=== PATIENT | male | born 1955 | race Caucasian/White ===

== ENCOUNTER 2016-05-18 17:28 | Inpatient (IN) | payer MEDICAID ==
--- NOTE | 2016-05-15 23:00 | NUR ---
PT SLEEPING, CALL LIGHT IN REACH, BED IS LOW,SRX2
[~2016-05-18] VITALS: Ht 188 cm; Wt 144.7 kg
[~2016-05-18 17:28] MED LIST: BAYER CHEWABLE81 MG PO; BENZONATATE200 MG PO; BUMEX 1 MG TAB1 MG PO; COREG6.25 MG PO; COUMADIN7.5 MG; COUMADIN7.5 MG PO; FLORASTOR250 MG PO; FLUTICASONE PRO16 GM NASAL; FOLIC ACID1 MG PO; GLUCOPHAGE1000 MG PO; HUMULIN 70100 UNIT/1 SQ; HYDROCHLOROTHIA25 MG PO; LEVAQUIN500 MG PO; LISINOPRIL10 MG PO; MUCINEX DM ER1 EAC1 PO; NICODERM C1 PATCH .1 TRANSDERM; PREDNISONE20 MG PO; SINGULAIR10 MG PO; TOPROL XL50 MG PO; ZANTAC150 MG PO
[2016-05-18 18:16] LABS: BASOPHILS 0.3 % (0.0-2.0); EOSINOPHILS 3.5 % (0-7); HEMATOCRIT 44.6 % (42.0-54.0); HEMOGLOBIN 14.1 g/dL (13.5-17.5); IMMATURE GRANULOCYTES 0.3 % (0-5); LYMPHOCYTES 19.3 % (15-50); MCH 28.3 pg (26.0-34.0); MCHC 31.6 g/dL (31.0-37.0); MCV 89.4 fL (80.0-100.0); MEAN PLATELET VOLUME 12.1 fL (7.4-10.4); MONOCYTES 6.1 % (2-11); NEUTROPHILS 70.5 % (40-80); PLATELET COUNT 217 10x3/uL (130-400); RBC 4.99 10x6/uL (4.20-6.10); RDW 14.7 % (11.5-14.5); WBC 11.2 10x3/uL (4.8-10.8)
[2016-05-18 18:35] LABS: ALBUMIN 3.4 g/dL (3.4-5.0); ALKALINE PHOSPHATASE 97 U/L (46-116); ALT (SGPT) 11 U/L (10-68); BILIRUBIN - TOTAL 0.92 mg/dL (0.2-1.3); CALC OSMOLALITY 283 mosm/kg (275-300); CALCIUM 9.4 mg/dL (8.5-10.1); CARBON DIOXIDE 36.4 mmol/L (21.0-32.0); CHLORIDE - SERUM 96 mmol/L (98-107); CREATININE - SERUM 0.9 mg/dL (0.6-1.3); PROTEIN - SERUM 7.3 g/dL (6.4-8.2); SODIUM 138 mmol/L (136-145); UREA NITROGEN 12 mg/dL (7-18); eGFR NON AFRICAN AMERICAN > 90 mL/min (90-120)
[2016-05-18 18:40] LABS: GLUCOSE 246 mg/dL (74-106)
[2016-05-18 18:44] LABS: PRO BNP 1017 pg/mL (0-125)
[2016-05-18 18:54] LABS: TROPONIN-I < 0.017 ng/mL (0.000-0.060)
[2016-05-18 19:06] LABS: INR 1.16 (0.85-1.17); PROTIME 14.7 SECONDS (11.6-15.0)
[2016-05-18 19:22] LABS: MAGNESIUM - SERUM 1.5 mg/dL (1.8-2.4)
--- NOTE | 2016-05-18 21:45 | NUR ---
RECEIVED FROM ER VIA WHEELCHAIR, 02-3.5 L, IV I RFA, LEVINQUIN INFUSING, PT DENIES ANY NEEDS, CALL LIGHT IN REACH
[2016-05-18] MEDS ORDERED: FUROSEMIDE40 MG PO (21:58)
[2016-05-18] MEDS ORDERED: FERROUS SULFAT325 MG PO (21:59)
[2016-05-18] MEDS ORDERED: METOPROLOL TART50 MG PO (22:00)
[2016-05-19 00:38] VITALS: BP 87/48
--- NOTE | 2016-05-19 03:53 | NUR ---
DE ALCHOLIZER AT BEDSIDE TO OBTAIN VITALS, CALL LIGHT IN REACH. WILL CONTINUE WITH PLAN OF CARE.
[2016-05-19 04:40] VITALS: BP 116/64
--- NOTE | 2016-05-19 05:04 | NUR ---
SLEEPING. HOME CPAP MACHINE ON, CALL LIGHT IN REACH, BED IS LOW, SRX2
[2016-05-19 06:19] LABS: CALC OSMOLALITY 288 mosm/kg (275-300); CALCIUM 8.9 mg/dL (8.5-10.1); CARBON DIOXIDE 34.4 mmol/L (21.0-32.0); CHLORIDE - SERUM 97 mmol/L (98-107); CREATININE - SERUM 0.8 mg/dL (0.6-1.3); POTASSIUM - SERUM 3.4 mmol/L (3.5-5.1); SODIUM 138 mmol/L (136-145); UREA NITROGEN 12 mg/dL (7-18); eGFR NON AFRICAN AMERICAN > 90 mL/min (90-120)
[2016-05-19 06:20] LABS: GLUCOSE 329 mg/dL (74-106)
[2016-05-19 06:40] LABS: BASOPHILS 0.4 % (0.0-2.0); EOSINOPHILS 3.4 % (0-7); HEMATOCRIT 42.3 % (42.0-54.0); HEMOGLOBIN 13.2 g/dL (13.5-17.5); IMMATURE GRANULOCYTES 0.2 % (0-5); LYMPHOCYTES 18.4 % (15-50); MCH 27.6 pg (26.0-34.0); MCHC 31.2 g/dL (31.0-37.0); MCV 88.5 fL (80.0-100.0); MEAN PLATELET VOLUME 12.7 fL (7.4-10.4); MONOCYTES 7.3 % (2-11); NEUTROPHILS 70.3 % (40-80); PLATELET COUNT 203 10x3/uL (130-400); RBC 4.78 10x6/uL (4.20-6.10); RDW 14.8 % (11.5-14.5); WBC 9.4 10x3/uL (4.8-10.8)
--- NOTE | 2016-05-19 07:15 | NUR ---
RECIEVED REPORT ON PATIENT,PATIENT IS ALERT AND ORIENTED AT THIS TIME. PATIENT HAS A R FA IV THAT IS SL AT THIS TIME. PATIENT IS ST ON MONITOR WITH A RATE OF 106. PATIENT DENIES ANY NEEDS OR PAIN AT THIS TIME. BED IS LOW AND LOCKED. CALL LIGHT IN REACH. WILL CONT TO MONITOR PATIENT. CPOC
[2016-05-19 08:00] VITALS: BP 114/61
--- NOTE | 2016-05-19 09:00 | NUR ---
LASIX GIVEN, ASSESSMENT DONE. PATIENT DENIES ANY NEEDS. CPOC
--- NOTE | 2016-05-19 10:00 | NUR ---
PATIENT IV INFILTRATED IN R FA, IV RESITED TO R WRIST, 22G. SL AT THIS TIME. R FA IV DC WITH CATH TIP INTACT. CPOC
--- NOTE | 2016-05-19 11:30 | NUR ---
PATIENT FSBS 275, 10 UNITS OF HUMALOG GIVEN PER SLIDING SCALE. CPOC
[2016-05-19 12:00] VITALS: BP 117/50
[2016-05-19 13:01] VITALS: Ht 188 cm; Wt 144.7 kg
[2016-05-19 16:00] VITALS: BP 122/63
--- NOTE | 2016-05-19 16:45 | NUR ---
8 UNITS OF HUMALOG GIVEN PER SLIDING SCALE. WAITING ON PHARMACY TO BRING UP PATIENT NOVOLIN. PATIENT DENIES ANY PAIN. DR MCFADDEN AT BEDSIDE. CPOC
--- NOTE | 2016-05-19 17:53 | NUR ---
POTASSIUM GIVEN PER ELECTROLYTE PROTCOL
--- NOTE | 2016-05-19 19:30 | NUR ---
RECEIVED REPORT, 023L, [id number], IV- R.WRIST-SL, CALL LIGHT IN REACH, BED IS LOW,SRX2
[2016-05-19 19:51] VITALS: BP 109/49
[2016-05-20 03:35] LABS: BASOPHILS 0.2 % (0.0-2.0); EOSINOPHILS 3.8 % (0-7); HEMOGLOBIN 12.8 g/dL (13.5-17.5); IMMATURE GRANULOCYTES 0.2 % (0-5); LYMPHOCYTES 24.2 % (15-50); MCH 27.8 pg (26.0-34.0); MCHC 31.2 g/dL (31.0-37.0); MCV 88.9 fL (80.0-100.0); MEAN PLATELET VOLUME 12.1 fL (7.4-10.4); MONOCYTES 6.1 % (2-11); NEUTROPHILS 65.5 % (40-80); PLATELET COUNT 185 10x3/uL (130-400); RBC 4.61 10x6/uL (4.20-6.10); RDW 14.8 % (11.5-14.5); WBC 10.4 10x3/uL (4.8-10.8)
[2016-05-20 04:04] LABS: CALC OSMOLALITY 285 mosm/kg (275-300); CALCIUM 9.1 mg/dL (8.5-10.1); CARBON DIOXIDE 34.2 mmol/L (21.0-32.0); CHLORIDE - SERUM 99 mmol/L (98-107); GLUCOSE 221 mg/dL (74-106); MAGNESIUM - SERUM 1.6 mg/dL (1.8-2.4); PHOSPHOROUS 3.5 mg/dL (2.5-4.9); POTASSIUM - SERUM 3.8 mmol/L (3.5-5.1); PRO BNP 1166 pg/mL (0-125); SODIUM 139 mmol/L (136-145); UREA NITROGEN 15 mg/dL (7-18); eGFR NON AFRICAN AMERICAN 81 mL/min (90-120)
--- NOTE | 2016-05-20 05:30 | NUR ---
CALL LIGHT IN REACH. WILL CONTINUE WITH PLAN OF CARE.
--- NOTE | 2016-05-20 07:25 | NUR ---
ASSESSMENT COMPLETED. TELEMERTY SHOWS SR. O2 AR 5 L/M PER NC. RIGHT WRIST SL. PT HAS PRESSURE STOCKING TO BOTH LEGS. STATES HE HAS HAD HIS TOES REMOVED ON LEFT FOOT. WOUND CARE NURSE NOTIFIED. WILL MONITOR
[2016-05-20 09:01] VITALS: BP 117/68
--- NOTE | 2016-05-20 11:06 | NUR ---
RESTING QUIETLY. WOUND CARE NURSE IN TO DRESS FEET.
--- NOTE | 2016-05-20 11:25 | NUR ---
WOUND CARE CONSULT: PT OF DR. JOSHUA AT [facility] FOR CHRONIC WOUNDS R/T AMPUTATION OF LEFT GREAT AND #2 TOES AND FOR CHRONIC WOUND ON PLANTAR FOOT (LEFT). WOUNDS WERE CLEANSED WITH WOUND ASSISTANT TEACHER AND DRIED. WOUND FROM AMP SITE RUNS FROM DORSAL FOOT TO PLANTAR BETWEEN GREAT TOE AND #2 TOE SITES. APPLIED MAXORB AG TO AREA. PLANTAR AREA ON LEFT FOOT BENEATH TOES #3 & #4 MEASURES 1CM X 2CM. CLEANSED AND COVERED WITH MAXORB AG. PADDED WITH 4X4S - WRAPPED WITH KERLIX AND SECURED WITH SPANDAGE. PT TOLERATED WELL.
--- NOTE | 2016-05-20 12:37 | NUR ---
UP ON SIDE OF BED FOR DIET. NO NEEDS VOICED. WILL MONITOR
[2016-05-20 13:09] VITALS: BP 101/55
--- NOTE | 2016-05-20 13:39 | NUR ---
Patient Name: YAZAN ANAYA Admission Status: ER Accout number: [id number] Admission Date: 05-18-2016 : 1955 Admission Diagnosis: Attending: FITZ Current LOS: 2 Anticipated DC Date: Planned Disposition: Home Primary Insurance: MEDICAID [place] Discharge Planning Comments: CM met with patient to discuss discharge planning/needs. The patient's plan is to discharge home where he lives alone. He states he has home oxygen at 3L/NC supplied by [facility]. He also states he has an electric wheelchair, cane, walker, shower chair, and handicap accessible ramps at the entry to his home. The patient states his neighbor "Jeromy Levine" ([phone]) is his caregiver when needed and changes his dressings for him. He states his transportation home will be "[employer]" ([phone]). The patient denies the need for home health/additional DME at discharge however he does request his director personal as prior to this admission. CM to follow and assist as needed with discharge planning/needs. Innersole Fitter: Isa Robles RN/CM * Is the patient Alert and Oriented? Yes 0 * How many steps to enter\\exit or inside your home? 0 0 * PCP Julio 0 * Pharmacy [facility] ([phone]) 0 * Preadmission Environment Home Alone 0 * ADLs Partial Dependent 0 * Partial ADLs (Assistance needed) Bathing 0 * Equipment Cane Nebulizer Oxygen Shower Chair Walker Wheelchair 0 * Other Equipment The patient states he has a director personal from [employer] who he states is with him 4 hours daily. 0 * List name and contact numbers for known caregivers / representatives who currently or will assist patient after discharge: Jeromy Levine (neighbor) [phone] 0 * Community resources currently utilized Home Health 0 * Please name any agencies selected above. [facility] however the patient was not receiving home health care but a personal aid. 0 * Additional services required to return to the preadmission environment? No 0 * Can the patient safely return to the preadmission environment? Yes 0 * Has this patient been hospitalized within the prior 30 days at any hospital? No 0 Grand Total: 0
--- NOTE | 2016-05-20 16:13 | NUR ---
LYING QUIETLY WITH EYES CLOSED. NO DISTRESS NOTED. TELEMERTY SHOWS SR. WILL MONITOR
[2016-05-20 16:43] VITALS: BP 104/60
--- NOTE | 2016-05-20 19:19 | NUR ---
RECEIVED REPORT, 02L, IV-R.WRIST-SL, TELEMTRY-SR, DENIES ANY NEEDS, CALL LIGHT IN REACH, BED IS LOW
[2016-05-20 21:00] VITALS: BP 128/66
[2016-05-21 00:42] VITALS: BP 114/64
--- NOTE | 2016-05-21 04:49 | NUR ---
X-RAY IN ROOM,DENIES ANY NEEDS,
--- NOTE | 2016-05-21 04:59 | NUR ---
PT RESTING WITHOUT C/O OR DISTRESS NOTED. CALL LIGHT WITHIN REACH. WILL CONT TO MONITOR.
[2016-05-21 07:18] VITALS: BP 119/65
[2016-05-21 07:26] VITALS: BP 119/65
[2016-05-21 07:36] LABS: BASOPHILS 0 % (0.0-2.0); EOSINOPHILS 0 % (0-7); HEMATOCRIT 41.4 % (42.0-54.0); HEMOGLOBIN 13.2 g/dL (13.5-17.5); IMMATURE GRANULOCYTES 0.4 % (0-5); LYMPHOCYTES 7.3 % (15-50); MCHC 31.9 g/dL (31.0-37.0); MCV 87.7 fL (80.0-100.0); MEAN PLATELET VOLUME 11.6 fL (7.4-10.4); MONOCYTES 2.3 % (2-11); PLATELET COUNT 179 10x3/uL (130-400); RBC 4.72 10x6/uL (4.20-6.10); RDW 14.5 % (11.5-14.5); WBC 10.7 10x3/uL (4.8-10.8)
[2016-05-21 07:44] LABS: CALCIUM 9.5 mg/dL (8.5-10.1); CARBON DIOXIDE 29.6 mmol/L (21.0-32.0); CHLORIDE - SERUM 95 mmol/L (98-107); CREATININE - SERUM 0.9 mg/dL (0.6-1.3); SODIUM 132 mmol/L (136-145); UREA NITROGEN 17 mg/dL (7-18); eGFR NON AFRICAN AMERICAN > 90 mL/min (90-120)
[2016-05-21 07:45] LABS: CALC OSMOLALITY 283 mosm/kg (275-300); GLUCOSE 397 mg/dL (74-106); POTASSIUM - SERUM 4.6 mmol/L (3.5-5.1)
--- NOTE | 2016-05-21 08:00 | NUR ---
PT AWAKE AND ALERT ORIENTED X 3 LUNGS WITH DIMINISHED SOUNDS NOTED. HRRR SINUS RYTHM AT A RATE OF 77 PER TELEMETRY. DRESSING IN TACT TO LEFT FOOT NOTED TO HAVE AMPUTATED TOES WILL MONITOR
--- NOTE | 2016-05-21 11:28 | NUR ---
TOOK ALL AM MEDS WITH NO DIFFICULTY NOTED
[2016-05-21 11:30] VITALS: BP 118/66
[2016-05-21 15:21] VITALS: BP 114/61
--- NOTE | 2016-05-21 16:35 | NUR ---
SITTING UP AT BEDSIDE NO DISTRES NOTED ABT INFUSING O2 PER OXYMIZER NOTED ALERT AND ORIENTED X 3
--- NOTE | 2016-05-21 19:16 | NUR ---
PT AWAKE AND ALERT NO DISTRES SNTOED VOICES NEEDS TO STAFF COVERED BLOOD SUGAR WITH 70/30 AT 1700 REFUSED HUMALOG COVERAGE
[2016-05-21 20:30] VITALS: BP 110/56
--- NOTE | 2016-05-21 22:00 | NUR ---
ALERT/AWAKE WATCHING TV. ADMIN SCHED MEDS. CHECKED BS AT 302. ADMIN HUMALOG 8 UNITS. REQUESTED ANOTHER DRSG ON LEFT FOOT. NO OTHER NEEDS OR DISCOMFORTS VOICED.
[2016-05-22 00:10] VITALS: BP 114/70
--- NOTE | 2016-05-22 01:48 | NUR ---
REQUESTED ASSISTANCE SETTING UP HIS C-PAP. REQUESTED LIGHTS OFF TO SLEEP.
[2016-05-22 04:20] VITALS: BP 110/68
--- NOTE | 2016-05-22 06:21 | NUR ---
AWAKE WATCHING TV. ADMIN SCHED MEDS. CHECKED BS AT 141. NO INSULIN GIVEN PER SLIDING SCALE. ALSO HELD NOVOLIN 70/30 66 UNITS.
[2016-05-22 07:35] VITALS: BP 116/74
[2016-05-22 08:00] VITALS: BP 114/61
[2016-05-22 08:16] LABS: BASOPHILS 0.1 % (0.0-2.0); EOSINOPHILS 0 % (0-7); HEMATOCRIT 42.7 % (42.0-54.0); HEMOGLOBIN 13.6 g/dL (13.5-17.5); IMMATURE GRANULOCYTES 0.4 % (0-5); LYMPHOCYTES 13.4 % (15-50); MCH 28.2 pg (26.0-34.0); MCHC 31.9 g/dL (31.0-37.0); MCV 88.4 fL (80.0-100.0); MEAN PLATELET VOLUME 11.9 fL (7.4-10.4); MONOCYTES 5.5 % (2-11); NEUTROPHILS 80.6 % (40-80); PLATELET COUNT 181 10x3/uL (130-400); RBC 4.83 10x6/uL (4.20-6.10); RDW 14.9 % (11.5-14.5)
[2016-05-22 08:29] LABS: CALC OSMOLALITY 279 mosm/kg (275-300); CALCIUM 9.5 mg/dL (8.5-10.1); CARBON DIOXIDE 32.3 mmol/L (21.0-32.0); CHLORIDE - SERUM 97 mmol/L (98-107); CREATININE - SERUM 0.7 mg/dL (0.6-1.3); MAGNESIUM - SERUM 1.7 mg/dL (1.8-2.4); PHOSPHOROUS 3.5 mg/dL (2.5-4.9); POTASSIUM - SERUM 4.1 mmol/L (3.5-5.1); SODIUM 138 mmol/L (136-145); UREA NITROGEN 16 mg/dL (7-18); eGFR NON AFRICAN AMERICAN > 90 mL/min (90-120)
[2016-05-22 08:31] LABS: GLUCOSE 146 mg/dL (74-106)
[2016-05-22 11:20] VITALS: BP 123/74
[2016-05-22 15:28] VITALS: BP 101/55
[2016-05-23] VITALS: BP 116/63
--- NOTE | 2016-05-23 00:40 | NUR ---
NURSE ROUNDS 21:30 - PT AWAKE, ALERT, ORIENTED, LYING IN BED, REQUESTING A SANDWICH AND ICE FOR HIS DIET [place]. PT DENIES ANY OTHER NEEDS AT THIS TIME. CONTINUE TO MONITOR CLOSELY. BED LOW, CALL LIGHT IN REACH, SIDE RAILS X 2, HOB 20 DEGREES.
--- NOTE | 2016-05-23 01:14 | NUR ---
22:45 - WENT IN TO HANG IV CEFEPIME ORDERED, AND DISCOVERED IV IN RIGHT UPPER ARM HAS INFILTRATED. RIGHT UPPER ARM IS SWOLLEN, WITH REDNESS AROUND INSERTION SITE. IV REMOVED WITH CATH TIP INTACT. WILL TRY TO RESITE. CONTINUE TO MONITOR CLOSELY.
--- NOTE | 2016-05-23 06:28 | NUR ---
PT AWAKE, ALERT, ORIENTED, IV TRIED TO BE RESITED X 2 UNSUCCESSFULLY. PT STATES HE WILL BE GOING HOME TODAY. DENIES ANY NEEDS. CONTINUE TO MONITOR CLOSELY.
[2016-05-23 06:31] LABS: BASOPHILS 0.1 % (0.0-2.0); EOSINOPHILS 0 % (0-7); HEMATOCRIT 44.1 % (42.0-54.0); HEMOGLOBIN 13.7 g/dL (13.5-17.5); IMMATURE GRANULOCYTES 0.4 % (0-5); LYMPHOCYTES 11.3 % (15-50); MCH 27.4 pg (26.0-34.0); MCHC 31.1 g/dL (31.0-37.0); MCV 88.2 fL (80.0-100.0); NEUTROPHILS 82.2 % (40-80); PLATELET COUNT 185 10x3/uL (130-400); RDW 14.9 % (11.5-14.5); WBC 11.1 10x3/uL (4.8-10.8)
[2016-05-23 07:06] LABS: CALCIUM 9.1 mg/dL (8.5-10.1); CARBON DIOXIDE 33.9 mmol/L (21.0-32.0); CHLORIDE - SERUM 98 mmol/L (98-107); MAGNESIUM - SERUM 1.6 mg/dL (1.8-2.4); PHOSPHOROUS 3.4 mg/dL (2.5-4.9); POTASSIUM - SERUM 4.5 mmol/L (3.5-5.1); SODIUM 138 mmol/L (136-145); UREA NITROGEN 19 mg/dL (7-18)
[2016-05-23 07:12] LABS: CALC OSMOLALITY 288 mosm/kg (275-300); CREATININE - SERUM 0.9 mg/dL (0.6-1.3); GLUCOSE 291 mg/dL (74-106); eGFR NON AFRICAN AMERICAN > 90 mL/min (90-120)
[2016-05-23 08:45] VITALS: BP 134/72
[2016-05-23 13:14] VITALS: BP 107/66
[2016-05-23] MEDS ORDERED: FLORAJEN3 CAPS460 MG PO ×3 (15:14→15:39)
[2016-05-23] MEDS ORDERED: LEVAQUIN750 MG PO ×2 (15:21→15:35)
[2016-05-23] MEDS ORDERED: PREDNISONE20 MG PO ×2 (15:21→15:39)
--- NOTE | 2016-05-23 17:21 | NUR ---
ALERT AND ORIENTED X4. DISCHARGE INSTRUCTIONS GIVEN VERBALLY AND WRITTEN. DISCHARGE PAPERS SIGNED ON CHART. ESCORT TO RIDE VIA WHEELCHAIR. REMAINS FREE FROM INJURY. HOME PORTABLE OXYGEN ON.
--- NOTE | 2016-05-27 11:11 | EC ---
PATIENT:YAZAN ANAYA DATE OF SERVICE: 05/18/16 SEX: M MEDICAL RECORD: [id number] DATE OF : [birth year] LOCATION:D. D.211 AGE OF PATIENT: 60 ADMISSION DATE: 05/18/16 REFERRING PHYSICIAN: INTERPRETING PHYSICIAN: VENTURA MAYER MD ECHOCARDIOGRAM REPORT ECHO CHARGES 4 ECHO COMPLETE CLINICAL DIAGNOSIS: DYSPNEA, CHF ECHOCARDIOGRAPHIC MEASUREMENTS (adult normal given) AC root (d.<3.7cm) 4.1 LV Septum d (<1.2 cm> 1.5 Valve Excursion 2.0 LV Septum (systole) 1.7 Left Atria (s.<4.0cm> 3.8 LVPW d(<1.2cm) 1.8 RV (d.<2.3cm) 5.6 LVPW (sytole) 2.0 LV diastole(<5.6CM) 4.8 MV E-F(>70mm/sec) LV systole 3.0 LVOT Diameter 1.9 MV exc.(>10mm) Est.ejection fraction (50-75%) Pericardial Effusion N DOPPLER: LVIT A 104 E 76.0 LA RVSP 22 LVOT 90 AOP1/2T Asc. Ao 120 RVOT 75 RA PA 130 AV Gradient Peak 5.74 AV Mean 2.76 AV Area 2.1 MV Gradient Peak 4.5 MV Mean 2.3 MV Area COMMENTS: Charge Aide: Saw ANTONIO Rn Burn:Rick Mayer TAPE# PACS DATE OF SERVICE: 05/19/2016 Echocardiogram FINDINGS: 1. Left ventricular chamber size is within normal limits. Left ventricular systolic function is normal. Overall ejection fraction estimated at 55%. 2. Left atrium is within normal limits at 3.8 cm. Right atrium and right ventricle chamber sizes are mildly dilated. 3. Valvular structures have normal structure and motion. ECHOCARDIOGRAM REPORT [id number] YAZAN ANAYA 4. Doppler interrogation reveals mild tricuspid regurgitation, no other valvular insufficiency or stenosis. Pulmonary systolic pressure is normal estimated 22 mmHg. 5. No evidence of pericardial effusion or left ventricular thrombus. TRANSINT:[id number] Voice Confirmation ID: [id number] DOCUMENT ID: [id number] VENTURA MAYER MD at 1111 CC: [id number] DICTATION DATE: 05/19/16 1512 LOGISTICS CLERK: 05/19/16 1625 DIS IN 05/23/16 [place] [id number] [place] [id number]
== END 2016-05-23 17:22 | disposition home or self-care (01) | DRG 291 ==
LOC: D.ER 17:28 → D.M2 20:16
PROVIDERS: Emergency Medicine; Emergency Medicine Emergency Medical Services; Nurse Practitioner Family; ADMIT Family Medicine Adult Medicine
DX: I11.0 Hypertensive heart disease with heart failure (principal); J96.01 Acute respiratory failure with hypoxia; J15.6 Pneumonia due to other Gram-negative bacteria; J13 Pneumonia due to Streptococcus pneumoniae; J44.0 Chronic obstructive pulmonary disease with (acute) lower respiratory infection; F17.203 Nicotine dependence unspecified, with withdrawal; J84.9 Interstitial pulmonary disease, unspecified; J44.1 Chronic obstructive pulmonary disease with (acute) exacerbation; I50.33 Acute on chronic diastolic (congestive) heart failure; E11.40 Type 2 diabetes mellitus with diabetic neuropathy, unspecified; Z79.4 Long term (current) use of insulin; E87.6 Hypokalemia; G47.33 Obstructive sleep apnea (adult) (pediatric); Z99.81 Dependence on supplemental oxygen; I25.10 Atherosclerotic heart disease of native coronary artery without angina pectoris; J30.9 Allergic rhinitis, unspecified; I27.2 Other secondary pulmonary hypertension; I07.1 Rheumatic tricuspid insufficiency; Z86.718 Personal history of other venous thrombosis and embolism; I25.2 Old myocardial infarction

== ENCOUNTER 2016-07-06 16:04 | Inpatient (IN) | payer MEDICAID ==
[~2016-07-06] VITALS: Ht 188 cm; Wt 144.5 kg
[~2016-07-06 16:04] MED LIST changes: +FERROUS SULFAT325 MG PO; +FLORAJEN3 CAPS460 MG PO; +FUROSEMIDE40 MG PO; +LEVAQUIN750 MG PO; +METOPROLOL TART50 MG PO
[2016-07-06 17:30] LABS: HEMATOCRIT 42.4 % (42.0-54.0); HEMOGLOBIN 13.6 g/dL (13.5-17.5); RBC 5.05 10x6/uL (4.20-6.10); WBC 22.7 10x3/uL (4.8-10.8)
[2016-07-06 17:31] LABS: MCH 26.9 pg (26.0-34.0); MCHC 32.1 g/dL (31.0-37.0); MEAN PLATELET VOLUME 11.9 fL (7.4-10.4); PLATELET COUNT 195 10x3/uL (130-400); RDW 15.6 % (11.5-14.5)
[2016-07-06 17:52] LABS: CALC OSMOLALITY 279 mosm/kg (275-300); CALCIUM 8.8 mg/dL (8.5-10.1); CARBON DIOXIDE 32.9 mmol/L (21.0-32.0); CHLORIDE - SERUM 97 mmol/L (98-107); CREATININE - SERUM 0.9 mg/dL (0.6-1.3); POTASSIUM - SERUM 3.3 mmol/L (3.5-5.1); PRO BNP 1704 pg/mL (0-125); SODIUM 138 mmol/L (136-145); UREA NITROGEN 9 mg/dL (7-18); eGFR NON AFRICAN AMERICAN > 90 mL/min (90-120)
[2016-07-06 17:54] LABS: EOSINOPHILS 5 % (0-7); GLUCOSE 195 mg/dL (74-106); LYMPHOCYTES 5 % (15-50); MONOCYTES 7 % (2-11); NEUTROPHILS 83 % (40-80); PLATELET ESTIMATE NORMAL
[2016-07-06 18:48] LABS: CKMB 0.1 U/L (0.0-3.6); CREATINE KINASE 49 UL (21-232); TROPONIN-I 0.036 ng/mL (0.000-0.060)
[2016-07-06 20:00] VITALS: BP 111/65
--- NOTE | 2016-07-06 20:09 | NUR ---
REPORT FROM JOHANNY JUAREZ.
--- NOTE | 2016-07-06 20:39 | NUR ---
ARRIVED TO FLOOR VIA STRETCHER, ACCOMPANIED BY HOSPITAL STAFF. ORIENTED TO FLOOR, CALL LIGHT IN REACH. PLACED ON TELEMETRY. NO NEEDS VOICED AT THIS TIME. WILL CONTINUE TO MONITOR. SEE NURSE ASSESSMENT.
[2016-07-06] MEDS ORDERED: IPRAT-ALBUT 0.5-3 ML UPD (23:06)
[2016-07-06] MEDS ORDERED: BUMEX 1 MG TAB1 MG PO (23:07)
[2016-07-07] VITALS: BP 107/58
[2016-07-07 04:00] VITALS: BP 118/77
[2016-07-07 05:41] LABS: BASOPHILS 0 % (0.0-2.0); EOSINOPHILS 0 % (0-7); HEMATOCRIT 42.7 % (42.0-54.0); HEMOGLOBIN 13.7 g/dL (13.5-17.5); IMMATURE GRANULOCYTES 0.3 % (0-5); MCH 27.2 pg (26.0-34.0); MCHC 32.1 g/dL (31.0-37.0); MCV 84.7 fL (80.0-100.0); MEAN PLATELET VOLUME 11.7 fL (7.4-10.4); MONOCYTES 1.7 % (2-11); PLATELET COUNT 175 10x3/uL (130-400); RBC 5.04 10x6/uL (4.20-6.10); RDW 15.3 % (11.5-14.5)
[2016-07-07 05:58] LABS: CALCIUM 8.9 mg/dL (8.5-10.1); CARBON DIOXIDE 32.1 mmol/L (21.0-32.0); CHLORIDE - SERUM 96 mmol/L (98-107); SODIUM 136 mmol/L (136-145); eGFR NON AFRICAN AMERICAN 81 mL/min (90-120)
[2016-07-07 06:05] LABS: CALC OSMOLALITY 288 mosm/kg (275-300); GLUCOSE 378 mg/dL (74-106); POTASSIUM - SERUM 3.9 mmol/L (3.5-5.1); UREA NITROGEN 15 mg/dL (7-18)
[2016-07-07 06:15] LABS: WBC 10.2 10x3/uL (4.8-10.8)
[2016-07-07 08:08] VITALS: BP 139/98
--- NOTE | 2016-07-07 10:37 | NUR ---
Patient Name: YAZAN ANAYA Admission Status: ER Accout number: [id number] Admission Date: 07-06-2016 : 1955 Admission Diagnosis: Attending: SONYA Current LOS: 1 Anticipated DC Date: Planned Disposition: Home Health Service Primary Insurance: MEDICAID [place] Discharge Planning Comments: * Is the patient Alert and Oriented? Yes 0 * How many steps to enter\exit or inside your home? NONE 0 * PCP DR. MCINTYRE 0 * Pharmacy [facility] 0 * Preadmission Environment Home Alone 0 * ADLs Partial Dependent 0 * Partial ADLs (Assistance needed) Bathing 0 * Equipment Cane Nebulizer Oxygen Shower Chair Walker Wheelchair 0 * Other Equipment HOME AND PORTABLE OXYGEN STANDARD AND POWER WHEELCHAIR [facility] PATIENT - MEDICAL EQUIPMENT PROVIDER 0 * List name and contact numbers for known caregivers / representatives who currently or will assist patient after discharge: MEHRDAD GALAN, NEIGHBOR, JASE BRAY, FRIEND, 0 * Community resources currently utilized Private Duty Care 0 * Please name any agencies selected above. [facility] [phone] DAILY, 4 HOURS PER DAY 0 * Additional services required to return to the preadmission environment? No 0 * Can the patient safely return to the preadmission environment? Yes 0 * Has this patient been hospitalized within the prior 30 days at any hospital? Yes 0 CM MET WITH PT IN ROOM TO DISCUSS DISCHARGE PLANNING AND NEEDS. PT REPORTS LIVING AT HOME DEPENDENT ON TIMBER MANAGEMENT PROFESSOR SERVICES FROM [facility] FOR BATHING; PT REPORTS BEING INDEPENDENT OTHERWISE. PT LIVES ALONE. PT REPORTS HAVING ALL NEEDED MEDICAL EQUIPMENT PROVIDED BY [facility] PATIENT. PT HAS PERSONAL CARE THROUGH [facility] DAILY FOR 4 HOURS PER DAY. CM DISCUSSED AVAILABILITY OF HOME HEALTH, REHAB SERVICES AND MEDICAL EQUIPMENT. PT WOULD ACCEPT HOME HEALTH IF THE DOCTOR FEELS HE NEEDS IT. PT REPORTS EATING WHAT HE WANTS AT HOME AND ALSO CONTINUES TO SMOKE. PT IS NOT INTERESTED IN QUITTING SMOKING CIGARETTES. PT REPORTS A FRIEND WILL PICK HIM UP FOR DISCHARGE HOME. PT SIGNED CHOICE FOR [facility]. PT PLANS TO DISCHARGE HOME ALONE, HAS AIDE SERVICES ONLY AT THIS TIME AND WILL ACCEPT HOME HEALTH. CM TO ARRANGE HOME HEALTH IF PHYSICIAN AGREES WITH THE NEED AND PROVIDES ORDERS. CM TO FOLLOW AND ASSIST IF NEEDED. [employer]: Yazan Oconnell
[2016-07-07 12:27] VITALS: BP 130/93
[2016-07-07 12:43] VITALS: Ht 188 cm; Wt 144.5 kg
[2016-07-07 16:00] VITALS: BP 127/70
--- NOTE | 2016-07-07 19:31 | NUR ---
RESUMED CARE OF PT, LYING IN BED WITH EYES CLOSED RESPIRATIONS EVEN AND UNLABORED ON 3LPM VIA NC. 78 SR ON TELEMETRY. LEFT AC INFUSING LEVAQUIN @ 100. CALL LIGHT IN REACH. NO NEEDS VOICED AT THIS TIME. WILL CONTINUE TO MONIOTR. SEE NURSE ASSESSMENT.
[2016-07-07 20:00] VITALS: BP 103/47
--- NOTE | 2016-07-08 00:11 | NUR ---
SHAREPOINT APPLICATION ARCHITECT AT BEDSIDE TO OBTAIN VITALS, CALL LIGHT IN REACH. WILL CONTINUE WITH PLAN OF CARE.
[2016-07-08 04:00] VITALS: BP 91/67
[2016-07-08 06:40] LABS: BASOPHILS 0 % (0.0-2.0); EOSINOPHILS 0 % (0-7); HEMATOCRIT 40.4 % (42.0-54.0); HEMOGLOBIN 12.8 g/dL (13.5-17.5); IMMATURE GRANULOCYTES 0.4 % (0-5); LYMPHOCYTES 8.5 % (15-50); MCH 26.7 pg (26.0-34.0); MCHC 31.7 g/dL (31.0-37.0); MCV 84.3 fL (80.0-100.0); MEAN PLATELET VOLUME 12.5 fL (7.4-10.4); MONOCYTES 2.8 % (2-11); NEUTROPHILS 88.3 % (40-80); PLATELET COUNT 190 10x3/uL (130-400); RBC 4.79 10x6/uL (4.20-6.10); RDW 15.1 % (11.5-14.5); WBC 9.6 10x3/uL (4.8-10.8)
[2016-07-08 06:59] LABS: CALCIUM 8.8 mg/dL (8.5-10.1); CARBON DIOXIDE 32.7 mmol/L (21.0-32.0); CHLORIDE - SERUM 99 mmol/L (98-107); CREATININE - SERUM 0.9 mg/dL (0.6-1.3); POTASSIUM - SERUM 3.8 mmol/L (3.5-5.1); SODIUM 136 mmol/L (136-145); eGFR NON AFRICAN AMERICAN > 90 mL/min (90-120)
[2016-07-08 07:01] LABS: CALC OSMOLALITY 287 mosm/kg (275-300); GLUCOSE 317 mg/dL (74-106); UREA NITROGEN 23 mg/dL (7-18)
[2016-07-08 08:00] VITALS: BP 111/61
--- NOTE | 2016-07-08 09:32 | NUR ---
RESP UL ON 02 3L NC. TELEMETRY SR. CALL LIGHT IN REACH. WILL CONT. PLAN OF CARE.
[2016-07-08 12:00] VITALS: BP 122/68
--- NOTE | 2016-07-08 15:57 | HP ---
PATIENT: YAZAN ANAYA MEDICAL RECORD: [id number] ACCOUNT: [id number] LOCATION:[address] : [birth year] ADMISSION DATE: 07/06/16 HISTORY AND PHYSICAL EXAMINATION REASON FOR ADMISSION: Increasing shortness of breath and wheezing with cough. HISTORY OF PRESENT ILLNESS: The patient is a 60-year-old male followed normally at the [facility]. He notes the last 24 hours with increasing cough, nonproductive, and wheezing. He became more short of breath. He said he has seen Dr. Edward for his left foot wound 2 days ago and was breathing fine. He denied fever or chest pain. He has had no increasing edema. His ejection fraction was noted in May of this year to be 50%-55% and heart cath performed 08/23/2015 showed normal coronary arteries. The patient is now admitted because of respiratory distress. Initial sat per EMS was 86% on room air. PAST MEDICAL HISTORY: O2-dependent COPD, diabetes mellitus, history of DVT, left diabetic foot ulcer; history of congestive heart failure, diastolic-type; nicotine dependence, history of pneumonia, hypoglycemia, severe pulmonary hypertension; adult obstructive sleep apnea, on CPAP; questionable pulmonary fibrosis. PAST SURGICAL HISTORY: He has left foot great toe amputated previously for gangrene reasons. He had colonoscopy with internal hemorrhoids found in 2015, peripheral vascular disease, amputation of his left second toe. ALLERGIES: None known. FAMILY HISTORY: Positive for hypertension. CURRENT MEDICATIONS: Mucinex 600 mg b.i.d., folic acid 1 mg daily, aspirin 81 mg daily, lisinopril 10 mg a day, metformin 1000 mg p.o. b.i.d. with meals, ranitidine 150 mg p.o. b.i.d., Lopressor 50 mg p.o. b.i.d., ferrous sulfate 325 mg p.o. daily, Lasix 40 mg q.a.m.; Humulin 70/30 66 units in the morning, 55 units in the evening; DuoNeb updrafts q.6 hours. FAMILY HISTORY: Lung disease, lung cancer in his father. SOCIAL HISTORY: He continues to smoke, but less so. He does not have any drug use. Followed at the [facility], he states in the wound clinic with Dr. Edward. PHYSICAL EXAMINATION: VITAL SIGNS: On admission show a temperature of 98.7 Fahrenheit, pulse 100 and regular, respirations of 20 and unlabored, blood pressure 116/65 with a sat of 86% on room air. GENERAL: The patient is alert and oriented at this time without respiratory distress. HEENT: Eyes are clear. Oropharynx shows fair dentition. NECK: No JVD or bruits. CHEST: He has expiratory wheezes in the upper lobes. No crackles appreciated. HEART: Tachycardic without murmur. ABDOMEN: Obese, soft, nontender. GENITOURINARY: Unremarkable. HISTORY AND PHYSICAL [id number] YAZAN ANAYA RECTAL: Deferred. EXTREMITIES: He has 2+ pretibial edema of the knees. His left foot shows amputation of the great and second toe and he has a plantar diabetic foot ulcer. NEUROLOGICAL: He is oriented to person, place, and time. Decreased sensation to touch in both feet and ankles noted. Gait was not tested. LABORATORY DATA: White count 22.7 thousand, H&H of 13.6 and 42.4, platelet count 195,000, with left shift. Chemistry shows a serum CO2 of 32.1, BUN and creatinine of 15 and 1.0, glucose was 378. Lactic acid was 2.2. Cardiac enzymes were negative. Chest x-ray showed evidence of pulmonary hypertension, diffuse pulmonary vascular congestion and interstitial edema. ASSESSMENT: 1. Chronic obstructive pulmonary disease exacerbation, respiratory failure. 2. Leukocytosis, possible pneumonia. 3. Pulmonary hypertension. 4. History of diastolic congestive heart failure with normal cardiac catheterization. 5. Diabetes mellitus. 6. Obesity. 7. Obstructive sleep apnea. 8. Diabetic foot ulcer. 9. Peripheral vascular disease. 10. Essential hypertension. PLAN: The patient will be admitted for pulmonary toilet, IV antibiotics empirically. Wound consult. Pulmonary consult if indicated. TRANSINT:[id number] Voice Confirmation ID: [id number] DOCUMENT ID: [id number] BRIAN ESQUIVEL MD at 1557 CC: [id number] DICTATION DATE: 07/07/1631 GROUP LEADER SEMICONDUCTOR TESTING: 07/07/16826 ADM IN [place] [id number] [place] [address]
[2016-07-08 16:00] VITALS: BP 123/73
--- NOTE | 2016-07-08 19:00 | NUR ---
INITIAL ROUNDS MADE. PT SITTING UP IN BED WATCHING TV. DENIES NEEDS OR C/O AT THIS TIME. WILL CONT TO MONITOR.
--- NOTE | 2016-07-08 20:15 | NUR ---
IV TO LEFT UPPERARM SWOLLEN AND REDDENED, FIRM TO PALPATION. IV REMOVED WITH CATH INTACT. PT RESITED WITH 22 GA ANGIOCATH TO LEFT FOREARM AND TOLERATED WELL. DRESSING APPLIED PER POLICY. ORANGE CAP USED TO SALINE LOCK.
[2016-07-08 21:01] VITALS: BP 133/52
--- NOTE | 2016-07-08 21:15 | NUR ---
HS MEDS GIVEN WITHOUT DIFFICULTY. FSBS TAKEN AND GIVEN 70/30 INSULIN ORDERED.
--- NOTE | 2016-07-08 23:58 | NUR ---
NO CHANGES NOTED IN ASSESSMENT. NO NEEDS VOICED. CALL LIGHT WITHIN REACH. WILL CONT TO MONITOR.
[2016-07-09 01:01] VITALS: BP 134/86
[2016-07-09 04:57] VITALS: BP 101/69
[2016-07-09 05:30] LABS: BASOPHILS 0 % (0.0-2.0); EOSINOPHILS 0 % (0-7); HEMOGLOBIN 12.9 g/dL (13.5-17.5); IMMATURE GRANULOCYTES 0.3 % (0-5); LYMPHOCYTES 9.5 % (15-50); MCH 26.7 pg (26.0-34.0); MCHC 31.5 g/dL (31.0-37.0); MCV 84.7 fL (80.0-100.0); MEAN PLATELET VOLUME 11.8 fL (7.4-10.4); MONOCYTES 4.4 % (2-11); NEUTROPHILS 85.8 % (40-80); PLATELET COUNT 172 10x3/uL (130-400); RBC 4.84 10x6/uL (4.20-6.10); RDW 15.1 % (11.5-14.5); WBC 9.9 10x3/uL (4.8-10.8)
[2016-07-09 05:43] LABS: CALC OSMOLALITY 290 mosm/kg (275-300); CALCIUM 8.9 mg/dL (8.5-10.1); CARBON DIOXIDE 32.1 mmol/L (21.0-32.0); CHLORIDE - SERUM 100 mmol/L (98-107); CREATININE - SERUM 0.9 mg/dL (0.6-1.3); POTASSIUM - SERUM 3.8 mmol/L (3.5-5.1); SODIUM 139 mmol/L (136-145); UREA NITROGEN 25 mg/dL (7-18); eGFR NON AFRICAN AMERICAN > 90 mL/min (90-120)
[2016-07-09 05:49] LABS: GLUCOSE 256 mg/dL (74-106)
--- NOTE | 2016-07-09 07:27 | NUR ---
ASSESSMENT COMPLETED. AWAKE AND ALERT. TELEMERTY SHOWS SB 57. 02 AT 3 L/M PER NC. EDEMA TO LOWER LEGS WITH DRSG INTACT. DENIES ANY NEEDS. CALL LIGHT IN REACH WITH SR UP.
[2016-07-09 08:23] VITALS: BP 139/83
--- NOTE | 2016-07-09 10:34 | NUR ---
UP IN BEDSIDE CHAIR. DENIES ANY NEEDS.
[2016-07-09 12:17] VITALS: BP 126/71
--- NOTE | 2016-07-09 14:26 | NUR ---
ON 3L PER NC. DENIES ANY NEEDS AT PRESENT TIME EXCEPT FOR LARGE GLASS OF ICE FOR DIET DEBORA MCNAMARA. WATCHING BASKETBALL GAME. WILL CONTINUE TO [facility].
[2016-07-09 15:15] VITALS: BP 125/71
--- NOTE | 2016-07-09 16:05 | NUR ---
IV RESITED TO LEFT HAND WITH A 20 ЕЛЕНА CATH TIMES 1 STICK. DENIES ANY NEEDS. CALL LIGHT IN REACH WITH SR UP. TELEMERTY SHOWS SR.
--- NOTE | 2016-07-09 17:29 | NUR ---
LYING QUIETLY. NO NEEDS VOICED. CALL LIGHT IN REACH WITH SR UP. TELEMERTY SHOWS SR. WILL MONITOR
[2016-07-09 20:00] VITALS: BP 141/80; BP 170/62
[2016-07-10] VITALS: BP 145/89; BP 167/77
--- NOTE | 2016-07-10 00:52 | NUR ---
LAPIDARIST AT BEDSIDE FOR VS. NEEDS ADDRESSED, CALL LIGHT IN REACH. WILL CONT TO MONITOR.
[2016-07-10 04:00] VITALS: BP 117/63
--- NOTE | 2016-07-10 05:00 | NUR ---
RESTING WELL WITH EYES CLOSED, CONT TO MONITOR.
[2016-07-10 05:32] LABS: BASOPHILS 0 % (0.0-2.0); EOSINOPHILS 0 % (0-7); HEMATOCRIT 41.2 % (42.0-54.0); HEMOGLOBIN 12.9 g/dL (13.5-17.5); IMMATURE GRANULOCYTES 0.3 % (0-5); LYMPHOCYTES 14.8 % (15-50); MCH 26.5 pg (26.0-34.0); MCHC 31.3 g/dL (31.0-37.0); MCV 84.6 fL (80.0-100.0); MEAN PLATELET VOLUME 12.2 fL (7.4-10.4); MONOCYTES 8.4 % (2-11); NEUTROPHILS 76.5 % (40-80); PLATELET COUNT 183 10x3/uL (130-400); RBC 4.87 10x6/uL (4.20-6.10); RDW 14.9 % (11.5-14.5); WBC 10.3 10x3/uL (4.8-10.8)
[2016-07-10 05:45] LABS: CALC OSMOLALITY 284 mosm/kg (275-300); CALCIUM 8.6 mg/dL (8.5-10.1); CARBON DIOXIDE 35.3 mmol/L (21.0-32.0); CHLORIDE - SERUM 100 mmol/L (98-107); CREATININE - SERUM 0.9 mg/dL (0.6-1.3); POTASSIUM - SERUM 3.4 mmol/L (3.5-5.1); SODIUM 140 mmol/L (136-145); UREA NITROGEN 25 mg/dL (7-18); eGFR NON AFRICAN AMERICAN > 90 mL/min (90-120)
[2016-07-10 05:46] LABS: GLUCOSE 141 mg/dL (74-106)
--- NOTE | 2016-07-10 06:00 | NUR ---
POTASSIUM 3.4--ELECTROLYTE PROTOCOL INITIATED. 40MEQ GIVEN ORAL AT THIS TIME AND LAB ENTERED FOR 10AM FOR REDRAW.
[2016-07-10 07:00] VITALS: BP 139/71
--- NOTE | 2016-07-10 07:55 | NUR ---
ASSESSMENT COMPLETED. TELEMERTY SHOWS SR. O2 AT 3 L/M PER NC. SL TO LEFT HAND. DENIES ANY NEEDS. CALL LIGHT IN REACH WITH SR UP TIMES 2. WILL MONITOR
--- NOTE | 2016-07-10 10:26 | NUR ---
RESTING QUIETLY WITH EYES CLOSED. RESP ARE EVEN AND NON LABORED. WILL CONTINUE TO MONITOR.
[2016-07-10 11:56] VITALS: BP 162/90
--- NOTE | 2016-07-10 14:04 | NUR ---
LYING QUIETLY WITH EYES CLOSED. TELEMPrenovaSHOWS SR. WILL MONITOR
--- NOTE | 2016-07-10 15:37 | NUR ---
UP TO BR. GAIT STEADY. DENIES ANY NEEDS. TELEMERTY SHOWS SR.
[2016-07-10 16:00] VITALS: BP 149/65
--- NOTE | 2016-07-10 19:00 | NUR ---
INITIAL ROUNDS MADE. PT SITTING UP IN BED WATCHING TV. CALL LIGHT IN REACH. PT DENIES NEEDS OR C/O AT THIS TIME. WILL CONT TO MONITOR.
[2016-07-10 20:00] VITALS: BP 145/85
[2016-07-11] VITALS: BP 145/80
--- NOTE | 2016-07-11 00:21 | NUR ---
INVESTIGATOR UTILITY BILL COMPLAINTS AT BEDSIDE FOR VS. NEEDS ADDRESSED, CALL LIGHT IN REACH. WILL CONT TO MONITOR.
[2016-07-11 04:00] VITALS: BP 143/79
[2016-07-11 05:04] LABS: BASOPHILS 0 % (0.0-2.0); EOSINOPHILS 0 % (0-7); HEMATOCRIT 41.5 % (42.0-54.0); HEMOGLOBIN 13.3 g/dL (13.5-17.5); IMMATURE GRANULOCYTES 0.5 % (0-5); LYMPHOCYTES 14.7 % (15-50); MCV 84.3 fL (80.0-100.0); MEAN PLATELET VOLUME 11.8 fL (7.4-10.4); MONOCYTES 9.5 % (2-11); NEUTROPHILS 75.3 % (40-80); PLATELET COUNT 158 10x3/uL (130-400); RBC 4.92 10x6/uL (4.20-6.10); WBC 10.4 10x3/uL (4.8-10.8)
[2016-07-11 05:15] LABS: CALCIUM 8.8 mg/dL (8.5-10.1); CARBON DIOXIDE 34.1 mmol/L (21.0-32.0); CHLORIDE - SERUM 99 mmol/L (98-107); CREATININE - SERUM 0.9 mg/dL (0.6-1.3); POTASSIUM - SERUM 3.9 mmol/L (3.5-5.1); SODIUM 139 mmol/L (136-145); eGFR NON AFRICAN AMERICAN > 90 mL/min (90-120)
[2016-07-11 05:20] LABS: CALC OSMOLALITY 292 mosm/kg (275-300); GLUCOSE 241 mg/dL (74-106); UREA NITROGEN 33 mg/dL (7-18)
--- NOTE | 2016-07-11 06:04 | NUR ---
RESTING WELL WITH EYES CLOSED, CONT TO MONITOR.
[2016-07-11] MEDS ORDERED: HUMULIN 70100 UNIT/1 SC (07:24)
[2016-07-11] MEDS ORDERED: MEDROL DOSE PACK4 MG PO (07:25)
[2016-07-11 07:42] VITALS: BP 143/81
--- NOTE | 2016-07-11 09:20 | NUR ---
TELEMETRY SR. RESP UL ON 02 3L NC. CALL LIGHT IN REACH. WILL CONT. PLAN OF CARE.
--- NOTE | 2016-07-11 10:24 | NUR ---
Patient Name: YAZAN ANAYA Encounter No: [id number] : 1955 Primary Insurance: MEDICAID [facility] DC Date: 07-11-2016 Planned Disposition: Home Health Service External Planned Provider: [facility] DCP follow-up note: CM RECEIVED DISCHARGE AND HOME HEALTH ORDER, SPOKE TO PT IN ROOM WHO REPORTS HE WILL ACCEPT HOME HEALTH WITH [facility]. PT REPORTS HAVING SOMEONE ON THE WAY TO PICK HIM UP NOW AND WILL BE LEAVING SHORTLY. CM DISCUSSED AVAILABILITY OF REHAB AND MEDICAL EQUIPMENT, PT DENIES FURHTER DISCHARGE NEEDS. CM CALLED [facility], , SPOKE TO LEONOR WHO WILL CONTACT DR. MCINTYRE'S OFFICE FOR HOME HEALTH ORDERS AND WILL ADMIT PT TO [facility] IF DR. MCINTYRE WILL PROVIDE HOME HEALTH ORDERS. CM FAXED REFERRAL TO [facility] AT [phone]. Yazan Oconnell, CASE MANAGEMENT
--- NOTE | 2016-07-11 11:23 | NUR ---
IV AND TELEMETRY DCD. DC PLANS GIVEN. UNDERSTANDING VOICED. ESCORTED TO CAR BY W/C.
--- NOTE | 2016-07-15 08:04 | DS ---
PATIENT:ASHOK WALTON :[birth year] MEDICAL RECORD: [id number] DISCHARGE SUMMARY ADMISSION DATE: 07/06/16 DISCHARGE DATE: 07/11/16 DISCHARGE DIAGNOSES: Chronic obstructive pulmonary disease exacerbation, diabetes mellitus, obesity, hypertension, hypoxemia. Continuing discharged on Ashok Walton with discharge diagnosis of pulmonary edema, tobacco dependence, leukocytosis improved obstructive sleep apnea a dull type, diastolic congestive heart failure. HOSPITAL COURSE: A 60-year-old male with history of severe O2 dependent COPD, presented to the Emergency Room with marked shortness of breath. Please see H&P for presenting symptoms, he was placed on updrafts q.4 hours IV Solu-Medrol, antibiotics. Chest x-ray showed pulmonary edema, but no emelina infiltrate. Blood sugars were quite elevated. He was titrated with his sliding scale insulin with appropriate improvement. He had a slight bump in his sugars, on Solu-Medrol that is improved. He was seen in consultation with Dr. Ramos from pulmonary, he had a Brovana to his updraft therapy. His followup chest x-ray yesterday is essentially clear. He is now with oxygen saturations of 97% to 98% on 3 liters, he is normally on 4 liters at home he states. DISCHARGE LABORATORY DATA: Shows potassium of 3.5. White count 10,000, H&H of 12.9 and 41.2 and a serum glucose of 141. I have adjusted his insulin upwards on his h.s. dosing, he has tolerated that well. We will discharge home today to follow up with his local physician in [place] in 1 week. DISCHARGE MEDICATIONS: 70/30 Humulin 65 units subQ at night, 69 units subQ in the morning, Medrol Dosepak 4 mg as directed, Zantac 150 mg p.o. b.i.d., Glucophage 1000 mg p.o., lisinopril 10 mg daily, aspirin 81 mg a day, folic acid 1 mg a day, Mucinex ER 1 tab p.o. b.i.d., Singulair 10 mg with evening meal, ferrous sulfate 325 mg p.o. daily, Lopressor 50 mg p.o. b.i.d., DuoNeb updrafts q.i.d. q.4 hours p.r.n., Bumex 1 mg p.o. b.i.d. DIET: ADA 2000 calorie, no added salt. O2 at 3 liters at rest, 4 liters with activity, BiPAP at h.s. TRANSINT:[id number] Voice Confirmation ID: [id number] DOCUMENT ID: [id number] BRIAN ESQUIVEL MD at 0804 CC: [id number] DICTATION DATE: 07/11/16729 FUR TRIMMING MACHINE OPERATOR: 07/11/16 1056 DIS IN 07/11/16 [place] [address] [place] [address]
--- NOTE | 2016-08-05 13:49 | CN ---
PATIENT NAME:YAZAN ANAYA MEDICAL RECORD: [id number] : 53 LOCATION:D. D.2115 ADMIT DATE: 07/06/16 ACCOUNT: [id number] CONSULTING PHYSICIAN: NEGIN ARREDONDO MD REFERRING PHYSICIAN: TRUONG BELL MD DATE OF CONSULTATION: 07/07/2016 CONSULT REQUESTING PHYSICIAN: Truong Bell MD. REASON FOR CONSULTATION: Acute exacerbation of chronic obstructive pulmonary disease, congestive heart failure. HISTORY OF PRESENT ILLNESS: Mr. Anaya is a 60-year-old gentleman who was doing well until yesterday and the patient had developed coughing, wheezing and shortness of breath. He came into the ER and admitted with a COPD exacerbation. He was also having orthopnea with generalized body aches and pain. There is no chest pain. REVIEW OF SYSTEMS: CONSTITUTIONAL: He has generalized body aches and pains. HEENT: Sinus congestion. RESPIRATORY: As in history of present illness. CARDIOVASCULAR: Negative. GASTROINTESTINAL: Negative. GENITOURINARY: Negative. Other review of the systems is negative. PAST MEDICAL HISTORY: 1. COPD, home oxygen dependent. 2. Obstructive sleep apnea. 3. Congestive heart failure. 4. Peripheral arterial disease. 5. Coronary artery disease. 6. Diabetes mellitus type 2 with neuropathy. 7. History of deep venous thrombosis. 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 ALLERGIES: There are no known drug allergies. PRESENT MEDICATIONS: [employer] was reviewed. PERSONAL AND SOCIAL HISTORY: The patient still everyday smoker. He is a nondrinker. FAMILY HISTORY: Significant for lung disease and cancer. PHYSICAL EXAMINATION: GENERAL: Now, the patient is lying comfortably at bed. He is not in acute distress. VITAL SIGNS: The blood pressure 130/93, pulse is 73, respiration is 21, temperature is 98.2, SPO2 is 98% on 5 liters nasal cannula. HEENT: Conjunctivae are pink. Sclerae nonicteric. NECK: Supple, no JVD. CONSULT REPORT [id number] YAZAN ANAYA CHEST: Excursion is minimal on both sides prolonged expiration with wheezing. There is also bilateral basal crackles. HEART: Regular, normal sound, no murmur. ABDOMEN: Soft, bowel sounds present. No hepatosplenomegaly. RECTAL: Deferred. EXTREMITIES: No cyanosis, no clubbing, no pedal edema. SKIN: Warm, normal turgor. CENTRAL NERVOUS SYSTEM: The patient is awake and alert. There are no obvious cranial nerve abnormality. The gait was not tested. IMAGING: Chest radiograph, there is increased interstitial marking. There is no consolidation as such. LABORATORY DATA: CBC: The WBC on admission was 22,000, hemoglobin 13.6, hematocrit 42.4. The WBC is 10.2 today. Chemistry: Sodium 136, potassium 3.9, BUN is 15, creatinine is 1, glucose 378. IMPRESSION: 1. Acute exacerbation of chronic obstructive pulmonary disease. 2. Pulmonary edema. 3. Acute tracheobronchitis. 4. Tobacco dependence syndrome. 5. Leukocytosis that has been improved. 6. Obstructive sleep apnea. 7. Congestive heart failure. RECOMMENDATION: 1. Start methylprednisolone IV. Continue Levaquin IV, Brovana and budesonide nebulizer. 2. Albuterol/ipratropium nebulizer. 3. Singulair 10 mg daily. 4. The patient can use his BiPAP at night. 5. Supplemental oxygen. 6. Follow up labs and chest radiograph in the morning. Dr. Bell, once again thanks for involving me in the care of Mr. Anaya. TRANSINT:[id number] Voice Confirmation ID: [id number] DOCUMENT ID: [id number] NEGIN ARREDONDO MD at 1349 CC: TRUONG BELL MD [id number] DICTATION DATE: 07/07/16 162 DEBLOCKER: 07/07/161912 DIS IN 07/11/16 [facility] [address] [place] [address]
== END 2016-07-11 11:24 | disposition home health service (06) | DRG 191 ==
LOC: D.ER 16:04 → D.M2 18:56 → OBSVTIME 18:56 → D.M2 18:56
PROVIDERS: Internal Medicine Pulmonary Disease; Nurse Practitioner Acute Care; ADMIT Family Medicine
DX: J44.1 Chronic obstructive pulmonary disease with (acute) exacerbation (principal); I50.30 Unspecified diastolic (congestive) heart failure; F17.203 Nicotine dependence unspecified, with withdrawal; I47.1 Supraventricular tachycardia; Z68.41 Body mass index [BMI] 40.0-44.9, adult; I11.0 Hypertensive heart disease with heart failure; I73.9 Peripheral vascular disease, unspecified; E66.9 Obesity, unspecified; E11.621 Type 2 diabetes mellitus with foot ulcer; L97.509 Non-pressure chronic ulcer of other part of unspecified foot with unspecified severity; G47.33 Obstructive sleep apnea (adult) (pediatric); Z99.81 Dependence on supplemental oxygen; I34.0 Nonrheumatic mitral (valve) insufficiency; Z86.718 Personal history of other venous thrombosis and embolism

== ENCOUNTER 2016-08-10 16:34 | Inpatient (IN) | payer MEDICAID ==
[~2016-08-10] VITALS: Ht 188 cm; Wt 143.7 kg
[~2016-08-10 16:34] MED LIST changes: +HUMULIN 70100 UNIT/1 SC; +IPRAT-ALBUT 0.5-3 ML UPD; +MEDROL DOSE PACK4 MG PO
[2016-08-10 17:30] LABS: BASOPHILS 0.1 % (0.0-2.0); EOSINOPHILS 0 % (0-7); HEMOGLOBIN 12.6 g/dL (13.5-17.5); IMMATURE GRANULOCYTES 0.4 % (0-5); LYMPHOCYTES 13.5 % (15-50); MCH 26.1 pg (26.0-34.0); MCHC 31.5 g/dL (31.0-37.0); MEAN PLATELET VOLUME 11.1 fL (7.4-10.4); MONOCYTES 6.3 % (2-11); NEUTROPHILS 79.7 % (40-80); RBC 4.82 10x6/uL (4.20-6.10); RDW 16.3 % (11.5-14.5); WBC 16.7 10x3/uL (4.8-10.8)
[2016-08-10 17:51] LABS: PLATELET COUNT 229 10x3/uL (130-400)
[2016-08-10 18:08] LABS: ALBUMIN 2.8 g/dL (3.4-5.0); ALKALINE PHOSPHATASE 92 U/L (46-116); ALT (SGPT) 9 U/L (10-68); BILIRUBIN - TOTAL 0.82 mg/dL (0.2-1.3); CALC OSMOLALITY 276 mosm/kg (275-300); CALCIUM 8.5 mg/dL (8.5-10.1); CARBON DIOXIDE 31.3 mmol/L (21.0-32.0); CHLORIDE - SERUM 98 mmol/L (98-107); CREATININE - SERUM 0.8 mg/dL (0.6-1.3); POTASSIUM - SERUM 3.1 mmol/L (3.5-5.1); PROTEIN - SERUM 6.8 g/dL (6.4-8.2); SODIUM 138 mmol/L (136-145); UREA NITROGEN 10 mg/dL (7-18); eGFR NON AFRICAN AMERICAN > 90 mL/min (90-120)
[2016-08-10 18:12] LABS: GLUCOSE 131 mg/dL (74-106)
[2016-08-10 20:24] VITALS: BP 157/55
[2016-08-10] MEDS ORDERED: LASIX40 MG PO (20:32)
[2016-08-10] MEDS ORDERED: TESSALON PERLE100 MG PO (20:33)
--- NOTE | 2016-08-10 23:17 | NUR ---
RESTING WITH EYES CLOSED, RESPERATIONS EVEN, NO S/S DISTRESS NOTED.
[2016-08-11] VITALS (7 sets, daily range): BP systolic 104–164; BP diastolic 46–72; Ht 188 cm; Wt 143.7 kg
--- NOTE | 2016-08-11 00:36 | NUR ---
SPOOLER AT BEDSIDE TO OBTAIN VITALS, CALL LIGHT IN REACH. WILL CONTINUE WITH PLAN OF CARE.
--- NOTE | 2016-08-11 03:40 | NUR ---
RESTING WITH EYES CLOSED, RESPERATIONS EVEN, NO S/S DISTRESS NOTED.
--- NOTE | 2016-08-11 06:44 | NUR ---
NOTIFIED BY MT THAT PTS HR IS ELEVATED, 171 ST, PT RESTING ON LEFT SIDE, NO S/S DISTRESS,NOTIFED BIANKA BOYLE APN TERRA COTTA ROOFER HELPER FOR DR ROCK. ORDERS GIVEN TO CONSULT CARDIOLOGY, NO NEED FOR IMEDIATE ACTION SINCE PT IS ASYMPTOMATIC.
--- NOTE | 2016-08-11 07:06 | NUR ---
SPOKE WITH DR ANAND, INFORMED HIM OF CONSULT AND OF PTS CHANGE IN HR. NO NEW ORDERS GIVEN AT THIS TIME, DR ANAND STATED THAT HE WILL BE HERE IN A FEW MINUTES AND WILL SEE PT THEN.
--- NOTE | 2016-08-11 07:31 | NUR ---
ASSESSMENT COMPLETED. PT IS SHORT OF BREATH AND ON O2 AT 4 L/M PER NC. TELEMERTY SHOWS SR 96. DENIES ANY NEEDS. CALL LIGHT IN REACH WITH SR UP
--- NOTE | 2016-08-11 07:41 | NUR ---
SITTING UP SOB WITH CALL LIGHT IN REACH. TELEMETRY SR. HR 99. RESP UL ON . BILAT LOWER EXTREMETY DRSGS CDI. WILL MONITOR NEEDS.
--- NOTE | 2016-08-11 15:21 | NUR ---
SCD'S ON BILATERAL LE
--- NOTE | 2016-08-11 18:58 | NUR ---
LYING QUIETLY. DENIES ANY NEEDS. CALL LIGHT IN REACH WITH SR . WILL MONITOR
--- NOTE | 2016-08-11 21:46 | NUR ---
PT GLUCOSE 327. PT REFUSES TO TAKE ANY S/S INSULIN. STATES THE ONLY INSULIN HE WILL TAKE IS 70/30 2 TIMES A DAY. PT ALSO REFUSES HIS BUMEX TONIGHT. REQUESTS TO HAVE TIMES CHANGED. SPOKE WITH JANUARY IN THE PHARMACY, RETIMING BUMEX TO 0600 AND 1800 FOR ALL FUTURE ADMINISTRATIONS.
[2016-08-12 01:06] VITALS: BP 119/51
[2016-08-12 05:24] VITALS: BP 114/76
[2016-08-12 05:40] LABS: BASOPHILS 0.3 % (0.0-2.0); EOSINOPHILS 1.5 % (0-7); HEMATOCRIT 39.9 % (42.0-54.0); HEMOGLOBIN 12.4 g/dL (13.5-17.5); IMMATURE GRANULOCYTES 0.3 % (0-5); LYMPHOCYTES 21.4 % (15-50); MCH 26.3 pg (26.0-34.0); MCHC 31.1 g/dL (31.0-37.0); MCV 84.7 fL (80.0-100.0); MEAN PLATELET VOLUME 11.1 fL (7.4-10.4); MONOCYTES 8.4 % (2-11); NEUTROPHILS 68.1 % (40-80); PLATELET COUNT 209 10x3/uL (130-400); RBC 4.71 10x6/uL (4.20-6.10); RDW 16.1 % (11.5-14.5)
[2016-08-12 05:41] LABS: WBC 10.6 10x3/uL (4.8-10.8)
[2016-08-12 06:02] LABS: ALBUMIN 2.7 g/dL (3.4-5.0); ALKALINE PHOSPHATASE 96 U/L (46-116); CHLORIDE - SERUM 98 mmol/L (98-107); CREATININE - SERUM 0.7 mg/dL (0.6-1.3); POTASSIUM - SERUM 3.5 mmol/L (3.5-5.1); PROTEIN - SERUM 6.8 g/dL (6.4-8.2); SODIUM 138 mmol/L (136-145); UREA NITROGEN 11 mg/dL (7-18); eGFR NON AFRICAN AMERICAN > 90 mL/min (90-120)
[2016-08-12 06:05] LABS: ALT (SGPT) 12 U/L (10-68); CALC OSMOLALITY 280 mosm/kg (275-300); GLUCOSE 203 mg/dL (74-106)
--- NOTE | 2016-08-12 07:26 | NUR ---
ASSESSMENT COMPLETED. AWAKE, ALERT. LEFT FA SL. TELEMERTY SHOWS SR. DENIES ANY NEEDS. CALL LIGHT IN REACH WITH CALL LIGHT IN REACH. SCDS IN USE
--- NOTE | 2016-08-12 10:47 | NUR ---
UP ON BEDSIDE. CALL LIGHT IN REACH WITH SR UP. DENIES ANY NEEDS
[2016-08-12 12:00] VITALS: BP 102/66
[2016-08-12 13:38] LABS: APPEARANCE CLEAR (CLEAR); BILIRUBIN NEGATIVE (NEGATIVE); COLOR YELLOW (YELLOW); GLUCOSE NEGATIVE (NEGATIVE); KETONE NEGATIVE (NEGATIVE); LEUKOCYTE ESTERASE TRACE (NEGATIVE); NITRITE NEGATIVE (NEGATIVE); PROTEIN NEGATIVE (NEGATIVE); SPECIFIC GRAVITY 1.015 (1.005-1.020); UROBILINOGEN NORMAL (NORMAL)
[2016-08-12 13:39] LABS: BACTERIA FEW /hpf (NONE SEEN); EPITHELIAL CELLS 0-5 /hpf (0-5); RED CELLS - URINE 0-5 /hpf (0-5); WHITE CELLS - URINE 0-5 /hpf (0-5)
[2016-08-12 16:00] VITALS: BP 95/65
--- NOTE | 2016-08-12 17:40 | NUR ---
DRSG TO LEFT FOOT CHANGED. DENIES ANY NEEDS. CALL LIGHT IN REACH WITH SR UP. WILL MONITOR
[2016-08-12 20:21] VITALS: BP 112/65
--- NOTE | 2016-08-12 20:56 | NUR ---
PT RESTING IN BED, ASKING FOR RT TO COME PLACE HIM ON BIPAP. PROVIDED HS MEDS TO PT BEFORE GOING ON BIPAP. SR PER TELEMETRY. O2 @ 4L/NC WHEN NOT ON BIPAP. SCDS/TEDS IN USE. FSBS 212, PT REFUSING INSULIN, STATES HE DOES NOT TAKE ANYTHING AFTER 4PM AND DOES NOT EVEN RECHECK HIS SUGAR UNTIL THE AM. SALINE LOCK TO LFA. SEE ASSESSMENT.
[2016-08-13 00:31] VITALS: BP 108/62
--- NOTE | 2016-08-13 02:03 | NUR ---
RESTING WITH NO DISTRESS. SKIN WARM/DRY. NONLABORED RESPIRATIONS. BED ALARM ACTIVATED. CALL LIGHT IN REACH.
[2016-08-13 04:03] VITALS: BP 101/58
[2016-08-13 06:42] LABS: BASOPHILS 0.2 % (0.0-2.0); EOSINOPHILS 1.1 % (0-7); HEMATOCRIT 38.8 % (42.0-54.0); HEMOGLOBIN 12.1 g/dL (13.5-17.5); IMMATURE GRANULOCYTES 0.3 % (0-5); LYMPHOCYTES 19.1 % (15-50); MCH 26.4 pg (26.0-34.0); MCHC 31.2 g/dL (31.0-37.0); MCV 84.7 fL (80.0-100.0); MEAN PLATELET VOLUME 10.8 fL (7.4-10.4); MONOCYTES 6.5 % (2-11); NEUTROPHILS 72.8 % (40-80); PLATELET COUNT 198 10x3/uL (130-400); RBC 4.58 10x6/uL (4.20-6.10); WBC 11.5 10x3/uL (4.8-10.8)
[2016-08-13 07:06] LABS: ALBUMIN 2.7 g/dL (3.4-5.0); ALKALINE PHOSPHATASE 97 U/L (46-116); BILIRUBIN - TOTAL 0.83 mg/dL (0.2-1.3); CALCIUM 8.6 mg/dL (8.5-10.1); CARBON DIOXIDE 35.7 mmol/L (21.0-32.0); CHLORIDE - SERUM 99 mmol/L (98-107); CREATININE - SERUM 0.7 mg/dL (0.6-1.3); POTASSIUM - SERUM 3.3 mmol/L (3.5-5.1); PROTEIN - SERUM 6.7 g/dL (6.4-8.2); SODIUM 136 mmol/L (136-145); UREA NITROGEN 12 mg/dL (7-18); eGFR NON AFRICAN AMERICAN > 90 mL/min (90-120)
[2016-08-13 07:09] LABS: ALT (SGPT) 16 U/L (10-68); CALC OSMOLALITY 273 mosm/kg (275-300); GLUCOSE 143 mg/dL (74-106)
--- NOTE | 2016-08-13 07:45 | NUR ---
PT IS ALERT. ASSESSMENT DONE PER FLOWSHEET. NO OTHER NEEDS AT THIS TIME. WILL CONTINUE TO MONITOR.
[2016-08-13 08:00] VITALS: BP 123/68
[2016-08-13 12:00] VITALS: BP 108/59
--- NOTE | 2016-08-13 13:18 | NUR ---
PT IS ALERT. NO SS OF DISTRESS WIULL CONTINUE TO MONITOR.
[2016-08-13 16:00] VITALS: BP 137/74
[2016-08-13 20:38] VITALS: BP 131/79
[2016-08-14 00:11] VITALS: BP 104/59
[2016-08-14 04:40] VITALS: BP 112/74
--- NOTE | 2016-08-14 06:30 | NUR ---
GLUCOSE 81 - PT REFUSES ANY /30 THIS AM.
[2016-08-14 06:40] LABS: BASOPHILS 0.2 % (0.0-2.0); EOSINOPHILS 1.3 % (0-7); HEMOGLOBIN 12.5 g/dL (13.5-17.5); IMMATURE GRANULOCYTES 0.3 % (0-5); LYMPHOCYTES 17.2 % (15-50); MCHC 30.5 g/dL (31.0-37.0); MCV 85.2 fL (80.0-100.0); MEAN PLATELET VOLUME 11.1 fL (7.4-10.4); MONOCYTES 7.3 % (2-11); NEUTROPHILS 73.7 % (40-80); PLATELET COUNT 217 10x3/uL (130-400); RBC 4.81 10x6/uL (4.20-6.10); RDW 16.1 % (11.5-14.5); WBC 11.4 10x3/uL (4.8-10.8)
[2016-08-14 06:59] LABS: ALBUMIN 2.9 g/dL (3.4-5.0); ALKALINE PHOSPHATASE 101 U/L (46-116); ALT (SGPT) 14 U/L (10-68); BILIRUBIN - TOTAL 0.96 mg/dL (0.2-1.3); CALC OSMOLALITY 276 mosm/kg (275-300); CALCIUM 8.8 mg/dL (8.5-10.1); CARBON DIOXIDE 37.8 mmol/L (21.0-32.0); CHLORIDE - SERUM 100 mmol/L (98-107); CREATININE - SERUM 0.7 mg/dL (0.6-1.3); GLUCOSE 75 mg/dL (74-106); POTASSIUM - SERUM 3.6 mmol/L (3.5-5.1); SODIUM 140 mmol/L (136-145); UREA NITROGEN 9 mg/dL (7-18); eGFR NON AFRICAN AMERICAN > 90 mL/min (90-120)
--- NOTE | 2016-08-14 07:32 | NUR ---
PT IS ALERT. ASSESSMENT DONE PER FLOWSHET. NO OTHER NEEDS AT THIS TIME. WILL CONTINUE TO MONITOR.
[2016-08-14 08:00] VITALS: BP 105/53
[2016-08-14 12:00] VITALS: BP 137/77
[2016-08-14] MEDS ORDERED: BETAPACE 80 MG80 MG PO (14:47)
== END 2016-08-14 15:09 | disposition home or self-care (01) | DRG 292 ==
LOC: OBSVTIME → D.ER 16:34 → OBSVTIME 18:44 → D.M2 18:44 → D.ER 19:05 → D.M2 19:05 → OBSVTIME 19:05 → D.M2 08-11 13:54 → OBSVTIME 08-11 13:54 → D.M2 08-12 16:21
PROVIDERS: Emergency Medicine; ADMIT Family Medicine
DX: I11.0 Hypertensive heart disease with heart failure (principal); I48.92 Unspecified atrial flutter; F17.203 Nicotine dependence unspecified, with withdrawal; I50.31 Acute diastolic (congestive) heart failure; J44.9 Chronic obstructive pulmonary disease, unspecified; G47.33 Obstructive sleep apnea (adult) (pediatric); E11.9 Type 2 diabetes mellitus without complications; Z86.718 Personal history of other venous thrombosis and embolism

== ENCOUNTER 2016-10-02 17:25 | Inpatient (IN) | payer MEDICAID ==
[~2016-10-02] VITALS: Ht 188 cm; Wt 138.0 kg
[~2016-10-02 17:25] MED LIST changes: +BETAPACE 80 MG80 MG PO; +LASIX40 MG PO; +TESSALON PERLE100 MG PO
[2016-10-02 18:07] LABS: BASOPHILS 0.2 % (0-2); EOSINOPHILS 2.2 % (0-7); HEMOGLOBIN 13.2 g/dL (13.5-17.5); IMMATURE GRANULOCYTES 0.3 % (0-5); LYMPHOCYTES 14.2 % (15-50); MCH 27.4 pg (26.0-34.0); MCHC 32.2 g/dL (31.0-37.0); MCV 85.1 fL (80.0-100.0); MEAN PLATELET VOLUME 10.8 fL (7.4-10.4); MONOCYTES 6.4 % (2-11); NEUTROPHILS 76.7 % (40-80); PLATELET COUNT 206 10x3/uL (130-400); RBC 4.82 10x6/uL (4.20-6.10); RDW 17.1 % (11.5-14.5); WBC 11.9 10x3/uL (4.8-10.8)
[2016-10-02 18:25] LABS: ALKALINE PHOSPHATASE 104 U/L (46-116); ALT (SGPT) 8 U/L (10-68); BILIRUBIN - TOTAL 0.93 mg/dL (0.2-1.3); CALC OSMOLALITY 273 mosm/kg (275-300); CALCIUM 8.8 mg/dL (8.5-10.1); CARBON DIOXIDE 33.4 mmol/L (21.0-32.0); CHLORIDE - SERUM 95 mmol/L (98-107); CREATININE - SERUM 0.8 mg/dL (0.6-1.3); POTASSIUM - SERUM 3.4 mmol/L (3.5-5.1); PROTEIN - SERUM 7.4 g/dL (6.4-8.2); SODIUM 135 mmol/L (136-145); UREA NITROGEN 10 mg/dL (7-18); eGFR NON AFRICAN AMERICAN > 90 mL/min (90-120)
[2016-10-02 18:30] LABS: GLUCOSE 192 mg/dL (74-106)
[2016-10-02 18:36] LABS: CKMB 0.7 U/L (0.0-3.6); CREATINE KINASE 55 UL (21-232); PRO BNP 1343 pg/mL (0-125)
[2016-10-02 18:39] LABS: TROPONIN-I < 0.017 ng/mL (0.000-0.060)
--- NOTE | 2016-10-02 19:50 | NUR ---
REPORT RECEIVED FROM PETTY JUAREZ.
[2016-10-02 20:00] VITALS: BP 139/59
--- NOTE | 2016-10-02 20:18 | NUR ---
ARRIVED TO FLOOR VIA WHEELCHAIR, ACCOMPANIED BY HOSPITAL STAFF AND FAMILY. ORIENTED TO FLOOR AND PLACED ON TELEMETRY. 4LPM VIA PA. CALL LIGHT IN REACH. WILL CONTINUE TO MONITOR. SEE NURSE ASSESSMENT.
--- NOTE | 2016-10-02 21:08 | NUR ---
16 KAZAKH VERGARA INSERTED, 800CC OF CLEAR YELLOW URINE. STERILE TECHNIQUE USED. CALL LIGHT IN REACH. WILL CONTINUE TO MONITOR.
[2016-10-02] MEDS ORDERED: FUROSEMIDE40 MG PO (22:39)
[2016-10-02 22:46] VITALS: BP 139/59; BMI 39.0
[2016-10-03] VITALS (7 sets, daily range): BP systolic 100–124; BP diastolic 49–63; Ht 188 cm; Wt 138.0 kg
--- NOTE | 2016-10-03 02:13 | NUR ---
LYING IN BED WITH EYES CLOSED, CALL LIGHT IN REACH. WILL CONTINUE TO MONITOR.
[2016-10-03 05:43] LABS: BASOPHILS 0 % (0-2); EOSINOPHILS 0 % (0-7); HEMATOCRIT 40.9 % (42.0-54.0); HEMOGLOBIN 13.1 g/dL (13.5-17.5); IMMATURE GRANULOCYTES 0.3 % (0-5); LYMPHOCYTES 7.7 % (15-50); MCH 27.2 pg (26.0-34.0); MEAN PLATELET VOLUME 11.3 fL (7.4-10.4); MONOCYTES 0.8 % (2-11); NEUTROPHILS 91.2 % (40-80); PLATELET COUNT 217 10x3/uL (130-400); RBC 4.81 10x6/uL (4.20-6.10)
[2016-10-03 06:08] LABS: WBC 6.6 10x3/uL (4.8-10.8)
[2016-10-03 06:32] LABS: ANION GAP 5.3 mmol/L (8-16); CALCIUM 7.8 mg/dL (8.5-10.1); CARBON DIOXIDE 39.1 mmol/L (21.0-32.0); CREATININE - SERUM 1.3 mg/dL (0.6-1.3); POTASSIUM - SERUM 3.4 mmol/L (3.5-5.1)
--- NOTE | 2016-10-03 07:41 | NUR ---
ASSESSMENT DONE. DENIES NEEDS.
--- NOTE | 2016-10-03 07:57 | NUR ---
RESTS IN BED WITH CALL LIGHT IN REACH. RESP UL ON 02 2L NC. NO NEEDS VOICED AT THIS TIME. WILL MONITOR.
--- NOTE | 2016-10-03 18:15 | NUR ---
WITHOUT CHANGES OR DISTRESS NOTED AT THIS TIME.
--- NOTE | 2016-10-03 20:18 | NUR ---
PT RECEIVED LYING IN BED WATCHING TV AT THIS TIME. AAOX3. S/L NOTED TO LEFT HAND AT THIS TIME. ASSESSMENT COMPLETED PER FLOW SHEET. ADMINISTERED BUMEX IVP AT THIS TIME. PT REQUESTS SANDWICH TRAY, CUP OF ICE, AND BLANKET AT THIS TIME. PT DENIES OTHER NEEDS. BED LOW. PHONE AND CALL LIGHT IN REACH. SRX2.
--- NOTE | 2016-10-03 22:00 | NUR ---
PM MEDS GIVEN AT THIS TIME. 8 UNITS HUMALOG GIVEN TO RIGHT ARM AT THIS TIME FOR FSBS OF 239. PT DENIES NEEDS. BED LOW. PHONE AND CALL LIGHT IN REACH. SRX2.
--- NOTE | 2016-10-04 00:30 | NUR ---
PT RESTING QUIETLY AT THIS TIME WITH EYES CLOSED. RESPIRATIONS EVEN, NON-LABORED. NO ACUTE DISTRESS NOTED AT THIS TIME. BED LOW. PHONE AND CALL LIGHT IN REACH. SRX2.
[2016-10-04 04:01] VITALS: BP 118/59
--- NOTE | 2016-10-04 05:29 | NUR ---
ADMINISTERED SOLU-MEDROL IVP AND PROTONIX PO PER ORDERS AT THIS TIME. PT DENIES NEEDS. BED LOW. PHONE AND CALL LIGHT IN REACH. SRX2.
[2016-10-04 06:02] LABS: BASOPHILS 0 % (0-2); EOSINOPHILS 0 % (0-7); HEMATOCRIT 39.4 % (42.0-54.0); HEMOGLOBIN 12.5 g/dL (13.5-17.5); IMMATURE GRANULOCYTES 0.2 % (0-5); LYMPHOCYTES 9.7 % (15-50); MCH 27.4 pg (26.0-34.0); MCHC 31.7 g/dL (31.0-37.0); MCV 86.2 fL (80.0-100.0); MEAN PLATELET VOLUME 11.6 fL (7.4-10.4); MONOCYTES 3.6 % (2-11); NEUTROPHILS 86.5 % (40-80); PLATELET COUNT 204 10x3/uL (130-400); RBC 4.57 10x6/uL (4.20-6.10); RDW 17.2 % (11.5-14.5)
[2016-10-04 06:14] LABS: WBC 8.9 10x3/uL (4.8-10.8)
[2016-10-04 06:19] LABS: CALC OSMOLALITY 285 mosm/kg (275-300); CALCIUM 8.7 mg/dL (8.5-10.1); CARBON DIOXIDE 35.3 mmol/L (21.0-32.0); CHLORIDE - SERUM 97 mmol/L (98-107); GLUCOSE 344 mg/dL (74-106); POTASSIUM - SERUM 4.5 mmol/L (3.5-5.1); SODIUM 135 mmol/L (136-145); UREA NITROGEN 17 mg/dL (7-18); eGFR NON AFRICAN AMERICAN 81 mL/min (90-120)
--- NOTE | 2016-10-04 08:15 | NUR ---
AWAKE SITTING UP FOR BREAKFAST. SKIN TEAR NOTED ON L FOREARM. SOME BLEEDING NOTED. TEAGDERM ON.
[2016-10-04 08:26] VITALS: BP 135/81
[2016-10-04 11:15] VITALS: BP 101/61
--- NOTE | 2016-10-04 13:00 | NUR ---
PT REFUSED NICOTENE PATCH
[2016-10-04 15:44] VITALS: BP 110/62
--- NOTE | 2016-10-04 18:28 | NUR ---
THIS SHIFT PT HAS BEEN UP IN CHAIR FOR MEALS. PT WEARS HIS OWN [facility].
--- NOTE | 2016-10-04 19:00 | NUR ---
INITIAL ROUNDS MADE. PT SITTING UP IN BED WATCHING TV. NO NEEDS OR C/O AT THIS TIME. CALL LIGHT IN REACH. WILL CONT TO MONITOR.
[2016-10-04 20:19] VITALS: BP 125/75
[2016-10-05 00:41] VITALS: BP 95/58
[2016-10-05 04:23] VITALS: BP 94/44
[2016-10-05 05:51] LABS: BASOPHILS 0 % (0-2); EOSINOPHILS 0 % (0-7); HEMOGLOBIN 12.9 g/dL (13.5-17.5); IMMATURE GRANULOCYTES 0.2 % (0-5); LYMPHOCYTES 11.5 % (15-50); MCH 26.8 pg (26.0-34.0); MCHC 31.5 g/dL (31.0-37.0); MCV 85.1 fL (80.0-100.0); MEAN PLATELET VOLUME 11.1 fL (7.4-10.4); MONOCYTES 3.6 % (2-11); NEUTROPHILS 84.7 % (40-80); PLATELET COUNT 202 10x3/uL (130-400); RBC 4.82 10x6/uL (4.20-6.10); RDW 16.8 % (11.5-14.5); WBC 10.9 10x3/uL (4.8-10.8)
[2016-10-05 06:07] LABS: CALC OSMOLALITY 278 mosm/kg (275-300); CALCIUM 8.9 mg/dL (8.5-10.1); CHLORIDE - SERUM 99 mmol/L (98-107); CREATININE - SERUM 0.8 mg/dL (0.6-1.3); POTASSIUM - SERUM 4.3 mmol/L (3.5-5.1); SODIUM 138 mmol/L (136-145); UREA NITROGEN 17 mg/dL (7-18); eGFR NON AFRICAN AMERICAN > 90 mL/min (90-120)
[2016-10-05 06:08] LABS: GLUCOSE 110 mg/dL (74-106)
[2016-10-05 08:14] VITALS: BP 127/74
--- NOTE | 2016-10-05 10:23 | NUR ---
Patient Name: YAZAN ANAYA Admission Status: ER Accout number: [id number] Admission Date: 10-02-2016 : 1955 Admission Diagnosis: Attending: MEGHA Current LOS: 3 Anticipated DC Date: 10-05-2016 Planned Disposition: Home with Home Health Primary Insurance: MEDICAID [place] Discharge Planning Comments: CM Note: CM met with patient to assess discharge planning/needs. Patient states that his discharge plan is to return home where he lives alone. He states that his home environment is safe where he has a ramp and an electric wheelchair. Patient states that he already has [facility] who comes out 5 days a week to help him with his cooking, bathing, cleaning, and medications, and he is happy with them. He has a CPAP, Electric Wheelchair, Glucometer, and Home O2. He gets his O[facility] from [facility]. Patient denies any CM needs at this time. He stated that he as a friend (Jeromy Mohamud, ) who comes over daily to help him do his feet dressing. His cousin Ernestine Schwab ([phone]) will be driving him home, and another cousin Jeffry Hand who live in who could come and help him if needed. CM will continue to follow and assist as needed with discharge planning/needs. PCP: [facility]: [facility] Ernestine Shcwab(cousin) [phone] Jeffry Hand (cousin) [phone] Jeromy Levine (friend) [phone] [employer] Solder Leveler: Archana Chen * Is the patient Alert and Oriented? Yes 0 * How many steps to enter\exit or inside your home? 0 0 * PCP [facility] 0 * Pharmacy [facility] 0 * Preadmission Environment Home Alone 0 * ADLs Partial Dependent 0 * Partial ADLs (Assistance needed) Bathing Dressing Eating Medication Management Toileting 0 * Equipment CPAP Glucometer Wheelchair 0 * List name and contact numbers for known caregivers / representatives who currently or will assist patient after discharge: Jeromy Graves (friend) [phone] Ernestine Schwab (cousin) [phone] Jeffry Hand (cousin) [phone] 0 * Community resources currently utilized Home Health 0 * Please name any agencies selected above. [facility] 0 * Additional services required to return to the preadmission environment? No 0 * Can the patient safely return to the preadmission environment? Yes 0 * Has this patient been hospitalized within the prior 30 days at any hospital? No 0 Grand Total: 0
[2016-10-05 11:49] VITALS: BP 105/70
--- NOTE | 2016-10-05 13:15 | NUR ---
THIS AM PATIENT HAS AMBULATED WITH PT AROUND THE WHOLE UNIT. PATIENT SAYS HE IS TIRED AFTERWARDS. PT REFUSED TO TAKE AM 69 UNITS OF INSULIN DUE TO BS BEING 110. PT HAD A BM AND WAS BATHED WITH LINENS CHANGED. SEE ASSESSMENT FOR FURTHER EVAL
[2016-10-05] MEDS ORDERED: PREDNISONE10 MG PO (13:44)
[2016-10-05 15:51] VITALS: BP 110/66
--- NOTE | 2016-10-05 16:18 | NUR ---
ORDER RECEIVED FOR DISCHARGE AND VERGARA REMOVED. VERGARA REMOVED WITH 10CC DEFLATED. TIP IN PLACE. IV DC ALSO WITH TIP IN PLACED. DC INSTRUCTIONS GIVEN TO PT AND .
--- NOTE | 2016-10-05 16:24 | NUR ---
TO CAR VIA
== END 2016-10-05 16:25 | disposition home health service (06) | DRG 292 ==
LOC: D.ER 17:25 → D.M2 18:11
PROVIDERS: Emergency Medicine; ADMIT Family Medicine
PROC: 0T9B70Z Drainage of Bladder with Drainage Device, Via Natural or Artificial Opening (ICD-10-PCS; principal; 2016-10-03)
DX: I11.0 Hypertensive heart disease with heart failure (principal); F17.203 Nicotine dependence unspecified, with withdrawal; I50.31 Acute diastolic (congestive) heart failure; J44.9 Chronic obstructive pulmonary disease, unspecified; E11.9 Type 2 diabetes mellitus without complications; G47.33 Obstructive sleep apnea (adult) (pediatric); E87.6 Hypokalemia; Z99.81 Dependence on supplemental oxygen; Z91.19 Patient's noncompliance with other medical treatment and regimen; Z86.718 Personal history of other venous thrombosis and embolism; I48.2 Chronic atrial fibrillation

== ENCOUNTER → 2016-10-24 12:20 | Outpatient (CLI) | payer MEDICAID ==
[2016-10-03 12:31] VITALS: BMI 38.9
[~2016-10-24 12:20] MED LIST changes: +PREDNISONE10 MG PO
== END | disposition home or self-care (01) ==
LOC: D.RAD 11:00
DX: R93.8 Abnormal findings on diagnostic imaging of other specified body structures (principal)

== ENCOUNTER 2016-11-24 17:50 | Inpatient (IN) | payer MEDICAID ==
[~2016-11-24] VITALS: Ht 188 cm; Wt 139.8 kg
[2016-11-24 18:31] LABS: BASOPHILS 0.1 % (0-2); EOSINOPHILS 0 % (0-7); HEMATOCRIT 39.7 % (42.0-54.0); IMMATURE GRANULOCYTES 0.3 % (0-5); MCHC 32.7 g/dL (31.0-37.0); MCV 85.4 fL (80.0-100.0); MEAN PLATELET VOLUME 10.5 fL (7.4-10.4); MONOCYTES 3.2 % (2-11); NEUTROPHILS 90.4 % (40-80); PLATELET COUNT 171 10x3/uL (130-400); RBC 4.65 10x6/uL (4.20-6.10); RDW 16.2 % (11.5-14.5); WBC 16.2 10x3/uL (4.8-10.8)
[2016-11-24 18:47] LABS: ALKALINE PHOSPHATASE 84 U/L (46-116); ALT (SGPT) 11 U/L (10-68); BILIRUBIN - TOTAL 1.53 mg/dL (0.2-1.3); CALC OSMOLALITY 279 mosm/kg (275-300); CALCIUM 9.2 mg/dL (8.5-10.1); CARBON DIOXIDE 31.3 mmol/L (21.0-32.0); CHLORIDE - SERUM 99 mmol/L (98-107); GLUCOSE 145 mg/dL (74-106); POTASSIUM - SERUM 3.5 mmol/L (3.5-5.1); PROTEIN - SERUM 7.3 g/dL (6.4-8.2); SODIUM 139 mmol/L (136-145); UREA NITROGEN 9 mg/dL (7-18); eGFR NON AFRICAN AMERICAN 80 mL/min (90-120)
[2016-11-24 19:30] LABS: PRO BNP 5317 pg/mL (0-125)
[2016-11-24 19:40] LABS: TROPONIN-I < 0.017 ng/mL (0.000-0.060)
[2016-11-24 21:17] LABS: APPEARANCE CLEAR (CLEAR); BILIRUBIN NEGATIVE (NEGATIVE); COLOR YELLOW (YELLOW); GLUCOSE NEGATIVE (NEGATIVE); KETONE MODERATE mg/dL (NEGATIVE); LEUKOCYTE ESTERASE 1+ (NEGATIVE); NITRITE NEGATIVE (NEGATIVE); PROTEIN NEGATIVE (NEGATIVE); UROBILINOGEN NORMAL (NORMAL)
[2016-11-24 21:40] LABS: RED CELLS - URINE NONE SEEN /hpf (0-5)
--- NOTE | 2016-11-24 22:40 | NUR ---
PT ARRIVES TO FLOOR VIA BED FROM ER ACCOMPANIED BY SENIOR BIOINFORMATICS SCIENTIST. ASSISTED INTO ROOM. O2 @ 5LPM NC, SATS LOW 90'S. PT STATES NORMALLY WEARING HOME O2 @ 2LPM NC. PLACED ON TELE, NSR ON MONITOR HR 80'S. FEET WITH DRESSINGS, PT STATES HAVING WOUNDS AND HAVING HOME HEALTH COMING OUT TO CHANGE DRESSINGS. UNIT ROUTINES AND PROTOCOLS DISCUSSED WITH PT, VERBALIZES UNDERSTANDING. NO OTHER NEEDS VOICED. WILL CONT TO MONITOR.
[2016-11-24 22:49] VITALS: BMI 39.9
[2016-11-24 23:32] VITALS: BP 133/68; BP 81/46
[2016-11-25 00:14] LABS: CKMB 1.3 U/L (0.0-3.6)
[2016-11-25 00:15] LABS: CREATINE KINASE 1151 UL (21-232); TROPONIN-I < 0.017 ng/mL (0.000-0.060)
--- NOTE | 2016-11-25 02:55 | NUR ---
PT RESTING SOUNDLY WITHOUT C/O OR DISTRESS NOTED. WILL MONITOR.
[2016-11-25 04:00] VITALS: BP 105/68
[2016-11-25 05:59] LABS: CKMB 1.1 U/L (0.0-3.6); CREATINE KINASE 927 UL (21-232); TROPONIN-I < 0.017 ng/mL (0.000-0.060)
--- NOTE | 2016-11-25 08:00 | NUR ---
PT IS RESTING IN BED WITH EYES CLOSED. AWOKE EASILY TO VERBAL STIMULI. DENIES ACUTE PAIN OR DISCOMFORT. O2 IS ON @ 5LPM PER NC. PT SOB WITH EXHERTION. EXP RALES NOTED IN ALL LOBES. VERGARA CATH IS PATENT AND DRAINING TO A GRAVITY BAG. TELEMETRY IS ON AND INTACT. SR'S ARE UP X 3 IN BED. CALL LIGHT AND BEDSIDE TABLE ARE WITHIN EASY REACH.
--- NOTE | 2016-11-25 08:04 | NUR ---
RESTS IN BED EATING BRK. RESP UL ON . CALL LIGHT IN REACH. WILL GUSTAVO NEEDS.
[2016-11-25 08:36] VITALS: BP 99/46
--- NOTE | 2016-11-25 10:14 | NUR ---
PT IS RESTING IN BED TALKING ON HIS CELL PHONE. NO ACUTE DISTRESS NOTED.
--- NOTE | 2016-11-25 11:55 | NUR ---
PT IS RESTING IN BED WITH EYES CLOSED. NO ACUTE DISTRESS NOTED.
[2016-11-25 12:32] LABS: CKMB 1.3 U/L (0.0-3.6); CREATINE KINASE 740 UL (21-232); TROPONIN-I < 0.017 ng/mL (0.000-0.060)
[2016-11-25 12:55] VITALS: BP 104/57
[2016-11-25 13:23] VITALS: Ht 188 cm; Wt 139.8 kg
--- NOTE | 2016-11-25 15:46 | NUR ---
PT IS RESTING IN BED WATCHING TV. NO ACUTE DISTRESS NOTED. BED BATH GIVEN BY PONDMAN.
[2016-11-25 17:41] VITALS: BP 122/68
--- NOTE | 2016-11-25 18:31 | NUR ---
IV IN RIGHT WRIST INFILTRATED. IV DC'D AND BANDAID APPLIED TO SITE. IV RESITED TO LEFT AC BY MALATHI JUAREZ. IV ABX RESTARTED.
--- NOTE | 2016-11-25 19:20 | NUR ---
PT. IN BED WITH HOB UP FOR COMFORT WATCHING TV. NO VOICED NEEDS AT THIS TIME. ASSESSMENT COMPLETED. CALL LIGHT WITHIN REACH.
[2016-11-25 20:00] VITALS: BP 122/71
--- NOTE | 2016-11-25 23:30 | NUR ---
PT. IN BED WITH HOB UP FOR COMFORT AND CONTINUES TO WATCH TV. NO VOICED NEEDS AT THIS TIME. VERGARA TO BSD WITHOUT PROBLEMS. CALL LIGHT WITHIN REACH.
[2016-11-26] VITALS: BP 109/52
--- NOTE | 2016-11-26 03:15 | NUR ---
PT. IN BED WITH HOB UP FOR COMFORT WITH EYES CLOSED AND RESP. EVEN. CALL LIGHT WITHIN REACH. JAI TO BDS WITHOUT ANY PROBLEMS.
[2016-11-26 05:08] LABS: BASOPHILS 0 % (0-2); EOSINOPHILS 0 % (0-7); HEMATOCRIT 39.2 % (42.0-54.0); HEMOGLOBIN 12.8 g/dL (13.5-17.5); IMMATURE GRANULOCYTES 0.4 % (0-5); LYMPHOCYTES 7.2 % (15-50); MCH 27.8 pg (26.0-34.0); MCHC 32.7 g/dL (31.0-37.0); MCV 85.2 fL (80.0-100.0); MEAN PLATELET VOLUME 11.7 fL (7.4-10.4); NEUTROPHILS 85.4 % (40-80); PLATELET COUNT 180 10x3/uL (130-400); RDW 15.9 % (11.5-14.5)
--- NOTE | 2016-11-26 05:46 | NUR ---
PT. IN BED WITH HOB UP FOR COMFORT SLEEPING ON HIS RIGHT SIDE. EYES CLOSED AND RESP. EVEN. VERGARA TO BSD WITHOUT ANY PROBLEMS. PT. AWAKENS EASILY FOR MORNING MEDS/INSULIN ADMIN. NO VOICED NEEDS AT THIS TIME AND HIS CALL LIGHT IS WITHIN REACH.
[2016-11-26 05:55] LABS: ALBUMIN 2.8 g/dL (3.4-5.0); ALKALINE PHOSPHATASE 82 U/L (46-116); ALT (SGPT) 12 U/L (10-68); BILIRUBIN - TOTAL 0.54 mg/dL (0.2-1.3); CALCIUM 9.1 mg/dL (8.5-10.1); CHLORIDE - SERUM 101 mmol/L (98-107); PROTEIN - SERUM 7.1 g/dL (6.4-8.2); SODIUM 139 mmol/L (136-145); eGFR NON AFRICAN AMERICAN 80 mL/min (90-120)
[2016-11-26 05:58] LABS: CALC OSMOLALITY 291 mosm/kg (275-300); CKMB 1.3 U/L (0.0-3.6); CREATINE KINASE 392 UL (21-232); GLUCOSE 284 mg/dL (74-106); POTASSIUM - SERUM 4.3 mmol/L (3.5-5.1); UREA NITROGEN 25 mg/dL (7-18)
--- NOTE | 2016-11-26 07:57 | NUR ---
ASSESSMENT COMPLETED.TELEMENTRY SHOWS NSR AT 66. O2 AT 5 L/M PER NC. LEFT FOREARM SL. DRSG TO LEFT FOOT AND RIGHT HINES DRY AND INTACT. DENIES ANY NEEDS. SR UP WITH CALL LIGHT IN REACH. VERGARA CATH PATENTD TO BEDSIDE GRAVITY BAG. WILL MONITOR
[2016-11-26 08:00] VITALS: BP 111/68
[2016-11-26 12:00] VITALS: BP 112/74
--- NOTE | 2016-11-26 13:23 | NUR ---
EYES CLOSED WITH RESPRIATION EVEN AND NON LABORED. TELEMERTY SHOWS SR.
--- NOTE | 2016-11-26 15:36 | NUR ---
IV RESTARTED IN RIGHT WRIST WITH A 22 ЕЛЕНА CATHERER TIMES ONE STICK. OLD IV IN LEFT ARM REMOVED. DENIES ANY NEEDS. CALL LIGHT IN REACH WITH SR UP
[2016-11-26 16:00] VITALS: BP 102/63
--- NOTE | 2016-11-26 17:48 | NUR ---
LYING QUIETLY. DENIES ANY NEEDS. CALL LIGHT IN REACH WITH SR UP. TELEMERTY SHOWS NSR.WILL MONITOR
--- NOTE | 2016-11-26 18:30 | NUR ---
LYING QUIETLY WITH EYES CLOSED. NO DISTRESS NOTED. SR UP WITH CALL LIGHT IN REACH. WILL MONITOR
[2016-11-26 20:00] VITALS: BP 105/70
--- NOTE | 2016-11-26 22:04 | NUR ---
REC'D LYING IN BED. ALERT AND ORIENTED X4. DENIED PAIN AT THIS TIME. NO DISTRESS NOTED. DENIED FURTHER NEEDS AT THIS TIME. WILL ADMIN PM/AM MEDS PRESCRIBED. INSTRUCTED TO CALL IF NEEDED ANYTHING. VERBALIZED UNDERSTANDING. WILL CONT TO MONITOR. BED LOW, LOCKED, CALL LIGHT IN REACH.
[2016-11-27 04:00] VITALS: BP 94/61
--- NOTE | 2016-11-27 05:56 | NUR ---
RESTING IN BED. NO DISTRESS NOTED. DENIED PAIN AND FURTHER NEEDS AT THIS TIME. BLD SUGAR WAS 186. ADMIN AM MEDS PRESCRIBED. INSTRUCTED TO CALL IF NEEDED ANYTHING. VERBALIZED UNDERSTANDING. BED LOW, LOCKED, CALL LIGHT IN REACH.
[2016-11-27 06:48] LABS: BASOPHILS 0.1 % (0-2); EOSINOPHILS 0 % (0-7); HEMATOCRIT 41.1 % (42.0-54.0); HEMOGLOBIN 13.2 g/dL (13.5-17.5); IMMATURE GRANULOCYTES 0.5 % (0-5); LYMPHOCYTES 12.4 % (15-50); MCH 27.5 pg (26.0-34.0); MCHC 32.1 g/dL (31.0-37.0); MCV 85.6 fL (80.0-100.0); MEAN PLATELET VOLUME 12.1 fL (7.4-10.4); MONOCYTES 7.9 % (2-11); NEUTROPHILS 79.1 % (40-80); PLATELET COUNT 171 10x3/uL (130-400); RDW 15.8 % (11.5-14.5); WBC 11.3 10x3/uL (4.8-10.8)
[2016-11-27 07:05] LABS: ALBUMIN 2.7 g/dL (3.4-5.0); ALKALINE PHOSPHATASE 76 U/L (46-116); ALT (SGPT) 13 U/L (10-68); BILIRUBIN - TOTAL 0.53 mg/dL (0.2-1.3); CALCIUM 8.7 mg/dL (8.5-10.1); CARBON DIOXIDE 32.2 mmol/L (21.0-32.0); CHLORIDE - SERUM 99 mmol/L (98-107); CREATINE KINASE 156 UL (21-232); PROTEIN - SERUM 6.8 g/dL (6.4-8.2); SODIUM 140 mmol/L (136-145); UREA NITROGEN 24 mg/dL (7-18); eGFR NON AFRICAN AMERICAN 80 mL/min (90-120)
[2016-11-27 07:12] LABS: CALC OSMOLALITY 288 mosm/kg (275-300); GLUCOSE 199 mg/dL (74-106)
--- NOTE | 2016-11-27 07:48 | NUR ---
ASSESSMENT COMPLETED. DENIES ANY NEEDS. 02 AT 5 L/M PER NC. SL TO RIGHT WRIST. TELEMERTY SHOWS SR. VERGARA CATH PATENT TO BEDSIDE GRAVITY BAG. DRSG TO BOTH LGD DRY AND INTACT. SR UP WITH CALL LIGHT IN REACH
[2016-11-27 08:38] VITALS: BP 124/70
[2016-11-27 12:36] VITALS: BP 106/65
[2016-11-27 16:23] VITALS: BP 96/66
[2016-11-27 20:00] VITALS: BP 121/69
--- NOTE | 2016-11-27 20:00 | NUR ---
RESTING IN BED WITH NO DISTRESS. IV LEVAQUIN COMPLETING TO PIV IN R WRIST. O2 @ 5L/NC WITH RESPS EVEN/NONLABORED. SEE ASSESSMENT. MONITOR AND CPOC.
--- NOTE | 2016-11-27 21:52 | NUR ---
HS MEDS GIVEN. IV ABT ROCEPHIN INFUSED. IV SOLUMEDROL AND IV LASIX GIVEN. PT WITH VERGARA PATENT TO BEDSIDE DRAIN BAG. CPOC.
[2016-11-28 04:00] VITALS: BP 124/66
[2016-11-28 06:51] LABS: BASOPHILS 0.1 % (0-2); EOSINOPHILS 0 % (0-7); HEMATOCRIT 43.3 % (42.0-54.0); HEMOGLOBIN 13.8 g/dL (13.5-17.5); IMMATURE GRANULOCYTES 0.5 % (0-5); LYMPHOCYTES 14.5 % (15-50); MCH 27.5 pg (26.0-34.0); MCHC 31.9 g/dL (31.0-37.0); MCV 86.4 fL (80.0-100.0); MEAN PLATELET VOLUME 12.2 fL (7.4-10.4); MONOCYTES 5.8 % (2-11); NEUTROPHILS 79.1 % (40-80); PLATELET COUNT 178 10x3/uL (130-400); RBC 5.01 10x6/uL (4.20-6.10); RDW 15.7 % (11.5-14.5); WBC 9.1 10x3/uL (4.8-10.8)
[2016-11-28 07:15] LABS: ALBUMIN 2.7 g/dL (3.4-5.0); ALKALINE PHOSPHATASE 68 U/L (46-116); ALT (SGPT) 15 U/L (10-68); CALC OSMOLALITY 290 mosm/kg (275-300); CALCIUM 8.5 mg/dL (8.5-10.1); CARBON DIOXIDE 32.3 mmol/L (21.0-32.0); CHLORIDE - SERUM 100 mmol/L (98-107); CREATINE KINASE 98 UL (21-232); CREATININE - SERUM 0.8 mg/dL (0.6-1.3); POTASSIUM - SERUM 4.2 mmol/L (3.5-5.1); PROTEIN - SERUM 6.6 g/dL (6.4-8.2); SODIUM 138 mmol/L (136-145); UREA NITROGEN 24 mg/dL (7-18); eGFR NON AFRICAN AMERICAN > 90 mL/min (90-120)
[2016-11-28 07:17] LABS: GLUCOSE 305 mg/dL (74-106)
--- NOTE | 2016-11-28 07:30 | NUR ---
AM ROUNDS- PT IN BED, DNEIES ANY NEEDS AT THIS TIME. BED LOW AND WHEELS LOCKED, CALL LIGHT IN REACH, RT WRIST IV SL, O2 5L NC. NAD NOTED, WILL CONTINUE TO MONITOR.
[2016-11-28 08:00] VITALS: BP 133/78
--- NOTE | 2016-11-28 08:51 | NUR ---
AM MEDS GIVEN AT THIS TIME. PT UP TO SIDE OF BED, DENIES ANY NEEDS AT THIS TIME. CALL LIGHT IN REACH, NAD NOTED, WILL CONTINUE TO MONITOR.
[2016-11-28 12:17] VITALS: BP 98/68
--- NOTE | 2016-11-28 13:09 | NUR ---
RT WRIST IV INFILTRATED, D/C WITH TIP INTACT. NEW 22G IV STARTED TO LT FA TWO STICKS. PT TOLERARED PROCEDURE WELL. DENIES ANY NEEDS AT THIS TIME. CALL LIGHT IN REACH, NAD NOTED, WILL CONTINUE TO MONITOR.
[2016-11-28 14:50] VITALS: BP 107/59
--- NOTE | 2016-11-28 16:07 | NUR ---
PATIENT HAS NOT BEEN SEEN FOR WOUND CARE CONSULT FROM LAST WEEK. PATIENT STATES THAT HE SEE'S DR JOSHUA AT THE [facility] AND HAS A ARMIN CHANGE HIS DRESSINGS EVERY DAY. HE REPORTS TO ME THAT HIS DRESSINGS HAVE NOT BEEN CHANGED SINCE THRUSDAY. I CALLED DUYEN RN AT THE WOUND CARE CLINIC TO FIND OUT WHAT THEY PUT ON HIS LEGS AND LEFT FOOT. WILL PLACE NEW ORDERS TO BE DONE DAILY. I EXPLAINTED TO THE PATIENT THAT WE NEEDED TO GET ALL THE SUPPLIES TO BE ABLE TO DO THIS. I CALLED [facility] IN [employer] AND WE DO NOT HAVE ANY RESTORE FOR THE PATIENT DRESSING CHANGE. I ASKED THE PATIENT IF HIS ARMIN COULD BRING THIS UP FOR US TO DO THE DRESSING CHANGES AND HE SAID IT WOULD TOMORROW. I ASKED HIS PRIMARY NURSE TODAY, ANN GLORIA TO DO THE DRESSING CHANGE TOMORROW WHEN THE RESTORE IS HERE AND I WILL DO IT ON MONDAY.
--- NOTE | 2016-11-28 16:26 | NUR ---
CALLED PHARMACY AND SPOKE WITH PRECIOUS, INFOMRED HER THAT I NEED NPH/REG 70/30
--- NOTE | 2016-11-28 19:45 | NUR ---
ASSESSMENT COMPLETE. VOICES NO CO AT TIME. SR UP X 2.
[2016-11-28 20:00] VITALS: BP 115/72
--- NOTE | 2016-11-28 21:00 | NUR ---
PT SITTING UP ON SIDE OF BED. MEDS GIVEN,.
[2016-11-29] VITALS: BP 107/68
--- NOTE | 2016-11-29 00:32 | NUR ---
AWAKE, WANTING ICE. VOICES NO CO AT TIME.
--- NOTE | 2016-11-29 03:40 | NUR ---
SLEEPING NO DISTRESS NOTED. SR UP X 2.
[2016-11-29 04:00] VITALS: BP 118/58
--- NOTE | 2016-11-29 04:49 | NUR ---
AWAKE, MEDS GIVEN. VOICES NO CO AT TIME.
[2016-11-29 06:20] LABS: ALBUMIN 2.7 g/dL (3.4-5.0); ALKALINE PHOSPHATASE 80 U/L (46-116); ALT (SGPT) 18 U/L (10-68); BILIRUBIN - TOTAL 0.48 mg/dL (0.2-1.3); CALC OSMOLALITY 286 mosm/kg (275-300); CALCIUM 8.3 mg/dL (8.5-10.1); CARBON DIOXIDE 28.7 mmol/L (21.0-32.0); CHLORIDE - SERUM 100 mmol/L (98-107); CREATINE KINASE 63 UL (21-232); CREATININE - SERUM 0.9 mg/dL (0.6-1.3); GLUCOSE 227 mg/dL (74-106); POTASSIUM - SERUM 4.4 mmol/L (3.5-5.1); PROTEIN - SERUM 6.3 g/dL (6.4-8.2); SODIUM 138 mmol/L (136-145); UREA NITROGEN 23 mg/dL (7-18); eGFR NON AFRICAN AMERICAN > 90 mL/min (90-120)
[2016-11-29 06:49] LABS: BASOPHILS 0.1 % (0-2); EOSINOPHILS 0 % (0-7); HEMATOCRIT 44.2 % (42.0-54.0); HEMOGLOBIN 14.2 g/dL (13.5-17.5); IMMATURE GRANULOCYTES 1.3 % (0-5); LYMPHOCYTES 11.7 % (15-50); MCH 27.5 pg (26.0-34.0); MCHC 32.1 g/dL (31.0-37.0); MCV 85.5 fL (80.0-100.0); MEAN PLATELET VOLUME 11.8 fL (7.4-10.4); MONOCYTES 6.9 % (2-11); PLATELET COUNT 185 10x3/uL (130-400); RBC 5.17 10x6/uL (4.20-6.10); RDW 15.7 % (11.5-14.5)
--- NOTE | 2016-11-29 07:16 | NUR ---
AM ROUNDS- PT IN BED, WITH EYES CLOSED. CALL LIGHT IN REACH, BEDSIDE RAILS X2, BED LOW AND WHEELS LOCKED. NAD NOTED, WILL CONTINUE TO MONITOR.
--- NOTE | 2016-11-29 10:06 | NUR ---
AM MEDS GIVEN. PT DENIES ANY NEEDS AT THIS TIME. CALL LIGHT IN REACH, NAD NOTED, WILL CONTINUE TO MONITOR.
--- NOTE | 2016-11-29 12:03 | NUR ---
STAGE II TO SOLE OF RIGHT FOOT. MEASURING 3.5X1X0.3C. RT HINES STAGE II MEASURING 2.1X1.3X0.2CM. SOLE OF LT FOOT WOUND MEASURING 4X1X0.3CM. CLEANED WOUNDS WITH WOUND CHILD CARE ASSISTANT AND PLACED RESTORE AND THEN COVERED WITH AQUACEL AND SECURED WITH MEDIPORE TAPE. PT TOLERATED PROCEDURE WELL. PT DENIES ANY NEEDS AT THIS TIME. CALL LIGHT IN REACH, NAD NOTED, WILL CONTINUE TO MONITOR.
[2016-11-29 13:08] VITALS: BP 145/87
[2016-11-29 13:09] VITALS: BP 129/84
[2016-11-29 16:30] VITALS: BP 103/61
[2016-11-29 20:00] VITALS: BP 104/47
--- NOTE | 2016-11-29 22:08 | NUR ---
NURSING ROUNDS 21:00 - PT LYING IN BED, AWAKE, ALERT, ORIENTED, DENIES ANY NEEDS. PT STATES HE HAS NOT VOID SINCE HAVING VERGARA REMOVED EARLIER TODAY. WILL CALL WITH ANY NEEDS. PT STATES HE DOES GET UP TO BEDSIDE COMMODE WITHOUT ANY DIFFICULTY. CONTINUE TO MONITOR CLOSELY. BED LOW, CALL LIGHT IN REACH, SIDE RAILS X 2, HOB 20 DEGREES.
--- NOTE | 2016-11-30 00:07 | NUR ---
PT DID FINALLY HAVE A LARGE BM AND DID VOID A MODERATE AMOUNT OF URINE PER PATIENT. CONTINUE TO MONITOR.
[2016-11-30 04:00] VITALS: BP 118/72
[2016-11-30 06:24] LABS: BASOPHILS 0.1 % (0-2); EOSINOPHILS 0.1 % (0-7); HEMATOCRIT 43.7 % (42.0-54.0); IMMATURE GRANULOCYTES 2.2 % (0-5); LYMPHOCYTES 11.4 % (15-50); MCH 27.5 pg (26.0-34.0); MCV 85.7 fL (80.0-100.0); MEAN PLATELET VOLUME 11.3 fL (7.4-10.4); NEUTROPHILS 80.2 % (40-80); PLATELET COUNT 169 10x3/uL (130-400); RDW 15.7 % (11.5-14.5); WBC 18.3 10x3/uL (4.8-10.8)
--- NOTE | 2016-11-30 06:51 | NUR ---
PT AWAKE, ALERT, ORIENTED, DENIES ANY NEEDS. CONTINUE TO MONITOR CLOSELY.
[2016-11-30 07:06] LABS: ALBUMIN 2.7 g/dL (3.4-5.0); ALT (SGPT) 15 U/L (10-68); BILIRUBIN - TOTAL 0.53 mg/dL (0.2-1.3); CALCIUM 8.3 mg/dL (8.5-10.1); CARBON DIOXIDE 32.2 mmol/L (21.0-32.0); CHLORIDE - SERUM 100 mmol/L (98-107); CREATINE KINASE 45 UL (21-232); CREATININE - SERUM 0.8 mg/dL (0.6-1.3); SODIUM 136 mmol/L (136-145); UREA NITROGEN 23 mg/dL (7-18); eGFR NON AFRICAN AMERICAN > 90 mL/min (90-120)
[2016-11-30 07:30] LABS: CALC OSMOLALITY 287 mosm/kg (275-300); GLUCOSE 314 mg/dL (74-106)
--- NOTE | 2016-11-30 07:36 | NUR ---
AM ROUNDING- RECEIVED REPORT FROM FURNITURE RENTAL CONSULTANT NURSE PHILLIP. PT IS CURRENTLY USING BEDSIDE COMMODE. ON 02 AT 5L VIA NC. ON MONITOR SHOWING SR, HR 61. IV SEEN TO LEFT FOREARM THAT IS CURRENTLY SALINE LOCKED. PER FURNITURE RENTAL CONSULTANT NURSE PHILLIP, PT HAS NOT BEEN GETTING IV CARDIZEM DRIP DUE TO BEING IN SR. PER PHILLIP PT WILL START PO CARDIZEM THIS AM. NO NEED AT CURRENT TIME. WILL CONTINUE TO MONITOR AND CONTINUE WITH PLAN OF CARE.
[2016-11-30 07:44] LABS: ALKALINE PHOSPHATASE 71 U/L (46-116)
--- NOTE | 2016-11-30 09:17 | NUR ---
WOUND CARE NOTES: PATIENT WITH BILATERAL HOME COMPRESSION STOCKINGS WITH NO BOTTOM TO THEM. DRESSINGS TO BILATERAL LEGS AND FEET DONE ORDERED. ALL CLEANED WITH WOUND CLEANSER. RIGHT LOWER LEG HINES: 2.5 CM X 1.5 CM X 0.1 CM STAGE 2. RED WOUND BASE WITH CLEAR DRAINAGE. COVERED WITH RESTORE, AQUACEL, AND MEDIPORE TAPE. RIGHT BOTTOM OF FOOT: LOOKS LIKE A CUT WITH CLEAN WOUND BED WITH SLIGHT WHITEISH EDGES. 3.0 CM X 0.3 CM. COVERED WITH THE SAME. LEFT OUTER LOWER LEG ABOVE ANKLE: STAGE 2 2.5 CM X 2.0 CM PINK WOUND BED, RED OUTER EDGES, NO DRAINAGE. COVERED ABOVE. LEFT BOTTOM OF FOOT: DRY AND SCALE WITH STAGE 2. 5.0 CM X 0.1 CM SCABBY EDGES. TOP OF LEFT FOOT NEAR GREAT TOE IS A STAGE 1-2. MEPILEX SMALL PLACED ON THIS FOR PROTECTION. ALL DRESSING ARE DATED. LOOKING EDGES.
[2016-11-30 10:02] VITALS: BP 122/79
[2016-11-30] MEDS ORDERED: FLORAJEN3 CAPS460 MG PO (13:17)
[2016-11-30] MEDS ORDERED: CARDIZEM60 MG PO (13:17)
[2016-11-30] MEDS ORDERED: OMNICEF300 MG PO (13:17)
[2016-11-30] MEDS ORDERED: Levaquin PO (13:17)
[2016-11-30] MEDS ORDERED: PREDNISONE10 MG PO (13:20)
--- NOTE | 2016-11-30 13:49 | NUR ---
Patient Name: YAZAN ANAYA Admission Status: ER Accout number: [id number] Admission Date: 11-24-2016 : 1955 Admission Diagnosis:PNEUMONIA, UNSPECIFIED ORGANISM Attending: LUIS Current LOS: 6 Anticipated DC Date: 11-30-2016 Planned Disposition: Home with Home Health Primary Insurance: MEDICAID [place] PLANNED EXTERNAL PROVIDER: [employer] [facility] OFFICE Discharge Planning Comments: * Is the patient Alert and Oriented? Yes 0 * How many steps to enter\exit or inside your home? NONE 0 * PCP DR. MCINTYRE 0 * [facility] [place] 0 * Preadmission Environment Home with Family 0 * ADLs Partial Dependent 0 * Partial ADLs (Assistance needed) Dressing Transfers 0 * Equipment CPAP Glucometer Other Oxygen Wheelchair 0 * Other Equipment HOME AND PORTABLE OXYGEN - [facility] 0 * List name and contact numbers for known caregivers / representatives who currently or will assist patient after discharge: JASE KATARINA, COUSIN, KRISHNA YAZAN, COUSIN, MEHRDAD GALAN, FRIEND, 0 * Community resources currently utilized Home Health 0 * Please name any agencies selected above. [employer] [facility] [place] OFFICE, 0 * Additional services required to return to the preadmission environment? No 0 * Can the patient safely return to the preadmission environment? Yes 0 * Has this patient been hospitalized within the prior 30 days at any hospital? No 0 CM MET WITH PT IN ROOM TO DISCUSS DISCHARGE PLANNING AND NEEDS. PT REPORTS LIVING AT HOME PARTIALLY DEPENDENT ON HIS COUSINS FOR ASSISTANCE WITH STANDING UP AND SOMETIMES WITH BATHING. PT REPORTS HAVING ALL NEEDED MEDICAL EQUIPMENT FROM [facility] AND HOME HEALTH WITH [employer] [facility]. CM DISCUSSED AVAILABILITY OF HOME HEALTH, REHAB SERVICES AND MEDICAL EQUIPMENT. PT DENIES DISCHARGE NEEDS OTHER THAN HOME HEALTH, REPORTS HIS COUSING WILL PICK HIM UP FOR DISCHARGE HOME IN A LITTLE WHILE AND IS ON HER WAY NOW. CM CALLED [employer] [facility] [place] OFFICE, , VERIFIED PT ACTIVE FOR RESUMPTION OF CARE TOMORROW, CM FAXED DISCHARGE INFORMATION TO [employer] AT [phone]. [employer]: Yazan Oconnell
--- NOTE | 2016-11-30 15:32 | NUR ---
D/C INSTRUCTIONS EXPLAINED TO PT. D/C PAPERWORK EXPLAINED TO PT AND PLACED IN CHART. HEART MONITOR AND RETURNED TO [facility] IN TELEMETRY. IV TO LEFT FOREARM REMOVED WITH CATH TIP INTACT. COVERED SITE WITH 2X2 GAUZE PADS AND SECURED WITH TAPE. TOLERATED WELL. AWAITING WHEELCHAIR TO TAKE PT DOWN NOW.
--- NOTE | 2016-11-30 15:36 | NUR ---
PT D/C VIA WHEELCHAIR.
== END 2016-11-30 15:40 | disposition home health service (06) | DRG 291 ==
LOC: D.ER 17:50 → D.M2 21:00
PROVIDERS: Emergency Medicine; Family Medicine; Nurse Practitioner Family; ADMIT Emergency Medicine
PROC: 0T9B70Z Drainage of Bladder with Drainage Device, Via Natural or Artificial Opening (ICD-10-PCS; principal; 2016-11-24)
DX: I11.0 Hypertensive heart disease with heart failure (principal); J18.9 Pneumonia, unspecified organism; J44.0 Chronic obstructive pulmonary disease with (acute) lower respiratory infection; F17.203 Nicotine dependence unspecified, with withdrawal; N39.0 Urinary tract infection, site not specified; I47.1 Supraventricular tachycardia; I48.92 Unspecified atrial flutter; J44.1 Chronic obstructive pulmonary disease with (acute) exacerbation; I50.33 Acute on chronic diastolic (congestive) heart failure; Z91.19 Patient's noncompliance with other medical treatment and regimen; E11.65 Type 2 diabetes mellitus with hyperglycemia; Z79.4 Long term (current) use of insulin; I48.2 Chronic atrial fibrillation; I25.10 Atherosclerotic heart disease of native coronary artery without angina pectoris; F31.9 Bipolar disorder, unspecified; G47.33 Obstructive sleep apnea (adult) (pediatric); Z86.718 Personal history of other venous thrombosis and embolism

== ENCOUNTER → 2017-01-03 11:09 | Outpatient (CLI) | payer MEDICAID ==
[2016-11-25 13:23] VITALS: BMI 39.5
[~2017-01-03 11:09] MED LIST changes: +CARDIZEM60 MG PO; +Levaquin PO; +OMNICEF300 MG PO
== END | disposition home or self-care (01) ==
LOC: D.RAD 11:09
DX: J44.9 Chronic obstructive pulmonary disease, unspecified (principal)

== ENCOUNTER 2017-01-03 14:24 | Inpatient (IN) | payer MEDICAID ==
[~2017-01-03] VITALS: Ht 182.9 cm; Wt 133.1 kg
--- NOTE | ~2017-01-03 | EC ---
PATIENT:YAZAN ANAYA DATE OF SERVICE: 01/03/17 SEX: M MEDICAL RECORD: [id number] DATE OF : 53 LOCATION:D.M2 D.213 AGE OF PATIENT: 61 ADMISSION DATE: 01/03/17 REFERRING PHYSICIAN: INTERPRETING PHYSICIAN: VENTURA MAYER MD ECHOCARDIOGRAM REPORT ECHO CHARGES 4 ECHO COMPLETE CLINICAL DIAGNOSIS: CHF ECHOCARDIOGRAPHIC MEASUREMENTS (adult normal given) AC root (d.<3.7cm) 4.8 cm LV Septum d (<1.2 cm> 1.6 cm Valve Excursion 2.6 cm LV Septum (systole) 2.1 cm Left Atria (s.<4.0cm> 3.9 cm LVPW d(<1.2cm) 1.8 cm RV (d.<2.3cm) 3.1 cm LVPW (sytole) 2.3 cm LV diastole(<5.6CM) 4.2 cm MV E-F(>70mm/sec) cm LV systole 2.5 cm LVOT Diameter 2.1 cm MV exc.(>10mm) cm Est.ejection fraction (50-75%) % Pericardial Effusion N DOPPLER: LVIT cm/sec A 132 cm/sec E 97.0 cm/sec LA cm/sec RVSP 39.1 mmHg LVOT 136 cm/sec AOP1/2T m/s Asc. Ao 17 cm/sec RVOT 93.0 cm/sec RA cm/sec PA 100 cm/sec AV Gradient Peak 12.3 mmHg AV Mean 5.7 mmHg AV Area 3.0 cm MV Gradient Peak 9.0 mmHg MV Mean 3.1 mmHg MV Area cm COMMENTS: Associate Project Manager: 1 JOHANNE STERNOE Transfer Knitter: 1 Dr. Mayer TAPE# PACS DATE OF SERVICE: 01/04/2017 FINDINGS: 1. Left ventricle chamber size is within normal limits. Left ventricular systolic function is normal. Overall ejection fraction estimated at 50%. 2. Left atrium is within normal limits at 3.9 cm, right atrium and right ventricular chamber sizes are mildly dilated. 3. Valvular structures have normal structure and motion. 4. Doppler interrogation reveals no significant valvular insufficiency or stenosis and pulmonary systolic pressure is normal estimated at 39 mmHg. ECHOCARDIOGRAM REPORT [id number] YAZAN ANAYA 5. No evidence of pericardial effusion or left ventricular thrombus. TRANSINT:[id number] Voice Confirmation ID: [id number] DOCUMENT ID: [id number] VENTURA MAYER MD CC: [id number] DICTATION DATE: 01/04/17 1135 DATA WAREHOUSE CONSULTANT: 01/04/17 1639 DIS IN 01/07/17 [facility] [address] [place] [id number]
--- NOTE | ~2017-01-03 | CN ---
PATIENT NAME:YAZAN ANAYA MEDICAL RECORD: [id number] : 53 LOCATION:D.M2 D.2139 ADMIT DATE: 01/03/17 ACCOUNT: [id number] CONSULTING PHYSICIAN: NEGIN ARREDONDO MD REFERRING PHYSICIAN: PETE ROWELL MD DATE OF CONSULTATION: 01/04/2017 Pulmonary Consultation CONSULT REQUESTING PHYSICIAN: Pete Rowell MD. REASON FOR CONSULTATION: Acute exacerbation of COPD, pneumonia and pulmonary edema. HISTORY OF PRESENT ILLNESS: Mr. Anaya is a 61-year-old gentleman who was seen in Dr. Braun's office yesterday. Chest radiograph was done, which showed bilateral infiltrate. The patient also had shortness of breath with exertion. He was also feeling feverish. He also has a cough which was productive with white-yellow color sputum production. He was hearing himself wheezing. REVIEW OF SYSTEMS: Mainly in the history of present illness. PAST MEDICAL HISTORY: 1. COPD, home oxygen dependent. 2. Obstructive sleep apnea on the CPAP. 3. Congestive heart failure. 4. Peripheral arterial disease. 5. Diabetes mellitus type 2 with neuropathy. 6. Coronary artery disease. 7. History of DVT in the past. PAST SURGICAL HISTORY: He has a left toe amputation, second toe amputation. ALLERGIES: No known drug allergies. PRESENT MEDICATIONS: On Honestly Now is reviewed. PERSONAL AND SOCIAL HISTORY: The patient is still a smoker. He is a nondrinker. FAMILY HISTORY: Significant for cancer and lung diseases. PHYSICAL EXAMINATION: GENERAL: Now, the patient is lying in bed. He is not in acute distress. VITAL SIGNS: The blood pressure is 130/79, pulse is 93, respirations are 18, temperature 98.4 and SPO2 is 90% on 4 liters nasal cannula. HEENT: Conjunctivae are pink, sclerae nonicteric. NECK: Supple. No JVD. CHEST: Excursion is minimal on both sides. There is prolonged expiratory wheezing. There are bilateral crackles. HEART: Rhythm regular, normal sound, no murmur. ABDOMEN: Soft. Bowel sounds present. No hepatosplenomegaly. RECTAL: Deferred. EXTREMITIES: No cyanosis, no clubbing, no pedal edema. SKIN: Warm. CONSULT REPORT [id number] YAZAN ANAYA CENTRAL NERVOUS SYSTEM: The patient is awake and alert. There is no obvious cranial nerve abnormality. The gait was not tested. EXTREMITIES: There is 2+ pedal edema. IMAGING DATA: Chest radiograph: There are bilateral lower lobe infiltrates, increased interstitial marking. LABORATORY DATA: CBC: The WBC is 13.7, hemoglobin 13.8, hematocrit 42.2 and the platelet count 242. Chemistry: Sodium 138, potassium is 4, BUN is 6 and creatinine 0.6. The ProBNP is 1335. IMPRESSION: 1. Ldtdk-xp-btspnsh hypoxic respiratory failure, which is multifactorial. A. Bibasilar bilateral pneumonia, most likely hospital-acquired pneumonia with recent hospitalization. B. Pulmonary edema. 2. Acute exacerbation of chronic obstructive pulmonary disease. 3. Congestive heart failure. 4. Obstructive sleep apnea. RECOMMENDATIONS: 1. Continue Lasix. 2. Continue Zithromax and Rocephin. 3. Start on albuterol and ipratropium nebulizer. Start on Brovana, budesonide nebulizer, methylprednisolone IV. 4. Follow up labs and chest radiograph in the morning. Dr. Rowell, thank you for involving me in the care of Mr. Anaya. TRANSINT:[id number] Voice Confirmation ID: [id number] DOCUMENT ID: [id number] NEGIN ARREDONDO MD CC: PETE ROWELL MD [id number] DICTATION DATE: 01/04/171723 QUALITY PROCESS AUDITOR: 01/04/172199 ADM IN [place] [id number] [place] [id number]
[2017-01-03 15:19] LABS: BASOPHILS 0.2 % (0-2); EOSINOPHILS 0.4 % (0-7); HEMATOCRIT 42.2 % (42.0-54.0); HEMOGLOBIN 13.8 g/dL (13.5-17.5); IMMATURE GRANULOCYTES 0.4 % (0-5); LYMPHOCYTES 14.7 % (15-50); MCH 28.2 pg (26.0-34.0); MCHC 32.7 g/dL (31.0-37.0); MCV 86.3 fL (80.0-100.0); MEAN PLATELET VOLUME 10.5 fL (7.4-10.4); MONOCYTES 7.3 % (2-11); PLATELET COUNT 242 10x3/uL (130-400); RBC 4.89 10x6/uL (4.20-6.10); RDW 16.9 % (11.5-14.5); WBC 13.7 10x3/uL (4.8-10.8)
[2017-01-03 15:56] LABS: ALKALINE PHOSPHATASE 94 U/L (46-116); ALT (SGPT) 12 U/L (10-68); CALC OSMOLALITY 271 mosm/kg (275-300); CALCIUM 8.9 mg/dL (8.5-10.1); CARBON DIOXIDE 29.8 mmol/L (21.0-32.0); CHLORIDE - SERUM 101 mmol/L (98-107); CREATININE - SERUM 0.6 mg/dL (0.6-1.3); PROTEIN - SERUM 7.2 g/dL (6.4-8.2); SODIUM 138 mmol/L (136-145); UREA NITROGEN 6 mg/dL (7-18); eGFR NON AFRICAN AMERICAN > 90 mL/min (90-120)
[2017-01-03 15:57] LABS: GLUCOSE 62 mg/dL (74-106)
[2017-01-03 16:07] LABS: CKMB 0.5 U/L (0.0-3.6); CREATINE KINASE 48 UL (21-232); PRO BNP 1335 pg/mL (0-125); TROPONIN-I < 0.017 ng/mL (0.000-0.060)
[2017-01-03 18:42] LABS: COLOR AMBER (YELLOW)
[2017-01-03 18:43] LABS: APPEARANCE CLEAR (CLEAR); BACTERIA FEW /hpf (NONE SEEN); BILIRUBIN NEGATIVE (NEGATIVE); GLUCOSE NEGATIVE (NEGATIVE); KETONE NEGATIVE (NEGATIVE); LEUKOCYTE ESTERASE NEGATIVE (NEGATIVE); NITRITE NEGATIVE (NEGATIVE); PROTEIN NEGATIVE (NEGATIVE); RED CELLS - URINE 0-5 /hpf (0-5); SPECIFIC GRAVITY 1.005 (1.005-1.020); UROBILINOGEN NORMAL (NORMAL); WHITE CELLS - URINE 0-5 /hpf (0-5)
--- NOTE | 2017-01-03 22:21 | NUR ---
PT ARRIVED TO FLOOR. VIA WHEEL CHAIR. 4L O2 NC. AMBULATE TO BED WITH ASSIST X1. PT IS A&O X4. NO S/S OF DISTRESS. PT DENIES ANY NEEDS. WILL CPOC
[2017-01-04] VITALS: BP 128/59
[2017-01-04 04:24] LABS: BASOPHILS 0.2 % (0-2); EOSINOPHILS 1.3 % (0-7); HEMATOCRIT 41.2 % (42.0-54.0); HEMOGLOBIN 13.1 g/dL (13.5-17.5); IMMATURE GRANULOCYTES 0.3 % (0-5); LYMPHOCYTES 15.6 % (15-50); MCH 27.6 pg (26.0-34.0); MCHC 31.8 g/dL (31.0-37.0); MCV 86.9 fL (80.0-100.0); MEAN PLATELET VOLUME 10.5 fL (7.4-10.4); MONOCYTES 7.7 % (2-11); NEUTROPHILS 74.9 % (40-80); PLATELET COUNT 249 10x3/uL (130-400); RBC 4.74 10x6/uL (4.20-6.10); RDW 16.7 % (11.5-14.5)
[2017-01-04 04:56] LABS: CALCIUM 8.5 mg/dL (8.5-10.1); CARBON DIOXIDE 34.2 mmol/L (21.0-32.0); CHLORIDE - SERUM 100 mmol/L (98-107); CREATININE - SERUM 0.7 mg/dL (0.6-1.3); MAGNESIUM - SERUM 1.8 mg/dL (1.8-2.4); POTASSIUM - SERUM 3.6 mmol/L (3.5-5.1); PRO BNP 1429 pg/mL (0-125); SODIUM 138 mmol/L (136-145); eGFR NON AFRICAN AMERICAN > 90 mL/min (90-120)
[2017-01-04 05:00] LABS: CALC OSMOLALITY 274 mosm/kg (275-300); GLUCOSE 126 mg/dL (74-106); UREA NITROGEN 4 mg/dL (7-18)
--- NOTE | 2017-01-04 05:27 | NUR ---
PT RESPIRATIONS EVEN AND UNLABORED. LAYING ON RIGHT SIDE SNORING. PT BED LOW AND CALL LIGHT WITHIN REACH.WILL CPOC
--- NOTE | 2017-01-04 07:12 | HP ---
PATIENT: YAZAN ANAYA MEDICAL RECORD: [id number] ACCOUNT: [id number] LOCATION:[address] : [birth year] ADMISSION DATE: 01/03/17 HISTORY AND PHYSICAL EXAMINATION DATE OF ADMISSION: 01/03/2017 CHIEF COMPLAINT: Shortness of breath. HISTORY OF PRESENT ILLNESS: This patient is a 61-year-old gentleman who apparently had been followed by local diamond sizer and appeared to be in the diamond sizer's office today and was told to present to the Emergency Room where he was admitted to my service on an unassigned medicine. The patient apparently sees a Dr. Julio in [place]. The patient states that he has had cough, he has had congestion and continues to smoke 2 packs of cigarettes on a daily basis. PAST MEDICAL HISTORY: Significant that he has had a history of COPD times 40 years, been a 2 pack per day smoker for 40 years, continues to smoke. He is diabetic, overweight, hypertension. He has left second toe amputation, CHF. FAMILY HISTORY: Father of cancers, emphysema at 70, mother of cancer at 70. SOCIAL HISTORY: Born in [place]. Lives in [place] 40+ years, worked in [employer], is not . He has no children. HABITS: The patient states he does not drink. ALLERGIES: None. MEDICATIONS: He is not sure, although he does take ranitidine, metoprolol, metformin, lisinopril, insulin, folic acid, Mucinex, Novolin 60 units in a.m. and 59 units in the p.m. REVIEW OF SYSTEMS: CONSTITUTIONAL: He denies any headaches, seizures, or syncope. Denies change in visual or auditory acuity. PULMONARY: He does report having some cough, or congestion. CARDIOVASCULAR: He has had no chest pain, palpitation, PND, orthopnea. GASTROINTESTINAL: No chronic nausea, vomiting, melena or hematochezia. GENITOURINARY: No urgency, frequency, or dysuria. PHYSICAL EXAMINATION: GENERAL: He is not a well kept male. He is morbidly obese, very disrespectful to the nursing staff. He is 312 pounds. His BMI is 40.1. VITAL SIGNS: His temperature is 98, his pulse was 91, respirations 26 and blood pressure 114/76. His O2 sat is 87 on room air. HEENT: His head is normocephalic. No lesions. Ears: TMs clear. Eyes: Pupils equal, round and reactive to light and his extraocular movements intact. Nasal cavity, oral cavity and oropharynx clear. NECK: Supple. There is no adenopathy. HEART: Somewhat tachycardic, irregular. LUNGS: He has expiratory wheezes. Decreased breath sounds in all ron. ABDOMEN: Protuberant. EXTREMITIES: He has a 1-2+ pretibial edema. HISTORY AND PHYSICAL [id number] YAZAN ANAYA LABORATORY DATA: This patient had a chest x-ray, which showed bilateral interstitial prominence, increased since previous exam findings suggestive of edema or pneumonitis. The patient had a white count of 13.7, his hemoglobin was 13, hematocrit 42.2, his platelets were 242. His sodium 138, potassium 4, chloride 101, CO2 is 29.8. His BUN is 6, creatinine 0.6. His blood sugar was 62. Cardiac enzymes unremarkable. ProBNP was 1335. ASSESSMENT: 1. Morbid obesity. 2. History of congestive heart failure. 3. Chronic obstructive pulmonary disease. 4. Hypoxemia. PLAN: The patient is admitted. A cardiology as well as pulmonary consultation will be obtained. He will have sputum culture, blood cultures. He will be placed on Rocephin 1 gram q.24 hours, Zithromax 500 mg IV q.24 hours. Also, the patient will be given Solu-Medrol 60 mg IV q.8 hours, be placed on insulin sliding scale. Echocardiogram will be performed. TRANSINT:[id number] Voice Confirmation ID: [id number] DOCUMENT ID: [id number] PETE ROWELL MD at 0712 CC: [id number] DICTATION DATE: 01/03/171927 DEPUTY DIRECTOR: 01/03/171999 ADM IN [facility] [address] [place] [address]
[2017-01-04 09:00] VITALS: BP 130/79
[2017-01-04 13:39] VITALS: Ht 182.9 cm; Wt 133.1 kg
[2017-01-04 16:00] VITALS: BP 129/70
--- NOTE | 2017-01-04 16:00 | NUR ---
ALERT AND ORIENTED X4. RESTING IN BED. VERGARA DRAINING BY GRAVITY AT BEDSIDE. RT HAND IV INFILTRATED. DC RT HAND IV TIP INTACT. IV RESITE TO LT FA 22G BY VASCULAR ACCESS NURSE. DENIES ANY NEEDS. BED LOCKED AND LOW. CALL LIGHT IN REACH. TWO SIDERAILS UP.
[2017-01-04 19:00] VITALS: BP 130/82
--- NOTE | 2017-01-04 21:00 | NUR ---
REFUSED TO HAVE FSBS CHECKED
--- NOTE | 2017-01-05 01:32 | NUR ---
CALL LIGHT IN REACH, WILL CONTINUE WITH PLAN OF CARE.
[2017-01-05 04:00] VITALS: BP 114/58
[2017-01-05 04:40] LABS: BASOPHILS 0 % (0-2); EOSINOPHILS 0 % (0-7); HEMATOCRIT 42.3 % (42.0-54.0); HEMOGLOBIN 13.8 g/dL (13.5-17.5); IMMATURE GRANULOCYTES 0.4 % (0-5); LYMPHOCYTES 8.4 % (15-50); MCH 28.1 pg (26.0-34.0); MCHC 32.6 g/dL (31.0-37.0); MCV 86.2 fL (80.0-100.0); MEAN PLATELET VOLUME 10.7 fL (7.4-10.4); MONOCYTES 2.6 % (2-11); NEUTROPHILS 88.6 % (40-80); PLATELET COUNT 259 10x3/uL (130-400); RBC 4.91 10x6/uL (4.20-6.10); RDW 16.1 % (11.5-14.5); WBC 9.8 10x3/uL (4.8-10.8)
[2017-01-05 04:59] LABS: CALCIUM 8.7 mg/dL (8.5-10.1); CARBON DIOXIDE 34.4 mmol/L (21.0-32.0); CHLORIDE - SERUM 95 mmol/L (98-107); MAGNESIUM - SERUM 2.2 mg/dL (1.8-2.4); POTASSIUM - SERUM 4.1 mmol/L (3.5-5.1); SODIUM 136 mmol/L (136-145); eGFR NON AFRICAN AMERICAN 80 mL/min (90-120)
[2017-01-05 05:00] LABS: CALC OSMOLALITY 293 mosm/kg (275-300); GLUCOSE 478 mg/dL (74-106); UREA NITROGEN 15 mg/dL (7-18)
--- NOTE | 2017-01-05 07:37 | NUR ---
PT LAYING TO R SIDE SLEEPING NO S/S DISTRESS NOTED RR EVEN AND UNLABORED WILL CONT TO MONITOR
[2017-01-05 08:00] VITALS: BP 119/70
[2017-01-05 12:00] VITALS: BP 113/68
--- NOTE | 2017-01-05 12:06 | NUR ---
PAGED DR AMBRIZ FOR PT HIGH BS OF 512
[2017-01-05 15:36] VITALS: BP 116/45
--- NOTE | 2017-01-05 17:06 | NUR ---
GOT IN TOUCH WITH DR KELLOGG LEATHER ROLLER FOR DR AMBRIZ CHANGED HIS HUMALOG TO INTERMEDIATE SCALE.
--- NOTE | 2017-01-05 18:25 | NUR ---
PT SITTING UP IN BED WATCHING TV DENIES NEEDS
--- NOTE | 2017-01-05 18:35 | NUR ---
PT IS YELLING AT SERVICE OBSERVER CHIEF CAN HEAR HIM FROM DOWN THE HALLWAY WENT IN THE PT ROOM TO SEE WHAT THE PROBLEM WAS PT IS SCREAMING SAYING THAT HE WANTS MORE TO DRINK NOW. EXPLAINED TO PT THAT HE HAS ALMOST MET HIS FLUID RESTRICTION LIMIT AND THAT HE CAN HAVE ABOUT ONE MORE DRINK BEFORE HE HITS IT AND CAN NOT HAVE ANYTHING ELSE UNTIL MIDNIGHT. PT SCREAMING "WHAT DAMN DOCTOR EVEN ORDERED THIS?! I HAVE BEEN DRINKING WHATEVER THE HELL I WANT FOR DAYS!" TRIED SEVERAL TIMES TO TELL PT THAT DR AMBRIZ ORDERED THIS AND WHAT THE REASONING IS (PT WITH CHF AND WE ARE TRYING TO ILLIMINATE FLUID SO HE CAN GO HOME). PT IS STILL YELLING AND SCREAMING. PT SAID HE WANTS HIS LAST DRINK NOW, GIVEN AND EXPLAINED AGAIN THAT THIS IS THE LAST ONE UNTIL MIDNIGHT. HE CAN ONLY HAVE 1500 CC DAILY. WHEN SERVICE OBSERVER CHIEF AND I EXITED THE ROOM SERVICE OBSERVER CHIEF TOLD ME THAT WHEN SHE WAS IN THE ROOM BEFORE I ENTERED TRYING TO EXPLAIN TO PT THAT HE WAS ON A FLUID RESTRICTION HE TOLD HER THAT THIS AUTHOR, HIS NURSE, "COULD JUST GO HOME AND KILL HERSELF BECAUSE SHE IS LYING. NO DOCTOR TOLD ME ABOUT ANY RESTRICTIONS I CAN DRINK WHATEVER I WANT." NOTIFIED SHREDDER PICKER ELKIN PELAEZ.
--- NOTE | 2017-01-05 18:54 | NUR ---
SECURITY AND JERE [place] SUP WENT AND TALKED WITH PT
[2017-01-05 19:00] VITALS: BP 171/54
--- NOTE | 2017-01-05 19:35 | NUR ---
PT IN BED WATCHING TELEVISION. EXPLAINED TO PT HE IS ON 1500CC FLUID RESTRICTION. WHILE HE IS NOT HAPPY ABOUT IT HE UNDERSTANDS HE HAS TO FOLLOW IT. WILL CONTINUE TO MONITOR.
[2017-01-06] VITALS: BP 119/66
--- NOTE | 2017-01-06 04:08 | NUR ---
SECRETARY OF POLICE AT BEDSIDE TO OBTAIN VITALS, CALL LIGHT IN REACH. WILL CONTINUE WITH PLAN OF CARE.
[2017-01-06 05:32] LABS: CALCIUM 8.9 mg/dL (8.5-10.1); CARBON DIOXIDE 38.7 mmol/L (21.0-32.0); CHLORIDE - SERUM 100 mmol/L (98-107); MAGNESIUM - SERUM 2.3 mg/dL (1.8-2.4); POTASSIUM - SERUM 3.8 mmol/L (3.5-5.1); PRO BNP 1406 pg/mL (0-125); SODIUM 141 mmol/L (136-145); eGFR NON AFRICAN AMERICAN 80 mL/min (90-120)
[2017-01-06 05:34] LABS: CALC OSMOLALITY 302 mosm/kg (275-300); GLUCOSE 461 mg/dL (74-106)
[2017-01-06 05:35] LABS: UREA NITROGEN 19 mg/dL (7-18)
--- NOTE | 2017-01-06 07:45 | NUR ---
AM ROUNDS COMPLETED. PT A&O RESTING QUIETLY IN BED. VERGARA IN PLACE DRAINING TO GRAVITY STAT LOCK SECURED TO R.INNER THIGH. PT HAS BILAT BELEN PEREZ DRSG TO LEGS BUT STATES NOT TO TOUCH OR ASSESS THEM AND THAT HE WILL DO IT "AT HOME" ALLOWED PT TO KEEP HIS WISHES. PT ON FLUID RESTRICTION OF 1500CC AND VERBALIZED UNDERSTANDING BUT NURSES HAVE REPORTED HE IS NONCOMPLIANT. RR NONLABORED WITH NC @4L IN PLACE. PT DENIES ANY CURRENT NEEDS. CL IN REACH, BED IN LOWEST, SIDE RAILS X2. WILL CPOC.
[2017-01-06 08:00] VITALS: BP 101/66
[2017-01-06 12:25] VITALS: BP 117/70
--- NOTE | 2017-01-06 12:30 | NUR ---
FSBS 382 PT REC'D 16 UNITS PER SS INSULIN. PT SITTING UP ON EDGE OF BED RESTING AND STATES HE IS COMFORTABLE. PTS L.HAND PIV DRSG PEELING OFF. CHANGED OUT TEGADERM AND DATED NEW ONE. DRSG CDI AND SWAB CAPS IN USE. PT DENIES ANY FURTHER NEEDS AT THIS TIME AND IS AWAITING LUNCH. WILL CPOC.
--- NOTE | 2017-01-06 13:34 | CN ---
PATIENT NAME:YAZAN ANAYA MEDICAL RECORD: [id number] : 53 LOCATION:D.M2 D.2139 ADMIT DATE: 01/03/17 ACCOUNT: [id number] CONSULTING PHYSICIAN: VENTURA BENSON MD REFERRING PHYSICIAN: PETE ROWELL MD DATE OF CONSULTATION: 01/04/2017 DIAGNOSES: 1. Shortness of breath. 2. Chronic obstructive pulmonary disease. 3. Obesity. HISTORY OF PRESENT ILLNESS: This is a gentleman who presents with increasing shortness of breath. We are asked to see him regarding congestive heart failure. He does have COPD and he is with a COPD exacerbation, probable pneumonia. Echocardiogram was performed This reveals a normal ejection fraction, no pulmonary hypertension, no valvular heart disease. PHYSICAL EXAMINATION: GENERAL APPEARANCE: Well-nourished, well-developed, appears stated age. Level of distress, comfortable. PSYCHIATRIC: Mental status, alert, normal affect. Orientation, oriented to time, place and person. EYES: Lids and conjunctiva, noninjected. No discharge, no pallor. ENT: Lips, teeth, gums, normal dentition. Oropharynx, no cyanosis, no pallor. NECK: Carotid arteries, bilateral normal upstroke, no bruits, no thrills. JUGULAR VEINS: No jugular venous pressure or distention. CERVICAL LYMPH NODES: Nontender, nonenlarged. THYROID: Not enlarged. Nontender. No nodules. LUNGS: Respiratory effort, unlabored. CHEST: Normal curvature. No thoracic deformity. No chest wall tenderness. Percussion, resonant. Auscultation, clear. No wheezes, no rales, no rhonchi. CARDIOVASCULAR: Precordial exam, nondisplaced. No heaves or pericardial thrills. Rate and rhythm, regular. Heart sounds, normal S1, normal S2. No S3, no gallop, no rub. Systolic murmur, not heard. Diastolic murmur, not heard. EXTREMITIES: No cyanosis, no edema. Peripheral pulses, full and equal in all extremities, except as noted. No bruits appreciated. ABDOMEN: Soft, nondistended. Normal aorta. No bruit. Nontender. No masses. Liver, nontender, no hepatomegaly. Spleen, nontender, no splenomegaly. MUSCULOSKELETAL: No joint tenderness. No joint swelling. No erythema. NEUROLOGICAL: Normal gait, normal strength, normal tone. SKIN: Warm and dry. REVIEW OF SYSTEMS: The patient reports easy bruising but reports no swollen glands. The patient reports no fever, no night sweats, no significant weight gain, no significant weight loss. No significant exercise tolerance. The patient reports no dry eyes, no irritation, no vision change. Patient reports no difficulty hearing and no ear pain. Patient reports no frequent nose bleeds or nose and sinus problems. Patient reports on arm pain on exertion. No shortness of breath while lying down. No history of heart murmur. Patient reports no cough, no wheezing or coughing up blood. Patient reports no abdominal pain, no vomiting. Normal appetite. No diarrhea and not vomiting blood. No nausea and no constipation. Patient reports no incontinence. No difficulty urinating. No hematuria. No increased frequency. Patient reports no muscle aches. No weakness, no arthralgias, no back pain. No swelling of the CONSULT REPORT [id number] JACLYNYAZAN extremities. Patient reports no abnormal mole, no jaundice, no rashes. Reports no loss of consciousness. No weakness and no numbness. No seizures, dizziness, or headaches. The patient reports no depression, no sleep disturbance, feeling safe in a relationship and no alcohol abuse. Patient reports on fatigue. Reports no runny nose or sinus pressure. No itching, no hives, and no frequent sneezing. OVERALL IMPRESSION: Shortness of breath is not secondary to congestive heart failure. The patient does not have congestive heart failure. No other cardiac workup or treatment is necessary. TRANSINT:[id number] Voice Confirmation ID: [id number] DOCUMENT ID: [id number] VENTURA BENSON MD at 1334 CC: [id number] DICTATION DATE: 01/04/17 1146 PLASTIC JIG AND FIXTURE BUILDER: 01/04/17 1802 ADM IN [facility] [address] [place] [address]
[2017-01-06 16:24] VITALS: BP 112/69
--- NOTE | 2017-01-06 18:00 | NUR ---
PT RECIEVING ASSISTED BATH FROM SYNTHETIC DEPARTMENT SUPERVISOR AT BEDSIDE. PT DENIES ANY CURRENT NEEDS AT THIS TIME. PT HAS CAME CLOSE TO FLUID AMOUNT FOR TODAY SO I ENCOURAGED HIM TO MAKE SURE TO MONITER IT BUT PT SAID "YEA YEA I KNOW WHAT TO DO" NO FURTHER NEEDS WILL REPORT TO NIGHTSHIFT NURSE.
[2017-01-06 19:00] VITALS: BP 133/73
--- NOTE | 2017-01-06 19:26 | NUR ---
RECEIVED REPORT, WILL ASSUME CARE OF PT, PT DENIES ANY NEEDS AT THIS TIME, BED IS LOW, SRX2, CALL LIGHT IN REACH, WILL CONTINUE PLAN OF CARE
--- NOTE | 2017-01-06 20:41 | NUR ---
[place] [id number], GAVE 20 UNITS OF HUMALOG ORDER
[2017-01-07] VITALS: BP 116/64
[2017-01-07 04:00] VITALS: BP 123/70
--- NOTE | 2017-01-07 04:09 | NUR ---
PT SLEEPING, BED IS LOW, SRX2, WILL CONTINUE TO MONITOR
[2017-01-07 04:28] LABS: BASOPHILS 0 % (0-2); EOSINOPHILS 0 % (0-7); HEMATOCRIT 45.3 % (42.0-54.0); HEMOGLOBIN 14.4 g/dL (13.5-17.5); IMMATURE GRANULOCYTES 0.3 % (0-5); LYMPHOCYTES 8.8 % (15-50); MCH 27.7 pg (26.0-34.0); MCHC 31.8 g/dL (31.0-37.0); MCV 87.1 fL (80.0-100.0); MEAN PLATELET VOLUME 11.2 fL (7.4-10.4); MONOCYTES 4.2 % (2-11); NEUTROPHILS 86.7 % (40-80); PLATELET COUNT 245 10x3/uL (130-400); RDW 15.9 % (11.5-14.5)
[2017-01-07 04:29] LABS: WBC 15.9 10x3/uL (4.8-10.8)
[2017-01-07 04:45] LABS: CALCIUM 8.5 mg/dL (8.5-10.1); CARBON DIOXIDE 34.9 mmol/L (21.0-32.0); CHLORIDE - SERUM 97 mmol/L (98-107); POTASSIUM - SERUM 3.8 mmol/L (3.5-5.1); SODIUM 136 mmol/L (136-145); UREA NITROGEN 20 mg/dL (7-18)
[2017-01-07 04:50] LABS: CALC OSMOLALITY 284 mosm/kg (275-300); CREATININE - SERUM 0.7 mg/dL (0.6-1.3); GLUCOSE 283 mg/dL (74-106); eGFR NON AFRICAN AMERICAN > 90 mL/min (90-120)
[2017-01-07 08:49] VITALS: BP 111/71
[2017-01-07] MEDS ORDERED: ZITHROMAX250 MG PO (10:17)
[2017-01-07] MEDS ORDERED: BROVANA15 MCG/2 M INH (10:18)
[2017-01-07] MEDS ORDERED: STERAPRED DS 1010 MG PO (10:19)
[2017-01-07] MEDS ORDERED: PULMICORT0.5 MG/21 UPD (10:19)
[2017-01-07] MEDS ORDERED: LASIX80 MG PO (10:20)
[2017-01-07 13:18] VITALS: BP 116/79
--- NOTE | 2017-01-07 15:39 | NUR ---
PT IS LAYING IN BED ON RIGHT SIDE WITH EYES OPEN RESTING. PT IS ANXIOULSY AWAITING D/C. I INFORMED PT THAT OUR FOREMAN OR SUPERVISOR AND OPERATOR IS WORKING ON HIS PAPERWORK NOW.
--- NOTE | 2017-01-07 16:10 | NUR ---
D/C PAPERWORK EXPLAINED TO PT. D/C PAPERWORK SIGNED BY PT. IV TO RIGHT HAND REMOVED WITH CATH TIP INTACT. COVERED SITE WITH 2X2 GAUZE PADS AND SECURED WITH TAPE. VERGARA CATHETER REMOVED WITH 9CC OF FLUID PULLED OUT OF BALLOON. TOLERATED WELL. ANN CARCAMO (GRAPHIC DESIGN ASSISTANT) INFORMED ME THAT PTS DISCHARGE MEDICATIONS WHERE SENT TO [facility] HOWEVER, THEY ARE CLOSED UNITL MONDAY. THIS NURSE EXPLAINED TO PT THAT HE WOULD NOT BE ABLE TO GET HIS MEDICATIONS FILLED UNITL MONDAY AND IT IS NOT ADVISED TO STOP TAKING PREDNISONE FOR A DAY PLUS ZITHROMAX. PT STATES "IT WILL BE FINE I WILL GET THEM FILLED MONDAY WHEN [facility] UP". PT D/C VIA WHEELCHAIR.
--- NOTE | 2017-01-07 16:15 | NUR ---
0715- AM ROUNDING- PT IS CURRENTLY SITTING UP IN BED WITH EYES OPEN RESTING. THIS NURSE INTRODUCED HERSELF PTS NURSE FOR TODAY. ON 02 AT 4L VIA NC. NO MONITOR. IV SEEN TO LEFT HAND THAT IS CURRENTLY SALINE LOCKED. PT IS ON 1,500CC FLUID RESTRICTION AND STATES HE IS AWARE OF THIS. BILATERAL BELEN HOSE (PER REPORT PTS OWN BELEN HOSE) SEEN TO BILATERAL LOWER EXTREMITIES. NO NEED AT THIS CURRENT TIME. WILL CONTINUE TO MONITOR AND CONTINUE WITH PLAN OF CARE.
== END 2017-01-07 16:18 | disposition home or self-care (01) | DRG 291 ==
LOC: D.ER 14:24 → D.M2 21:55
PROVIDERS: Family Medicine; ADMIT Family Medicine
DX: I50.23 Acute on chronic systolic (congestive) heart failure (principal); J18.9 Pneumonia, unspecified organism; J96.21 Acute and chronic respiratory failure with hypoxia; J44.0 Chronic obstructive pulmonary disease with (acute) lower respiratory infection; Z68.41 Body mass index [BMI] 40.0-44.9, adult; J44.1 Chronic obstructive pulmonary disease with (acute) exacerbation; G47.33 Obstructive sleep apnea (adult) (pediatric); E11.40 Type 2 diabetes mellitus with diabetic neuropathy, unspecified; I25.10 Atherosclerotic heart disease of native coronary artery without angina pectoris; Z86.718 Personal history of other venous thrombosis and embolism; Z72.0 Tobacco use; E66.01 Morbid (severe) obesity due to excess calories

== ENCOUNTER 2017-02-10 19:09 | Inpatient (IN) | payer MEDICAID ==
[~2017-02-10 19:09] MED LIST changes: +BROVANA15 MCG/2 M INH; +LASIX80 MG PO; +PULMICORT0.5 MG/21 UPD; +STERAPRED DS 1010 MG PO; +ZITHROMAX250 MG PO
[2017-02-10 19:51] LABS: BASOPHILS 0.2 % (0-2); EOSINOPHILS 2.5 % (0-7); HEMATOCRIT 40.4 % (42.0-54.0); HEMOGLOBIN 13.4 g/dL (13.5-17.5); IMMATURE GRANULOCYTES 0.5 % (0-5); MCH 28.4 pg (26.0-34.0); MCHC 33.2 g/dL (31.0-37.0); MCV 85.6 fL (80.0-100.0); MEAN PLATELET VOLUME 11.4 fL (7.4-10.4); MONOCYTES 6.5 % (2-11); NEUTROPHILS 71.3 % (40-80); PLATELET COUNT 232 10x3/uL (130-400); RBC 4.72 10x6/uL (4.20-6.10); RDW 15.4 % (11.5-14.5); WBC 15.5 10x3/uL (4.8-10.8)
[2017-02-10 20:01] LABS: APPEARANCE CLEAR (CLEAR); BILIRUBIN NEGATIVE (NEGATIVE); COLOR YELLOW (YELLOW); GLUCOSE NEGATIVE (NEGATIVE); KETONE NEGATIVE (NEGATIVE); NITRITE NEGATIVE (NEGATIVE); PROTEIN NEGATIVE (NEGATIVE); UROBILINOGEN NORMAL (NORMAL)
[2017-02-10 20:04] LABS: BACTERIA MODERATE /hpf (NONE SEEN); RED CELLS - URINE 0-5 /hpf (0-5)
[2017-02-10 20:09] LABS: ALBUMIN 3.1 g/dL (3.4-5.0); ALKALINE PHOSPHATASE 99 U/L (46-116); ALT (SGPT) 11 U/L (10-68); CALC OSMOLALITY 269 mosm/kg (275-300); CALCIUM 9.2 mg/dL (8.5-10.1); CHLORIDE - SERUM 97 mmol/L (98-107); CREATININE - SERUM 0.8 mg/dL (0.6-1.3); POTASSIUM - SERUM 3.5 mmol/L (3.5-5.1); PROTEIN - SERUM 7.1 g/dL (6.4-8.2); SODIUM 135 mmol/L (136-145); UREA NITROGEN 10 mg/dL (7-18); eGFR NON AFRICAN AMERICAN > 90 mL/min (90-120)
[2017-02-10 20:11] LABS: APTT 32.1 SECONDS (22.8-39.4); INR 1.07 (0.85-1.17); PROTIME 13.7 SECONDS (11.6-15.0)
[2017-02-10 20:14] LABS: GLUCOSE 109 mg/dL (74-106)
[2017-02-10 20:19] LABS: CKMB 0.5 U/L (0.0-3.6); CREATINE KINASE 50 UL (21-232); PRO BNP 1287 pg/mL (0-125)
[2017-02-10 20:20] LABS: TROPONIN-I < 0.017 ng/mL (0.000-0.060)
[2017-02-10 20:34] LABS: D-DIMER-QUANTITATIVE 0.68 ug/mLFEU (0.20-0.54)
[2017-02-10] MEDS ORDERED: BUMEX 1 MG TAB1 MG PO (22:33)
[2017-02-10] MEDS ORDERED: CARDIZEM60 MG PO (22:34)
[2017-02-10] MEDS ORDERED: METOPROLOL TART50 MG PO (22:36)
[2017-02-10] MEDS ORDERED: FUROSEMIDE40 MG PO (22:36)
[2017-02-10 22:45] VITALS: BP 102/60; BMI 41.4
--- NOTE | 2017-02-10 23:19 | NUR ---
PT CONVERTS BACK INTO SVT WITH HR 160. CALL TO GAYATRI. NOTIFIED OF CONSULT AND PRESENTING PROBLEM. NEW ORDERS RECEIVED TO START AMIODARONE 150 MG IV BOLUS NOW AND TO FOLLOW WITH AMIODARONE GTT @ 1 MG/MIN X 12 HOURS THEN DECREASE TO 0.5 MG/MIN. PT UPDATED ON POC AND VERBALIZES UNDERSTANDING.
--- NOTE | 2017-02-10 23:45 | NUR ---
AMIODARONE BOLUS STARTED AT THIS TIME, PT ATTEMPTING TO CONVERTS TO NSR ON MONITOR WITH PAC'S. HR SUSTAINING 90'S TO LOW 100'S. WILL MONITOR.
[2017-02-11] VITALS: BP 102/60
[2017-02-11 04:00] VITALS: BP 101/57
[2017-02-11 04:40] LABS: BASOPHILS 0.2 % (0-2); EOSINOPHILS 3.3 % (0-7); HEMATOCRIT 37.2 % (42.0-54.0); HEMOGLOBIN 12.1 g/dL (13.5-17.5); IMMATURE GRANULOCYTES 0.4 % (0-5); LYMPHOCYTES 18.5 % (15-50); MCH 27.9 pg (26.0-34.0); MCHC 32.5 g/dL (31.0-37.0); MCV 85.9 fL (80.0-100.0); MEAN PLATELET VOLUME 11.4 fL (7.4-10.4); MONOCYTES 5.9 % (2-11); NEUTROPHILS 71.7 % (40-80); PLATELET COUNT 216 10x3/uL (130-400); RBC 4.33 10x6/uL (4.20-6.10); RDW 15.3 % (11.5-14.5)
[2017-02-11 04:55] LABS: WBC 11.4 10x3/uL (4.8-10.8)
[2017-02-11 05:27] LABS: CALCIUM 8.5 mg/dL (8.5-10.1); CARBON DIOXIDE 30.9 mmol/L (21.0-32.0); CHLORIDE - SERUM 98 mmol/L (98-107); CREATINE KINASE 44 UL (21-232); CREATININE - SERUM 0.7 mg/dL (0.6-1.3); POTASSIUM - SERUM 3.5 mmol/L (3.5-5.1); SODIUM 136 mmol/L (136-145); UREA NITROGEN 8 mg/dL (7-18); eGFR NON AFRICAN AMERICAN > 90 mL/min (90-120)
[2017-02-11 05:28] LABS: CALC OSMOLALITY 274 mosm/kg (275-300); GLUCOSE 194 mg/dL (74-106); TROPONIN-I 0.134 ng/mL (0.000-0.060)
--- NOTE | 2017-02-11 07:00 | NUR ---
RECEIVED REPORT. ASSUMED CARE OF PATIENT. CALL LIGHT WITHIN REACH. PATIENT RESTING WITH EYES CLOSED, EASILY AROUSED. DENIES NEEDS. NO DISTRESS. CONTINUES ON AMIODARONE DRIP @ 33.3 ML/HR = 1MG/HR. NO DISTRESS. DENIES NEEDS AT THIS TIME.
[2017-02-11 08:45] VITALS: BP 109/85
--- NOTE | 2017-02-11 09:01 | NUR ---
RESTING IN BED AT THIS TIME. CONTINUE ON AMIODARONE DRIP. SR ON TELEMETRY. NO DISTRESS. FRESH ICE WATER PROVIDED. CALL LIGHT WITHIN REACH.
[2017-02-11 09:19] LABS: TROPONIN-I 0.111 ng/mL (0.000-0.060)
--- NOTE | 2017-02-11 09:41 | NUR ---
DR. MENDIETA AT BEDSIDE FOR AM ROUNDS.
--- NOTE | 2017-02-11 11:47 | NUR ---
AMIODARONE DRIP REDUCED TO 0.5MG/MIN = 16.7ML/MIN. NO SVT. ASSISTED WITH URINAL USE. NO DISTRESS.
[2017-02-11 12:40] VITALS: BP 120/55
[2017-02-11 13:07] VITALS: BMI 41.4
--- NOTE | 2017-02-11 14:34 | NUR ---
FSBS 333. 70/30 ADMINISTERED ORDERED AT THIS TIME.
[2017-02-11 16:24] VITALS: BP 103/49
[2017-02-11 20:52] VITALS: BP 110/51
--- NOTE | 2017-02-11 22:41 | NUR ---
PT RESTING IN BED. ROUSED UP EASILY FOR BEDTIME MEDS. LASIX GIVEN SIVP VIA RIGHT A/C. ASSISTED TO USE URINAL TO VOID. SEE SHIFT ASSESSMENT. CPOC.
[2017-02-12 01:06] VITALS: BP 110/79
[2017-02-12 04:00] VITALS: BP 119/66
--- NOTE | 2017-02-12 07:00 | NUR ---
RECEIVED REPORT. ASSUMED CARE OF PATIENT. CALL LIGHT WITHIN REACH. PATIENT LYING IN BED HAVING BLOOD DRAWN AT THIS TIME. SR ON TELEMETRY. DENIES NEEDS. NO DISTRESS. RESP EVEN AND UNLABORED.
[2017-02-12 07:19] LABS: BASOPHILS 0.2 % (0-2); EOSINOPHILS 0.3 % (0-7); HEMATOCRIT 42.5 % (42.0-54.0); HEMOGLOBIN 13.6 g/dL (13.5-17.5); IMMATURE GRANULOCYTES 0.3 % (0-5); LYMPHOCYTES 10.4 % (15-50); MCH 27.9 pg (26.0-34.0); MCV 87.1 fL (80.0-100.0); MEAN PLATELET VOLUME 11.2 fL (7.4-10.4); MONOCYTES 5.8 % (2-11); PLATELET COUNT 215 10x3/uL (130-400); RBC 4.88 10x6/uL (4.20-6.10); RDW 15.1 % (11.5-14.5)
[2017-02-12 07:25] LABS: HEMOGLOBIN A1C 9.2 % (4.8-6.0)
[2017-02-12 08:00] VITALS: BP 154/79
[2017-02-12 08:10] LABS: CALCIUM 9.4 mg/dL (8.5-10.1); CARBON DIOXIDE 35.2 mmol/L (21.0-32.0); CHLORIDE - SERUM 102 mmol/L (98-107); CHOL - HDL RATIO 4.6 ratio (2.3-4.9); CHOLESTEROL, TOTAL 197 mg/dL (0-200); CREATININE - SERUM 0.6 mg/dL (0.6-1.3); HDL CHOLESTEROL 43 mg/dL (32-96); LDL CHOLESTEROL 144 mg/dL (0-100); LDL-HDL RATIO 3.3 ratio (1.5-3.5); POTASSIUM - SERUM 3.4 mmol/L (3.5-5.1); SODIUM 144 mmol/L (136-145); TRIGLYCERIDE 52 mg/dL (30-200); UREA NITROGEN 10 mg/dL (7-18); eGFR NON AFRICAN AMERICAN > 90 mL/min (90-120)
[2017-02-12 08:15] LABS: CALC OSMOLALITY 282 mosm/kg (275-300)
[2017-02-12 08:17] LABS: GLUCOSE 48 mg/dL (74-106)
--- NOTE | 2017-02-12 08:33 | NUR ---
0815 LAB CALLS TO REPORT GLUCOSE OF 48. LAB WAS DRAWN AT 0715. PATIENT AT THIS TIME SITTING TO SIDE OF BED CONSUMING AM MEAL, DENIES ANY S/S HYPOGLYCEMIA. NO DISTRESS. WILL RECHECK FSBS 0915.
--- NOTE | 2017-02-12 09:32 | NUR ---
FSBS 113. PATIENT REFUSED 70/30 AT THIS TIME. STATES HE WOULD NOT TAKE ANY INSULIN AT HOME IF HE RECEIVED THIS RESULT. REQUESTING FSBS RECHECKED AT 1630 PRIOR TO HIM EATING DINNER.
--- NOTE | 2017-02-12 10:34 | NUR ---
ASSISTED PATIENT WITH URINAL. RESTING IN BED WITH EYES CLOSED AT THIS TIME. NO DISTRESS.
[2017-02-12 11:00] VITALS: BP 150/67
--- NOTE | 2017-02-12 12:05 | NUR ---
PATIENTS OWN COMPRESSION STOCKING REMOVED AND REAPPLIED. MEPILEX DRESSING TO LEFT LOWER MEDIAL CALF. NO DRAINAGE. OPEN AREA UNDER MEPILEX. PATIENT STATES FROM THE WOUND CLINIC SEES HIM WEEKLY. NO DISTRESS. PATIENT ASSISTED TO SIT TO SIDE OF BED AND WAITING FOR NOON MEAL AT THIS TIME.
[2017-02-12 15:04] VITALS: BP 152/68
[2017-02-12] MEDS ORDERED: K-DUR20 MEQ PO (16:05)
--- NOTE | 2017-02-12 17:40 | NUR ---
1700 20 GAUGE IV REMOVED FROM RIGHT AC. CATHETER TIP INTACT. NO BLEEDING FROM SITE. 2X2 GAUZE APPLIED AND SECURED WITH TAPE. 1715 DISCHARGE INSTRUCTIONS PROVIDED. PATIENT VERBALIZED UNDERSTANDING OF ALL INSTRUCTIONS PROVIDED. 1735 PATIENT LEFT UNIT WITH ALL PERSONAL BELONGINGS. PATIENT DISCHARGED TO HOME WITH FAMILY. PATIENT LEFT UNIT WITH PERSONAL PORTABLE OXYGEN, CELL PHONE AND CELL PHONE SHIELD INSTALLER. NO DISTRESS UPON LEAVING UNIT.
== END 2017-02-12 17:40 | disposition home or self-care (01) | DRG 314 ==
LOC: D.ER 19:09 → OBSVTIME 21:15 → D.M2 21:15
PROVIDERS: Family Medicine; ADMIT Family Medicine
DX: I95.9 Hypotension, unspecified (principal); I50.33 Acute on chronic diastolic (congestive) heart failure; I47.1 Supraventricular tachycardia; I11.0 Hypertensive heart disease with heart failure; E11.9 Type 2 diabetes mellitus without complications; J44.9 Chronic obstructive pulmonary disease, unspecified; I73.9 Peripheral vascular disease, unspecified; Z86.718 Personal history of other venous thrombosis and embolism; I25.10 Atherosclerotic heart disease of native coronary artery without angina pectoris; G47.33 Obstructive sleep apnea (adult) (pediatric); Z72.0 Tobacco use

== ENCOUNTER 2017-03-03 12:30 | Inpatient (IN) | payer MEDICAID ==
[~2017-03-03 12:30] MED LIST changes: +K-DUR20 MEQ PO
[2017-03-03 13:09] LABS: BASOPHILS 0.2 % (0-2); EOSINOPHILS 2.8 % (0-7); HEMATOCRIT 43.3 % (42.0-54.0); HEMOGLOBIN 13.9 g/dL (13.5-17.5); IMMATURE GRANULOCYTES 0.2 % (0-5); LYMPHOCYTES 18.4 % (15-50); MCH 28.1 pg (26.0-34.0); MCHC 32.1 g/dL (31.0-37.0); MCV 87.5 fL (80.0-100.0); MEAN PLATELET VOLUME 11.6 fL (7.4-10.4); MONOCYTES 5.5 % (2-11); NEUTROPHILS 72.9 % (40-80); PLATELET COUNT 224 10x3/uL (130-400); RBC 4.95 10x6/uL (4.20-6.10); RDW 15.1 % (11.5-14.5); WBC 14.1 10x3/uL (4.8-10.8)
[2017-03-03 13:28] LABS: ALBUMIN 3.3 g/dL (3.4-5.0); ALKALINE PHOSPHATASE 113 U/L (46-116); ALT (SGPT) 10 U/L (10-68); BILIRUBIN - TOTAL 0.73 mg/dL (0.2-1.3); CALC OSMOLALITY 283 mosm/kg (275-300); CALCIUM 9.3 mg/dL (8.5-10.1); CARBON DIOXIDE 33.1 mmol/L (21.0-32.0); CHLORIDE - SERUM 96 mmol/L (98-107); CREATININE - SERUM 0.8 mg/dL (0.6-1.3); POTASSIUM - SERUM 3.9 mmol/L (3.5-5.1); PROTEIN - SERUM 7.8 g/dL (6.4-8.2); SODIUM 137 mmol/L (136-145); UREA NITROGEN 15 mg/dL (7-18); eGFR NON AFRICAN AMERICAN > 90 mL/min (90-120)
[2017-03-03 13:29] LABS: GLUCOSE 264 mg/dL (74-106)
[2017-03-03 13:43] LABS: CKMB 0.8 U/L (0.0-3.6); CREATINE KINASE 52 UL (21-232); MAGNESIUM - SERUM 1.8 mg/dL (1.8-2.4)
[2017-03-03 13:44] LABS: TROPONIN-I < 0.017 ng/mL (0.000-0.060)
[2017-03-03 15:53] LABS: CKMB 0.5 U/L (0.0-3.6); CREATINE KINASE 48 UL (21-232); TROPONIN-I < 0.017 ng/mL (0.000-0.060)
--- NOTE | 2017-03-03 16:30 | NUR ---
TRANSFER FROM ER BY STRETCHER. OREINTED TO ROOM. CALL LIGHT IN REACH. WILL CONT. PLAN OF CARE.
--- NOTE | 2017-03-03 16:39 | NUR ---
RECIVED FROM ER TO ROOM 2118. ADMIT ASSESSMENT PER RN.
[2017-03-03 16:58] VITALS: BP 113/64; BMI 42.0
--- NOTE | 2017-03-03 17:30 | NUR ---
WITHOUT CHANGES OR DISTRESS NOTED AT THIS TIME. DENIES NEEDS
[2017-03-03 20:00] VITALS: BP 90/48
[2017-03-03 21:55] LABS: CKMB 0.8 U/L (0.0-3.6); CREATINE KINASE 48 UL (21-232); TROPONIN-I < 0.017 ng/mL (0.000-0.060)
--- NOTE | 2017-03-03 22:13 | NUR ---
INITIAL ROUNDS COMPLETED AT 1915 HRS. PT WATCHING TV. STATES HE NEDS TO URINATE AND HE CAN'T REACH HIS GROIN AREA. PT VOIDED 475CC OF YELLOW URINE WHEN STFF HELD URINAL. ASSESSMENT COMPELTED AT 2000 HRS. SR EPR CM HR 83. IV TO RAC AND LAC SL. O2 4LNC. LUNGS DIMINISHED IN BASES BILAT. HERNANDEZ. PT HAS OWN COMPLRESSION SOCKS ON. FEET WARM TO TOUCH WIHT BRISK CAP REFILL NOTED. 4TH AND 5TH DIGITS OF LFOOT AMPUTATED. PM FSBS 262. PT REFUSES HUMALOG S/S. 70/30 INSULIN GIVEN PER ORDRES. PM MEDS GIVEN. PT CURRENTLY WATCHING TV. WILL CONTINUE TO MONITOR. SR UP X2, CALL LIGHT WTHIN REACH.
[2017-03-04] VITALS: BP 112/62
--- NOTE | 2017-03-04 00:35 | NUR ---
PT RESTING WITH EYES CLOSED. RESP EVEN AND REGULAR. SR UP X2, CALL LIGHT WITHIN REACH.
--- NOTE | 2017-03-04 00:47 | NUR ---
PT HAVING INTERMITTENT UCAF HR IN 150'S. PM LOPRESSOR GIVEN.
--- NOTE | 2017-03-04 02:34 | NUR ---
PT RESTING WITH EYES CLOSED. RESP EVEN AND REGULAR. SR UP X2, CALL LIGHT WITHIN REACH.
[2017-03-04 03:06] LABS: BASOPHILS 0.1 % (0-2); EOSINOPHILS 2.4 % (0-7); HEMATOCRIT 38.4 % (42.0-54.0); HEMOGLOBIN 12.3 g/dL (13.5-17.5); IMMATURE GRANULOCYTES 0.3 % (0-5); LYMPHOCYTES 17.8 % (15-50); MCH 27.8 pg (26.0-34.0); MCV 86.9 fL (80.0-100.0); MEAN PLATELET VOLUME 11.4 fL (7.4-10.4); MONOCYTES 5.9 % (2-11); NEUTROPHILS 73.5 % (40-80); PLATELET COUNT 194 10x3/uL (130-400); RBC 4.42 10x6/uL (4.20-6.10); RDW 15.1 % (11.5-14.5); WBC 10.8 10x3/uL (4.8-10.8)
[2017-03-04 03:28] LABS: CALC OSMOLALITY 279 mosm/kg (275-300); CALCIUM 8.9 mg/dL (8.5-10.1); CARBON DIOXIDE 34.9 mmol/L (21.0-32.0); CHLORIDE - SERUM 100 mmol/L (98-107); CKMB 0.6 U/L (0.0-3.6); CREATINE KINASE 52 UL (21-232); CREATININE - SERUM 0.8 mg/dL (0.6-1.3); POTASSIUM - SERUM 4.1 mmol/L (3.5-5.1); SODIUM 137 mmol/L (136-145); TROPONIN-I < 0.017 ng/mL (0.000-0.060); UREA NITROGEN 12 mg/dL (7-18); eGFR NON AFRICAN AMERICAN > 90 mL/min (90-120)
[2017-03-04 03:29] LABS: GLUCOSE 204 mg/dL (74-106)
--- NOTE | 2017-03-04 04:22 | NUR ---
SR PER CM HR 84. PT RESTING WITH EYES CLOSED. RESP EVEN AND REGULAR. SR UP X2, CALL LIGHT WITHIN REACH AND BED ALARM ON.
--- NOTE | 2017-03-04 06:25 | NUR ---
VSS THROUGHOTU NIGHT. S R PER CM FOR PAST SEVERAL HOURS. AM FSBS 112. NO COVERAGE NEEDED. NEEDS MET; WILL CONTINUE TO MONITOR.
--- NOTE | 2017-03-04 07:30 | NUR ---
RECEIVED PT IN BED EYES CLOSED RESP UNLABORED NAD NOTED
[2017-03-04 08:00] VITALS: BP 123/71
[2017-03-04 11:24] VITALS: BP 165/69
--- NOTE | 2017-03-04 11:57 | NUR ---
FSBS 87 EATING LUNCH AT THIS TIME NAD NOTED
[2017-03-04 13:02] VITALS: BMI 28.0
[2017-03-04 16:00] VITALS: BP 96/59
--- NOTE | 2017-03-04 16:48 | NUR ---
FSBS 53 ORANGE JUICE GIVEN WITH SUGAR
--- NOTE | 2017-03-04 17:47 | NUR ---
REPEAT FSBS 82
--- NOTE | 2017-03-04 21:59 | NUR ---
INIITAL ROUNDS COMPLETEDA T 1914 HRS. PT RESTING WITH EYES CLOSED. RESP EVEN AND REGULAR. ASSESMENT COMPLETED AT 2004 HRS. VSS. SR PER CM HR 68. IV TO RAC SL. O2 4LNC. LUGS DIMINISHE DIN BASES BILAT. 4TH AND 5TH DIGITS OF L FOOT MISSING. PT'S OWN COMPLRESSIN HOSE IN USE. FEET WARM WITH PALPABLE PEDAL PULSES. PM FSBS 80. PT REFUSES PM 70/30. PT ARGUMENTATIVE ABOUT CHECKING BS AT THIS TIME. PM MEDS GIVEN. PT CURRENTLY RESTING WITH EYES CLOSED. RESP EVEN AND REGULAR. SR UP X2,CALL LIGHT WITHN REACH.
[2017-03-04 22:18] VITALS: BP 102/54
[2017-03-05] VITALS: BP 117/66
--- NOTE | 2017-03-05 00:12 | NUR ---
PT AWAKE;DENIES ANY DISCOMFORT. UP TO BR PER SELF. STATES HAS NO DIFFICULTY. WILL CONTINUE TO MONITOR.
--- NOTE | 2017-03-05 02:22 | NUR ---
PT RESTING WITH EYES CLOSED. RESP EVEN AND REGULAR. SR UP X2, CALL LIGHT WITHIN REACH.
[2017-03-05 04:00] VITALS: BP 106/74
--- NOTE | 2017-03-05 04:46 | NUR ---
ASSISTED PT FROM BR. GAIT STEADY. WILL CONTINUE TO MONITOR.
[2017-03-05 05:35] LABS: BASOPHILS 0.2 % (0-2); HEMATOCRIT 38.9 % (42.0-54.0); HEMOGLOBIN 12.5 g/dL (13.5-17.5); IMMATURE GRANULOCYTES 0.2 % (0-5); MCH 27.9 pg (26.0-34.0); MCHC 32.1 g/dL (31.0-37.0); MCV 86.8 fL (80.0-100.0); MEAN PLATELET VOLUME 11.1 fL (7.4-10.4); MONOCYTES 8.1 % (2-11); NEUTROPHILS 67.5 % (40-80); PLATELET COUNT 178 10x3/uL (130-400); RBC 4.48 10x6/uL (4.20-6.10); WBC 10.2 10x3/uL (4.8-10.8)
[2017-03-05 06:05] LABS: CALC OSMOLALITY 277 mosm/kg (275-300); CALCIUM 8.9 mg/dL (8.5-10.1); CARBON DIOXIDE 36.5 mmol/L (21.0-32.0); CHLORIDE - SERUM 101 mmol/L (98-107); CREATININE - SERUM 0.7 mg/dL (0.6-1.3); POTASSIUM - SERUM 3.9 mmol/L (3.5-5.1); SODIUM 139 mmol/L (136-145); UREA NITROGEN 13 mg/dL (7-18); eGFR NON AFRICAN AMERICAN > 90 mL/min (90-120)
[2017-03-05 06:06] LABS: GLUCOSE 102 mg/dL (74-106)
--- NOTE | 2017-03-05 06:29 | NUR ---
PT UP NUMEROUS TIMES DURING SHIFT. PT ARGUMENTATIVE AND UNCOOPERATIVE THIS AM. AM FSBS 102. NO COVERAGE NEEDED. NEEDS MET; WILL CONTINUE TO MONITOR.
--- NOTE | 2017-03-05 07:30 | NUR ---
RECEIVED PT IN BED EYES CLOSED RESP UNLABORED NAD NOTED
[2017-03-05 08:00] VITALS: BP 131/72
--- NOTE | 2017-03-05 11:29 | NUR ---
PT REFUSED FSBS STATED COME BACK AT SUPPER AND CHECK IT
[2017-03-05 12:00] VITALS: BP 99/57
[2017-03-05] MEDS ORDERED: PACERONE200 MG PO (13:05)
--- NOTE | 2017-03-05 17:13 | NUR ---
FSBS 43 ORANGE JUICE WITH 3 TSP SUGAR GIVEN EVENING MEAL SERVED WILL CONTINUE TOP MONITOR
--- NOTE | 2017-03-05 17:39 | NUR ---
PT REFUSES TO HAVE FSBS RECHECKED AFTER EVENING MEAL STATES MY SUGAR IS FINE AND I AM GOING HOME SOON YOU BRING MY PAPERS
--- NOTE | 2017-03-05 18:10 | NUR ---
FSBS 75 PT DRANK OJ WITH SUGar
--- NOTE | 2017-03-05 18:30 | NUR ---
REVIEWED DISCHARGE INSTRUCTIONS PT STATES UNDERSTANDING COPY GIVEN DCD CLYDE LOC TO RAC WITH IV CATHETER INTACT SITE FREE OF REDNESS OR EDEMA PT DISCHARGED HOME IN STABLE CONDITION WITH ALL PERSONAL BELONGINGS VIA W/C
--- NOTE | 2017-03-06 11:08 | CN ---
PATIENT NAME:YAZAN ANAYA MEDICAL RECORD: [id number] : 53 LOCATION:D. D.2118 ADMIT DATE: 03/04/17 ACCOUNT: [id number] CONSULTING PHYSICIAN: TOAN BROWNE MD REFERRING PHYSICIAN: ASHLEY CORREA MD DATE OF CONSULTATION: 03/03/2017 Cardiology Consultation HISTORY OF PRESENT ILLNESS: A 61-year-old gentleman with known history of coronary artery disease. He has history of atrial flutter/fibrillation, followed by Dr. Mayer. This usuallly has occurred with recurring episodes of obstructive pulmonary disease exacerbation. He has a longstanding history of obstructive pulmonary disease and smoking and was weaned off meds previously. Today, we just simply checking his blood pressure, might be tachycardic with irregular pulse, presented to the ER, would initially cardiovert with testing, but adequately back to SVT, started on Cordarone drip. Currently, has sinus rhythm. We are asked to see him concerning his cardiovascular status. PAST MEDICAL HISTORY: Includes: 1. History of obstructive pulmonary disease. 2. History of obstructive sleep apnea, on CPAP. 3. Diabetes mellitus. 4. Cardiomyopathy with diastolic dysfunction, olghr-is-yiablnr. 5. Peripheral vascular disease, status post amputation of toe. ALLERGIES: No known drug allergies. SOCIAL HISTORY: Still a smoker, nondrinker. Has some difficulty with ADLs. HOME MEDICATIONS: Typically include DuoNeb q.i.d., Brovana b.i.d., lisinopril 20 q. day, metoprolol 50 b.i.d., aspirin 81 q. day, Bumex 1 mg daily, potassium supplementation, Singulair 10 q.h.s., Zantac 150 b.i.d., Glucophage 1 g b.i.d., insulin per scale. REVIEW OF SYSTEMS: REVIEW OF SYSTEMS: The patient reports easy bruising but reports no swollen glands. The patient reports no fever, no night sweats, no significant weight gain, no significant weight loss. No significant exercise tolerance. The patient reports no dry eyes, no irritation, no vision change. Patient reports no difficulty hearing and no ear pain. Patient reports no frequent nose bleeds or nose and sinus problems. Patient reports on arm pain on exertion. No shortness of breath while lying down. No history of heart murmur. Patient reports no cough, no wheezing or coughing up blood. Patient reports no abdominal pain, no vomiting. Normal appetite. No diarrhea and not vomiting blood. No nausea and no constipation. Patient reports no incontinence. No difficulty urinating. No hematuria. No increased frequency. Patient reports no muscle aches. No weakness, no arthralgias, no back pain. No swelling of the extremities. Patient reports no abnormal mole, no jaundice, no rashes. Reports no loss of consciousness. No weakness and no numbness. No seizures, dizziness, or headaches. The patient reports no depression, no sleep disturbance, feeling safe in a relationship and no alcohol abuse. Patient reports on fatigue. Reports no runny nose or sinus pressure. No itching, no hives, and no frequent sneezing. CONSULT REPORT [id number] YAZAN ANAYA PHYSICAL EXAMINATION: GENERAL: Pleasant gentleman, in no acute distress, asymptomatic at this time. VITAL SIGNS: Blood pressure 113/64, pulse 64 and regular. HEENT: Normocephalic, atraumatic. NECK: No bruits noted. HEART: Tones are distant. No obvious murmurs. LUNGS: Prolonged expiratory phase, fair air excursion. ABDOMEN: Soft, nontender. EXTREMITIES: Pulses are 2+. There is 1+ edema. NEUROLOGIC: Grossly intact. IMPRESSION: Supraventricular tachycardia. Responded nicely to amiodarone. We will begin at low in this agent orally. I will continue IV loading overnight. Further recommendations based on clinical course. TRANSINT:[id number] Voice Confirmation ID: [id number] DOCUMENT ID: [id number] TOAN BROWNE MD at 1108 CC: [id number] DICTATION DATE: 03/03/171710 SOFTWARE PUBLISHER: 03/03/172125 DIS IN 03/05/[address] [facility] [address] [place] [address]
== END 2017-03-05 18:30 | disposition home or self-care (01) | DRG 309 ==
LOC: D.ER 12:30 → D.M2 15:12 → OBSVTIME 15:12 → D.M2 03-04 18:20
PROVIDERS: Family Medicine; ADMIT Family Medicine
DX: I47.1 Supraventricular tachycardia (principal); I42.9 Cardiomyopathy, unspecified; F17.203 Nicotine dependence unspecified, with withdrawal; I48.2 Chronic atrial fibrillation; I48.92 Unspecified atrial flutter; I25.10 Atherosclerotic heart disease of native coronary artery without angina pectoris; J44.9 Chronic obstructive pulmonary disease, unspecified; E11.65 Type 2 diabetes mellitus with hyperglycemia; I11.0 Hypertensive heart disease with heart failure; I73.9 Peripheral vascular disease, unspecified; G47.33 Obstructive sleep apnea (adult) (pediatric)

== ENCOUNTER 2017-04-30 09:38 | Inpatient (IN) | payer MEDICAID ==
[~2017-04-30] VITALS: Ht 182.9 cm; Wt 143.2 kg
[~2017-04-30 09:38] MED LIST changes: +PACERONE200 MG PO
[2017-04-30 10:13] LABS: BASOPHILS 0.4 % (0-2); EOSINOPHILS 3.8 % (0-7); HEMATOCRIT 39.5 % (42.0-54.0); HEMOGLOBIN 12.6 g/dL (13.5-17.5); IMMATURE GRANULOCYTES 0.2 % (0-5); LYMPHOCYTES 13.7 % (15-50); MCH 27.5 pg (26.0-34.0); MCHC 31.9 g/dL (31.0-37.0); MCV 86.2 fL (80.0-100.0); MEAN PLATELET VOLUME 10.8 fL (7.4-10.4); MONOCYTES 6.1 % (2-11); NEUTROPHILS 75.8 % (40-80); RBC 4.58 10x6/uL (4.20-6.10); RDW 15.1 % (11.5-14.5); WBC 8.1 10x3/uL (4.8-10.8)
[2017-04-30 10:15] LABS: PLATELET COUNT 217 10x3/uL (130-400)
[2017-04-30 10:21] LABS: ALBUMIN 3.2 g/dL (3.4-5.0); ALKALINE PHOSPHATASE 114 U/L (46-116); ALT (SGPT) 13 U/L (10-68); CALC OSMOLALITY 271 mosm/kg (275-300); CALCIUM 9.2 mg/dL (8.5-10.1); CARBON DIOXIDE 34.2 mmol/L (21.0-32.0); CHLORIDE - SERUM 96 mmol/L (98-107); CREATININE - SERUM 0.9 mg/dL (0.6-1.3); GLUCOSE 117 mg/dL (74-106); POTASSIUM - SERUM 4.1 mmol/L (3.5-5.1); PROTEIN - SERUM 7.5 g/dL (6.4-8.2); SODIUM 136 mmol/L (136-145); UREA NITROGEN 9 mg/dL (7-18); eGFR NON AFRICAN AMERICAN > 90 mL/min (90-120)
[2017-04-30 10:31] LABS: CREATINE KINASE 79 UL (21-232); PRO BNP 2119 pg/mL (0-125); TROPONIN-I < 0.017 ng/mL (0.000-0.060)
[2017-04-30] MEDS ORDERED: NOVOLOG MIX 70/10 ML SC ×3 (13:14→13:16)
[2017-04-30 16:20] VITALS: BP 109/50
[2017-04-30 18:54] VITALS: Ht 182.9 cm; Wt 143.2 kg
[2017-04-30 19:30] VITALS: BP 112/68
[2017-04-30 23:30] VITALS: BP 111/61
[2017-05-01 04:01] VITALS: BP 99/48
[2017-05-01 09:10] VITALS: BP 126/67
[2017-05-01 11:03] LABS: BASOPHILS 0 % (0-2); EOSINOPHILS 0 % (0-7); HEMATOCRIT 40.2 % (42.0-54.0); HEMOGLOBIN 12.6 g/dL (13.5-17.5); IMMATURE GRANULOCYTES 0.4 % (0-5); LYMPHOCYTES 8.1 % (15-50); MCH 27.2 pg (26.0-34.0); MCHC 31.3 g/dL (31.0-37.0); MCV 86.6 fL (80.0-100.0); MEAN PLATELET VOLUME 10.9 fL (7.4-10.4); MONOCYTES 3.6 % (2-11); NEUTROPHILS 87.9 % (40-80); PLATELET COUNT 182 10x3/uL (130-400); RBC 4.64 10x6/uL (4.20-6.10); RDW 15.2 % (11.5-14.5); WBC 7.5 10x3/uL (4.8-10.8)
[2017-05-01 11:12] LABS: ALKALINE PHOSPHATASE 108 U/L (46-116); ALT (SGPT) 11 U/L (10-68); BILIRUBIN - TOTAL 0.61 mg/dL (0.2-1.3); CALC OSMOLALITY 280 mosm/kg (275-300); CARBON DIOXIDE 31.4 mmol/L (21.0-32.0); CHLORIDE - SERUM 94 mmol/L (98-107); GLUCOSE 385 mg/dL (74-106); POTASSIUM - SERUM 4.5 mmol/L (3.5-5.1); PROTEIN - SERUM 7.4 g/dL (6.4-8.2); SODIUM 131 mmol/L (136-145); UREA NITROGEN 19 mg/dL (7-18); eGFR NON AFRICAN AMERICAN 80 mL/min (90-120)
[2017-05-01 13:10] VITALS: BP 96/55
[2017-05-01 16:29] VITALS: BP 116/75
[2017-05-01 20:00] VITALS: BP 119/68
[2017-05-02 04:00] VITALS: BP 142/83
[2017-05-02 05:21] LABS: BASOPHILS 0 % (0-2); EOSINOPHILS 0 % (0-7); HEMATOCRIT 39.9 % (42.0-54.0); HEMOGLOBIN 12.6 g/dL (13.5-17.5); IMMATURE GRANULOCYTES 0.4 % (0-5); LYMPHOCYTES 5.4 % (15-50); MCH 27.8 pg (26.0-34.0); MCHC 31.6 g/dL (31.0-37.0); MCV 88.1 fL (80.0-100.0); MEAN PLATELET VOLUME 11.8 fL (7.4-10.4); MONOCYTES 6.8 % (2-11); NEUTROPHILS 87.4 % (40-80); PLATELET COUNT 212 10x3/uL (130-400); RBC 4.53 10x6/uL (4.20-6.10); RDW 15.4 % (11.5-14.5)
[2017-05-02 05:26] LABS: WBC 10.2 10x3/uL (4.8-10.8)
[2017-05-02 05:51] LABS: ALBUMIN 3.1 g/dL (3.4-5.0); ALKALINE PHOSPHATASE 101 U/L (46-116); CALCIUM 9.5 mg/dL (8.5-10.1); CARBON DIOXIDE 31.1 mmol/L (21.0-32.0); CHLORIDE - SERUM 97 mmol/L (98-107); POTASSIUM - SERUM 4.9 mmol/L (3.5-5.1); PROTEIN - SERUM 7.4 g/dL (6.4-8.2); SODIUM 136 mmol/L (136-145); eGFR NON AFRICAN AMERICAN 80 mL/min (90-120)
[2017-05-02 05:59] LABS: ALT (SGPT) 15 U/L (10-68); CALC OSMOLALITY 281 mosm/kg (275-300); GLUCOSE 203 mg/dL (74-106); UREA NITROGEN 24 mg/dL (7-18)
[2017-05-02 07:01] LABS: MAGNESIUM - SERUM 2.1 mg/dL (1.8-2.4); PHOSPHOROUS 3.7 mg/dL (2.5-4.9)
[2017-05-02 08:05] VITALS: BP 138/79
[2017-05-02 11:54] VITALS: BP 144/57
[2017-05-02 15:58] VITALS: BP 128/64
[2017-05-02 20:00] VITALS: BP 121/73
[2017-05-03 04:00] VITALS: BP 128/77
[2017-05-03 05:12] LABS: BASOPHILS 0 % (0-2); EOSINOPHILS 0 % (0-7); HEMATOCRIT 43.1 % (42.0-54.0); HEMOGLOBIN 13.3 g/dL (13.5-17.5); IMMATURE GRANULOCYTES 0.3 % (0-5); LYMPHOCYTES 6.2 % (15-50); MCH 27.4 pg (26.0-34.0); MCHC 30.9 g/dL (31.0-37.0); MCV 88.9 fL (80.0-100.0); MONOCYTES 4.4 % (2-11); NEUTROPHILS 89.1 % (40-80); PLATELET COUNT 201 10x3/uL (130-400); RBC 4.85 10x6/uL (4.20-6.10); RDW 15.5 % (11.5-14.5); WBC 10.6 10x3/uL (4.8-10.8)
[2017-05-03 05:31] LABS: ALBUMIN 3.2 g/dL (3.4-5.0); ALKALINE PHOSPHATASE 93 U/L (46-116); BILIRUBIN - TOTAL 0.63 mg/dL (0.2-1.3); CALCIUM 9.2 mg/dL (8.5-10.1); CARBON DIOXIDE 36.7 mmol/L (21.0-32.0); CHLORIDE - SERUM 100 mmol/L (98-107); CREATININE - SERUM 0.9 mg/dL (0.6-1.3); POTASSIUM - SERUM 5.3 mmol/L (3.5-5.1); PROTEIN - SERUM 7.4 g/dL (6.4-8.2); SODIUM 140 mmol/L (136-145); UREA NITROGEN 26 mg/dL (7-18); eGFR NON AFRICAN AMERICAN > 90 mL/min (90-120)
[2017-05-03 05:32] LABS: ALT (SGPT) 22 U/L (10-68); CALC OSMOLALITY 283 mosm/kg (275-300); GLUCOSE 96 mg/dL (74-106)
[2017-05-03 09:33] VITALS: BP 137/84
[2017-05-03 13:29] VITALS: BP 112/63
[2017-05-03 16:30] VITALS: BP 115/63
[2017-05-03 20:00] VITALS: BP 128/79
[2017-05-04 04:00] VITALS: BP 135/81
[2017-05-04 06:38] LABS: BASOPHILS 0 % (0-2); EOSINOPHILS 0 % (0-7); HEMATOCRIT 43.3 % (42.0-54.0); HEMOGLOBIN 13.3 g/dL (13.5-17.5); IMMATURE GRANULOCYTES 0.5 % (0-5); LYMPHOCYTES 8.8 % (15-50); MCHC 30.7 g/dL (31.0-37.0); MEAN PLATELET VOLUME 11.7 fL (7.4-10.4); MONOCYTES 7.3 % (2-11); NEUTROPHILS 83.4 % (40-80); PLATELET COUNT 198 10x3/uL (130-400); RBC 4.92 10x6/uL (4.20-6.10); RDW 15.4 % (11.5-14.5)
[2017-05-04 06:40] LABS: WBC 7.9 10x3/uL (4.8-10.8)
[2017-05-04 06:42] LABS: ALBUMIN 3.1 g/dL (3.4-5.0); ALKALINE PHOSPHATASE 96 U/L (46-116); BILIRUBIN - TOTAL 0.75 mg/dL (0.2-1.3); CALCIUM 9.1 mg/dL (8.5-10.1); CARBON DIOXIDE 36.6 mmol/L (21.0-32.0); CHLORIDE - SERUM 96 mmol/L (98-107); PROTEIN - SERUM 7.2 g/dL (6.4-8.2); SODIUM 137 mmol/L (136-145); eGFR NON AFRICAN AMERICAN 80 mL/min (90-120)
[2017-05-04 06:43] LABS: ALT (SGPT) 28 U/L (10-68); CALC OSMOLALITY 290 mosm/kg (275-300); GLUCOSE 267 mg/dL (74-106); UREA NITROGEN 34 mg/dL (7-18)
[2017-05-04 09:38] VITALS: BP 142/87
[2017-05-04 13:12] VITALS: BP 105/60
[2017-05-04 17:01] VITALS: BP 107/65
[2017-05-04 20:36] VITALS: BP 123/61
[2017-05-04 23:43] VITALS: BP 129/81
[2017-05-05 04:15] VITALS: BP 142/68
[2017-05-05 06:47] LABS: BASOPHILS 0.1 % (0-2); EOSINOPHILS 0 % (0-7); HEMATOCRIT 43.7 % (42.0-54.0); HEMOGLOBIN 13.6 g/dL (13.5-17.5); IMMATURE GRANULOCYTES 0.4 % (0-5); MCH 27.5 pg (26.0-34.0); MCHC 31.1 g/dL (31.0-37.0); MCV 88.5 fL (80.0-100.0); MEAN PLATELET VOLUME 12.2 fL (7.4-10.4); MONOCYTES 6.1 % (2-11); NEUTROPHILS 87.4 % (40-80); PLATELET COUNT 199 10x3/uL (130-400); RBC 4.94 10x6/uL (4.20-6.10); RDW 15.5 % (11.5-14.5)
[2017-05-05 06:59] LABS: WBC 10.7 10x3/uL (4.8-10.8)
[2017-05-05 07:16] LABS: ALBUMIN 3.1 g/dL (3.4-5.0); ANION GAP 11.9 mmol/L (8-16); BILIRUBIN - TOTAL 0.73 mg/dL (0.2-1.3); CALCIUM 8.9 mg/dL (8.5-10.1); CARBON DIOXIDE 34.6 mmol/L (21.0-32.0); CREATININE - SERUM 1.1 mg/dL (0.6-1.3); POTASSIUM - SERUM 4.5 mmol/L (3.5-5.1); PROTEIN - SERUM 7.1 g/dL (6.4-8.2)
[2017-05-05 08:49] VITALS: BP 163/81
[2017-05-05] MEDS ORDERED: FLORAJEN3 CAPS460 MG PO (10:16)
[2017-05-05] MEDS ORDERED: OMNICEF300 MG PO (10:16)
[2017-05-05] MEDS ORDERED: MUCINEX DM ER1 EAC1 PO (10:16)
[2017-05-05] MEDS ORDERED: TESSALON PERLE100 MG PO (10:16)
[2017-05-05] MEDS ORDERED: PREDNISONE10 MG PO (10:17)
== END 2017-05-05 13:54 | disposition home health service (06) | DRG 291 ==
LOC: D.ER 09:38 → D.MS 11:24
PROVIDERS: Emergency Medicine; Internal Medicine Pulmonary Disease; ADMIT Family Medicine
DX: I11.0 Hypertensive heart disease with heart failure (principal); J96.20 Acute and chronic respiratory failure, unspecified whether with hypoxia or hypercapnia; J44.1 Chronic obstructive pulmonary disease with (acute) exacerbation; F17.203 Nicotine dependence unspecified, with withdrawal; I50.33 Acute on chronic diastolic (congestive) heart failure; Z99.81 Dependence on supplemental oxygen; G47.33 Obstructive sleep apnea (adult) (pediatric); Z91.19 Patient's noncompliance with other medical treatment and regimen; I48.91 Unspecified atrial fibrillation; E11.40 Type 2 diabetes mellitus with diabetic neuropathy, unspecified; E11.65 Type 2 diabetes mellitus with hyperglycemia; Z79.4 Long term (current) use of insulin; I73.9 Peripheral vascular disease, unspecified; Z89.422 Acquired absence of other left toe(s); Z86.718 Personal history of other venous thrombosis and embolism; I27.20 Pulmonary hypertension, unspecified; I25.10 Atherosclerotic heart disease of native coronary artery without angina pectoris; I87.2 Venous insufficiency (chronic) (peripheral)

== ENCOUNTER 2017-06-02 15:52 | Inpatient (IN) | payer MEDICAID ==
[~2017-06-02] VITALS: Ht 188 cm; Wt 135.5 kg
[~2017-06-02 15:52] MED LIST changes: +NOVOLOG MIX 70/10 ML SC
[2017-06-02 16:46] LABS: BASOPHILS 0.2 % (0-2); EOSINOPHILS 0.3 % (0-7); HEMATOCRIT 42.3 % (42.0-54.0); HEMOGLOBIN 13.7 g/dL (13.5-17.5); IMMATURE GRANULOCYTES 0.3 % (0-5); LYMPHOCYTES 11.4 % (15-50); MCH 27.8 pg (26.0-34.0); MCHC 32.4 g/dL (31.0-37.0); MCV 85.8 fL (80.0-100.0); MEAN PLATELET VOLUME 11.3 fL (7.4-10.4); MONOCYTES 3.8 % (2-11); PLATELET COUNT 195 10x3/uL (130-400); RBC 4.93 10x6/uL (4.20-6.10); WBC 12.6 10x3/uL (4.8-10.8)
[2017-06-02 17:04] LABS: ALBUMIN 3.2 g/dL (3.4-5.0); ALKALINE PHOSPHATASE 100 U/L (46-116); ALT (SGPT) 13 U/L (10-68); BILIRUBIN - TOTAL 0.68 mg/dL (0.2-1.3); CALC OSMOLALITY 272 mosm/kg (275-300); CALCIUM 9.4 mg/dL (8.5-10.1); CARBON DIOXIDE 31.5 mmol/L (21.0-32.0); CHLORIDE - SERUM 95 mmol/L (98-107); CREATININE - SERUM 0.8 mg/dL (0.6-1.3); PROTEIN - SERUM 7.1 g/dL (6.4-8.2); SODIUM 135 mmol/L (136-145); UREA NITROGEN 11 mg/dL (7-18); eGFR NON AFRICAN AMERICAN > 90 mL/min (90-120)
[2017-06-02 17:06] LABS: GLUCOSE 173 mg/dL (74-106)
[2017-06-02 19:00] VITALS: BP 143/64
[2017-06-02] MEDS ORDERED: NOVOLOG MIX 70/10 ML SQ (21:58)
[2017-06-02 23:01] VITALS: BP 143/64; BMI 39.9
[2017-06-03 04:00] VITALS: BP 139/72
[2017-06-03 08:26] VITALS: BP 106/50
[2017-06-03 11:40] VITALS: BP 133/72
[2017-06-03 14:27] VITALS: Ht 188 cm; Wt 135.5 kg
[2017-06-03 16:11] VITALS: BP 105/57
[2017-06-03 19:00] VITALS: BP 104/52
[2017-06-04 03:34] VITALS: BP 98/58
[2017-06-04 05:47] LABS: BASOPHILS 0.1 % (0-2); EOSINOPHILS 0 % (0-7); HEMATOCRIT 41.1 % (42.0-54.0); HEMOGLOBIN 13.1 g/dL (13.5-17.5); IMMATURE GRANULOCYTES 0.5 % (0-5); LYMPHOCYTES 7.6 % (15-50); MCH 26.9 pg (26.0-34.0); MCHC 31.9 g/dL (31.0-37.0); MCV 84.4 fL (80.0-100.0); MEAN PLATELET VOLUME 11.9 fL (7.4-10.4); MONOCYTES 5.9 % (2-11); NEUTROPHILS 85.9 % (40-80); PLATELET COUNT 192 10x3/uL (130-400); RBC 4.87 10x6/uL (4.20-6.10); RDW 15.1 % (11.5-14.5); WBC 11.1 10x3/uL (4.8-10.8)
[2017-06-04 06:00] LABS: CALCIUM 9.6 mg/dL (8.5-10.1); CARBON DIOXIDE 28.9 mmol/L (21.0-32.0); CHLORIDE - SERUM 98 mmol/L (98-107); SODIUM 135 mmol/L (136-145); eGFR NON AFRICAN AMERICAN 80 mL/min (90-120)
[2017-06-04 06:01] LABS: CALC OSMOLALITY 288 mosm/kg (275-300); GLUCOSE 361 mg/dL (74-106); POTASSIUM - SERUM 5.1 mmol/L (3.5-5.1); UREA NITROGEN 23 mg/dL (7-18)
[2017-06-04 08:32] VITALS: BP 122/72
[2017-06-04 11:24] VITALS: BP 106/61
[2017-06-04 15:46] VITALS: BP 118/61
[2017-06-04 20:00] VITALS: BP 100/54
[2017-06-05] VITALS: BP 111/48
[2017-06-05 04:00] VITALS: BP 124/76
[2017-06-05 06:32] LABS: BASOPHILS 0 % (0-2); EOSINOPHILS 0 % (0-7); HEMATOCRIT 40.5 % (42.0-54.0); HEMOGLOBIN 12.8 g/dL (13.5-17.5); IMMATURE GRANULOCYTES 0.5 % (0-5); LYMPHOCYTES 7.9 % (15-50); MCH 26.9 pg (26.0-34.0); MCHC 31.6 g/dL (31.0-37.0); MCV 85.3 fL (80.0-100.0); MEAN PLATELET VOLUME 11.6 fL (7.4-10.4); MONOCYTES 3.3 % (2-11); NEUTROPHILS 88.3 % (40-80); PLATELET COUNT 175 10x3/uL (130-400); RBC 4.75 10x6/uL (4.20-6.10); RDW 15.1 % (11.5-14.5); WBC 10.5 10x3/uL (4.8-10.8)
[2017-06-05 06:35] LABS: CALC OSMOLALITY 288 mosm/kg (275-300); CALCIUM 9.6 mg/dL (8.5-10.1); CARBON DIOXIDE 32.4 mmol/L (21.0-32.0); CHLORIDE - SERUM 99 mmol/L (98-107); GLUCOSE 303 mg/dL (74-106); POTASSIUM - SERUM 4.8 mmol/L (3.5-5.1); SODIUM 137 mmol/L (136-145); UREA NITROGEN 25 mg/dL (7-18); eGFR NON AFRICAN AMERICAN 80 mL/min (90-120)
[2017-06-05] MEDS ORDERED: PREDNISONE10 MG PO (07:44)
[2017-06-05] MEDS ORDERED: DOXYCYCLINE HY100 M2 PO (07:45)
[2017-06-05 07:55] VITALS: BP 146/81
[2017-06-05 12:00] VITALS: BP 114/64
== END 2017-06-05 13:12 | disposition home or self-care (01) | DRG 190 ==
LOC: D.ER 15:52 → D.M2 18:30
PROVIDERS: Emergency Medicine; Family Medicine
DX: J44.0 Chronic obstructive pulmonary disease with (acute) lower respiratory infection (principal); J18.9 Pneumonia, unspecified organism; E11.9 Type 2 diabetes mellitus without complications; I11.0 Hypertensive heart disease with heart failure; I50.9 Heart failure, unspecified; I73.9 Peripheral vascular disease, unspecified; Z72.0 Tobacco use; Z99.81 Dependence on supplemental oxygen

== ENCOUNTER 2017-07-04 12:52 | Inpatient (IN) | payer MEDICAID ==
--- NOTE | ~2017-07-04 | OP ---
PATIENT NAME: YAZAN ANAYA MEDICAL RECORD: [id number] :53 LOCATION:D.M2 D.2116 ADMISSION DATE:07/04/17 SURGEON: VENTURA BENSON MD DATE OF OPERATION: 07/07/2017 PROCEDURES: 1. PTCA stent LAD. 2. Left heart catheterization. 3. Selective coronary angiography. 4. Left ventriculogram. INDICATION: Angina and coronary artery disease. PROCEDURE IN DETAIL: After informed consent was obtained and after a detailed explanation of risks, benefits as well as alternative therapies, the patient elected to proceed with angiogram and angioplasty. The right radial area was prepped and draped in normal sterile fashion. Right radial artery was cannulated via modified Seldinger technique with placement of 6-Mongolian sheath. All catheters exchanged through this sheath. FINDINGS: The left ventriculogram was performed in standard 30-degree LIZARRAGA view, reveals preserved cardiac wall motion, ejection fraction 45% to 50%. SELECTIVE CORONARY ANGIOGRAPHY: 1. Left main showed no significant angiographic disease. 2. Left anterior descending has an 80% stenosis in the mid vessel. 3. Left circumflex has mild irregularities, but no flow-limiting stenosis. 4. Right coronary has mild irregularities, but no flow-limiting stenosis. PTCA STENT OF THE LAD: The stent used was a 2.5 x 14 mm Integrity. Result was 0% residual stenosis. OVERALL IMPRESSION: Successful percutaneous transluminal coronary angioplasty stent of the left anterior descending going from 80% initial stenosis to 0% residual. TRANSINT:[id number] Voice Confirmation ID: [id number] DOCUMENT ID: [id number] VENTURA BENSON MD at 1153 CC: [id number] DICTATION DATE: 07/07/17 1217 PATTERN FINISHER: 07/07/17 1240 DIS IN 07/10/17 [place] [id number] [place] [id number]
--- NOTE | ~2017-07-04 | HEMODYNAMI ---
PATIENT:YAZAN ANAYA MEDICAL RECORD: [id number] : 53 LOCATION:[facility] D.2116 ADMISSION DATE: 07/04/17 Generatedon:07/07/201712:16 Patient name: YAZAN ANAYA Patient #: [id number] SSN: DO B: 1955 Date of study: 07/07/2017 Page: Of Hemodynamic Procedure Report Patient Data Patient Demographics Procedure consent was obtained First Name: YAZAN Gender: Male Last Name: JACLYN : 1955 Middle Initial: SANTIAGO Age: 61 year(s) Patient #: [id number] Race: Additional ID: [id number] Contact details [address]: [address] [place] [address] [address] State: [place] City: [place] Zip code: [address] Past Medical History Allergies Allergen Reaction Date Comments Reported Other allergy 07/07/2017 Admission Admission Data Admission Date: 07/04/2017 Admission Time: 16:08 Room #: D.2116 Lab Results Lab Result Date: 07/07/2017 Lab Result Time: 0:00 Biochemistry Name Units Result Min Max BUN mg/dl 14 --(--*-)-- 7 18 Creatinine mg/dl 0.9 --(-*--)-- 0.6 1.3 CBC Name Units Result Min Max Hemoglobin g/dl 13 -*(----)-- 13.5 17.5 Procedure Procedure Types Cath Procedure Diagnostic Procedure LHC LH w/Coronaries PCI Procedure Coronary Stent Coronary Stent Initial Miscellaneous Procedures Procedure Description Procedure Date Procedure Date: 07/07/2017 Procedure Start Time: 12:03 Procedure End Time: 12:15 Procedure Staff Name Function Shashi Mayer MD Performing Physician Huma Epps RN Nurse Soheila Bowden RN Nurse Jennifer Maria RT Scrub Tish Birmingham RT Monitor Procedure Data Cath Procedure Fluoroscopy Diagnostic fluoroscopy Total fluoroscopy Time: 2.7 time: 2.7 min min Diagnostic fluoroscopy Total fluoroscopy dose: dose: 1031 mGy 1031 mGy Contrast Material Contrast Material Type Amount (ml) Isovue 300 88 Entry Location Entry Primary Successful Side Size Upsize Upsize Entry Closure [place] ccessful Closure Location (Fr) 1 (Fr) 2 (Fr) Remarks Device Remarks Radial Right 6 Fr Mechanical artery Short Compression Estimated blood loss: 10 ml Diagnostic catheters Device Type Used For End Catheter Placement DIAGNOSTIC [place] 110cm 5 Procedure Fr catheter ([id number]) Procedure Medications Medication Administration Route Dosage 0.9% NaCl I.V. 100 ml/hr Oxygen NC 2 l/min Lidocaine 2% added to field 20 Heparin Flush Bag added to field 2 bags (1000units/500ml NS) Fentanyl I.V. 50 mcg Versed I.V. 1 mg Radial Cocktail added to field 1 syringe (Verapomil 2mg/Nitro 400mcg/Heparin 1500units) Heparin Bolus I.V. 4000 units Hemodynamics Rest Pre Cath Intra NCS Post Cath Vital Signs Time Heart Resp SPO2 etCO2 NIBP (mmHg) Rhythm Pain Sedation Rate (ipm) (%) (mmHg) Status Level (bpm) 11:55:17 54 18 96 0 126/80(110) NSR 0 (11) 10(A) , No pain 11:59:35 56 20 93 0 117/73(95) NSR 0 (11) 10(A) , No pain 12:04:44 57 22 91 0 95/65(79) NSR 0 (11) 9(A) , No pain 12:08:52 54 22 92 0 114/65(95) NSR 0 (11) 9(A) , No pain 12:13:06 55 14 93 0 117/72(93) NSR 0 (11) 10(A) , No pain Medications Time Medication Route Dose Verified Delivered Reason Not es Effectiveness by by 11:54:29 0.9% NaCl I.V. 100ml/hr Shashi Parnell used for Leyla Bowden RN procedure 11:54:37 Oxygen NC 2 l/min Shashi Parnell Per physician Leyla Bowden RN 11:54:45 Lidocaine 2% added 20ml Shashi Danielle for local to vial Leyla Mayer MD anesthetic field 11:54:54 Heparin Flush added 2 bags Shashi Danielle used for Bag to Leyla Mayer MD procedure (1000units/500ml field NS) 11:59:34 Fentanyl I.V. 50 mcg Shashi Parnell for sedation Leyla Bowden RN 11:59:43 Versed I.V. 1 mg Shashi Parnell for sedation Leyla Bowden RN 11:59:53 Radial Cocktail added 1 Shashi christy (Verapomil to syringe Leyla Mayer MD vasodilation 2mg/Nitro field 400mcg/Heparin 1500units) 12:07:02 Heparin Bolus I.V. 4000 Shashi Parnell for shirley ified units Leyla Bowden RN anticoagulation by dr. mayer Procedure Log Time Note 11:25:14 Huma Epps RN sent for patient. Start room use. 11:25:16 Time tracking: Regular hours 11:25:20 Plan of Care:Hemodynamics will remain stable., Cardiac rhythm will remain stable., Comfort level will be maintained., Respiratory function will remain adequate., Patient/ family verbilizes understanding of procedure., Procedure tolerated without complication., Recovers from procedure without complications.. 11:40:40 Warm blankets applied, and willie hugger turned on for patient comfort. 11:40:40 Correct patient and procedure confirmed by team. 11:40:42 Signed procedure consent form obtained from patient. 11:40:59 H&P Date Dictated: 07/04/2017 Within 30 days and on chart.. 11:41:00 Pre-procedure instructions explained to patient. 11:41:04 Family in waiting room. 11:41:07 Patient NPO since Midnight. 11:41:24 Patient allergic to Other allergy 11:41:32 Is the patient allergic to Iodine/contrast media? No. 11:41:34 Was the patient premedicated? Yes 11:44:25 Snore? Yes 11:44:26 Sleep apnea? Yes 11:44:43 Patient diabetic? Yes. 11:44:45 If diabetic: On Metformin? Yes 11:44:48 If on Metformin: Last Dose? 07/05/2017 11:45:16 IV patent on arrival in right hand with 0.9% NaCl at KVO. 11:45:34 IV started by Huma Epps RN inleft forearm with a 22 gauge IV catheter with 0.9% NaCl at KVO. 11:46:22 Lab Result : BUN 14 mg/dl 11:46:22 Lab Result : Creatinine 0.9 mg/dl 11:46:22 Lab Result : Hemoglobin 13 g/dl 11:46:31 Lab results completed and on chart. 11:46:37 Right Radial area was prepped with chlora-prep and draped in sterile fashion 11:46:38 Alarms reviewed by R. N. 11:46:39 Sharps counted by scrub and verified by R.N. 11:46:40 Physician paged 11:54:08 Vital chart was started 11:54:29 0.9% NaCl 100ml/hr I.V. was administered by Soheila Bowden RN; used for procedure; 11:54:37 Oxygen 2 l/min NC was administered by Soheila Bowden RN; Per physician; 11:54:45 Lidocaine 2% 20ml vial added to field was administered by Shashi Mayer MD; for local anesthetic; 11:54:54 Heparin Flush Bag (1000units/500ml NS) 2 bags added to field was administered by Shashi Mayer MD; used for procedure; 11:59:21 Physician arrived 11:59:22 --------ALL STOP TIME OUT------ 11:59:25 Final Timeout: patient, procedure, and site verified with staff and physician. All members of the team are in agreement. 11:59:27 Right Radial & Right Groin site verified by team. 11:59:34 Fentanyl 50 mcg I.V. was administered by Soheila Bowden RN; for sedation; :59:38 Physical assessment completed. ASA score P 2 - A patient with mild systemic disease as per Shashi Mayer MD. 11:59:43 Versed 1 mg I.V. was administered by Soheila Bowden RN; for sedation; 11:59:43 Sedation plan: IV Moderate Sedation Medication:Versed, Fentanyl 11:59:51 Use device set Radial Dx or PCI 11:59:53 Radial Cocktail (Verapomil 2mg/Nitro 400mcg/Heparin 1500units) 1 syringe added to field was administered by Shashi Mayer MD; for vasodilation; 11:59:55 ACIST Syringe (90245) opened to sterile field. 11:59:55 Medline Cath Pack ([id number]) opened to sterile field. 11:59:56 Bag Decanter (2002) opened to sterile field. 11:59:57 SHEATH 6FR Slender ([id number]) opened to sterile field. 11:59:59 DIAGNOSTIC WIRE .035 260cm J wire (204913) opened to sterile field. 12:00:01 ACIST Hand Control (27260) opened to sterile field. 12:00:04 ACIST Manifold (88270) opened to sterile field. 12:00:04 Tegaderm 4 x 4 (1626W) opened to sterile field. 12:00:05 MBrace Wrist Support ([id number]) opened to sterile field. 12:00:10 NEEDLE Cook 21G 4cm Radial (H28609) opened to sterile field. 12:02:32 Zero performed for pressure channel P1 12:02:41 Zero performed for pressure channel P1 12:02:47 Zero performed for pressure channel P1 12:02:57 Procedure started. 12:02:58 Full Disclosure recording started 12:03:04 Local anesthetic to right radial artery with Lidocaine 2% by Shashi Mayer MD.INITIAL ACCESS ONLY 12:03:24 A 6 Fr Short sheath was inserted into the Right Radial artery 12:03:46 A DIAGNOSTIC [place] 110cm 5 Fr catheter (270136) was advanced over the wire and used for Procedure. 12:04:09 LV angiography performed. 12:04:22 EF : 50 % 12:04:42 LCA angiography performed. 12:05:20 RCA angiography performed. 12:06:11 Catheter removed. 12:06:28 INFLATOR Merit BasixCompak (GM7409) opened to sterile field. 12:07:02 Heparin Bolus 4000 units I.V. was administered by Soheila Bowden RN; for anticoagulation; verified by dr. mayer 12:07:05 GUIDE 6FR XBLAD 3.5 catheter (02025728) opened to sterile field. 12:07:10 Proceeding to intervention. 12:07:41 6 Fr XBLAD3.5 guide catheter was inserted over the wire 12:08:30 CHOICE PT Extra Support 182cm wire ([id number]) opened to sterile field. 12:08:47 extra support wire advanced. 12:08:49 Wire advanced across lesion. 12:10:48 Inflation Number: 1 A INTEGRITY RX 2.5 x 14 stent ([id number]) was prepped and advanced across the Mid LAD. The stent was deployed at 17 ANKITA for 0:10 (min:sec). 12:11:01 Wire removed. 12:11:01 Guide catheter removed. 12:11:10 TR BAND Large (DIE64ADP) opened to sterile field. 12:12:29 Sheath removed intact; hemostasis achieved with Mechanical Compression to the Right Radial artery. 12:12:33 Procedure ended.(Physican Out) 12:12:38 Fluoroscopy time 02.70 minutes. 12:12:44 Fluoroscopy dose: 1031 mGy 12:12:44 Flurop Dose total: 1031 12:12:49 Contrast amount:Isovue 300 88ml. 12:12:50 Sharps counted by scrub and verified by R.N. 12:12:54 TR band inflated with 13cc of air. 12:12:55 Insertion/operative site no bleeding no hematoma. 12:12:57 Post Procedure Pulses reassessed and unchanged 12:13:00 Post procedure rhythm: unchanged. 12:13:03 Estimated blood loss: 10 ml 12:13:05 Post procedure instruction explained to patient.Patient verbalizes understanding. 12:13:41 Procedure type changed to Cath procedure, Diagnostic procedure, LHC, LHC w/Coronaries, PCI procedure, Coronary Stent, Coronary Stent Initial, Miscellaneous Procedures 12:13:59 Vital chart was stopped 12:14:01 See physician's report for complete and final results. 12:14:20 Report given to [facility]. 12:14:58 Patient transfered to [facility] with Stretcher. 12:15:00 Procedure ended. 12:15:00 Full Disclosure recording stopped 12:15:04 End room use (Document Last) Intervention Summary Intervention Notes Time ActionType Lesion and Equipment Action# Pressure Duration Attributes Used 12:10:48 Place stent Mid LAD INTEGRITY RX 1 17 00:10 2.5 x 14 stent ([id number]) Device Usage Item Name Manufacture Quantity Catalog Number Hospital Part Current Mini mal Lot# / Charge Number Stock Stock Serial# Code ACIST Acist 1 65000 586465 035295 650041 20 Syringe [place] (85408) Coupa Software Inc Medline Cath Cardinal 1 [id number] 142601 70302 609046 5 Pack Health ([id number]) Bag Decanter Microtek 1 246281 23744 788642 5 () Medical Inc. SHEATH 6FR Terumo 1 [id number] 230078 232001 355940 40 Slender ([id number]) DIAGNOSTIC [facility] [place] 1 268422 104478 913492 489479 30 WIRE .035 260cm J wire (158448) ACIST Hand Acist 1 55281 151488 309983 532992 5 Control Medical (19408) Systems Inc ACIST Acist 1 86887 774301 266848 872305 5 Manifold Medical (40342) Systems Inc Tegaderm 4 x 3M 1 1626W 166849 624304 903581 5 4 (1626W) MBrace Wrist Advanced 1 140-0250-00 246229 32933 218832 5 Support Vascular (090044265) Dynamics NEEDLE Cook Cook Medical 1 [id number] 603214 048956 965528 5 21G 4cm Radial (A32078) DIAGNOSTIC Terumo 1 405013 376840 273326 436902 5 [place] 110cm 5 Fr catheter (877765) INFLATOR Brandfitters 1 NB8979 516951 681927 341332 15 [facility] Medical BasixCompak (KO2045) GUIDE 6FR Cardinal 1 [id number] 072556 237593 452329 10 XBLAD 3.5 Health catheter (77019656) CHOICE PT [place] 1 [id number] 459205 918924 780771 5 Extra Scientific Support 182cm wire (2911545N6) INTEGRITY RX Medtronic 1 [id number] 596055 149809 772441 5 [id number] 2.5 x 14 stent ([id number]) TR BAND Terumo 1 [id number] 295752 661458 374189 40 Large ([id number]) Signature Audit Mazon Stage Time Signature Unsigned Intra-Procedure 07/07/2017 Tish Birmingham 12:16:22 PM RT(R) Signatures Monitor : Tish Birmingham Signature : RT Date : Time : [facility] [address] [place] [address]
--- NOTE | ~2017-07-04 | EC ---
PATIENT:YAZAN ANAYA DATE OF SERVICE: 07/04/17 SEX: M MEDICAL RECORD: [id number] DATE OF : 53 LOCATION:D. D.211 AGE OF PATIENT: 61 ADMISSION DATE: 07/04/17 REFERRING PHYSICIAN: INTERPRETING PHYSICIAN: VENTURA MAYER MD ECHOCARDIOGRAM REPORT ECHO CHARGES 4 ECHO COMPLETE CLINICAL DIAGNOSIS: SOB ECHOCARDIOGRAPHIC MEASUREMENTS (adult normal given) AC root (d.<3.7cm) 4.6 cm LV Septum d (<1.2 cm> 1.1 cm Valve Excursion 2.5 cm LV Septum (systole) 1.6 cm Left Atria (s.<4.0cm> 4.1 cm LVPW d(<1.2cm) 1.1 cm RV (d.<2.3cm) 3.5 cm LVPW (sytole) 1.8 cm LV diastole(<5.6CM) 5.0 cm MV E-F(>70mm/sec) cm LV systole 2.7 cm LVOT Diameter 2.0 cm MV exc.(>10mm) cm Est.ejection fraction (50-75%) % Pericardial Effusion N DOPPLER: LVIT cm/sec A 103 cm/sec E 84.0 cm/sec LA cm/sec RVSP mmHg LVOT 104 cm/sec AOP1/2T m/s Asc. Ao 136 cm/sec RVOT 76.0 cm/sec RA cm/sec PA 90.0 cm/sec AV Gradient Peak 7.4 mmHg AV Mean 4.1 mmHg AV Area 2.6 cm MV Gradient Peak 5.1 mmHg MV Mean 1.7 mmHg MV Area cm COMMENTS: Placement Manager: Rick STERNOE Branch Logistics Supervisor: 1 Dr. Mayer TAPE# PACS DATE OF SERVICE: 07/05/2017 DATE OF SERVICE: 07/05/2017 ECHOCARDIOGRAM FINDINGS: 1. Left ventricular chamber size is within normal limits. Left ventricular systolic function is mildly reduced, overall ejection fraction is 40%. 2. Left atrium is enlarged at 4.1 cm. Right atrium and right ventricle chamber ECHOCARDIOGRAM REPORT [id number] YAZAN ANAYA sizes are as well mildly dilated. 3. Valvular structures have normal structure and motion. 4. Doppler interrogation only reveals trace tricuspid regurgitation, no other valvular insufficiency or stenosis. Pulmonary systolic pressure is normal, estimated at 30 mmHg. 5. No evidence of pericardial effusion or left ventricular thrombus. TRANSINT:[id number] Voice Confirmation ID: [id number] DOCUMENT ID: [id number] VENTURA MAYER MD at 1148 CC: [id number] DICTATION DATE: 07/05/17 1642 FIRER RETORT: 07/05/17 1842 ADM IN [facility] [address] [place] [id number]
--- NOTE | ~2017-07-04 | DS ---
PATIENT:YAZAN ANAYA :53 MEDICAL RECORD: [id number] DISCHARGE SUMMARY ADMISSION DATE: 07/04/17 DISCHARGE DATE: 07/10/17 DATE OF SERVICE: 07/10/2017 DIAGNOSES: 1. Angina. 2. Coronary artery disease. 3. Percutaneous transluminal coronary angioplasty stent this admission. 4. Chronic obstructive pulmonary disease. 5. Lower extremity edema. 6. Congestive heart failure, chronic systolic dysfunction. 7. Cardiomyopathy, ejection fraction of 40%. HOSPITAL COURSE: This is a gentleman who presents with anginal symptomatology as well as fluid overload, heart failure symptomatology as well as COPD exacerbation. He underwent IV antibiotics for presumed bronchitis. His COPD resolved with nebulization treatments as well as the antibiotics and steroids. He had significant diuresis with IV Lasix. Ejection fraction was found to be 40% by echocardiogram. He underwent cardiac catheterization revealing significant disease of the LAD, underwent successful PTCA stent of the LAD, had no further heart failure symptomatology and no further anginal symptomatology. He was discharged home with no change in his medications other than the addition of Plavix to the medical regimen. He will follow up with [facility] in 1 month. TRANSINT:[id number] Voice Confirmation ID: [id number] DOCUMENT ID: [id number] VENTURA BENSON MD at 1153 CC: [id number] DICTATION DATE: 07/10/17 1110 MATTRESS INSPECTOR: 07/10/17 1321 DIS IN 07/10/17 [place] [address]
--- NOTE | ~2017-07-04 | HP ---
PATIENT: YAZAN WALTON MEDICAL RECORD: [id number] ACCOUNT: [id number] LOCATION:[facility].2116 : 53 ADMISSION DATE: 07/04/17 HISTORY AND PHYSICAL EXAMINATION DIAGNOSES: 1. Angina. 2. Abnormal ECG. 3. Shortness of breath. 4. Pulmonary edema. 5. Lower extremity edema. 6. Chronic obstructive pulmonary disease. 7. Smoking history. 8. Insulin-dependent diabetes. HISTORY OF PRESENT ILLNESS: Mr. Walton presents with chest discomfort. EKG suggests ongoing ischemia. He has not had history of ischemic heart disease, not had workup for ischemic heart disease. Chest x-ray is compatible with pulmonary edema. His main complaint is shortness of breath. He has a history of COPD. PHYSICAL EXAMINATION: GENERAL APPEARANCE: Well-nourished, well-developed, appears stated age. Level of distress, comfortable. PSYCHIATRIC: Mental status, alert, normal affect. Orientation, oriented to time, place and person. EYES: Lids and conjunctiva, noninjected. No discharge, no pallor. ENT: Lips, teeth, gums, normal dentition. Oropharynx, no cyanosis, no pallor. NECK: Carotid arteries, bilateral normal upstroke, no bruits, no thrills. JUGULAR VEINS: No jugular venous pressure or distention. CERVICAL LYMPH NODES: Nontender, nonenlarged. THYROID: Not enlarged. Nontender. No nodules. LUNGS: Respiratory effort, unlabored. CHEST: Normal curvature. No thoracic deformity. No chest wall tenderness. Percussion, resonant. Auscultation, clear. No wheezes, no rales, no rhonchi. CARDIOVASCULAR: Precordial exam, nondisplaced. No heaves or pericardial thrills. Rate and rhythm, regular. Heart sounds, normal S1, normal S2. No S3, no gallop, no rub. Systolic murmur, not heard. Diastolic murmur, not heard. EXTREMITIES: No cyanosis, no edema. Peripheral pulses, full and equal in all extremities, except as noted. No bruits appreciated. ABDOMEN: Soft, nondistended. Normal aorta. No bruit. Nontender. No masses. Liver, nontender, no hepatomegaly. Spleen, nontender, no splenomegaly. MUSCULOSKELETAL: No joint tenderness. No joint swelling. No erythema. NEUROLOGICAL: Normal gait, normal strength, normal tone. SKIN: Warm and dry. REVIEW OF SYSTEMS: The patient reports easy bruising but reports no swollen glands. The patient reports no fever, no night sweats, no significant weight gain, no significant weight loss. No significant exercise tolerance. The patient reports no dry eyes, no irritation, no vision change. Patient reports no difficulty hearing and no ear pain. Patient reports no frequent nose bleeds or nose and sinus problems. Patient reports on arm pain on exertion. No shortness of breath while lying down. No history of heart murmur. Patient reports no cough, no wheezing or coughing up blood. Patient reports no abdominal pain, no vomiting. Normal appetite. No diarrhea and not vomiting HISTORY AND PHYSICAL [id number] YAZAN WALTON blood. No nausea and no constipation. Patient reports no incontinence. No difficulty urinating. No hematuria. No increased frequency. Patient reports no muscle aches. No weakness, no arthralgias, no back pain. No swelling of the extremities. Patient reports no abnormal mole, no jaundice, no rashes. Reports no loss of consciousness. No weakness and no numbness. No seizures, dizziness, or headaches. The patient reports no depression, no sleep disturbance, feeling safe in a relationship and no alcohol abuse. Patient reports on fatigue. Reports no runny nose or sinus pressure. No itching, no hives, and no frequent sneezing. OVERALL IMPRESSION: Chest pain with abnormal ECG, most likely he has ischemic heart disease. Pulmonary edema. At this time, we will admit for diuresis. This will help his lower extremity edema as well. Plan for cardiac catheterization when his respiratory status improves. TRANSINT:[id number] Voice Confirmation ID: [id number] DOCUMENT ID: [id number] VENTURA BENSON MD at 1148 CC: [id number] DICTATION DATE: 07/04/[address] MANAGER: 07/04/17 1547 [place] [address]
[~2017-07-04 12:52] MED LIST changes: +DOXYCYCLINE HY100 M2 PO; +NOVOLOG MIX 70/10 ML SQ
[2017-07-04 14:23] LABS: BASOPHILS 0.1 % (0-2); EOSINOPHILS 3.9 % (0-7); HEMATOCRIT 41.8 % (42.0-54.0); HEMOGLOBIN 13.7 g/dL (13.5-17.5); IMMATURE GRANULOCYTES 0.3 % (0-5); LYMPHOCYTES 20.4 % (15-50); MCH 27.6 pg (26.0-34.0); MCHC 32.8 g/dL (31.0-37.0); MCV 84.3 fL (80.0-100.0); MEAN PLATELET VOLUME 10.7 fL (7.4-10.4); MONOCYTES 9.4 % (2-11); NEUTROPHILS 65.9 % (40-80); RBC 4.96 10x6/uL (4.20-6.10); RDW 15.9 % (11.5-14.5); WBC 13.7 10x3/uL (4.8-10.8)
[2017-07-04 14:23] LABS: APPEARANCE CLEAR (CLEAR); BILIRUBIN NEGATIVE (NEGATIVE); COLOR YELLOW (YELLOW); GLUCOSE NEGATIVE (NEGATIVE); KETONE NEGATIVE (NEGATIVE); NITRITE NEGATIVE (NEGATIVE); PROTEIN NEGATIVE (NEGATIVE); UROBILINOGEN NORMAL (NORMAL)
[2017-07-04 14:24] LABS: BACTERIA FEW /hpf (NONE SEEN); EPITHELIAL CELLS OCC /hpf (0-5); RED CELLS - URINE 0-5 /hpf (0-5); WHITE CELLS - URINE OCC /hpf (0-5)
[2017-07-04 14:24] LABS: PLATELET COUNT 251 10x3/uL (130-400)
[2017-07-04 14:33] LABS: APTT 29.9 SECONDS (22.8-39.4); INR 1.08 (0.85-1.17); PROTIME 13.6 SECONDS (11.6-15.0)
[2017-07-04 14:49] LABS: ALBUMIN 3.3 g/dL (3.4-5.0); ALKALINE PHOSPHATASE 104 U/L (46-116); ALT (SGPT) 17 U/L (10-68); BILIRUBIN - TOTAL 0.64 mg/dL (0.2-1.3); CARBON DIOXIDE 33.4 mmol/L (21.0-32.0); CHLORIDE - SERUM 101 mmol/L (98-107); CREATININE - SERUM 0.6 mg/dL (0.6-1.3); POTASSIUM - SERUM 3.4 mmol/L (3.5-5.1); PRO BNP 539 pg/mL (0-125); PROTEIN - SERUM 7.4 g/dL (6.4-8.2); SODIUM 140 mmol/L (136-145); UREA NITROGEN 7 mg/dL (7-18); eGFR NON AFRICAN AMERICAN > 90 mL/min (90-120)
[2017-07-04 14:50] LABS: CALC OSMOLALITY 272 mosm/kg (275-300); TROPONIN-I < 0.017 ng/mL (0.000-0.060)
[2017-07-04 14:52] LABS: GLUCOSE 32 mg/dL (74-106)
[2017-07-04 20:00] VITALS: BP 102/62
[2017-07-05 04:00] VITALS: BP 99/54
[2017-07-05 05:42] VITALS: BP 102/62; BMI 40.1
[2017-07-05 09:10] VITALS: BP 108/57
[2017-07-05 09:58] VITALS: BMI 40.0
[2017-07-05 12:16] VITALS: BP 106/65
[2017-07-05 16:45] VITALS: BP 122/76
[2017-07-05 20:00] VITALS: BP 88/53
[2017-07-06 07:44] VITALS: BP 118/67
[2017-07-06 10:00] LABS: BASOPHILS 0.1 % (0-2); EOSINOPHILS 1.3 % (0-7); HEMATOCRIT 40.7 % (42.0-54.0); IMMATURE GRANULOCYTES 0.4 % (0-5); LYMPHOCYTES 18.9 % (15-50); MCH 27.7 pg (26.0-34.0); MCHC 31.9 g/dL (31.0-37.0); MEAN PLATELET VOLUME 10.4 fL (7.4-10.4); MONOCYTES 6.9 % (2-11); NEUTROPHILS 72.4 % (40-80); PLATELET COUNT 208 10x3/uL (130-400); RBC 4.69 10x6/uL (4.20-6.10); RDW 15.7 % (11.5-14.5); WBC 10.9 10x3/uL (4.8-10.8)
[2017-07-06 10:12] LABS: MCV 86.8 fL (80.0-100.0)
[2017-07-06 10:24] LABS: CALCIUM 8.9 mg/dL (8.5-10.1); CARBON DIOXIDE 39.8 mmol/L (21.0-32.0); CHLORIDE - SERUM 98 mmol/L (98-107); POTASSIUM - SERUM 3.7 mmol/L (3.5-5.1); SODIUM 139 mmol/L (136-145)
[2017-07-06 10:28] LABS: CALC OSMOLALITY 287 mosm/kg (275-300); CREATININE - SERUM 0.9 mg/dL (0.6-1.3); GLUCOSE 267 mg/dL (74-106); UREA NITROGEN 14 mg/dL (7-18); eGFR NON AFRICAN AMERICAN > 90 mL/min (90-120)
[2017-07-06 12:13] VITALS: BP 119/70
[2017-07-06 15:17] VITALS: BP 112/68
[2017-07-06 20:00] VITALS: BP 127/80
[2017-07-07 04:00] VITALS: BP 110/68
[2017-07-07 07:28] VITALS: BP 103/52
[2017-07-07 11:27] VITALS: BP 106/59
[2017-07-07 20:00] VITALS: BP 107/51
[2017-07-08 00:51] VITALS: BP 106/66
[2017-07-08 04:32] VITALS: BP 93/58
[2017-07-08 07:54] VITALS: BP 100/65
[2017-07-08 11:28] VITALS: BP 104/58
[2017-07-08 15:22] VITALS: BP 130/64
[2017-07-08 22:15] VITALS: BP 112/61
[2017-07-09 01:30] VITALS: BP 121/71
[2017-07-09 06:20] VITALS: BP 113/93
[2017-07-09 08:40] VITALS: BP 95/52
[2017-07-09 12:06] VITALS: BP 77/49
[2017-07-09 16:29] VITALS: BP 94/46
[2017-07-09 20:00] VITALS: BP 122/64
[2017-07-10] VITALS: BP 104/46
[2017-07-10 04:00] VITALS: BP 115/61
[2017-07-10 07:48] VITALS: BP 109/60
[2017-07-10 10:38] VITALS: BP 112/64
[2017-07-10] MEDS ORDERED: PLAVIX75 MG PO (14:03)
== END 2017-07-10 14:49 | disposition home health service (06) | DRG 248 ==
LOC: D.ER 12:52 → D.EDHOLD 16:08 → D.M2 16:08
PROVIDERS: Family Medicine; Internal Medicine Interventional Cardiology
PROC: 02703DZ Dilation of Coronary Artery, One Artery with Intraluminal Device, Percutaneous Approach (ICD-10-PCS; principal; 2017-07-07 11:00)
DX: I25.10 Atherosclerotic heart disease of native coronary artery without angina pectoris (principal); J81.0 Acute pulmonary edema; J44.9 Chronic obstructive pulmonary disease, unspecified; E11.9 Type 2 diabetes mellitus without complications

== ENCOUNTER 2017-07-22 03:50 | Inpatient (IN) | payer MEDICAID ==
[~2017-07-22] VITALS: Ht 180.3 cm; Wt 145.1 kg
--- NOTE | ~2017-07-22 | CN ---
PATIENT NAME:YAZAN ANAYA MEDICAL RECORD: [id number] : 53 LOCATION:D. D.2138 ADMIT DATE: 07/22/17 ACCOUNT: [id number] CONSULTING PHYSICIAN: NEGIN ARREDONDO MD REFERRING PHYSICIAN: ASHLEY CORREA MD DATE OF CONSULTATION: 07/22/2017 CONSULT REQUESTING PHYSICIAN: Ashley Correa MD REASON FOR CONSULTATION: Pneumonia, possible pulmonary edema. HISTORY OF PRESENT ILLNESS: Mr. Anaya is a 61-year-old gentleman, very well known to our service who has underlying COPD and obstructive sleep apnea. According to the patient for the last 2-3 days, he is coughing, worsening shortness of breath. He also had episode of wheezing. The patient came into the ER. On evaluation, he was found to have bilateral infiltrate and mildly elevated proBNP. The patient denies fever and chills. The sputum is not very productive. REVIEW OF SYSTEMS: Mainly in the history of present illness. PAST MEDICAL HISTORY: 1. COPD. 2. Hypertension. 3. Congestive heart failure. 4. Coronary artery disease. 5. Peripheral arterial disease. 6. Chronic hypoxic respiratory failure. 7. Type 2 diabetes mellitus with neuropathy. 8. History of deep venous thrombosis. 9. History of atrial fibrillation and flutter. 10. Diastolic congestive heart failure. 11. Mild pulmonary hypertension with a right ventricular systolic pressure of 39. 12. Gastroesophageal reflux disease. 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 ALLERGIES: There are no known drug allergies. MEDICATIONS: [employer] was reviewed. PERSONAL SOCIAL HISTORY: The patient is a current everyday smoker. He is a nondrinker. FAMILY HISTORY: Significant for lung disease and cancer. PHYSICAL EXAMINATION: GENERAL: Now, the patient is lying comfortably in bed. He is not in acute distress. VITAL SIGNS: The blood pressure 134/68, pulse is 79, respirations 17, temperature 98.2, SPO2 is 93% on 4 liters nasal cannula. HEENT: Conjunctivae pink, sclerae nonicteric. NECK: Neck is supple, no JVD. CONSULT REPORT [id number] YAZAN ANAYA CHEST: The chest excursion is minimal with bilateral crackles, wheeze on forceful expiration. HEART: Rhythm regular, normal sound, no murmur. ABDOMEN: Abdomen is soft. Bowel sounds present. No hepatosplenomegaly. RECTAL: Deferred. EXTREMITIES: No cyanosis. No clubbing. A 1+ pedal edema. IMAGING: Chest radiograph, there are bilateral increased interstitial marking. There is no consolidation. LABORATORY DATA: CBC: WBC 15.3, hemoglobin 12.7, hematocrit 38.9, and the platelet count is 218. ABG: The pH is 7.35, pCO2 is 58.5, the pO2 is 64, and bicarb is 32.7. IMPRESSION: 1. Acute exacerbation of chronic obstructive pulmonary disease. 2. Dizxm-xb-bzyiqee hypoxic respiratory failure. The patient is on 2 liters at home, now he is on 4 liters. 3. Bilateral pneumonia, most likely community-acquired pneumonia. 4. Congestive heart failure with chronic diastolic dysfunction. 5. Pulmonary edema. 6. Leukocytosis. 7. Obstructive sleep apnea. The patient is noncompliant. 8. Interstitial lung disease with negative OSMEL and rheumatoid factor. RECOMMENDATION: 1. Continue supplemental oxygen and BiPAP at night if required. 2. Discontinue Zithromax, start on Levaquin for cover for Gram-negative rods. 3. Continue ceftriaxone. 4. Start methylprednisolone IV. 5. Start albuterol/ipratropium nebulizer, Brovana, and budesonide nebulizer. 6. Continue Lasix. 7. Check cardiac echo, follow up labs, and chest radiograph in the morning. Dr. Correa, thank you for involving me in the care of Mr. Anaya. TRANSINT:[id number] Voice Confirmation ID: [id number] DOCUMENT ID: [id number] NEGIN ARREDONDO MD at 1340 CC: ASHLEY CORREA [id number] DICTATION DATE: 07/22/17 1513 RESTAURANT LEAD: 07/22/17 1543 DIS IN 07/25/17 [facility] [address] [facility] [place] [address]
[~2017-07-22 03:50] MED LIST changes: +PLAVIX75 MG PO
[2017-07-22 04:28] LABS: BASOPHILS 0.2 % (0-2); EOSINOPHILS 2.2 % (0-7); HEMATOCRIT 38.9 % (42.0-54.0); HEMOGLOBIN 12.7 g/dL (13.5-17.5); IMMATURE GRANULOCYTES 0.4 % (0-5); LYMPHOCYTES 12.7 % (15-50); MCH 27.9 pg (26.0-34.0); MCHC 32.6 g/dL (31.0-37.0); MCV 85.3 fL (80.0-100.0); MEAN PLATELET VOLUME 11.7 fL (7.4-10.4); MONOCYTES 7.4 % (2-11); NEUTROPHILS 77.1 % (40-80); PLATELET COUNT 218 10x3/uL (130-400); RBC 4.56 10x6/uL (4.20-6.10); RDW 16.2 % (11.5-14.5); WBC 15.3 10x3/uL (4.8-10.8)
[2017-07-22 04:42] LABS: ALKALINE PHOSPHATASE 93 U/L (46-116); ALT (SGPT) 11 U/L (10-68); BILIRUBIN - TOTAL 0.61 mg/dL (0.2-1.3); CALC OSMOLALITY 274 mosm/kg (275-300); CALCIUM 8.8 mg/dL (8.5-10.1); CARBON DIOXIDE 31.9 mmol/L (21.0-32.0); CHLORIDE - SERUM 97 mmol/L (98-107); CREATININE - SERUM 0.9 mg/dL (0.6-1.3); POTASSIUM - SERUM 3.4 mmol/L (3.5-5.1); PROTEIN - SERUM 7.1 g/dL (6.4-8.2); SODIUM 135 mmol/L (136-145); UREA NITROGEN 12 mg/dL (7-18); eGFR NON AFRICAN AMERICAN > 90 mL/min (90-120)
[2017-07-22 04:52] LABS: GLUCOSE 185 mg/dL (74-106)
[2017-07-22 06:34] LABS: INR 1.08 (0.85-1.17); PROTIME 13.6 SECONDS (11.6-15.0)
[2017-07-22 06:36] LABS: D-DIMER-QUANTITATIVE 0.53 ug/mLFEU (0.20-0.54)
[2017-07-22 06:39] LABS: CKMB 1.2 U/L (0.0-3.6); CREATINE KINASE 57 UL (21-232); TROPONIN-I < 0.017 ng/mL (0.000-0.060)
[2017-07-22 10:22] VITALS: BP 108/61; BMI 44.0
[2017-07-22] MEDS ORDERED: METOPROLOL TART50 MG PO (11:02)
[2017-07-22] MEDS ORDERED: LISINOPRIL10 MG PO (11:03)
[2017-07-22 13:23] VITALS: BP 134/68
[2017-07-22 16:51] VITALS: BP 111/59
[2017-07-22 20:32] VITALS: BP 102/33
[2017-07-22 23:49] VITALS: BP 132/61
[2017-07-23 05:55] VITALS: BP 110/66
[2017-07-23 06:03] LABS: BASOPHILS 0 % (0-2); EOSINOPHILS 0 % (0-7); HEMATOCRIT 40.5 % (42.0-54.0); HEMOGLOBIN 13.1 g/dL (13.5-17.5); IMMATURE GRANULOCYTES 0.4 % (0-5); LYMPHOCYTES 4.6 % (15-50); MCH 27.5 pg (26.0-34.0); MCHC 32.3 g/dL (31.0-37.0); MCV 85.1 fL (80.0-100.0); MEAN PLATELET VOLUME 11.4 fL (7.4-10.4); MONOCYTES 0.8 % (2-11); NEUTROPHILS 94.2 % (40-80); PLATELET COUNT 198 10x3/uL (130-400); RBC 4.76 10x6/uL (4.20-6.10); RDW 15.8 % (11.5-14.5)
[2017-07-23 06:04] LABS: WBC 10.6 10x3/uL (4.8-10.8)
[2017-07-23 06:32] LABS: ALBUMIN 3.1 g/dL (3.4-5.0); ALKALINE PHOSPHATASE 97 U/L (46-116); CALCIUM 8.9 mg/dL (8.5-10.1); CARBON DIOXIDE 32.4 mmol/L (21.0-32.0); CHLORIDE - SERUM 97 mmol/L (98-107); CREATININE - SERUM 0.8 mg/dL (0.6-1.3); PROTEIN - SERUM 7.4 g/dL (6.4-8.2); SODIUM 137 mmol/L (136-145); UREA NITROGEN 13 mg/dL (7-18); eGFR NON AFRICAN AMERICAN > 90 mL/min (90-120)
[2017-07-23 06:35] LABS: ALT (SGPT) 14 U/L (10-68); CALC OSMOLALITY 286 mosm/kg (275-300); GLUCOSE 339 mg/dL (74-106); POTASSIUM - SERUM 4.6 mmol/L (3.5-5.1)
[2017-07-23 08:38] VITALS: BP 132/65
[2017-07-23 11:24] VITALS: BP 113/60
[2017-07-23 16:05] VITALS: BP 98/65
[2017-07-23 20:15] VITALS: BP 141/48
[2017-07-24 00:30] VITALS: BP 91/43
[2017-07-24 06:16] LABS: BASOPHILS 0 % (0-2); EOSINOPHILS 0 % (0-7); HEMATOCRIT 38.1 % (42.0-54.0); HEMOGLOBIN 12.1 g/dL (13.5-17.5); IMMATURE GRANULOCYTES 0.3 % (0-5); LYMPHOCYTES 5.9 % (15-50); MCH 27.2 pg (26.0-34.0); MCHC 31.8 g/dL (31.0-37.0); MCV 85.6 fL (80.0-100.0); MEAN PLATELET VOLUME 11.9 fL (7.4-10.4); MONOCYTES 3.1 % (2-11); NEUTROPHILS 90.7 % (40-80); PLATELET COUNT 198 10x3/uL (130-400); RBC 4.45 10x6/uL (4.20-6.10); RDW 15.8 % (11.5-14.5); WBC 13.7 10x3/uL (4.8-10.8)
[2017-07-24 06:24] VITALS: BP 110/64
[2017-07-24 06:47] LABS: ALBUMIN 2.9 g/dL (3.4-5.0); ALKALINE PHOSPHATASE 83 U/L (46-116); ALT (SGPT) 14 U/L (10-68); BILIRUBIN - TOTAL 0.47 mg/dL (0.2-1.3); CALCIUM 9.3 mg/dL (8.5-10.1); CARBON DIOXIDE 32.3 mmol/L (21.0-32.0); CHLORIDE - SERUM 95 mmol/L (98-107); CREATININE - SERUM 0.9 mg/dL (0.6-1.3); GLUCOSE 299 mg/dL (74-106); POTASSIUM - SERUM 4.6 mmol/L (3.5-5.1); PROTEIN - SERUM 6.9 g/dL (6.4-8.2); SODIUM 134 mmol/L (136-145); eGFR NON AFRICAN AMERICAN > 90 mL/min (90-120)
[2017-07-24 06:49] LABS: CALC OSMOLALITY 280 mosm/kg (275-300); UREA NITROGEN 18 mg/dL (7-18)
[2017-07-24 08:21] VITALS: BP 128/71
[2017-07-24 12:26] VITALS: BP 128/62
[2017-07-24 13:31] VITALS: Ht 180.3 cm; Wt 145.1 kg
[2017-07-24 15:26] VITALS: BP 126/65
[2017-07-24 20:00] VITALS: BP 123/68
[2017-07-25] VITALS: BP 123/71
[2017-07-25 04:00] VITALS: BP 120/70
[2017-07-25 05:43] LABS: BASOPHILS 0.1 % (0-2); EOSINOPHILS 0 % (0-7); HEMATOCRIT 39.2 % (42.0-54.0); HEMOGLOBIN 12.4 g/dL (13.5-17.5); IMMATURE GRANULOCYTES 0.4 % (0-5); LYMPHOCYTES 7.3 % (15-50); MCH 27.1 pg (26.0-34.0); MCHC 31.6 g/dL (31.0-37.0); MCV 85.8 fL (80.0-100.0); MEAN PLATELET VOLUME 11.9 fL (7.4-10.4); MONOCYTES 3.1 % (2-11); NEUTROPHILS 89.1 % (40-80); PLATELET COUNT 198 10x3/uL (130-400); RBC 4.57 10x6/uL (4.20-6.10); RDW 15.8 % (11.5-14.5); WBC 11.6 10x3/uL (4.8-10.8)
[2017-07-25 06:19] LABS: ANION GAP 10.4 mmol/L (8-16); BILIRUBIN - TOTAL 0.4 mg/dL (0.2-1.3); CALCIUM 9.2 mg/dL (8.5-10.1); CARBON DIOXIDE 33.9 mmol/L (21.0-32.0); CREATININE - SERUM 1.1 mg/dL (0.6-1.3); MAGNESIUM - SERUM 1.9 mg/dL (1.8-2.4); PHOSPHOROUS 4.1 mg/dL (2.5-4.9); POTASSIUM - SERUM 4.3 mmol/L (3.5-5.1)
[2017-07-25 07:54] VITALS: BP 145/86
[2017-07-25 15:15] VITALS: BP 132/77
[2017-07-25] MEDS ORDERED: PROTONIX40 MG PO (16:14)
[2017-07-25] MEDS ORDERED: MUCINEX DM ER1 EAC1 PO (16:14)
[2017-07-25] MEDS ORDERED: NYSTATIN1 PWD TOPICAL (16:15)
[2017-07-25] MEDS ORDERED: AUGMENTIN 875-11 TAB PO (16:16)
[2017-07-25] MEDS ORDERED: STERAPRED DS 1010 MG PO (16:22)
== END 2017-07-25 19:30 | disposition home or self-care (01) | DRG 193 ==
LOC: D.ER 03:50 → D.M2 07:31
PROVIDERS: Family Medicine
DX: J18.9 Pneumonia, unspecified organism (principal); J96.21 Acute and chronic respiratory failure with hypoxia; I50.33 Acute on chronic diastolic (congestive) heart failure; J44.0 Chronic obstructive pulmonary disease with (acute) lower respiratory infection; J44.1 Chronic obstructive pulmonary disease with (acute) exacerbation; I11.0 Hypertensive heart disease with heart failure; I48.2 Chronic atrial fibrillation; E11.65 Type 2 diabetes mellitus with hyperglycemia; E11.42 Type 2 diabetes mellitus with diabetic polyneuropathy; G47.33 Obstructive sleep apnea (adult) (pediatric); I27.20 Pulmonary hypertension, unspecified; J30.9 Allergic rhinitis, unspecified; I83.029 Varicose veins of left lower extremity with ulcer of unspecified site

== ENCOUNTER 2017-08-01 14:42 | Inpatient (IN) | payer MEDICAID ==
[~2017-08-01] VITALS: Ht 180.3 cm; Wt 138.6 kg
--- NOTE | ~2017-08-01 | CN ---
PATIENT NAME:YAZAN ANAYA MEDICAL RECORD: [id number] : 53 LOCATION:D.MS [facility] ADMIT DATE: 08/01/17 ACCOUNT: [id number] CONSULTING PHYSICIAN: NEGIN ARREDONDO MD REFERRING PHYSICIAN: PEE LOPEZ MD DATE OF CONSULTATION: 08/02/2017 Pulmonary Consultation CONSULT REQUESTING PHYSICIAN: Pee Lopez MD REASON FOR CONSULTATION: Acute exacerbation of chronic obstructive pulmonary disease, myajl-oe-bovkktl hypoxic respiratory failure, and elevated cardiac enzyme. HISTORY OF PRESENT ILLNESS: Mr. Anaya is a 61-year-old gentleman who was just discharged home from the hospital. He came in yesterday with worsening shortness of breath, cough, wheezing, and shortness of breath. On evaluation, it was found he had elevated troponin as well as bilateral lower lobe pneumonia. REVIEW OF SYSTEMS: As in history of present illness. PAST MEDICAL HISTORY: 1. COPD. 2. Hypertension. 3. Congestive heart failure. 4. Coronary artery disease. 5. Peripheral vascular disease. 6. Chronic hypoxic respiratory failure, home oxygen dependent. 7. Type 2 diabetes mellitus. 8. Obstructive sleep apnea, noncompliant. 9. History of atrial fibrillation. 10. Mild pulmonary hypertension with right ventricular systolic pressure of 39. 11. Gastroesophageal reflux disease. PAST SURGICAL HISTORY: Left big toe amputation and second toe amputation. ALLERGIES: There are no known drug allergies. MEDICATIONS: On [email or web address] is reviewed. PERSONAL AND SOCIAL HISTORY: The patient, I believe, is still a current everyday smoker. He is a nondrinker. FAMILY HISTORY: Noncontributory. PHYSICAL EXAMINATION: GENERAL: Now, the patient is lying comfortably in bed. He is not in acute distress. VITAL SIGNS: The blood pressure is 125/75, pulse is 75, respiration is 21, temperature 98.1, and SPO2 is 90% on 4 liter nasal cannula. HEENT: Conjunctivae are pink. Sclerae nonicteric. NECK: Supple. No JVD. CHEST: The chest is excursion is minimal on both sides. There is prolonged expiration with wheezing. There are basal crackles. CONSULT REPORT [id number] YAZAN ANAYA HEART: Rhythm regular, normal sound, no murmur. ABDOMEN: Soft, bowel sounds present. No hepatosplenomegaly. RECTAL: Deferred. EXTREMITIES: No cyanosis, no clubbing. There is 1+ pedal edema. CENTRAL NERVOUS SYSTEM: The patient is awake and alert. There is no obvious cranial nerve abnormality. The gait was not tested. CHEST RADIOGRAPH: Increased interstitial infiltrate. There are bilateral patchy infiltrate. LABORATORY DATA: CBC: WBC 9.4, hemoglobin 12.9, hematocrit 40, platelet count 163. Chemistry: Sodium 137, potassium 4.2, BUN is 9, creatinine 0.9. ABG: The pH is 7.40, pCO2 is 52.7, pO2 of 55, bicarb is 32.6. IMPRESSION: 1. Ptkva-ds-gdvyday hypoxic respiratory failure. 2. Acute exacerbation of chronic obstructive pulmonary disease. 3. Pneumonia, bilateral, consistent with hospital-acquired pneumonia. 4. Pulmonary edema. 5. Congestive heart failure with chronic diastolic dysfunction. 6. Elevated cardiac enzyme, rule out acute coronary syndrome. 7. Obstructive sleep apnea. The patient is noncompliant. RECOMMENDATIONS: 1. Start methylprednisolone IV, albuterol and ipratropium nebulizer, Brovana and budesonide nebulizer. Continue Zosyn and vancomycin. I will add Levaquin to cover for Gram-negative coverage. Lasix IV. 2. Follow up labs and chest radiograph. Dr. Lopez, thank you for involving me in the care of Mr. Anaya. TRANSINT:[id number] Voice Confirmation ID: [id number] DOCUMENT ID: [id number] NEGIN ARREDONDO MD at 1340 CC: PEE LOPEZ MD [id number] DICTATION DATE: 08/02/17 1426 PRESS SET UP PERSON: 08/02/17 1454 ADM IN [place] [id number] [place] [address]
--- NOTE | ~2017-08-01 | EC ---
PATIENT:YAZAN ANAYA DATE OF SERVICE: 08/01/17 SEX: M MEDICAL RECORD: [id number] DATE OF : 53 LOCATION:D.MS [facility] AGE OF PATIENT: 61 ADMISSION DATE: 08/01/17 REFERRING PHYSICIAN: INTERPRETING PHYSICIAN: LEI MENDIETA MD ECHOCARDIOGRAM REPORT ECHO CHARGES 4 ECHO COMPLETE Date: CLINICAL DIAGNOSIS: ELEVATED TROPONIN ECHOCARDIOGRAPHIC MEASUREMENTS (adult normal given) AC root (d.<3.7cm) 2.7 cm LV Septum d (<1.2 cm> 1.4 cm Valve Excursion 1.3 cm LV Septum (systole) 1.5 cm Left Atria (s.<4.0cm> 3.4 cm LVPW d(<1.2cm) 1.7 cm RV (d.<2.3cm) 4.8 cm LVPW (sytole) 1.8 cm LV diastole(<5.6CM) 5.4 cm MV E-F(>70mm/sec) cm LV systole 3.3 cm LVOT Diameter 2.1 cm MV exc.(>10mm) 2.1 cm Est.ejection fraction (50-75%) % DOPPLER: LVIT cm/sec A 99.0 cm/sec E 81.0 cm/sec LA cm/sec RVSP 21 mmHg LVOT 118 cm/sec AOP1/2T m/s Asc. Ao 162 cm/sec RVOT 81 cm/sec RA cm/sec PA 120 cm/sec AV Gradient Peak 10.50mmHg AV Mean 5.45 mmHg AV Area 2.6 cm MV Gradient Peak 5.77 mmHg MV Mean 3.13 mmHg MV Area cm COMMENTS: Visual Designer: Saw ANTONIO Mechanical Maintenance: 4 Dr. Mendieta TAPE# PACS Pericardial Effusion N DATE OF SERVICE: 08/03/2017 PROCEDURE: Transthoracic echocardiogram. FINDINGS: 1. Left ventricle: Normal size, normal function with evidence of trace to mild left ventricular hypertrophy and inflow characteristics consistent with diastolic dysfunction. 2. The left atrium is normal. 3. The aortic valve is normal. ECHOCARDIOGRAM REPORT [id number] YAZAN ANAYA 4. The mitral valve is normal. 5. The tricuspid valve is normal. 6. The pericardium is normal. 7. The right ventricle has mild dilatation. Normal function. 8. The right atrium is mildly dilated. CONCLUSIONS: The patient has evidence of mild hypertensive heart disease. Otherwise normal echocardiogram. TRANSINT:[id number] Voice Confirmation ID: [id number] DOCUMENT ID: [id number] 08/10/2017 Edited to correct date of service, dmm. LEI MENDIETA MD at 1426 CC: [id number] DICTATION DATE: 08/04/17 1611 PRESIDENT + PUBLISHER: 08/04/17 1630 DIS IN 08/07/17 [place] [id number] [place] [id number]
[~2017-08-01 14:42] MED LIST changes: +AUGMENTIN 875-11 TAB PO; +NYSTATIN1 PWD TOPICAL; +PROTONIX40 MG PO
[2017-08-01 15:23] LABS: BASOPHILS 0.1 % (0-2); EOSINOPHILS 3.2 % (0-7); HEMOGLOBIN 12.9 g/dL (13.5-17.5); IMMATURE GRANULOCYTES 0.6 % (0-5); LYMPHOCYTES 14.8 % (15-50); MCH 27.7 pg (26.0-34.0); MCHC 32.3 g/dL (31.0-37.0); MONOCYTES 11.9 % (2-11); NEUTROPHILS 69.4 % (40-80); PLATELET COUNT 163 10x3/uL (130-400); RBC 4.65 10x6/uL (4.20-6.10); RDW 17.4 % (11.5-14.5); WBC 9.4 10x3/uL (4.8-10.8)
[2017-08-01 15:35] LABS: ALKALINE PHOSPHATASE 91 U/L (46-116); ALT (SGPT) 15 U/L (10-68); CALC OSMOLALITY 279 mosm/kg (275-300); CALCIUM 8.4 mg/dL (8.5-10.1); CARBON DIOXIDE 31.3 mmol/L (21.0-32.0); CHLORIDE - SERUM 97 mmol/L (98-107); GLUCOSE 253 mg/dL (74-106); POTASSIUM - SERUM 3.8 mmol/L (3.5-5.1); PROTEIN - SERUM 6.8 g/dL (6.4-8.2); SODIUM 136 mmol/L (136-145); UREA NITROGEN 11 mg/dL (7-18); eGFR NON AFRICAN AMERICAN 80 mL/min (90-120)
[2017-08-01 15:54] LABS: PRO BNP 1358 pg/mL (0-125)
[2017-08-01 15:58] LABS: INR 1.16 (0.85-1.17); PROTIME 14.4 SECONDS (11.6-15.0)
[2017-08-01 16:00] LABS: TROPONIN-I 0.385 ng/mL (0.000-0.060)
[2017-08-01 16:06] LABS: MAGNESIUM - SERUM 1.5 mg/dL (1.8-2.4)
[2017-08-01 16:37] LABS: APPEARANCE CLEAR (CLEAR); COLOR DK YELLOW (YELLOW); GLUCOSE 1000 mg/dL (NEGATIVE); KETONE NEGATIVE (NEGATIVE); NITRITE NEGATIVE (NEGATIVE); PROTEIN NEGATIVE (NEGATIVE); SPECIFIC GRAVITY 1.015 (1.005-1.020); UROBILINOGEN NORMAL (NORMAL)
[2017-08-01 16:38] LABS: BILIRUBIN NEGATIVE (NEGATIVE)
[2017-08-01 16:39] LABS: BACTERIA FEW /hpf (NONE SEEN); RED CELLS - URINE 0-5 /hpf (0-5)
[2017-08-01 23:06] LABS: CKMB 0.9 U/L (0.0-3.6); CREATINE KINASE 46 UL (21-232)
[2017-08-01 23:16] LABS: TROPONIN-I 0.428 ng/mL (0.000-0.060)
[2017-08-02 03:42] LABS: BASOPHILS 0.1 % (0-2); EOSINOPHILS 3.1 % (0-7); HEMATOCRIT 39.1 % (42.0-54.0); HEMOGLOBIN 12.3 g/dL (13.5-17.5); IMMATURE GRANULOCYTES 0.8 % (0-5); LYMPHOCYTES 15.7 % (15-50); MCH 27.6 pg (26.0-34.0); MCHC 31.5 g/dL (31.0-37.0); MCV 87.7 fL (80.0-100.0); MONOCYTES 15.8 % (2-11); NEUTROPHILS 64.5 % (40-80); PLATELET COUNT 143 10x3/uL (130-400); RBC 4.46 10x6/uL (4.20-6.10); RDW 17.5 % (11.5-14.5); WBC 8.9 10x3/uL (4.8-10.8)
[2017-08-02 04:15] LABS: ALBUMIN 2.8 g/dL (3.4-5.0); ALKALINE PHOSPHATASE 85 U/L (46-116); ALT (SGPT) 13 U/L (10-68); BILIRUBIN - TOTAL 1.28 mg/dL (0.2-1.3); CALC OSMOLALITY 282 mosm/kg (275-300); CALCIUM 8.4 mg/dL (8.5-10.1); CARBON DIOXIDE 35.3 mmol/L (21.0-32.0); CHLORIDE - SERUM 97 mmol/L (98-107); CKMB 0.8 U/L (0.0-3.6); CREATINE KINASE 59 UL (21-232); CREATININE - SERUM 0.9 mg/dL (0.6-1.3); GLUCOSE 285 mg/dL (74-106); POTASSIUM - SERUM 4.2 mmol/L (3.5-5.1); PROTEIN - SERUM 6.5 g/dL (6.4-8.2); SODIUM 137 mmol/L (136-145); UREA NITROGEN 9 mg/dL (7-18); eGFR NON AFRICAN AMERICAN > 90 mL/min (90-120)
[2017-08-02 04:16] LABS: TROPONIN-I 0.375 ng/mL (0.000-0.060)
[2017-08-02 08:12] VITALS: BP 111/61; BMI 44.0
[2017-08-02 10:35] VITALS: BMI 43.9
[2017-08-02 11:46] LABS: CREATINE KINASE 54 UL (21-232)
[2017-08-02 11:47] LABS: TROPONIN-I 0.297 ng/mL (0.000-0.060)
[2017-08-02 12:56] VITALS: BP 125/75
[2017-08-02 16:23] VITALS: BP 112/71
[2017-08-02 20:00] VITALS: BP 112/53
[2017-08-03] VITALS: BP 137/86
[2017-08-03 06:24] LABS: BASOPHILS 0 % (0-2); EOSINOPHILS 0 % (0-7); HEMOGLOBIN 12.5 g/dL (13.5-17.5); IMMATURE GRANULOCYTES 0.3 % (0-5); LYMPHOCYTES 6.7 % (15-50); MCH 27.4 pg (26.0-34.0); MCHC 31.3 g/dL (31.0-37.0); MCV 87.5 fL (80.0-100.0); MEAN PLATELET VOLUME 11.6 fL (7.4-10.4); MONOCYTES 2.6 % (2-11); NEUTROPHILS 90.4 % (40-80); PLATELET COUNT 156 10x3/uL (130-400); RBC 4.57 10x6/uL (4.20-6.10); WBC 9.5 10x3/uL (4.8-10.8)
[2017-08-03 06:45] LABS: ANION GAP 12.7 mmol/L (8-16); BILIRUBIN - TOTAL 0.92 mg/dL (0.2-1.3); CALCIUM 8.9 mg/dL (8.5-10.1); CARBON DIOXIDE 31.8 mmol/L (21.0-32.0); POTASSIUM - SERUM 4.5 mmol/L (3.5-5.1); PROTEIN - SERUM 7.2 g/dL (6.4-8.2)
[2017-08-03 07:35] LABS: CREATININE - SERUM 1.2 mg/dL (0.6-1.3)
[2017-08-03 07:58] VITALS: BP 133/78
[2017-08-03 12:17] VITALS: BP 116/64
[2017-08-03 16:08] VITALS: BP 100/59
[2017-08-03 20:00] VITALS: BP 111/65
[2017-08-04 04:00] VITALS: BP 122/63
[2017-08-04 05:25] LABS: BASOPHILS 0 % (0-2); EOSINOPHILS 0 % (0-7); HEMOGLOBIN 12.3 g/dL (13.5-17.5); IMMATURE GRANULOCYTES 0.3 % (0-5); MCH 27.5 pg (26.0-34.0); MCHC 31.5 g/dL (31.0-37.0); MCV 87.1 fL (80.0-100.0); MEAN PLATELET VOLUME 11.5 fL (7.4-10.4); MONOCYTES 3.3 % (2-11); NEUTROPHILS 88.4 % (40-80); PLATELET COUNT 155 10x3/uL (130-400); RBC 4.48 10x6/uL (4.20-6.10); RDW 17.1 % (11.5-14.5); WBC 12.1 10x3/uL (4.8-10.8)
[2017-08-04 05:48] LABS: ALBUMIN 2.9 g/dL (3.4-5.0); ANION GAP 11.2 mmol/L (8-16); BILIRUBIN - TOTAL 0.72 mg/dL (0.2-1.3); CALCIUM 8.8 mg/dL (8.5-10.1); CARBON DIOXIDE 33.8 mmol/L (21.0-32.0); CREATININE - SERUM 1.2 mg/dL (0.6-1.3); PROTEIN - SERUM 6.9 g/dL (6.4-8.2)
[2017-08-04 08:04] VITALS: BP 137/80
[2017-08-04 12:14] VITALS: BP 122/65
[2017-08-04 16:16] VITALS: BP 108/70
[2017-08-04 20:00] VITALS: BP 115/62
[2017-08-04 23:30] VITALS: BP 115/56
[2017-08-05 04:00] VITALS: BP 113/58
[2017-08-05 06:23] LABS: BASOPHILS 0.1 % (0-2); EOSINOPHILS 0 % (0-7); HEMATOCRIT 37.7 % (42.0-54.0); HEMOGLOBIN 11.9 g/dL (13.5-17.5); IMMATURE GRANULOCYTES 0.4 % (0-5); LYMPHOCYTES 10.9 % (15-50); MCH 27.2 pg (26.0-34.0); MCHC 31.6 g/dL (31.0-37.0); MCV 86.1 fL (80.0-100.0); MEAN PLATELET VOLUME 11.2 fL (7.4-10.4); MONOCYTES 5.9 % (2-11); NEUTROPHILS 82.7 % (40-80); PLATELET COUNT 130 10x3/uL (130-400); RBC 4.38 10x6/uL (4.20-6.10); RDW 17.1 % (11.5-14.5); WBC 10.9 10x3/uL (4.8-10.8)
[2017-08-05 06:35] LABS: ALBUMIN 2.8 g/dL (3.4-5.0); ALKALINE PHOSPHATASE 78 U/L (46-116); ALT (SGPT) 14 U/L (10-68); BILIRUBIN - TOTAL 0.61 mg/dL (0.2-1.3); CALC OSMOLALITY 287 mosm/kg (275-300); CALCIUM 8.6 mg/dL (8.5-10.1); CARBON DIOXIDE 33.3 mmol/L (21.0-32.0); CHLORIDE - SERUM 96 mmol/L (98-107); GLUCOSE 305 mg/dL (74-106); PROTEIN - SERUM 6.5 g/dL (6.4-8.2); SODIUM 136 mmol/L (136-145); UREA NITROGEN 27 mg/dL (7-18); eGFR NON AFRICAN AMERICAN 80 mL/min (90-120)
[2017-08-05 08:45] VITALS: Ht 180.3 cm; Wt 138.6 kg
[2017-08-05 10:56] VITALS: BP 117/67
[2017-08-05 15:03] VITALS: BP 111/56
[2017-08-05 16:52] VITALS: BP 98/32
[2017-08-05 20:00] VITALS: BP 115/61
[2017-08-06] VITALS: BP 136/63
[2017-08-06 04:00] VITALS: BP 140/62
[2017-08-06 05:38] LABS: BASOPHILS 0 % (0-2); EOSINOPHILS 0 % (0-7); HEMATOCRIT 37.6 % (42.0-54.0); HEMOGLOBIN 11.8 g/dL (13.5-17.5); IMMATURE GRANULOCYTES 0.4 % (0-5); MCH 27.4 pg (26.0-34.0); MCHC 31.4 g/dL (31.0-37.0); MCV 87.2 fL (80.0-100.0); MEAN PLATELET VOLUME 11.1 fL (7.4-10.4); MONOCYTES 5.6 % (2-11); PLATELET COUNT 143 10x3/uL (130-400); RBC 4.31 10x6/uL (4.20-6.10); RDW 16.9 % (11.5-14.5); WBC 12.1 10x3/uL (4.8-10.8)
[2017-08-06 05:56] LABS: ALBUMIN 2.9 g/dL (3.4-5.0); ALKALINE PHOSPHATASE 63 U/L (46-116); ALT (SGPT) 15 U/L (10-68); CALC OSMOLALITY 293 mosm/kg (275-300); CALCIUM 8.6 mg/dL (8.5-10.1); CARBON DIOXIDE 33.7 mmol/L (21.0-32.0); CHLORIDE - SERUM 98 mmol/L (98-107); POTASSIUM - SERUM 4.1 mmol/L (3.5-5.1); PROTEIN - SERUM 6.2 g/dL (6.4-8.2); SODIUM 141 mmol/L (136-145); UREA NITROGEN 25 mg/dL (7-18); eGFR NON AFRICAN AMERICAN 80 mL/min (90-120)
[2017-08-06 05:57] LABS: GLUCOSE 253 mg/dL (74-106)
[2017-08-06 08:07] VITALS: BP 140/82
[2017-08-06 11:57] VITALS: BP 123/72
[2017-08-06 15:29] VITALS: BP 102/51
[2017-08-06 20:55] VITALS: BP 128/74
[2017-08-07 05:40] VITALS: BP 127/51
[2017-08-07 06:29] LABS: BASOPHILS 0.1 % (0-2); EOSINOPHILS 0.1 % (0-7); HEMATOCRIT 39.8 % (42.0-54.0); HEMOGLOBIN 12.6 g/dL (13.5-17.5); IMMATURE GRANULOCYTES 0.6 % (0-5); LYMPHOCYTES 24.5 % (15-50); MCH 27.4 pg (26.0-34.0); MCHC 31.7 g/dL (31.0-37.0); MCV 86.5 fL (80.0-100.0); MEAN PLATELET VOLUME 11.2 fL (7.4-10.4); MONOCYTES 6.7 % (2-11); PLATELET COUNT 151 10x3/uL (130-400); WBC 14.2 10x3/uL (4.8-10.8)
[2017-08-07 06:51] LABS: ALBUMIN 2.8 g/dL (3.4-5.0); ALKALINE PHOSPHATASE 67 U/L (46-116); ALT (SGPT) 14 U/L (10-68); CALCIUM 8.7 mg/dL (8.5-10.1); CARBON DIOXIDE 36.2 mmol/L (21.0-32.0); CHLORIDE - SERUM 99 mmol/L (98-107); PROTEIN - SERUM 6.4 g/dL (6.4-8.2); SODIUM 142 mmol/L (136-145); UREA NITROGEN 27 mg/dL (7-18); eGFR NON AFRICAN AMERICAN 80 mL/min (90-120)
[2017-08-07 06:54] LABS: CALC OSMOLALITY 289 mosm/kg (275-300); GLUCOSE 137 mg/dL (74-106); POTASSIUM - SERUM 3.1 mmol/L (3.5-5.1)
[2017-08-07 09:39] VITALS: BP 93/60
[2017-08-07] MEDS ORDERED: OMNICEF300 MG PO (13:07)
[2017-08-07] MEDS ORDERED: FUROSEMIDE40 MG PO (13:08)
[2017-08-07 13:56] VITALS: BP 93/66
== END 2017-08-07 15:56 | disposition home health service (06) | DRG 291 ==
LOC: D.ER 14:42 → D.EDHOLD 21:15 → D.MS 21:15
PROVIDERS: Family Medicine; Family Medicine Adult Medicine; Nurse Practitioner Family
DX: I11.0 Hypertensive heart disease with heart failure (principal); J18.9 Pneumonia, unspecified organism; J96.21 Acute and chronic respiratory failure with hypoxia; J44.0 Chronic obstructive pulmonary disease with (acute) lower respiratory infection; J44.1 Chronic obstructive pulmonary disease with (acute) exacerbation; F17.203 Nicotine dependence unspecified, with withdrawal; I50.33 Acute on chronic diastolic (congestive) heart failure; Y95 Nosocomial condition; I25.10 Atherosclerotic heart disease of native coronary artery without angina pectoris; Z99.81 Dependence on supplemental oxygen; E11.9 Type 2 diabetes mellitus without complications; G47.33 Obstructive sleep apnea (adult) (pediatric); Z91.19 Patient's noncompliance with other medical treatment and regimen; K21.9 Gastro-esophageal reflux disease without esophagitis; I48.91 Unspecified atrial fibrillation

== ENCOUNTER 2017-08-09 11:34 | Inpatient (IN) | payer MEDICAID ==
[~2017-08-09] VITALS: Ht 180.3 cm; Wt 139.1 kg
[2017-08-09 13:20] LABS: APPEARANCE HAZY (CLEAR); BILIRUBIN NEGATIVE (NEGATIVE); COLOR YELLOW (YELLOW); GLUCOSE 100 mg/dL (NEGATIVE); KETONE NEGATIVE (NEGATIVE); NITRITE NEGATIVE (NEGATIVE); PROTEIN 1+ mg/dL (NEGATIVE); SPECIFIC GRAVITY 1.015 (1.005-1.020)
[2017-08-09 13:22] LABS: BACTERIA FEW /hpf (NONE SEEN); EPITHELIAL CELLS OCC /hpf (0-5); MUCUS <1+ /lpf (NONE SEEN); RED CELLS - URINE OCC /hpf (0-5); URIC ACID CRYSTALS 0-5 /hpf (NONE SEEN)
[2017-08-09 13:25] LABS: BASOPHILS 0.1 % (0-2); EOSINOPHILS 0 % (0-7); HEMATOCRIT 43.8 % (42.0-54.0); HEMOGLOBIN 14.6 g/dL (13.5-17.5); IMMATURE GRANULOCYTES 0.5 % (0-5); LYMPHOCYTES 10.4 % (15-50); MCH 28.2 pg (26.0-34.0); MCHC 33.3 g/dL (31.0-37.0); MCV 84.7 fL (80.0-100.0); MEAN PLATELET VOLUME 10.7 fL (7.4-10.4); MONOCYTES 3.6 % (2-11); NEUTROPHILS 85.4 % (40-80); PLATELET COUNT 158 10x3/uL (130-400); RBC 5.17 10x6/uL (4.20-6.10); RDW 16.9 % (11.5-14.5); WBC 15.1 10x3/uL (4.8-10.8)
[2017-08-09 13:38] LABS: ALBUMIN 3.3 g/dL (3.4-5.0); ALKALINE PHOSPHATASE 73 U/L (46-116); ALT (SGPT) 19 U/L (10-68); BILIRUBIN - TOTAL 1.23 mg/dL (0.2-1.3); CALC OSMOLALITY 288 mosm/kg (275-300); CALCIUM 8.8 mg/dL (8.5-10.1); CARBON DIOXIDE 35.7 mmol/L (21.0-32.0); CHLORIDE - SERUM 99 mmol/L (98-107); CREATININE - SERUM 0.9 mg/dL (0.6-1.3); POTASSIUM - SERUM 3.2 mmol/L (3.5-5.1); PROTEIN - SERUM 7.2 g/dL (6.4-8.2); SODIUM 142 mmol/L (136-145); UREA NITROGEN 32 mg/dL (7-18); eGFR NON AFRICAN AMERICAN > 90 mL/min (90-120)
[2017-08-09 13:39] LABS: GLUCOSE 86 mg/dL (74-106); LIPASE 38 U/L (73-393)
[2017-08-09 19:09] VITALS: BP 135/69; Ht 180.3 cm; Wt 139.1 kg
[2017-08-09 20:30] VITALS: BP 112/69
[2017-08-10 00:52] VITALS: BP 93/52
[2017-08-10 03:47] VITALS: BP 125/60
[2017-08-10 04:37] LABS: BASOPHILS 0.1 % (0-2); HEMATOCRIT 40.5 % (42.0-54.0); IMMATURE GRANULOCYTES 0.7 % (0-5); MCH 27.6 pg (26.0-34.0); MCHC 32.1 g/dL (31.0-37.0); MEAN PLATELET VOLUME 11.9 fL (7.4-10.4); MONOCYTES 5.4 % (2-11); NEUTROPHILS 75.8 % (40-80); PLATELET COUNT 183 10x3/uL (130-400); RBC 4.71 10x6/uL (4.20-6.10); RDW 17.2 % (11.5-14.5); WBC 15.1 10x3/uL (4.8-10.8)
[2017-08-10 04:49] LABS: CALCIUM 8.7 mg/dL (8.5-10.1); CARBON DIOXIDE 35.5 mmol/L (21.0-32.0); CHLORIDE - SERUM 102 mmol/L (98-107); SODIUM 143 mmol/L (136-145); UREA NITROGEN 24 mg/dL (7-18); eGFR NON AFRICAN AMERICAN 80 mL/min (90-120)
[2017-08-10 04:51] LABS: CALC OSMOLALITY 292 mosm/kg (275-300); GLUCOSE 177 mg/dL (74-106); POTASSIUM - SERUM 3.7 mmol/L (3.5-5.1)
[2017-08-10 08:29] VITALS: BP 105/55
[2017-08-10 12:51] VITALS: BP 123/69
[2017-08-10 15:51] VITALS: BP 131/69
[2017-08-10 20:38] VITALS: BP 105/86
[2017-08-11 00:40] VITALS: BP 95/84
[2017-08-11 04:38] VITALS: BP 130/70
[2017-08-11 04:51] LABS: BASOPHILS 0 % (0-2); EOSINOPHILS 0.1 % (0-7); HEMATOCRIT 39.5 % (42.0-54.0); HEMOGLOBIN 12.6 g/dL (13.5-17.5); IMMATURE GRANULOCYTES 0.4 % (0-5); LYMPHOCYTES 7.1 % (15-50); MCH 27.9 pg (26.0-34.0); MCHC 31.9 g/dL (31.0-37.0); MCV 87.6 fL (80.0-100.0); MEAN PLATELET VOLUME 12.1 fL (7.4-10.4); MONOCYTES 3.1 % (2-11); NEUTROPHILS 89.3 % (40-80); PLATELET COUNT 186 10x3/uL (130-400); RBC 4.51 10x6/uL (4.20-6.10); RDW 17.2 % (11.5-14.5); WBC 12.5 10x3/uL (4.8-10.8)
[2017-08-11 05:12] LABS: CALCIUM 8.7 mg/dL (8.5-10.1); CARBON DIOXIDE 34.8 mmol/L (21.0-32.0); CHLORIDE - SERUM 99 mmol/L (98-107); SODIUM 141 mmol/L (136-145); UREA NITROGEN 18 mg/dL (7-18); eGFR NON AFRICAN AMERICAN 80 mL/min (90-120)
[2017-08-11 05:13] LABS: CALC OSMOLALITY 292 mosm/kg (275-300); GLUCOSE 282 mg/dL (74-106); POTASSIUM - SERUM 4.6 mmol/L (3.5-5.1)
[2017-08-11] MEDS ORDERED: NOVOLOG MIX 70/10 ML SQ (07:59)
[2017-08-11 08:09] VITALS: BP 122/74
== END 2017-08-11 10:38 | disposition home health service (06) | DRG 637 ==
LOC: D.ER 11:34 → D.EDHOLD 16:10 → D.MS 16:10
PROVIDERS: Emergency Medicine; Family Medicine
DX: E11.649 Type 2 diabetes mellitus with hypoglycemia without coma (principal); J18.9 Pneumonia, unspecified organism; I50.32 Chronic diastolic (congestive) heart failure; J96.10 Chronic respiratory failure, unspecified whether with hypoxia or hypercapnia; Z79.4 Long term (current) use of insulin; I11.0 Hypertensive heart disease with heart failure; Z99.81 Dependence on supplemental oxygen; I73.9 Peripheral vascular disease, unspecified

== ENCOUNTER 2017-09-06 12:43 | Inpatient (IN) | payer MEDICAID ==
[~2017-09-06] VITALS: Ht 180.3 cm; Wt 139.1 kg
[2017-09-06 13:15] LABS: BASOPHILS 0.3 % (0-2); EOSINOPHILS 2.5 % (0-7); HEMATOCRIT 39.5 % (42.0-54.0); HEMOGLOBIN 12.9 g/dL (13.5-17.5); IMMATURE GRANULOCYTES 0.4 % (0-5); LYMPHOCYTES 19.9 % (15-50); MCH 28.3 pg (26.0-34.0); MCHC 32.7 g/dL (31.0-37.0); MCV 86.6 fL (80.0-100.0); MEAN PLATELET VOLUME 11.1 fL (7.4-10.4); MONOCYTES 7.4 % (2-11); NEUTROPHILS 69.5 % (40-80); RBC 4.56 10x6/uL (4.20-6.10); RDW 16.3 % (11.5-14.5); WBC 11.4 10x3/uL (4.8-10.8)
[2017-09-06 13:21] LABS: PLATELET COUNT 230 10x3/uL (130-400)
[2017-09-06 13:41] LABS: ALBUMIN 3.1 g/dL (3.4-5.0); ALKALINE PHOSPHATASE 123 U/L (46-116); ALT (SGPT) 16 U/L (10-68); BILIRUBIN - TOTAL 0.78 mg/dL (0.2-1.3); CALC OSMOLALITY 274 mosm/kg (275-300); CALCIUM 8.5 mg/dL (8.5-10.1); CARBON DIOXIDE 27.1 mmol/L (21.0-32.0); CHLORIDE - SERUM 98 mmol/L (98-107); CREATININE - SERUM 0.9 mg/dL (0.6-1.3); SODIUM 137 mmol/L (136-145); UREA NITROGEN 7 mg/dL (7-18); eGFR NON AFRICAN AMERICAN > 90 mL/min (90-120)
[2017-09-06 13:46] LABS: GLUCOSE 150 mg/dL (74-106)
[2017-09-06 13:47] LABS: CREATINE KINASE 49 UL (21-232); PRO BNP 1594 pg/mL (0-125)
[2017-09-06 20:34] LABS: % SATURATION 15 % (15-55); IRON 38 ug/dl (35-150); TOTAL IRON BIND CAPACITY 251 ug/dl (260-445); UNSAT IRON BIND CAPACITY 213 ug/dl (150-375)
[2017-09-06 21:04] VITALS: BP 136/59
[2017-09-07 01:31] VITALS: BMI 44.0
[2017-09-07] MEDS ORDERED: HYDROCODONE-APA1 TAB PO (05:26)
[2017-09-07 05:58] VITALS: BP 113/58
[2017-09-07 06:09] LABS: BASOPHILS 0.1 % (0-2); EOSINOPHILS 0 % (0-7); HEMATOCRIT 38.1 % (42.0-54.0); HEMOGLOBIN 12.4 g/dL (13.5-17.5); IMMATURE GRANULOCYTES 0.5 % (0-5); LYMPHOCYTES 8.5 % (15-50); MCHC 32.5 g/dL (31.0-37.0); MEAN PLATELET VOLUME 11.2 fL (7.4-10.4); NEUTROPHILS 87.9 % (40-80); PLATELET COUNT 232 10x3/uL (130-400); RBC 4.43 10x6/uL (4.20-6.10); RDW 16.1 % (11.5-14.5); WBC 10.6 10x3/uL (4.8-10.8)
[2017-09-07 06:28] LABS: CALC OSMOLALITY 281 mosm/kg (275-300); CALCIUM 8.7 mg/dL (8.5-10.1); CARBON DIOXIDE 29.6 mmol/L (21.0-32.0); CHLORIDE - SERUM 100 mmol/L (98-107); CREATININE - SERUM 0.8 mg/dL (0.6-1.3); POTASSIUM - SERUM 4.1 mmol/L (3.5-5.1); SODIUM 137 mmol/L (136-145); UREA NITROGEN 6 mg/dL (7-18); eGFR NON AFRICAN AMERICAN > 90 mL/min (90-120)
[2017-09-07 06:31] LABS: GLUCOSE 272 mg/dL (74-106)
[2017-09-07 07:49] VITALS: BP 139/60
[2017-09-07 10:57] VITALS: BP 141/66
[2017-09-07 13:18] VITALS: Ht 180.3 cm; Wt 139.1 kg
[2017-09-07 15:11] VITALS: BP 138/71
[2017-09-07 21:42] VITALS: BP 136/73
[2017-09-08 02:01] VITALS: BP 107/60
[2017-09-08 05:32] VITALS: BP 128/70
[2017-09-08 06:57] LABS: BASOPHILS 0.2 % (0-2); EOSINOPHILS 0.7 % (0-7); HEMATOCRIT 37.5 % (42.0-54.0); HEMOGLOBIN 11.9 g/dL (13.5-17.5); IMMATURE GRANULOCYTES 0.5 % (0-5); LYMPHOCYTES 22.2 % (15-50); MCH 27.9 pg (26.0-34.0); MCHC 31.7 g/dL (31.0-37.0); MCV 87.8 fL (80.0-100.0); MEAN PLATELET VOLUME 11.1 fL (7.4-10.4); MONOCYTES 8.2 % (2-11); NEUTROPHILS 68.2 % (40-80); PLATELET COUNT 217 10x3/uL (130-400); RBC 4.27 10x6/uL (4.20-6.10); RDW 16.1 % (11.5-14.5); WBC 12.7 10x3/uL (4.8-10.8)
[2017-09-08 07:14] LABS: CALCIUM 8.9 mg/dL (8.5-10.1); CARBON DIOXIDE 32.7 mmol/L (21.0-32.0); CHLORIDE - SERUM 101 mmol/L (98-107); POTASSIUM - SERUM 3.7 mmol/L (3.5-5.1); SODIUM 139 mmol/L (136-145); eGFR NON AFRICAN AMERICAN 80 mL/min (90-120)
[2017-09-08 07:24] LABS: CALC OSMOLALITY 277 mosm/kg (275-300); GLUCOSE 124 mg/dL (74-106); UREA NITROGEN 11 mg/dL (7-18)
[2017-09-08 07:40] VITALS: BP 164/86
[2017-09-08 08:20] LABS: FOLATE (FOLIC ACID) - SERUM 15.5 ng/mL (>3.0)
[2017-09-08 11:52] VITALS: BP 136/56
[2017-09-08 15:24] VITALS: BP 131/66
[2017-09-08 20:00] VITALS: BP 120/38; BP 159/90
[2017-09-09 01:00] VITALS: BP 117/70
[2017-09-09 04:00] VITALS: BP 134/61
[2017-09-09 05:40] LABS: BASOPHILS 0.3 % (0-2); EOSINOPHILS 0.3 % (0-7); HEMATOCRIT 38.9 % (42.0-54.0); HEMOGLOBIN 12.2 g/dL (13.5-17.5); IMMATURE GRANULOCYTES 0.3 % (0-5); LYMPHOCYTES 13.6 % (15-50); MCH 27.7 pg (26.0-34.0); MCHC 31.4 g/dL (31.0-37.0); MCV 88.4 fL (80.0-100.0); MEAN PLATELET VOLUME 11.3 fL (7.4-10.4); MONOCYTES 6.9 % (2-11); NEUTROPHILS 78.6 % (40-80); PLATELET COUNT 218 10x3/uL (130-400); RDW 16.3 % (11.5-14.5); WBC 11.4 10x3/uL (4.8-10.8)
[2017-09-09 06:00] LABS: CALC OSMOLALITY 280 mosm/kg (275-300); CALCIUM 8.9 mg/dL (8.5-10.1); CARBON DIOXIDE 33.2 mmol/L (21.0-32.0); CHLORIDE - SERUM 101 mmol/L (98-107); GLUCOSE 117 mg/dL (74-106); SODIUM 140 mmol/L (136-145); eGFR NON AFRICAN AMERICAN 80 mL/min (90-120)
[2017-09-09 06:03] LABS: UREA NITROGEN 14 mg/dL (7-18)
[2017-09-09 09:14] VITALS: BP 153/79
[2017-09-09 12:23] VITALS: BP 136/71
[2017-09-09 16:39] VITALS: BP 112/54
[2017-09-09 23:02] VITALS: BP 132/70
[2017-09-10 05:48] VITALS: BP 128/71
[2017-09-10 05:55] LABS: BASOPHILS 0.2 % (0-2); EOSINOPHILS 0 % (0-7); HEMATOCRIT 40.3 % (42.0-54.0); HEMOGLOBIN 12.7 g/dL (13.5-17.5); IMMATURE GRANULOCYTES 0.3 % (0-5); LYMPHOCYTES 11.6 % (15-50); MCHC 31.5 g/dL (31.0-37.0); MCV 88.8 fL (80.0-100.0); MEAN PLATELET VOLUME 10.8 fL (7.4-10.4); MONOCYTES 6.7 % (2-11); NEUTROPHILS 81.2 % (40-80); PLATELET COUNT 226 10x3/uL (130-400); RBC 4.54 10x6/uL (4.20-6.10); RDW 15.9 % (11.5-14.5); WBC 13.9 10x3/uL (4.8-10.8)
[2017-09-10 06:18] LABS: CALC OSMOLALITY 279 mosm/kg (275-300); CARBON DIOXIDE 35.1 mmol/L (21.0-32.0); CHLORIDE - SERUM 98 mmol/L (98-107); CREATININE - SERUM 0.9 mg/dL (0.6-1.3); GLUCOSE 97 mg/dL (74-106); POTASSIUM - SERUM 4.2 mmol/L (3.5-5.1); SODIUM 139 mmol/L (136-145); UREA NITROGEN 17 mg/dL (7-18); eGFR NON AFRICAN AMERICAN > 90 mL/min (90-120)
[2017-09-10 08:02] VITALS: BP 139/80
[2017-09-10 11:16] VITALS: BP 129/60
[2017-09-10 15:01] VITALS: BP 113/77
[2017-09-10 20:00] VITALS: BP 118/67
[2017-09-11] VITALS: BP 92/56
[2017-09-11 04:00] VITALS: BP 142/80
[2017-09-11 06:20] LABS: BASOPHILS 0.1 % (0-2); EOSINOPHILS 0.1 % (0-7); HEMATOCRIT 39.7 % (42.0-54.0); HEMOGLOBIN 12.6 g/dL (13.5-17.5); IMMATURE GRANULOCYTES 0.4 % (0-5); LYMPHOCYTES 11.6 % (15-50); MCH 28.2 pg (26.0-34.0); MCHC 31.7 g/dL (31.0-37.0); MCV 88.8 fL (80.0-100.0); MEAN PLATELET VOLUME 10.9 fL (7.4-10.4); MONOCYTES 7.2 % (2-11); NEUTROPHILS 80.6 % (40-80); PLATELET COUNT 228 10x3/uL (130-400); RBC 4.47 10x6/uL (4.20-6.10); RDW 16.2 % (11.5-14.5)
[2017-09-11 06:55] LABS: CALC OSMOLALITY 285 mosm/kg (275-300); CARBON DIOXIDE 37.8 mmol/L (21.0-32.0); CHLORIDE - SERUM 99 mmol/L (98-107); CREATININE - SERUM 0.8 mg/dL (0.6-1.3); GLUCOSE 104 mg/dL (74-106); POTASSIUM - SERUM 4.5 mmol/L (3.5-5.1); SODIUM 142 mmol/L (136-145); UREA NITROGEN 21 mg/dL (7-18); eGFR NON AFRICAN AMERICAN > 90 mL/min (90-120)
[2017-09-11 09:17] VITALS: BP 110/61
[2017-09-11 10:44] VITALS: BP 113/64
[2017-09-11 15:17] VITALS: BP 108/64
[2017-09-11 19:42] VITALS: BP 113/66
[2017-09-12 00:58] VITALS: BP 107/65
[2017-09-12 04:00] VITALS: BP 104/62
[2017-09-12 07:46] VITALS: BP 125/62
[2017-09-12 10:36] VITALS: BP 130/65
[2017-09-12 16:15] VITALS: BP 142/72
[2017-09-12 20:00] VITALS: BP 100/51
[2017-09-13] VITALS: BP 107/59
[2017-09-13 04:00] VITALS: BP 112/50
[2017-09-13] MEDS ORDERED: DOXYCYCLINE HY100 M2 PO (11:45)
[2017-09-13] MEDS ORDERED: PREDNISONE10 MG PO (11:46)
[2017-09-13 13:17] LABS: ANA REFLEX - ANTICHROMATIN ABS <0.2 AI (0.0-0.9); ANA REFLEX - CENTROMERE B ABS <0.2 AI (0.0-0.9); ANA REFLEX - DBL STRANDED DNA 19 IU/mL (0-9); ANA REFLEX - DIRECT Positive (Negative); ANA REFLEX - JO-1 AB <0.2 AI (0.0-0.9); ANA REFLEX - RNP ANTIBODIES 0.3 AI (0.0-0.9); ANA REFLEX - SCL-70 <0.2 AI (0.0-0.9); ANA REFLEX - SJOGRENS AB SSA <0.2 AI (0.0-0.9); ANA REFLEX - SJOGRENS AB SSB <0.2 AI (0.0-0.9); ANA REFLEX - SMITH AB <0.2 AI (0.0-0.9)
== END 2017-09-13 16:17 | disposition home or self-care (01) | DRG 177 ==
LOC: D.ER 12:43 → OBSVTIME 17:08 → D.EDHOLD 17:08 → D.M2 17:08
PROVIDERS: Emergency Medicine; Internal Medicine Nephrology; Internal Medicine Pulmonary Disease
DX: J69.0 Pneumonitis due to inhalation of food and vomit (principal); J96.21 Acute and chronic respiratory failure with hypoxia; I50.33 Acute on chronic diastolic (congestive) heart failure; J44.1 Chronic obstructive pulmonary disease with (acute) exacerbation; F17.203 Nicotine dependence unspecified, with withdrawal; J44.0 Chronic obstructive pulmonary disease with (acute) lower respiratory infection; I27.20 Pulmonary hypertension, unspecified; I07.1 Rheumatic tricuspid insufficiency; I25.10 Atherosclerotic heart disease of native coronary artery without angina pectoris; I73.9 Peripheral vascular disease, unspecified; I48.2 Chronic atrial fibrillation; I11.0 Hypertensive heart disease with heart failure; E11.40 Type 2 diabetes mellitus with diabetic neuropathy, unspecified; J30.9 Allergic rhinitis, unspecified; Z99.81 Dependence on supplemental oxygen; G47.33 Obstructive sleep apnea (adult) (pediatric)

== ENCOUNTER → 2017-09-21 14:33 | Outpatient (CLI) | payer MEDICAID ==
[2017-09-07 13:18] VITALS: BMI 43.9
[~2017-09-21 14:33] MED LIST changes: +HYDROCODONE-APA1 TAB PO
== END | disposition home or self-care (01) ==
LOC: D.RAD 14:33
DX: R60.0 Localized edema (principal)

== ENCOUNTER 2017-12-31 14:57 | Inpatient (IN) | payer MEDICAID ==
[~2017-12-31] VITALS: Ht 188 cm; Wt 132.4 kg
--- NOTE | ~2017-12-31 | CN ---
PATIENT NAME:YAZAN ANAYA MEDICAL RECORD: [id number] : 53 LOCATION:D.MS Chi2231 ADMIT DATE: 12/31/17 ACCOUNT: [id number] CONSULTING PHYSICIAN: CAROLINE GUTIERREZ REFERRING PHYSICIAN: BELEN SMITH DO DATE OF CONSULTATION: 01/01/2018 HISTORY OF PRESENT ILLNESS: This is a 62-year-old man who has had a history of chronic obstructive pulmonary disease and chronic respiratory failure with hypoxemia, requiring oxygen 4 liters per minute at home. He also uses bronchodilators. The patient was seen in the Emergency Room with cough and shortness of breath, sputum production, and pneumonia. The patient was admitted to the medical floor. PAST MEDICAL HISTORY: Remarkable for diabetes, hypertension, congestive heart failure, peripheral vascular disease, COPD, and chronic hypoxemic respiratory failure. PAST SURGICAL HISTORY: Includes left big toe amputation and second toe and stent placement. ALLERGIES: No known allergies. CURRENT MEDICATIONS: Include Brovana 15 mcg b.i.d. inhalation, Tessalon Perles 200 mg t.i.d., potassium chloride 20 mEq b.i.d., doxycycline 100 mg q. 12 hours, prednisone none, Mucinex DM 600-30 b.i.d., Protonix 40 mg daily, nystatin powder topical b.i.d., Lasix 40 mg b.i.d., amiodarone 200 mg daily, NovoLog 70/30 60 units subQ b.i.d. FAMILY HISTORY: Remarkable for lung disease as well as cancer. SOCIAL HISTORY: The patient smokes currently, has been smoking for a long time. Alcohol - there is none. Recreational drugs: None. REVIEW OF SYSTEMS: NEUROLOGIC: No seizure. CONSTITUTIONAL: The patient denies any fever or chills, weight loss. SHEENT: There is no headache, nasal drainage or sore throat. CARDIOPULMONARY: The patient denies any orthopnea or PND. There is no chest pain, there are no palpitations. GASTROINTESTINAL: There is no nausea, vomiting, or abdominal pain. GENITOURINARY: There is no frequency or dysuria. PHYSICAL EXAMINATION: GENERAL: Physical exam reveals a well-developed, well-nourished man, who is in no acute distress. VITAL SIGNS: Temperature 98.1, heart rate of 70, respiratory rate of 18, blood pressure 135/72. SHEENT: Unremarkable. Nares showed some mild redness. NECK: Supple. There is no adenopathy. Trachea is midline. CHEST: Exam shows some mild crackles and some coughing. Accessory muscle use. HEART: Exam shows no jugular venous distention, no murmur or gallops. ABDOMEN: Exam is benign, there is no tenderness, there is no distention. EXTREMITIES: No clubbing, cyanosis or edema. CONSULT REPORT [id number] YAZAN ANAYA LABORATORY DATA: White count 7.5, hemoglobin 14.3, platelet count is 102,000. Chemistry is remarkable for sodium of 133. Glucose is 334. Lactic acid 1.6. Magnesium is 1.6, phosphorus 4.1. Chest x-ray showed bilateral suggesting upper lobe airspace disease, suggestive of pneumonia with probable component of scarring. IMPRESSION: 1. Bilateral bibasilar pneumonia, community acquired in a patient with chronic obstructive pulmonary disease. 2. Acute exacerbation of chronic obstructive pulmonary disease. 3. Chronic hypoxemic respiratory failure. 4. Rhinitis. 5. Uncontrolled diabetes. PLAN: 1. Empiric antibiotics. 2. Reduce Lasix to 40 mg daily and DuoNeb every 4 hours. 3. Lovenox for DVT prophylaxis. Time spent 60 minutes. TRANSINT:[id number] Voice Confirmation ID: [id number] DOCUMENT ID: [id number] CAROLINE GUTIERREZ at 1420 CC: [id number] DICTATION DATE: 01/01/182057 SPORTS EQUIPMENT SUPERVISOR: 01/02/18 0124 ADM IN [place] [address] [place] [address]
--- NOTE | ~2017-12-31 | PN ---
PATIENT:YAZAN ANAYA MEDICAL RECORD: [id number] LOCATION:D.[facility] [place] ADMISSION DATE: 12/31/17 PROGRESS NOTE DATE OF SERVICE: 01/02/2018 SUBJECTIVE: This is a 62-year-old man who has had a history of chronic obstructive pulmonary disease. The patient has been coughing and was admitted to the hospital with bibasilar pneumonia. The patient has been on antibiotics. His coughing has improved. He would like to go home and use his nebulizer and maybe oral antibiotics. Denies any fever, chills, nausea, vomiting. PHYSICAL EXAMINATION: GENERAL: A middle-aged man who is in no acute distress, coughing, stating that he has choked on something. VITAL SIGNS: Temperature 97.5, heart rate of 62, respiratory rate of 18, blood pressure 114/66. SHEENT: Unremarkable. CHEST: There is no stridor. There are no wheezes. Mild crackles at coughing. CARDIAC: Exam shows no evidence of jugular venous distention, no murmur or gallops. ABDOMEN: Benign. EXTREMITIES: No clubbing, cyanosis or edema. LABORATORY DATA: Lab exam shows a white count 9.2, hemoglobin 13.8, and platelet counts were 176,000. Chemistry is unremarkable. Creatinine is 1.3, BUN is 18. ASSESSMENT: 1. Acute exacerbation of chronic obstructive pulmonary disease. 2. Pneumonia. 3. Diabetes mellitus, on sliding-scale insulin. PLAN: 1. Continue bronchodilators and antibiotics. 2. DVT prophylaxis. 3. The patient may go home if okay with PCP. TRANSINT:[id number] Voice Confirmation ID: [id number] DOCUMENT ID: [id number] CAROLINE GUTIERREZ at 1242 CC: [id number] DICTATION DATE: 01/02/182027 TELECOMMUNICATIONS FACILITY EXAMINER: 01/03/18 0554 DIS IN 01/03/18 [facility] [address] [place] [address]
[2017-12-31 16:02] LABS: BASOPHILS 0.3 % (0-2); EOSINOPHILS 0 % (0-7); HEMOGLOBIN 14.3 g/dL (13.5-17.5); IMMATURE GRANULOCYTES 0.3 % (0-5); LYMPHOCYTES 15.3 % (15-50); MCH 27.4 pg (26.0-34.0); MCHC 33.3 g/dL (31.0-37.0); MCV 82.5 fL (80.0-100.0); MONOCYTES 2.7 % (2-11); NEUTROPHILS 81.4 % (40-80); PLATELET COUNT 192 10x3/uL (130-400); RBC 5.21 10x6/uL (4.20-6.10); RDW 16.2 % (11.5-14.5); WBC 7.5 10x3/uL (4.8-10.8)
[2017-12-31 16:14] LABS: ALKALINE PHOSPHATASE 138 U/L (46-116); BILIRUBIN - TOTAL 0.99 mg/dL (0.2-1.3); CALCIUM 8.4 mg/dL (8.5-10.1); CARBON DIOXIDE 30.3 mmol/L (21.0-32.0); CHLORIDE - SERUM 97 mmol/L (98-107); POTASSIUM - SERUM 3.7 mmol/L (3.5-5.1); PROTEIN - SERUM 7.5 g/dL (6.4-8.2); SODIUM 133 mmol/L (136-145); UREA NITROGEN 12 mg/dL (7-18); eGFR NON AFRICAN AMERICAN 80 mL/min (90-120)
[2017-12-31 16:16] VITALS: BP 134/68
[2017-12-31 16:21] LABS: ALT (SGPT) 6 U/L (10-68); CALC OSMOLALITY 278 mosm/kg (275-300); GLUCOSE 334 mg/dL (74-106)
[2017-12-31 17:36] VITALS: BP 159/93
[2017-12-31 20:35] VITALS: BP 125/74
[2017-12-31 23:52] VITALS: BP 125/74; BMI 37.5
[2018-01-01 04:18] VITALS: BP 135/72
[2018-01-01 08:43] VITALS: BP 133/77
[2018-01-01 13:04] VITALS: BP 130/70
[2018-01-01 13:43] VITALS: Ht 188 cm; Wt 132.4 kg
[2018-01-01 16:24] VITALS: BP 112/58
[2018-01-01 21:16] VITALS: BP 108/62
[2018-01-02 04:12] LABS: BASOPHILS 0.1 % (0-2); EOSINOPHILS 0 % (0-7); HEMATOCRIT 41.6 % (42.0-54.0); HEMOGLOBIN 13.8 g/dL (13.5-17.5); IMMATURE GRANULOCYTES 0.2 % (0-5); LYMPHOCYTES 22.7 % (15-50); MCH 27.9 pg (26.0-34.0); MCHC 33.2 g/dL (31.0-37.0); MCV 84.2 fL (80.0-100.0); MEAN PLATELET VOLUME 12.2 fL (7.4-10.4); MONOCYTES 6.6 % (2-11); NEUTROPHILS 70.4 % (40-80); PLATELET COUNT 176 10x3/uL (130-400); RBC 4.94 10x6/uL (4.20-6.10); RDW 16.1 % (11.5-14.5); WBC 9.2 10x3/uL (4.8-10.8)
[2018-01-02 04:27] VITALS: BP 114/66
[2018-01-02 04:35] LABS: ANION GAP 7.1 mmol/L (8-16); BILIRUBIN - TOTAL 0.65 mg/dL (0.2-1.3); CALCIUM 8.6 mg/dL (8.5-10.1); CARBON DIOXIDE 32.4 mmol/L (21.0-32.0); POTASSIUM - SERUM 3.5 mmol/L (3.5-5.1); PROTEIN - SERUM 7.3 g/dL (6.4-8.2)
[2018-01-02 04:37] LABS: CREATININE - SERUM 1.3 mg/dL (0.6-1.3)
[2018-01-02 21:06] VITALS: BP 139/80
[2018-01-03 04:24] LABS: BASOPHILS 0.2 % (0-2); EOSINOPHILS 0.2 % (0-7); HEMATOCRIT 43.4 % (42.0-54.0); IMMATURE GRANULOCYTES 0.3 % (0-5); MCH 27.5 pg (26.0-34.0); MCHC 32.3 g/dL (31.0-37.0); MCV 85.1 fL (80.0-100.0); MEAN PLATELET VOLUME 12.2 fL (7.4-10.4); MONOCYTES 8.7 % (2-11); NEUTROPHILS 68.6 % (40-80); PLATELET COUNT 160 10x3/uL (130-400); RDW 16.1 % (11.5-14.5); WBC 8.6 10x3/uL (4.8-10.8)
[2018-01-03 04:57] LABS: ALBUMIN 2.8 g/dL (3.4-5.0); ALKALINE PHOSPHATASE 107 U/L (46-116); CALC OSMOLALITY 285 mosm/kg (275-300); CALCIUM 8.2 mg/dL (8.5-10.1); CARBON DIOXIDE 35.6 mmol/L (21.0-32.0); CHLORIDE - SERUM 98 mmol/L (98-107); GLUCOSE 260 mg/dL (74-106); POTASSIUM - SERUM 3.7 mmol/L (3.5-5.1); SODIUM 138 mmol/L (136-145); UREA NITROGEN 15 mg/dL (7-18); eGFR NON AFRICAN AMERICAN 80 mL/min (90-120)
[2018-01-03 05:01] LABS: ALT (SGPT) 8 U/L (10-68)
[2018-01-03 09:00] VITALS: BP 127/85
[2018-01-03 11:45] VITALS: BP 119/71
[2018-01-03] MEDS ORDERED: OMNICEF300 MG PO (14:34)
[2018-01-03] MEDS ORDERED: PREDNISONE10 MG PO (14:34)
[2018-01-03 15:46] VITALS: BP 141/87
== END 2018-01-03 16:57 | disposition home or self-care (01) | DRG 190 ==
LOC: D.ER 14:57 → D.MS 18:06 → D.EDHOLD 18:06 → D.MS 18:22
PROVIDERS: Emergency Medicine; Family Medicine; Internal Medicine
DX: J44.0 Chronic obstructive pulmonary disease with (acute) lower respiratory infection (principal); J18.9 Pneumonia, unspecified organism; J96.11 Chronic respiratory failure with hypoxia; J44.1 Chronic obstructive pulmonary disease with (acute) exacerbation; E11.65 Type 2 diabetes mellitus with hyperglycemia; I11.0 Hypertensive heart disease with heart failure; I50.9 Heart failure, unspecified; I73.9 Peripheral vascular disease, unspecified; J31.0 Chronic rhinitis

== ENCOUNTER 2018-03-05 17:17 | Emergency (ER) | payer MEDICAID ==
[~2018-03-05] VITALS: Ht 188 cm; Wt 134.1 kg
[2018-03-05 17:21] VITALS: Ht 188 cm; Wt 134.1 kg
[2018-03-05] MEDS ORDERED: ZESTRIL10 MG PO (17:26)
[2018-03-05] MEDS ORDERED: SPIRIVA18 MCG INH (17:26)
[2018-03-05] MEDS ORDERED: BASAGLAR K100 UNIT/1 SC (17:27)
[2018-03-05] MEDS ORDERED: NOVOLOG100 UNIT/1 SQ (17:27)
[2018-03-05] MEDS ORDERED: LEVAQUIN750 MG PO (17:27)
[2018-03-05] MEDS ORDERED: SYMBICORT 16010.2 GM INH (17:28)
[2018-03-05 18:27] LABS: BASOPHILS 0.3 % (0-2); EOSINOPHILS 0 % (0-7); HEMATOCRIT 40.6 % (42.0-54.0); HEMOGLOBIN 13.4 g/dL (13.5-17.5); IMMATURE GRANULOCYTES 0.1 % (0-5); LYMPHOCYTES 19.8 % (15-50); MCH 27.5 pg (26.0-34.0); MCV 83.4 fL (80.0-100.0); MEAN PLATELET VOLUME 10.9 fL (7.4-10.4); MONOCYTES 5.6 % (2-11); NEUTROPHILS 74.2 % (40-80); RBC 4.87 10x6/uL (4.20-6.10); RDW 16.1 % (11.5-14.5); WBC 9.7 10x3/uL (4.8-10.8)
[2018-03-05 18:32] LABS: PLATELET COUNT 223 10x3/uL (130-400)
[2018-03-05 18:45] LABS: ALKALINE PHOSPHATASE 116 U/L (46-116); ALT (SGPT) 8 U/L (10-68); BILIRUBIN - TOTAL 0.73 mg/dL (0.2-1.3); CALC OSMOLALITY 275 mosm/kg (275-300); CARBON DIOXIDE 32.1 mmol/L (21.0-32.0); CHLORIDE - SERUM 100 mmol/L (98-107); CREATININE - SERUM 0.8 mg/dL (0.6-1.3); GLUCOSE 87 mg/dL (74-106); POTASSIUM - SERUM 4.1 mmol/L (3.5-5.1); PROTEIN - SERUM 7.4 g/dL (6.4-8.2); SODIUM 139 mmol/L (136-145); UREA NITROGEN 10 mg/dL (7-18); eGFR NON AFRICAN AMERICAN > 90 mL/min (90-120)
[2018-03-05 18:56] LABS: CKMB 1.4 U/L (0.0-3.6); CREATINE KINASE 139 UL (21-232); PRO BNP 1728 pg/mL (0-125); TROPONIN-I < 0.017 ng/mL (0.000-0.060)
[2018-03-05 22:36] VITALS: BP 122/69
== END 2018-03-05 21:14 | disposition home or self-care (01) ==
LOC: D.ER 17:17
PROVIDERS: Family Medicine
DX: J44.1 Chronic obstructive pulmonary disease with (acute) exacerbation (principal); E11.9 Type 2 diabetes mellitus without complications; F17.200 Nicotine dependence, unspecified, uncomplicated

== ENCOUNTER 2018-06-05 13:17 | Inpatient (IN) | payer MEDICAID ==
[~2018-06-05] VITALS: Ht 188 cm; Wt 136.8 kg
[~2018-06-05 13:17] MED LIST changes: +BASAGLAR K100 UNIT/1 SC; +NOVOLOG100 UNIT/1 SQ; +SPIRIVA18 MCG INH; +SYMBICORT 16010.2 GM INH; +ZESTRIL10 MG PO
[2018-06-05 14:00] LABS: APTT 28.1 SECONDS (22.8-39.4); INR 1.19 (0.85-1.17); PROTIME 14.6 SECONDS (11.6-15.0)
[2018-06-05 14:01] LABS: D-DIMER-QUANTITATIVE 0.81 ug/mLFEU (0.20-0.54)
[2018-06-05 14:17] LABS: ALBUMIN 2.9 g/dL (3.4-5.0); ALKALINE PHOSPHATASE 120 U/L (46-116); ALT (SGPT) 10 U/L (10-68); BILIRUBIN - TOTAL 0.95 mg/dL (0.2-1.3); CALCIUM 8.6 mg/dL (8.5-10.1); CARBON DIOXIDE 30.5 mmol/L (21.0-32.0); CHLORIDE - SERUM 103 mmol/L (98-107); CREATINE KINASE 71 UL (21-232); CREATININE - SERUM 0.9 mg/dL (0.6-1.3); POTASSIUM - SERUM 3.7 mmol/L (3.5-5.1); PRO BNP 1050 pg/mL (0-125); PROTEIN - SERUM 7.4 g/dL (6.4-8.2); SODIUM 142 mmol/L (136-145); UREA NITROGEN 16 mg/dL (7-18); eGFR NON AFRICAN AMERICAN > 90 mL/min (90-120)
[2018-06-05 14:26] LABS: CALC OSMOLALITY 280 mosm/kg (275-300); GLUCOSE 44 mg/dL (74-106); TROPONIN-I < 0.017 ng/mL (0.000-0.060)
[2018-06-05 14:27] LABS: BASOPHILS 0.2 % (0-2); EOSINOPHILS 2.4 % (0-7); HEMATOCRIT 40.5 % (42.0-54.0); HEMOGLOBIN 13.2 g/dL (13.5-17.5); IMMATURE GRANULOCYTES 0.2 % (0-5); MCH 27.7 pg (26.0-34.0); MCHC 32.6 g/dL (31.0-37.0); MCV 85.1 fL (80.0-100.0); MEAN PLATELET VOLUME 11.2 fL (7.4-10.4); MONOCYTES 6.6 % (2-11); NEUTROPHILS 75.6 % (40-80); PLATELET COUNT 219 10x3/uL (130-400); RBC 4.76 10x6/uL (4.20-6.10); RDW 15.5 % (11.5-14.5); WBC 12.7 10x3/uL (4.8-10.8)
--- NOTE | 2018-06-05 21:23 | NUR ---
AZITHROMYCIN 500MG IVPB STOP TIME 1944
--- NOTE | 2018-06-06 00:02 | NUR ---
REPROT GIVEN TO CONSANDRA ON MED II
--- NOTE | 2018-06-06 01:10 | NUR ---
RECEIVED PT FROM ER STAFF BY MONICA. PT IS ALERT AND HAVING SOME SOB. PT IS ON 7 LITERS OF O2. PT HAS A IV IN THE RT AC. BED IN LOW POSITION WITH CALL LIGHT. WILL CONTINUE TO MONITOR PT AND FOLLOW PLAN OF CARE.
--- NOTE | 2018-06-06 03:54 | NUR ---
RN NOTE: PATIENT RESTING COMFORTABLY IN BED. RESPIRATIONS ARE EVEN AND UNLABORED. NO S/S OF DISTRESS. CALL LIGHT WITHIN REACH. WILL CPOC.
--- NOTE | 2018-06-06 04:22 | NUR ---
PT IS ALERT LAYING IN THE BED WATCHING TV. NO C/O VOICED AT THIS TIME. BED IN THE LOW POSITION WITH CALL LIGHT IN REACH. WILL CONTINUE TO MONITOR PT AND FOLLOW PLAN OF CARE
[2018-06-06 04:38] VITALS: BP 112/56
[2018-06-06 04:57] VITALS: BP 112/56; BMI 38.3
[2018-06-06 04:58] LABS: BASOPHILS 0.1 % (0-2); EOSINOPHILS 0 % (0-7); HEMATOCRIT 39.8 % (42.0-54.0); IMMATURE GRANULOCYTES 0.2 % (0-5); LYMPHOCYTES 6.2 % (15-50); MCH 27.7 pg (26.0-34.0); MCHC 32.7 g/dL (31.0-37.0); MCV 84.7 fL (80.0-100.0); MEAN PLATELET VOLUME 11.2 fL (7.4-10.4); MONOCYTES 0.5 % (2-11); PLATELET COUNT 196 10x3/uL (130-400); RDW 15.4 % (11.5-14.5)
[2018-06-06 05:04] LABS: WBC 8.7 10x3/uL (4.8-10.8)
[2018-06-06 05:12] LABS: ALBUMIN 2.8 g/dL (3.4-5.0); ANION GAP 15.1 mmol/L (8-16); BILIRUBIN - TOTAL 0.91 mg/dL (0.2-1.3); CALCIUM 8.2 mg/dL (8.5-10.1); CARBON DIOXIDE 26.2 mmol/L (21.0-32.0); CREATININE - SERUM 1.1 mg/dL (0.6-1.3); MAGNESIUM - SERUM 1.9 mg/dL (1.8-2.4); PROTEIN - SERUM 7.3 g/dL (6.4-8.2)
[2018-06-06 05:16] LABS: POTASSIUM - SERUM 4.3 mmol/L (3.5-5.1)
--- NOTE | 2018-06-06 05:36 | NUR ---
LAB CALLED TO REPORT A CRITICAL GLUCOSE OF 447. PT MAR HAD A ORDER FOR HUMALOG AND HUMULIN. I CALLED AND NOTIFIED NURSE PRACTIONER BIANKA BOYLE. SHE STATES TO USE THE HUMALOG SLIDING SCALE AND TO D/C THE HUMULIN REG SCALE.
--- NOTE | 2018-06-06 07:36 | NUR ---
REPORT RECEIVED. WILL CONTINUE WITH POC. PT CURRENTLY LYING SUPINE. CALL LIGHT W/I REACH. RR EVEN AND UNLABORED ON 7L HIGH FLOW NC. R.AC AND L.HAND PIV'S ARE SALINE LOCKED. PT IS AAO AND UP WITH ASSIST. FEMI VELA IS CURRENTLY GETTING PT'S VS. PT DENIES ANY NEEDS AT THIS TIME. WILL CTM.
[2018-06-06 08:19] VITALS: BP 106/56
--- NOTE | 2018-06-06 10:30 | NUR ---
RESTS IN BED WITH EYES CLOSED. RESP UL ON . CALL LIGHT IN REACH. WILL CONT. PLAN OF CARE.
--- NOTE | 2018-06-06 11:03 | MORECARE ---
CASE MANAGEMENT DISCHARGE SUMMARY PATIENT: YAZAN ANAYA UNIT: [id number] ADM DATE: 06/05/18 AGE: 62 : 54 SEX: M ROOM/BED: D.2135 AUTHOR: SB CHU PHYSICIAN: REFERRING PHYSICIAN: MELECIO PANCHAL DO DATE OF SERVICE: 06/06/18 Discharge Plan Patient Name: YAZAN ANAYA [facility] [facility] 1955 Planned Disposition: Anticipated Discharge Date: Discharge Date: Expected LOS: Initial Reviewer: [email or web address] Initial Review Date: 06/05/2018 Generated: 06/06/18 12:03 pm Patient Name: YAZAN ANAYA Page [id number] at 1103 All edits/amendments must be made on the electronic document DICTATION DATE: 06/06/181101 AVIATION PROJECT MANAGER: JUSTIN 06/06/18 110 RPT#: [id number] DC DATE: STATUS: ADM IN [facility] [address] [place] [address] END OF REPORT
--- NOTE | 2018-06-06 11:41 | NUR ---
PT FSBS WAS 462 @1130. ADMINISTERED ORDERED DOSE OF 12 UNTIS AND NOTIFIED . RECEIVED ORDERS TO CHANGE TO INTERMEDIATE SLIDING SCALE.
[2018-06-06 12:04] VITALS: BP 100/48
--- NOTE | 2018-06-06 13:15 | NUR ---
WEATHERIZATION ADMINISTRATOR NOT COMPLETED LAST NIGHT ON NIGHTSHIFT. NOTIFIED CHARGE NURSE.
[2018-06-06 13:27] VITALS: Ht 188 cm; Wt 136.8 kg
[2018-06-06 16:41] VITALS: BP 109/55
--- NOTE | 2018-06-06 17:11 | NUR ---
FSBS READING @1700 WAS HI. NOTIFIED PHYSICIAN AND ORDERED A STAT SERUM GLUCOSE. WILL TREAT AND CTM.
--- NOTE | 2018-06-06 19:20 | NUR ---
RESUMING CARE.PT LAYING I BED A&O O2 ON 7L NC IV RT AC, URINAL AT BEDSIDE NO C/O OF PAIN OR DISTRESS AT THIS TIME CL IN REACH WILL CONT TO MONITOR
[2018-06-06 20:41] VITALS: BP 104/49
--- NOTE | 2018-06-06 22:08 | NUR ---
BS VIA LAB DRAW 447 SPOKE WITH BIANKA BASURTO ON ALL ADVISED TO FOLLOW SLIDINF SCALE GAVE 28UNITS OF HUMANGELIAOG
[2018-06-07] VITALS: BP 94/56
[2018-06-07 04:55] VITALS: BP 107/54
--- NOTE | 2018-06-07 05:29 | NUR ---
BS 202 12 UNITS OG HUMALOG GIVEN PER SLIDING SCALE
[2018-06-07 06:40] LABS: ALBUMIN 2.8 g/dL (3.4-5.0); ALKALINE PHOSPHATASE 105 U/L (46-116); ALT (SGPT) 11 U/L (10-68); BILIRUBIN - TOTAL 0.45 mg/dL (0.2-1.3); CALCIUM 8.5 mg/dL (8.5-10.1); CARBON DIOXIDE 28.7 mmol/L (21.0-32.0); CHLORIDE - SERUM 104 mmol/L (98-107); MAGNESIUM - SERUM 2.3 mg/dL (1.8-2.4); POTASSIUM - SERUM 3.9 mmol/L (3.5-5.1); PROTEIN - SERUM 7.1 g/dL (6.4-8.2); SODIUM 142 mmol/L (136-145); UREA NITROGEN 22 mg/dL (7-18); eGFR NON AFRICAN AMERICAN 80 mL/min (90-120)
[2018-06-07 06:47] LABS: CALC OSMOLALITY 292 mosm/kg (275-300); GLUCOSE 218 mg/dL (74-106)
[2018-06-07 08:23] VITALS: BP 105/56
[2018-06-07 08:24] LABS: BASOPHILS 0 % (0-2); EOSINOPHILS 0 % (0-7); HEMATOCRIT 37.8 % (42.0-54.0); HEMOGLOBIN 12.2 g/dL (13.5-17.5); IMMATURE GRANULOCYTES 0.4 % (0-5); LYMPHOCYTES 5.4 % (15-50); MCH 27.6 pg (26.0-34.0); MCHC 32.3 g/dL (31.0-37.0); MCV 85.5 fL (80.0-100.0); MEAN PLATELET VOLUME 11.4 fL (7.4-10.4); MONOCYTES 3.8 % (2-11); NEUTROPHILS 90.4 % (40-80); PLATELET COUNT 193 10x3/uL (130-400); RBC 4.42 10x6/uL (4.20-6.10); RDW 15.5 % (11.5-14.5); WBC 11.3 10x3/uL (4.8-10.8)
--- NOTE | 2018-06-07 10:35 | NUR ---
UP GIVEN BY RT. CALL LIGHT IN REACH. WILL CONT. PLAN OF CARE.
[2018-06-07 15:30] VITALS: BP 110/61
--- NOTE | 2018-06-07 19:45 | NUR ---
RESUMING CARE, PT LAYING IN BED A&O , O2 ON AT 7L NC, IV RT AC, NO C/O OF PAIN OR DISTRESS AT THIS TIME CL IN REACH WILL CONT TO MONITOR
[2018-06-07 20:00] VITALS: BP 103/34
[2018-06-08] VITALS: BP 109/49
--- NOTE | 2018-06-08 02:57 | NUR ---
LYING IN BED, CALL LIGHT IN REACH. WILL CONTINUE WITH PLAN OF CARE.
--- NOTE | 2018-06-08 04:13 | NUR ---
RESITED IV TO LFT FA
[2018-06-08 07:50] LABS: ALBUMIN 2.8 g/dL (3.4-5.0); ANION GAP 10.8 mmol/L (8-16); BILIRUBIN - TOTAL 0.51 mg/dL (0.2-1.3); CALCIUM 8.3 mg/dL (8.5-10.1); CARBON DIOXIDE 31.1 mmol/L (21.0-32.0); CREATININE - SERUM 1.1 mg/dL (0.6-1.3); MAGNESIUM - SERUM 2.3 mg/dL (1.8-2.4); POTASSIUM - SERUM 3.9 mmol/L (3.5-5.1)
[2018-06-08 07:51] LABS: BASOPHILS 0 % (0-2); EOSINOPHILS 0 % (0-7); HEMATOCRIT 38.3 % (42.0-54.0); HEMOGLOBIN 12.1 g/dL (13.5-17.5); IMMATURE GRANULOCYTES 0.3 % (0-5); LYMPHOCYTES 7.3 % (15-50); MCH 27.3 pg (26.0-34.0); MCHC 31.6 g/dL (31.0-37.0); MCV 86.5 fL (80.0-100.0); MEAN PLATELET VOLUME 11.4 fL (7.4-10.4); MONOCYTES 2.4 % (2-11); PLATELET COUNT 193 10x3/uL (130-400); RBC 4.43 10x6/uL (4.20-6.10); RDW 15.4 % (11.5-14.5); WBC 10.6 10x3/uL (4.8-10.8)
[2018-06-08 08:14] VITALS: BP 116/65
--- NOTE | 2018-06-08 08:33 | NUR ---
0700-ROUNDING DONE WITH PATIENT STATING "IF ONE MORE PERSON COMES IN AND TELLS ME GOOD MORNING I AM GOING TO YELL". ON 7L PER HIGH FLOW NASAL CANNULA. OBESE. LEFT FA PIV SEEN WITH SAlINE LOCK. ON EP WITH K+ 3.9. RIGHT AND LEFT FEET ARE SEEN WITH DRESSINGS TO GREAT TOE AREA, COVERED WITH STOCKINGNETTE. WILL MONITOR. HAS GLASSES ON.
--- NOTE | 2018-06-08 10:07 | NUR ---
THERE IS A NURSING MESSAGE DATED 06/07/18 TO VERIFY HOME MEDS, THIS WAS NOT DONE ON ADMIT ON 06/05/18. I RELAYED THIS INFO TO RADHA COOPER, FRAMING MANAGER AND SHE STATES THAT SHE WILL DO IT.
[2018-06-08 11:41] VITALS: BP 120/63
--- NOTE | 2018-06-08 13:05 | NUR ---
Nutrition follow-up: Diet: ADA consistent CHO with nectar thick liquids per speech PO Intake ~100% of most meals labs reviewed; glucose under better control Wt: 292# RDN following.
[2018-06-08 15:04] VITALS: BP 119/69
--- NOTE | 2018-06-08 15:18 | NUR ---
PATIENT IS ON STRICT I AND O. REQUESTING LARGE ICE WATER AND MARBIN CRACKERS. GIVEN.
--- NOTE | 2018-06-08 17:05 | MORECARE ---
CASE MANAGEMENT DISCHARGE SUMMARY PATIENT: YAZAN ANAYA UNIT: [id number] ADM DATE: 06/05/18 AGE: 62 : 54 SEX: M ROOM/BED: D.0910 AUTHOR: SB CHU PHYSICIAN: REFERRING PHYSICIAN: MELECIO PANCHAL DO DATE OF SERVICE: 06/08/18 Discharge Plan Patient Name: YAZAN ANAYA Facility: [facility]:[place] : 1955 Planned Disposition: Home Anticipated Discharge Date: 06/08/18 Discharge Date: Expected LOS: 3 Initial Reviewer: [email or web address] Initial Review Date: 06/05/2018 Generated: 06/08/18 6:05 pm Comments DCP- Discharge Planning Updated by [id number]: Yazan Oconnell on 06/08/18 4:[address] Patient Name: YAZAN ANAYA Admission Status: ER Accout number: [id number] Admission Date: 06-05-2018 : 1955 Admission Diagnosis:SHORTNESS OF BREATH Attending: MELECIO PANCHAL Current LOS: 3 Anticipated DC Date: 06-08-2018 Planned Disposition: Home Primary Insurance: MEDICAID [place] Discharge Planning Comments: CM MET WITH PT IN ROOM TO DISCUSS DISCHARGE PLANNING AND NEEDS. PT REPORTS LIVING AT HOME ALONE. PT REPORTS HAVING CAREGIVERS FROM ALL AGES HOME CARE FOR BATHING ASSISTANCE ON MONDAY, MONDAY, MONDAY, AND MONDAY, 8AM TO 3PM.. PT REPORTS HAVING CPAP, GLUCOMETER, NEBULIZER, HOME AND PORTABLE OXYGEN, WALKER AND WHEELCHAIR FROM [facility] PATIENT. CM DISCUSSED AVAILABILITY OF HOME HEALTH, REHAB SERVICES AND MEDICAL EQUIPMENT. PT DENIES DISCHARGE NEEDS, STATES HE HAS AIDE SERVICE AND NEEDS NOTHING FURTHER. PT REPORTS HIS COUSIN WILL PICK HIM UP FOR DISCHARGE HOME. PT PLANS TO DISCHARGE HOME ALONE, HAS AIDE SERVICES OF APPROXIMATELY 24 HOURS WEEKLY FROM ALL AGES HOME CARE. PT DENIES DISCHARGE NEEDS, STATES HIS COUSIN WILL PICK HIM UP FOR DISCHARGE HOME. Word Processing Specialist: Yazan Oconnell DCPIA - Discharge Planning Initial Assessment Updated by [email or web address]: Yazan Oconnell on 06/08/18 5:03 pm * Is the patient Alert and Oriented? Yes * How many steps to enter\exit or inside your home? NONE * PCP DR. MCINTYRE * Pharmacy [facility] IN [place] * Preadmission Environment Home Alone * ADLs Partial Dependent * Partial ADLs (Assistance needed) Ambulation Bathing * Equipment CPAP Glucometer Nebulizer Oxygen Walker Wheelchair * Other Equipment HOME AND PORTABLE OXYGEN [facility] PATIENT - MEDICAL EQUIPMENT PROVIDER * List name and contact numbers for known caregivers / representatives who currently or will assist patient after discharge: GELA HENDERSON, * Verbal permission to speak to the caregivers and representatives has been obtained from the patient. N/A * Community resources currently utilized Private Duty Care * Please name any agencies selected above. [facility], M,T,W,F 8AM TO 3PM * Additional services required to return to the preadmission environment? No * Can the patient safely return to the preadmission environment? Yes * Has this patient been hospitalized within the prior 30 days at any hospital? No Last DP export: 06/06/18 10:03 a Patient Name: YAZAN ANAYA Page [phone] at 1705 All edits/amendments must be made on the electronic document DICTATION DATE: 06/08/181704 PHARMACEUTICAL LABORATORY TECHNICIAN: JUSTIN 06/08/181704 RPT#: [id number] DC DATE: STATUS: ADM IN [facility] [address] [place] [address] END OF REPORT
--- NOTE | 2018-06-08 18:38 | NUR ---
PATIENT IS UNSURE OF THE DOSE OF MEDICTIONS THAT HE TAKES. THE PHARMACY IS OPEN TOMORROW TIL 1330 SO I WILL PASS IN REPORT TO PLEASE CALL AND GET A LIST. THIS WILL BE PASSED TO THE NEXT NURSE.
--- NOTE | 2018-06-08 20:00 | NUR ---
PT ALERT AND ORIENTED. PT DENIES ANY NEEDS OR PAIN OR NEEDS AT THIS TIME. BED LOW CALL LIGHT WITHIN REACH. WILL CONTINUE TO MONITOR.
[2018-06-08 21:18] VITALS: BP 126/51
[2018-06-09 01:19] VITALS: BP 136/46
[2018-06-09 01:42] VITALS: BP 118/55
--- NOTE | 2018-06-09 01:45 | NUR ---
RN NOTE - PT RESTING IN BED WITH EYES CLOSED. RR EVEN AND UNLABORED, NO S/S OF DISTRESS. VSS. CL IN REACH, SR UP X2, BED IN LOWEST POSITION.
--- NOTE | 2018-06-09 04:32 | NUR ---
PT RESTING IN BED COMFORTABLY. RESPIRATIONS EVEN AND UNLABORED. BED LOW SIDE RAILS UP X2. CALL LIGHT WITHIN REACH. WILL CONTINUE TO MONITOR.
[2018-06-09 05:22] VITALS: BP 116/62
[2018-06-09 06:36] LABS: BASOPHILS 0 % (0-2); EOSINOPHILS 0 % (0-7); HEMATOCRIT 39.2 % (42.0-54.0); HEMOGLOBIN 12.5 g/dL (13.5-17.5); IMMATURE GRANULOCYTES 0.2 % (0-5); LYMPHOCYTES 7.5 % (15-50); MCH 27.4 pg (26.0-34.0); MCHC 31.9 g/dL (31.0-37.0); MCV 85.8 fL (80.0-100.0); MEAN PLATELET VOLUME 11.4 fL (7.4-10.4); MONOCYTES 3.1 % (2-11); NEUTROPHILS 89.2 % (40-80); PLATELET COUNT 177 10x3/uL (130-400); RBC 4.57 10x6/uL (4.20-6.10); RDW 15.2 % (11.5-14.5); WBC 8.8 10x3/uL (4.8-10.8)
--- NOTE | 2018-06-09 07:00 | NUR ---
RECEIVED REPORT. ASSUMED CARE OF PATIENT. CALL LIGHT WITHIN REACH. PATIENT REQUESTING FRESH ICE WATER. DRY COUGH NOTED. RESP EVEN AND UNLABORED. NO DISTRESS.
[2018-06-09 07:12] LABS: ALBUMIN 2.9 g/dL (3.4-5.0); ALKALINE PHOSPHATASE 101 U/L (46-116); ALT (SGPT) 12 U/L (10-68); BILIRUBIN - TOTAL 0.68 mg/dL (0.2-1.3); CALC OSMOLALITY 293 mosm/kg (275-300); CALCIUM 8.1 mg/dL (8.5-10.1); CARBON DIOXIDE 33.1 mmol/L (21.0-32.0); CHLORIDE - SERUM 99 mmol/L (98-107); CREATININE - SERUM 0.9 mg/dL (0.6-1.3); GLUCOSE 337 mg/dL (74-106); MAGNESIUM - SERUM 2.4 mg/dL (1.8-2.4); POTASSIUM - SERUM 4.1 mmol/L (3.5-5.1); PROTEIN - SERUM 6.8 g/dL (6.4-8.2); SODIUM 138 mmol/L (136-145); UREA NITROGEN 26 mg/dL (7-18); eGFR NON AFRICAN AMERICAN > 90 mL/min (90-120)
[2018-06-09 07:50] VITALS: BP 123/65
--- NOTE | 2018-06-09 08:50 | NUR ---
LEFT UNIT VIA WHEELCHAIR FOR MRI ON FOOT.
--- NOTE | 2018-06-09 09:49 | NUR ---
PATIENT REMAINS OFF UNIT IN MRI.
--- NOTE | 2018-06-09 11:30 | NUR ---
FSBS 316. 20 UNITS HUMALOG ADMINISTERED PER SLIDING SCALE. NO DISTRESS. FRESH H20 PROVIDED.
--- NOTE | 2018-06-09 12:14 | NUR ---
FRESH ICE PROVIDED UPON REQUEST.
[2018-06-09 13:43] VITALS: BP 134/67
--- NOTE | 2018-06-09 15:58 | NUR ---
22 GAUGE IV PLACED TO LEFT HAND X 1 STICK. GOOD BLOOD RETURN, EASY FLUSH. TAPED, DATED, AND SECURED. TOLERATED IV WELL. 22 GAUGE IV REMOVED FROM LEFT FOREARM. CATHETER TIP INTACT. NO BLEEDING FROM SITE. 2X2 GAUZE APPLIED AND SECURED WITH TAPE. FRESH ICE WATER APPLIED AT THIS TIME. NO DISTRESS.
--- NOTE | 2018-06-09 17:07 | NUR ---
FSBS 363. 20 UNITS HUMALOG ADMINISTERED PER SLIDING SCALE.
--- NOTE | 2018-06-09 20:00 | NUR ---
INITIAL ROUNDS AND ASSESSMENT COMPLETED. SR PER TELEMETRY. HIGH FLOW O2 @ 5L/NC WITH WEANING TO TRY AND GET HIM DOWN TO 4L/NC WHICH IS HIS HOME RATE. SALINE LOCK TO LEFT HAND. DRESSINGS C/D/I TO BILATERAL FEET. BEING SEEN BY DR NICHOLAS FOR WOUNDS. MONITOR AND CPOC.
[2018-06-09 20:30] VITALS: BP 123/71
--- NOTE | 2018-06-09 23:56 | NUR ---
RESTING IN BED WITH NO DISTRESS. RESPS NONLABORED. CALL LIGHT IN REACH. MONITOR AND CPOC.
[2018-06-10 00:30] VITALS: BP 130/69
[2018-06-10 04:30] VITALS: BP 142/66
[2018-06-10 06:27] LABS: BASOPHILS 0 % (0-2); EOSINOPHILS 0 % (0-7); HEMATOCRIT 41.9 % (42.0-54.0); HEMOGLOBIN 13.4 g/dL (13.5-17.5); IMMATURE GRANULOCYTES 0.5 % (0-5); LYMPHOCYTES 7.9 % (15-50); MCH 27.5 pg (26.0-34.0); MCV 85.9 fL (80.0-100.0); MEAN PLATELET VOLUME 11.1 fL (7.4-10.4); MONOCYTES 2.2 % (2-11); NEUTROPHILS 89.4 % (40-80); PLATELET COUNT 186 10x3/uL (130-400); RBC 4.88 10x6/uL (4.20-6.10); WBC 7.8 10x3/uL (4.8-10.8)
[2018-06-10 07:01] LABS: ALBUMIN 2.9 g/dL (3.4-5.0); ALKALINE PHOSPHATASE 104 U/L (46-116); BILIRUBIN - TOTAL 0.82 mg/dL (0.2-1.3); CALC OSMOLALITY 292 mosm/kg (275-300); CALCIUM 8.1 mg/dL (8.5-10.1); CARBON DIOXIDE 33.7 mmol/L (21.0-32.0); CHLORIDE - SERUM 97 mmol/L (98-107); CREATININE - SERUM 0.9 mg/dL (0.6-1.3); GLUCOSE 347 mg/dL (74-106); MAGNESIUM - SERUM 2.3 mg/dL (1.8-2.4); POTASSIUM - SERUM 4.4 mmol/L (3.5-5.1); PROTEIN - SERUM 6.8 g/dL (6.4-8.2); SODIUM 137 mmol/L (136-145); UREA NITROGEN 26 mg/dL (7-18); eGFR NON AFRICAN AMERICAN > 90 mL/min (90-120)
[2018-06-10 07:05] LABS: ALT (SGPT) 17 U/L (10-68)
[2018-06-10 07:25] VITALS: BP 124/69
--- NOTE | 2018-06-10 16:00 | NUR ---
ALERT AND ORIENTED X4. SITTING UP IN BED. NO CHANGE. DENIES ANY NEEDS AT THIS TIME. CONTINUE PLAN OF CARE AND SAFETY PRECAUTIONS.
--- NOTE | 2018-06-10 19:30 | NUR ---
PT IS RESTING IN BED WITH EYES OPEN. ALERT AND ORIENTED X3. DENIES ANY PAIN OR DISCOMFORT AT THIS TIME. O2 IS ON @ 5LPM PER OXIMISER. NO SOB NOTED. LEFT HAND SALINE LOCK IS INTACT. TELEMETRY UNIT IS ON AND INTACT. DRESSINGS TO LYNDSEY FEET ARE CDI. SR'S ARE UP X 3 IN BED. CALL LIGHT AND BEDSIDE TABLE ARE WITHIN EASY REACH.
[2018-06-10 21:41] VITALS: BP 132/54
--- NOTE | 2018-06-10 22:36 | NUR ---
PT IS RESTING QUIETLY IN BED WITH EYES CLOSED. RESPS ARE EVEN AND UNLABORED. NO ACUTE DISTRESS NOTED.
[2018-06-11 00:43] VITALS: BP 113/61
--- NOTE | 2018-06-11 00:56 | NUR ---
PT RESTING IN BED WITH EYES CLOSED.
[2018-06-11 04:17] VITALS: BP 109/58
[2018-06-11 05:54] LABS: BASOPHILS 0 % (0-2); EOSINOPHILS 0 % (0-7); HEMATOCRIT 41.7 % (42.0-54.0); HEMOGLOBIN 13.5 g/dL (13.5-17.5); IMMATURE GRANULOCYTES 0.5 % (0-5); MCH 27.8 pg (26.0-34.0); MCHC 32.4 g/dL (31.0-37.0); MEAN PLATELET VOLUME 11.6 fL (7.4-10.4); MONOCYTES 9.4 % (2-11); NEUTROPHILS 69.1 % (40-80); PLATELET COUNT 199 10x3/uL (130-400); RBC 4.85 10x6/uL (4.20-6.10)
[2018-06-11 05:57] LABS: WBC 14.6 10x3/uL (4.8-10.8)
[2018-06-11 06:16] LABS: ALBUMIN 2.7 g/dL (3.4-5.0); ALKALINE PHOSPHATASE 97 U/L (46-116); ALT (SGPT) 18 U/L (10-68); BILIRUBIN - TOTAL 0.64 mg/dL (0.2-1.3); CALCIUM 7.9 mg/dL (8.5-10.1); CARBON DIOXIDE 36.9 mmol/L (21.0-32.0); CHLORIDE - SERUM 98 mmol/L (98-107); CREATININE - SERUM 0.9 mg/dL (0.6-1.3); PROTEIN - SERUM 6.5 g/dL (6.4-8.2); SODIUM 140 mmol/L (136-145); UREA NITROGEN 26 mg/dL (7-18); eGFR NON AFRICAN AMERICAN > 90 mL/min (90-120)
[2018-06-11 06:18] LABS: CALC OSMOLALITY 286 mosm/kg (275-300); GLUCOSE 144 mg/dL (74-106); POTASSIUM - SERUM 3.6 mmol/L (3.5-5.1)
[2018-06-11 07:45] VITALS: BP 119/66
--- NOTE | 2018-06-11 12:27 | NUR ---
RESP UL ON . IN BED EATING LUNCH. ASHOK NEEDS AT THIS TIME.
[2018-06-11 13:18] VITALS: BP 114/74
--- NOTE | 2018-06-11 16:57 | NUR ---
PT HAS HAD SEVERAL RUNNY STOOLS THAT HAVE A FOUL ODOR. CDIFF STOOL COLLECTED AND AWAITING RESULTS.
[2018-06-11 17:22] VITALS: BP 103/60
[2018-06-11 20:51] VITALS: BP 100/59
--- NOTE | 2018-06-11 22:53 | NUR ---
REST IN BED, CALL LIGHT IN REACH.
--- NOTE | 2018-06-11 22:58 | NUR ---
BATH DONE BY [employer] BROKER.
[2018-06-12 00:02] VITALS: BP 94/55
--- NOTE | 2018-06-12 00:58 | NUR ---
REST QUIELTY IN BED, CALL LIGHT IN REACH.
--- NOTE | 2018-06-12 04:08 | NUR ---
REST QUIELTY IN BED, CALL LIGHT IN REACH.
[2018-06-12 04:42] VITALS: BP 120/66
--- NOTE | 2018-06-12 05:49 | NUR ---
PT FSBS 66 CONCHITA CAMPOS GIVEN.
[2018-06-12 06:20] LABS: BASOPHILS 0 % (0-2); EOSINOPHILS 0.9 % (0-7); HEMATOCRIT 44.3 % (42.0-54.0); HEMOGLOBIN 14.2 g/dL (13.5-17.5); IMMATURE GRANULOCYTES 0.7 % (0-5); LYMPHOCYTES 25.6 % (15-50); MCH 27.7 pg (26.0-34.0); MCHC 32.1 g/dL (31.0-37.0); MCV 86.4 fL (80.0-100.0); MEAN PLATELET VOLUME 11.6 fL (7.4-10.4); MONOCYTES 8.2 % (2-11); NEUTROPHILS 64.6 % (40-80); PLATELET COUNT 201 10x3/uL (130-400); RBC 5.13 10x6/uL (4.20-6.10); RDW 14.9 % (11.5-14.5); WBC 12.8 10x3/uL (4.8-10.8)
--- NOTE | 2018-06-12 06:33 | NUR ---
RECHECKED PT FSBS 89
[2018-06-12 06:49] LABS: ALBUMIN 2.7 g/dL (3.4-5.0); ALKALINE PHOSPHATASE 98 U/L (46-116); ALT (SGPT) 19 U/L (10-68); BILIRUBIN - TOTAL 0.75 mg/dL (0.2-1.3); CALCIUM 7.8 mg/dL (8.5-10.1); CARBON DIOXIDE 38.4 mmol/L (21.0-32.0); CHLORIDE - SERUM 99 mmol/L (98-107); POTASSIUM - SERUM 3.4 mmol/L (3.5-5.1); PROTEIN - SERUM 6.3 g/dL (6.4-8.2); SODIUM 141 mmol/L (136-145); UREA NITROGEN 27 mg/dL (7-18); eGFR NON AFRICAN AMERICAN 80 mL/min (90-120)
[2018-06-12 06:50] LABS: CALC OSMOLALITY 283 mosm/kg (275-300); GLUCOSE 61 mg/dL (74-106)
--- NOTE | 2018-06-12 07:30 | NUR ---
RECEVIED REPORT ON PATIENT. PATIENT IS LAYING ON LEFT SIDE WITH HIGH FLOW NC AR 4L. ON HEART MONITOR SHOWING SR, HR 67. ON EP, K+ IS 3.4. THIS WAS COVERED WITH ORAL SUPPLEMENTS ORDERED AND RE-CHECK ORDER IS PLACED. BILATERAL DRESSINGS SEEN TO FEET, LEFT ONE HAS STOCKINGNETTE, RIGHT ONE DOES NOT. LEFT HAND PIV SEEN WITH SALINE LOCK.
[2018-06-12] MEDS ORDERED: ZITHROMAX250 MG PO (08:46)
--- NOTE | 2018-06-12 11:29 | NUR ---
RE-CHECK OF POTASSIUM WITH RESULTS OF 3.6.
[2018-06-12 11:46] VITALS: BP 107/53
--- NOTE | 2018-06-12 13:14 | MORECARE ---
CASE MANAGEMENT DISCHARGE SUMMARY PATIENT: YAZAN ANAYA UNIT: [id number] ADM DATE: 06/05/18 AGE: 62 : 53 SEX: M ROOM/BED: D.9584 AUTHOR: SB CHU PHYSICIAN: REFERRING PHYSICIAN: MELECIO PANCHAL DO DATE OF SERVICE: 06/12/18 Discharge Plan Patient Name: YAZAN ANAYA Facility: [facility]:[place] : 1955 Planned Disposition: Home Anticipated Discharge Date: 06/12/18 Discharge Date: Expected LOS: 7 Initial Reviewer: [email or web address] Initial Review Date: 06/05/2018 Generated: 06/12/18 2:13 pm Comments DCP- Discharge Planning Updated by [email or web address]: Yazan Oconnell on 06/08/18 4:[address] Patient Name: YAZAN ANAYA Admission Status: ER Accout number: [id number] Admission Date: 06-05-2018 : 1955 Admission Diagnosis:SHORTNESS OF BREATH Attending: MELECIO PANCHAL Current LOS: 3 Anticipated DC Date: 06-08-2018 Planned Disposition: Home Primary Insurance: MEDICAID [place] Discharge Planning Comments: CM MET WITH PT IN ROOM TO DISCUSS DISCHARGE PLANNING AND NEEDS. PT REPORTS LIVING AT HOME ALONE. PT REPORTS HAVING CAREGIVERS FROM ALL AGES HOME CARE FOR BATHING ASSISTANCE ON MONDAY, MONDAY, MONDAY, AND MONDAY, 8AM TO 3PM.. PT REPORTS HAVING CPAP, GLUCOMETER, NEBULIZER, HOME AND PORTABLE OXYGEN, WALKER AND WHEELCHAIR FROM [facility] PATIENT. CM DISCUSSED AVAILABILITY OF HOME HEALTH, REHAB SERVICES AND MEDICAL EQUIPMENT. PT DENIES DISCHARGE NEEDS, STATES HE HAS AIDE SERVICE AND NEEDS NOTHING FURTHER. PT REPORTS HIS COUSIN WILL PICK HIM UP FOR DISCHARGE HOME. PT PLANS TO DISCHARGE HOME ALONE, HAS AIDE SERVICES OF APPROXIMATELY 24 HOURS WEEKLY FROM ALL AGES HOME CARE. PT DENIES DISCHARGE NEEDS, STATES HIS COUSIN WILL PICK HIM UP FOR DISCHARGE HOME. Soa Integration Developer: Yazan Oconnell DCPIA - Discharge Planning Initial Assessment Updated by [id number]: Yazan Oconnell on 06/08/18 5:03 pm * Is the patient Alert and Oriented? Yes * How many steps to enter\exit or inside your home? NONE * PCP DR. MCINTYRE * Pharmacy [facility] IN [place] * Preadmission Environment Home Alone * ADLs Partial Dependent * Partial ADLs (Assistance needed) Ambulation Bathing * Equipment CPAP Glucometer Nebulizer Oxygen Walker Wheelchair * Other Equipment HOME AND PORTABLE OXYGEN [facility] PATIENT - MEDICAL EQUIPMENT PROVIDER * List name and contact numbers for known caregivers / representatives who currently or will assist patient after discharge: GELA HENDERSON, * Verbal permission to speak to the caregivers and representatives has been obtained from the patient. N/A * Community resources currently utilized Private Duty Care * Please name any agencies selected above. [facility], M,T,W,F 8AM TO 3PM * Additional services required to return to the preadmission environment? No * Can the patient safely return to the preadmission environment? Yes * Has this patient been hospitalized within the prior 30 days at any hospital? No External Providers [facility] Next Contact Date: 06/12/2018 Service Request Date: Service Type: Resolution: Reviewer: Comments: Last DP export: 06/08/18 4:05 p Patient Name: YAZAN ANAYA Page [phone] at 1314 All edits/amendments must be made on the electronic document DICTATION DATE: 06/12/181312 SPRAY II PAINTER: JUSTIN 06/12/181312 RPT#: [id number] DC DATE: STATUS: ADM IN [facility] [address] [place] [address] END OF REPORT
--- NOTE | 2018-06-12 13:21 | NUR ---
AWAITING FINAL DISCHARGE PAPERWORK SO PATIENT CAN BE DISCHARGED.
--- NOTE | 2018-06-12 13:21 | MORECARE ---
CASE MANAGEMENT DISCHARGE SUMMARY PATIENT: YAZAN ANAYA UNIT: [id number] ADM DATE: 06/05/18 AGE: 62 : 53 SEX: M ROOM/BED: D.6921 AUTHOR: KIMBERLEY,DOC PHYSICIAN: REFERRING PHYSICIAN: MELECIO PANCHAL DO DATE OF SERVICE: 06/12/18 Discharge Plan Patient Name: YAZAN ANAYA Facility: [facility]:[place] : 1955 Planned Disposition: Home Anticipated Discharge Date: 06/12/18 Discharge Date: Expected LOS: 7 Initial Reviewer: [email or web address] Initial Review Date: 06/05/2018 Generated: 06/12/18 2:21 pm Comments DCP- Discharge Planning Updated by [email or web address]: Yazan Oconnell on 06/12/18 12:[address] Patient Name: YAZAN ANAYA Encounter No: [id number] : 1955 Primary Insurance: MEDICAID [place] Anticipated DC Date: 06-12-2018 Planned Disposition: Home DCP follow-up note: CM RECEIVED HOME HEALTH ORDER, MET WITH PT IN ROOM WHO DENIES NEED FOR HOME HEALTH REPORTING HIS CAREGIVER FROM ALL AGES CAN TAKE CARE OF HIS WOUNDS. CM EXPLAINED THE DIFFERENCE BETWEEN HOME HEALTH CARE HOME AND PERSONAL CARE. PT WILL ACCEPT HOME HEALTH, REPORTS HE CANNOT USE [facility] OR [facility] HE WAS FIRED FROM BOTH FOR ALLEGEDLY TRYING TO [facility] THE HOME HEALTH NURSE, WHICH PT REPORTS IS NOT TRUE. PT WOULD LIKE TO TRY HOME HEALTH WITH [facility]. CHOICE SIGNED, PT REPORTS HIS RIDE IS ON THE WAY TO PICK HIM UP NOW. PT DENIES FURTHER NEEDS. CM CALLED [employer], , SPOKE TO [place]E, REFERRAL PROVIDED WITH HISTORY OF PRIOR HOME HEALTH PROVIDED BY PT. PT PLACED ON SCHEDULE FOR MONDAY PT'S WOUND CARE IS EVERY THREE DAYS. CM FAXED REFERRAL AND DISCHARGE INFORMATION FAXED TO [employer] AT, . PT NOTIFIED AND DENIES FURHTER NEEDS. DRESS FINISHER NURSE NOTIFIED. Yazan Oconnell, CASE MANAGEMENT DCP- Discharge Planning Updated by [id number]: Yazan Oconnell on 06/08/18 4:[address] Patient Name: YAZAN ANAYA Admission Status: ER Accout number: [id number] Admission Date: 06-05-2018 : 1955 Admission Diagnosis:SHORTNESS OF BREATH Attending: MELECIO PANCHAL Current LOS: 3 Anticipated DC Date: 06-08-2018 Planned Disposition: Home Primary Insurance: MEDICAID [place] Discharge Planning Comments: CM MET WITH PT IN ROOM TO DISCUSS DISCHARGE PLANNING AND NEEDS. PT REPORTS LIVING AT HOME ALONE. PT REPORTS HAVING CAREGIVERS FROM ALL AGES HOME CARE FOR BATHING ASSISTANCE ON MONDAY, MONDAY, MONDAY, AND MONDAY, 8AM TO 3PM.. PT REPORTS HAVING CPAP, GLUCOMETER, NEBULIZER, HOME AND PORTABLE OXYGEN, WALKER AND WHEELCHAIR FROM [facility] PATIENT. CM DISCUSSED AVAILABILITY OF HOME HEALTH, REHAB SERVICES AND MEDICAL EQUIPMENT. PT DENIES DISCHARGE NEEDS, STATES HE HAS AIDE SERVICE AND NEEDS NOTHING FURTHER. PT REPORTS HIS COUSIN WILL PICK HIM UP FOR DISCHARGE HOME. PT PLANS TO DISCHARGE HOME ALONE, HAS AIDE SERVICES OF APPROXIMATELY 24 HOURS WEEKLY FROM ALL AGES HOME CARE. PT DENIES DISCHARGE NEEDS, STATES HIS COUSIN WILL PICK HIM UP FOR DISCHARGE HOME. Stave Cutter: Yazan Oconnell DCPIA - Discharge Planning Initial Assessment Updated by [id number]: Yazan Oconnell on 06/08/18 5:03 pm * Is the patient Alert and Oriented? Yes * How many steps to enter\exit or inside your home? NONE * PCP DR. MCINTYRE * Pharmacy [facility] IN [place] * Preadmission Environment Home Alone * ADLs Partial Dependent * Partial ADLs (Assistance needed) Ambulation Bathing * Equipment CPAP Glucometer Nebulizer Oxygen Walker Wheelchair * Other Equipment HOME AND PORTABLE OXYGEN [facility] PATIENT - MEDICAL EQUIPMENT PROVIDER * List name and contact numbers for known caregivers / representatives who currently or will assist patient after discharge: GELA HENDERSON, * Verbal permission to speak to the caregivers and representatives has been obtained from the patient. N/A * Community resources currently utilized Private Duty Care * Please name any agencies selected above. [facility], M,T,W,F 8AM TO 3PM * Additional services required to return to the preadmission environment? No * Can the patient safely return to the preadmission environment? Yes * Has this patient been hospitalized within the prior 30 days at any hospital? No External Providers [facility] Next Contact Date: 06/12/2018 Service Request Date: Service Type: Resolution: Reviewer: Comments: Last DP export: 06/08/18 4:05 p Patient Name: YAZAN ANAYA Page [phone] at 1321 All edits/amendments must be made on the electronic document DICTATION DATE: 06/12/18 1320 PRESTO LOG OPERATOR: JUSTIN 06/12/18 1320 RPT#: [id number] DC DATE: STATUS: ADM IN [facility] [address] [place] [address] END OF REPORT
--- NOTE | 2018-06-12 14:03 | NUR ---
IV CATH REMOVED WITH CATH TIP INTACT. VERBAL AND WRITTEN DISCHARGE INSTRUCTIONS GIVEN TO PATIENT. PATIENT HAS HIS PORTABLE OXYGEN. AWAITING FOR HIM TO GET DRESSES SO HE CAN BE DISCHARGED PER WHEELAR.
== END 2018-06-12 14:14 | disposition home health service (06) | DRG 291 ==
LOC: D.ER 13:17 → D.EDHOLD 18:20 → D.M2 18:20
PROVIDERS: Family Medicine; Internal Medicine Nephrology; ADMIT Family Medicine
DX: I11.0 Hypertensive heart disease with heart failure (principal); J96.20 Acute and chronic respiratory failure, unspecified whether with hypoxia or hypercapnia; J18.9 Pneumonia, unspecified organism; F17.213 Nicotine dependence, cigarettes, with withdrawal; J44.1 Chronic obstructive pulmonary disease with (acute) exacerbation; J44.0 Chronic obstructive pulmonary disease with (acute) lower respiratory infection; I50.33 Acute on chronic diastolic (congestive) heart failure; E11.621 Type 2 diabetes mellitus with foot ulcer; L97.529 Non-pressure chronic ulcer of other part of left foot with unspecified severity; L97.519 Non-pressure chronic ulcer of other part of right foot with unspecified severity; E11.51 Type 2 diabetes mellitus with diabetic peripheral angiopathy without gangrene; I25.10 Atherosclerotic heart disease of native coronary artery without angina pectoris; G47.33 Obstructive sleep apnea (adult) (pediatric); E11.65 Type 2 diabetes mellitus with hyperglycemia

== ENCOUNTER 2018-06-15 18:01 | Inpatient (IN) | payer MEDICAID ==
[~2018-06-15] VITALS: Ht 188 cm; Wt 128.7 kg
[2018-06-15 19:02] LABS: BASOPHILS 0.1 % (0-2); EOSINOPHILS 0.4 % (0-7); HEMATOCRIT 45.2 % (42.0-54.0); HEMOGLOBIN 14.7 g/dL (13.5-17.5); IMMATURE GRANULOCYTES 0.5 % (0-5); LYMPHOCYTES 10.5 % (15-50); MCH 28.1 pg (26.0-34.0); MCHC 32.5 g/dL (31.0-37.0); MCV 86.4 fL (80.0-100.0); MEAN PLATELET VOLUME 11.7 fL (7.4-10.4); MONOCYTES 8.3 % (2-11); NEUTROPHILS 80.2 % (40-80); PLATELET COUNT 178 10x3/uL (130-400); RBC 5.23 10x6/uL (4.20-6.10); RDW 16.2 % (11.5-14.5); WBC 13.7 10x3/uL (4.8-10.8)
[2018-06-15 19:21] LABS: APTT 31.5 SECONDS (22.8-39.4); INR 1.17 (0.85-1.17); PROTIME 14.3 SECONDS (11.6-15.0)
[2018-06-15 19:22] LABS: ALBUMIN 3.3 g/dL (3.4-5.0); ALKALINE PHOSPHATASE 97 U/L (46-116); ALT (SGPT) 28 U/L (10-68); BILIRUBIN - TOTAL 1.13 mg/dL (0.2-1.3); CALC OSMOLALITY 279 mosm/kg (275-300); CALCIUM 8.4 mg/dL (8.5-10.1); CARBON DIOXIDE 33.3 mmol/L (21.0-32.0); CHLORIDE - SERUM 100 mmol/L (98-107); CREATININE - SERUM 1.1 mg/dL (0.6-1.3); GLUCOSE 86 mg/dL (74-106); POTASSIUM - SERUM 3.8 mmol/L (3.5-5.1); PROTEIN - SERUM 6.9 g/dL (6.4-8.2); SODIUM 139 mmol/L (136-145); UREA NITROGEN 20 mg/dL (7-18); eGFR NON AFRICAN AMERICAN 72 mL/min (90-120)
[2018-06-15 19:34] LABS: CKMB 0.7 U/L (0.0-3.6); CREATINE KINASE 62 UL (21-232); PRO BNP 9952 pg/mL (0-125); TROPONIN-I 0.017 ng/mL (0.000-0.060)
[2018-06-15 20:00] VITALS: BP 94/49
[2018-06-15 21:44] VITALS: BP 106/49
--- NOTE | 2018-06-15 22:30 | NUR ---
PT TO FLOOR VIA BED. PT A/O X 4. UP WITH ASSITANCE. NON PRODUCTIVE COUGH NOTED AT THIS TIME. 6L [address]. [address]ARA IN [address] WITH YELLOW URINE. PT TRANSFERED TO NEW BED WITH MINIMAL ASSITANCE. DIABETIC ULCERS NOTED TO LYNDSEY FEET WRAPPED WITH KERLEX, DRSG C/D/I. ABD LARGE. IV TO R AC WITH BUMEX @ 5 CC/HR. PT DENIES PAIN AT THIS TIME. WILL NOTIFY MD OF PT ARRIVAL. NO FURTHER CONCERNS AT THIS TIME. BED LOWRED AND LOCKED. CL IN REACH. WILL CPOC.
[2018-06-15 23:03] LABS: APPEARANCE HAZY (CLEAR); BACTERIA NONE SEEN /hpf (NONE SEEN); BILIRUBIN NEGATIVE (NEGATIVE); COLOR YELLOW (YELLOW); EPITHELIAL CELLS NSEEN /hpf (0-5); GLUCOSE NEGATIVE (NEGATIVE); KETONE NEGATIVE (NEGATIVE); NITRITE NEGATIVE (NEGATIVE); PROTEIN TRACE mg/dL (NEGATIVE); SPECIFIC GRAVITY 1.015 (1.005-1.020); UROBILINOGEN NORMAL (NORMAL); WHITE CELLS - URINE NSEEN /hpf (0-5)
[2018-06-16 00:54] LABS: APPEARANCE CLEAR (CLEAR); BILIRUBIN NEGATIVE (NEGATIVE); COLOR YELLOW (YELLOW); GLUCOSE NEGATIVE (NEGATIVE); KETONE NEGATIVE (NEGATIVE); NITRITE NEGATIVE (NEGATIVE); PROTEIN NEGATIVE (NEGATIVE); SPECIFIC GRAVITY 1.015 (1.005-1.020); UROBILINOGEN NORMAL (NORMAL)
[2018-06-16 04:00] VITALS: BP 102/50
--- NOTE | 2018-06-16 05:46 | NUR ---
RESTING IN BED WITH EYES CLOSED. NO S/S OF DISTRESS OBSERVED, WILL CONT. POC.
--- NOTE | 2018-06-16 07:00 | NUR ---
RECEIVED REPORT. ASSUMED CARE OF PATIENT. CALL LIGHT WITHIN REACH. HR 87, SR ON TELEMETRY. NO DISTRESS. DENIES NEEDS AT THIS TIME. IV BUMEX INFUSING ORDERED.
[2018-06-16 07:39] VITALS: BP 102/50; BMI 36.5
[2018-06-16 08:46] VITALS: BP 90/47
[2018-06-16] MEDS ORDERED: GABAPENTIN100 MG PO (10:53)
--- NOTE | 2018-06-16 11:18 | NUR ---
FSBS 79. MARBIN CAMPOS PROVIDED.
[2018-06-16 12:11] VITALS: BMI 36.4
--- NOTE | 2018-06-16 13:56 | NUR ---
I CALLED [facility] TO GET SOME MORE BUMEX TO INFUSE. I TOLD HIM WHAT IS LEFT IS IN THE FILL CHAMBER.
[2018-06-16 16:25] VITALS: BP 101/48
--- NOTE | 2018-06-16 16:34 | NUR ---
FSBS 115. NO INSULIN REQUIRED PER SLIDING SCALE.
--- NOTE | 2018-06-16 17:47 | NUR ---
CONSUMED PM MEAL. CALL LIGHT WITHIN REACH. DENIES NEEDS AT THIS TIME. NO DISTRESS.
[2018-06-16 19:50] VITALS: BP 94/50
--- NOTE | 2018-06-16 20:00 | NUR ---
INITIAL ROUNDS AND ASSESSMENT COMPLETED. PT RESTING IN BED WITH NO DISTRESS. VERGARA PATENT TO BEDSIDE DRAIN BAG. BUMEX DRIP AT 5ML/HR INFUSING TO RIGHT A/C. DENIES PAIN OR DISCOMFORT. DOZING OFF AND ON. MONITOR AND CPOC.
--- NOTE | 2018-06-16 21:04 | NUR ---
NOTIFIED GLAZING MACHINE OPERATOR OF NEW MED ORDERS THAT NEEDED TO BE OBTAINED.
[2018-06-16 23:35] VITALS: BP 90/38
[2018-06-17 03:55] VITALS: BP 103/58
[2018-06-17 05:37] LABS: BASOPHILS 0.1 % (0-2); EOSINOPHILS 0 % (0-7); HEMATOCRIT 45.9 % (42.0-54.0); HEMOGLOBIN 14.7 g/dL (13.5-17.5); IMMATURE GRANULOCYTES 0.6 % (0-5); LYMPHOCYTES 3.6 % (15-50); MCH 27.8 pg (26.0-34.0); MCV 86.9 fL (80.0-100.0); MEAN PLATELET VOLUME 12.2 fL (7.4-10.4); MONOCYTES 2.5 % (2-11); NEUTROPHILS 93.2 % (40-80); PLATELET COUNT 161 10x3/uL (130-400); RBC 5.28 10x6/uL (4.20-6.10); RDW 16.1 % (11.5-14.5); WBC 10.6 10x3/uL (4.8-10.8)
--- NOTE | 2018-06-17 06:00 | NUR ---
PT HAS RESTED THROUGH THE NIGHT. VERGARA PATENT TO BEDSIDE DRAIN BAG. BUMEX DRIP AT 5ML/HR INFUSING TO RIGHT A/C. NO DISTRESS. O2 PER HFC AT 7L. MONITOR AND CPOC.
[2018-06-17 06:11] LABS: CALC OSMOLALITY 282 mosm/kg (275-300); CARBON DIOXIDE 34.6 mmol/L (21.0-32.0); CHLORIDE - SERUM 96 mmol/L (98-107); POTASSIUM - SERUM 3.9 mmol/L (3.5-5.1); SODIUM 138 mmol/L (136-145); UREA NITROGEN 22 mg/dL (7-18); eGFR NON AFRICAN AMERICAN 80 mL/min (90-120)
[2018-06-17 06:13] LABS: GLUCOSE 170 mg/dL (74-106)
[2018-06-17 09:27] VITALS: BP 104/53
--- NOTE | 2018-06-17 10:23 | NUR ---
DRSG CHANGED TO ULCER LEFT FOOT. COMPRESSION STOCKINGS REMOVED TO EXAMINE SKIN AND REAPLYED PER PT REQUEST. WILL CONT. PLAN OF CARE.
[2018-06-17 12:05] VITALS: BP 93/53
[2018-06-17 16:20] VITALS: BP 88/43
--- NOTE | 2018-06-17 19:53 | NUR ---
INITIAL ROUNDS AND ASSESSMENT. PT RESTING IN BED WTH NO DISTRESS. MONITOR AND CPOC. BUMEX DRIP AT 5ML/HR INFUSING. VERGARA PATENT TO BEDSIDE DRAIN BAG.
[2018-06-17 20:24] VITALS: BP 96/53
--- NOTE | 2018-06-17 22:33 | NUR ---
BEDTIME MEDS GIVEN. IV ABT UP AND INFUSING. FSBS 318, SLIDING SCALE INSULIN 12 UNITS ADMINISTERED. PT EATING BEDTIME SNACK AT THIS TIME. IV BUMEX INFUSING. CALL LIGHT IN REACH.
[2018-06-17 23:55] VITALS: BP 82/29
[2018-06-18 03:50] VITALS: BP 84/41
[2018-06-18 06:57] LABS: BASOPHILS 0.1 % (0-2); EOSINOPHILS 0 % (0-7); HEMATOCRIT 44.1 % (42.0-54.0); HEMOGLOBIN 14.4 g/dL (13.5-17.5); IMMATURE GRANULOCYTES 0.4 % (0-5); LYMPHOCYTES 3.8 % (15-50); MCHC 32.7 g/dL (31.0-37.0); MCV 85.6 fL (80.0-100.0); MEAN PLATELET VOLUME 12.4 fL (7.4-10.4); MONOCYTES 8.7 % (2-11); PLATELET COUNT 176 10x3/uL (130-400); RBC 5.15 10x6/uL (4.20-6.10); RDW 15.9 % (11.5-14.5); WBC 9.1 10x3/uL (4.8-10.8)
[2018-06-18 07:21] LABS: ANION GAP 13.5 mmol/L (8-16); CALCIUM 8.4 mg/dL (8.5-10.1); CARBON DIOXIDE 33.6 mmol/L (21.0-32.0); POTASSIUM - SERUM 4.1 mmol/L (3.5-5.1)
[2018-06-18 07:27] LABS: CREATININE - SERUM 1.6 mg/dL (0.6-1.3)
--- NOTE | 2018-06-18 07:50 | NUR ---
ASSESSMENT DONE. DENIES NEEDS.
--- NOTE | 2018-06-18 07:57 | NUR ---
RESTING QUIETLY RESP UNLABORED NAD NOTED MONITOR SHOWS SR RATE 77
--- NOTE | 2018-06-18 12:29 | MORECARE ---
CASE MANAGEMENT DISCHARGE SUMMARY PATIENT: YAZAN ANAYA UNIT: [id number] ADM DATE: 06/15/18 AGE: 62 : 53 SEX: M ROOM/BED: D.2120 AUTHOR: SB CHU PHYSICIAN: REFERRING PHYSICIAN: TIO GONZALES MD DATE OF SERVICE: 06/18/18 Discharge Plan Patient Name: YAZAN ANAYA [facility] [facility] 1955 Planned Disposition: Home with Home Health Anticipated Discharge Date: Discharge Date: Expected LOS: Initial Reviewer: [id number] Initial Review Date: 06/18/2018 Generated: 06/18/18 1:29 pm External Providers External Provider: [facility] Next Contact Date: 06/18/2018 Service Request Date: Service Type: Resolution: Reviewer: Comments: Coverage Notice Reviewer: [id number] Ezequiel Oconnell Notice Issued Date-Time: 06/18/2018 12:00 Notice Type: Patient Choice Letter Notice Delivered To: Patient Relationship to Patient: Stone Operator Name: Delivery Method: HAND - Hand Delivered Rosanne Days: Prior Verbal Notification: Recipient Understood Notice: Yes Recipient Signature: Yes Med Rec Note Co-signed by Attending: Coverage Notice Comment: [facility] Patient Name: YAZAN ANAYA Page [phone] at 1229 All edits/amendments must be made on the electronic document DICTATION DATE: 06/18/18 1229 PELLETIZER OPERATOR: JUSTIN 06/18/18 1229 RPT#: [id number] DC DATE: STATUS: ADM IN [facility] [address] [place] [address] END OF REPORT
--- NOTE | 2018-06-18 12:37 | MORECARE ---
CASE MANAGEMENT DISCHARGE SUMMARY PATIENT: YAZAN ANAYA UNIT: [id number] ADM DATE: 06/15/18 AGE: 62 : 53 SEX: M ROOM/BED: D.2120 AUTHOR: KIMBERLEY,DOC PHYSICIAN: REFERRING PHYSICIAN: TIO GONZALES MD DATE OF SERVICE: 06/18/18 Discharge Plan Patient Name: YAZAN ANAYA Facility: [facility]:[place] : 1955 Planned Disposition: Home with Home Health Anticipated Discharge Date: Discharge Date: Expected LOS: Initial Reviewer: [email or web address] Initial Review Date: 06/18/2018 Generated: 06/18/18 1:36 pm DCPIA - Discharge Planning Initial Assessment Updated by JI: Yazan Oconnell on 06/18/18 12:33 pm * Is the patient Alert and Oriented? Yes * How many steps to enter\exit or inside your home? NONE * PCP DR. MCINTYRE * Pharmacy [facility] IN [place] * Preadmission Environment Home Alone * ADLs Partial Dependent * Partial ADLs (Assistance needed) Ambulation Bathing * Equipment CPAP Glucometer Nebulizer Oxygen Walker Wheelchair * Other Equipment HOME AND PORTABLE OXYGEN - [facility] PATIENT, PROVIDER * List name and contact numbers for known caregivers / representatives who currently or will assist patient after discharge: GELA HENDERSON, * Verbal permission to speak to the caregivers and representatives has been obtained from the patient. N/A * Community resources currently utilized Home Health Private Duty Care * Please name any agencies selected above. [facility]- M,T,W,F 8AM TO 3PM * Additional services required to return to the preadmission environment? No * Can the patient safely return to the preadmission environment? Yes * Has this patient been hospitalized within the prior 30 days at any hospital? Yes Coverage Notice Reviewer: [id number] - Yazan Oconnell Notice Issued Date-Time: 06/18/2018 12:00 Notice Type: Patient Choice Letter Notice Delivered To: Patient Relationship to Patient: Title I Math Tutor Name: Delivery Method: HAND - Hand Delivered Rosanne Days: Prior Verbal Notification: Recipient Understood Notice: Yes Recipient Signature: Yes Med Rec Note Co-signed by Attending: Coverage Notice Comment: [facility] Last DP export: 06/18/18 11:29 am Patient Name: YAZAN ANAYA Page [phone] at 1237 All edits/amendments must be made on the electronic document DICTATION DATE: 06/18/18 1236 TYING MACHINE OPERATOR LUMBER: JUSTIN 06/18/18 1236 RPT#: [id number] DC DATE: STATUS: ADM IN [facility] [address] [place] [address] END OF REPORT
--- NOTE | 2018-06-18 12:53 | MORECARE ---
CASE MANAGEMENT DISCHARGE SUMMARY PATIENT: YAZAN ANAYA UNIT: [id number] ADM DATE: 06/15/18 AGE: 62 : 53 SEX: M ROOM/BED: D.2120 AUTHOR: KIMBERLEY,DOC PHYSICIAN: REFERRING PHYSICIAN: TIO GONZALES MD DATE OF SERVICE: 06/18/18 Discharge Plan Patient Name: YAZAN ANAYA Facility: [facility]:[place] : 1955 Planned Disposition: Home with Home Health Anticipated Discharge Date: Discharge Date: Expected LOS: Initial Reviewer: [email or web address] Initial Review Date: 06/18/2018 Generated: 06/18/18 1:53 pm Comments DCP- Discharge Planning Updated by [id number]: Yazan Oconnell on 06/18/18 11:[address] Patient Name: YAZAN ANAYA Admission Status: ER Accout number: [id number] Admission Date: 06-15-2018 : 1955 Admission Diagnosis: Attending: TIO GONZALES Current LOS: 3 Anticipated DC Date: Planned Disposition: Home with Home Health Primary Insurance: MEDICAID [place] PLANNED EXTERNAL PROVIDER: [facility] Discharge Planning Comments: CM MET WITH PT IN ROOM TO DISCUSS DISCHARGE PLANNING AND NEEDS. PT REPORTS LIVING AT HOME ALONE. PT HAS CAREGIVERS FROM ALL AGES HOME CARE FOR BATHING ASSISTANCE. PT HAS PERSONAL CARE M,T,W,F; 8AM TO 3PM. PT HAS CPAP, GLUCOMETER, NEBULIZER, HOME AND PORTABLE OXYGEN, WALKER AND WHEELCHAIR FROM [facility] PATIENT. PT HAS HOME HEALTH NOW WITH [facility], THEY DID COME OUT AND ADMIT PRIOR TO PT RETURNING TO HOSPITAL BECAUSE HE COULD NOT BREATHE AND FELT HE "WENT HOME TOO SOON LAST TIME." CM DISCUSSED AVAILABILITY OF HOME HEALTH, REHAB SERVICES AND MEDICAL EQUIPMENT. PT DENIES DISCHARGE NEEDS OTHER THAN RESUMPTION OF HOME HEALTH, CHOICE LETTER SIGNED. PT REPORTS HIS COUSIN WILL PICK HIM UP FOR DISCHARGE HOME. CM FAXED HOSPITAL UPDATE TO [facility] AT [phone]. FOR DISCHARGE, NOTIFY [facility], , FAX DISCHARGE INFORMATION TO [facility] AT [phone]. Household Worker: Yazan Oconnell DCPIA - Discharge Planning Initial Assessment Updated by [email or web address]: Yazan Oconnell on 06/18/18 12:33 pm * Is the patient Alert and Oriented? Yes * How many steps to enter\\exit or inside your home? NONE * PCP DR. MCINTYRE * Pharmacy [facility] IN [place] * Preadmission Environment Home Alone * ADLs Partial Dependent * Partial ADLs (Assistance needed) Ambulation Bathing * Equipment CPAP Glucometer Nebulizer Oxygen Walker Wheelchair * Other Equipment HOME AND PORTABLE OXYGEN - [facility] PATIENT, PROVIDER * List name and contact numbers for known caregivers / representatives who currently or will assist patient after discharge: GELA HENDERSON, * Verbal permission to speak to the caregivers and representatives has been obtained from the patient. N/A * Community resources currently utilized Home Health Private Duty Care * Please name any agencies selected above. [facility]- M,T,W,F 8AM TO 3PM * Additional services required to return to the preadmission environment? No * Can the patient safely return to the preadmission environment? Yes * Has this patient been hospitalized within the prior 30 days at any hospital? Yes Coverage Notice Reviewer: [id number] - Yazan Oconnell Notice Issued Date-Time: 06/18/2018 12:00 Notice Type: Patient Choice Letter Notice Delivered To: Patient Relationship to Patient: Scientific Artist Name: Delivery Method: HAND - Hand Delivered Rosanne Days: Prior Verbal Notification: Recipient Understood Notice: Yes Recipient Signature: Yes Med Rec Note Co-signed by Attending: Coverage Notice Comment: [facility] Last DP export: 06/18/18 11:36 am Patient Name: YAZAN ANAYA Page [phone] at 1253 All edits/amendments must be made on the electronic document DICTATION DATE: 06/18/18 1253 B2B SALES PROFESSIONAL: JUSTIN 06/18/18 1253 RPT#: [id number] DC DATE: STATUS: ADM IN [facility] [address] [place] [address] END OF REPORT
--- NOTE | 2018-06-18 17:02 | NUR ---
WITHOUT CHANGES OR DISTRESS NOTED AT THIS TIME.
[2018-06-18 20:00] VITALS: BP 102/53
--- NOTE | 2018-06-18 20:01 | NUR ---
INITIAL ROUNDS AND ASSESSMENT COMPLETED. PT RESTING IN BED WITH BUMEX DRIP INFUSING AT 5ML/HR TO RIGHT A/C. ALSO HAS NS @ KVO FOR ABT. SOB/O2 @ 7L PER HIGH FLOW N/C. SR PER TELEMETRY. DRESSINGS C/D/I TO BILATERAL LOWER LEGS. NO DRESSINGS ON FEET, WHERE HE HAS SOME AMPUTATED TOES AND SKILL ISSUES, BUT THERE IS NO DRAINAGE AT ALL AND EVERYTIME A DRESSING IS PLACED ON HIS FEET HE KICKS IT OFF. MONITOR AND CPOC.
--- NOTE | 2018-06-18 23:30 | NUR ---
PT'S IV TO RIGHT A/C IS PATENT , BUT CONTINUES TO MAKE IV PUMP ALARM. ABLE TO RESITE 22G TO RFA AND IV ABT INFUSING + BUMEX DRIP AT 5ML/HR. MONITOR AND CPOC.
[2018-06-19] VITALS: BP 99/52
--- NOTE | 2018-06-19 01:51 | NUR ---
PT RESTING WITH EYES CLOSED. RESP NONLABORED ON BIPAP WITH O2 @ 5L/NC.
[2018-06-19 06:39] LABS: BASOPHILS 0.2 % (0-2); EOSINOPHILS 0 % (0-7); HEMATOCRIT 44.9 % (42.0-54.0); HEMOGLOBIN 14.5 g/dL (13.5-17.5); IMMATURE GRANULOCYTES 0.4 % (0-5); LYMPHOCYTES 6.1 % (15-50); MCH 27.5 pg (26.0-34.0); MCHC 32.3 g/dL (31.0-37.0); MEAN PLATELET VOLUME 12.4 fL (7.4-10.4); MONOCYTES 5.8 % (2-11); NEUTROPHILS 87.5 % (40-80); PLATELET COUNT 164 10x3/uL (130-400); RBC 5.28 10x6/uL (4.20-6.10); RDW 15.8 % (11.5-14.5); WBC 11.1 10x3/uL (4.8-10.8)
[2018-06-19 06:58] LABS: ANION GAP 9.1 mmol/L (8-16); CALCIUM 8.5 mg/dL (8.5-10.1); CREATININE - SERUM 1.9 mg/dL (0.6-1.3); POTASSIUM - SERUM 4.1 mmol/L (3.5-5.1)
--- NOTE | 2018-06-19 07:30 | NUR ---
ASSESSMENT COMPLETED. ALERT AND ORIENTED. TELEMERTY SHOWS SR. LEFT WRIST IV WITH NS AT KVO AND BUMEX AT 5. VERGARA CATH TO GRAVITY. O2 AT 5 L/M. BOTH LOWER LEGS WITH DRSG DRY AND INTACT. DENIES ANY NEEDS. SR UP WITH CALL LIGHT IN REACH.
[2018-06-19 08:52] VITALS: BP 101/55
[2018-06-19 11:43] VITALS: BP 110/60
[2018-06-19 13:55] VITALS: Ht 188 cm; Wt 128.7 kg
[2018-06-19 16:08] VITALS: BP 115/67
--- NOTE | 2018-06-19 18:39 | NUR ---
DENIES ANY NEEDS. NO CHANGE THIDS 12 HOURS
--- NOTE | 2018-06-19 19:39 | NUR ---
PT CALLED ASKING FOR ICE WATER. TECH IN ROOM GETTING VITALS. NAME AND DATE PLACED ON BOARD. PT RECEIVED ICE WATER. 5L HIGH FLOW NC. PT HAS VERGARA WITH YELLOW URINE, PT WILL CALL FOR ASSIST WHEN NEEDED. NO S/S OF DISTRESS. BEDLOW AND CALL LIGHT IN REACH. WILL CPOC
[2018-06-19 20:00] VITALS: BP 91/57
--- NOTE | 2018-06-19 23:51 | NUR ---
RESP IN ROOM. PT OFF OF BIPAP. REPOSITIONED IN BED. PT DENIES ANY NEEDS. NO S/S OF DISTRESS. PT WILL CALL FOR ASSIST WHEN NEEDED. WILL CPOC
[2018-06-20] VITALS (8 sets, daily range): BP systolic 69–129; BP diastolic 33–64
--- NOTE | 2018-06-20 02:35 | NUR ---
PT IS RUNNING 81 NORMAL SINUS
--- NOTE | 2018-06-20 04:57 | NUR ---
PT REPOSITONED. O2 WAS NOT ON...TURNED ON 5L HIGH FLOW NC. PT DENIES ANY NEEDS. NO S/S OF DISTRESS. PT WILL CALL FOR ASSIST WHEN NEEDED. WILL CPOC
[2018-06-20 05:37] LABS: BASOPHILS 0.5 % (0-2); EOSINOPHILS 0 % (0-7); HEMATOCRIT 45.1 % (42.0-54.0); HEMOGLOBIN 14.5 g/dL (13.5-17.5); IMMATURE GRANULOCYTES 0.7 % (0-5); LYMPHOCYTES 8.9 % (15-50); MCH 27.5 pg (26.0-34.0); MCHC 32.2 g/dL (31.0-37.0); MCV 85.4 fL (80.0-100.0); MEAN PLATELET VOLUME 12.5 fL (7.4-10.4); MONOCYTES 6.1 % (2-11); NEUTROPHILS 83.8 % (40-80); PLATELET COUNT 156 10x3/uL (130-400); RBC 5.28 10x6/uL (4.20-6.10); RDW 15.9 % (11.5-14.5); WBC 13.1 10x3/uL (4.8-10.8)
[2018-06-20 05:53] LABS: ANION GAP 13.4 mmol/L (8-16); CALCIUM 8.7 mg/dL (8.5-10.1); CARBON DIOXIDE 34.6 mmol/L (21.0-32.0); CREATININE - SERUM 1.7 mg/dL (0.6-1.3)
--- NOTE | 2018-06-20 06:30 | NUR ---
PT FSBS IS 174, 8 UNITS GIVEN ORDERED. PT DENIES ANY NEEDS. BUMEX INFUSING AT 5 ORDERED. NS KVO. PT WILL CALL FOR ASSIST WHEN NEEDED. WILL CPOC
--- NOTE | 2018-06-20 09:46 | NUR ---
RESP UL ON FLOW. TELEMETRY SR. JAI INTACT. WILL CONT. PLAN OF CARE.
--- NOTE | 2018-06-20 13:59 | NUR ---
HR INCREASED TO 134-154 ST. B/P 102/64. BIANKA NEUMANN. WILL MONITOR.
--- NOTE | 2018-06-20 14:09 | NUR ---
TELEMETRY ST. HR 122.
--- NOTE | 2018-06-20 14:16 | NUR ---
HR CALLED TO BIANKA CALDERON. NO NEW ORDERS. TO CONT TO MONITOR. COMB MACHINE OPERATOR ALSO NOTFIED.
--- NOTE | 2018-06-20 18:14 | NUR ---
HR 176. BIANKA NOTIFIED. TO CONSULT CARDIOLOGY. WILL MONITOR.
--- NOTE | 2018-06-20 19:47 | NUR ---
RESUMED CARE OF PT, LYING IN BED RESPIRATIONS EVEN AND UNLABORED ON 5LPM VIA HIGH FLOW NC. LEFT FOREARM INFUSING NS @ KVO AND BUMEX @ 5. 98 SR ON TELEMETRY. VERGARA TO GRAVITY. CALL L;IGHT IN REACH. SEE NURSE ASSESSMENT. NO NEEDS AT THIS TIME.
[2018-06-21 04:00] VITALS: BP 96/56
--- NOTE | 2018-06-21 04:25 | NUR ---
TABLET TECHNICIAN AT BEDSIDE TO OBTAIN VITALS, CALL LIGHT IN REACH. WILL CONTINUE WITH PLAN OF CARE.
[2018-06-21 06:25] LABS: HEMATOCRIT 45.9 % (42.0-54.0); HEMOGLOBIN 15.2 g/dL (13.5-17.5); MCH 27.9 pg (26.0-34.0); MCHC 33.1 g/dL (31.0-37.0); MCV 84.2 fL (80.0-100.0); MEAN PLATELET VOLUME 12.2 fL (7.4-10.4); PLATELET COUNT 160 10x3/uL (130-400); RBC 5.45 10x6/uL (4.20-6.10)
[2018-06-21 06:28] LABS: WBC 19.3 10x3/uL (4.8-10.8)
[2018-06-21 06:45] LABS: CALCIUM 8.8 mg/dL (8.5-10.1); CARBON DIOXIDE 35.6 mmol/L (21.0-32.0); POTASSIUM - SERUM 4.6 mmol/L (3.5-5.1)
[2018-06-21 06:47] LABS: CREATININE - SERUM 2.3 mg/dL (0.6-1.3)
[2018-06-21 07:41] LABS: LYMPHOCYTES 23 % (15-50); MONOCYTES 1 % (2-11); NEUTROPHILS 76 % (40-80); PLATELET ESTIMATE NORMAL
[2018-06-21 09:33] VITALS: BP 96/55
--- NOTE | 2018-06-21 11:10 | NUR ---
SURGERY CANCELLED. DIET RESUMED.
[2018-06-21 12:18] VITALS: BP 98/48
--- NOTE | 2018-06-21 16:20 | NUR ---
URINE SPECIMEN COLLECTED AND TAKEN TO LAB. WILL MONITOR.
[2018-06-21 16:37] LABS: CREATININE - URINE 35.4 mg/dL (30-125)
[2018-06-21 16:42] LABS: COMPLEMENT C4 20.8 mg/dL (17.4-52.2)
[2018-06-21 16:43] LABS: CHOL - HDL RATIO 4.7 ratio (2.3-4.9); LDL-HDL RATIO 3.1 ratio (1.5-3.5); PHOSPHOROUS 5.1 mg/dL (2.5-4.9)
[2018-06-21 16:46] LABS: APPEARANCE CLEAR (CLEAR); BILIRUBIN NEGATIVE (NEGATIVE); COLOR YELLOW (YELLOW); GLUCOSE NEGATIVE (NEGATIVE); KETONE NEGATIVE (NEGATIVE); NITRITE NEGATIVE (NEGATIVE); PROTEIN TRACE mg/dL (NEGATIVE); RED CELLS - URINE 0-5 /hpf (0-5); SPECIFIC GRAVITY 1.015 (1.005-1.020); UROBILINOGEN NORMAL (NORMAL); WHITE CELLS - URINE 0-5 /hpf (0-5)
[2018-06-21 17:44] VITALS: BP 95/51
--- NOTE | 2018-06-21 17:50 | NUR ---
HR INCREASED TO 176. DR. KELLEY NEUMANN. TRISTA FALCON GIVE. WILL MONITOR.
--- NOTE | 2018-06-21 17:59 | NUR ---
TELEMETRY SR HR 87. WILL CONT. PLAN OF CARE.
--- NOTE | 2018-06-21 19:42 | NUR ---
RESUMED CARE OF PT, LYING IN BED RESPIRATIONS EVEN AND UNLABOREDON 5LPM VIA NC. VERGARA TO GRAVITY. 94 SR ON TELEMETRY. LEFT FOREARM SALINE LOCKED. SEE NURSE ASSESSMENT. REPOSITIONED IN BED.
[2018-06-21 20:00] VITALS: BP 90/40
[2018-06-22] VITALS (7 sets, daily range): BP systolic 62–126; BP diastolic 31–92
[2018-06-22 05:05] LABS: HEMATOCRIT 45.6 % (42.0-54.0); MCHC 32.9 g/dL (31.0-37.0); MCV 85.2 fL (80.0-100.0); MEAN PLATELET VOLUME 12.1 fL (7.4-10.4); PLATELET COUNT 139 10x3/uL (130-400); RBC 5.35 10x6/uL (4.20-6.10); WBC 25.7 10x3/uL (4.8-10.8)
[2018-06-22 05:40] LABS: EOSINOPHILS 1 % (0-7); LYMPHOCYTES 12 % (15-50); MONOCYTES 9 % (2-11); NEUTROPHILS 76 % (40-80); PLATELET ESTIMATE NORMAL
[2018-06-22 05:45] LABS: ALBUMIN 2.6 g/dL (3.4-5.0); ANION GAP 16.5 mmol/L (8-16); BILIRUBIN - TOTAL 0.9 mg/dL (0.2-1.3); CALCIUM 8.7 mg/dL (8.5-10.1); CARBON DIOXIDE 32.1 mmol/L (21.0-32.0); POTASSIUM - SERUM 4.6 mmol/L (3.5-5.1); PROTEIN - SERUM 6.6 g/dL (6.4-8.2); VANCOMYCIN - RANDOM 25.1 ug/mL (10.0-20.0)
[2018-06-22 05:46] LABS: CREATININE - SERUM 3.3 mg/dL (0.6-1.3)
--- NOTE | 2018-06-22 10:00 | NUR ---
TELEMETRY SR. UP AMBULATING WITH PT ASSIST. WILL CONT. PLAN OF CARE.
[2018-06-22 11:26] LABS: ANA REFLEX - DBL STRANDED DNA 14 IU/mL (0-9)
--- NOTE | 2018-06-22 12:22 | EC ---
PATIENT:YAZAN ANAYA DATE OF SERVICE: 06/15/18 SEX: M MEDICAL RECORD: [id number] DATE OF : [birth year] LOCATION:D.M2 D.212 AGE OF PATIENT: 62 ADMISSION DATE: 06/15/18 REFERRING PHYSICIAN: INTERPRETING PHYSICIAN: TOAN BROWNE MD ECHOCARDIOGRAM REPORT ECHO CHARGES 4 ECHO COMPLETE Date: 06/16/18 CLINICAL DIAGNOSIS: CHF ECHOCARDIOGRAPHIC MEASUREMENTS (adult normal given) AC root (d.<3.7cm) 4.2 cm LV Septum d (<1.2 cm> 1.6 cm Valve Excursion 2.3 cm LV Septum (systole) 2.4 cm Left Atria (s.<4.0cm> 3.5 cm LVPW d(<1.2cm) 1.5 cm RV (d.<2.3cm) 3.2 cm LVPW (sytole) 2.3 cm LV diastole(<5.6CM) 4.7 cm MV E-F(>70mm/sec) cm LV systole 2.6 cm LVOT Diameter 2.1 cm MV exc.(>10mm) cm Est.ejection fraction (50-75%) % DOPPLER: LVIT cm/sec A 108 cm/sec E 59.0 cm/sec LA cm/sec RVSP 58.0 mmHg LVOT 100 cm/sec AOP1/2T m/s Asc. Ao 126 cm/sec RVOT 77.0 cm/sec RA cm/sec PA 104 cm/sec AV Gradient Peak 6.3 mmHg AV Mean 3.4 mmHg AV Area 3.4 cm MV Gradient Peak 4.0 mmHg MV Mean 1.4 mmHg MV Area cm COMMENTS: Agile Java Developer: 1 JOHANNE STERNOE Film Examiner: 3 Dr. Bazzi TAPE# PACS Pericardial Effusion N DATE OF SERVICE: Adequate 2-D, color flow and spectral Doppler, and M-Mode. LVH is present. LV internal dimension is normal. 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 Estimated EF is 30% to 35%. Aortic valve is sclerotic. No evidence of stenosis by Doppler interrogation. Left atrium is normal. Mitral valve shows no prolapse. Mild MR. Right-sided pressure is grossly normal. Mild TR. Estimated systolic pressure greater than or equal to 58 mmHg via the continuity equation. ECHOCARDIOGRAM REPORT [id number] YAZAN ANAYA TRANSINT:[id number] Voice Confirmation ID: [id number] DOCUMENT ID: [id number] TOAN BROWNE MD at 1222 CC: [id number] DICTATION DATE: 06/17/18 0959 SENIOR ANALYST: 06/17/[address] [facility] [address] [place] [address]
--- NOTE | 2018-06-22 12:25 | NUR ---
Nutrition Follow Up: Chart reviewed Diet: ADA PO Intake: 97% meal avg BM: 06/22/18 Labs and meds reviewed Rec continue current diet. RD following.
--- NOTE | 2018-06-22 12:50 | NUR ---
AIDE KWON CULTURED AND SENT SPECIMEN TO LAB. WILL MONITOR.
[2018-06-22 13:20] LABS: ANA REFLEX - ANTICHROMATIN ABS <0.2 AI (0.0-0.9); ANA REFLEX - CENTROMERE B ABS <0.2 AI (0.0-0.9); ANA REFLEX - DIRECT Positive (Negative); ANA REFLEX - JO-1 AB <0.2 AI (0.0-0.9); ANA REFLEX - RNP ANTIBODIES 0.3 AI (0.0-0.9); ANA REFLEX - SCL-70 <0.2 AI (0.0-0.9); ANA REFLEX - SJOGRENS AB SSA <0.2 AI (0.0-0.9); ANA REFLEX - SJOGRENS AB SSB <0.2 AI (0.0-0.9); ANA REFLEX - SMITH AB <0.2 AI (0.0-0.9)
[2018-06-22 14:19] LABS: SPE - ALBUMIN 3.4 g/dL (2.9-4.4); SPE - ALPHA-1 GLOBULIN 0.2 g/dL (0.0-0.4); SPE - ALPHA-2 GLOBULIN 0.8 g/dL (0.4-1.0); SPE - BETA GLOBULIN 1.1 g/dL (0.7-1.3); SPE - GAMMA GLOBULIN 1.4 g/dL (0.4-1.8); SPE - M-SPIKE Not Observed g/dL (Not Observed); SPE - TOTAL PROTEIN 6.8 g/dL (6.0-8.5)
[2018-06-22 14:19] LABS: UPE RAND - ALBUMIN 41.7 % (()); UPE RAND - ALPHA 1 GLOBULIN 4.3 % (()); UPE RAND - ALPHA 2 GLOBULIN 11.9 % (()); UPE RAND - BETA GLOBULIN 18.6 % (()); UPE RAND - GAMMA GLOBULIN 23.5 % (())
--- NOTE | 2018-06-22 15:24 | NUR ---
VERGARA CARE DONE BY BALANCE WHEEL MOTION INSPECTOR.
--- NOTE | 2018-06-22 22:16 | NUR ---
INITIAL ROUNDS COMPLETED AT 1909 HRS. PT RESTING WITH EYES CLOSED. RESP EVEN AND REAGULAR. ASSESSMENT COMPLETED AT 1939 HRS. SR PER CM HR 66. IV TO LFA WITH NS AT 50CC/HR. IV PATENT. ALERT AND ORIENTED TO PERSON, PLACE AND TIME. LUNGS DIMINISHED IN BASES BILAT. SCATTERED INSP AND EXP WHEEZES NOTED TO BILAT UPPER LOBES. ABD SOFT WITH ACTIVE BS IN ALL 4 QUDRANTS. DRESSING TO L MONS PUBIS AREA CLEAN, DRY AND INTACT. DRESSING TO R FOOT CLEAN, DRY AND INTACT. PT INCONTINENT OF DIARRHEA. INCONTINENT CARE DONE. BP PER EDUCATION ADMINISTRATOR . RECHECKED MANUALLY TO R ARM AT 2044 WITH RESULTS 90/50. FSBS 53. 2 APPLE JUICES WITH 2 PACKETS OF SUGAR GIVEN WELL 2 CHOCOLATE PUDDINGS. RCHECKED FSBS WHEN GIVING PM MEDS WITH 96 RESULTED. PT CURRENTLY TALKING ON THE PHONE. WILL CONTINUE TO MONITOR. SR UP X2, CALL LIGHT WITHIN REACH.
[2018-06-23] VITALS (7 sets, daily range): BP systolic 87–117; BP diastolic 40–84
--- NOTE | 2018-06-23 00:04 | NUR ---
PT RESTING WITH EYES CLOSED. RESP EVEN AND REGULAR. SR UP X2, CALL LIGHT WITHIN REACH.
--- NOTE | 2018-06-23 02:23 | NUR ---
PT RESTING WITH EYES CLOSED. RESP EVEN AND REGULAR. SR UP X2, CALL LIGHT WITHIN REACH.
--- NOTE | 2018-06-23 04:11 | NUR ---
PT RESTING WITH EYES CLOSED. RESP EVEN AND REGULAR. BIPAP IN USE. SR UP X2, CALL LIGHT WITHIN REACH.
[2018-06-23 05:38] LABS: BASOPHILS 0.1 % (0-2); EOSINOPHILS 0 % (0-7); HEMATOCRIT 43.4 % (42.0-54.0); HEMOGLOBIN 14.2 g/dL (13.5-17.5); IMMATURE GRANULOCYTES 2.7 % (0-5); LYMPHOCYTES 15.2 % (15-50); MCH 27.7 pg (26.0-34.0); MCHC 32.7 g/dL (31.0-37.0); MCV 84.6 fL (80.0-100.0); MEAN PLATELET VOLUME 12.3 fL (7.4-10.4); MONOCYTES 6.8 % (2-11); NEUTROPHILS 75.2 % (40-80); PLATELET COUNT 138 10x3/uL (130-400); RBC 5.13 10x6/uL (4.20-6.10); RDW 15.9 % (11.5-14.5); WBC 21.5 10x3/uL (4.8-10.8)
[2018-06-23 05:39] LABS: ALBUMIN 2.3 g/dL (3.4-5.0); ANION GAP 13.2 mmol/L (8-16); BILIRUBIN - TOTAL 0.97 mg/dL (0.2-1.3); CALCIUM 8.5 mg/dL (8.5-10.1); CARBON DIOXIDE 30.7 mmol/L (21.0-32.0); CREATININE - SERUM 2.8 mg/dL (0.6-1.3); MAGNESIUM - SERUM 2.1 mg/dL (1.8-2.4); POTASSIUM - SERUM 4.9 mmol/L (3.5-5.1); PROTEIN - SERUM 6.2 g/dL (6.4-8.2); VANCOMYCIN - RANDOM 20.1 ug/mL (10.0-20.0)
--- NOTE | 2018-06-23 06:24 | NUR ---
VSS THROUGHOTU NIGHT. WITH SBP IN LOW 90'S. SR PER CM. PT DENIED ANY DISCOMFORT. PT INCONTINENT OF STOOL X2. AM FSBS 97. NO COVERAGE NEEDED. NEEDS MET; WILL CONTINUE TO MONITOR.
--- NOTE | 2018-06-23 12:32 | NUR ---
FSBS 126
--- NOTE | 2018-06-23 17:03 | NUR ---
FSBS 240 REGULAR INSULIN 20 UNITS GIVEN SQ ABDOMEN
--- NOTE | 2018-06-23 23:21 | NUR ---
INITIAL ROUNDS COMPLETED AT 1910 HRS. PT DENIED ANY DISCOMFORT. ASSESSMENT COMPELTED AT 1930 HRS. VSS. SR PER CM HR 64. IV TO LFA SL. O2 5L HIGH FLOW O2. LUINGS DIMINISHED IN BASES BILAT. DRESSING ABOVE L SIDE OF PENIS BROWN AND DRY. VERGARA DRAINING TEA COLORED URINE. DRESSING TO L FOOT OFF. ULCER NOTED OT OUTER ASPECT OF FOOT BY BIG TOE APPROX 3CM INDIAMETER. L FOOT MISSING BIG TOE AND LAST 2 TOES OF L FOOT. HEALING SORES TO OUTE ASPECT OF R FOOT BY BIG TOE APPROX 2CM IN DIAMETER. SCABS NOTED TO L CALF. VERGARA CARE DONE USING PROVON SURESTEP VERGARA CARE WIPES. PT TOLERATED ACTIVITY WELL. PM FSBS 109. NO COVERAGE NEEDED. PM MEDS GIVEN. DRESSING TO L FOOT DONE WITH BETADINE WET TO DRY AND WRAPPED IN NATHANAEL PER RESEARCH SUPPORT SPECIALIST'S ORDERS. DRESSING TO WOUND ABOVE PENIS DONE. NO DRAINAGE NOTED. OPENING APPROX 0.25 CM. AREA COVERED BY STERILE 4X4'S. PT CURRENTLY RESTING WITH EYES CLOSED. RESP EVN AND REGULAR. SR UP X2, CALL LIGHT WITHIN REACH.
--- NOTE | 2018-06-24 00:14 | NUR ---
PT RESTING WITH EYES CLOSED. RESP EVEN AND REGULAR. SR UP X2, CALL LIGHT WITHIN REACH.
--- NOTE | 2018-06-24 02:42 | NUR ---
PT RESTING WITH EYES CLOSED. RESP EVEN AND REGULAR. SR UP X2, CALL LIGHT WITHIN REACH.
[2018-06-24 03:53] VITALS: BP 110/50
--- NOTE | 2018-06-24 04:50 | NUR ---
PT AWAKE; DENIES ANY DISCOMFORT. IV CHANGED TO SL PER PT'S INSISTANCE. WILL CONTINUE TO MONITOR.
[2018-06-24 05:21] LABS: BASOPHILS 0.1 % (0-2); EOSINOPHILS 1.7 % (0-7); HEMATOCRIT 42.3 % (42.0-54.0); IMMATURE GRANULOCYTES 4.5 % (0-5); MCH 27.9 pg (26.0-34.0); MCHC 33.1 g/dL (31.0-37.0); MCV 84.4 fL (80.0-100.0); MEAN PLATELET VOLUME 12.1 fL (7.4-10.4); MONOCYTES 7.3 % (2-11); NEUTROPHILS 69.4 % (40-80); PLATELET COUNT 132 10x3/uL (130-400); RBC 5.01 10x6/uL (4.20-6.10); RDW 15.6 % (11.5-14.5)
[2018-06-24 05:29] LABS: WBC 15.1 10x3/uL (4.8-10.8)
[2018-06-24 05:38] LABS: ALBUMIN 2.3 g/dL (3.4-5.0); ANION GAP 11.6 mmol/L (8-16); BILIRUBIN - TOTAL 0.83 mg/dL (0.2-1.3); CALCIUM 8.5 mg/dL (8.5-10.1); CARBON DIOXIDE 29.7 mmol/L (21.0-32.0); CREATININE - SERUM 2.5 mg/dL (0.6-1.3); POTASSIUM - SERUM 4.3 mmol/L (3.5-5.1); PROTEIN - SERUM 6.2 g/dL (6.4-8.2)
--- NOTE | 2018-06-24 06:06 | NUR ---
VSS THROUGHOUT NIGHT. PT DENIED ANY DISCOMFORT. NEEDS MET;WILL CONTINUE TO MONITOR.
--- NOTE | 2018-06-24 07:41 | NUR ---
ASSESSMENT COMPLETED. TELEMERTY SHOWS SR. O2 AT 5 L/M PER HIGH FLOW METER. LEFT FA SL. VERGARA CATH PATENT TO GRAVITY BAG. LEFT FOOT ULCER NOTED. PT HAS A DRSG OVER ABCESS ON THE LEFT SIDE OF GROIN. NO NEEDS VOICED
[2018-06-24 08:20] VITALS: BP 95/60
--- NOTE | 2018-06-24 09:10 | NUR ---
SPOKE WITH DR TRIMBLE ABOUT CONSULT STATED HE WOULD SEE PT TOMORROW WHEN HE WAS BACK
[2018-06-24 14:41] LABS: ERYTHROCYTE SEDIMENTATION RATE 17 mm/hr (0-20)
[2018-06-24 15:34] VITALS: BP 90/58
--- NOTE | 2018-06-24 17:43 | NUR ---
HOB UP. DENIES ANY NEEDS. TELEMERTY SHOWS SR. NO NEEDS NOTED.
--- NOTE | 2018-06-24 18:18 | NUR ---
22 GAUGE IV PLACED TO LEFT FOREARM X 1 STICK. GOOD BLOOD RETURN, EASY FLUSH. TOLERATED IV PLACEMENT WELL. TAPED, DATED AND SECURED.NO DISTRESS.
[2018-06-24 18:29] LABS: CREATININE - URINE 43.6 mg/dL (30-125); PRO/CRE RATIO URINE 2.2 mg/g; PROTEIN - URINE 96.3 mg/dL (0.0-11.9)
[2018-06-24 18:48] LABS: APPEARANCE CLOUDY (CLEAR); BILIRUBIN NEGATIVE (NEGATIVE); GLUCOSE 250 mg/dL (NEGATIVE); KETONE NEGATIVE (NEGATIVE); NITRITE NEGATIVE (NEGATIVE); PROTEIN 1+ mg/dL (NEGATIVE); SPECIFIC GRAVITY 1.015 (1.005-1.020); UROBILINOGEN NORMAL (NORMAL)
[2018-06-24 18:50] LABS: BACTERIA FEW /hpf (NONE SEEN); RED CELLS - URINE >50 /hpf (0-5); WHITE CELLS - URINE OCC /hpf (0-5)
--- NOTE | 2018-06-24 19:17 | NUR ---
RECIEVED RESTING IN BED WITH EYES OPEN AND TV ON. ALERT AND ORIENTED X4. DSG TO LEFT FOOT. O2@ 5 LITERS PER HIGH FLOW NC. IV TO LEFT FA WITH NS @ 50 CC/HR. F/C INTACT WITH RED URINE WITH SMALL CLOTS IN LINE. DRESSING TO PUBIC SYNTHESIS CDI. TELEMETRY IN [facility].
[2018-06-24 21:15] VITALS: BP 85/40
[2018-06-25 01:40] VITALS: BP 92/55
[2018-06-25 04:45] LABS: BASOPHILS 0.2 % (0-2); EOSINOPHILS 2.2 % (0-7); HEMATOCRIT 40.4 % (42.0-54.0); HEMOGLOBIN 13.4 g/dL (13.5-17.5); IMMATURE GRANULOCYTES 4.1 % (0-5); LYMPHOCYTES 18.5 % (15-50); MCH 27.6 pg (26.0-34.0); MCHC 33.2 g/dL (31.0-37.0); MCV 83.1 fL (80.0-100.0); MONOCYTES 7.5 % (2-11); NEUTROPHILS 67.5 % (40-80); PLATELET COUNT 138 10x3/uL (130-400); RBC 4.86 10x6/uL (4.20-6.10); RDW 15.2 % (11.5-14.5); WBC 14.5 10x3/uL (4.8-10.8)
[2018-06-25 04:56] VITALS: BP 81/40
[2018-06-25 05:10] LABS: ALBUMIN 2.3 g/dL (3.4-5.0); ANION GAP 7.5 mmol/L (8-16); BILIRUBIN - TOTAL 0.66 mg/dL (0.2-1.3); CALCIUM 8.4 mg/dL (8.5-10.1); CARBON DIOXIDE 34.4 mmol/L (21.0-32.0); CREATININE - SERUM 1.5 mg/dL (0.6-1.3); MAGNESIUM - SERUM 1.9 mg/dL (1.8-2.4); POTASSIUM - SERUM 3.9 mmol/L (3.5-5.1); PROTEIN - SERUM 6.3 g/dL (6.4-8.2)
[2018-06-25 07:29] VITALS: BP 110/62
--- NOTE | 2018-06-25 11:00 | NUR ---
ALERT AND ORIENTED X4. UP OOB AMBULATING IN [place] WITH WALKER ASSISTED BY PHYSICAL THERAPY. SINUS RHYTHM 63 ON TELEMETRY. DENIES ANY NEEDS. CONTINUE PLAN OF CARE AND SAFETY PRECAUTIONS.
[2018-06-25 11:48] VITALS: BP 110/58
[2018-06-25 15:36] VITALS: BP 106/64
--- NOTE | 2018-06-25 17:38 | NUR ---
UA COLLECTED AND TAKEN TO LAB. NO CHANGE. CONTINUE PLAN OF CARE AND SAFETY PRECAUTIONS.
--- NOTE | 2018-06-25 19:16 | NUR ---
RECIEVED UP IN BED WITH LARGE BAG OF M&M'S EATING THEM. ATTEMPTS TO EDUCATE ON DIABETIC DIET UNSUCESSFUL. STATED " I KNOW". O2@ 5 LITERS PER N/C. IV TO LEFT FA SL.. TELEMETRY IN PLACE AND DRESSING TO LEFT FOOT. F/C PATENT WITH DARK YELLOW URINE DRAINING TO BEDSIDE DRAINAGE BAG. DENIES ANY PAIN OR NEEDS. WILL CONT. POC.
[2018-06-25 20:21] VITALS: BP 104/83
[2018-06-26 01:31] VITALS: BP 104/42
[2018-06-26 05:20] LABS: BASOPHILS 0.1 % (0-2); EOSINOPHILS 2.1 % (0-7); HEMATOCRIT 41.8 % (42.0-54.0); HEMOGLOBIN 13.8 g/dL (13.5-17.5); IMMATURE GRANULOCYTES 3.3 % (0-5); LYMPHOCYTES 21.2 % (15-50); MCV 84.8 fL (80.0-100.0); MEAN PLATELET VOLUME 12.2 fL (7.4-10.4); MONOCYTES 8.7 % (2-11); NEUTROPHILS 64.6 % (40-80); PLATELET COUNT 143 10x3/uL (130-400); RBC 4.93 10x6/uL (4.20-6.10); RDW 15.4 % (11.5-14.5); WBC 14.4 10x3/uL (4.8-10.8)
[2018-06-26 05:40] LABS: ALBUMIN 2.5 g/dL (3.4-5.0); ANION GAP 9.4 mmol/L (8-16); BILIRUBIN - TOTAL 0.72 mg/dL (0.2-1.3); CALCIUM 8.6 mg/dL (8.5-10.1); CARBON DIOXIDE 33.8 mmol/L (21.0-32.0); MAGNESIUM - SERUM 1.7 mg/dL (1.8-2.4); POTASSIUM - SERUM 4.2 mmol/L (3.5-5.1); PROTEIN - SERUM 6.8 g/dL (6.4-8.2)
[2018-06-26 05:43] LABS: CREATININE - SERUM 1.1 mg/dL (0.6-1.3)
[2018-06-26 06:19] VITALS: BP 125/53
--- NOTE | 2018-06-26 06:30 | NUR ---
FSBS 55 THIS AM. ASYMPTOMATIC. ORANGE JUICE AND SANDWICH BOX GIVEN. RECHECKED AND FSBS 127 AT THIS TIME.
[2018-06-26 07:27] VITALS: BP 103/61
[2018-06-26 12:11] VITALS: BP 118/74
--- NOTE | 2018-06-26 13:00 | NUR ---
ALERT AND ORIENTED X4. UP AMBULATING IN [place] ACCOMPANIED BY PHYSICAL THERAPY WITH WALKER. CONTINUE PLAN OF CARE AND SAFETY PRECAUTIONS.
[2018-06-26 14:52] VITALS: BP 111/67
[2018-06-26 21:14] VITALS: BP 91/62
--- NOTE | 2018-06-26 21:52 | NUR ---
FSBS 63 SANDWICH BOX GIVEN TO PT, WILL RECHEK
--- NOTE | 2018-06-26 22:23 | NUR ---
FSBS RECHECKED 176 AT THIS TIME. NO S/S GIVEN D/T EARLIER HYPOGLYCEMIC EPISODE.
[2018-06-27] VITALS: BP 92/47
[2018-06-27 05:20] VITALS: BP 122/75
[2018-06-27 06:41] LABS: BASOPHILS 0.2 % (0-2); EOSINOPHILS 2.1 % (0-7); HEMATOCRIT 41.6 % (42.0-54.0); HEMOGLOBIN 13.3 g/dL (13.5-17.5); IMMATURE GRANULOCYTES 2.5 % (0-5); LYMPHOCYTES 23.7 % (15-50); MCH 27.7 pg (26.0-34.0); MCV 86.5 fL (80.0-100.0); MEAN PLATELET VOLUME 11.5 fL (7.4-10.4); MONOCYTES 9.1 % (2-11); NEUTROPHILS 62.4 % (40-80); PLATELET COUNT 141 10x3/uL (130-400); RBC 4.81 10x6/uL (4.20-6.10); RDW 15.5 % (11.5-14.5); WBC 13.1 10x3/uL (4.8-10.8)
[2018-06-27 07:07] LABS: ALBUMIN 2.5 g/dL (3.4-5.0); ALKALINE PHOSPHATASE 69 U/L (46-116); ALT (SGPT) 17 U/L (10-68); BILIRUBIN - TOTAL 0.79 mg/dL (0.2-1.3); CALCIUM 8.9 mg/dL (8.5-10.1); CARBON DIOXIDE 35.3 mmol/L (21.0-32.0); CHLORIDE - SERUM 104 mmol/L (98-107); CREATININE - SERUM 0.9 mg/dL (0.6-1.3); MAGNESIUM - SERUM 1.5 mg/dL (1.8-2.4); POTASSIUM - SERUM 4.8 mmol/L (3.5-5.1); PROTEIN - SERUM 6.7 g/dL (6.4-8.2); SODIUM 141 mmol/L (136-145); eGFR NON AFRICAN AMERICAN > 90 mL/min (90-120)
[2018-06-27 07:10] LABS: CALC OSMOLALITY 285 mosm/kg (275-300); GLUCOSE 95 mg/dL (74-106); UREA NITROGEN 27 mg/dL (7-18)
--- NOTE | 2018-06-27 07:20 | NUR ---
ASSESSMENT DONE. DENIES NEEDS
[2018-06-27 07:48] VITALS: BP 129/71
--- NOTE | 2018-06-27 08:35 | NUR ---
RESTS IN BED WITH EYES CLOSED. RESP UL ON . JAI INTACT. CALL LIGHT IN REACH.
[2018-06-27 11:03] VITALS: BP 125/61
--- NOTE | 2018-06-27 13:56 | NUR ---
Nutrition follow-up: Diet: ADA consistent CHO PO Intake 92% average of last 9 meals Labs reviewed Wt: 283# +BM RDN following.
[2018-06-27 15:45] VITALS: BP 101/53
[2018-06-27 20:00] VITALS: BP 118/62
[2018-06-28 00:43] VITALS: BP 104/60
[2018-06-28 04:00] VITALS: BP 100/62
--- NOTE | 2018-06-28 07:20 | NUR ---
AWAKE AND ORIENTED. TELEMERTY SHOWS SR. LEFT FORE ARM SL. O2 AT 6 L/M PER CO. VERGARA CATH PATENT. . PT HAS SORES TO BOTH FEET. LEFT BIG TOE REMOVED. DENIES ANY NEEDS.
[2018-06-28 07:58] VITALS: BP 140/86
--- NOTE | 2018-06-28 09:22 | NUR ---
RESP UL ON FLOW. JAI INTACT. CALL LIGHT IN REACH. WILL CONT. PLAN OF CARE.
[2018-06-28 10:19] LABS: AEROBE ID Final report (())
[2018-06-28 11:33] VITALS: BP 94/59
[2018-06-28 15:14] VITALS: BP 110/58
--- NOTE | 2018-06-28 17:52 | NUR ---
PT EATING HIS DINNER AND TALKING WITH VISITORS. DENIES ANY NEEDS.. TELEMERTY SHOWS SR.
--- NOTE | 2018-06-28 18:54 | MORECARE ---
CASE MANAGEMENT DISCHARGE SUMMARY PATIENT: YAZAN ANAYA UNIT: [id number] ADM DATE: 06/15/18 AGE: 62 : 53 SEX: M ROOM/BED: D.2120 AUTHOR: KIMBERLEY,DOC PHYSICIAN: REFERRING PHYSICIAN: TIO GONZALES MD DATE OF SERVICE: 06/28/18 Discharge Plan Patient Name: YAZAN ANAYA Facility: [facility]:[place] : 1955 Planned Disposition: Nursing Facility LISA Cert Anticipated Discharge Date: 06/29/18 Discharge Date: Expected LOS: 14 Initial Reviewer: [email or web address] Initial Review Date: 06/18/2018 Generated: 06/28/18 7:53 pm Comments DCP- Discharge Planning Updated by [id number]: Yazan Oconnell on 06/18/18 11:[address] Patient Name: YAZAN ANAYA Admission Status: ER Accout number: [id number] Admission Date: 06-15-2018 : 1955 Admission Diagnosis: Attending: TIO GONZALES Current LOS: 3 Anticipated DC Date: Planned Disposition: Home with Home Health Primary Insurance: MEDICAID [place] PLANNED EXTERNAL PROVIDER: [facility] Discharge Planning Comments: CM MET WITH PT IN ROOM TO DISCUSS DISCHARGE PLANNING AND NEEDS. PT REPORTS LIVING AT HOME ALONE. PT HAS CAREGIVERS FROM ALL AGES HOME CARE FOR BATHING ASSISTANCE. PT HAS PERSONAL CARE M,T,W,F; 8AM TO 3PM. PT HAS CPAP, GLUCOMETER, NEBULIZER, HOME AND PORTABLE OXYGEN, WALKER AND WHEELCHAIR FROM [facility] PATIENT. PT HAS HOME HEALTH NOW WITH [facility], THEY DID COME OUT AND ADMIT PRIOR TO PT RETURNING TO HOSPITAL BECAUSE HE COULD NOT BREATHE AND FELT HE "WENT HOME TOO SOON LAST TIME." CM DISCUSSED AVAILABILITY OF HOME HEALTH, REHAB SERVICES AND MEDICAL EQUIPMENT. PT DENIES DISCHARGE NEEDS OTHER THAN RESUMPTION OF HOME HEALTH, CHOICE LETTER SIGNED. PT REPORTS HIS COUSIN WILL PICK HIM UP FOR DISCHARGE HOME. CM FAXED HOSPITAL UPDATE TO [facility] AT [phone]. FOR DISCHARGE, NOTIFY [facility], , FAX DISCHARGE INFORMATION TO [facility] AT [phone]. Computational Biologist: Yazan Oconnell DCPIA - Discharge Planning Initial Assessment Updated by [id number]: Yazan Oconnell on 06/18/18 12:33 pm * Is the patient Alert and Oriented? Yes * How many steps to enter\\exit or inside your home? NONE * PCP DR. MCINTYRE * Pharmacy [facility] IN [place] * Preadmission Environment Home Alone * ADLs Partial Dependent * Partial ADLs (Assistance needed) Ambulation Bathing * Equipment CPAP Glucometer Nebulizer Oxygen Walker Wheelchair * Other Equipment HOME AND PORTABLE OXYGEN - [facility] HOME PATIENT, PROVIDER * List name and contact numbers for known caregivers / representatives who currently or will assist patient after discharge: GELA HENDERSON, * Verbal permission to speak to the caregivers and representatives has been obtained from the patient. N/A * Community resources currently utilized Home Health Private Duty Care * Please name any agencies selected above. [facility]- M,T,W,F 8AM TO 3PM * Additional services required to return to the preadmission environment? No * Can the patient safely return to the preadmission environment? Yes * Has this patient been hospitalized within the prior 30 days at any hospital? Yes External Providers External Provider: [facility] Next Contact Date: 06/29/2018 Service Request Date: Service Type: Resolution: Reviewer: Comments: [facility] Next Contact Date: 06/29/2018 Service Request Date: Service Type: Resolution: Reviewer: Comments: Coverage Notice Reviewer: [id number] - Yazan Oconnell Notice Issued Date-Time: 06/18/2018 12:00 Notice Type: Patient Choice Letter Notice Delivered To: Patient Relationship to Patient: Generation Mechanic Helper Name: Delivery Method: HAND - Hand Delivered Rosanne Days: Prior Verbal Notification: Recipient Understood Notice: Yes Recipient Signature: Yes Med Rec Note Co-signed by Attending: Coverage Notice Comment: [facility] Last DP export: 06/18/18 11:53 am Patient Name: YAZAN ANAYA Page [id number] at 1854 All edits/amendments must be made on the electronic document DICTATION DATE: 06/28/181852 NATIONAL ACCOUNTS RECRUITER: JUSTIN 06/28/181852 RPT#: [id number] DC DATE: STATUS: ADM IN [facility] [address] [place] [address] END OF REPORT
--- NOTE | 2018-06-28 19:20 | MORECARE ---
CASE MANAGEMENT DISCHARGE SUMMARY PATIENT: YAZAN ANAYA UNIT: [id number] ADM DATE: 06/15/18 AGE: 62 : 53 SEX: M ROOM/BED: D.6310 AUTHOR: KIMBERLEY,DOC PHYSICIAN: REFERRING PHYSICIAN: TIO GONZALES MD DATE OF SERVICE: 06/28/18 Discharge Plan Patient Name: YAZAN ANAYA Facility: [facility]:[place] : 1955 Planned Disposition: Nursing Facility LISA Cert Anticipated Discharge Date: 06/29/18 Discharge Date: Expected LOS: 14 Initial Reviewer: [id number] Initial Review Date: 06/18/2018 Generated: 06/28/18 8:19 pm Comments DCP- Discharge Planning Updated by [id number]: Yazan Oconnell on 06/28/18 6:[address] Patient Name: YAZAN ANAYA Encounter No: [id number] : 1955 Primary Insurance: MEDICAID [place] Anticipated DC Date: 06-29-2018 Planned Disposition: Nursing Facility LISA Cert External Planned Provider: [facility] LONG [facility]M CARE MEDICAID BED DCP follow-up note: CM SPOKE TO BEDSIDE NURSE WHO INFORMED CM THAT PT CANNOT DISCHARGE HOME REPORTING HE CANNOT WALK. CM SPOKE TO PT IN ROOM REGARDING DISCHARGE NEEDS AND PLANNING. CM DISCUSSED LACK OF REHAB BENEFIT WITH MEDICAID OTHER THAN HOME HEALTH OR OUTPATIENT THERAPY. PT REPORTS HE IS NOT WALKING WELL ENOUGH TO GO HOME ALONE. PT REPORTS HAVING NO FAMILY OR FRIENDS TO ASSIST WITH HIS CARE AT HOME. PT REPORTS HE CANNOT AFFORD FURTHER PERSONAL CARE AT HOME. PT UNDERSTANDS THAT HE CAN GO TO LONG TERM FOR CONFIGURATION MANAGER CARE AND THAT THE LONG TERM WILL RECEIVE HIS CHECK AND THAT WILL GO TO FUNDING PT'S CARE. PT ALSO UNDERSTANDS HE HAS TO STAY 3O DAYS AT THE VERY LEAST AND WILL RECEIVE RESTORATIVE CARE, NOT THERAPY SERVICES. LISTING PROVIDED, PT SIGNED CHOICE FOR [facility], IN THAT ORDER. CM NOTIFIED BEDSIDE NURSE. CM NOTIFIED [facility]. CM CALLED [facility], , SPOKE TO LEONOR WHO WAS UNSURE IF THEY HAD ALF AVAILABILITY. CM FAXED REFERRAL TO [facility] AT [phone]. CM NOTIFIED [facility] OF ALF CARE REFERRAL FOR [facility] AT [phone]. CM FAXED REFERRAL TO [facility] AT [phone]. CM WAITING CONFIGURATION MANAGER CARE ADMISSION DETERMINATIONS FROM [facility]. Yazan Oconnell, CASE MANAGEMENT DCP- Discharge Planning Updated by [id number]: Yazan Oconnell on 06/18/18 11:[address] Patient Name: YAZAN ANAYA Admission Status: ER Accout number: [id number] Admission Date: 06-15-2018 : 1955 Admission Diagnosis: Attending: TIO GONZALES Current LOS: 3 Anticipated DC Date: Planned Disposition: Home with Home Health Primary Insurance: MEDICAID [place] PLANNED EXTERNAL PROVIDER: [facility] Discharge Planning Comments: CM MET WITH PT IN ROOM TO DISCUSS DISCHARGE PLANNING AND NEEDS. PT REPORTS LIVING AT HOME ALONE. PT HAS CAREGIVERS FROM ALL AGES HOME CARE FOR BATHING ASSISTANCE. PT HAS PERSONAL CARE M,T,W,F; 8AM TO 3PM. PT HAS CPAP, GLUCOMETER, NEBULIZER, HOME AND PORTABLE OXYGEN, WALKER AND WHEELCHAIR FROM [facility] PATIENT. PT HAS HOME HEALTH NOW WITH [facility], THEY DID COME OUT AND ADMIT PRIOR TO PT RETURNING TO HOSPITAL BECAUSE HE COULD NOT BREATHE AND FELT HE "WENT HOME TOO SOON LAST TIME." CM DISCUSSED AVAILABILITY OF HOME HEALTH, REHAB SERVICES AND MEDICAL EQUIPMENT. PT DENIES DISCHARGE NEEDS OTHER THAN RESUMPTION OF HOME HEALTH, CHOICE LETTER SIGNED. PT REPORTS HIS COUSIN WILL PICK HIM UP FOR DISCHARGE HOME. CM FAXED HOSPITAL UPDATE TO [facility] AT [phone]. FOR DISCHARGE, NOTIFY [facility], , FAX DISCHARGE INFORMATION TO [facility] AT [phone]. Nanotechnician: Yazan Oconnell DCPIA - Discharge Planning Initial Assessment Updated by [id number]: Yazan Oconnell on 06/18/18 12:33 pm * Is the patient Alert and Oriented? Yes * How many steps to enter\\exit or inside your home? NONE * PCP DR. MCINTYRE * Pharmacy [facility] IN [place] * Preadmission Environment Home Alone * ADLs Partial Dependent * Partial ADLs (Assistance needed) Ambulation Bathing * Equipment CPAP Glucometer Nebulizer Oxygen Walker Wheelchair * Other Equipment HOME AND PORTABLE OXYGEN - [facility] PATIENT, PROVIDER * List name and contact numbers for known caregivers / representatives who currently or will assist patient after discharge: GELA HENDERSON, * Verbal permission to speak to the caregivers and representatives has been obtained from the patient. N/A * Community resources currently utilized Home Health Private Duty Care * Please name any agencies selected above. [facility]- M,T,W,F 8AM TO 3PM * Additional services required to return to the preadmission environment? No * Can the patient safely return to the preadmission environment? Yes * Has this patient been hospitalized within the prior 30 days at any hospital? Yes Coverage Notice Reviewer: [id number] Ezequiel Oconnell Notice Issued Date-Time: 06/18/2018 12:00 Notice Type: Patient Choice Letter Notice Delivered To: Patient Relationship to Patient: Family Coach Name: Delivery Method: HAND - Hand Delivered Rosanne Days: Prior Verbal Notification: Recipient Understood Notice: Yes Recipient Signature: Yes Med Rec Note Co-signed by Attending: Coverage Notice Comment: [facility] Reviewer: [id number] Ezequiel Oconnell Notice Issued Date-Time: 06/28/2018 16:10 Notice Type: Patient Choice Letter Notice Delivered To: Patient Relationship to Patient: Family Coach Name: Delivery Method: HAND - Hand Delivered Rosanne Days: Prior Verbal Notification: Recipient Understood Notice: Yes Recipient Signature: Yes Med Rec Note Co-signed by Attending: Coverage Notice Comment[facility]: 06/28/18 5:53 p Patient Name: YAZAN ANAYA Page 34495 at 1920 All edits/amendments must be made on the electronic document DICTATION DATE: 06/28/181918 STOCK WETTER: JUSTNI 06/28/181918 RPT#: [id number] DC DATE: STATUS: ADM IN [facility] [address] [place] [address] END OF REPORT
--- NOTE | 2018-06-28 19:37 | NUR ---
RESUMING PATIENT CARE. PATIENT IS ALERT AND ORIENTED. RESPIRATIONS ARE EVEN AND UNLABORED. NO S/S OF DISTRESS. NO C/O PAIN. DENIES NEEDS AT THIS TIME. CALL LIGHT WITHIN REACH. PATIENT BOARD UPDATED. WILL CPOC.
[2018-06-28 20:00] VITALS: BP 113/73
[2018-06-29] VITALS: BP 112/70
[2018-06-29 04:00] VITALS: BP 115/87
[2018-06-29 08:00] VITALS: BP 103/55
--- NOTE | 2018-06-29 09:54 | MORECARE ---
CASE MANAGEMENT DISCHARGE SUMMARY PATIENT: YAZAN ANAYA UNIT: [id number] ADM DATE: 06/15/18 AGE: 62 : 54 SEX: M ROOM/BED: D.2320 AUTHOR: KIMBERLEY,DOC PHYSICIAN: REFERRING PHYSICIAN: TIO GONZALES MD DATE OF SERVICE: 06/29/18 Discharge Plan Patient Name: YAZAN ANAYA Facility: [facility]:[place] : 1955 Planned Disposition: Nursing Facility LISA Cert Anticipated Discharge Date: 06/29/18 Discharge Date: Expected LOS: 14 Initial Reviewer: [id number] Initial Review Date: 06/18/2018 Generated: 06/29/18 10:53 am Comments DCP- Discharge Planning Updated by [id number]: Yazan Oconnell on 06/28/18 6:[address] Patient Name: YAZAN ANAYA Encounter No: [id number] : 1955 Primary Insurance: MEDICAID [place] Anticipated DC Date: 06-29-2018 Planned Disposition: Nursing Facility LISA Cert External Planned Provider: [facility] LONG [facility]M CARE MEDICAID BED DCP follow-up note: CM SPOKE TO BEDSIDE NURSE WHO INFORMED CM THAT PT CANNOT DISCHARGE HOME REPORTING HE CANNOT WALK. CM SPOKE TO PT IN ROOM REGARDING DISCHARGE NEEDS AND PLANNING. CM DISCUSSED LACK OF REHAB BENEFIT WITH MEDICAID OTHER THAN HOME HEALTH OR OUTPATIENT THERAPY. PT REPORTS HE IS NOT WALKING WELL ENOUGH TO GO HOME ALONE. PT REPORTS HAVING NO FAMILY OR FRIENDS TO ASSIST WITH HIS CARE AT HOME. PT REPORTS HE CANNOT AFFORD FURTHER PERSONAL CARE AT HOME. PT UNDERSTANDS THAT HE CAN GO TO HALF-WAY FOR ALF CARE AND THAT THE HALF-WAY WILL RECEIVE HIS CHECK AND THAT WILL GO TO FUNDING PT'S CARE. PT ALSO UNDERSTANDS HE HAS TO STAY 3O DAYS AT THE VERY LEAST AND WILL RECEIVE RESTORATIVE CARE, NOT THERAPY SERVICES. LISTING PROVIDED, PT SIGNED CHOICE FOR [facility], IN THAT ORDER. CM NOTIFIED BEDSIDE NURSE. CM NOTIFIED [facility] DUR[facility]. CM CALLED [facility], , SPOKE TO LEONOR WHO WAS UNSURE IF THEY HAD ALF AVAILABILITY. CM FAXED REFERRAL TO [facility] AT [phone]. CM NOTIFIED [facility] OF [facility]ER CARE REFERRAL FOR [facility] AT [phone]. CM FAXED REFERRAL TO [facility] AT [phone]. CM WAITING ALF CARE ADMISSION DETERMINATIONS FROM [facility]. Yazan Oconnell, CASE MANAGEMENT DCP- Discharge Planning Updated by [id number]: Yazan Oconnell on 06/18/18 11:[address] Patient Name: YAZAN ANAYA Admission Status: ER Accout number: [id number] Admission Date: 06-15-2018 : 1955 Admission Diagnosis: Attending: TIO GONZALES Current LOS: 3 Anticipated DC Date: Planned Disposition: Home with Home Health Primary Insurance: MEDICAID [place] PLANNED EXTERNAL PROVIDER: [facility] Discharge Planning Comments: CM MET WITH PT IN ROOM TO DISCUSS DISCHARGE PLANNING AND NEEDS. PT REPORTS LIVING AT HOME ALONE. PT HAS CAREGIVERS FROM ALL AGES HOME CARE FOR BATHING ASSISTANCE. PT HAS PERSONAL CARE M,T,W,F; 8AM TO 3PM. PT HAS CPAP, GLUCOMETER, NEBULIZER, HOME AND PORTABLE OXYGEN, WALKER AND WHEELCHAIR FROM [facility] PATIENT. PT HAS HOME HEALTH NOW WITH [facility], THEY DID COME OUT AND ADMIT PRIOR TO PT RETURNING TO HOSPITAL BECAUSE HE COULD NOT BREATHE AND FELT HE "WENT HOME TOO SOON LAST TIME." CM DISCUSSED AVAILABILITY OF HOME HEALTH, REHAB SERVICES AND MEDICAL EQUIPMENT. PT DENIES DISCHARGE NEEDS OTHER THAN RESUMPTION OF HOME HEALTH, CHOICE LETTER SIGNED. PT REPORTS HIS COUSIN WILL PICK HIM UP FOR DISCHARGE HOME. CM FAXED HOSPITAL UPDATE TO [facility] AT [phone]. FOR DISCHARGE, NOTIFY [facility], , FAX DISCHARGE INFORMATION TO [facility] AT [phone]. Laundry Bag Punch Operator: Yazan Oconnell DCPIA - Discharge Planning Initial Assessment Updated by [id number]: Yazan Oconnell on 06/18/18 12:33 pm * Is the patient Alert and Oriented? Yes * How many steps to enter\\exit or inside your home? NONE * PCP DR. MCINTYRE * Pharmacy [facility] IN [place] * Preadmission Environment Home Alone * ADLs Partial Dependent * Partial ADLs (Assistance needed) Ambulation Bathing * Equipment CPAP Glucometer Nebulizer Oxygen Walker Wheelchair * Other Equipment HOME AND PORTABLE OXYGEN - [facility] PATIENT, PROVIDER * List name and contact numbers for known caregivers / representatives who currently or will assist patient after discharge: GELA HENDERSON, * Verbal permission to speak to the caregivers and representatives has been obtained from the patient. N/A * Community resources currently utilized Home Health Private Duty Care * Please name any agencies selected above. [facility]- M,T,W,F 8AM TO 3PM * Additional services required to return to the preadmission environment? No * Can the patient safely return to the preadmission environment? Yes * Has this patient been hospitalized within the prior 30 days at any hospital? Yes Coverage Notice Reviewer: [id number] Ezequiel Oconnell Notice Issued Date-Time: 06/18/2018 12:00 Notice Type: Patient Choice Letter Notice Delivered To: Patient Relationship to Patient: Effervescent Salts Compounder Name: Delivery Method: HAND - Hand Delivered Rosanne Days: Prior Verbal Notification: Recipient Understood Notice: Yes Recipient Signature: Yes Med Rec Note Co-signed by Attending: Coverage Notice Comment: [facility] Reviewer: [id number] Ezequiel Oconnell Notice Issued Date-Time: 06/28/2018 16:10 Notice Type: Patient Choice Letter Notice Delivered To: Patient Relationship to Patient: Effervescent Salts Compounder Name: Delivery Method: HAND - Hand Delivered Rosanne Days: Prior Verbal Notification: Recipient Understood Notice: Yes Recipient Signature: Yes Med Rec Note Co-signed by Attending: Coverage Notice Comment[facility] export: 06/28/18 6:19 p Patient Name: YAZAN ANAYA Page [phone] at 0954 All edits/amendments must be made on the electronic document DICTATION DATE: 06/29/18952 FINISHER MERCHANT PRODUCTS: JUSTIN 06/29/18952 RPT#: [id number] DC DATE: STATUS: ADM IN [facility] [address] [place] [address] END OF REPORT
--- NOTE | 2018-06-29 10:11 | MORECARE ---
CASE MANAGEMENT DISCHARGE SUMMARY PATIENT: YAZAN ANAYA UNIT: [id number] ADM DATE: 06/15/18 AGE: 62 : 53 SEX: M ROOM/BED: D.2120 AUTHOR: KIMBERLEY,DOC PHYSICIAN: REFERRING PHYSICIAN: TIO GONZALES MD DATE OF SERVICE: 06/29/18 Discharge Plan Patient Name: YAZAN ANAYA Facility: [facility]:[place] : 1955 Planned Disposition: Nursing Facility LISA Cert Anticipated Discharge Date: 06/29/18 Discharge Date: Expected LOS: 14 Initial Reviewer: [id number] Initial Review Date: 06/18/2018 Generated: 06/29/18 11:11 am Comments DCP- Discharge Planning Updated by [id number]: Yazan Oconnell on 06/29/18 9:[address] Patient Name: YAZAN ANAYA Encounter No: [id number] : 1955 Primary Insurance: MEDICAID [place] Anticipated DC Date: 06-29-2018 Planned Disposition: Nursing Facility LISA Cert External Planned Provider: WAITING ON PT'S DECISION DCP follow-up note: CM RECEIVED CALL FROM [facility] AND [facility]. THEY WILL NOT ACCEPT PT DUE TO BEING A LEVEL 4 SEX OFFENDER. CM SPOKE TO PT IN ROOM AND PT REPORTS HE IS A REGISTERED SEX OFFENDED AND FEELS THAT ONCE YOU DO YOUR TIME IN INTERMEDIATE, THINGS LIKE THIS SHOULD NOT FOLLOW YOU AROUND. CM EXPLAINED THAT CM DOES NOT KNOW OF A FACILITY THAT MAY ACCEPT PT KNOWING THIS INFORMATION. CM OFFERED TO SEND OUT REFERRALS STATEWIDE TO NURSING FACILITIES IN ATTEMPT TO FIND PLACEMENT AT ANY ACCEPTING FACILITY. PT IS NOT WILLING TO GO TO ANY FACILITY [facility]IDE. CM DISCUSSED OPTIONS:PT GETS BETTER AND CAN WALK AND CAN GO HOME WITH HOME HEALTH RESUMPTION; PT HAS SOMEONE TO ASSIST AT HOME AND HOME HEALTH CAN RESUME THERE; STAY WITH A FRIEND OR RELATIVE AND HOME HEALTH CAN RESUME; ALLOW CM TO SEND OUT [facility] REFERRALS AND TAKE WHATEVER FACILITY OFFERS PLACEMENT. PT NOT WILLING AT THIS TIME FOR REFERRALS TO BE SENT OUT AND WILL CONSIDER HIS OPTIONS AND LET CM KNOW DECISION SHORTLY. PT HAS BEEN TURNED DOWN BY HIS CHOICES FOR ALF PLACEMENT DUE TO BEING REGISTERED SEX OFFENDER. PT DOES NOT WANT CM SENDING [facility] ALF REFERRALS. PT "THINKING" ABOUT HIS OPTIONS. CM WAITING PT'S DECISION. HANNAH Marcus DCP- Discharge Planning Updated by [id number]: Yazan Oconnell on 06/28/18 6:[address] Patient Name: YAZAN ANAYA Encounter No: [id number] : 1955 Primary Insurance: MEDICAID [place] Anticipated DC Date: 06-29-2018 Planned Disposition: Nursing Facility LISA Cert External Planned Provider: [facility] CARE MEDICAID BED DCP follow-up note: CM SPOKE TO BEDSIDE NURSE WHO INFORMED CM THAT PT CANNOT DISCHARGE HOME REPORTING HE CANNOT WALK. CM SPOKE TO PT IN ROOM REGARDING DISCHARGE NEEDS AND PLANNING. CM DISCUSSED LACK OF REHAB BENEFIT WITH MEDICAID OTHER THAN HOME HEALTH OR OUTPATIENT THERAPY. PT REPORTS HE IS NOT WALKING WELL ENOUGH TO GO HOME ALONE. PT REPORTS HAVING NO FAMILY OR FRIENDS TO ASSIST WITH HIS CARE AT HOME. PT REPORTS HE CANNOT AFFORD FURTHER PERSONAL CARE AT HOME. PT UNDERSTANDS THAT HE CAN GO TO ALF FOR FDC CARE AND THAT THE ALF WILL RECEIVE HIS CHECK AND THAT WILL GO TO FUNDING PT'S CARE. PT ALSO UNDERSTANDS HE HAS TO STAY 3O DAYS AT THE VERY LEAST AND WILL RECEIVE RESTORATIVE CARE, NOT THERAPY SERVICES. LISTING PROVIDED, PT SIGNED CHOICE FOR [facility] AND [facility], IN THAT ORDER. CM NOTIFIED BEDSIDE NURSE. CM NOTIFIED [facility]. CM CALLED [facility], , SPOKE TO LEONOR WHO WAS UNSURE IF THEY HAD OCCUPATIONAL HEALTH MANAGER AVAILABILITY. CM FAXED REFERRAL TO [facility] AT [phone]. CM NOTIFIED [facility] OF [facility]DC CARE REFERRAL FOR [facility] AT [phone]. CM FAXED REFERRAL TO [facility] AT [phone]. CM WAITING OCCUPATIONAL HEALTH MANAGER CARE ADMISSION DETERMINATIONS FROM [facility]. HANNAH Marcus DCP- Discharge Planning Updated by [id number]: Yazan Oconnell on 06/18/18 11:[address] Patient Name: YAZAN ANAYA Admission Status: ER Accout number: [id number] Admission Date: 06-15-2018 : 1955 Admission Diagnosis: Attending: TIO GONZALES Current LOS: 3 Anticipated DC Date: Planned Disposition: Home with Home Health Primary Insurance: MEDICAID [place] PLANNED EXTERNAL PROVIDER: [facility] Discharge Planning Comments: CM MET WITH PT IN ROOM TO DISCUSS DISCHARGE PLANNING AND NEEDS. PT REPORTS LIVING AT HOME ALONE. PT HAS CAREGIVERS FROM ALL AGES HOME CARE FOR BATHING ASSISTANCE. PT HAS PERSONAL CARE M,T,W,F; 8AM TO 3PM. PT HAS CPAP, GLUCOMETER, NEBULIZER, HOME AND PORTABLE OXYGEN, WALKER AND WHEELCHAIR FROM [facility] PATIENT. PT HAS HOME HEALTH NOW WITH [facility], THEY DID COME OUT AND ADMIT PRIOR TO PT RETURNING TO HOSPITAL BECAUSE HE COULD NOT BREATHE AND FELT HE "WENT HOME TOO SOON LAST TIME." CM DISCUSSED AVAILABILITY OF HOME HEALTH, REHAB SERVICES AND MEDICAL EQUIPMENT. PT DENIES DISCHARGE NEEDS OTHER THAN RESUMPTION OF HOME HEALTH, CHOICE LETTER SIGNED. PT REPORTS HIS COUSIN WILL PICK HIM UP FOR DISCHARGE HOME. CM FAXED HOSPITAL UPDATE TO [facility] AT [phone]. FOR DISCHARGE, NOTIFY [facility], , FAX DISCHARGE INFORMATION TO [facility] AT [phone]. Vein Access Technician: Yzaan Oconnell DCPIA - Discharge Planning Initial Assessment Updated by [id number]: Yazan Oconnell on 06/18/18 12:33 pm * Is the patient Alert and Oriented? Yes * How many steps to enter\\exit or inside your home? NONE * PCP DR. MCINTYRE * Pharmacy [facility] IN [place] * Preadmission Environment Home Alone * ADLs Partial Dependent * Partial ADLs (Assistance needed) Ambulation Bathing * Equipment CPAP Glucometer Nebulizer Oxygen Walker Wheelchair * Other Equipment HOME AND PORTABLE OXYGEN - [facility] PATIENT, PROVIDER * List name and contact numbers for known caregivers / representatives who currently or will assist patient after discharge: DEE HENDERSONSIN, * Verbal permission to speak to the caregivers and representatives has been obtained from the patient. N/A * Community resources currently utilized Home Health Private Duty Care * Please name any agencies selected above. [facility]- M,T,W,F 8AM TO 3PM * Additional services required to return to the preadmission environment? No * Can the patient safely return to the preadmission environment? Yes * Has this patient been hospitalized within the prior 30 days at any hospital? Yes Coverage Notice Reviewer: [id number] - Yazan Oconnell Notice Issued Date-Time: 06/18/2018 12:00 Notice Type: Patient Choice Letter Notice Delivered To: Patient Relationship to Patient: Cook Helper Pastry Name: Delivery Method: HAND - Hand Delivered Rosanne Days: Prior Verbal Notification: Recipient Understood Notice: Yes Recipient Signature: Yes Med Rec Note Co-signed by Attending: Coverage Notice Comment: [facility] Reviewer: [id number] Ezequiel Oconnell Notice Issued Date-Time: 06/28/2018 16:10 Notice Type: Patient Choice Letter Notice Delivered To: Patient Relationship to Patient: Cook Helper Pastry Name: Delivery Method: HAND - Hand Delivered Rosanne Days: Prior Verbal Notification: Recipient Understood Notice: Yes Recipient Signature: Yes Med Rec Note Co-signed by Attending: Coverage Notice Comment: [facility] DP export: 06/29/18 8:54 a Patient Name: YAZAN ANAYA Page [id number] at 1011 All edits/amendments must be made on the electronic document DICTATION DATE: 06/29/18 1010 SAND CLEANING MACHINE OPERATOR: JUSTIN 06/29/18 1010 RPT#: [id number] DC DATE: STATUS: ADM IN [facility] [address] [place] [address] END OF REPORT
[2018-06-29 11:57] VITALS: BP 116/63
[2018-06-29 15:03] VITALS: BP 114/56
--- NOTE | 2018-06-29 16:56 | NUR ---
FSBS 167 REGULAR INSULIN GIVEN SQ LT ARM
--- NOTE | 2018-06-29 19:50 | NUR ---
RECIEVED UP IN CHAIR. ALERT AND ORIENTED X4. F/C INTACT WITH CLEAR YELLOW URINE DRAINING TO BEDSIDE DRAINAGE BAG. DSG'S TO BILATERAL LEGS AND FEET. DENIES ANY NEEDS AT THIS TIME. O2@ 4 LITERS PER HIGH FLOW CANNULA. IV TO LEFT FA SL..
[2018-06-29 22:08] VITALS: BP 111/62
--- NOTE | 2018-06-30 06:49 | NUR ---
RECHECKED FSBS. RESULT 99 AT THIS TIME.WILL REPORT TO [facility].
[2018-06-30 07:40] VITALS: BP 99/61
[2018-06-30 11:14] VITALS: BP 113/62
--- NOTE | 2018-06-30 12:13 | NUR ---
FSBS 100
--- NOTE | 2018-06-30 12:15 | NUR ---
WENT TO PATIENT ROOM TO MAKE SURE HE HAS PORTABLE OXYGEN FOR THE [facility] AND PATIENT UPSET THAT HE IS BEING DISCHARGED AND DOSEN'T UNDERSTAND WHY HE IS NOT GETTING TO GO TO THERAPY. PATIENT STATES I CAN'T WALK WELL ENOUGH SO WHEN I GET HOME I'M [facility]. THIS SENIOR DEVOPS ENGINEER TOLD PATIENT WE DON'T WANT THAT TO HAPPEN, LET ME READ SOME NOTES ON YOUR CHART AND SEE WHY YOU ARE NOT ABLE TO GET REHAB PLACEMENT AND EXITED THE ROOM.
--- NOTE | 2018-06-30 12:40 | NUR ---
WENT WITH HANNAH GALEANO TO SPEAK TO PATIENT ABOUT WHY HE CANNOT GET INTO A REHAB FACILITY AND PATIENT UNDERSTANDS WHY HIS OPTIONS ARE LIMITED NOW. CALLED PT AND SPOKE TO ASHLEY AND ASKED FOR HOME INSTRUCTIONS FOR PATIENT SO HE CAN WORK ON STRENTGHENING AT HOME. INFORMED PT THAT HE WILL HAVE HOME HEALTH AND WE ARE ASKING FOR HOME PT, BUT PATIENT NEEDS INFORMATION GIVEN TO HIM. ASHLEY SAID OK AND WILL GET INFORMATION TO PATIENT.
--- NOTE | 2018-06-30 12:52 | MORECARE ---
CASE MANAGEMENT DISCHARGE SUMMARY PATIENT: YAZAN ANAYA UNIT: [id number] ADM DATE: 06/15/18 AGE: 62 : 53 SEX: M ROOM/BED: D.2120 AUTHOR: KIMBERLEY,DOC PHYSICIAN: REFERRING PHYSICIAN: TIO GONZALES MD DATE OF SERVICE: 06/30/18 Discharge Plan Patient Name: YAZAN ANAYA Facility: [facility]:[place] : 1955 Planned Disposition: Nursing Facility LISA Cert Anticipated Discharge Date: 06/29/18 Discharge Date: Expected LOS: 14 Initial Reviewer: [id number] Initial Review Date: 06/18/2018 Generated: 06/30/18 1:51 pm Comments DCP- Discharge Planning Updated by [email or web address]: Gely Vera on 06/30/18 11:[address] Patient Name: YAZAN ANAYA Encounter No: [id number] : 1955 Primary Insurance: MEDICAID [place] Anticipated DC Date: 06-29-2018 Planned Disposition: Return home with resumption of [facility]. External Planned Provider: :[Ext Provider Name] CM was called by Celina JUAREZ with concerns about patient's discharge. YESICA reviewed chart and noted that patient is a level 4 sex offender and has been declined by SNF's. He is not eligible for Inpatient rehab due to insurance purposes. Patient has been upset and told the nurses he was going to go home and fall and come back to the hospital and [facility] us for sending him home. YESICA met with the patient along with Skyler RN today. YESICA explained that due to his level 4 sex offender status that the fci will not accept him. YESICA also explained that Medicaid does not cover inpatient rehab. YESICA told him that going home and falling to come back into the hospital would not change his discharge outcome. He stated he has a hard time getting to the bathroom and they took out his fatima. YESICA told him we would send him home with a urinal to assist him. Explained that he would still not be accepted to a snf nor could he go to inpatient rehab. He stated he was just upset when he said that and that he was not going to [facility]. YESICA has requested that PT bring him a home exercise plan, cm will contact [facility] to notify them of his discharge for resumption of his services. He said that the nurses didn't explain all of this to him and now he understands and is okay with his discharge. CM explained that case management is who knows this information and the nurses dont always know the rules of certain situations. CM assured him that the nurses did the right thing by calling cm to assist. He then said everything was okay and that his friend was on her way to pick him up. CM to notify and fax requested information to [facility]. DCP- Discharge Planning Updated by [id number]: Yazan Oconnell on 06/29/18 9:[address] Patient Name: YAZAN ANAYA Encounter No: [id number] : 1955 Primary Insurance: MEDICAID [facility] DC Date: 06-29-2018 Planned Disposition: Nursing Facility L[facility] External Planned Provider: WAITING ON PT'S DECISION DCP follow-up note: CM RECEIVED CALL FROM ADINA OF [facility] AND [facility]ENTINA OF [facility]. THEY WILL NOT ACCEPT PT DUE TO BEING A LEVEL 4 SEX OFFENDER. CM SPOKE TO PT IN ROOM AND PT REPORTS HE IS A REGISTERED SEX OFFENDED AND FEELS THAT ONCE YOU DO YOUR TIME IN NURSING HOME, THINGS LIKE THIS SHOULD NOT FOLLOW YOU AROUND. CM EXPLAINED THAT CM DOES NOT KNOW OF A FACILITY THAT MAY ACCEPT PT KNOWING THIS INFORMATION. CM OFFERED TO SEND OUT REFERRALS STATEWIDE TO NURSING FACILITIES IN ATTEMPT TO FIND PLACEMENT AT ANY ACCEPTING FACILITY. PT IS NOT WILLING TO GO TO ANY FACILITY STATEWIDE. CM DISCUSSED OPTIONS:PT GETS BETTER AND CAN WALK AND CAN GO HOME WITH HOME HEALTH RESUMPTION; PT HAS SOMEONE TO ASSIST AT HOME AND HOME HEALTH CAN RESUME THERE; STAY WITH A FRIEND OR RELATIVE AND HOME HEALTH CAN RESUME; ALLOW CM TO SEND OUT STATEWIDE REFERRALS AND TAKE WHATEVER FACILITY OFFERS PLACEMENT. PT NOT WILLING AT THIS TIME FOR REFERRALS TO BE SENT OUT AND WILL CONSIDER HIS OPTIONS AND LET CM KNOW DECISION SHORTLY. PT HAS BEEN TURNED DOWN BY HIS CHOICES FOR HALFWAY PLACEMENT DUE TO BEING REGISTERED SEX OFFENDER. PT DOES NOT WANT CM SENDING STATEWIDE HALFWAY REFERRALS. PT "THINKING" ABOUT HIS OPTIONS. CM WAITING PT'S DECISION. Yazan Oconnell, CASE MANAGEMENT DCP- Discharge Planning Updated by [id number]: Yazan Oconnell on 06/28/18 6:[address] Patient Name: YAZAN ANAYA Encounter No: [id number] : 1955 Primary Insurance: MEDICAID [place] Anticipated DC Date: 06-29-2018 Planned Disposition: Nursing Facility LISA Cert External Planned Provider: [facility] TERM CARE MEDICAID BED DCP follow-up note: CM SPOKE TO BEDSIDE NURSE WHO INFORMED CM THAT PT CANNOT DISCHARGE HOME REPORTING HE CANNOT WALK. CM SPOKE TO PT IN ROOM REGARDING DISCHARGE NEEDS AND PLANNING. CM DISCUSSED LACK OF REHAB BENEFIT WITH MEDICAID OTHER THAN HOME HEALTH OR OUTPATIENT THERAPY. PT REPORTS HE IS NOT WALKING WELL ENOUGH TO GO HOME ALONE. PT REPORTS HAVING NO FAMILY OR FRIENDS TO ASSIST WITH HIS CARE AT HOME. PT REPORTS HE CANNOT AFFORD FURTHER PERSONAL CARE AT HOME. PT UNDERSTANDS THAT HE CAN GO TO [facility] FOR PHOTOGRAPHIC EQUIPMENT TECHNICIAN CARE AND THAT THE HALFWAY WILL RECEIVE HIS CHECK AND THAT WILL GO TO FUNDING PT'S CARE. PT ALSO UNDERSTANDS HE HAS TO STAY 3O DAYS AT THE VERY LEAST AND WILL RECEIVE RESTORATIVE CARE, NOT THERAPY SERVICES. LISTING PROVIDED, PT SIGNED CHOICE FOR [facility] AND [facility], IN THAT ORDER. CM NOTIFIED BEDSIDE NURSE. CM NOTIFIED [facility]. CM CALLED [facility], , SPOKE TO LEONOR WHO WAS UNSURE IF THEY HAD [facility] AVAILABILITY. CM FAXED REFERRAL TO [facility] AT [phone]. CM NOTIFIED [facility] OF PHOTOGRAPHIC EQUIPMENT TECHNICIAN CARE REFERRAL FOR [facility] AT [phone]. CM FAXED REFERRAL TO [facility] AT [phone]. CM WAITING PHOTOGRAPHIC EQUIPMENT TECHNICIAN CARE ADMISSION DETERMINATIONS FROM [facility]. Yazan Oconnell, CASE MANAGEMENT DCP- Discharge Planning Updated by [id number]: Yazan Oconnell on 06/18/18 11:[address] Patient Name: YAZAN ANAYA Admission Status: ER Accout number: [id number] Admission Date: 06-15-2018 : 1955 Admission Diagnosis: Attending: TIO GONZALES Current LOS: 3 Anticipated DC Date: Planned Disposition: Home with Home Health Primary Insurance: MEDICAID [place] PLANNED EXTERNAL PROVIDER: [facility] Discharge Planning Comments: CM MET WITH PT IN ROOM TO DISCUSS DISCHARGE PLANNING AND NEEDS. PT REPORTS LIVING AT HOME ALONE. PT HAS CAREGIVERS FROM ALL AGES HOME CARE FOR BATHING ASSISTANCE. PT HAS PERSONAL CARE M,T,W,F; 8AM TO 3PM. PT HAS CPAP, GLUCOMETER, NEBULIZER, HOME AND PORTABLE OXYGEN, WALKER AND WHEELCHAIR FROM [facility]IENT. PT HAS HOME HEALTH NOW WITH [facility], THEY DID COME OUT AND ADMIT PRIOR TO PT RETURNING TO HOSPITAL BECAUSE HE COULD NOT BREATHE AND FELT HE "WENT HOME TOO SOON LAST TIME." CM DISCUSSED AVAILABILITY OF HOME HEALTH, REHAB SERVICES AND MEDICAL EQUIPMENT. PT DENIES DISCHARGE NEEDS OTHER THAN RESUMPTION OF HOME HEALTH, CHOICE LETTER SIGNED. PT REPORTS HIS COUSIN WILL PICK HIM UP FOR DISCHARGE HOME. CM FAXED HOSPITAL UPDATE TO [employer] AT [phone]. FOR DISCHARGE, NOTIFY [facility], , FAX DISCHARGE INFORMATION TO [employer] AT [phone]. Executive Coordinator: Yazan Oconnell DCPIA - Discharge Planning Initial Assessment Updated by [id number]: Yazan Oconnell on 06/18/18 12:33 pm * Is the patient Alert and Oriented? Yes * How many steps to enter\\exit or inside your home? NONE * PCP DR. MCINTYRE * Pharmacy [facility] [place] * Preadmission Environment Home Alone * ADLs Partial Dependent * Partial ADLs (Assistance needed) Ambulation Bathing * Equipment CPAP Glucometer Nebulizer Oxygen Walker Wheelchair * Other Equipment HOME AND PORTABLE OXYGEN - [facility], PROVIDER * List name and contact numbers for known caregivers / representatives who currently or will assist patient after discharge: JASE BRAY, COUSIN, * Verbal permission to speak to the caregivers and representatives has been obtained from the patient. N/A * Community resources currently utilized Home Health Private Duty Care * Please name any agencies selected above. [facility]- M,T,W,F 8AM TO 3PM * Additional services required to return to the preadmission environment? No * Can the patient safely return to the preadmission environment? Yes * Has this patient been hospitalized within the prior 30 days at any hospital? Yes Coverage Notice Reviewer: [id number] - Yazan Oconnell Notice Issued Date-Time: 06/18/2018 12:00 Notice Type: Patient Choice Letter Notice Delivered To: Patient Relationship to Patient: Stencil Sprayer Name: Delivery Method: HAND - Hand Delivered Rosanne Days: Prior Verbal Notification: Recipient Understood Notice: Yes Recipient Signature: Yes Med Rec Note Co-signed by Attending: Coverage Notice Comment: [facility] Reviewer: [id number] - Yazan Oconnell Notice Issued Date-Time: 06/28/2018 16:10 Notice Type: Patient Choice Letter Notice Delivered To: Patient Relationship to Patient: Stencil Sprayer Name: Delivery Method: HAND - Hand Delivered Rosanne Days: Prior Verbal Notification: Recipient Understood Notice: Yes Recipient Signature: Yes Med Rec Note Co-signed by Attending: Coverage Notice Comment: [facility] DP export: 06/29/18 9:11 a Patient Name: YAZAN ANAYA Page [id number] at 1252 All edits/amendments must be made on the electronic document DICTATION DATE: 06/30/18 1251 ARMAMENT AIRCRAFT MECHANIC: JUSTIN 06/30/18 1251 RPT#: [id number] DC DATE: STATUS: ADM IN [facility] [address] [place] [address] END OF REPORT
--- NOTE | 2018-06-30 13:05 | MORECARE ---
CASE MANAGEMENT DISCHARGE SUMMARY PATIENT: YAZAN ANAYA UNIT: [id number] ADM DATE: 06/15/18 AGE: 62 : 53 SEX: M ROOM/BED: D.2120 AUTHOR: KIMBERLEY,DOC PHYSICIAN: REFERRING PHYSICIAN: TIO GONZALES MD DATE OF SERVICE: 06/30/18 Discharge Plan Patient Name: YAZAN ANAYA Facility: [facility]:[place] : 1955 Planned Disposition: Nursing Facility LISA Cert Anticipated Discharge Date: 06/29/18 Discharge Date: Expected LOS: 14 Initial Reviewer: [id number] Initial Review Date: 06/18/2018 Generated: 06/30/18 2:04 pm Comments DCP- Discharge Planning Updated by [id number]: Gely Vera on 06/30/18 11:[address] Patient Name: YAZAN ANAYA Encounter No: [id number] : 1955 Primary Insurance: MEDICAID [place] Anticipated DC Date: 06-29-2018 Planned Disposition: Return home with resumption of [facility]. External Planned Provider: :[Ext Provider Name] CM was called by Celina JUAREZ with concerns about patient's discharge. YESICA reviewed chart and noted that patient is a level 4 sex offender and has been declined by SNF's. He is not eligible for Inpatient rehab due to insurance purposes. Patient has been upset and told the nurses he was going to go home and fall and come back to the hospital and [facility] us for sending him home. YESICA met with the patient along with Skyler RN today. YESICA explained that due to his level 4 sex offender status that the fpc will not accept him. YESICA also explained that Medicaid does not cover inpatient rehab. YESICA told him that going home and falling to come back into the hospital would not change his discharge outcome. He stated he has a hard time getting to the bathroom and they took out his fatima. YESICA told him we would send him home with a urinal to assist him. Explained that he would still not be accepted to a snf nor could he go to inpatient rehab. He stated he was just upset when he said that and that he was not going to [facility]. YESICA has requested that PT bring him a home exercise plan, cm will contact [facility] to notify them of his discharge for resumption of his services. He said that the nurses didn't explain all of this to him and now he understands and is okay with his discharge. CM explained that case management is who knows this information and the nurses dont always know the rules of certain situations. CM assured him that the nurses did the right thing by calling cm to assist. He then said everything was okay and that his friend was on her way to pick him up. CM to notify and fax requested information to [facility]. Gely Vera Appended by Gely Vera on 06/30/2018 12:59 JITNEY DRIVER: CM also called [facility] and left a message on Lulu's voice mail that the patient was discharging home today and would need his services resumed. CM also notified [facility] of discharge and faxed dc order, summary, DCP- Discharge Planning Updated by [id number]: Yazan Oconnell on 06/29/18 9:[address] Patient Name: YAZAN ANAYA Encounter No: [id number] : 1955 Primary Insurance: MEDICAID [place] Anticipated DC Date: 06-29-2018 Planned Disposition: Nursing Facility [facility] External Planned Provider: WAITING ON PT'S DECISION DCP follow-up note: CM RECEIVED CALL FROM ADINA OF [facility] AND [facility] OF [facility]. THEY WILL NOT ACCEPT PT DUE TO BEING A LEVEL 4 SEX OFFENDER. CM SPOKE TO PT IN ROOM AND PT REPORTS HE IS A REGISTERED SEX OFFENDED AND FEELS THAT ONCE YOU DO YOUR TIME IN [facility], THINGS LIKE THIS SHOULD NOT FOLLOW YOU AROUND. YESICA EXPLAINED THAT CM DOES NOT KNOW OF A FACILITY THAT MAY ACCEPT PT KNOWING THIS INFORMATION. CM OFFERED TO SEND OUT REFERRALS STATEWIDE TO NURSING FACILITIES IN ATTEMPT TO FIND PLACEMENT AT ANY ACCEPTING FACILITY. PT IS NOT WILLING TO GO TO ANY FACILITY STATEWIDE. CM DISCUSSED OPTIONS:PT GETS BETTER AND CAN WALK AND CAN GO HOME WITH HOME HEALTH RESUMPTION; PT HAS SOMEONE TO ASSIST AT HOME AND HOME HEALTH CAN RESUME THERE; STAY WITH A FRIEND OR RELATIVE AND HOME HEALTH CAN RESUME; ALLOW CM TO SEND OUT STATEWIDE REFERRALS AND TAKE WHATEVER FACILITY OFFERS PLACEMENT. PT NOT WILLING AT THIS TIME FOR REFERRALS TO BE SENT OUT AND WILL CONSIDER HIS OPTIONS AND LET CM KNOW DECISION SHORTLY. PT HAS BEEN TURNED DOWN BY HIS CHOICES FOR PRISON PLACEMENT DUE TO BEING REGISTERED SEX OFFENDER. PT DOES NOT WANT CM SENDING [facility] PRISON REFERRALS. PT "THINKING" ABOUT HIS OPTIONS. CM WAITING PT'S DECISION. HANNAH Marcus DCP- Discharge Planning Updated by [id number]: Yazan Oconnell on 06/28/18 6:[address] Patient Name: YAZAN ANAYA Encounter No: [id number] : 1955 Primary Insurance: MEDICAID [place] Anticipated DC Date: 06-29-2018 Planned Disposition: Nursing Facility LISA Cert External Planned Provider: [facility] TERM CARE MEDICAID BED DCP follow-up note: CM SPOKE TO BEDSIDE NURSE WHO INFORMED CM THAT PT CANNOT DISCHARGE HOME REPORTING HE CANNOT WALK. CM SPOKE TO PT IN ROOM REGARDING DISCHARGE NEEDS AND PLANNING. CM DISCUSSED LACK OF REHAB BENEFIT WITH MEDICAID OTHER THAN HOME HEALTH OR OUTPATIENT THERAPY. PT REPORTS HE IS NOT WALKING WELL ENOUGH TO GO HOME ALONE. PT REPORTS HAVING NO FAMILY OR FRIENDS TO ASSIST WITH HIS CARE AT HOME. PT REPORTS HE CANNOT AFFORD FURTHER PERSONAL CARE AT HOME. PT UNDERSTANDS THAT HE CAN GO TO PRISON FOR FPC CARE AND THAT THE PRISON WILL RECEIVE HIS CHECK AND THAT WILL GO TO FUNDING PT'S CARE. PT ALSO UNDERSTANDS HE HAS TO STAY 3O DAYS AT THE VERY LEAST AND WILL RECEIVE RESTORATIVE CARE, NOT THERAPY SERVICES. LISTING PROVIDED, PT SIGNED CHOICE FOR [facility] AND [facility], IN THAT ORDER. CM NOTIFIED BEDSIDE NURSE. CM NOTIFIED [facility]. CM CALLED [facility], , SPOKE TO LEONOR WHO WAS UNSURE IF THEY HAD FPC AVAILABILITY. CM FAXED REFERRAL TO [facility] AT [phone]. CM NOTIFIED [facility] OF [facility] REFERRAL FOR [facility] AT [phone]. CM FAXED REFERRAL TO [facility] AT [phone]. CM WAITING [facility] ADMISSION DETERMINATIONS FROM [facility]. HANNAH Marcus DCP- Discharge Planning Updated by [id number]: Yazan Oconnell on 06/18/18 11:[address] Patient Name: YAZAN ANAYA Admission Status: ER Accout number: [id number] Admission Date: 06-15-2018 : 1955 Admission Diagnosis: Attending: TIO GONZALES Current LOS: 3 Anticipated DC Date: Planned Disposition: Home with Home Health Primary Insurance: MEDICAID [place] PLANNED EXTERNAL PROVIDER: [facility] Discharge Planning Comments: CM MET WITH PT IN ROOM TO DISCUSS DISCHARGE PLANNING AND NEEDS. PT REPORTS LIVING AT HOME ALONE. PT HAS CAREGIVERS FROM ALL AGES HOME CARE FOR BATHING ASSISTANCE. PT HAS PERSONAL CARE M,T,W,F; 8AM TO 3PM. PT HAS CPAP, GLUCOMETER, NEBULIZER, HOME AND PORTABLE OXYGEN, WALKER AND WHEELCHAIR FROM [facility] PATIENT. PT HAS HOME HEALTH NOW WITH [facility], THEY DID COME OUT AND ADMIT PRIOR TO PT RETURNING TO HOSPITAL BECAUSE HE COULD NOT BREATHE AND FELT HE "WENT HOME TOO SOON LAST TIME." CM DISCUSSED AVAILABILITY OF HOME HEALTH, REHAB SERVICES AND MEDICAL EQUIPMENT. PT DENIES DISCHARGE NEEDS OTHER THAN RESUMPTION OF HOME HEALTH, CHOICE LETTER SIGNED. PT REPORTS HIS COUSIN WILL PICK HIM UP FOR DISCHARGE HOME. CM FAXED HOSPITAL UPDATE TO [facility] AT [phone]. FOR DISCHARGE, NOTIFY [facility], , FAX DISCHARGE INFORMATION TO [facility] AT [phone]. Nnp: Yazan Oconnell DCPIA - Discharge Planning Initial Assessment Updated by [id number]: Yazan Oconnell on 06/18/18 12:33 pm * Is the patient Alert and Oriented? Yes * How many steps to enter\\exit or inside your home? NONE * PCP DR. MCINTYRE * Pharmacy [facility] IN [place] * Preadmission Environment Home Alone * ADLs Partial Dependent * Partial ADLs (Assistance needed) Ambulation Bathing * Equipment CPAP Glucometer Nebulizer Oxygen Walker Wheelchair * Other Equipment HOME AND PORTABLE OXYGEN - [facility]IENT, PROVIDER * List name and contact numbers for known caregivers / representatives who currently or will assist patient after discharge: JASE BRAY, COUSIN, * Verbal permission to speak to the caregivers and representatives has been obtained from the patient. N/A * Community resources currently utilized Home Health Private Duty Care * Please name any agencies selected above. [facility]- M,T,W,F 8AM TO 3PM * Additional services required to return to the preadmission environment? No * Can the patient safely return to the preadmission environment? Yes * Has this patient been hospitalized within the prior 30 days at any hospital? Yes Coverage Notice Reviewer: [id number] Ezequiel Oconnell Notice Issued Date-Time: 06/18/2018 12:00 Notice Type: Patient Choice Letter Notice Delivered To: Patient Relationship to Patient: Trestleman Name: Delivery Method: HAND - Hand Delivered Rosanne Days: Prior Verbal Notification: Recipient Understood Notice: Yes Recipient Signature: Yes Med Rec Note Co-signed by Attending: Coverage Notice Comment: [facility] Reviewer: [id number] Ezequiel Oconnell Notice Issued Date-Time: 06/28/2018 16:10 Notice Type: Patient Choice Letter Notice Delivered To: Patient Relationship to Patient: Trestleman Name: Delivery Method: HAND - Hand Delivered Rosanne Days: Prior Verbal Notification: Recipient Understood Notice: Yes Recipient Signature: Yes Med Rec Note Co-signed by Attending: Coverage Notice Comment: [facility] DP export: 06/30/18 11:51 a Patient Name: YAZAN ANAYA Page [id number] at 1305 All edits/amendments must be made on the electronic document DICTATION DATE: 06/30/18 1304 SOLID WASTE FACILITY OPERATOR: JUSTIN 06/30/18 1304 RPT#: [id number] DC DATE: STATUS: ADM IN [facility] [address] [place] [address] END OF REPORT
--- NOTE | 2018-06-30 13:11 | MORECARE ---
CASE MANAGEMENT DISCHARGE SUMMARY PATIENT: YAZAN ANAYA UNIT: [id number] ADM DATE: 06/15/18 AGE: 62 : 53 SEX: M ROOM/BED: D.2120 AUTHOR: KIMBERLEY,DOC PHYSICIAN: REFERRING PHYSICIAN: TIO GONZALES MD DATE OF SERVICE: 06/30/18 Discharge Plan Patient Name: YAZAN ANAYA Facility: [facility]:[place] : 1955 Planned Disposition: Nursing Facility LISA Cert Anticipated Discharge Date: 06/29/18 Discharge Date: Expected LOS: 14 Initial Reviewer: [id number] Initial Review Date: 06/18/2018 Generated: 06/30/18 2:11 pm Comments DCP- Discharge Planning Updated by [email or web address]: Gely Vera on 06/30/18 11:[address] Patient Name: YAZAN ANAYA Encounter No: [id number] : 1955 Primary Insurance: MEDICAID [place] Anticipated DC Date: 06-29-2018 Planned Disposition: Return home with resumption of [facility]. External Planned Provider: :[Ext Provider Name] CM was called by Celina JUAREZ with concerns about patient's discharge. YESICA reviewed chart and noted that patient is a level 4 sex offender and has been declined by SNF's. He is not eligible for Inpatient rehab due to insurance purposes. Patient has been upset and told the nurses he was going to go home and fall and come back to the hospital and [facility] us for sending him home. YESICA met with the patient along with Skyler RN today. YESICA explained that due to his level 4 sex offender status that the skilled nursing will not accept him. YESICA also explained that Medicaid does not cover inpatient rehab. YESICA told him that going home and falling to come back into the hospital would not change his discharge outcome. He stated he has a hard time getting to the bathroom and they took out his fatima. YESICA told him we would send him home with a urinal to assist him. Explained that he would still not be accepted to a snf nor could he go to inpatient rehab. He stated he was just upset when he said that and that he was not going to [facility]. YESICA has requested that PT bring him a home exercise plan, cm will contact [facility] to notify them of his discharge for resumption of his services. He said that the nurses didn't explain all of this to him and now he understands and is okay with his discharge. CM explained that case management is who knows this information and the nurses dont always know the rules of certain situations. CM assured him that the nurses did the right thing by calling cm to assist. He then said everything was okay and that his friend was on her way to pick him up. CM to notify and fax requested information to [facility]. Gely Vera Appended by Gely Vera on 06/30/2018 12:59 HIDE MILL MAN: CM also called [facility] and left a message on Lulu's voice mail that the patient was discharging home today and would need his services resumed. CM also notified [facility] of discharge and faxed dc order, summary, DCP- Discharge Planning Updated by [id number]: Yazan Oconnell on 06/29/18 9:[address] Patient Name: YAAZN ANAYA Encounter No: [id number] : 1955 Primary Insurance: MEDICAID [place] Anticipated DC Date: 06-29-2018 Planned Disposition: Nursing Facility [facility] External Planned Provider: WAITING ON PT'S DECISION DCP follow-up note: CM RECEIVED CALL FROM [facility] OF [facility] AND [facility]. THEY WILL NOT ACCEPT PT DUE TO BEING A LEVEL 4 SEX OFFENDER. CM SPOKE TO PT IN ROOM AND PT REPORTS HE IS A REGISTERED SEX OFFENDED AND FEELS THAT ONCE YOU DO YOUR TIME IN LONGTERM, THINGS LIKE THIS SHOULD NOT FOLLOW YOU AROUND. YESICA EXPLAINED THAT CM DOES NOT KNOW OF A FACILITY THAT MAY ACCEPT PT KNOWING THIS INFORMATION. CM OFFERED TO SEND OUT REFERRALS STATEWIDE TO NURSING FACILITIES IN ATTEMPT TO FIND PLACEMENT AT ANY ACCEPTING FACILITY. PT IS NOT WILLING TO GO TO ANY FACILITY STATEWIDE. CM DISCUSSED OPTIONS:PT GETS BETTER AND CAN WALK AND CAN GO HOME WITH HOME HEALTH RESUMPTION; PT HAS SOMEONE TO ASSIST AT HOME AND HOME HEALTH CAN RESUME THERE; STAY WITH A FRIEND OR RELATIVE AND HOME HEALTH CAN RESUME; ALLOW CM TO SEND OUT STATEWIDE REFERRALS AND TAKE WHATEVER FACILITY OFFERS PLACEMENT. PT NOT WILLING AT THIS TIME FOR REFERRALS TO BE SENT OUT AND WILL CONSIDER HIS OPTIONS AND LET CM KNOW DECISION SHORTLY. PT HAS BEEN TURNED DOWN BY HIS CHOICES FOR [facility] FACILITY PLACEMENT DUE TO BEING REGISTERED SEX OFFENDER. PT DOES NOT WANT CM SENDING [facility] REFERRALS. PT "THINKING" ABOUT HIS OPTIONS. CM WAITING PT'S DECISION. HANNAH Marcus DCP- Discharge Planning Updated by [id number]: Yazan Oconnell on 06/28/18 6:[address] Patient Name: YAZAN ANAYA Encounter No: [id number] : 1955 Primary Insurance: MEDICAID [place] Anticipated DC Date: 06-29-2018 Planned Disposition: Nursing Facility LISA Cert External Planned Provider: [facility] MEDICAID BED DCP follow-up note: CM SPOKE TO BEDSIDE NURSE WHO INFORMED CM THAT PT CANNOT DISCHARGE HOME REPORTING HE CANNOT WALK. CM SPOKE TO PT IN ROOM REGARDING DISCHARGE NEEDS AND PLANNING. CM DISCUSSED LACK OF REHAB BENEFIT WITH MEDICAID OTHER THAN HOME HEALTH OR OUTPATIENT THERAPY. PT REPORTS HE IS NOT WALKING WELL ENOUGH TO GO HOME ALONE. PT REPORTS HAVING NO FAMILY OR FRIENDS TO ASSIST WITH HIS CARE AT HOME. PT REPORTS HE CANNOT AFFORD FURTHER PERSONAL CARE AT HOME. PT UNDERSTANDS THAT HE CAN GO TO [facility] FACILITY FOR RETIREMENT CARE AND THAT THE [facility] FACILITY WILL RECEIVE HIS CHECK AND THAT WILL GO TO FUNDING PT'S CARE. PT ALSO UNDERSTANDS HE HAS TO STAY 3O DAYS AT THE VERY LEAST AND WILL RECEIVE RESTORATIVE CARE, NOT THERAPY SERVICES. LISTING PROVIDED, PT SIGNED CHOICE FOR [facility], IN THAT ORDER. CM NOTIFIED BEDSIDE NURSE. CM NOTIFIED [facility] DURAN. CM CALLED [facility], , SPOKE TO LEONOR WHO WAS UNSURE IF THEY HAD RETIREMENT AVAILABILITY. CM FAXED REFERRAL TO [facility] AT [phone]. CM NOTIFIED [facility] REFERRAL FOR [facility] AT [phone]. CM FAXED REFERRAL TO [facility] AT [phone]. CM WAITING [facility] ADMISSION DETERMINATIONS FROM [facility]. HANNAH Marcus DCP- Discharge Planning Updated by [id number]: Yazan Oconnell on 06/18/18 11:[address] Patient Name: YAZAN ANAYA Admission Status: ER Accout number: [id number] Admission Date: 06-15-2018 : 1955 Admission Diagnosis: Attending: TIO GONZALES Current LOS: 3 Anticipated DC Date: Planned Disposition: Home with Home Health Primary Insurance: MEDICAID [place] PLANNED EXTERNAL PROVIDER: [facility] Discharge Planning Comments: CM MET WITH PT IN ROOM TO DISCUSS DISCHARGE PLANNING AND NEEDS. PT REPORTS LIVING AT HOME ALONE. PT HAS CAREGIVERS FROM ALL AGES HOME CARE FOR BATHING ASSISTANCE. PT HAS PERSONAL CARE M,T,W,F; 8AM TO 3PM. PT HAS CPAP, GLUCOMETER, NEBULIZER, HOME AND PORTABLE OXYGEN, WALKER AND WHEELCHAIR FROM [facility]. PT HAS HOME HEALTH NOW WITH [facility], THEY DID COME OUT AND ADMIT PRIOR TO PT RETURNING TO HOSPITAL BECAUSE HE COULD NOT BREATHE AND FELT HE "WENT HOME TOO SOON LAST TIME." CM DISCUSSED AVAILABILITY OF HOME HEALTH, REHAB SERVICES AND MEDICAL EQUIPMENT. PT DENIES DISCHARGE NEEDS OTHER THAN RESUMPTION OF HOME HEALTH, CHOICE LETTER SIGNED. PT REPORTS HIS COUSIN WILL PICK HIM UP FOR DISCHARGE HOME. CM FAXED HOSPITAL UPDATE TO [facility] AT [phone]. FOR DISCHARGE, NOTIFY [facility], , FAX DISCHARGE INFORMATION TO [facility] AT [phone]. Golf Course Manager: Yazan Oconnell DCPIA - Discharge Planning Initial Assessment Updated by [id number]: Yazan Oconnell on 06/18/18 12:33 pm * Is the patient Alert and Oriented? Yes * How many steps to enter\\exit or inside your home? NONE * PCP DR. MCINTYRE * Pharmacy [facility] IN [place] * Preadmission Environment Home Alone * ADLs Partial Dependent * Partial ADLs (Assistance needed) Ambulation Bathing * Equipment CPAP Glucometer Nebulizer Oxygen Walker Wheelchair * Other Equipment HOME AND PORTABLE OXYGEN - [facility], PROVIDER * List name and contact numbers for known caregivers / representatives who currently or will assist patient after discharge: JASE BRAY, COUSIN, * Verbal permission to speak to the caregivers and representatives has been obtained from the patient. N/A * Community resources currently utilized Home Health Private Duty Care * Please name any agencies selected above. [facility]- M,T,W,F 8AM TO 3PM * Additional services required to return to the preadmission environment? No * Can the patient safely return to the preadmission environment? Yes * Has this patient been hospitalized within the prior 30 days at any hospital? Yes External Providers External Provider: [facility] Next Contact Date: 06/18/2018 Service Request Date: Service Type: Resolution: Reviewer: Comments: Coverage Notice Reviewer: [id number] Ezequiel Oconnell Notice Issued Date-Time: 06/18/2018 12:00 Notice Type: Patient Choice Letter Notice Delivered To: Patient Relationship to Patient: Negative Cutter Name: Delivery Method: HAND - Hand Delivered Rosanne Days: Prior Verbal Notification: Recipient Understood Notice: Yes Recipient Signature: Yes Med Rec Note Co-signed by Attending: Coverage Notice Comment: [facility] Reviewer: [id number] Ezequiel Oconnell Notice Issued Date-Time: 06/28/2018 16:10 Notice Type: Patient Choice Letter Notice Delivered To: Patient Relationship to Patient: Negative Cutter Name: Delivery Method: HAND - Hand Delivered Rosanne Days: Prior Verbal Notification: Recipient Understood Notice: Yes Recipient Signature: Yes Med Rec Note Co-signed by Attending: Coverage Notice Comment: [facility] DP export: 06/30/18 11:51 a Patient Name: YAZAN ANAYA Page [id number] at 1311 All edits/amendments must be made on the electronic document DICTATION DATE: 06/30/18 1311 KILN BURNER HELPER: JUSTIN 06/30/18 1311 RPT#: [id number] DC DATE: STATUS: ADM IN [facility] [address] [place] [address] END OF REPORT
--- NOTE | 2018-06-30 13:20 | NUR ---
WRITTEN EXERCISES PROVIDED TO PATIENT BY PT. ASHLEY
--- NOTE | 2018-06-30 16:55 | NUR ---
REVIEWED DISCHARGE INSTRUCTIONS [facility] PT STATES UNDERSTANDING COPY GIVEN SALINE LOCK DCD TO LFA WITH IV CATHETER INTACT PT DISCHARGED HOME IN STABLE CONDITION WITH ALL PERSONAL BELONGINGS VIA W/C WHEN PT TAKEN TO PRIVATE VEHICLE FAMILY WAS UPSET STATED THEY HAD BEEN WAITING FOR 2 HOURS PT HAD TOLD [facility] 30 MINUTES PRIOR TO DISCHARGE THAT FAMILY WAS HERE
--- NOTE | 2018-07-02 08:57 | MORECARE ---
CASE MANAGEMENT DISCHARGE SUMMARY PATIENT: YAZAN ANAYA UNIT: [id number] ADM DATE: 06/15/18 AGE: 62 : 53 SEX: M ROOM/BED: D.2120 AUTHOR: KIMBERLEY,DOC PHYSICIAN: REFERRING PHYSICIAN: TIO GONZALES MD DATE OF SERVICE: 07/02/18 Discharge Plan Patient Name: YAZAN ANAYA Facility: [facility]:[place] : 1955 Planned Disposition: Nursing Facility LISA Cert Anticipated Discharge Date: 06/30/18 Discharge Date: 06/30/2018 Expected LOS: 15 Initial Reviewer: [id number] Initial Review Date: 06/18/2018 Generated: 07/02/18 9:57 am Comments DCP- Discharge Planning Updated by [id number]: Gely Vera on 06/30/18 11:[address] Patient Name: YAZAN ANAYA Encounter No: [id number] : 1955 Primary Insurance: MEDICAID [place] Anticipated DC Date: 06-29-2018 Planned Disposition: Return home with resumption of [facility]. External Planned Provider: :[Ext Provider Name] CM was called by Celina JUAREZ with concerns about patient's discharge. YESICA reviewed chart and noted that patient is a level 4 sex offender and has been declined by SNF's. He is not eligible for Inpatient rehab due to insurance purposes. Patient has been upset and told the nurses he was going to go home and fall and come back to the hospital and [facility] us for sending him home. YESICA met with the patient along with Skyler RN today. YESIAC explained that due to his level 4 sex offender status that the skilled nursing will not accept him. YESICA also explained that Medicaid does not cover inpatient rehab. YESICA told him that going home and falling to come back into the hospital would not change his discharge outcome. He stated he has a hard time getting to the bathroom and they took out his fatima. YESICA told him we would send him home with a urinal to assist him. Explained that he would still not be accepted to a snf nor could he go to inpatient rehab. He stated he was just upset when he said that and that he was not going to [facility] hospital. YESICA has requested that PT bring him a home exercise plan, cm will contact [facility] to notify them of his discharge for resumption of his services. He said that the nurses didn't explain all of this to him and now he understands and is okay with his discharge. CM explained that case management is who knows this information and the nurses dont always know the rules of certain situations. CM assured him that the nurses did the right thing by calling cm to assist. He then said everything was okay and that his friend was on her way to pick him up. CM to notify and fax requested information to [facility]. Gely Vera Appended by Gely Vera on 06/30/2018 12:59 DRAFTER CIVIL ENGINEERING: CM also called [facility] and left a message on Lulu's voice mail that the patient was discharging home today and would need his services resumed. CM also notified [facility] of discharge and faxed dc order, summary, DCP- Discharge Planning Updated by [id number]: Yazan Oconnell on 06/29/18 9:[address] Patient Name: YAZAN ANAYA Encounter No: [id number] : 1955 Primary Insurance: MEDICAID [place] Anticipated DC Date: 06-29-2018 Planned Disposition: Nursing Facility [facility] External Planned Provider: WAITING ON PT'S DECISION DCP follow-up note: CM RECEIVED CALL FROM [facility] OF [facility] AND [facility]. THEY WILL NOT ACCEPT PT DUE TO BEING A LEVEL 4 SEX OFFENDER. CM SPOKE TO PT IN ROOM AND PT REPORTS HE IS A REGISTERED SEX OFFENDED AND FEELS THAT ONCE YOU DO YOUR TIME IN CARE HOME, THINGS LIKE THIS SHOULD NOT FOLLOW YOU AROUND. YESICA EXPLAINED THAT CM DOES NOT KNOW OF A FACILITY THAT MAY ACCEPT PT KNOWING THIS INFORMATION. CM OFFERED TO SEND OUT REFERRALS STATEWIDE TO NURSING FACILITIES IN ATTEMPT TO FIND PLACEMENT AT ANY ACCEPTING FACILITY. PT IS NOT WILLING TO GO TO ANY FACILITY STATEWIDE. CM DISCUSSED OPTIONS:PT GETS BETTER AND CAN WALK AND CAN GO HOME WITH HOME HEALTH RESUMPTION; PT HAS SOMEONE TO ASSIST AT HOME AND HOME HEALTH CAN RESUME THERE; STAY WITH A FRIEND OR RELATIVE AND HOME HEALTH CAN RESUME; ALLOW CM TO SEND OUT STATEWIDE REFERRALS AND TAKE WHATEVER FACILITY OFFERS PLACEMENT. PT NOT WILLING AT THIS TIME FOR REFERRALS TO BE SENT OUT AND WILL CONSIDER HIS OPTIONS AND LET CM KNOW DECISION SHORTLY. PT HAS BEEN TURNED DOWN BY HIS CHOICES FOR SNF PLACEMENT DUE TO BEING REGISTERED SEX OFFENDER. PT DOES NOT WANT CM SENDING STATEWIDE SNF REFERRALS. PT "THINKING" ABOUT HIS OPTIONS. CM WAITING PT'S DECISION. HANNAH Marcus MANAGEMENT DCP- Discharge Planning Updated by [id number]: Yazan Oconnell on 06/28/18 6:[address] Patient Name: YAZAN ANAYA Encounter No: [id number] : 1955 Primary Insurance: MEDICAID [facility] DC Date: 06-29-2018 Planned Disposition: Nursing Facility LISA Cert External Planned Provider: [facility] MEDICAID BED DCP follow-up note: CM SPOKE TO BEDSIDE NURSE WHO INFORMED CM THAT PT CANNOT DISCHARGE HOME REPORTING HE CANNOT WALK. CM SPOKE TO PT IN ROOM REGARDING DISCHARGE NEEDS AND PLANNING. CM DISCUSSED LACK OF REHAB BENEFIT WITH MEDICAID OTHER THAN HOME HEALTH OR OUTPATIENT THERAPY. PT REPORTS HE IS NOT WALKING WELL ENOUGH TO GO HOME ALONE. PT REPORTS HAVING NO FAMILY OR FRIENDS TO ASSIST WITH HIS CARE AT HOME. PT REPORTS HE CANNOT AFFORD FURTHER PERSONAL CARE AT HOME. PT UNDERSTANDS THAT HE CAN GO TO SNF FOR TUNNELING MACHINE OPERATOR CARE AND THAT THE SNF WILL RECEIVE HIS CHECK AND THAT WILL GO TO FUNDING PT'S CARE. PT ALSO UNDERSTANDS HE HAS TO STAY 3O DAYS AT THE VERY LEAST AND WILL RECEIVE RESTORATIVE CARE, NOT THERAPY SERVICES. LISTING PROVIDED, PT SIGNED CHOICE FOR [facility], IN THAT ORDER. CM NOTIFIED BEDSIDE NURSE. CM NOTIFIED [facility] UDRAN. CM CALLED [facility], , SPOKE TO LEONOR WHO WAS UNSURE IF THEY HAD ALF AVAILABILITY. CM FAXED REFERRAL TO [facility] AT [phone]. CM NOTIFIED [facility] OF [facility]ARE RE[facility]ERRAL FOR [facility] AT [phone]. CM FAXED REFERRAL TO [facility] AT [phone]. CM WAITING TUNNELING MACHINE OPERATOR CARE ADMISSION DETERMINATIONS FROM [facility]. HANNAH Marcus MANAGEMENT DCP- Discharge Planning Updated by [id number]: Yazan Oconnell on 06/18/18 11:[address] Patient Name: YAZAN ANAYA Admission Status: ER Accout number: [id number] Admission Date: 06-15-2018 : 1955 Admission Diagnosis: Attending: TIO GONZALES Current LOS: 3 Anticipated DC Date: Planned Disposition: Home with Home Health Primary Insurance: MEDICAID [place] PLANNED EXTERNAL PROVIDER: [facility] Discharge Planning Comments: CM MET WITH PT IN ROOM TO DISCUSS DISCHARGE PLANNING AND NEEDS. PT REPORTS LIVING AT HOME ALONE. PT HAS CAREGIVERS FROM ALL AGES HOME CARE FOR BATHING ASSISTANCE. PT HAS PERSONAL CARE M,T,W,F; 8AM TO 3PM. PT HAS CPAP, GLUCOMETER, NEBULIZER, HOME AND PORTABLE OXYGEN, WALKER AND WHEELCHAIR FROM [facility] PATIENT. PT HAS HOME HEALTH NOW WITH [facility], THEY DID COME OUT AND ADMIT PRIOR TO PT RETURNING TO HOSPITAL BECAUSE HE COULD NOT BREATHE AND FELT HE "WENT HOME TOO SOON LAST TIME." CM DISCUSSED AVAILABILITY OF HOME HEALTH, REHAB SERVICES AND MEDICAL EQUIPMENT. PT DENIES DISCHARGE NEEDS OTHER THAN RESUMPTION OF HOME HEALTH, CHOICE LETTER SIGNED. PT REPORTS HIS COUSIN WILL PICK HIM UP FOR DISCHARGE HOME. CM FAXED HOSPITAL UPDATE TO [facility] AT [phone]. FOR DISCHARGE, NOTIFY [facility], , FAX DISCHARGE INFORMATION TO [facility] AT [phone]. Inspector Packer Glass Container: Yazan Oconnell DCPIA - Discharge Planning Initial Assessment Updated by [id number]: Yazan Oconnell on 06/18/18 12:33 pm * Is the patient Alert and Oriented? Yes * How many steps to enter\\exit or inside your home? NONE * PCP DR. MCINTYRE * Pharmacy [facility] IN [place] * Preadmission Environment Home Alone * ADLs Partial Dependent * Partial ADLs (Assistance needed) Ambulation Bathing * Equipment CPAP Glucometer Nebulizer Oxygen Walker Wheelchair * Other Equipment HOME AND PORTABLE OXYGEN - [facility] PATIENT, PROVIDER * List name and contact numbers for known caregivers / representatives who currently or will assist patient after discharge: GELA HENDERSON, * Verbal permission to speak to the caregivers and representatives has been obtained from the patient. N/A * Community resources currently utilized Home Health Private Duty Care * Please name any agencies selected above. [facility]- M,T,W,F 8AM TO 3PM * Additional services required to return to the preadmission environment? No * Can the patient safely return to the preadmission environment? Yes * Has this patient been hospitalized within the prior 30 days at any hospital? Yes Coverage Notice Reviewer: [id number] Ezequiel Oconnell Notice Issued Date-Time: 06/18/2018 12:00 Notice Type: Patient Choice Letter Notice Delivered To: Patient Relationship to Patient: Medicaid Billing Specialist Name: Delivery Method: HAND - Hand Delivered Rosanne Days: Prior Verbal Notification: Recipient Understood Notice: Yes Recipient Signature: Yes Med Rec Note Co-signed by Attending: Coverage Notice Comment: [facility] Reviewer: [id number] Ezequiel Oconnell Notice Issued Date-Time: 06/28/2018 16:10 Notice Type: Patient Choice Letter Notice Delivered To: Patient Relationship to Patient: Medicaid Billing Specialist Name: Delivery Method: HAND - Hand Delivered Rosanne Days: Prior Verbal Notification: Recipient Understood Notice: Yes Recipient Signature: Yes Med Rec Note Co-signed by Attending: Coverage Notice Comment[facility] DP export: 06/30/18 12:11 p Patient Name: YAZAN ANAYA Page [phone] at 0857 All edits/amendments must be made on the electronic document DICTATION DATE: 07/02/1857 LAV CREWMAN: JUSTIN 07/02/18 0857 RPT#: [id number] DC DATE:06/30/18 STATUS: DIS IN [facility] [address] [place] [address] END OF REPORT
== END 2018-06-30 16:55 | disposition home health service (06) | DRG 291 ==
LOC: D.ER 18:01 → D.M2 20:32 → D.EDHOLD 20:32 → D.M2 21:12
PROVIDERS: Emergency Medicine; Family Medicine; Internal Medicine Nephrology; Internal Medicine Pulmonary Disease; ADMIT Internal Medicine Nephrology
DX: I11.0 Hypertensive heart disease with heart failure (principal); J96.21 Acute and chronic respiratory failure with hypoxia; J18.9 Pneumonia, unspecified organism; N17.9 Acute kidney failure, unspecified; F17.213 Nicotine dependence, cigarettes, with withdrawal; J47.0 Bronchiectasis with acute lower respiratory infection; L02.214 Cutaneous abscess of groin; J98.11 Atelectasis; I50.33 Acute on chronic diastolic (congestive) heart failure; Z86.718 Personal history of other venous thrombosis and embolism; E11.40 Type 2 diabetes mellitus with diabetic neuropathy, unspecified; E11.51 Type 2 diabetes mellitus with diabetic peripheral angiopathy without gangrene; Y95 Nosocomial condition; E11.621 Type 2 diabetes mellitus with foot ulcer; L97.529 Non-pressure chronic ulcer of other part of left foot with unspecified severity; Z99.81 Dependence on supplemental oxygen; I95.9 Hypotension, unspecified

== ENCOUNTER 2018-07-23 11:19 | Inpatient (IN) | payer MEDICAID ==
[~2018-07-23] VITALS: Ht 188 cm; Wt 130.2 kg
[2018-07-23] VITALS (8 sets, daily range): BP systolic 92–130; BP diastolic 44–70; BMI 36.9
[~2018-07-23 11:19] MED LIST changes: +GABAPENTIN100 MG PO; -GLUCOPHAGE1000 MG PO; +GLUCOPHAGE500 MG PO
[2018-07-23 11:41] LABS: BASOPHILS 0.2 % (0-2); EOSINOPHILS 0 % (0-7); IMMATURE GRANULOCYTES 0.9 % (0-5); LYMPHOCYTES 3.3 % (15-50); MCH 27.6 pg (26.0-34.0); MCHC 32.4 g/dL (31.0-37.0); MCV 85.3 fL (80.0-100.0); MEAN PLATELET VOLUME 10.2 fL (7.4-10.4); MONOCYTES 6.2 % (2-11); NEUTROPHILS 89.4 % (40-80); RBC 4.34 10x6/uL (4.20-6.10); RDW 16.1 % (11.5-14.5); WBC 12.3 10x3/uL (4.8-10.8)
[2018-07-23 11:45] LABS: PLATELET COUNT 213 10x3/uL (130-400)
[2018-07-23 12:08] LABS: ALBUMIN 2.9 g/dL (3.4-5.0); ALKALINE PHOSPHATASE 93 U/L (46-116); ALT (SGPT) 11 U/L (10-68); BILIRUBIN - TOTAL 0.78 mg/dL (0.2-1.3); CALC OSMOLALITY 246 mosm/kg (275-300); CALCIUM 8.7 mg/dL (8.5-10.1); CARBON DIOXIDE 27.4 mmol/L (21.0-32.0); CHLORIDE - SERUM 95 mmol/L (98-107); CREATININE - SERUM 1.2 mg/dL (0.6-1.3); GLUCOSE 138 mg/dL (74-106); POTASSIUM - SERUM 3.7 mmol/L (3.5-5.1); PROTEIN - SERUM 7.9 g/dL (6.4-8.2); SODIUM 121 mmol/L (136-145); UREA NITROGEN 14 mg/dL (7-18); eGFR NON AFRICAN AMERICAN 65 mL/min (90-120)
[2018-07-23 12:17] LABS: CREATINE KINASE 260 UL (21-232); PRO BNP 5555 pg/mL (0-125)
[2018-07-23 13:51] LABS: APPEARANCE HAZY (CLEAR); BILIRUBIN NEGATIVE (NEGATIVE); COLOR YELLOW (YELLOW); GLUCOSE NEGATIVE (NEGATIVE); KETONE MODERATE mg/dL (NEGATIVE); NITRITE NEGATIVE (NEGATIVE); PROTEIN 1+ mg/dL (NEGATIVE); SPECIFIC GRAVITY 1.025 (1.005-1.020)
[2018-07-23 13:53] LABS: AMORPHOUS SEDIMENT >1+ /lpf (NONE SEEN); BACTERIA MODERATE /hpf (NONE SEEN); EPITHELIAL CELLS OCC /hpf (0-5); MUCUS <1+ /lpf (NONE SEEN); RED CELLS - URINE RARE /hpf (0-5); WHITE CELLS - URINE RARE /hpf (0-5)
--- NOTE | 2018-07-23 15:45 | NUR ---
LEVAQUIN INFUSION COMPLETE AT THIS TIME.
[2018-07-23 17:33] LABS: CKMB 1.1 U/L (0.0-3.6); CREATINE KINASE 291 UL (21-232)
[2018-07-23 17:38] LABS: TROPONIN-I 0.076 ng/mL (0.000-0.060)
--- NOTE | 2018-07-23 20:00 | NUR ---
REPORT FROM CHONG Frank RN. FLOOR WILL NOT TAKE REPORT. CHARGE NURSE INFORMED.
--- NOTE | 2018-07-23 21:36 | NUR ---
CALLED TO REQUEST TELE MONITOR
--- NOTE | 2018-07-23 21:42 | NUR ---
REC'D PATIENT TO FLOOR. NO S/S OF DISTRESS. PUT PATIENT IN DROPLET ISOLATION FOR FLU + RESULTS. PATIENT DENIES NEEDS AT THIS TIME. BED IN LOWEST POSITION AND CALL LIGHT WITHIN REACH. WILL CONTINUE TO MONITOR.
[2018-07-23 23:28] LABS: CKMB 1.3 U/L (0.0-3.6); CREATINE KINASE 314 UL (21-232)
[2018-07-23 23:29] LABS: TROPONIN-I 0.071 ng/mL (0.000-0.060)
[2018-07-24 02:03] VITALS: BP 93/51
[2018-07-24 08:08] VITALS: BP 103/57
[2018-07-24 08:10] LABS: BASOPHILS 0 % (0-2); EOSINOPHILS 0 % (0-7); HEMATOCRIT 34.9 % (42.0-54.0); IMMATURE GRANULOCYTES 0.6 % (0-5); LYMPHOCYTES 7.8 % (15-50); MCH 27.1 pg (26.0-34.0); MCHC 31.5 g/dL (31.0-37.0); MEAN PLATELET VOLUME 10.9 fL (7.4-10.4); NEUTROPHILS 80.6 % (40-80); PLATELET COUNT 176 10x3/uL (130-400); RBC 4.06 10x6/uL (4.20-6.10); RDW 16.1 % (11.5-14.5)
[2018-07-24 08:14] LABS: WBC 6.8 10x3/uL (4.8-10.8)
[2018-07-24 08:38] LABS: ALBUMIN 2.5 g/dL (3.4-5.0); ALKALINE PHOSPHATASE 87 U/L (46-116); ALT (SGPT) 9 U/L (10-68); BILIRUBIN - TOTAL 0.49 mg/dL (0.2-1.3); CALCIUM 8.4 mg/dL (8.5-10.1); CARBON DIOXIDE 33.2 mmol/L (21.0-32.0); CHLORIDE - SERUM 100 mmol/L (98-107); CKMB 1.7 U/L (0.0-3.6); CREATINE KINASE 325 UL (21-232); CREATININE - SERUM 1.2 mg/dL (0.6-1.3); PROTEIN - SERUM 7.4 g/dL (6.4-8.2); SODIUM 139 mmol/L (136-145); eGFR NON AFRICAN AMERICAN 65 mL/min (90-120)
[2018-07-24 08:40] LABS: CALC OSMOLALITY 288 mosm/kg (275-300); GLUCOSE 235 mg/dL (74-106); TROPONIN-I 0.063 ng/mL (0.000-0.060); UREA NITROGEN 20 mg/dL (7-18)
--- NOTE | 2018-07-24 09:35 | NUR ---
AM MEDS GIVEN AT THIS TIME. PT TOOK ALL MEDS WITH NO TROUBLE SWALLOWING. PT A/O X4, A LITTLE SOB ON 6L NC. MONITOR SHOWING SR 70. PT ON DROPLET ISOLTION FOR FLU. ASSISTED PT TO USE URINAL, PT ONLY HAD 50CC OF YELLOW URINE. PT DENIES ANY OTHER NEEDS AT THIS TIME. CALL LIGHT IN REACH, NAD NOTED, WILL CONTINUE TO MONITOR.
[2018-07-24 12:39] VITALS: BP 101/59
[2018-07-24 13:03] VITALS: Ht 188 cm; Wt 130.2 kg
[2018-07-24 16:13] VITALS: BP 109/68
--- NOTE | 2018-07-24 19:20 | NUR ---
PATIENT RESTING IN BED WITH EYES CLOSED. NO SIGNS OF DISTRESS. RESPONDS TO VOICE. DENIES HAVING ANY NEEDS AT THIS TIME. BED IN LOWEST POSITION. SIDE RAILS UP. CALL LIGHT IN REACH. CONTINUE PLAN OF CARE.
--- NOTE | 2018-07-24 19:32 | NUR ---
PT LYING IN BED. EYES CLOSED. NO SIGNS OF DISTRESS OR PAIN. BED IN LOW. SIDE RAILS X2. RESP EVEN AND UNLABORED. CALL LIGHT IN REACH. WILL CONTINUE TO MONITOR.
[2018-07-24 20:00] VITALS: BP 108/60
--- NOTE | 2018-07-24 22:50 | NUR ---
PT LYING IN BED. CALL LIGHT IN REACH. DENIES NEEDS OR PAIN. BED IN LOW. RESP EVEN AND UNLABORED.
[2018-07-25] VITALS: BP 100/48
--- NOTE | 2018-07-25 00:10 | NUR ---
RECEIVED PATIENT. LYING IN BED SUPINE EYES CLOSED RESTING. CONTINUES ON 4L VIA NC. RR EVEN AND UNLABORED. CALL LIGHT WITHIN REACH, FALL PRECAUTIONS IN PLACE
--- NOTE | 2018-07-25 02:19 | NUR ---
LYING IN BED ON LEFT SIDE EYES CLOSED RESTING. CONTINUES ON 4L VIA NC. RR EVEN AND UNLABORED. CALL LIGHT WITHIN REACH, FALL PRECAUTIONS IN PLACE. WILL CONTINUE TO MONTIOR
[2018-07-25 04:00] VITALS: BP 94/55
--- NOTE | 2018-07-25 05:57 | NUR ---
LYING ON RIGHT SIDE EYES CLOSED RESTING. RR EVEN AND UNLABORED. CONTINUES ON 4L VIA NC. CALL LIGHT WITHIN REACH, FALL PRECAUTIONS IN PLACE
[2018-07-25 07:30] VITALS: BP 108/65
[2018-07-25 07:33] LABS: BASOPHILS 0 % (0-2); EOSINOPHILS 0.1 % (0-7); HEMATOCRIT 36.4 % (42.0-54.0); HEMOGLOBIN 11.3 g/dL (13.5-17.5); IMMATURE GRANULOCYTES 0.9 % (0-5); LYMPHOCYTES 14.2 % (15-50); MCH 27.3 pg (26.0-34.0); MCV 87.9 fL (80.0-100.0); MEAN PLATELET VOLUME 10.7 fL (7.4-10.4); MONOCYTES 12.3 % (2-11); NEUTROPHILS 72.5 % (40-80); PLATELET COUNT 180 10x3/uL (130-400); RBC 4.14 10x6/uL (4.20-6.10); RDW 16.4 % (11.5-14.5); WBC 6.8 10x3/uL (4.8-10.8)
[2018-07-25 07:48] LABS: CALCIUM 7.9 mg/dL (8.5-10.1); CARBON DIOXIDE 37.4 mmol/L (21.0-32.0); CREATININE - SERUM 1.1 mg/dL (0.6-1.3); POTASSIUM - SERUM 3.4 mmol/L (3.5-5.1)
--- NOTE | 2018-07-25 08:00 | NUR ---
PT RESTING IN BED. CONTINUES DROPLET ISOLATION R/T INFLUENZA. SHIFT ASSEMENT PERFORMED. ASSISTED PT WITH USING THE URINAL. APPLIED SCD SLEEVES AND TURNED ON SCD MACHINE. AM MEDS GIVEN ORDERED, PT TOLERATED WELL. DENIES PAIN AT THIS TIME. DENIES NEEDS AT THIS TIME, WILL CONT TO FOLLOW PLAN OF CARE
[2018-07-25 11:30] VITALS: BP 99/60
--- NOTE | 2018-07-25 14:31 | NUR ---
ASSISTED PT WITH BED BATH, COMPLETE LINEN BED CHANGE PROVIDED. ASSISTED PT WITH USING THE URINAL. FLUSHED PT PIV WITH NS AND BEGAN PT ANTIBIOTIC TRANSFUSION ORDERED. DENIES PAIN AT THIS TIME, DENIES ANY OTHER NEEDS AT THIS TIME, WILL CONT TO FOLLOW PLAN OF CARE
--- NOTE | 2018-07-25 17:32 | MORECARE ---
CASE MANAGEMENT DISCHARGE SUMMARY PATIENT: YAZAN ANAYA UNIT: [id number] ADM DATE: 07/23/18 AGE: 62 : 54 SEX: M ROOM/BED: D.1207 AUTHOR: SB CHU PHYSICIAN: REFERRING PHYSICIAN: TIO GONZALES MD DATE OF SERVICE: 07/25/18 Discharge Plan Patient Name: [facility]AZAN ANAYA [facility] [facility] 1955 Planned Disposition: Anticipated Discharge Date: Discharge Date: Expected LOS: Initial Reviewer: [email or web address] Initial Review Date: 07/25/2018 Generated: 07/25/18 6:32 pm Patient Name: YAZAN ANAYA Page 26841 at 1732 All edits/amendments must be made on the electronic document DICTATION DATE: 07/25/181730 K 12 SCHOOL PROFESSIONAL: JUSTIN 07/25/181730 RPT#: [id number] DC DATE: STATUS: ADM IN [facility] [address] [place] [address] END OF REPORT
--- NOTE | 2018-07-25 17:39 | MORECARE ---
CASE MANAGEMENT DISCHARGE SUMMARY PATIENT: YAZAN ANAYA UNIT: [id number] ADM DATE: 07/23/18 AGE: 62 : 54 SEX: M ROOM/BED: D.1207 AUTHOR: SB CHU PHYSICIAN: REFERRING PHYSICIAN: TIO GONZALES MD DATE OF SERVICE: 07/25/18 Discharge Plan Patient Name: YAZAN ANAYA Facility: [facility]:[place] : 1955 Planned Disposition: Anticipated Discharge Date: Discharge Date: Expected LOS: Initial Reviewer: [email or web address] Initial Review Date: 07/25/2018 Generated: 07/25/18 6:38 pm Comments DCP- Discharge Planning Updated by [email or web address]: Berenice Rodriguez on 07/25/18 4:[address] Patient Name: YAZAN ANAYA Admission Status: ER Accout number: [id number] Admission Date: 07-23-2018 : 1955 Admission Diagnosis: Attending: TIO GONZALES Current LOS: 2 Anticipated DC Date: Planned Disposition: Primary Insurance: MEDICAID [place] Discharge Planning Comments: CM MET WITH PATIENT ABOUT DC PLANNING/NEEDS. STATES PLANS TO DC TO HOME AND RESUME HH WITH [facility]. CM TO FOLLOW AND ASSIST NEEDED WITH DC PLANNING/NEEDS. Sole Sewer Hand: Berenice Rodriguez DCPIA - Discharge Planning Initial Assessment Updated by [email or web address]: Berenice Rodriguez on 07/25/18 5:34 pm * Is the patient Alert and Oriented? Yes * PCP SING * [facility] * Preadmission Environment Home Alone * ADLs Independent * Equipment CPAP Glucometer Nebulizer Oxygen Walker Wheelchair * List name and contact numbers for known caregivers / representatives who currently or will assist patient after discharge: GELA LAGUNA, * Verbal permission to speak to the caregivers and representatives has been obtained from the patient. Yes * Community resources currently utilized Home Health * Please name any agencies selected above. [facility] PATIENT. * Has this patient been hospitalized within the prior 30 days at any hospital? No Last DP export: 07/25/18 4:32 p Patient Name: YAZAN ANAYA Page 26040 at 1739 All edits/amendments must be made on the electronic document DICTATION DATE: 07/25/181737 MARBLE FINISHER: JUSTIN 07/25/181737 RPT#: [id number] [place] DATE: STATUS: ADM IN [facility] [address] [place] [address] END OF REPORT
[2018-07-25 17:51] VITALS: BP 106/50
[2018-07-25 20:00] VITALS: BP 93/58
[2018-07-26] VITALS: BP 111/59
[2018-07-26 04:00] VITALS: BP 105/66
--- NOTE | 2018-07-26 04:18 | NUR ---
I have reviewed this patient and I concur with the Shift Assessment completed by the Licensed Practical Nurse today this shift.
[2018-07-26 05:51] LABS: BASOPHILS 0.3 % (0-2); EOSINOPHILS 0 % (0-7); HEMATOCRIT 38.1 % (42.0-54.0); HEMOGLOBIN 11.9 g/dL (13.5-17.5); IMMATURE GRANULOCYTES 1.6 % (0-5); LYMPHOCYTES 19.5 % (15-50); MCH 27.4 pg (26.0-34.0); MCHC 31.2 g/dL (31.0-37.0); MCV 87.6 fL (80.0-100.0); MEAN PLATELET VOLUME 10.9 fL (7.4-10.4); MONOCYTES 11.5 % (2-11); NEUTROPHILS 67.1 % (40-80); PLATELET COUNT 147 10x3/uL (130-400); RBC 4.35 10x6/uL (4.20-6.10); RDW 16.1 % (11.5-14.5); WBC 6.2 10x3/uL (4.8-10.8)
[2018-07-26 06:14] LABS: CALC OSMOLALITY 281 mosm/kg (275-300); CALCIUM 7.8 mg/dL (8.5-10.1); CARBON DIOXIDE 38.8 mmol/L (21.0-32.0); CHLORIDE - SERUM 100 mmol/L (98-107); CREATININE - SERUM 0.9 mg/dL (0.6-1.3); GLUCOSE 92 mg/dL (74-106); POTASSIUM - SERUM 3.5 mmol/L (3.5-5.1); SODIUM 141 mmol/L (136-145); UREA NITROGEN 14 mg/dL (7-18); eGFR NON AFRICAN AMERICAN > 90 mL/min (90-120)
[2018-07-26 08:28] VITALS: BP 100/64
--- NOTE | 2018-07-26 08:30 | NUR ---
MORNING MEDICATIONS GIVEN WITH A SIP OF WATER. VERIFIED OKAY TO GIVE PT IS NPO FOR SURGERY TODAY. STATES ITS OKAY TO GIVE. PT SWALLOWED WITHOUT ANY DIFFICULTIES NOTED. SHIFT ASSESSMENT COMPLETED. PT IS VERY IRRITABLE AND RUDE AND WILL BARELY RESPOND TO MY QUESTIONS AND THEN MIMICKS WHAT I SAY. WILL LEAVE PT ALONE UNLESS HE WANTS TO COMMUNICATE OR NEEDS SOMETHING. NO CURRENT NEEDS. WILL CPOC.
--- NOTE | 2018-07-26 10:08 | NUR ---
PT ASKED FOR ASSISTANCE TO VOID. ASSISTED HIM WITH THE URINAL AND HE WAS UNABLE TO VOID BUT FEELS THE NEED. UPON ASSESSING HIS BLADDER I NOTED IT APPEARED DISTENDED. BLADDER SCAN PERFORMED AND REVEALED 627ML OF URINE RETENTION. PAGED PRIMARY AND INSERTED AN INDWELLING VERGARA R/T RETENTION. 16FR PLACED WITHOUT ANY DIFFICULTIES OR RESISTANCE NOTED. STAT LOCK SECURED TO R.INNER THIGH. VERGARA BAG DRAINING TO GRAVITY OFF R.SIDE OF BED, CURRENTLY 450ML OF CLEAR YELLOW URINE DRAINING. NO FURTHER NEEDS AT THIS TIME. PT REMAINS NPO FOR PROCEDURE. CL IN REACH, BED IN LOWEST, SIDE RAILS X2. WILL CTM.
[2018-07-26 12:00] VITALS: BP 93/58
--- NOTE | 2018-07-26 12:59 | NUR ---
PT STILL WAITING TO LEAVE FOR SURGERY. VERGARA BAG DRAINING CLEAR YELLOW URINE TO GRAVITY OFF R.SIDE OF BED. NO KINKS OR ISSUES NOTED IN TUBING. PT DENIES ANY CURRENT PAIN OR NEEDS AT THIS TIME. CL IN REACH, BED IN LOWEST, SIDE RAILS X2. WILL CTM.
--- NOTE | 2018-07-26 14:14 | NUR ---
SURGERY CALLED TO PRE-OP PT. PRE-OP MEDICATIONS GIVEN ORDERED. EMPTIED PTS VERGARA BAG OF 1750CC OF CLEAR YELLOW URINE. PT IS RESTING QUIETLY IN BED WAITING TO GO. NO CURRENT NEEDS. WILL CTM.
--- NOTE | 2018-07-26 14:21 | NUR ---
PT LEAVING FOR SURGERY NOW. NO FURTHER NEEDS.
--- NOTE | 2018-07-26 16:14 | MORECARE ---
CASE MANAGEMENT DISCHARGE SUMMARY PATIENT: YAZAN ANAYA UNIT: [id number] ADM DATE: 07/23/18 AGE: 62 : 53 SEX: M ROOM/BED: D.1207 AUTHOR: KIMBERLEYDOC PHYSICIAN: REFERRING PHYSICIAN: TIO GONZALES MD DATE OF SERVICE: 07/26/18 Discharge Plan Patient Name: YAZAN ANAYA Facility: [facility]:[place] : 1955 Planned Disposition: Anticipated Discharge Date: Discharge Date: Expected LOS: Initial Reviewer: [email or web address] Initial Review Date: 07/25/2018 Generated: 07/26/18 5:14 pm Comments DCP- Discharge Planning Updated by [email or web address]: Berenice Rodriguez on 07/26/18 3:[address] Patient Name: YAZAN ANAYA Admission Status: ER Accout number: [id number] Admission Date: 07-23-2018 : 1955 Admission Diagnosis:SHORTNESS OF BREATH Attending: TIO GONZALES Current LOS: 3 Anticipated DC Date: Planned Disposition: Primary Insurance: MEDICAID [place] Discharge Planning Comments: FRIEND OF PATIENT SPOKE TO ME ABOUT PATIENT'S LIVING SITUATION. 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 CM WILL FOLLOW AND ASSIST WITH DC PLANNING/NEEDS. I WILL CHECK WITH A NURSING FACILITY AND SEE WHAT THEY SAY ABOUT THIS. Car Construction Superintendent: Berenice Rodriguez DCP- Discharge Planning Updated by [email or web address]: Berenice Rodriguez on 07/25/18 4:[address] Patient Name: YAZAN ANAYA Admission Status: ER Accout number: [id number] Admission Date: 07-23-2018 : 1955 Admission Diagnosis: Attending: TIO GONZALES Current LOS: 2 Anticipated DC Date: Planned Disposition: Primary Insurance: MEDICAID [place] Discharge Planning Comments: CM MET WITH PATIENT ABOUT DC PLANNING/NEEDS. STATES PLANS TO DC TO HOME AND RESUME HH WITH [facility]. CM TO FOLLOW AND ASSIST NEEDED WITH DC PLANNING/NEEDS. Car Construction Superintendent: Berenice Rodriguez DCPIA - Discharge Planning Initial Assessment Updated by [email or web address]: Berenice Rodriguez on 07/25/18 5:34 pm * Is the patient Alert and Oriented? Yes * PCP SING * [facility] * Preadmission Environment Home Alone * ADLs Independent * Equipment CPAP Glucometer Nebulizer Oxygen Walker Wheelchair * List name and contact numbers for known caregivers / representatives who currently or will assist patient after discharge: GELA LAGUNA, * Verbal permission to speak to the caregivers and representatives has been obtained from the patient. Yes * Community resources currently utilized Home Health * Please name any agencies selected above. [facility] PATIENT. * Has this patient been hospitalized within the prior 30 days at any hospital? No Last DP export: 07/25/18 4:39 p Patient Name: YAZAN ANAYA Page [phone] at 1614 All edits/amendments must be made on the electronic document DICTATION DATE: 07/26/181612 SUBACUTE NURSE: JUSTIN 07/26/181612 RPT#: [id number] DC DATE: STATUS: ADM IN [facility] [address] [place] [address] END OF REPORT
--- NOTE | 2018-07-26 16:43 | NUR ---
PT BACK FROM PROCEDURE A&OX4. PT HAS NEW DRSG TO HIS LEFT FOOT CDI. RECONNECTED PT TO HIS IV FLUIDS SO HIS ANBX CAN FINISH. SCDS BACK IN PLACE. PLACED PT BACK ON HIS NC @4L PULSE OX 95% VSS AND BEING MONITERED PER POST PROCEDURE POLICY. ORDERED PT A DINNER TRAY. PT SITTING UP RESTING QUIETLY WITH FAMILY AT BEDSIDE. NO CURRENT NEEDS. WILL CTM.
--- NOTE | 2018-07-26 18:34 | NUR ---
PTS VITALS REMAINED STABLE POST PROCEDURE. PT ATE 100% OF HIS DINNER AND IS SITTING UP IN BED RESTING QUIETLY WITH FAMILY AT BEDSIDE. CL IN REACH. NO CURRENT NEEDS. WILL PASS ON IN SHIFT REPORT.
--- NOTE | 2018-07-26 20:00 | NUR ---
AWAKE,ALERT.WATCHING TV QUEITLY. NO DISTRESS NOTED. RESP EVEN AND UNALBORED. O2 @ 4L PER NC ON. DRESSING INTACT TO LEFT FOOT WITH NO DRAINAGE NOTED. VERGARA PATENT AND DRAINING. IV TO LEFT HAND INTACT WITHOUT REDNESS OR EDEMA NOTED. CL IN REACH
[2018-07-27 00:25] VITALS: BP 94/51
--- NOTE | 2018-07-27 02:14 | NUR ---
I have reviewed this patient and I concur with the Shift Assessment completed by the Licensed Practical Nurse today this shift.
[2018-07-27 05:15] VITALS: BP 114/78
--- NOTE | 2018-07-27 08:04 | NUR ---
AM ROUNDS COMPLETED. INTRODUCED MYSELF TO PT PRIMARY RN FOR TODAYS SHIFT. PT IS A&O SITTING UP IN BED EATING BREAKFAST. SHIFT ASSESSMENT COMPLETED. PTS LEFT FOOT DRSG IS COMPLETELY OFF AND HIS INCISION IS JUST OPEN TO AIR. I ASKED PT WHAT HAPPENED AND HE STATES HE HAD "NO IDEA" CALLED AND NEW ORDERS OBTAINED AND I WILL DRESS IT. WILL CTM.
[2018-07-27 08:32] LABS: BASOPHILS 0.5 % (0-2); EOSINOPHILS 0 % (0-7); HEMATOCRIT 39.6 % (42.0-54.0); HEMOGLOBIN 12.5 g/dL (13.5-17.5); IMMATURE GRANULOCYTES 1.1 % (0-5); MCH 27.7 pg (26.0-34.0); MCHC 31.6 g/dL (31.0-37.0); MCV 87.6 fL (80.0-100.0); MONOCYTES 9.2 % (2-11); NEUTROPHILS 72.2 % (40-80); PLATELET COUNT 148 10x3/uL (130-400); RBC 4.52 10x6/uL (4.20-6.10); RDW 15.9 % (11.5-14.5); WBC 6.4 10x3/uL (4.8-10.8)
[2018-07-27 08:38] LABS: CALCIUM 8.2 mg/dL (8.5-10.1); CHLORIDE - SERUM 98 mmol/L (98-107); CREATININE - SERUM 0.9 mg/dL (0.6-1.3); GLUCOSE 96 mg/dL (74-106); POTASSIUM - SERUM 3.3 mmol/L (3.5-5.1); SODIUM 140 mmol/L (136-145); eGFR NON AFRICAN AMERICAN > 90 mL/min (90-120)
[2018-07-27 08:39] LABS: CALC OSMOLALITY 277 mosm/kg (275-300); UREA NITROGEN 9 mg/dL (7-18)
[2018-07-27 08:41] LABS: CARBON DIOXIDE 41.9 mmol/L (21.0-32.0)
[2018-07-27 11:53] VITALS: BP 94/64
--- NOTE | 2018-07-27 13:18 | NUR ---
Nutrition Follow Up: Pt reported that his appetite is fair. He said that he is trying to eat more. Pt refused supplements at this time. RD encouraged pt to increase po intake as able. Noted pt is POD 1. Diet: ADA PO Intake: 58% meal avg No BM since admit Labs reviewed Meds noted including Lasix, Reglan Rec continue current diet. RD following.
--- NOTE | 2018-07-27 14:57 | EC ---
PATIENT:YAZAN ANAYA DATE OF SERVICE: 07/23/18 SEX: M MEDICAL RECORD: [id number] DATE OF : [birth year] [facility] AGE OF PATIENT: 62 ADMISSION DATE: 07/23/18 REFERRING PHYSICIAN: INTERPRETING PHYSICIAN: VENTURA MAYER MD ECHOCARDIOGRAM REPORT ECHO CHARGES 5 ECHO LIMITED Date: 07/23/18 CLINICAL DIAGNOSIS: TROP ECHOCARDIOGRAPHIC MEASUREMENTS (adult normal given) AC root (d.<3.7cm) 0 cm LV Septum d (<1.2 cm> 0 cm Valve Excursion 0 cm LV Septum (systole) 0 cm Left Atria (s.<4.0cm> 0 cm LVPW d(<1.2cm) 0 cm RV (d.<2.3cm) 0 cm LVPW (sytole) 0 cm LV diastole(<5.6CM) 0 cm MV E-F(>70mm/sec) 0 cm LV systole 0 cm LVOT Diameter 0 cm MV exc.(>10mm) 0 cm Est.ejection fraction (50-75%) 0 % DOPPLER: LVIT cm/sec A cm/sec E 0 cm/sec LA 0 cm/sec RVSP 52.1 mmHg LVOT 0 cm/sec AOP1/2T m/s Asc. Ao 0 cm/sec RVOT 0 cm/sec RA 0 cm/sec PA 0 cm/sec AV Gradient Peak 0 mmHg AV Mean 0 mmHg AV Area 0 cm MV Gradient Peak 0 mmHg MV Mean 0 mmHg MV Area 0 cm COMMENTS: Elementary Reading Specialist: Daren ABDULLAHI Digital Camera Technician: Rick Mayer TAPE# PACS Pericardial Effusion N DATE OF SERVICE: 07/24/2018 FINDINGS: 1. Left ventricular chamber size is within normal limits. Left ventricular systolic function is normal. Overall ejection fraction estimated at 50%. 2. Left atrium, right atrium, and right ventricular chamber sizes are mildly dilated. 3. Valvular structures have normal structure and motion. 4. Doppler interrogation reveals hysj-ar-zdagvawy mitral regurgitation, moderate tricuspid regurgitation. No other valvular insufficiency or stenosis. ECHOCARDIOGRAM REPORT [id number] YAZAN ANAYA Pulmonary systolic pressure is elevated, estimated at 52 mmHg. 5. No evidence of pericardial effusion or left ventricular thrombus. TRANSINT:[id number] Voice Confirmation ID: [id number] DOCUMENT ID: [id number] VENTURA MAYER MD at 1457 CC: [id number] DICTATION DATE: 07/24/18 1156 FURNITURE REPRODUCER: 07/24/18 1245 ADM IN [place] [id number] [place] [id number]
--- NOTE | 2018-07-27 14:57 | CN ---
PATIENT NAME:YAZAN ANAYA MEDICAL RECORD: [id number] : 53 LOCATION:D.M3 D.1207 ADMIT DATE: 07/23/18 ACCOUNT: [id number] CONSULTING PHYSICIAN: VENTURA BENSON MD REFERRING PHYSICIAN: TIO GONZALES MD DATE OF CONSULTATION: 07/24/2018 CARDIOLOGY CONSULTATION DIAGNOSES: 1. Increased troponin. 2. Shortness of breath. 3. Chronic obstructive pulmonary disease. 4. Smoking history. 5. Influenza A. 6. Possible pneumonia. 7. Coronary artery disease, previous PTCA and stent. 8. Diabetes. HISTORY OF PRESENT ILLNESS: This is a gentleman, who presents with increasing shortness of breath, being treated for possible pneumonia, has positive flu A as well, who due to the shortness of breath, cardiac enzymes were drawn and they are elevated. He has had some chest discomfort in the last few weeks along with the shortness of breath. PHYSICAL EXAMINATION: GENERAL APPEARANCE: Well-nourished, well-developed, appears stated age. Level of distress, comfortable. PSYCHIATRIC: Mental status, alert, normal affect. Orientation, oriented to time, place and person. EYES: Lids and conjunctiva, noninjected. No discharge, no pallor. ENT: Lips, teeth, gums, normal dentition. Oropharynx, no cyanosis, no pallor. NECK: Carotid arteries, bilateral normal upstroke, no bruits, no thrills. JUGULAR VEINS: No jugular venous pressure or distention. CERVICAL LYMPH NODES: Nontender, nonenlarged. THYROID: Not enlarged. Nontender. No nodules. LUNGS: Respiratory effort, unlabored. CHEST: Normal curvature. No thoracic deformity. No chest wall tenderness. Percussion, resonant. Auscultation, clear. No wheezes, no rales, no rhonchi. CARDIOVASCULAR: Precordial exam, nondisplaced. No heaves or pericardial thrills. Rate and rhythm, regular. Heart sounds, normal S1, normal S2. No S3, no gallop, no rub. Systolic murmur, not heard. Diastolic murmur, not heard. EXTREMITIES: No cyanosis, no edema. Peripheral pulses, full and equal in all extremities, except as noted. No bruits appreciated. ABDOMEN: Soft, nondistended. Normal aorta. No bruit. Nontender. No masses. Liver, nontender, no hepatomegaly. Spleen, nontender, no splenomegaly. MUSCULOSKELETAL: No joint tenderness. No joint swelling. No erythema. NEUROLOGICAL: Normal gait, normal strength, normal tone. SKIN: Warm and dry. OVERALL IMPRESSION: Increased cardiac enzymes in light of shortness of breath and some chest pain. At this time, most likely he does have recurrent hemodynamically significant coronary artery disease, as well he has peripheral vascular disease and is even in the midst of getting a toe amputation. At the time of the coronary angiography, we will do a lower extremity angiography as CONSULT REPORT [id number] YAZAN ANAYA. We will hold off on this until he is stable from the standpoint of the flu A. TRANSINT:[id number] Voice Confirmation ID: [id number] DOCUMENT ID: [id number] EVNTURA BENSON MD at 1457 CC: [id number] DICTATION DATE: 07/24/18923 CLAIM PROCESSOR: 07/24/18 1009 ADM IN [facility] [address] [place] [id number]
--- NOTE | 2018-07-27 15:04 | NUR ---
Rehab Prescreening Consult recieved and the chart has been reviewed. He has [place] Medicaid which does not cover inpatient rehab. Gladis Junior RN Clinical Liaison, Rehab
[2018-07-27 16:15] VITALS: BP 115/70
--- NOTE | 2018-07-27 16:25 | NUR ---
FSBS 148 NO COVERAGE REQUIRED PER SS INSULIN. PT WANTING TO SIT UP ON EDGE OF BED I ASSISTED HIM WITH MINIMAL ASSISTANCE. PT NOW RESTING QUIETLY AND STATES HE IS FEELING GOOD OVERALL. DRSG TO [place].S[place]ANTH STILL CDI, NO ISSUES NOTED. EMPTIED VERGARA BAG OF 1200CC CLEAR YELLOW URINE. PT DENIES ANY CURRENT PAIN OR NEEDS AND IS WAITING ON LUNCH. CL IN REACH. WILL CTM.
--- NOTE | 2018-07-27 19:00 | NUR ---
BEDSIDE SHIFT REPORT GIVEN. PT RESTING QUIETLY IN BED. NO FURTHER NEEDS.
--- NOTE | 2018-07-27 19:39 | NUR ---
PT IN BED. REQUEST PAIN PILL. PT DENIES FURTHER NEEDS AT THIS TIME.
[2018-07-27 20:35] VITALS: BP 102/57
[2018-07-28 00:45] VITALS: BP 92/38
--- NOTE | 2018-07-28 05:23 | NUR ---
I have reviewed this patient and I concur with the Shift Assessment completed by the Licensed Practical Nurse today this shift.
[2018-07-28 05:44] VITALS: BP 98/58
[2018-07-28 06:44] LABS: BASOPHILS 0.7 % (0-2); EOSINOPHILS 0 % (0-7); HEMATOCRIT 40.1 % (42.0-54.0); HEMOGLOBIN 12.7 g/dL (13.5-17.5); LYMPHOCYTES 21.3 % (15-50); MCH 27.4 pg (26.0-34.0); MCHC 31.7 g/dL (31.0-37.0); MCV 86.6 fL (80.0-100.0); PLATELET COUNT 140 10x3/uL (130-400); RBC 4.63 10x6/uL (4.20-6.10); RDW 15.9 % (11.5-14.5)
[2018-07-28 07:08] LABS: CALC OSMOLALITY 275 mosm/kg (275-300); CALCIUM 8.1 mg/dL (8.5-10.1); CHLORIDE - SERUM 97 mmol/L (98-107); CREATININE - SERUM 0.8 mg/dL (0.6-1.3); GLUCOSE 107 mg/dL (74-106); POTASSIUM - SERUM 3.1 mmol/L (3.5-5.1); SODIUM 139 mmol/L (136-145); UREA NITROGEN 7 mg/dL (7-18); eGFR NON AFRICAN AMERICAN > 90 mL/min (90-120)
[2018-07-28 07:09] LABS: CARBON DIOXIDE 41.3 mmol/L (21.0-32.0)
--- NOTE | 2018-07-28 07:10 | NUR ---
LAB CALLED WITH CO2 OF 41.3. NIGHT NURSE STATED THAT PT DIDNT WEAR BIPAP AT NIGHT. WILL ATTEMPT TO GET PT ON BIPAP.
[2018-07-28 09:07] VITALS: BP 115/72
--- NOTE | 2018-07-28 11:22 | NUR ---
PT REFUSES TO WEAR BIPAP DURING DAYTIME. STATES THE NURSES DIDNT PUT THE IT ON HIM LAST NIGHT AND THAT HE ONLY WEARS IT AT NIGHT.
[2018-07-28 13:50] VITALS: BP 110/76
--- NOTE | 2018-07-28 14:15 | NUR ---
pt iv to r hand infiltrated. iv removed, tip intact. new iv sited to l forearm, 22g, patent.
[2018-07-28 17:35] VITALS: BP 110/63
--- NOTE | 2018-07-28 18:36 | NUR ---
I have reviewed this patient and I concur with the Shift Assessment completed by the Licensed Practical Nurse today this shift.
--- NOTE | 2018-07-28 19:20 | NUR ---
PT IN BED. REQUESTS A PAIN PILL WITH HIS NIGHT MEDS. DENIES FURTHER NEEDS AT THIS TIME.
[2018-07-28 19:30] VITALS: BP 92/44
[2018-07-29] VITALS: BP 93/51
--- NOTE | 2018-07-29 01:20 | NUR ---
I have reviewed this patient and I concur with the Shift Assessment completed by the Licensed Practical Nurse today this shift.
[2018-07-29 04:00] VITALS: BP 90/45
[2018-07-29 06:49] LABS: CALC OSMOLALITY 277 mosm/kg (275-300); CALCIUM 8.4 mg/dL (8.5-10.1); CHLORIDE - SERUM 98 mmol/L (98-107); CREATININE - SERUM 0.8 mg/dL (0.6-1.3); GLUCOSE 87 mg/dL (74-106); POTASSIUM - SERUM 3.4 mmol/L (3.5-5.1); SODIUM 140 mmol/L (136-145); UREA NITROGEN 12 mg/dL (7-18); eGFR NON AFRICAN AMERICAN > 90 mL/min (90-120)
[2018-07-29 06:50] LABS: CARBON DIOXIDE 42.3 mmol/L (21.0-32.0)
[2018-07-29 07:03] LABS: BASOPHILS 0.5 % (0-2); EOSINOPHILS 0 % (0-7); HEMATOCRIT 38.9 % (42.0-54.0); HEMOGLOBIN 12.2 g/dL (13.5-17.5); IMMATURE GRANULOCYTES 0.7 % (0-5); LYMPHOCYTES 30.5 % (15-50); MCH 27.4 pg (26.0-34.0); MCHC 31.4 g/dL (31.0-37.0); MCV 87.4 fL (80.0-100.0); MEAN PLATELET VOLUME 11.4 fL (7.4-10.4); NEUTROPHILS 58.3 % (40-80); PLATELET COUNT 162 10x3/uL (130-400); RBC 4.45 10x6/uL (4.20-6.10); RDW 15.9 % (11.5-14.5)
--- NOTE | 2018-07-29 07:34 | NUR ---
PT SITTING UP IN BED RESTING. DENIES PAIN AT THIS TIME. IV TO L FA SL. 6L O2 VIA HIGH FLOW NC. VERGARA NOTED IN PLACE. NORMAL SINUS ON TELE. L FOOT DRSG C/D/I. NO FURTHER COCNERNS AT THIS TIME. BED LOWERED AND LOCKED. CL IN REACH. WILL CPOC.
[2018-07-29 08:00] VITALS: BP 120/77
--- NOTE | 2018-07-29 10:10 | NUR ---
PT TOOK MEDS WITHOUT DIFFICULTY. REFUSES NICOTINE PATCH. NO FURTHER CONCERNS AT THIS TIME. BED LOWERED AND LOCKED. CL IN REACH. WILL CONTINEU TO MONITOR.
[2018-07-29 12:00] VITALS: BP 116/69
--- NOTE | 2018-07-29 13:46 | NUR ---
I have reviewed this patient and I concur with the Shift Assessment completed by the Licensed Practical Nurse today this shift.
--- NOTE | 2018-07-29 15:25 | NUR ---
PT IV PUMP CONTINUES TO SAY "PT SIDE OCCLUDED" FLUSHED PT IV TO L FA. IV PATENT. IV PUMP WORKING PROPERLY AFTER FLUSH. NO REDNESS OR EDEMA NOTED. NO FURTHER CONCERNS AT THIS TIME. BED LOWERED AND LOCKED. CL IN REACH. WILL CPOC.
[2018-07-29 16:22] VITALS: BP 104/59
--- NOTE | 2018-07-29 19:31 | NUR ---
PATIENT RESTING IN BED WITH NO S/S OF DISTRESS. PATIENT REQUESTED A PAIN PILL WITH HIS NIGHT MEDS. PATIENT DENIES OTHER NEEDS AT THIS TIME. BED IN LOWEST POSITION AND CALL LIGHT WITHIN REACH. ENCOURAGED THE PATIENT TO CALL IF SHE HE HAS NEEDS. WILL CONTINUE TO MONITOR.
[2018-07-29 19:38] VITALS: BP 95/50
[2018-07-30 00:43] VITALS: BP 99/65
[2018-07-30 04:24] VITALS: BP 101/658
[2018-07-30 07:03] LABS: HEMATOCRIT 40.8 % (42.0-54.0); HEMOGLOBIN 12.7 g/dL (13.5-17.5); MCH 26.8 pg (26.0-34.0); MCHC 31.1 g/dL (31.0-37.0); MCV 86.3 fL (80.0-100.0); MEAN PLATELET VOLUME 11.4 fL (7.4-10.4); PLATELET COUNT 188 10x3/uL (130-400); RBC 4.73 10x6/uL (4.20-6.10); RDW 15.9 % (11.5-14.5)
[2018-07-30 07:06] LABS: WBC 11.2 10x3/uL (4.8-10.8)
[2018-07-30 07:16] LABS: CALC OSMOLALITY 275 mosm/kg (275-300); CALCIUM 8.7 mg/dL (8.5-10.1); CARBON DIOXIDE 39.8 mmol/L (21.0-32.0); CHLORIDE - SERUM 98 mmol/L (98-107); CREATININE - SERUM 0.8 mg/dL (0.6-1.3); GLUCOSE 86 mg/dL (74-106); POTASSIUM - SERUM 3.5 mmol/L (3.5-5.1); SODIUM 139 mmol/L (136-145); UREA NITROGEN 9 mg/dL (7-18); eGFR NON AFRICAN AMERICAN > 90 mL/min (90-120)
[2018-07-30 09:07] VITALS: BP 108/75
[2018-07-30 09:42] LABS: ANISOCYTOSIS 1+; EOSINOPHILS 5 % (0-7); LYMPHOCYTES 19 % (15-50); MONOCYTES 5 % (2-11); NEUTROPHILS 69 % (40-80); PLATELET ESTIMATE NORMAL
[2018-07-30 12:28] VITALS: BP 105/72
--- NOTE | 2018-07-30 15:10 | NUR ---
Reviewed chart Diabetic diet-pt ate 100% of breakfast and lunch today Pt sleeping during rounds Will follow up
[2018-07-30 17:29] VITALS: BP 109/74
--- NOTE | 2018-07-30 18:28 | MORECARE ---
CASE MANAGEMENT DISCHARGE SUMMARY PATIENT: YAZAN ANAYA UNIT: [id number] ADM DATE: 07/23/18 AGE: 62 : 53 SEX: M ROOM/BED: D.1207 AUTHOR: KIMBERLEYDOC PHYSICIAN: REFERRING PHYSICIAN: TIO GONZALES MD DATE OF SERVICE: 07/30/18 Discharge Plan Patient Name: YAZAN ANAYA Facility: [facility]:[place] : 1955 Planned Disposition: Anticipated Discharge Date: Discharge Date: Expected LOS: Initial Reviewer: [email or web address] Initial Review Date: 07/25/2018 Generated: 07/30/18 7:28 pm Comments DCP- Discharge Planning Updated by [email or web address]: Pita Bennett on 07/30/18 5:[address] 181 PATIENT'S COUSIN,JASE BRAY, REQUEST TO SPEAK WITH THE SUPERVISOR PLEATING. STATES SHE HAD SPOKEN WITH PREVIOUS SUPERVISOR PLEATING REGARDING PLACEMENT / REHAB. HE LIVES ALONE. SHE DOES NOT FEEL HE CAN MANAGE AT HOME. SHE HAD SPOKEN WITH THE MD AND ASK ABOUT [facility] IN [place]. SHE STATES SHE HAS DISCUSSED IT WITH THE PATIENT AND HE AGREES. CM TO FOLLOW UP IN THE AM. DCP- Discharge Planning Updated by [email or web address]: Berenice Rodriguez on 07/26/18 3:[address] Patient Name: YAZAN ANAYA Admission Status: ER Accout number: [id number] Admission Date: 07-23-2018 : 1955 Admission Diagnosis:SHORTNESS OF BREATH Attending: TIO GONZALES Current LOS: 3 Anticipated DC Date: Planned Disposition: Primary Insurance: MEDICAID [place] Discharge Planning Comments: FRIEND OF PATIENT SPOKE TO ME ABOUT PATIENT'S LIVING SITUATION. 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 CM WILL FOLLOW AND ASSIST WITH DC PLANNING/NEEDS. I WILL CHECK WITH A NURSING FACILITY AND SEE WHAT THEY SAY ABOUT THIS. Embedded Software Engineer: Berenice Rodriguez DCP- Discharge Planning Updated by [email or web address]: Berenice Rodriguez on 07/25/18 4:[address] Patient Name: YAZAN ANAYA Admission Status: ER Accout number: [id number] Admission Date: 07-23-2018 : 1955 Admission Diagnosis: Attending: TIO GONZALES Current LOS: 2 Anticipated DC Date: Planned Disposition: Primary Insurance: MEDICAID [place] Discharge Planning Comments: CM MET WITH PATIENT ABOUT DC PLANNING/NEEDS. STATES PLANS TO DC TO HOME AND RESUME HH WITH [facility]. CM TO FOLLOW AND ASSIST NEEDED WITH DC PLANNING/NEEDS. Embedded Software Engineer: Berenice Rodriguez DCPIA - Discharge Planning Initial Assessment Updated by [email or web address]: Berenice Rodriguez on 07/25/18 5:34 pm * Is the patient Alert and Oriented? Yes * PCP SING * [facility] * Preadmission Environment Home Alone * ADLs Independent * Equipment CPAP Glucometer Nebulizer Oxygen Walker Wheelchair * List name and contact numbers for known caregivers / representatives who currently or will assist patient after discharge: GELA LAGUNA, * Verbal permission to speak to the caregivers and representatives has been obtained from the patient. Yes * Community resources currently utilized Home Health * Please name any agencies selected above. [facility]IENT. * Has this patient been hospitalized within the prior 30 days at any hospital? No Last DP export: 07/26/18 3:14 p Patient Name: YAZAN ANAYA Page [id number] at 1828 All edits/amendments must be made on the electronic document DICTATION DATE: 07/30/181827 OILER BANDER: JUSTIN 07/30/181827 RPT#: [id number] DC DATE: STATUS: ADM IN [facility] [address] [place] [address] END OF REPORT
--- NOTE | 2018-07-30 18:49 | NUR ---
PT IN BED SKIN W/D TO TOUCH, COLOR PASCAL, RESP. REGULAR AND EVEN AT 20. O2 ON AT 5 VERGARA PATENT AND DRAINING YELLOW URINE. DENIES C/O PAIN OR DISCOMFORT WHEN ASKED.
--- NOTE | 2018-07-30 19:47 | NUR ---
PATIENT RESTING IN BED WITH NO S/S OF DISTRESS. BROUGHT PATIENT ICE PER HIS REQUEST. PATIENT DENIES OTHER NEEDS AT THIS TIME. BED IN LOWEST POSITION AND CALL LIGHT WITHIN REACH. ENCOURAGED THE PATIENT TO CALL IF HE HAS NEEDS. WILL CONTINUE TO MONITOR.
[2018-07-30 20:00] VITALS: BP 107/71
[2018-07-31] VITALS: BP 92/63
[2018-07-31 04:00] VITALS: BP 98/47
--- NOTE | 2018-07-31 07:31 | NUR ---
PT RESTING IN BED. IV ABX TO LEFT FA FINISHED INFUSING AND IV SLOCKED. PT DENIES NEEDS AT THIS TIME. WCTM.
[2018-07-31 08:44] LABS: BASOPHILS 0.1 % (0-2); EOSINOPHILS 0 % (0-7); HEMATOCRIT 41.4 % (42.0-54.0); HEMOGLOBIN 13.2 g/dL (13.5-17.5); IMMATURE GRANULOCYTES 0.7 % (0-5); LYMPHOCYTES 19.7 % (15-50); MCH 27.7 pg (26.0-34.0); MCHC 31.9 g/dL (31.0-37.0); MCV 86.8 fL (80.0-100.0); MEAN PLATELET VOLUME 10.3 fL (7.4-10.4); MONOCYTES 6.9 % (2-11); NEUTROPHILS 72.6 % (40-80); PLATELET COUNT 185 10x3/uL (130-400); RBC 4.77 10x6/uL (4.20-6.10); RDW 15.9 % (11.5-14.5); WBC 10.2 10x3/uL (4.8-10.8)
[2018-07-31 08:57] LABS: CALC OSMOLALITY 274 mosm/kg (275-300); CARBON DIOXIDE 39.5 mmol/L (21.0-32.0); CHLORIDE - SERUM 98 mmol/L (98-107); GLUCOSE 91 mg/dL (74-106); POTASSIUM - SERUM 3.7 mmol/L (3.5-5.1); SODIUM 138 mmol/L (136-145); UREA NITROGEN 10 mg/dL (7-18); eGFR NON AFRICAN AMERICAN 80 mL/min (90-120)
[2018-07-31 09:12] VITALS: BP 97/61
--- NOTE | 2018-07-31 09:34 | NUR ---
PT AM MEDS ADMINSITERED. PT REFUSED NICOTINE PATCH. PT DENIES NEEDS. WCTM.
--- NOTE | 2018-07-31 09:45 | MORECARE ---
CASE MANAGEMENT DISCHARGE SUMMARY PATIENT: YAZAN ANAYA UNIT: [id number] ADM DATE: 07/23/18 AGE: 62 : 54 SEX: M ROOM/BED: D.1207 AUTHOR: KIMBERLEYDOC PHYSICIAN: REFERRING PHYSICIAN: TIO GONZALES MD DATE OF SERVICE: 07/31/18 Discharge Plan Patient Name: YAZAN ANAYA Facility: [facility]:[place] : 1955 Planned Disposition: Anticipated Discharge Date: Discharge Date: Expected LOS: Initial Reviewer: [id number] Initial Review Date: 07/25/2018 Generated: 07/31/18 10:44 am Comments DCP- Discharge Planning Updated by [id number]: Pita Bennett on 07/30/18 5:[address] 181 PATIENT'S COUSIN,JASE BRAY, REQUEST TO SPEAK WITH THE COMMERCIAL LINES MANAGER. STATES SHE HAD SPOKEN WITH PREVIOUS COMMERCIAL LINES MANAGER REGARDING PLACEMENT / REHAB. HE LIVES ALONE. SHE DOES NOT FEEL HE CAN MANAGE AT HOME. SHE HAD SPOKEN WITH THE MD AND ASK ABOUT [facility] IN [place]. SHE STATES SHE HAS DISCUSSED IT WITH THE PATIENT AND HE AGREES. CM TO FOLLOW UP IN THE AM. DCP- Discharge Planning Updated by [id number]: Berenice Rodriguez on 07/26/18 3:[address] Patient Name: YAZAN ANAYA Admission Status: ER Accout number: [id number] Admission Date: 07-23-2018 : 1955 Admission Diagnosis:SHORTNESS OF BREATH Attending: TIO GONZALES Current LOS: 3 Anticipated DC Date: Planned Disposition: Primary Insurance: [place] Discharge Planning Comments: FRIEND OF PATIENT SPOKE TO ME ABOUT PATIENT'S LIVING SITUATION. 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 CM WILL FOLLOW AND ASSIST WITH DC PLANNING/NEEDS. I WILL CHECK WITH A NURSING FACILITY AND SEE WHAT THEY SAY ABOUT THIS. Supervisor Sewer System: Berenice Rodriguez DCP- Discharge Planning Updated by [id number]: Berenice Rodriguez on 07/25/18 4:[address] Patient Name: YAZAN ANAYA Admission Status: ER Accout number: [id number] Admission Date: 07-23-2018 : 1955 Admission Diagnosis: Attending: TIO GONZALES Current LOS: 2 Anticipated DC Date: Planned Disposition: Primary Insurance: [place] Discharge Planning Comments: CM MET WITH PATIENT ABOUT DC PLANNING/NEEDS. STATES PLANS TO DC TO HOME AND RESUME HH WITH [facility]. CM TO FOLLOW AND ASSIST NEEDED WITH DC PLANNING/NEEDS. Supervisor Sewer System: Berenice Rodriguez DCPIA - Discharge Planning Initial Assessment Updated by [email or web address]: Berenice Rodriguez on 07/25/18 5:34 pm * Is the patient Alert and Oriented? Yes * PCP SING * [facility] * Preadmission Environment Home Alone * ADLs Independent * Equipment CPAP Glucometer Nebulizer Oxygen Walker Wheelchair * List name and contact numbers for known caregivers / representatives who currently or will assist patient after discharge: GELA LAGUNA, * Verbal permission to speak to the caregivers and representatives has been obtained from the patient. Yes * Community resources currently utilized Home Health * Please name any agencies selected above. [facility] PATIENT. * Has this patient been hospitalized within the prior 30 days at any hospital? No External Providers External Provider: [facility] Next Contact Date: Service Request Date: Service Type: Resolution: Reviewer: Comments: Last DP export: 07/30/18 5:28 p Patient Name: YAZAN ANAYA Page 27699 at 0945 All edits/amendments must be made on the electronic document DICTATION DATE: 07/31/18943 ROUGHER FOR CEMENT: JUSTIN 07/31/18943 RPT#: [id number] DC DATE: STATUS: ADM IN [facility] [address] [place] [address] END OF REPORT
--- NOTE | 2018-07-31 09:52 | MORECARE ---
CASE MANAGEMENT DISCHARGE SUMMARY PATIENT: YAZAN ANAYA UNIT: [id number] ADM DATE: 07/23/18 AGE: 62 : 54 SEX: M ROOM/BED: D.1207 AUTHOR: KIMBERLEY,DOC PHYSICIAN: REFERRING PHYSICIAN: TIO GONZALES MD DATE OF SERVICE: 07/31/18 Discharge Plan Patient Name: YAZAN ANAYA Facility: [facility]:[place] : 1955 Planned Disposition: Anticipated Discharge Date: Discharge Date: Expected LOS: Initial Reviewer: [id number] Initial Review Date: 07/25/2018 Generated: 07/31/18 10:51 am Comments DCP- Discharge Planning Updated by [id number]: Berenice Rodriguez on 07/31/18 8:[address] Patient Name: YAZAN ANAYA Admission Status: ER Accout number: [id number] Admission Date: 07-23-2018 : 1955 Admission Diagnosis:SHORTNESS OF BREATH Attending: ITO GONZALES Current LOS: 8 Anticipated DC Date: Planned Disposition: Primary Insurance: MED[place]ID [place] Discharge Planning Comments: CM SPOKE WITH MARY RAMIREZ AT [facility] IN [facility]. PHONE NUMBER [phone], FAXED INFORMATION TO HER AT [phone]. TOLD HER THE PATIENT WAS INTERESTED IN [facility]. SHE STATES SHE WILL GET BACK TO ME IN ABOUT AN HOUR. CM TO FOLLOW AND ASSIST NEEDED WITH DC PLANNING/NEEDS. Filler Picker: Berenice Rodriguez DCP- Discharge Planning Updated by [id number]: Pita Bennett on 07/30/18 5:[address] 1817 PATIENT'S COUSIN,JASE BRAY, REQUEST TO SPEAK WITH THE REGIONAL TRUCK DRIVER. STATES SHE HAD SPOKEN WITH PREVIOUS REGIONAL TRUCK DRIVER REGARDING PLACEMENT / REHAB. HE LIVES ALONE. SHE DOES NOT FEEL HE CAN MANAGE AT HOME. SHE HAD SPOKEN WITH THE MD AND ASK ABOUT [facility] IN [place]. SHE STATES SHE HAS DISCUSSED IT WITH THE PATIENT AND HE AGREES. CM TO FOLLOW UP IN THE AM. DCP- Discharge Planning Updated by [id number]: Berenice Rodriguez on 07/26/18 3:[address] Patient Name: YAZAN ANAYA Admission Status: ER Accout number: [id number] Admission Date: 07-23-2018 : 1955 Admission Diagnosis:SHORTNESS OF BREATH Attending: TIO GONZALES Current LOS: 3 Anticipated DC Date: Planned Disposition: Primary Insurance: MED[place]ID [place] Discharge Planning Comments: FRIEND OF PATIENT SPOKE TO ME ABOUT PATIENT'S LIVING SITUATION. 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 CM WILL FOLLOW AND ASSIST WITH DC PLANNING/NEEDS. I WILL CHECK WITH A NURSING FACILITY AND SEE WHAT THEY SAY ABOUT THIS. Filler Picker: Berenice Rodriguez DCP- Discharge Planning Updated by [id number]: Berenice Rodriguez on 07/25/18 4:[address] Patient Name: YAZAN ANAYA Admission Status: ER Accout number: [id number] Admission Date: 07-23-2018 : 1955 Admission Diagnosis: Attending: TIO GONZALES Current LOS: 2 Anticipated DC Date: Planned Disposition: Primary Insurance: MED[place]ID [place] Discharge Planning Comments: CM MET WITH PATIENT ABOUT DC PLANNING/NEEDS. STATES PLANS TO DC TO HOME AND RESUME HH WITH [facility]. CM TO FOLLOW AND ASSIST NEEDED WITH DC PLANNING/NEEDS. Filler Picker: Berenice Rodriguez DCPIA - Discharge Planning Initial Assessment Updated by [id number]: Berenice Rodriguez on 07/25/18 5:34 pm * Is the patient Alert and Oriented? Yes * PCP SING * [facility] * Preadmission Environment Home Alone * ADLs Independent * Equipment CPAP Glucometer Nebulizer Oxygen Walker Wheelchair * List name and contact numbers for known caregivers / representatives who currently or will assist patient after discharge: GELA LAGUNA, * Verbal permission to speak to the caregivers and representatives has been obtained from the patient. Yes * Community resources currently utilized Home Health * Please name any agencies selected above. [facility] PATIENT. * Has this patient been hospitalized within the prior 30 days at any hospital? No Last DP export: 07/31/18 8:45 a Patient Name: YAZAN ANAYA Page 05023 at 0952 All edits/amendments must be made on the electronic document DICTATION DATE: 07/31/18950 DIP TANKER: JUSTIN 07/31/18950 RPT#: [id number] DC DATE: STATUS: ADM IN [facility] [address] [place] [address] END OF REPORT
[2018-07-31 12:30] VITALS: BP 90/50
--- NOTE | 2018-07-31 14:25 | MORECARE ---
CASE MANAGEMENT DISCHARGE SUMMARY PATIENT: YAZAN ANAYA UNIT: [id number] ADM DATE: 07/23/18 AGE: 62 : 53 SEX: M ROOM/BED: D.1207 AUTHOR: KIMBERLEY,DOC PHYSICIAN: REFERRING PHYSICIAN: TIO GONZALES MD DATE OF SERVICE: 07/31/18 Discharge Plan Patient Name: YAZAN ANAYA Facility: [facility]:[place] : 1955 Planned Disposition: Anticipated Discharge Date: Discharge Date: Expected LOS: Initial Reviewer: [id number] Initial Review Date: 07/25/2018 Generated: 07/31/18 3:25 pm Comments DCP- Discharge Planning Updated by [id number]: Berenice Rodriguez on 07/31/18 8:[address] Patient Name: YAZAN ANAYA Admission Status: ER Accout number: [id number] Admission Date: 07-23-2018 : 1955 Admission Diagnosis:SHORTNESS OF BREATH Attending: TIO GONZALES Current LOS: 8 Anticipated DC Date: Planned Disposition: Primary Insurance: MEDICAID [place] Discharge Planning Comments: CM SPOKE WITH MARY RAMIREZ AT [facility] IN [facility]. PHONE NUMBER [phone], FAXED INFORMATION TO HER AT [phone]. TOLD HER THE PATIENT WAS INTERESTED IN [facility]ARE. SHE STATES SHE WILL GET BACK TO ME IN ABOUT AN HOUR. CM TO FOLLOW AND ASSIST NEEDED WITH DC PLANNING/NEEDS. Applied Behavior Specialist: Berenice Rodriguez DCP- Discharge Planning Updated by [id number]: Pita Bennett on 07/30/18 5:[address] 1817 PATIENT'S COUSIN,JASE BRAY, REQUEST TO SPEAK WITH THE INDIAN NANNY. STATES SHE HAD SPOKEN WITH PREVIOUS INDIAN NANNY REGARDING PLACEMENT / REHAB. HE LIVES ALONE. SHE DOES NOT FEEL HE CAN MANAGE AT HOME. SHE HAD SPOKEN WITH THE MD AND ASK ABOUT [facility] IN [place]. SHE STATES SHE HAS DISCUSSED IT WITH THE PATIENT AND HE AGREES. CM TO FOLLOW UP IN THE AM. DCP- Discharge Planning Updated by [id number]: Berenice Rodriguez on 07/26/18 3:[address] Patient Name: YAZAN ANAYA Admission Status: ER Accout number: [id number] Admission Date: 07-23-2018 : 1955 Admission Diagnosis:SHORTNESS OF BREATH Attending: TIO GONZALES Current LOS: 3 Anticipated DC Date: Planned Disposition: Primary Insurance: MED[place]ID [place] Discharge Planning Comments: FRIEND OF PATIENT SPOKE TO ME ABOUT PATIENT'S LIVING SITUATION. 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 CM WILL FOLLOW AND ASSIST WITH DC PLANNING/NEEDS. I WILL CHECK WITH A NURSING FACILITY AND SEE WHAT THEY SAY ABOUT THIS. Applied Behavior Specialist: Berenice Rodriguez DCP- Discharge Planning Updated by [id number]: Berenice Rodriguez on 07/25/18 4:[address] Patient Name: YAZAN ANAYA Admission Status: ER Accout number: [id number] Admission Date: 07-23-2018 : 1955 Admission Diagnosis: Attending: TIO GONZALES Current LOS: 2 Anticipated DC Date: Planned Disposition: Primary Insurance: MEDICAID [place] Discharge Planning Comments: CM MET WITH PATIENT ABOUT DC PLANNING/NEEDS. STATES PLANS TO DC TO HOME AND RESUME HH WITH [facility]. CM TO FOLLOW AND ASSIST NEEDED WITH DC PLANNING/NEEDS. Applied Behavior Specialist: Berenice Rodriguez DCPIA - Discharge Planning Initial Assessment Updated by [id number]: Berenice Rodriguez on 07/25/18 5:34 pm * Is the patient Alert and Oriented? Yes * PCP SING * [facility] * Preadmission Environment Home Alone * ADLs Independent * Equipment CPAP Glucometer Nebulizer Oxygen Walker Wheelchair * List name and contact numbers for known caregivers / representatives who currently or will assist patient after discharge: GELA LAGUNA, * Verbal permission to speak to the caregivers and representatives has been obtained from the patient. Yes * Community resources currently utilized Home Health * Please name any agencies selected above. [facility] PATIENT. * Has this patient been hospitalized within the prior 30 days at any hospital? No Last DP export: 07/31/18 8:51 a Patient Name: YAZAN ANAYA Page [id number] at 1425 All edits/amendments must be made on the electronic document DICTATION DATE: 07/31/181423 QUILLER RUNNER: JUSTIN 07/31/181423 RPT#: [id number] DC DATE: STATUS: ADM IN [facility] [address] [place] [address] END OF REPORT
--- NOTE | 2018-07-31 14:32 | MORECARE ---
CASE MANAGEMENT DISCHARGE SUMMARY PATIENT: YAZAN ANAYA UNIT: [id number] ADM DATE: 07/23/18 AGE: 62 : 53 SEX: M ROOM/BED: D.1207 AUTHOR: KIMBERLEY,DOC PHYSICIAN: REFERRING PHYSICIAN: TIO GONZALES MD DATE OF SERVICE: 07/31/18 Discharge Plan Patient Name: YAZAN ANAYA Facility: [facility]:[place] : 1955 Planned Disposition: Anticipated Discharge Date: Discharge Date: Expected LOS: Initial Reviewer: [id number] Initial Review Date: 07/25/2018 Generated: 07/31/18 3:32 pm Comments DCP- Discharge Planning Updated by [id number]: Berenice Rodriguez on 07/31/18 1:[address] Patient Name: YAZAN ANAYA Admission Status: ER Accout number: [id number] Admission Date: 07-23-2018 : 1955 Admission Diagnosis:SHORTNESS OF BREATH Attending: TIO GONZALES Current LOS: 8 Anticipated DC Date: Planned Disposition: Primary Insurance: MEDICAID [place] Discharge Planning Comments: [facility] IN [place] WILL ACCEPT THE PATIENT TO A NURSING HOME MEDICAID BED. MARY AT [facility] STATES WE NEED A NEGATIVE FLU BEFORE HE CAN BE DISCHARGED TO THEM. CM WILL FOLLOW AND ASSESS NEEDED WITH DC PLANNING/NEEDS. Behavioral Science Chair: Berenice Rodriguez DCP- Discharge Planning Updated by [id number]: Berenice Rodriguez on 07/31/18 8:[address] Patient Name: YAZAN ANAYA Admission Status: ER Accout number: [id number] Admission Date: 07-23-2018 : 1955 Admission Diagnosis:SHORTNESS OF BREATH Attending: TIO GONZALES Current LOS: 8 Anticipated DC Date: Planned Disposition: Primary Insurance: MEDICAID [place] Discharge Planning Comments: CM SPOKE WITH MARY RAMIREZ AT [facility] IN [facility]. PHONE NUMBER [phone], FAXED INFORMATION TO HER AT [phone]. TOLD HER THE PATIENT WAS INTERESTED IN NURSING HOME CARE. SHE STATES SHE WILL GET BACK TO ME IN ABOUT AN HOUR. CM TO FOLLOW AND ASSIST NEEDED WITH DC PLANNING/NEEDS. Behavioral Science Chair: Berenice Jennifer DCP- Discharge Planning Updated by [id number]: Pita Bennett on 07/30/18 5:[address] 1816 PATIENT'S COUSIN,JASE BRAY, REQUEST TO SPEAK WITH THE SIGNALMAN. STATES SHE HAD SPOKEN WITH PREVIOUS SIGNALMAN REGARDING PLACEMENT / REHAB. HE LIVES ALONE. SHE DOES NOT FEEL HE CAN MANAGE AT HOME. SHE HAD SPOKEN WITH THE MD AND ASK ABOUT [facility] IN [place]. SHE STATES SHE HAS DISCUSSED IT WITH THE PATIENT AND HE AGREES. CM TO FOLLOW UP IN THE AM. DCP- Discharge Planning Updated by [id number]: Berenice Rodriguez on 07/26/18 3:[address] Patient Name: YAZAN ANAYA Admission Status: ER Accout number: [id number] Admission Date: 07-23-2018 : 1955 Admission Diagnosis:SHORTNESS OF BREATH Attending: TIO GONZALES Current LOS: 3 Anticipated DC Date: Planned Disposition: Primary Insurance: MEDICAID [place] Discharge Planning Comments: FRIEND OF PATIENT SPOKE TO ME ABOUT PATIENT'S LIVING SITUATION. 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 CM WILL FOLLOW AND ASSIST WITH DC PLANNING/NEEDS. I WILL CHECK WITH A NURSING FACILITY AND SEE WHAT THEY SAY ABOUT THIS. Behavioral Science Chair: Berenice Rodriguez DCP- Discharge Planning Updated by [id number]: Berenice Rodriguez on 07/25/18 4:[address] Patient Name: YAZAN ANAYA Admission Status: ER Accout number: [id number] Admission Date: 07-23-2018 : 1955 Admission Diagnosis: Attending: TIO GONZALES Current LOS: 2 Anticipated DC Date: Planned Disposition: Primary Insurance: MEDICAID [place] Discharge Planning Comments: CM MET WITH PATIENT ABOUT DC PLANNING/NEEDS. STATES PLANS TO DC TO HOME AND RESUME HH WITH [facility]. CM TO FOLLOW AND ASSIST NEEDED WITH DC PLANNING/NEEDS. Behavioral Science Chair: Berenice Jennifer DCPIA - Discharge Planning Initial Assessment Updated by [id number]: Berenice Rodriguez on 07/25/18 5:34 pm * Is the patient Alert and Oriented? Yes * PCP SING * [facility] * Preadmission Environment Home Alone * ADLs Independent * Equipment CPAP Glucometer Nebulizer Oxygen Walker Wheelchair * List name and contact numbers for known caregivers / representatives who currently or will assist patient after discharge: GELA LAGUNA, * Verbal permission to speak to the caregivers and representatives has been obtained from the patient. Yes * Community resources currently utilized Home Health * Please name any agencies selected above. [facility] PATIENT. * Has this patient been hospitalized within the prior 30 days at any hospital? No Last DP export: 07/31/18 1:25 p Patient Name: YAZAN ANAYA Page [id number] at 1432 All edits/amendments must be made on the electronic document DICTATION DATE: 07/31/181431 MANAGEMENT ASSISTANT: JUSTIN 07/31/181431 RPT#: [id number] DC DATE: STATUS: ADM IN [facility] [address] [place] [address] END OF REPORT
[2018-07-31 17:18] VITALS: BP 102/62
[2018-07-31 20:00] VITALS: BP 108/71
--- NOTE | 2018-07-31 20:20 | NUR ---
SITTING UP IN BED RECEVING UD AT THIS TIME. PT NONCOMPLIANT AND ARGUING WITH RT ABOUT USING IS AND FLUTTER VALVE. PT PUTS HAND HELD NEBULIZER UP TO NURSES FACE. VERY SARCASTIC AND IRRITABLE. DISCOURAGED HIS BEHAVIOR. PT IN DROPLET ISO FOR POSITIVE FLU. ALERT AND ORIENTED X4. RESP IRREG, LABORED. O2 @ 4.5L/HFC. BBS EXP WHEEZES. NONPROD COUGH NOTED. VERGARA CATH PATENT AND DRAINING CLOUDY YELLOW URINE. DRSG NOTED TO LT FOOT IS C/D/I. LLE IS DISCOLORED BROWN. TELEMETRY SHOWS SR WITH RATE OF 75. SALINE LOCK NOTED TO LT FOREARM. SR ELEVATED X2. CL IN REACH. DENIES PAIN.
[2018-08-01] VITALS: BP 98/61
--- NOTE | 2018-08-01 02:40 | NUR ---
IV INFILTRATED IN LT FOREARM. IV RESTARTED IN LT WRIST AFTER 4 ATTEMPTS.
[2018-08-01 04:30] VITALS: BP 113/74
--- NOTE | 2018-08-01 06:05 | NUR ---
FSBS 52. PT DROWSY. GIVEN 1/2 AMP D50 AT THIS TIME PER IV.
--- NOTE | 2018-08-01 06:32 | NUR ---
FSBS RECHECKED AND IS 148.
--- NOTE | 2018-08-01 08:20 | NUR ---
PT AM MEDS ADMINISTERED. PT DENIES NEEDS. WCTM.
[2018-08-01 08:25] VITALS: BP 101/62
[2018-08-01 08:27] LABS: BASOPHILS 0.2 % (0-2); EOSINOPHILS 0 % (0-7); HEMATOCRIT 42.4 % (42.0-54.0); HEMOGLOBIN 13.3 g/dL (13.5-17.5); IMMATURE GRANULOCYTES 0.4 % (0-5); LYMPHOCYTES 16.1 % (15-50); MCH 27.4 pg (26.0-34.0); MCHC 31.4 g/dL (31.0-37.0); MCV 87.4 fL (80.0-100.0); MEAN PLATELET VOLUME 11.4 fL (7.4-10.4); MONOCYTES 6.3 % (2-11); PLATELET COUNT 169 10x3/uL (130-400); RBC 4.85 10x6/uL (4.20-6.10); RDW 16.1 % (11.5-14.5); WBC 9.6 10x3/uL (4.8-10.8)
[2018-08-01 08:36] LABS: CALC OSMOLALITY 276 mosm/kg (275-300); CALCIUM 8.8 mg/dL (8.5-10.1); CARBON DIOXIDE 34.8 mmol/L (21.0-32.0); CHLORIDE - SERUM 98 mmol/L (98-107); GLUCOSE 116 mg/dL (74-106); POTASSIUM - SERUM 3.7 mmol/L (3.5-5.1); SODIUM 138 mmol/L (136-145); UREA NITROGEN 12 mg/dL (7-18); eGFR NON AFRICAN AMERICAN 80 mL/min (90-120)
[2018-08-01 12:08] VITALS: BP 94/48
[2018-08-01 16:45] VITALS: BP 92/39
[2018-08-01 20:00] VITALS: BP 90/60
--- NOTE | 2018-08-01 20:00 | NUR ---
PT SITTING UP IN BED, NO SIGNS OF DISTRESS. ALERT AND ORIENTED. DENIES PAIN OR NEEDS AT THIS TIME. IV LEFT WRIST SL. O2 6L/NC. BED LOWEST POSITION, SRX2, CL IN REACH
[2018-08-02] VITALS: BP 90/50
[2018-08-02 04:00] VITALS: BP 98/56
[2018-08-02 05:42] LABS: BASOPHILS 0.2 % (0-2); HEMATOCRIT 39.2 % (42.0-54.0); HEMOGLOBIN 12.5 g/dL (13.5-17.5); IMMATURE GRANULOCYTES 0.5 % (0-5); LYMPHOCYTES 19.6 % (15-50); MCH 27.5 pg (26.0-34.0); MCHC 31.9 g/dL (31.0-37.0); MCV 86.3 fL (80.0-100.0); MEAN PLATELET VOLUME 11.7 fL (7.4-10.4); MONOCYTES 7.9 % (2-11); NEUTROPHILS 68.8 % (40-80); RBC 4.54 10x6/uL (4.20-6.10); RDW 16.4 % (11.5-14.5); WBC 9.5 10x3/uL (4.8-10.8)
[2018-08-02 05:43] LABS: PLATELET COUNT 214 10x3/uL (130-400)
[2018-08-02 06:04] LABS: CALCIUM 9.1 mg/dL (8.5-10.1); CARBON DIOXIDE 38.9 mmol/L (21.0-32.0); CREATININE - SERUM 1.1 mg/dL (0.6-1.3); POTASSIUM - SERUM 3.9 mmol/L (3.5-5.1)
[2018-08-02 07:50] VITALS: BP 121/72
[2018-08-02] MEDS ORDERED: AMIODARONE HCL200 MG PO (11:02)
[2018-08-02] MEDS ORDERED: LANTUS SOL100 UNIT/1 SC (11:04)
--- NOTE | 2018-08-02 11:12 | MORECARE ---
CASE MANAGEMENT DISCHARGE SUMMARY PATIENT: YAZAN ANAYA UNIT: [id number] ADM DATE: 07/23/18 AGE: 62 : 53 SEX: M ROOM/BED: D.1207 AUTHOR: KIMBERLEY,DOC PHYSICIAN: REFERRING PHYSICIAN: TIO GONZALES MD DATE OF SERVICE: 08/02/18 Discharge Plan Patient Name: YAZAN ANAYA Facility: [facility]:[place] : 1955 Planned Disposition: Anticipated Discharge Date: Discharge Date: Expected LOS: Initial Reviewer: [id number] Initial Review Date: 07/25/2018 Generated: 08/02/18 12:12 pm Comments DCP- Discharge Planning Updated by [id number]: Berenice Rodriguez on 08/02/18 10:[address] Patient Name: YAZAN ANAYA Admission Status: ER Accout number: [id number] Admission Date: 07-23-2018 : 1955 Admission Diagnosis:SHORTNESS OF BREATH Attending: TIO GONZALES Current LOS: 10 Anticipated DC Date: Planned Disposition: Primary Insurance: MED[place]ID [place] Discharge Planning Comments: CM MET WITH DR. MCFADDEN AND HE STATES PATIENT IS NO LONGER CONTAGIOUS. PATIENT MAY DC TO [facility] WHEN MEDICALLY CLEARED BY ATTENDING PHYSICIAN. PATIENT STABLE FROM PULMONARY STANDPOINT. CM FAXED DR. MCFADDEN DOCUMENTS TO [facility]. [facility] PHONE NUMBER IS [phone]. MARY IS THE AUTOCAD ELECTRICAL DESIGNER AT [facility]. CM TO FOLLOW AND ASSIST. Record Tabulating Clerk: Berenice Rodriguez DCP- Discharge Planning Updated by [email or web address]: Berenice Rodriguez on 07/31/18 1:[address] Patient Name: YAZAN ANAYA Admission Status: ER Accout number: [id number] Admission Date: 07-23-2018 : 1955 Admission Diagnosis:SHORTNESS OF BREATH Attending: TIO GONZALES Current LOS: 8 Anticipated DC Date: Planned Disposition: Primary Insurance: MEDICAID [place] Discharge Planning Comments: [facility] IN [place] WILL ACCEPT THE PATIENT TO A NURSING HOME MEDICAID BED. MARY AT [facility] STATES WE NEED A NEGATIVE FLU BEFORE HE CAN BE DISCHARGED TO THEM. CM WILL FOLLOW AND ASSESS NEEDED WITH DC PLANNING/NEEDS. Record Tabulating Clerk: Berenice Jennifer DCP- Discharge Planning Updated by [email or web address]: Berenice Rodriguez on 07/31/18 8:[address] Patient Name: YAZAN ANAYA Admission Status: ER Accout number: [id number] Admission Date: 07-23-2018 : 1955 Admission Diagnosis:SHORTNESS OF BREATH Attending: TIO GONZALES Current LOS: 8 Anticipated DC Date: Planned Disposition: Primary Insurance: MEDICAID [place] Discharge Planning Comments: CM SPOKE WITH MARY RAMIREZ AT [facility] IN [facility]. PHONE NUMBER [phone], FAXED INFORMATION TO HER AT [phone]. TOLD HER THE PATIENT WAS INTERESTED IN NURSING HOME CARE. SHE STATES SHE WILL GET BACK TO ME IN ABOUT AN HOUR. CM TO FOLLOW AND ASSIST NEEDED WITH DC PLANNING/NEEDS. Record Tabulating Clerk: Berenice Rodriguez DCP- Discharge Planning Updated by [id number]: Pita Bennett on 07/30/18 5:[address] 181 PATIENT'S COUSIN,JASE BRAY, REQUEST TO SPEAK WITH THE FIRE CREW SPECIALIST. STATES SHE HAD SPOKEN WITH PREVIOUS FIRE CREW SPECIALIST REGARDING PLACEMENT / REHAB. HE LIVES ALONE. SHE DOES NOT FEEL HE CAN MANAGE AT HOME. SHE HAD SPOKEN WITH THE MD AND ASK ABOUT [facility] IN [place]. SHE STATES SHE HAS DISCUSSED IT WITH THE PATIENT AND HE AGREES. CM TO FOLLOW UP IN THE AM. DCP- Discharge Planning Updated by [id number]: Berenice Rodriguez on 07/26/18 3:[address] Patient Name: YAZAN ANAYA Admission Status: ER Accout number: [id number] Admission Date: 07-23-2018 : 1955 Admission Diagnosis:SHORTNESS OF BREATH Attending: TIO GONZALES Current LOS: 3 Anticipated DC Date: Planned Disposition: Primary Insurance: MED[place]ID [place] Discharge Planning Comments: FRIEND OF PATIENT SPOKE TO ME ABOUT PATIENT'S LIVING SITUATION. 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 CM WILL FOLLOW AND ASSIST WITH DC PLANNING/NEEDS. I WILL CHECK WITH A NURSING FACILITY AND SEE WHAT THEY SAY ABOUT THIS. Record Tabulating Clerk: Berenice Rodriguez DCP- Discharge Planning Updated by [id number]: Berenice Rodriguez on 07/25/18 4:[address] Patient Name: YAZAN ANAYA Admission Status: ER Accout number: [id number] Admission Date: 07-23-2018 : 1955 Admission Diagnosis: Attending: TIO GONZALES Current LOS: 2 Anticipated DC Date: Planned Disposition: Primary Insurance: MED[place]ID [place] Discharge Planning Comments: CM MET WITH PATIENT ABOUT DC PLANNING/NEEDS. STATES PLANS TO DC TO HOME AND RESUME HH WITH [facility]. CM TO FOLLOW AND ASSIST NEEDED WITH DC PLANNING/NEEDS. Record Tabulating Clerk: Berenice Rodriguez DCPIA - Discharge Planning Initial Assessment Updated by [email or web address]: Berenicemukul Rodriguez on 07/25/18 5:34 pm * Is the patient Alert and Oriented? Yes * PCP SING * [facility] * Preadmission Environment Home Alone * ADLs Independent * Equipment CPAP Glucometer Nebulizer Oxygen Walker Wheelchair * List name and contact numbers for known caregivers / representatives who currently or will assist patient after discharge: GELA LAGUNA, * Verbal permission to speak to the caregivers and representatives has been obtained from the patient. Yes * Community resources currently utilized Home Health * Please name any agencies selected above. [facility] PATIENT. * Has this patient been hospitalized within the prior 30 days at any hospital? No Last DP export: 07/31/18 1:32 p Patient Name: YAZAN ANAYA Page [id number] at 1112 All edits/amendments must be made on the electronic document DICTATION DATE: 08/02/[address] JUDGE: JUSTIN 08/02/18 1112 RPT#: [id number] DC DATE: STATUS: ADM IN [facility] [address] [place] [address] END OF REPORT
--- NOTE | 2018-08-02 11:57 | MORECARE ---
CASE MANAGEMENT DISCHARGE SUMMARY PATIENT: YAZAN ANAYA UNIT: [id number] ADM DATE: 07/23/18 AGE: 62 : 54 SEX: M ROOM/BED: D.1207 AUTHOR: KIMBERLEY,DOC PHYSICIAN: REFERRING PHYSICIAN: TIO GONZALES MD DATE OF SERVICE: 08/02/18 Discharge Plan Patient Name: YAZAN ANAYA Facility: [facility]:[place] : 1955 Planned Disposition: Anticipated Discharge Date: Discharge Date: Expected LOS: Initial Reviewer: [id number] Initial Review Date: 07/25/2018 Generated: 08/02/18 12:57 pm Comments DCP- Discharge Planning Updated by [email or web address]: Berenice Rodriguez on 08/02/18 10:[address] Patient Name: YAZAN ANAYA Admission Status: ER Accout number: [id number] Admission Date: 07-23-2018 : 1955 Admission Diagnosis:SHORTNESS OF BREATH Attending: TIO GONZALES Current LOS: 10 Anticipated DC Date: Planned Disposition: Primary Insurance: MEDICAID [place] Discharge Planning Comments: CM MET WITH DR. MCFADDEN AND HE STATES PATIENT IS NO LONGER CONTAGIOUS. PATIENT MAY DC TO [facility] WHEN MEDICALLY CLEARED BY ATTENDING PHYSICIAN. PATIENT STABLE FROM PULMONARY STANDPOINT. CM FAXED DR. MCFADDEN DOCUMENTS TO [facility]. [facility] PHONE NUMBER IS [phone]. MARY IS THE SHERIFF'S SERGEANT AT [facility]. CM TO FOLLOW AND ASSIST. Peoplesoft Programmer: Berenice Rodriguez Appended by Berenice Rodriguez on 08/02/2018 11:49 CDT: PATIENT WILL NEED TO TRANSFER TO [facility] IN [place] BY AMBULANCE. DCP- Discharge Planning Updated by [id number]: Berenice Rodriguez on 07/31/18 1:[address] Patient Name: YAZAN ANAYA Admission Status: ER Accout number: [id number] Admission Date: 07-23-2018 : 1955 Admission Diagnosis:SHORTNESS OF BREATH Attending: TIO GONZALES Current LOS: 8 Anticipated DC Date: Planned Disposition: Primary Insurance: MEDICAID [place] Discharge Planning Comments: [facility] IN [place] WILL ACCEPT THE PATIENT TO A RETIREMENT MEDICAID BED. MARY AT [facility] STATES WE NEED A NEGATIVE FLU BEFORE HE CAN BE DISCHARGED TO THEM. CM WILL FOLLOW AND ASSESS NEEDED WITH DC PLANNING/NEEDS. Peoplesoft Programmer: Berenice Jennifer DCP- Discharge Planning Updated by [id number]: Berenice Rodriguez on 07/31/18 8:[address] Patient Name: YAZAN ANAYA Admission Status: ER Accout number: [id number] Admission Date: 07-23-2018 : 1955 Admission Diagnosis:SHORTNESS OF BREATH Attending: TIO GONZALES Current LOS: 8 Anticipated DC Date: Planned Disposition: Primary Insurance: MEDICAID [place] Discharge Planning Comments: CM SPOKE WITH MARY BRAXTONJOSE AT [facility] IN [facility]. PHONE NUMBER [phone], FAXED INFORMATION TO HER AT [phone]. 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 SHE STATES SHE WILL GET BACK TO ME IN ABOUT AN HOUR. CM TO FOLLOW AND ASSIST NEEDED WITH DC PLANNING/NEEDS. Peoplesoft Programmer: Berenice Rodriguez DCP- Discharge Planning Updated by [id number]: Pitamukul Bennett on 07/30/18 5:[address] 1817 PATIENT'S COUSIN,JASE BRAY, REQUEST TO SPEAK WITH THE CABLE SPOOLER. STATES SHE HAD SPOKEN WITH PREVIOUS CABLE SPOOLER REGARDING PLACEMENT / REHAB. HE LIVES ALONE. SHE DOES NOT FEEL HE CAN MANAGE AT HOME. SHE HAD SPOKEN WITH THE MD AND ASK ABOUT [facility] IN [place]. SHE STATES SHE HAS DISCUSSED IT WITH THE PATIENT AND HE AGREES. CM TO FOLLOW UP IN THE AM. DCP- Discharge Planning Updated by [id number]: Berenice Jennifer on 07/26/18 3:[address] Patient Name: YAZAN ANAYA Admission Status: ER Accout number: [id number] Admission Date: 07-23-2018 : 1955 Admission Diagnosis:SHORTNESS OF BREATH Attending: TIO GONZALES Current LOS: 3 Anticipated DC Date: Planned Disposition: Primary Insurance: MED[place]ID [place] Discharge Planning Comments: FRIEND OF PATIENT SPOKE TO ME ABOUT PATIENT'S LIVING SITUATION. 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 CM WILL FOLLOW AND ASSIST WITH DC PLANNING/NEEDS. I WILL CHECK WITH A NURSING FACILITY AND SEE WHAT THEY SAY ABOUT THIS. Peoplesoft Programmer: Berenice Rodriguez DCP- Discharge Planning Updated by [id number]: Berenice Jennifer on 07/25/18 4:[address] Patient Name: YAZAN ANAYA Admission Status: ER Accout number: [id number] Admission Date: 07-23-2018 : 1955 Admission Diagnosis: Attending: TIO GONZALES Current LOS: 2 Anticipated DC Date: Planned Disposition: Primary Insurance: MEDICAID [place] Discharge Planning Comments: CM MET WITH PATIENT ABOUT DC PLANNING/NEEDS. STATES PLANS TO DC TO HOME AND RESUME HH WITH [facility]. CM TO FOLLOW AND ASSIST NEEDED WITH DC PLANNING/NEEDS. Peoplesoft Programmer: Berenice Rodriguez DCPIA - Discharge Planning Initial Assessment Updated by [id number]: Berenicemukul Rodriguez on 07/25/18 5:34 pm * Is the patient Alert and Oriented? Yes * PCP SING * [facility] * Preadmission Environment Home Alone * ADLs Independent * Equipment CPAP Glucometer Nebulizer Oxygen Walker Wheelchair * List name and contact numbers for known caregivers / representatives who currently or will assist patient after discharge: GELA LAGUNA, * Verbal permission to speak to the caregivers and representatives has been obtained from the patient. Yes * Community resources currently utilized Home Health * Please name any agencies selected above. [facility] PATIENT. * Has this patient been hospitalized within the prior 30 days at any hospital? No Last DP export: 08/02/18 10:12 a Patient Name: YAZAN ANAYA Page 20596 at 1157 All edits/amendments must be made on the electronic document DICTATION DATE: 08/02/18 1156 MISSION MANAGER: JUSTIN 08/02/18 1156 RPT#: [id number] DC DATE: STATUS: ADM IN [facility] [address] [place] [address] END OF REPORT
--- NOTE | 2018-08-02 13:32 | NUR ---
PATIENT IN BED, SKIN W/D TO TOUCH, COLOR PINK, RESP. REGULAR AND EVEN AT 20 ON O2 AT 4 L/M NC. PATIENT EXCITED ABOUT DISCHARGE. DENIES ANY C/O PAIN WHEN ASKED. C/L WITHIN REACH AND SR'S UP X'S 2.
--- NOTE | 2018-08-02 13:54 | MORECARE ---
CASE MANAGEMENT DISCHARGE SUMMARY PATIENT: YAZAN ANAYA UNIT: [id number] ADM DATE: 07/23/18 AGE: 62 : 54 SEX: M ROOM/BED: D.1207 AUTHOR: KIMBERLEY,DOC PHYSICIAN: REFERRING PHYSICIAN: TIO GONZALES MD DATE OF SERVICE: 08/02/18 Discharge Plan Patient Name: YAZAN ANAYA Facility: [facility]:[place] : 1955 Planned Disposition: Nursing Facility [facility] Anticipated Discharge Date: 08/02/18 Discharge Date: Expected LOS: 10 Initial Reviewer: [id number] Initial Review Date: 07/25/2018 Generated: 08/02/18 2:54 pm Comments DCP- Discharge Planning Updated by [email or web address]: Berenice Rodriguez on 08/02/18 12:[address] Patient Name: YAZAN ANAYA Admission Status: ER Accout number: [id number] Admission Date: 07-23-2018 : 1955 Admission Diagnosis:SHORTNESS OF BREATH Attending: TIO GONZALES Current LOS: 10 Anticipated DC Date: Planned Disposition: Primary Insurance: MEDICAID [place] Discharge Planning Comments: CM SPOKE WITH MARY RAMIREZ AT [facility] IN [place]. 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 SHE CONFIRMED THAT THEY CAN DO HIGH FLOW O2 AT 6 LITERS, AND I LET HER KNOW HIS FAMILY WILL BRING HIS CPAP FROM HOME. PATIENT TO TRANSPORT BY AMBULANCE BECAUSE OF THE OXYGEN. NURSE CAN CALL REPORT TO [facility] AT PHONE NUMBER [phone]. PATIENT IS GOING TO BE ADMITTED THERE TO A GINNER MEDICAID BED. Insurance Auditor: Berenice Rodriguez DCP- Discharge Planning Updated by [id number]: Berenice Rodriguez on 08/02/18 10:[address] Patient Name: YAZAN ANAYA Admission Status: ER Accout number: [id number] Admission Date: 07-23-2018 : 1955 Admission Diagnosis:SHORTNESS OF BREATH Attending: TIO GONZALES Current LOS: 10 Anticipated DC Date: Planned Disposition: Primary Insurance: MEDICAID [place] Discharge Planning Comments: CM MET WITH DR. MCFADDEN AND HE STATES PATIENT IS NO LONGER CONTAGIOUS. PATIENT MAY DC TO [facility] WHEN MEDICALLY CLEARED BY ATTENDING PHYSICIAN. PATIENT STABLE FROM PULMONARY STANDPOINT. CM FAXED DR. MCFADDEN DOCUMENTS TO [facility]. [facility] PHONE NUMBER IS [phone]. MARY IS THE OFFICE MAIL CLERK AT [facility]. CM TO FOLLOW AND ASSIST. Insurance Auditor: Berenice Rodriguez Appended by Berenice Rodriguez on 08/02/2018 11:49 CDT: PATIENT WILL NEED TO TRANSFER TO [facility] IN [place] BY AMBULANCE. DCP- Discharge Planning Updated by [id number]: Berenice Rodriguez on 07/31/18 1:[address] Patient Name: YAZAN ANAYA Admission Status: ER Accout number: [id number] Admission Date: 07-23-2018 : 1955 Admission Diagnosis:SHORTNESS OF BREATH Attending: TIO GONZALES Current LOS: 8 Anticipated DC Date: Planned Disposition: Primary Insurance: MEDICAID [place] Discharge Planning Comments: [facility] IN [place] WILL ACCEPT THE PATIENT TO A CARE HOME MEDICAID BED. MARY AT [facility] STATES WE NEED A NEGATIVE FLU BEFORE HE CAN BE DISCHARGED TO THEM. CM WILL FOLLOW AND ASSESS NEEDED WITH DC PLANNING/NEEDS. Insurance Auditor: Berenice Rodriguez DCP- Discharge Planning Updated by [id number]: Berenice Rodriguez on 07/31/18 8:[address] Patient Name: YAZAN ANAYA Admission Status: ER Accout number: [id number] Admission Date: 07-23-2018 : 1955 Admission Diagnosis:SHORTNESS OF BREATH Attending: TIO GONZALES Current LOS: 8 Anticipated DC Date: Planned Disposition: Primary Insurance: MEDICAID [place] Discharge Planning Comments: CM SPOKE WITH MARY ASHLEY AT [facility] IN [facility]. PHONE NUMBER [phone], FAXED INFORMATION TO HER AT [phone]. TOLD HER THE PATIENT WAS INTERESTED IN GINNER CARE. SHE STATES SHE WILL GET BACK TO ME IN ABOUT AN HOUR. CM TO FOLLOW AND ASSIST NEEDED WITH DC PLANNING/NEEDS. Insurance Auditor: Berenice Rodriguez DCP- Discharge Planning Updated by [email or web address]: Pita Bennett on 07/30/18 5:[address] 1817 PATIENT'S COUSIN,JASE BRAY, REQUEST TO SPEAK WITH THE SUEDE CLEANER. STATES SHE HAD SPOKEN WITH PREVIOUS SUEDE CLEANER REGARDING PLACEMENT / REHAB. HE LIVES ALONE. SHE DOES NOT FEEL HE CAN MANAGE AT HOME. SHE HAD SPOKEN WITH THE MD AND ASK ABOUT [facility] IN [place]. SHE STATES SHE HAS DISCUSSED IT WITH THE PATIENT AND HE AGREES. CM TO FOLLOW UP IN THE AM. DCP- Discharge Planning Updated by [email or web address]: Berenice Jennifer on 07/26/18 3:[address] Patient Name: YAZAN ANAYA Admission Status: ER Accout number: [id number] Admission Date: 07-23-2018 : 1955 Admission Diagnosis:SHORTNESS OF BREATH Attending: TIO GONZALES Current LOS: 3 Anticipated DC Date: Planned Disposition: Primary Insurance: MEDICAID [place] Discharge Planning Comments: FRIEND OF PATIENT SPOKE TO ME ABOUT PATIENT'S LIVING SITUATION. 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 CM WILL FOLLOW AND ASSIST WITH DC PLANNING/NEEDS. I WILL CHECK WITH A NURSING FACILITY AND SEE WHAT THEY SAY ABOUT THIS. Insurance Auditor: Berenice Rodriguez DCP- Discharge Planning Updated by [id number]: Berenice Rodriguez on 07/25/18 4:[address] Patient Name: YAZAN ANAYA Admission Status: ER Accout number: [id number] Admission Date: 07-23-2018 : 1955 Admission Diagnosis: Attending: TIO GONZALES Current LOS: 2 Anticipated DC Date: Planned Disposition: Primary Insurance: MEDICAID [place] Discharge Planning Comments: CM MET WITH PATIENT ABOUT DC PLANNING/NEEDS. STATES PLANS TO DC TO HOME AND RESUME HH WITH [facility]. CM TO FOLLOW AND ASSIST NEEDED WITH DC PLANNING/NEEDS. Insurance Auditor: Berenice Rodriguez DCPIA - Discharge Planning Initial Assessment Updated by [id number]: Berenice Rodriguez on 07/25/18 5:34 pm * Is the patient Alert and Oriented? Yes * PCP SING * [facility] * Preadmission Environment Home Alone * ADLs Independent * Equipment CPAP Glucometer Nebulizer Oxygen Walker Wheelchair * List name and contact numbers for known caregivers / representatives who currently or will assist patient after discharge: GELA LAGUNA, * Verbal permission to speak to the caregivers and representatives has been obtained from the patient. Yes * Community resources currently utilized Home Health * Please name any agencies selected above. [facility] PATIENT. * Has this patient been hospitalized within the prior 30 days at any hospital? No Last DP export: 08/02/18 10:57 a Patient Name: YAZAN ANAYA Page 28201 at 1354 All edits/amendments must be made on the electronic document DICTATION DATE: 08/02/18 1353 STONE DERRICKMAN AND RIGGER: JUSTIN 08/02/18 1353 RPT#: [id number] DC DATE: STATUS: ADM IN [facility] [address] [place] [address] END OF REPORT
[2018-08-02] MEDS ORDERED: FLUTICASONE PRO16 GM NASAL (14:27)
[2018-08-02] MEDS ORDERED: MUCINEX DM ER1 EAC1 PO (14:27)
[2018-08-02] MEDS ORDERED: SINGULAIR10 MG PO (14:27)
[2018-08-02] MEDS ORDERED: TESSALON PERLE100 MG PO (14:28)
--- NOTE | 2018-08-02 15:58 | NUR ---
CALLED AND SPOKE TO ALINE AT [facility], PATIENT TO BE PICKED UP IN 30-60 MIN TO GO TO [facility]
--- NOTE | 2018-08-02 15:59 | NUR ---
I AGREE WITH THIS BLANKING MACHINE OPERATOR CHARTING/ASSESSMENT
--- NOTE | 2018-08-02 18:19 | NUR ---
PATIENT DISCHARGED VIA [facility] WITH [facility]. TELEMETRY AND IV D/C PRIOR TO LEAVING. VERGARA EMPTIED AND HAD 1200 MLS IN BAG. DISCHARGED WITH ALL BELONGINGS TO [place] VIA AMBULANCE.
--- NOTE | 2018-08-03 08:39 | MORECARE ---
CASE MANAGEMENT DISCHARGE SUMMARY PATIENT: YAZAN ANAYA UNIT: [id number] ADM DATE: 07/23/18 AGE: 62 : 53 SEX: M ROOM/BED: D.1207 AUTHOR: KIMBERLEYDOC PHYSICIAN: REFERRING PHYSICIAN: TIO GONZALES MD DATE OF SERVICE: 08/03/18 Discharge Plan Patient Name: YAZAN ANAYA Facility: [facility]:[place] : 1955 Planned Disposition: Nursing Facility [facility] Anticipated Discharge Date: 08/02/18 Discharge Date: 08/02/2018 Expected LOS: 10 Initial Reviewer: [id number] Initial Review Date: 07/25/2018 Generated: 08/03/18 9:39 am Comments DCP- Discharge Planning Updated by [id number]: Berenice Rodriguez on 08/02/18 12:[address] Patient Name: YAZAN ANAYA Admission Status: ER Accout number: [id number] Admission Date: 07-23-2018 : 1955 Admission Diagnosis:SHORTNESS OF BREATH Attending: TIO GONZALES Current LOS: 10 Anticipated DC Date: Planned Disposition: Primary Insurance: MEDICAID [place] Discharge Planning Comments: CM SPOKE WITH MARY RAMIREZ AT [facility] IN [place]. 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 SHE CONFIRMED THAT THEY CAN DO HIGH FLOW O2 AT 6 LITERS, AND I LET HER KNOW HIS FAMILY WILL BRING HIS CPAP FROM HOME. PATIENT TO TRANSPORT BY AMBULANCE BECAUSE OF THE OXYGEN. NURSE CAN CALL REPORT TO [facility] AT PHONE NUMBER [phone]. PATIENT IS GOING TO BE ADMITTED THERE TO A PROJECT DEVELOPMENT MANAGER MEDICAID BED. Desktop Analyst: Berenice Rodriguez DCP- Discharge Planning Updated by [email or web address]: Berenice Rodriguez on 08/02/18 10:[address] Patient Name: YAZAN ANAYA Admission Status: ER Accout number: [id number] Admission Date: 07-23-2018 : 1955 Admission Diagnosis:SHORTNESS OF BREATH Attending: TIO GONZALES Current LOS: 10 Anticipated DC Date: Planned Disposition: Primary Insurance: MEDICAID [place] Discharge Planning Comments: CM MET WITH DR. MCFADDEN AND HE STATES PATIENT IS NO LONGER CONTAGIOUS. PATIENT MAY DC TO [facility] WHEN MEDICALLY CLEARED BY ATTENDING PHYSICIAN. PATIENT STABLE FROM PULMONARY STANDPOINT. CM FAXED DR. MCFADDEN DOCUMENTS TO [facility]. [facility] PHONE NUMBER IS [phone]. MARY IS THE JUNIOR ACCOUNTING CLERK AT [facility]. CM TO FOLLOW AND ASSIST. Desktop Analyst: Berenice Rodriguez Appended by Berenice Rodriguez on 08/02/2018 11:49 CDT: PATIENT WILL NEED TO TRANSFER TO [facility] IN [place] BY AMBULANCE. DCP- Discharge Planning Updated by [id number]: Berenice Rodriguez on 07/31/18 1:[address] Patient Name: YAZAN ANAYA Admission Status: ER Accout number: [id number] Admission Date: 07-23-2018 : 1955 Admission Diagnosis:SHORTNESS OF BREATH Attending: TIO GONZALES Current LOS: 8 Anticipated DC Date: Planned Disposition: Primary Insurance: MEDICAID [place] Discharge Planning Comments: [facility] IN [place] WILL ACCEPT THE PATIENT TO A RESIDENTIAL MEDICAID BED. MARY AT [facility] STATES WE NEED A NEGATIVE FLU BEFORE HE CAN BE DISCHARGED TO THEM. CM WILL FOLLOW AND ASSESS NEEDED WITH DC PLANNING/NEEDS. Desktop Analyst: Berenice Rodriguez DCP- Discharge Planning Updated by [email or web address]: Berenice Rodriguez on 07/31/18 8:[address] Patient Name: YAZAN ANAYA Admission Status: ER Accout number: [id number] Admission Date: 07-23-2018 : 1955 Admission Diagnosis:SHORTNESS OF BREATH Attending: TIO GONZALES Current LOS: 8 Anticipated DC Date: Planned Disposition: Primary Insurance: MEDICAID [place] Discharge Planning Comments: CM SPOKE WITH MARY ASHLEY AT [facility] IN [facility]. PHONE NUMBER [phone], FAXED INFORMATION TO HER AT [phone]. TOLD HER THE PATIENT WAS INTERESTED IN PROJECT DEVELOPMENT MANAGER CARE. SHE STATES SHE WILL GET BACK TO ME IN ABOUT AN HOUR. CM TO FOLLOW AND ASSIST NEEDED WITH DC PLANNING/NEEDS. Desktop Analyst: Berenice Rodriguez DCP- Discharge Planning Updated by [id number]: Pita Bennett on 07/30/18 5:[address] 1817 PATIENT'S COUSIN,JASE BRAY, REQUEST TO SPEAK WITH THE CAKE MAKER. STATES SHE HAD SPOKEN WITH PREVIOUS CAKE MAKER REGARDING PLACEMENT / REHAB. HE LIVES ALONE. SHE DOES NOT FEEL HE CAN MANAGE AT HOME. SHE HAD SPOKEN WITH THE MD AND ASK ABOUT [facility] IN [place]. SHE STATES SHE HAS DISCUSSED IT WITH THE PATIENT AND HE AGREES. CM TO FOLLOW UP IN THE AM. DCP- Discharge Planning Updated by [id number]: Berenice Rodriguez on 07/26/18 3:[address] Patient Name: YAZAN ANAYA Admission Status: ER Accout number: [id number] Admission Date: 07-23-2018 : 1955 Admission Diagnosis:SHORTNESS OF BREATH Attending: TIO GONZALES Current LOS: 3 Anticipated DC Date: Planned Disposition: Primary Insurance: MEDICAID [place] Discharge Planning Comments: FRIEND OF PATIENT SPOKE TO ME ABOUT PATIENT'S LIVING SITUATION. 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 CM WILL FOLLOW AND ASSIST WITH DC PLANNING/NEEDS. I WILL CHECK WITH A NURSING FACILITY AND SEE WHAT THEY SAY ABOUT THIS. Desktop Analyst: Berenice Rodriguez DCP- Discharge Planning Updated by [id number]: Berenice Rodriguez on 07/25/18 4:[address] Patient Name: YAZAN ANAYA Admission Status: ER Accout number: [id number] Admission Date: 07-23-2018 : 1955 Admission Diagnosis: Attending: TIO GONZALES Current LOS: 2 Anticipated DC Date: Planned Disposition: Primary Insurance: MEDICAID [place] Discharge Planning Comments: CM MET WITH PATIENT ABOUT DC PLANNING/NEEDS. STATES PLANS TO DC TO HOME AND RESUME HH WITH [facility]. CM TO FOLLOW AND ASSIST NEEDED WITH DC PLANNING/NEEDS. Desktop Analyst: Berenice Rodriguez DCPIA - Discharge Planning Initial Assessment Updated by [id number]: Berenice Rodriguez on 07/25/18 5:34 pm * Is the patient Alert and Oriented? Yes * PCP SING * [facility] * Preadmission Environment Home Alone * ADLs Independent * Equipment CPAP Glucometer Nebulizer Oxygen Walker Wheelchair * List name and contact numbers for known caregivers / representatives who currently or will assist patient after discharge: GELA LAGUNA, * Verbal permission to speak to the caregivers and representatives has been obtained from the patient. Yes * Community resources currently utilized Home Health * Please name any agencies selected above. [facility] PATIENT. * Has this patient been hospitalized within the prior 30 days at any hospital? No Last DP export: 08/02/18 12:54 p Patient Name: YAZAN ANAYA Page 64868 at 0839 All edits/amendments must be made on the electronic document DICTATION DATE: 08/03/18837 ATTENDANT LODGING FACILITIES: JUSTIN 08/03/18837 RPT#: [id number] DC DATE:08/02/18 STATUS: DIS IN [facility] [address] [place] [address] END OF REPORT
== END 2018-08-02 18:21 | DRG 981 ==
LOC: D.ER 11:19 → D.M3 13:26 → D.EDHOLD 13:26 → D.M3 20:44
PROVIDERS: Family Medicine; Podiatrist Foot & Ankle Surgery; ADMIT Internal Medicine Nephrology; ATTEND Internal Medicine Nephrology
PROC: 0Y6N0ZD Detachment at Left Foot, Partial 4th Ray, Open Approach (ICD-10-PCS; 2018-07-26)
PROC: 0Y6N0ZF Detachment at Left Foot, Partial 5th Ray, Open Approach (ICD-10-PCS; 2018-07-26)
PROC: 0Y6N0ZC Detachment at Left Foot, Partial 3rd Ray, Open Approach (ICD-10-PCS; principal; 2018-07-26 13:30)
DX: J10.00 Influenza due to other identified influenza virus with unspecified type of pneumonia (principal); J96.21 Acute and chronic respiratory failure with hypoxia; I50.33 Acute on chronic diastolic (congestive) heart failure; E87.1 Hypo-osmolality and hyponatremia; N39.0 Urinary tract infection, site not specified; F17.213 Nicotine dependence, cigarettes, with withdrawal; J47.0 Bronchiectasis with acute lower respiratory infection; M86.8X7 Other osteomyelitis, ankle and foot; E11.69 Type 2 diabetes mellitus with other specified complication; I11.0 Hypertensive heart disease with heart failure; E11.51 Type 2 diabetes mellitus with diabetic peripheral angiopathy without gangrene; I25.10 Atherosclerotic heart disease of native coronary artery without angina pectoris; E11.621 Type 2 diabetes mellitus with foot ulcer; L97.529 Non-pressure chronic ulcer of other part of left foot with unspecified severity; L97.519 Non-pressure chronic ulcer of other part of right foot with unspecified severity; G47.33 Obstructive sleep apnea (adult) (pediatric); J30.9 Allergic rhinitis, unspecified; D64.9 Anemia, unspecified

== ENCOUNTER 2018-08-05 11:42 | Inpatient (IN) | payer MEDICAID ==
[~2018-08-05] VITALS: Ht 188 cm; Wt 125.2 kg
[~2018-08-05 11:42] MED LIST changes: +AMIODARONE HCL200 MG PO; +LANTUS SOL100 UNIT/1 SC
--- NOTE | 2018-08-05 12:20 | NUR ---
PATIENT AWAKE AND ALERT, GIVEN WARM BLANKETS FOR COMFORT. UPDATED ON PLAN OF CARE AND DELAYS IN CARE. CALL LIGHT WIHTIN REACH. NO NEEDS NOTED WILL CONTINUE TO MONITOR.
[2018-08-05 12:48] LABS: BASOPHILS 0.2 % (0-2); EOSINOPHILS 1.8 % (0-7); HEMOGLOBIN 12.5 g/dL (13.5-17.5); IMMATURE GRANULOCYTES 0.8 % (0-5); LYMPHOCYTES 15.9 % (15-50); MCH 27.7 pg (26.0-34.0); MCHC 32.1 g/dL (31.0-37.0); MCV 86.3 fL (80.0-100.0); MEAN PLATELET VOLUME 11.3 fL (7.4-10.4); MONOCYTES 7.8 % (2-11); NEUTROPHILS 73.5 % (40-80); PLATELET COUNT 224 10x3/uL (130-400); RBC 4.52 10x6/uL (4.20-6.10); WBC 12.6 10x3/uL (4.8-10.8)
[2018-08-05 12:59] LABS: ALBUMIN 2.8 g/dL (3.4-5.0); ANION GAP 8.7 mmol/L (8-16); BILIRUBIN - TOTAL 1.6 mg/dL (0.2-1.3); C-REACTIVE PROTEIN 6.1 mg/dL (0.0-0.9); CARBON DIOXIDE 34.3 mmol/L (21.0-32.0); CREATININE - SERUM 1.1 mg/dL (0.6-1.3)
--- NOTE | 2018-08-05 13:30 | NUR ---
PATIENT AWAKE AND ALERT, WATCHING TELEVISION. NO NEEDS NOTED. UPDATED ON PLAN OF CARE AND DELAYS IN CARE. WILL CONTINUE TO MONITOR.
[2018-08-05 13:55] LABS: ERYTHROCYTE SEDIMENTATION RATE 55 mm/hr (0-20)
--- NOTE | 2018-08-05 14:30 | NUR ---
PATIENT'S BLANKETS ADJUSTED FOR HIS COMFORT. UPDATED ON PLAN OF CARE AND DELAYS IN CARE. WILL CONTINUE TO MONITOR.
[2018-08-05 14:49] VITALS: BP 156/66
[2018-08-05 15:58] VITALS: BP 162/85; BMI 35.5
--- NOTE | 2018-08-05 18:15 | MORECARE ---
CASE MANAGEMENT DISCHARGE SUMMARY PATIENT: YAZAN ANAYA UNIT: [id number] ADM DATE: 08/05/18 AGE: 62 : 54 SEX: M ROOM/BED: D.2217 AUTHOR: SB CHU PHYSICIAN: REFERRING PHYSICIAN: BRIAN NICHOLAS DPM DATE OF SERVICE: 08/05/18 Discharge Plan Patient Name: YAZAN ANAYA Facility: [facility]:[place] : 1955 Planned Disposition: Anticipated Discharge Date: Discharge Date: Expected LOS: Initial Reviewer: [email or web address] Initial Review Date: 08/05/2018 Generated: 08/05/18 7:15 pm Patient Name: YAZAN ANAYA Page 69578 at 1815 All edits/amendments must be made on the electronic document DICTATION DATE: 08/05/181814 DIRECTOR OF ACCOUNTS RECEIVABLE: JUSTIN 08/05/181814 RPT#: [id number] DC DATE: STATUS: ADM IN [facility] [address] [place] [address] END OF REPORT
--- NOTE | 2018-08-05 18:42 | NUR ---
PT LYING IN BED ASLEEP. NO SIGNS OF DISTRESS NOTED
--- NOTE | 2018-08-05 19:15 | NUR ---
RECEIVED CARE FROM DAY NURSE. LYING IN BED WITH EYES CLOSED. RESP EVEN AND UNLABORED. CALL LIGHT AT SIDE. IV SL TO LEFT AC.
[2018-08-05 20:00] VITALS: BP 101/56
[2018-08-06] VITALS (7 sets, daily range): BP systolic 100–181; BP diastolic 60–93; Ht 188 cm; Wt 125.2 kg
[2018-08-06 06:11] LABS: BASOPHILS 0.3 % (0-2); HEMATOCRIT 36.4 % (42.0-54.0); HEMOGLOBIN 11.7 g/dL (13.5-17.5); IMMATURE GRANULOCYTES 0.5 % (0-5); LYMPHOCYTES 18.8 % (15-50); MCH 27.8 pg (26.0-34.0); MCHC 32.1 g/dL (31.0-37.0); MCV 86.5 fL (80.0-100.0); MEAN PLATELET VOLUME 12.1 fL (7.4-10.4); MONOCYTES 9.8 % (2-11); NEUTROPHILS 68.6 % (40-80); PLATELET COUNT 224 10x3/uL (130-400); RBC 4.21 10x6/uL (4.20-6.10); RDW 16.5 % (11.5-14.5); WBC 11.6 10x3/uL (4.8-10.8)
[2018-08-06 06:54] LABS: CALC OSMOLALITY 286 mosm/kg (275-300); CALCIUM 8.2 mg/dL (8.5-10.1); CARBON DIOXIDE 32.2 mmol/L (21.0-32.0); CHLORIDE - SERUM 98 mmol/L (98-107); CREATININE - SERUM 0.9 mg/dL (0.6-1.3); GLUCOSE 278 mg/dL (74-106); SODIUM 138 mmol/L (136-145); UREA NITROGEN 16 mg/dL (7-18); eGFR NON AFRICAN AMERICAN > 90 mL/min (90-120)
--- NOTE | 2018-08-06 07:50 | NUR ---
PT SITTING UP IN BED. NO ACUTE DISTRESS. WATCHING TV. O2 @ 4L NC IN PLACE. REPORTS PAIN 6/10 AT THIS TIME. SALINE LOC TO LEFT FOREARM, SITE WITHOUT REDNESS OR EDEMA. INCISION TO LEFT FOOT NOTED, DEHISCENCE NO DRAINAGE NOTED. F/C PATENT AND DRAINING. DENIES FURTHER NEEDS AT THIS TIME. CL WITHIN REACH. ENCOURAGED TO CALL WITH NEEDS. CONTINUE POC
[2018-08-06 16:48] LABS: APPEARANCE HAZY (CLEAR); BILIRUBIN NEGATIVE (NEGATIVE); COLOR YELLOW (YELLOW); GLUCOSE NEGATIVE (NEGATIVE); KETONE NEGATIVE (NEGATIVE); NITRITE NEGATIVE (NEGATIVE); PROTEIN 1+ mg/dL (NEGATIVE); SPECIFIC GRAVITY 1.015 (1.005-1.020)
[2018-08-06 16:51] LABS: BACTERIA FEW /hpf (NONE SEEN); RED CELLS - URINE 0-5 /hpf (0-5); WHITE CELLS - URINE 25-50 /hpf (0-5); YEAST >1+ WITH HYPHAE /hpf (NONE SEEN)
--- NOTE | 2018-08-06 20:40 | NUR ---
PT RESTING IN BED. ALERT AND ORIENTED. NO SIGNS OF DISTRESS. BREATHING EVEN AND UNLABORED. PT STATES NO PROBLEMS AT THIS TIME. IV SITE LT FA DRESSING CLEAN DRY AND INTACT. NO SIGNS OF INFECTION. SKIN CLEAN DRY AND INTACT. BOWEL SOUNDS ACTIVE. VERGARA IN PLACE. NO9 SIGNS OF INFECTION. CLEAN DRY AND INTACT. NO LOWER LEG SWELLING PRESENT. LT FOOT DRESSING CLEAN DRY AND INTACT. WILL CONTINUE PLAN OF CARE. CALL LIGHT IN REACH. BED LOWERED AND LOCKED. BED RAILS UP X2.
--- NOTE | 2018-08-06 21:00 | NUR ---
FSBS 233 8 UNITS GIVEN PER SS.
[2018-08-07 01:16] VITALS: BP 154/74
[2018-08-07 05:12] VITALS: BP 124/61
--- NOTE | 2018-08-07 07:01 | NUR ---
FSBS 166 4 UNITS INSULIN GIVEN PER SS
[2018-08-07 07:08] LABS: CALCIUM 8.6 mg/dL (8.5-10.1); CHLORIDE - SERUM 100 mmol/L (98-107); CREATININE - SERUM 0.9 mg/dL (0.6-1.3); SODIUM 138 mmol/L (136-145); eGFR NON AFRICAN AMERICAN > 90 mL/min (90-120)
[2018-08-07 07:10] LABS: CALC OSMOLALITY 277 mosm/kg (275-300); GLUCOSE 159 mg/dL (74-106); UREA NITROGEN 11 mg/dL (7-18)
[2018-08-07 07:49] LABS: BASOPHILS 0.2 % (0-2); EOSINOPHILS 2.4 % (0-7); HEMATOCRIT 36.6 % (42.0-54.0); HEMOGLOBIN 11.5 g/dL (13.5-17.5); IMMATURE GRANULOCYTES 0.3 % (0-5); LYMPHOCYTES 13.5 % (15-50); MCH 27.3 pg (26.0-34.0); MCHC 31.4 g/dL (31.0-37.0); MCV 86.7 fL (80.0-100.0); MONOCYTES 9.6 % (2-11); PLATELET COUNT 220 10x3/uL (130-400); RBC 4.22 10x6/uL (4.20-6.10); RDW 16.1 % (11.5-14.5); WBC 10.2 10x3/uL (4.8-10.8)
[2018-08-07 09:38] VITALS: BP 110/60
[2018-08-07] MEDS ORDERED: Bactroban ointment TOPICAL (10:09)
--- NOTE | 2018-08-07 10:39 | MORECARE ---
CASE MANAGEMENT DISCHARGE SUMMARY PATIENT: YAZAN ANAYA UNIT: [id number] ADM DATE: 08/05/18 AGE: 62 : 53 SEX: M ROOM/BED: D.2217 AUTHOR: SB CHU PHYSICIAN: REFERRING PHYSICIAN: BRIAN NICHOLASM DATE OF SERVICE: 08/07/18 Discharge Plan Patient Name: YAZAN ANAYA Facility: [facility]:[place] : 1955 Planned Disposition: Nursing Facility [facility] Anticipated Discharge Date: Discharge Date: Expected LOS: Initial Reviewer: [id number] Initial Review Date: 08/05/2018 Generated: 08/07/18 11:39 am Last DP export: 08/05/18 5:15 p Patient Name: YAZAN ANAYA Page 23345 at 1039 All edits/amendments must be made on the electronic document DICTATION DATE: 08/07/18 1038 KINESIOLOGY PROFESSOR: DM 08/07/18 1038 RPT#: [id number] DC DATE: STATUS: ADM IN [facility] [address] [place] [address] END OF REPORT
--- NOTE | 2018-08-07 10:49 | MORECARE ---
CASE MANAGEMENT DISCHARGE SUMMARY PATIENT: YAZAN ANAYA UNIT: [id number] ADM DATE: 08/05/18 AGE: 62 : 54 SEX: M ROOM/BED: D.2217 AUTHOR: KIMBERLEY,DOC PHYSICIAN: REFERRING PHYSICIAN: BRIAN NICHOLAS DPM DATE OF SERVICE: 08/07/18 Discharge Plan Patient Name: YAZAN ANAYA Facility: [facility]:[place] : 1955 Planned Disposition: Nursing Facility LISA Cert Anticipated Discharge Date: Discharge Date: Expected LOS: Initial Reviewer: [id number] Initial Review Date: 08/05/2018 Generated: 08/07/18 11:49 am Comments DCP- Discharge Planning Updated by [email or web address]: Archana Chen on 08/07/18 9:[address] Patient Name: YAZAN ANAYA Admission Status: ER Accout number: [id number] Admission Date: 08-05-2018 : 1955 Admission Diagnosis: Attending: BRIAN NICHOLAS Current LOS: 2 Anticipated DC Date: Planned Disposition: Nursing Facility [facility] Cert Primary Insurance: MEDICAID [place] Discharge Planning Comments: PATIENT WILL BE DISCHARGING HOME ([facility]) 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 I SPOKE WITH ZANE GODINEZ AND MARY AT [facility] AND THEY WILL BE PICKING HIM UP AT 11:30-12:00. SPOKE WITH PATIENT AND HE IS AWARE. I WILL FAX OVER CLINICAL INFORMATION CM WILL CONTINUE TO FOLLOW AND ASSIST WITH DC PLANNING Assistant Hvac Mechanic: Archana Chen DCPIA - Discharge Planning Initial Assessment Updated by [email or web address]: Archana Chen on 08/07/18 10:41 am * Is the patient Alert and Oriented? Yes * PCP [facility] * Pharm[facility] [place] * Preadmission Environment [facility] * Facility Name [facility] * ADLs Partial Dependent * Equipment CPAP Nebulizer Oxygen * Verbal permission to speak to the caregivers and representatives has been obtained from the patient. N/A * Additional services required to return to the preadmission environment? No * Can the patient safely return to the preadmission environment? Yes * Has this patient been hospitalized within the prior 30 days at any hospital? No External Providers [facility] Next Contact Date: Service Request Date: Service Type: Resolution: Reviewer: Comments: Last DP export: 08/07/18 9:39 a Patient Name: YAZAN ANAYA Page [phone] at 1049 All edits/amendments must be made on the electronic document DICTATION DATE: 08/07/18 104 SUPPLY CHAIN COORDINATOR: JUSTIN 08/07/18 1049 RPT#: [id number] DC DATE: STATUS: [facility] [address] [place] [address] END OF REPORT
--- NOTE | 2018-08-07 12:18 | NUR ---
DISCUSSED DISCHARGE INSTRUCTIONS WITH PATIENT AND SPOUSE. PIV REMOVED, TIP INTACT. REPORT CALLED TO STEVE ANDERSON AT [facility]. DISCHARGED TO [facility] VIA WHEELCHAIR BY THEIR TRANSPORT STAFF.
--- NOTE | 2018-08-07 16:10 | MORECARE ---
CASE MANAGEMENT DISCHARGE SUMMARY PATIENT: YAZAN ANAYA UNIT: [id number] ADM DATE: 08/05/18 AGE: 62 : 54 SEX: M ROOM/BED: D.2217 AUTHOR: KIMBERLEY,DOC PHYSICIAN: REFERRING PHYSICIAN: BRIAN NICHOLAS DPM DATE OF SERVICE: 08/07/18 Discharge Plan Patient Name: YAZAN ANAYA Facility: [facility]:[place] : 1955 Planned Disposition: Nursing Facility LISA Cert Anticipated Discharge Date: Discharge Date: 08/07/2018 Expected LOS: 0 Initial Reviewer: [email or web address] Initial Review Date: 08/05/2018 Generated: 08/07/18 5:10 pm Comments DCP- Discharge Planning Updated by [email or web address]: Archana Chen on 08/07/18 9:[address] Patient Name: YAZAN ANAYA Admission Status: ER Accout number: [id number] Admission Date: 08-05-2018 : 1955 Admission Diagnosis: Attending: BRIAN NICHOLAS Current LOS: 2 Anticipated DC Date: Planned Disposition: Nursing Facility [facility] Cert Primary Insurance: MEDICAID [place] Discharge Planning Comments: PATIENT WILL BE 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 I SPOKE WITH ZANE GODINEZ AND MARY AT [facility] AND THEY WILL BE PICKING HIM UP AT 11:30-12:00. SPOKE WITH PATIENT AND HE IS AWARE. I WILL FAX OVER CLINICAL INFORMATION CM WILL CONTINUE TO FOLLOW AND ASSIST WITH DC PLANNING Biometrics Technician: Archana Chen DCPIA - Discharge Planning Initial Assessment Updated by [id number]: Archana Chen on 08/07/18 10:41 am * Is the patient Alert and Oriented? Yes * PCP [facility] * Pharmacy [place] * Preadmission Environment Care Home Group Home * Facility Name [facility] * ADLs Partial Dependent * Equipment CPAP Nebulizer Oxygen * Verbal permission to speak to the caregivers and representatives has been obtained from the patient. N/A * Additional services required to return to the preadmission environment? No * Can the patient safely return to the preadmission environment? Yes * Has this patient been hospitalized within the prior 30 days at any hospital? No Last DP export: 08/07/18 9:49 a Patient Name: YAZAN ANAYA Page [phone] at 1610 All edits/amendments must be made on the electronic document DICTATION DATE: 08/07/18 1610 SHOE REPAIRER APPRENTICE: JUSTIN 08/07/18 1610 RPT#: [id number] DC DATE:08/07/18 STATUS: DIS IN [facility] [address] [place] [address] END OF REPORT
== END 2018-08-07 12:29 | DRG 908 ==
LOC: D.ER 11:42 → D.MS 14:57 → D.EDHOLD 14:57 → D.MS 15:03
PROVIDERS: Family Medicine; Internal Medicine Nephrology; ADMIT Podiatrist Foot & Ankle Surgery; ATTEND Podiatrist Foot & Ankle Surgery
PROC: 0YQNXZZ Repair Left Foot, External Approach (ICD-10-PCS; principal; 2018-08-05)
DX: T81.31XA Disruption of external operation (surgical) wound, not elsewhere classified, initial encounter (principal); J44.1 Chronic obstructive pulmonary disease with (acute) exacerbation; I50.32 Chronic diastolic (congestive) heart failure; F17.213 Nicotine dependence, cigarettes, with withdrawal; J96.11 Chronic respiratory failure with hypoxia; I11.0 Hypertensive heart disease with heart failure; E11.9 Type 2 diabetes mellitus without complications; G47.33 Obstructive sleep apnea (adult) (pediatric); D64.9 Anemia, unspecified; E11.40 Type 2 diabetes mellitus with diabetic neuropathy, unspecified

== ENCOUNTER → 2018-08-10 14:26 | Outpatient (CLI) | payer MEDICAID ==
[2018-08-06 11:58] VITALS: BMI 35.4
[~2018-08-10 14:26] MED LIST changes: +Bactroban ointment TOPICAL
== END | disposition home or self-care (01) ==
LOC: D.OPS 14:26
PROVIDERS: ATTEND Podiatrist Foot & Ankle Surgery
DX: A49.02 Methicillin resistant Staphylococcus aureus infection, unspecified site (principal)

== ENCOUNTER 2019-03-10 11:48 | Observation (INO) | payer MEDICAID ==
[~2019-03-10] VITALS: Ht 188 cm; Wt 122.5 kg
[2019-03-10 12:14] LABS: BASOPHILS 0.3 % (0-2); EOSINOPHILS 1.4 % (0-7); HEMATOCRIT 44.8 % (42.0-54.0); HEMOGLOBIN 14.2 g/dL (13.5-17.5); IMMATURE GRANULOCYTES 0.3 % (0-5); LYMPHOCYTES 14.5 % (15-50); MCH 28.7 pg (26.0-34.0); MCHC 31.7 g/dL (31.0-37.0); MCV 90.5 fL (80.0-100.0); MEAN PLATELET VOLUME 11.5 fL (7.4-10.4); MONOCYTES 6.3 % (2-11); NEUTROPHILS 77.2 % (40-80); PLATELET COUNT 211 10x3/uL (130-400); RBC 4.95 10x6/uL (4.20-6.10); RDW 15.4 % (11.5-14.5); WBC 10.5 10x3/uL (4.8-10.8)
[2019-03-10 12:37] LABS: CALC OSMOLALITY 274 mosm/kg (275-300); CALCIUM 8.9 mg/dL (8.5-10.1); CHLORIDE - SERUM 101 mmol/L (98-107); CREATININE - SERUM 0.8 mg/dL (0.6-1.3); POTASSIUM - SERUM 3.6 mmol/L (3.5-5.1); SODIUM 139 mmol/L (136-145); UREA NITROGEN 10 mg/dL (7-18); eGFR NON AFRICAN AMERICAN > 90 mL/min (90-120)
[2019-03-10 12:39] LABS: GLUCOSE 57 mg/dL (74-106)
[2019-03-10 12:56] LABS: ALBUMIN 3.3 g/dL (3.4-5.0); ALKALINE PHOSPHATASE 125 U/L (46-116); ALT (SGPT) 10 U/L (10-68); BILIRUBIN - TOTAL 0.78 mg/dL (0.2-1.3); CREATINE KINASE 46 UL (21-232); LIPASE 28 U/L (73-393); PRO BNP 1431 pg/mL (0-125); PROTEIN - SERUM 7.7 g/dL (6.4-8.2); THYROID STIMULATING HORMONE 1.47 uIU/mL (0.36-3.74)
[2019-03-10 13:15] LABS: TROPONIN-I < 0.017 ng/mL (0.000-0.060)
[2019-03-10] MEDS ORDERED: AMIODARONE HCL200 MG PO (14:42)
[2019-03-10] MEDS ORDERED: PLAVIX75 MG PO (14:43)
[2019-03-10] MEDS ORDERED: ULTRAM50 MG PO (14:44)
[2019-03-10 14:52] VITALS: BP 125/68; BMI 34.7
--- NOTE | 2019-03-10 18:34 | NUR ---
URINE SPECIMEN COLLECTED AND TAKEN TO LAB. WILL MONITOR.
[2019-03-10 18:46] LABS: APPEARANCE CLEAR (CLEAR); BILIRUBIN NEGATIVE (NEGATIVE); COLOR DK YELLOW (YELLOW); GLUCOSE NEGATIVE (NEGATIVE); KETONE NEGATIVE (NEGATIVE); NITRITE NEGATIVE (NEGATIVE); PROTEIN TRACE mg/dL (NEGATIVE); UROBILINOGEN NORMAL (NORMAL)
[2019-03-10 18:49] LABS: BACTERIA FEW /hpf (NEGATIVE); EPITHELIAL CELLS 0-5 /hpf (0-5); RED CELLS - URINE RARE /hpf (0-5); WHITE CELLS - URINE 0-5 /hpf (NEGATIVE)
--- NOTE | 2019-03-10 19:20 | NUR ---
RECEIVED REPORT, WILL ASSUME CARE OF PT, ASKING FOR GRAMCRACKERS AND WATER-PROVIDED, DENIES ANY OTHER NEEDS, BED IS LOW, SRX2, CALL LIGHT IN REACH, WILL CONTINUE PLAN OF CARE
[2019-03-10 20:42] VITALS: BP 133/40
[2019-03-10 23:51] VITALS: BP 115/61
[2019-03-11 04:38] VITALS: BP 132/53
--- NOTE | 2019-03-11 07:00 | NUR ---
REPORT RECEIVED. HE IS ALERT ABLE TO VOICE NEEDS. NO S/S OF HYPOGLYCEMIA. RESP EVEN WITHOUT LABOR. CL IN REACH BED IN LOWEST POSITION AND LOCKED. CAREPLAN REVIEW DONE WITH SAFETY PRECAUTIONS IN PLACE
[2019-03-11 09:25] VITALS: BP 115/63
[2019-03-11 12:00] VITALS: BP 125/71
[2019-03-11 13:00] LABS: BASOPHILS 0.2 % (0-2); EOSINOPHILS 1.2 % (0-7); HEMATOCRIT 44.2 % (42.0-54.0); HEMOGLOBIN 14.1 g/dL (13.5-17.5); IMMATURE GRANULOCYTES 0.2 % (0-5); LYMPHOCYTES 21.3 % (15-50); MCH 28.7 pg (26.0-34.0); MCHC 31.9 g/dL (31.0-37.0); MCV 89.8 fL (80.0-100.0); MEAN PLATELET VOLUME 11.2 fL (7.4-10.4); MONOCYTES 6.8 % (2-11); NEUTROPHILS 70.3 % (40-80); PLATELET COUNT 196 10x3/uL (130-400); RBC 4.92 10x6/uL (4.20-6.10); RDW 15.1 % (11.5-14.5); WBC 9.6 10x3/uL (4.8-10.8)
[2019-03-11 13:21] LABS: ALBUMIN 3.1 g/dL (3.4-5.0); ALKALINE PHOSPHATASE 128 U/L (46-116); BILIRUBIN - TOTAL 0.82 mg/dL (0.2-1.3); CALCIUM 8.2 mg/dL (8.5-10.1); CARBON DIOXIDE 27.3 mmol/L (21.0-32.0); CHLORIDE - SERUM 103 mmol/L (98-107); CREATININE - SERUM 0.8 mg/dL (0.6-1.3); PROTEIN - SERUM 7.1 g/dL (6.4-8.2); SODIUM 139 mmol/L (136-145); UREA NITROGEN 11 mg/dL (7-18); eGFR NON AFRICAN AMERICAN > 90 mL/min (90-120)
[2019-03-11 13:25] LABS: ALT (SGPT) 14 U/L (10-68); CALC OSMOLALITY 276 mosm/kg (275-300); GLUCOSE 107 mg/dL (74-106); POTASSIUM - SERUM 4.5 mmol/L (3.5-5.1)
--- NOTE | 2019-03-11 14:17 | NUR ---
WHEN QUESTIONED ABOUT OXYGEN PATIENT IS ON 4L PER NC AT THIS TIME, HE STATES THAT HE IS "GOING TO STOP AT [facility] AND GET SOME". I TOLD HIM THAT HE NEEDED THE PORTABLE TO GO HOME ON (DAUGHTER STATES SHE WILL GO GET THIS FOR DISCHARGE). PATIENT IS ALSO WANTING A FLU SHOT. ORDERED.
[2019-03-11] MEDS ORDERED: LEVOFLOXACIN500 MG PO (14:21)
[2019-03-11 14:31] VITALS: Ht 188 cm; Wt 122.5 kg
--- NOTE | 2019-03-11 15:07 | NUR ---
DISCHARGE PAPERS EXPLAINED IN DETAIL. CAREGIVER HAD BROUGHT O2 FROM HOME AND IT WAS ON AT 4L/M PER N/C. HE OFFERS NO C/O. HE UNDERSTANDS ALL ORDERS AND CHANGES IN MEDS. HE WAS TRANSFERRED OUT BY W/C TO [facility]IVATE [facility] IN STABLE CONDITION.
--- NOTE | 2019-03-12 10:02 | MORECARE ---
CASE MANAGEMENT DISCHARGE SUMMARY PATIENT: YAZAN ANAYA UNIT: [id number] ADM DATE: 03/10/19 AGE: 63 : 54 SEX: M ROOM/BED: D.2111 AUTHOR: SB CHU PHYSICIAN: REFERRING PHYSICIAN: TIO GONZALES MD DATE OF SERVICE: 03/12/19 Discharge Plan Patient Name: YAZAN ANAYA [facility] [facility] 1955 Planned Disposition: Home Anticipated Discharge Date: 03/11/19 Discharge Date: 03/11/2019 Expected LOS: 1 Initial Reviewer: [id number] Initial Review Date: 03/12/2019 Generated: 03/12/19 11:02 am Patient Name: YAZAN ANAYA Page [phone] at 1002 All edits/amendments must be made on the electronic document DICTATION DATE: 03/12/19 1001 DOUGH MIXER HELPER: JUSTIN 03/12/19 1001 RPT#: [id number] DC DATE:03/11/19 STATUS: DIS IN [facility] [address] [place] [address] END OF REPORT
== END 2019-03-11 15:07 | disposition home or self-care (01) ==
LOC: D.ER 11:48 → D.M2 12:36 → OBSVTIME 12:36 → D.M2 03-11 15:07
PROVIDERS: Family Medicine; ADMIT Internal Medicine Nephrology; ATTEND Internal Medicine Nephrology
DX: E11.649 Type 2 diabetes mellitus with hypoglycemia without coma (principal); J96.21 Acute and chronic respiratory failure with hypoxia; J44.9 Chronic obstructive pulmonary disease, unspecified; I11.0 Hypertensive heart disease with heart failure; I50.32 Chronic diastolic (congestive) heart failure; I25.10 Atherosclerotic heart disease of native coronary artery without angina pectoris; G47.33 Obstructive sleep apnea (adult) (pediatric); F17.203 Nicotine dependence unspecified, with withdrawal; N39.0 Urinary tract infection, site not specified

== ENCOUNTER → 2019-06-11 13:26 | Outpatient (CLI) | payer MEDICAID ==
[2019-03-11 14:31] VITALS: BMI 34.6
[~2019-06-11 13:26] MED LIST changes: +LEVOFLOXACIN500 MG PO; +ULTRAM50 MG PO
== END | disposition home or self-care (01) ==
LOC: D.RT 12-14 13:00 → D.RAD 13:26 → D.RT 15:00
PROVIDERS: ATTEND Internal Medicine Pulmonary Disease
DX: J44.9 Chronic obstructive pulmonary disease, unspecified (principal)

== ENCOUNTER 2019-07-04 19:08 | Inpatient (IN) | payer MEDICAID ==
[~2019-07-04] VITALS: Ht 188 cm; Wt 132.9 kg
[~2019-07-04 19:08] MED LIST changes: +MONODOX100 MG PO
[2019-07-04 19:24] LABS: HEMATOCRIT 44.8 % (42.0-54.0); HEMOGLOBIN 14.8 g/dL (13.5-17.5); MCH 28.2 pg (26.0-34.0); MCV 85.3 fL (80.0-100.0); PLATELET COUNT 140 10x3/uL (130-400); RBC 5.25 10x6/uL (4.20-6.10); RDW 16.6 % (11.5-14.5); WBC 25.3 10x3/uL (4.8-10.8)
[2019-07-04 19:38] LABS: APTT 25.8 SECONDS (22.8-39.4); INR 1.17 (0.85-1.17); PROTIME 14.8 SECONDS (11.6-15.0)
[2019-07-04 19:49] LABS: LYMPHOCYTES 4 % (15-50); MONOCYTES 4 % (2-11); NEUTROPHILS 91 % (40-80); PLATELET ESTIMATE NORMAL
[2019-07-04 19:55] LABS: ALBUMIN 2.8 g/dL (3.4-5.0); ALKALINE PHOSPHATASE 100 U/L (30-120); ALT (SGPT) 15 U/L (10-68); BILIRUBIN - TOTAL 1.51 mg/dL (0.2-1.3); CALCIUM 8.7 mg/dL (8.5-10.1); CARBON DIOXIDE 31.8 mmol/L (21.0-32.0); CKMB 0.9 U/L (0.0-3.6); CREATINE KINASE 38 UL (21-232); PRO BNP 1357 pg/mL (0-125); PROTEIN - SERUM 6.5 g/dL (6.4-8.2); UREA NITROGEN 26 mg/dL (7-18); eGFR NON AFRICAN AMERICAN 80 mL/min (90-120)
[2019-07-04 20:00] LABS: GLUCOSE 108 mg/dL (74-106)
[2019-07-04 20:01] LABS: TROPONIN-I 0.016 ng/mL (0.000-0.060)
[2019-07-04 20:10] LABS: CALC OSMOLALITY 283 mosm/kg (275-300); CHLORIDE - SERUM 101 mmol/L (98-107); POTASSIUM - SERUM 4.4 mmol/L (3.5-5.1); SODIUM 139 mmol/L (136-145)
--- NOTE | 2019-07-04 20:38 | NUR ---
PT REPOSITIONED IN BED AT THIS TIME. NO ACUTE DISTRESS NOTED. WILL CONTINUE TO MONITOR.
--- NOTE | 2019-07-04 21:15 | NUR ---
ANSWERED PT'S CALL LIGHT, PT ASSISTED WITH URINAL. PT VOIDED 350 ML OF DARK YELLOW URINE. PT DENIES ANY FURTHER NEEDS AT THIS TIME. CALL LIGHT WITHIN REACH.
[2019-07-04 22:39] VITALS: BP 91/48; BMI 33.6
[2019-07-05 04:00] VITALS: BP 99/57
[2019-07-05 10:20] VITALS: BP 134/61
[2019-07-05 13:49] VITALS: BP 110/46
--- NOTE | 2019-07-05 14:32 | NUR ---
RIGHT MEDIAL FOOT 3.5CM X 4CM CHRONIC ULCER RIGHT MEDIAL GREAT TOE 2CM X 1.5CM CHRONIC ULCER LEFT TOES/AMPUTATION SITE 0.5CM X 1CM X 0.5CM OPEN ULCER RECOMMENDED CLEANSING WITH BETADINE, WRAPPING WITH 4X4S AND SECURING WITH KERLIX.
--- NOTE | 2019-07-05 15:34 | NUR ---
DRESSINGS CHANGED TO BLE WITH WOUND NURSE IN ROOM.
[2019-07-05 16:26] VITALS: BP 109/55
--- NOTE | 2019-07-05 19:10 | NUR ---
BEDSIDE REPORT RECEIVED FROM DAY SHIFT, PT CARE ASSUMED. WROTE NAME ON BOARD. PT LYING IN BED, AAOX4. DENIES ANY NEEDS AT THIS TIME. BED IN LOWEST POSITION, SR X1, CALL LIGHT WITHIN REACH. WILL CONTINUE TO MONITOR.
[2019-07-05 20:00] VITALS: BP 136/73
[2019-07-06] VITALS: BP 105/51
--- NOTE | 2019-07-06 00:21 | NUR ---
PT C/O PAIN AT PIV SITE TO RIGHT WRIST. REMOVED, CATHETER TIP INTACT, NO S/S OF BLEEDING AT SITE. PIV RESITED TO RIGHT FOREARM 20 GAUGE, X1 ATTEMPT, NO S/S OF INFILTRATION, FLUSHES WITHOUT DIFFICULTY, TOLERATED WELL. DENIES ANY OTHER NEEDS AT THIS TIME. BED IN LOWEST POSITION, SR X1, CALL LIGHT WITHIN REACH. WILL CONTINUE TO MONITOR.
[2019-07-06 04:00] VITALS: BP 104/57
[2019-07-06 05:43] LABS: BASOPHILS 0 % (0-2); EOSINOPHILS 0 % (0-7); HEMATOCRIT 39.6 % (42.0-54.0); HEMOGLOBIN 12.6 g/dL (13.5-17.5); IMMATURE GRANULOCYTES 0.4 % (0-5); LYMPHOCYTES 15.1 % (15-50); MCH 27.2 pg (26.0-34.0); MCHC 31.8 g/dL (31.0-37.0); MCV 85.5 fL (80.0-100.0); MEAN PLATELET VOLUME 11.4 fL (7.4-10.4); MONOCYTES 8.9 % (2-11); NEUTROPHILS 75.6 % (40-80); PLATELET COUNT 104 10x3/uL (130-400); RBC 4.63 10x6/uL (4.20-6.10); RDW 16.7 % (11.5-14.5); WBC 10.8 10x3/uL (4.8-10.8)
[2019-07-06 06:03] LABS: ALBUMIN 2.5 g/dL (3.4-5.0); ANION GAP 8.1 mmol/L (8-16); BILIRUBIN - TOTAL 1.34 mg/dL (0.2-1.3); CALCIUM 8.4 mg/dL (8.5-10.1); CARBON DIOXIDE 31.5 mmol/L (21.0-32.0); CREATININE - SERUM 1.1 mg/dL (0.6-1.3); POTASSIUM - SERUM 4.6 mmol/L (3.5-5.1); PROTEIN - SERUM 5.9 g/dL (6.4-8.2)
--- NOTE | 2019-07-06 07:30 | NUR ---
ASSISTED PT TO BATHROOM. BM X1. ASSISTED BACK TO BED WITH MINIMAL ASSISTANCE. DENIES NEEDS OR PAIN AT THIS TIME. RR EVEN AND UNLABORED. BED IN LOWEST POSITION. CALL LIGHT WITHIN REACH. WILL CONTINUE TO MONITOR.
[2019-07-06 09:52] VITALS: BP 112/67
[2019-07-06 12:00] VITALS: BP 147/79
[2019-07-06 12:39] VITALS: Ht 188 cm; Wt 132.9 kg
[2019-07-06 17:04] VITALS: BP 111/57
--- NOTE | 2019-07-06 19:10 | NUR ---
BEDSIDE REPORT RECEIVED FROM DAY SHIFT, PT CARE ASSUMED. WROTE NAME ON BOARD. PT REQUESTING ASSISTANCE TO BATHROOM, PROVIDED AND ASSISTED BACK TO BED. DENIES ANY OTHER NEEDS AT THIS TIME. BED IN LOWEST POSITION, SR X1, CALL LIGHT AND URINAL WITHIN REACH. WILL CONTINUE TO MONITOR.
[2019-07-06 20:00] VITALS: BP 142/73
[2019-07-06 23:03] LABS: BILIRUBIN NEGATIVE (NEGATIVE); GLUCOSE 1000 mg/dL (NEGATIVE); KETONE NEGATIVE (NEGATIVE); NITRITE NEGATIVE (NEGATIVE); UROBILINOGEN NORMAL (NORMAL)
[2019-07-07] VITALS: BP 108/55
[2019-07-07 04:00] VITALS: BP 109/56
[2019-07-07 05:18] LABS: BASOPHILS 0 % (0-2); EOSINOPHILS 0 % (0-7); HEMATOCRIT 39.5 % (42.0-54.0); HEMOGLOBIN 13.1 g/dL (13.5-17.5); IMMATURE GRANULOCYTES 0.6 % (0-5); LYMPHOCYTES 3.3 % (15-50); MCH 28.2 pg (26.0-34.0); MCHC 33.2 g/dL (31.0-37.0); MCV 84.9 fL (80.0-100.0); MEAN PLATELET VOLUME 11.3 fL (7.4-10.4); MONOCYTES 2.8 % (2-11); NEUTROPHILS 93.3 % (40-80); PLATELET COUNT 103 10x3/uL (130-400); RBC 4.65 10x6/uL (4.20-6.10); RDW 16.6 % (11.5-14.5); WBC 10.5 10x3/uL (4.8-10.8)
[2019-07-07 06:08] LABS: ALBUMIN 2.7 g/dL (3.4-5.0); ALKALINE PHOSPHATASE 119 U/L (30-120); ALT (SGPT) 23 U/L (10-68); BILIRUBIN - TOTAL 1.09 mg/dL (0.2-1.3); CALCIUM 8.9 mg/dL (8.5-10.1); CARBON DIOXIDE 27.3 mmol/L (21.0-32.0); CHLORIDE - SERUM 99 mmol/L (98-107); MAGNESIUM - SERUM 2.1 mg/dL (1.8-2.4); POTASSIUM - SERUM 4.7 mmol/L (3.5-5.1); PROTEIN - SERUM 6.7 g/dL (6.4-8.2); SODIUM 134 mmol/L (136-145); UREA NITROGEN 19 mg/dL (7-18); eGFR NON AFRICAN AMERICAN 80 mL/min (90-120)
[2019-07-07 06:12] LABS: CALC OSMOLALITY 287 mosm/kg (275-300); GLUCOSE 423 mg/dL (74-106)
[2019-07-07 08:36] VITALS: BP 132/55
[2019-07-07 12:22] VITALS: BP 145/70
--- NOTE | 2019-07-07 17:00 | NUR ---
I have reviewed this patient and I concur with the Shift Assessment completed by the Licensed Practical Nurse today this shift.
[2019-07-07 17:24] VITALS: BP 139/78
--- NOTE | 2019-07-07 19:24 | NUR ---
REPORT RECEIVED. BEDSIDE SHIFT REPORT COMPLETE. PT LAYING IN BED, RR EVEN AN UNLABORED. NO S/SX OF DISTRESS OBSERVED AT THIS TIME. PT DENIES NEEDS. CALL LIGHT IN REACH. WILL CTM.
[2019-07-07 20:00] VITALS: BP 127/55
--- NOTE | 2019-07-07 21:30 | NUR ---
APPROXIMATELY 2049 PT WAS BEING ASSISTED TO THE RESTROOM WITH BLOCK FEEDER. PT STATES HE "LOST HIS BALANCE AND MISSED" PT WAS FOUND SITTING ON THE FLOOR WITH SMALL ABRASION NOTED TO LEFT FA. NO OTHER INJURIES NOTED AT THIS TIME. NOTIFIED BIANKA BOYLE APN AT 920. NOTIFIED GEOVANI COLÓN PTS COUSIN AT 922. FALL PRECAUTIONS IN PLACE. BED ALARM ON. BP 137/68, HR88, SPO2 94% ON BIPAP, TEMP 99.4 RR 24
--- NOTE | 2019-07-07 23:35 | NUR ---
D/C PIV FROM LEFT FA. CATHETER TIP INTACT. NEW 20G PIV STARTED TO LEFT FA X1 ATTEMPT. PT TOLERATED WELL.
[2019-07-08] VITALS: BP 159/69
[2019-07-08 06:41] LABS: BASOPHILS 0 % (0-2); EOSINOPHILS 0 % (0-7); HEMATOCRIT 38.1 % (42.0-54.0); HEMOGLOBIN 12.4 g/dL (13.5-17.5); IMMATURE GRANULOCYTES 0.5 % (0-5); LYMPHOCYTES 8.4 % (15-50); MCH 27.5 pg (26.0-34.0); MCHC 32.5 g/dL (31.0-37.0); MCV 84.5 fL (80.0-100.0); MEAN PLATELET VOLUME 11.5 fL (7.4-10.4); MONOCYTES 12.9 % (2-11); NEUTROPHILS 78.2 % (40-80); PLATELET COUNT 102 10x3/uL (130-400); RBC 4.51 10x6/uL (4.20-6.10); RDW 16.7 % (11.5-14.5); WBC 12.8 10x3/uL (4.8-10.8)
[2019-07-08 07:05] LABS: ALBUMIN 2.6 g/dL (3.4-5.0); ALKALINE PHOSPHATASE 103 U/L (30-120); ALT (SGPT) 24 U/L (10-68); BILIRUBIN - TOTAL 0.98 mg/dL (0.2-1.3); CALCIUM 8.6 mg/dL (8.5-10.1); CARBON DIOXIDE 29.3 mmol/L (21.0-32.0); CHLORIDE - SERUM 98 mmol/L (98-107); CREATININE - SERUM 0.9 mg/dL (0.6-1.3); MAGNESIUM - SERUM 1.9 mg/dL (1.8-2.4); PROTEIN - SERUM 6.4 g/dL (6.4-8.2); SODIUM 133 mmol/L (136-145); UREA NITROGEN 19 mg/dL (7-18); eGFR NON AFRICAN AMERICAN 90 mL/min (90-120)
[2019-07-08 07:09] LABS: CALC OSMOLALITY 270 mosm/kg (275-300); GLUCOSE 160 mg/dL (74-106)
--- NOTE | 2019-07-08 11:26 | NUR ---
I have reviewed this patient and I concur with the Shift Assessment completed by the Licensed Practical Nurse today this shift.
[2019-07-08 12:00] VITALS: BP 116/57
--- NOTE | 2019-07-08 16:21 | NUR ---
PT SLID FROM SIDE OF BED TO FLOOR. DR. GONZALES NOTIFIED AND NO FURTHER ORDERS NEEDED. CALLED PT'S KAREN LAGUNA TO NOTIFY HER AND DID NOT RECEIVE AN ANSWER AND MAILBOX IS FULL. NURSE SALES COMPENSATION ANALYST TO DO CSTARS.
--- NOTE | 2019-07-08 16:29 | NUR ---
SPOKE WITH JASE TO NOTIFY HER PT HAD A FALL.
--- NOTE | 2019-07-08 16:30 | NUR ---
PT O2 SAT 75% ON O2 AT 4L VIA NC. PUT PT ON 6L HIGH FLOW NC AND O2 SAT AT 80%. PLACED PT ON BIPAP AND CAME UP TO 82% AND STEADILY INCREASING. CALLED JEFF Gilliland AND HE STATES PT'S O2 SAT WILL COME UP JUST LEAVE HIM ON BIPAP. I VERBALIZED UNDERSTANDING.
--- NOTE | 2019-07-08 16:31 | NUR ---
LAB CALLED AND STATED PT TESTED POSITIVE FOR FLU A.
--- NOTE | 2019-07-08 16:38 | NUR ---
NOTIFIED JASMIN YEAGER THAT PT TESTED POSITIVE FOR FLU A.
--- NOTE | 2019-07-08 16:49 | NUR ---
I have reviewed this patient and I concur with the Shift Assessment completed by the Licensed Practical Nurse today this shift.
--- NOTE | 2019-07-08 17:30 | NUR ---
PT O2 SAT NOW AT 91% ON BIPAP. WILL KEEP PT ON BIPAP. PT RESTING. CHEST RISING AND FALLING. X3 SIDE RAILS UP. WILL COTNINUE TO MONITOR.
--- NOTE | 2019-07-08 19:22 | NUR ---
PT YELLING AT ME ABOUT WHAT HE NEEDS AND HAS REMOVED BIPAP I APPLIED O2 PER PT REFUSES BIPAP BED LOW AND LOCKED CALL LIGHT HANDED TO PT
--- NOTE | 2019-07-08 19:36 | NUR ---
SPO2 DOWN IN THE 70s PT ALLOWED BIPAP TO BE PLACED AND SATS UP TO 92 QUICKLY
[2019-07-08 20:00] VITALS: BP 102/52
[2019-07-09] VITALS: BP 129/77
[2019-07-09 04:00] VITALS: BP 114/73
[2019-07-09 05:38] LABS: BASOPHILS 0.1 % (0-2); EOSINOPHILS 0 % (0-7); HEMATOCRIT 38.8 % (42.0-54.0); HEMOGLOBIN 12.6 g/dL (13.5-17.5); IMMATURE GRANULOCYTES 0.4 % (0-5); LYMPHOCYTES 11.1 % (15-50); MCH 27.5 pg (26.0-34.0); MCHC 32.5 g/dL (31.0-37.0); MCV 84.5 fL (80.0-100.0); MEAN PLATELET VOLUME 11.9 fL (7.4-10.4); MONOCYTES 15.6 % (2-11); NEUTROPHILS 72.8 % (40-80); PLATELET COUNT 109 10x3/uL (130-400); RBC 4.59 10x6/uL (4.20-6.10); RDW 16.8 % (11.5-14.5)
[2019-07-09 05:46] LABS: WBC 7.9 10x3/uL (4.8-10.8)
[2019-07-09 06:06] LABS: ALBUMIN 2.5 g/dL (3.4-5.0); ALKALINE PHOSPHATASE 100 U/L (30-120); ALT (SGPT) 26 U/L (10-68); BILIRUBIN - TOTAL 1.05 mg/dL (0.2-1.3); CALC OSMOLALITY 270 mosm/kg (275-300); CALCIUM 8.3 mg/dL (8.5-10.1); CARBON DIOXIDE 29.5 mmol/L (21.0-32.0); CHLORIDE - SERUM 98 mmol/L (98-107); CREATININE - SERUM 0.9 mg/dL (0.6-1.3); GLUCOSE 178 mg/dL (74-106); PROTEIN - SERUM 6.5 g/dL (6.4-8.2); SODIUM 132 mmol/L (136-145); UREA NITROGEN 19 mg/dL (7-18); eGFR NON AFRICAN AMERICAN 90 mL/min (90-120)
--- NOTE | 2019-07-09 07:55 | NUR ---
PT RESTING COMFORTABLY IN BED, WITH EYES CLOSED, BIPAP IN USE. RESP EVEN AND NONLABORED. LT FA IV SL. PT ON DROPLET ISOLATION FOR FLU A. BED ALARM ON, BEDSIDE RAILS X2, CALL LIGHT IN REACH, NAD NOTED,W ILL CONTINUE TO MONITOR.
--- NOTE | 2019-07-09 08:07 | NUR ---
HELPED PT TO USE URINAL. PT URINATED 400CC OF DARK URINE. PT WANTS TO TAKE BIPAP OFF TO EAT BREAKFAST. TOLD PT THAT I WOULD CHECK WITH RESP AND SEE IF PT CAN BE TAKEN OFF JUST FOR BREAKFAST. PT DENIES ANY OTHER NEEDS AT THIS TIME. CALL LIGHT IN REACH, NAD NOTED, WILL CONTINUE TO MONITOR.
[2019-07-09 09:00] VITALS: BP 118/67
--- NOTE | 2019-07-09 11:41 | NUR ---
CLEANED PT UP FROM INCONT EPISODE. PT DENIES ANY OTHER NEEDS AT THIS TIME. CALL LIGHT IN REACH, NAD NOTED, WILL CONTINUE TO MONITOR.
[2019-07-09 12:00] VITALS: BP 101/55
--- NOTE | 2019-07-09 14:21 | NUR ---
Nutrition Follow-up: Chart reviewed. Pt Flu A+ and on droplet precautions. Diet: Cardiac/Diabetic PO intake: 75-100% x all meals Last BM: 07/07/19. WT: 293# (07/06/19) Meds noted; humalog, prednisone, protonix. Labs noted: Glu 178, Na 132, Alb 2.5, Ca 8.3. Skin: reddened areas to groin and buttocks Continue current diet. RD following.
--- NOTE | 2019-07-09 16:12 | NUR ---
BLOOD SUGAR OF 242, 12UNITS OF INSULIN GIVEN PER S/S. CLEANED PT UP FROM INCONT EPISODE, STOOL DOES NOT MEET CRITIRIA TO BE TESTED FOR CDIFF.
--- NOTE | 2019-07-09 16:47 | MORECARE ---
CASE MANAGEMENT DISCHARGE SUMMARY PATIENT: YAZAN ANAYA UNIT: [id number] ADM DATE: 07/04/19 AGE: 63 : 54 SEX: M ROOM/BED: D.2137 AUTHOR: SB CHU PHYSICIAN: REFERRING PHYSICIAN: BELEN SMITH DO DATE OF SERVICE: 07/09/19 Discharge Plan Patient Name: YAZAN ANAYA [facility] [facility] 1955 Planned Disposition: Home with Home Health Anticipated Discharge Date: Discharge Date: Expected LOS: Initial Reviewer: [email or web address] Initial Review Date: 07/09/2019 Generated: 07/09/19 5:47 pm Coverage Notice Reviewer: [id number] - Yazan Oconnell Notice Issued Date-Time: 07/09/2019 16:20 Notice Type: Patient Choice Letter Notice Delivered To: Patient Relationship to Patient: Documentation Analyst Name: Delivery Method: HAND - Hand Delivered Rosanne Days: Prior Verbal Notification: Recipient Understood Notice: Yes Recipient Signature: Yes Med Rec Note Co-signed by Attending: Coverage Notice Comment: [facility] Patient Name: YAZAN ANAYA Page [phone] at 1647 All edits/amendments must be made on the electronic document DICTATION DATE: 07/09/191646 TEXTILE ARTIST: JUSTIN 07/09/191646 RPT#: [id number] DC DATE: STATUS: ADM IN [facility] [address] [place] [address] END OF REPORT
--- NOTE | 2019-07-09 16:57 | MORECARE ---
CASE MANAGEMENT DISCHARGE SUMMARY PATIENT: YAZAN ANAYA UNIT: [id number] ADM DATE: 07/04/19 AGE: 63 : 53 SEX: M ROOM/BED: D.2134 AUTHOR: KIMBERLEY,DOC PHYSICIAN: REFERRING PHYSICIAN: BELEN SMITH DO DATE OF SERVICE: 07/09/19 Discharge Plan Patient Name: YAZAN ANAYA Facility: [facility]:[place] : 1955 Planned Disposition: Home with Home Health Anticipated Discharge Date: Discharge Date: Expected LOS: Initial Reviewer: [email or web address] Initial Review Date: 07/09/2019 Generated: 07/09/19 5:57 pm Comments DCP- Discharge Planning Updated by [email or web address]: Yazan Oconnell on 07/09/19 3:[address] Patient Name: YAZAN ANAYA Admission Status: ER Accout number: [id number] Admission Date: 07-04-2019 : 1955 Admission Diagnosis: Attending: BELEN SMITH Current LOS: 5 Anticipated DC Date: Planned Disposition: Home with Home Health Primary Insurance: MEDICAID [place] PLANNED EXTERNAL PROVIDER: [facility] Discharge Planning Comments: CM MET WITH PT IN ROOM TO DISCUSS DISCHARGE PLANNING AND NEEDS. PT REPORTS LIVING AT HOME INDEPENDENTLY AND ALONE PT REPORTS HAVING ALL NEEDED MEDICAL EQUIPMENT WITH HOME AND PORTABLE OXGYEN FROM [facility]. PT HAS PERSONAL CARE WITH ALL AGES ON MONDAY, MONDAY AND MONDAY, 9-12. PT HAS [facility] AND WANTS THEM TO RESUME WHEN HE GOES HOME. CHOICE SIGNED. CM DISCUSSED AVAILABILITY OF HOME HEALTH, REHAB SERVICES AND MEDICAL EQUIPMENT. PT DENIES DISCHARGE NEEDS, REPORTS HIS COUSLIN WILL PICK HIM UP FOR DISCHARGE HOME. CM FAXED [facility] UPDATE. FOR DISCHARGE, NOTIFY [facility] AT [phone]; FAX DISCHARGE INFORMATION TO [facility] AT [phone]. Cripple Chaser: Yazan Oconnell DCPIA - Discharge Planning Initial Assessment Updated by [email or web address]: Yazan Oconnell on 07/09/19 4:47 pm * Is the patient Alert and Oriented? Yes * How many steps to enter\exit or inside your home? NONE * PCP DR. MCINTYRE * [facility] [place] * Preadmission Environment Home Alone * ADLs Partial Dependent * Partial ADLs (Assistance needed) Ambulation Bathing * Equipment CPAP Glucometer Nebulizer Oxygen Power Chair or Electric Scooter Wheelchair * Other Equipment HOME AND PORTABLE OXYGEN [facility] * List name and contact numbers for known caregivers / representatives who currently or will assist patient after discharge: GELA HENDERSON, * Verbal permission to speak to the caregivers and representatives has been obtained from the patient. N/A * Community resources currently utilized Home Health Private Duty Care * Please name any agencies selected above. [facility], MWF, 9-12 * Additional services required to return to the preadmission environment? No * Can the patient safely return to the preadmission environment? Yes * Has this patient been hospitalized within the prior 30 days at any hospital? Yes External Providers External Provider: [facility] Next Contact Date: 07/09/2019 Service Request Date: Service Type: Resolution: Reviewer: Comments: Coverage Notice Reviewer: [id number] - Yazan Oconnell Notice Issued Date-Time: 07/09/2019 16:20 Notice Type: Patient Choice Letter Notice Delivered To: Patient Relationship to Patient: Gambling Monitor Name: Delivery Method: HAND - Hand Delivered Rosanne Days: Prior Verbal Notification: Recipient Understood Notice: Yes Recipient Signature: Yes Med Rec Note Co-signed by Attending: Coverage Notice Comment: [facility] Last DP export: 07/09/19 3:47 p Patient Name: YAZAN ANAYA Page [phone] at 1657 All edits/amendments must be made on the electronic document DICTATION DATE: 07/09/191656 IDENTITY MANAGEMENT CONSULTANT: JUSTIN 07/09/191656 RPT#: [id number] DC DATE: STATUS: ADM IN [facility] [address] [place] [address] END OF REPORT
--- NOTE | 2019-07-09 19:37 | NUR ---
EVENING ROUNDS COMPLETE. PT LAYING IN BED. NO SIGNS OF DISTRESS. PT DENIES ANY PAIN OR NEEDS AT THIS TIME. CL IN REACH, BED IN LOWEST POSITION.
[2019-07-09 20:00] VITALS: BP 104/62
[2019-07-10 04:00] VITALS: BP 120/69
[2019-07-10 06:49] LABS: BASOPHILS 0.2 % (0-2); EOSINOPHILS 0 % (0-7); HEMATOCRIT 37.6 % (42.0-54.0); HEMOGLOBIN 12.3 g/dL (13.5-17.5); IMMATURE GRANULOCYTES 0.5 % (0-5); LYMPHOCYTES 16.4 % (15-50); MCH 27.7 pg (26.0-34.0); MCHC 32.7 g/dL (31.0-37.0); MCV 84.7 fL (80.0-100.0); MEAN PLATELET VOLUME 11.6 fL (7.4-10.4); MONOCYTES 9.3 % (2-11); NEUTROPHILS 73.6 % (40-80); PLATELET COUNT 107 10x3/uL (130-400); RBC 4.44 10x6/uL (4.20-6.10); RDW 16.6 % (11.5-14.5); WBC 6.5 10x3/uL (4.8-10.8)
--- NOTE | 2019-07-10 07:20 | NUR ---
PT STATES HE WANTS TO SIT UP ON SIDE OF BED TO EAT BREAKFAST THIS NURSE, BARREL FILLER, AND FINN RN NURSE MANAGE ALL HAD CONVERSATION WITH PT TO WHY HE CAN NOT FROM PREVIOUS FALLS FROM TRYING TO SIT ON SIDE OF BED. PT VERY PASSIVE WITH TEACHING AND STATING HE WILL DO WHAT HE WANTS.
[2019-07-10 07:41] LABS: ALBUMIN 2.2 g/dL (3.4-5.0); ALKALINE PHOSPHATASE 121 U/L (30-120); ALT (SGPT) 25 U/L (10-68); BILIRUBIN - TOTAL 0.62 mg/dL (0.2-1.3); CALC OSMOLALITY 279 mosm/kg (275-300); CALCIUM 8.2 mg/dL (8.5-10.1); CARBON DIOXIDE 31.7 mmol/L (21.0-32.0); CHLORIDE - SERUM 100 mmol/L (98-107); CREATININE - SERUM 0.7 mg/dL (0.6-1.3); GLUCOSE 225 mg/dL (74-106); MAGNESIUM - SERUM 2.1 mg/dL (1.8-2.4); POTASSIUM - SERUM 3.6 mmol/L (3.5-5.1); PROTEIN - SERUM 5.7 g/dL (6.4-8.2); SODIUM 136 mmol/L (136-145); UREA NITROGEN 16 mg/dL (7-18); eGFR NON AFRICAN AMERICAN > 90 mL/min (90-120)
[2019-07-10 09:00] VITALS: BP 119/97
--- NOTE | 2019-07-10 12:10 | NUR ---
OUTBOUND SALES PROFESSIONAL CALLED AND STATED DR. BENSON DID A LEFT AND RIGHT HEART CATH. THEY STATE MILD CAD AND PULMONARY EDEMA WERE FOUND AND WILL BE TREATED WITH MEDICATIONS. THEY STATE THEY WENT RIGHT FEMORAL AND CLOSED WITH 5 MALAYSIAN EXOCIL AND 7 MALAYSIAN SHEAT PULLED AND HELD PRESSURE X2 PUNCTURE SITES DRESSING C/D/I. 0.5 VERSED AND 125 FENTANYL GIVEN. O2 SATS WERE 86%-90% ON NONREBREATHER.
--- NOTE | 2019-07-10 12:20 | NUR ---
PT ARRIVED TO FLOOR VIA BED LAYING FLAT WEARING NONBREATHER MASK ON 12L OF O2 PT SWITCHED TO BIPAP AND I2 SAT IS NOW AT 95%. PT IS ALERT AND ORIENTED. RIGHT FA 20G IV NS INFUSING AT 100ML/HR. RIGHT GROIN SOFT, DRESSING C/D/I, SHOWS NO S/S OF HEMATOMA. GUARD AT BEDSIDE. BED LOW. CL IN REACH.
[2019-07-10 16:00] VITALS: BP 92/51
--- NOTE | 2019-07-10 17:48 | NUR ---
I have reviewed this patient and I concur with the Shift Assessment completed by the Licensed Practical Nurse today this shift.
--- NOTE | 2019-07-10 19:07 | NUR ---
EVENING ROUNDS COMPLETE. PT SITTING UP ON SIDE OF BED. NO SIGNS OF DISTRESS. PT DENIES ANY PAIN OR NEEDS AT THIS TIME. CL IN REACH, BED IN LOWEST POSITION. DUC ALARM ON. PT IS DISORIENTATED TO TIME.
--- NOTE | 2019-07-10 19:11 | NUR ---
EVENING ROUNDS COMPLETE. PT LAYING IN BED. NO SIGNS OF DISTRESS. AAOX4. PT DENIES ANY PAIN OR NEEDS AT THIS TIME. CL IN REACH, BED IN LOWEST POSITION.
--- NOTE | 2019-07-10 19:59 | NUR ---
OT NOTE: PT COMPLETED BED MOB TASKS WITH SBA. PT COMPLETED SUPINE TO SIT WITH MIN A. PT COMPLETED EOB SITTING WITH SBA. PT COMPLETED LB HYGIENE TASKS WITH MAX A. PT COMPLETED BUE AROM EXS AT EOB WITH SBA. [phone] THANK YOU,REKHA WILSON
[2019-07-10 20:00] VITALS: BP 95/51
[2019-07-11] VITALS: BP 145/52
[2019-07-11 04:00] VITALS: BP 107/52
[2019-07-11 10:13] VITALS: BP 90/48
--- NOTE | 2019-07-11 13:20 | MORECARE ---
CASE MANAGEMENT DISCHARGE SUMMARY PATIENT: YAZAN ANAYA UNIT: [id number] ADM DATE: 07/04/19 AGE: 63 : 53 SEX: M ROOM/BED: D.2131 AUTHOR: KIMBERLEY,DOC PHYSICIAN: REFERRING PHYSICIAN: BELEN SMITH DO DATE OF SERVICE: 07/11/19 Discharge Plan Patient Name: YAZAN ANAYA Facility: [facility]:[place] : 1955 Planned Disposition: Home with Home Health Anticipated Discharge Date: Discharge Date: Expected LOS: Initial Reviewer: [email or web address] Initial Review Date: 07/09/2019 Generated: 07/11/19 2:20 pm DCP- Discharge Planning Updated by [email or web address]: Yazan Oconnell on 07/09/19 3:[address] Patient Name: YAZAN ANAYA Admission Status: ER Accout number: [id number] Admission Date: 07-04-2019 : 1955 Admission Diagnosis: Attending: BELEN SMITH Current LOS: 5 Anticipated DC Date: Planned Disposition: Home with Home Health Primary Insurance: MEDICAID [place] PLANNED EXTERNAL PROVIDER: [facility] Discharge Planning Comments: CM MET WITH PT IN ROOM TO DISCUSS DISCHARGE PLANNING AND NEEDS. PT REPORTS LIVING AT HOME INDEPENDENTLY AND ALONE PT REPORTS HAVING ALL NEEDED MEDICAL EQUIPMENT WITH HOME AND PORTABLE OXGYEN FROM [facility]. PT HAS PERSONAL CARE WITH ALL AGES ON MONDAY, MONDAY AND MONDAY, 9-12. PT HAS [facility] AND WANTS THEM TO RESUME WHEN HE GOES HOME. CHOICE SIGNED. CM DISCUSSED AVAILABILITY OF HOME HEALTH, REHAB SERVICES AND MEDICAL EQUIPMENT. PT DENIES DISCHARGE NEEDS, REPORTS HIS COUSLIN WILL PICK HIM UP FOR DISCHARGE HOME. CM FAXED [facility] UPDATE. FOR DISCHARGE, NOTIFY [facility] AT [phone]; FAX DISCHARGE INFORMATION TO [place] AT [phone]. Fire Engine Operator: Yazan Oconnell DCPIA - Discharge Planning Initial Assessment Updated by [id number]: Yazan Oconnell on 07/09/19 4:47 pm * Is the patient Alert and Oriented? Yes * How many steps to enter\exit or inside your home? NONE * PCP DR. MCINTYRE * [facility] [place] * Preadmission Environment Home Alone * ADLs Partial Dependent * Partial ADLs (Assistance needed) Ambulation Bathing * Equipment CPAP Glucometer Nebulizer Oxygen Power Chair or Electric Scooter Wheelchair * Other Equipment HOME AND PORTABLE OXYGEN [facility] * List name and contact numbers for known caregivers / representatives who currently or will assist patient after discharge: JASE BRAY, GELA, * Verbal permission to speak to the caregivers and representatives has been obtained from the patient. N/A * Community resources currently utilized Home Health Private Duty Care * Please name any agencies selected above. [facility], MWF, 9-12 * Additional services required to return to the preadmission environment? No * Can the patient safely return to the preadmission environment? Yes * Has this patient been hospitalized within the prior 30 days at any hospital? Yes External Providers External Provider: [facility] Next Contact Date: Service Request Date: Service Type: Resolution: Reviewer: Comments: Coverage Notice Reviewer: [email or web address] - Yazan Oconnell Notice Issued Date-Time: 07/09/2019 16:20 Notice Type: Patient Choice Letter Notice Delivered To: Patient Relationship to Patient: Pyroglazer Name: Delivery Method: HAND - Hand Delivered Rosanne Days: Prior Verbal Notification: Recipient Understood Notice: Yes Recipient Signature: Yes Med Rec Note Co-signed by Attending: Coverage Notice Comment: [facility] Last DP export: 07/09/19 3:57 p Patient Name: YAZAN ANAYA Page [phone] at 1320 All edits/amendments must be made on the electronic document DICTATION DATE: 07/11/19 1320 BOOK SALESMAN: JUSTIN 07/11/19 1320 RPT#: [id number] DC DATE: STATUS: ADM IN [facility] [address] [place] [address] END OF REPORT
[2019-07-11 14:35] VITALS: BP 161/85
--- NOTE | 2019-07-11 17:49 | NUR ---
OT NOTE: PT COMPLETED SUPINE TO SIT WITH SBA. PT COMPLETED EOB SITTING BALANCE WITH SBA. PT COMPLETED BUE AROM EXS AT EOB. [phone] THANK YOU,REKHA WILSON
[2019-07-11 18:10] VITALS: BP 127/57
--- NOTE | 2019-07-11 19:35 | NUR ---
ASSISTED WITH NEEDS BED LOW AND LOCKED PT HAS CALL LIGHT IN REACH CONTINUEING TO OBSERVE DROPLET ISOLATION AT THIS TIME
[2019-07-11 20:00] VITALS: BP 136/76
[2019-07-12 02:46] VITALS: BP 148/56
--- NOTE | 2019-07-12 03:32 | NUR ---
I have reviewed this patient and I concur with the Shift Assessment completed by the Licensed Practical Nurse today this shift.
[2019-07-12 04:00] VITALS: BP 156/88
[2019-07-12 06:39] LABS: BASOPHILS 0.2 % (0-2); EOSINOPHILS 0 % (0-7); HEMATOCRIT 38.3 % (42.0-54.0); HEMOGLOBIN 12.4 g/dL (13.5-17.5); IMMATURE GRANULOCYTES 0.5 % (0-5); LYMPHOCYTES 21.9 % (15-50); MCH 27.6 pg (26.0-34.0); MCHC 32.4 g/dL (31.0-37.0); MCV 85.1 fL (80.0-100.0); MEAN PLATELET VOLUME 11.5 fL (7.4-10.4); MONOCYTES 7.5 % (2-11); NEUTROPHILS 69.9 % (40-80); PLATELET COUNT 118 10x3/uL (130-400); RDW 16.4 % (11.5-14.5); WBC 6.3 10x3/uL (4.8-10.8)
[2019-07-12 06:52] LABS: CALC OSMOLALITY 279 mosm/kg (275-300); CALCIUM 8.5 mg/dL (8.5-10.1); CARBON DIOXIDE 33.3 mmol/L (21.0-32.0); CHLORIDE - SERUM 100 mmol/L (98-107); GLUCOSE 186 mg/dL (74-106); POTASSIUM - SERUM 3.9 mmol/L (3.5-5.1); SODIUM 137 mmol/L (136-145); UREA NITROGEN 16 mg/dL (7-18); eGFR NON AFRICAN AMERICAN 90 mL/min (90-120)
[2019-07-12 06:53] LABS: CREATININE - SERUM 0.9 mg/dL (0.6-1.3)
--- NOTE | 2019-07-12 10:00 | NUR ---
PT SITTING UP IN BED. WATCHING TV. BED LOW. CL IN REACH. PT STATES HE HAS NO FURTHER NEEDS AT THIS TIME.
[2019-07-12 10:06] VITALS: BP 133/68
[2019-07-12 14:01] VITALS: BP 139/73
--- NOTE | 2019-07-12 17:39 | MORECARE ---
CASE MANAGEMENT DISCHARGE SUMMARY PATIENT: YAZAN ANAYA UNIT: [id number] ADM DATE: 07/04/19 AGE: 63 : 54 SEX: M ROOM/BED: D.2137 AUTHOR: KIMBERLEY,DOC PHYSICIAN: REFERRING PHYSICIAN: BELEN SMITH DO DATE OF SERVICE: 07/12/19 Discharge Plan Patient Name: YAZAN ANAYA Facility: [facility]:[place] : 1955 Planned Disposition: Home with Home Health Anticipated Discharge Date: Discharge Date: Expected LOS: Initial Reviewer: [id number] Initial Review Date: 07/09/2019 Generated: 07/12/19 6:38 pm Comments DCP- Discharge Planning Updated by [id number]: Berenice Rodriguez on 07/12/19 4:[address] Patient Name: YAZAN ANAYA Admission Status: ER Accout number: [id number] Admission Date: 07-04-2019 : 1955 Admission Diagnosis: Attending: BELEN SMITH Current LOS: 8 Anticipated DC Date: Planned Disposition: Home with Home Health Primary Insurance: MEDICAID [place] Discharge Planning Comments: FAX DC PAPERWORK TO [facility] WHEN DISCHARGED. Hvac Lead: Berenice Rodriguez DCP- Discharge Planning Updated by [id number]: Yazan Oconnell on 07/09/19 3:[address] Patient Name: YAZAN ANAYA Admission Status: ER Accout number: [id number] Admission Date: 07-04-2019 : 1955 Admission Diagnosis: Attending: BELEN SMITH Current LOS: 5 Anticipated DC Date: Planned Disposition: Home with Home Health Primary Insurance: MEDICAID [place] PLANNED EXTERNAL PROVIDER: [facility] Discharge Planning Comments: CM MET WITH PT IN ROOM TO DISCUSS DISCHARGE PLANNING AND NEEDS. PT REPORTS LIVING AT HOME INDEPENDENTLY AND ALONE PT REPORTS HAVING ALL NEEDED MEDICAL EQUIPMENT WITH HOME AND PORTABLE OXGYEN FROM [facility]. PT HAS PERSONAL CARE WITH ALL AGES ON MONDAY, MONDAY AND MONDAY, 9-12. PT HAS [facility] AND WANTS THEM TO RESUME WHEN HE GOES HOME. CHOICE SIGNED. CM DISCUSSED AVAILABILITY OF HOME HEALTH, REHAB SERVICES AND MEDICAL EQUIPMENT. PT DENIES DISCHARGE NEEDS, REPORTS HIS COUSLIN WILL PICK HIM UP FOR DISCHARGE HOME. CM FAXED [facility] UPDATE. FOR DISCHARGE, NOTIFY [facility] AT [phone]; FAX DISCHARGE INFORMATION TO [facility] AT [phone]. Hvac Lead: Yazan Oconnell DCPIA - Discharge Planning Initial Assessment Updated by [email or web address]: Yazan Oconnell on 07/09/19 4:47 pm * Is the patient Alert and Oriented? Yes * How many steps to enter\exit or inside your home? NONE * PCP DR. MCINTYER * Pharmacy [facility] IN [place] * Preadmission Environment Home Alone * ADLs Partial Dependent * Partial ADLs (Assistance needed) Ambulation Bathing * Equipment CPAP Glucometer Nebulizer Oxygen Power Chair or Electric Scooter Wheelchair * Other Equipment HOME AND PORTABLE OXYGEN [facility] * List name and contact numbers for known caregivers / representatives who currently or will assist patient after discharge: GELA HENDERSON, * Verbal permission to speak to the caregivers and representatives has been obtained from the patient. N/A * Community resources currently utilized Home Health Private Duty Care * Please name any agencies selected above. [facility], MWF, 9-12 * Additional services required to return to the preadmission environment? No * Can the patient safely return to the preadmission environment? Yes * Has this patient been hospitalized within the prior 30 days at any hospital? Yes Coverage Notice Reviewer: [id number] - Yazan Oconnell Notice Issued Date-Time: 07/09/2019 16:20 Notice Type: Patient Choice Letter Notice Delivered To: Patient Relationship to Patient: News Production Assistant Name: Delivery Method: HAND - Hand Delivered Rosanne Days: Prior Verbal Notification: Recipient Understood Notice: Yes Recipient Signature: Yes Med Rec Note Co-signed by Attending: Coverage Notice Comment: [facility] Last DP export: 07/11/19 12:20 p Patient Name: YAZAN ANAYA Page [id number] at 1733 All edits/amendments must be made on the electronic document DICTATION DATE: 07/12/191737 ALLIANCES CONSULTANT: JUSTIN 07/12/191737 RPT#: [id number] ME DATE: STATUS: ADM IN [facility] [address] [place] [address] END OF REPORT
[2019-07-12 18:09] VITALS: BP 112/58
--- NOTE | 2019-07-12 19:30 | NUR ---
RECEIVED REPORT, WILL ASSUME CARE OF PT, WATCHING TV, DENIES ANY NEEDS AT THIS TIME, BED IS LOW, SRX2, CALL LIGHT IN REACH, WILL CONTINUE PLAN OF CARE
[2019-07-12 20:00] VITALS: BP 117/70
[2019-07-13] VITALS: BP 133/76
[2019-07-13 04:00] VITALS: BP 140/74
--- NOTE | 2019-07-13 05:00 | NUR ---
I have reviewed this patient and I concur with the Shift Assessment completed by the Licensed Practical Nurse today this shift.
[2019-07-13 06:14] LABS: BASOPHILS 0.1 % (0-2); EOSINOPHILS 0 % (0-7); HEMATOCRIT 38.7 % (42.0-54.0); HEMOGLOBIN 12.5 g/dL (13.5-17.5); IMMATURE GRANULOCYTES 0.6 % (0-5); LYMPHOCYTES 20.7 % (15-50); MCH 27.5 pg (26.0-34.0); MCHC 32.3 g/dL (31.0-37.0); MCV 85.1 fL (80.0-100.0); MEAN PLATELET VOLUME 11.4 fL (7.4-10.4); MONOCYTES 5.9 % (2-11); NEUTROPHILS 72.7 % (40-80); PLATELET COUNT 126 10x3/uL (130-400); RBC 4.55 10x6/uL (4.20-6.10); RDW 16.3 % (11.5-14.5); WBC 7.2 10x3/uL (4.8-10.8)
[2019-07-13 06:30] LABS: CALC OSMOLALITY 282 mosm/kg (275-300); CARBON DIOXIDE 34.2 mmol/L (21.0-32.0); CHLORIDE - SERUM 101 mmol/L (98-107); CREATININE - SERUM 0.8 mg/dL (0.6-1.3); GLUCOSE 194 mg/dL (74-106); POTASSIUM - SERUM 3.8 mmol/L (3.5-5.1); SODIUM 139 mmol/L (136-145); UREA NITROGEN 13 mg/dL (7-18); eGFR NON AFRICAN AMERICAN > 90 mL/min (90-120)
--- NOTE | 2019-07-13 07:40 | NUR ---
CALL LIGHT ANSWERED. PT DENIES ANY NEEDS OR PAIN, STATED HE DID NOT MEAN TO PUSH CALL LIGHT. BED IN LOWEST POSITION. RR EVEN AND UNLABORED. WILL CONTINUE TO MONITOR.
[2019-07-13 10:17] VITALS: BP 133/72
--- NOTE | 2019-07-13 11:00 | NUR ---
PT ASSISTED TO BEDSIDE COMMODE. BM AND VOID X1. LEFT FOOT DRESSING CHANGED, CDI. NEW SOCKS PLACED. PT CLEANED AND PUT BACK IN CHAIR X2 ASSIST. CALL LIGHT WITHIN REACH. WILL CONTINUE TO MONITOR.
[2019-07-13 13:16] VITALS: BP 123/66
[2019-07-13] MEDS ORDERED: TAMIFLU75 MG PO (13:45)
--- NOTE | 2019-07-13 15:36 | NUR ---
I have reviewed this patient and I concur with the Shift Assessment completed by the Licensed Practical Nurse today this shift.
--- NOTE | 2019-07-13 16:33 | MORECARE ---
CASE MANAGEMENT DISCHARGE SUMMARY PATIENT: YAZAN ANAYA UNIT: [id number] ADM DATE: 07/04/19 AGE: 63 : 53 SEX: M ROOM/BED: D.2137 AUTHOR: SB CHU PHYSICIAN: REFERRING PHYSICIAN: BELEN SMITH DO DATE OF SERVICE: 07/13/19 Discharge Plan Patient Name: YAZAN ANAYA Facility: [facility]:[place] : 1955 Planned Disposition: Home with Home Health Anticipated Discharge Date: Discharge Date: Expected LOS: Initial Reviewer: [id number] Initial Review Date: 07/09/2019 Generated: 07/13/19 5:32 pm Comments DCP- Discharge Planning Updated by [email or web address]: Berenice Rodriguez on 07/13/19 3:[address] Patient Name: YAZAN ANAYA Admission Status: ER Accout number: [id number] Admission Date: 07-04-2019 : 1955 Admission Diagnosis: Attending: BELEN SMITH Current LOS: 9 Anticipated DC Date: Planned Disposition: Home with Home Health Primary Insurance: MEDICAID [place] Discharge Planning Comments: SPOKE WITH PATIENT ABOUT DC PLANNING. THERE IS CONCERN THAT HE MAY NEED REHAB BEFORE DC TO HOME. HIS INSURANCE DOES NOT COVER SNF. I AM CHECKING WITH SOME SNF TO SEE IF WE CAN GET A HELEN BED. PATIENT IN AGREEMENT. I WILL START THE PROCESS. CM TO FOLLOW AND ASSIST. Magnetic Resonance Technologist: Berenice Rodriguez DCP- Discharge Planning Updated by [id number]: Berenice Rodriguez on 07/12/19 4:[address] Patient Name: YAZAN ANAYA Admission Status: ER Accout number: [id number] Admission Date: 07-04-2019 : 1955 Admission Diagnosis: Attending: BELEN SMITH Current LOS: 8 Anticipated DC Date: Planned Disposition: Home with Home Health Primary Insurance: MEDICAID [place] Discharge Planning Comments: FAX DC PAPERWORK TO [facility] WHEN DISCHARGED. Magnetic Resonance Technologist: Berenice Rodriguez DCP- Discharge Planning Updated by [id number]: Yazan Oconnell on 07/09/19 3:[address] Patient Name: YAZAN ANAYA Admission Status: ER Accout number: [id number] Admission Date: 07-04-2019 : 1955 Admission Diagnosis: Attending: BELEN SMITH Current LOS: 5 Anticipated DC Date: Planned Disposition: Home with Home Health Primary Insurance: MEDICAID [place] PLANNED EXTERNAL PROVIDER: [facility] Discharge Planning Comments: CM MET WITH PT IN ROOM TO DISCUSS DISCHARGE PLANNING AND NEEDS. PT REPORTS LIVING AT HOME INDEPENDENTLY AND ALONE PT REPORTS HAVING ALL NEEDED MEDICAL EQUIPMENT WITH HOME AND PORTABLE OXGYEN FROM [facility] PATIENT. PT HAS PERSONAL CARE WITH ALL AGES ON MONDAY, MONDAY AND MONDAY, 01-24. PT HAS [facility] AND WANTS THEM TO RESUME WHEN HE GOES HOME. CHOICE SIGNED. CM DISCUSSED AVAILABILITY OF HOME HEALTH, REHAB SERVICES AND MEDICAL EQUIPMENT. PT DENIES DISCHARGE NEEDS, REPORTS HIS COUSLIN WILL PICK HIM UP FOR DISCHARGE HOME. CM FAXED [facility] UPDATE. FOR DISCHARGE, NOTIFY [facility] AT [phone]; FAX DISCHARGE INFORMATION TO [facility] AT [phone]. Magnetic Resonance Technologist: Yazan Oconnell DCPIA - Discharge Planning Initial Assessment Updated by [id number]: Yazan Oconnell on 07/09/19 4:47 pm * Is the patient Alert and Oriented? Yes * How many steps to enter\exit or inside your home? NONE * PCP DR. MCINTYRE * Pharmacy [facility] IN [place] * Preadmission Environment Home Alone * ADLs Partial Dependent * Partial ADLs (Assistance needed) Ambulation Bathing * Equipment CPAP Glucometer Nebulizer Oxygen Power Chair or Electric Scooter Wheelchair * Other Equipment HOME AND PORTABLE OXYGEN [facility] * List name and contact numbers for known caregivers / representatives who currently or will assist patient after discharge: GELA HENDERSON, * Verbal permission to speak to the caregivers and representatives has been obtained from the patient. N/A * Community resources currently utilized Home Health Private Duty Care * Please name any agencies selected above. [facility], MWF, 9-12 * Additional services required to return to the preadmission environment? No * Can the patient safely return to the preadmission environment? Yes * Has this patient been hospitalized within the prior 30 days at any hospital? Yes Coverage Notice Reviewer: [id number] - Yazan Oconnell Notice Issued Date-Time: 07/09/2019 16:20 Notice Type: Patient Choice Letter Notice Delivered To: Patient Relationship to Patient: Stonemason Apprentice Name: Delivery Method: HAND - Hand Delivered Rosanne Days: Prior Verbal Notification: Recipient Understood Notice: Yes Recipient Signature: Yes Med Rec Note Co-signed by Attending: Coverage Notice Comment: [facility] Last DP export: 07/12/19 4:39 p Patient Name: YAZAN ANAYA Page [phone] at 1633 All edits/amendments must be made on the electronic document DICTATION DATE: 07/13/19 1632 TRAVEL FREIGHT AND PASSENGER AGENT: JUSTIN 07/13/19 1632 RPT#: [id number] DC DATE: STATUS: ADM IN [facility] [address] [place] [address] END OF REPORT
[2019-07-13 16:37] VITALS: BP 123/69
--- NOTE | 2019-07-13 19:10 | NUR ---
BEDSIDE REPORT RECEIVED FROM DAY SHIFT, PT CARE ASSUMED. WROTE NAME ON BOARD. PT SITTING UP IN CHAIR AT BEDSIDE, AAOX4, RECEIVING RESPIRATORY TX. DENIES ANY NEEDS AT THIS TIME. BED IN LOWEST POSITION, CALL LIGHT WITHIN REACH. WILL CONTINUE TO MONITOR.
[2019-07-13 20:00] VITALS: BP 112/67
[2019-07-14] VITALS: BP 110/64
[2019-07-14 04:00] VITALS: BP 119/72
[2019-07-14 06:10] LABS: BASOPHILS 0.1 % (0-2); EOSINOPHILS 0 % (0-7); HEMATOCRIT 38.6 % (42.0-54.0); HEMOGLOBIN 12.6 g/dL (13.5-17.5); IMMATURE GRANULOCYTES 0.6 % (0-5); LYMPHOCYTES 16.7 % (15-50); MCH 27.6 pg (26.0-34.0); MCHC 32.6 g/dL (31.0-37.0); MCV 84.6 fL (80.0-100.0); MEAN PLATELET VOLUME 10.6 fL (7.4-10.4); MONOCYTES 5.7 % (2-11); NEUTROPHILS 76.9 % (40-80); PLATELET COUNT 134 10x3/uL (130-400); RBC 4.56 10x6/uL (4.20-6.10); RDW 16.2 % (11.5-14.5)
[2019-07-14 06:30] LABS: CALC OSMOLALITY 287 mosm/kg (275-300); CARBON DIOXIDE 35.1 mmol/L (21.0-32.0); CHLORIDE - SERUM 99 mmol/L (98-107); CREATININE - SERUM 0.9 mg/dL (0.6-1.3); POTASSIUM - SERUM 3.4 mmol/L (3.5-5.1); SODIUM 139 mmol/L (136-145); UREA NITROGEN 14 mg/dL (7-18); eGFR NON AFRICAN AMERICAN 90 mL/min (90-120)
[2019-07-14 06:31] LABS: GLUCOSE 259 mg/dL (74-106)
--- NOTE | 2019-07-14 07:53 | NUR ---
ASSISTED PATIENT OOB TO BSC AT THIS TIME. FACTORY LABORER WITH PATIENT THIS MEDICAL ENGINEER EXITED ROOM.
--- NOTE | 2019-07-14 08:47 | NUR ---
PATIENT IS AWAKE AND ALERT IN THE BED WITH THE TV ON. IV TO THE RIGHT UPPER ARM IS SALINE LOCKED. O2 IS NOTED AT 4LPM. BED IS IN LOW POSITION AND CALL LIGHT IS IN REACH. DR. SHAH IN THE ROOM. PATIENT DENIES ANY NEEDS AT THIS TIME. WILL CONTINUE TO MONITOR
[2019-07-14 10:56] VITALS: BP 125/66
--- NOTE | 2019-07-14 12:52 | NUR ---
SPOKE WITH PATIENT ABOUT DISCHARGE. PT VERY UPSET ABOUT BEING DISCHARGED HOME AND NOT TO A REHAB FACILITY. CASE MANAGEMENT WAS INVOLVED. THEY STATED THAT DR GONZALES REPORTED THAT THE PT WAS DISCHARGED AND WAS TO GO HOME TODAY. IV REMOVED WITH TIP INTACT. TELEPHONE ORDER DISPATCHER HELPING PT GET DRESSED AND PACK UP PERSONAL BELONGINGS
--- NOTE | 2019-07-15 09:16 | MORECARE ---
CASE MANAGEMENT DISCHARGE SUMMARY PATIENT: YAZAN ANAYA UNIT: [id number] ADM DATE: 07/04/19 AGE: 63 : 53 SEX: M ROOM/BED: D.2137 AUTHOR: SB CHU PHYSICIAN: REFERRING PHYSICIAN: BELEN SMITH DO DATE OF SERVICE: 07/15/19 Discharge Plan Patient Name: YAZAN ANAYA Facility: [facility]:[place] : 1955 Planned Disposition: Home with Home Health Anticipated Discharge Date: Discharge Date: 07/14/2019 Expected LOS: Initial Reviewer: [id number] Initial Review Date: 07/09/2019 Generated: 07/15/19 10:16 am Comments DCP- Discharge Planning Updated by [id number]: Berenice Rodriguez on 07/13/19 3:[address] Patient Name: YAZAN ANAYA Admission Status: ER Accout number: [id number] Admission Date: 07-04-2019 : 1955 Admission Diagnosis: Attending: BELEN SMITH Current LOS: 9 Anticipated DC Date: Planned Disposition: Home with Home Health Primary Insurance: MEDICAID [place] Discharge Planning Comments: SPOKE WITH PATIENT ABOUT DC PLANNING. THERE IS CONCERN THAT HE MAY NEED REHAB BEFORE DC TO HOME. HIS INSURANCE DOES NOT COVER SNF. I AM CHECKING WITH SOME SNF TO SEE IF WE CAN GET A HELEN BED. PATIENT IN AGREEMENT. I WILL START THE PROCESS. CM TO FOLLOW AND ASSIST. Coil Tester: Berenice Rodriguez DCP- Discharge Planning Updated by [email or web address]: Berenice Rodriguez on 07/12/19 4:[address] Patient Name: YAZAN ANAYA Admission Status: ER Accout number: [id number] Admission Date: 07-04-2019 : 1955 Admission Diagnosis: Attending: BELEN SMITH Current LOS: 8 Anticipated DC Date: Planned Disposition: Home with Home Health Primary Insurance: MEDICAID [place] Discharge Planning Comments: FAX DC PAPERWORK TO [facility] WHEN DISCHARGED. Coil Tester: Berenice Rodriguez DCP- Discharge Planning Updated by [id number]: Yazan Oconnell on 07/09/19 3:[address] Patient Name: YAZAN ANAYA Admission Status: ER Accout number: [id number] Admission Date: 07-04-2019 : 1955 Admission Diagnosis: Attending: BELEN SMITH Current LOS: 5 Anticipated DC Date: Planned Disposition: Home with Home Health Primary Insurance: MEDICAID [place] PLANNED EXTERNAL PROVIDER: [facility] Discharge Planning Comments: CM MET WITH PT IN ROOM TO DISCUSS DISCHARGE PLANNING AND NEEDS. PT REPORTS LIVING AT HOME INDEPENDENTLY AND ALONE PT REPORTS HAVING ALL NEEDED MEDICAL EQUIPMENT WITH HOME AND PORTABLE OXGYEN FROM [facility] PATIENT. PT HAS PERSONAL CARE WITH ALL AGES ON MONDAY, MONDAY AND MONDAY, 01-24. PT HAS [facility] AND WANTS THEM TO RESUME WHEN HE GOES HOME. CHOICE SIGNED. CM DISCUSSED AVAILABILITY OF HOME HEALTH, REHAB SERVICES AND MEDICAL EQUIPMENT. PT DENIES DISCHARGE NEEDS, REPORTS HIS COUSLIN WILL PICK HIM UP FOR DISCHARGE HOME. CM FAXED [facility]. FOR DISCHARGE, NOTIFY [facility] AT [phone]; FAX DISCHARGE INFORMATION TO [facility] AT [phone]. Coil Tester: Yazan Oconnell DCPIA - Discharge Planning Initial Assessment Updated by [email or web address]: Yazan Oconnell on 07/09/19 4:47 pm * Is the patient Alert and Oriented? Yes * How many steps to enter\exit or inside your home? NONE * PCP DR. MCINTYRE * Pharmacy [facility] IN [place] * Preadmission Environment Home Alone * ADLs Partial Dependent * Partial ADLs (Assistance needed) Ambulation Bathing * Equipment CPAP Glucometer Nebulizer Oxygen Power Chair or Electric Scooter Wheelchair * Other Equipment HOME AND PORTABLE OXYGEN [facility] [place] [facility] * List name and contact numbers for known caregivers / representatives who currently or will assist patient after discharge: GELA HENDERSON, * Verbal permission to speak to the caregivers and representatives has been obtained from the patient. N/A * Community resources currently utilized Home Health Private Duty Care * Please name any agencies selected above. [facility], MW, 9-12 * Additional services required to return to the preadmission environment? No * Can the patient safely return to the preadmission environment? Yes * Has this patient been hospitalized within the prior 30 days at any hospital? Yes Coverage Notice Reviewer: [id number] - Yazan Oconnell Notice Issued Date-Time: 07/09/2019 16:20 Notice Type: Patient Choice Letter Notice Delivered To: Patient Relationship to Patient: Agricultural Chemicals Inspector Name: Delivery Method: HAND - Hand Delivered Rosanne Days: Prior Verbal Notification: Recipient Understood Notice: Yes Recipient Signature: Yes Med Rec Note Co-signed by Attending: Coverage Notice Comment: [facility] Last DP export: 07/13/19 3:32 p Patient Name: YAZAN ANAYA Page 99269 at 0916 All edits/amendments must be made on the electronic document DICTATION DATE: 07/15/19915 IT SALES EXECUTIVE: DM 07/15/19915 RPT#: [id number] DC DATE:07/14/19 STATUS: DIS IN [facility] [address] [place] [address] END OF REPORT
--- NOTE | 2019-07-15 12:19 | MORECARE ---
CASE MANAGEMENT DISCHARGE SUMMARY PATIENT: YAZAN ANAYA UNIT: [id number] ADM DATE: 07/04/19 AGE: 63 : 54 SEX: M ROOM/BED: D.213 AUTHOR: SB CHU PHYSICIAN: REFERRING PHYSICIAN: BELEN SMITH DO DATE OF SERVICE: 07/15/19 Discharge Plan Patient Name: YAZAN ANAYA Facility: [facility]:[place] : 1955 Planned Disposition: Home with Home Health Anticipated Discharge Date: 07/14/19 Discharge Date: 07/14/2019 Expected LOS: 10 Initial Reviewer: [id number] Initial Review Date: 07/09/2019 Generated: 07/15/19 1:18 pm Comments DCP- Discharge Planning Updated by [id number]: Yazan Oconnell on 07/15/19 11:[address] Patient Name: YAZAN ANAYA Encounter No: [id number] : 1955 Primary Insurance: MEDICAID [place] Anticipated DC Date: Planned Disposition: Home with Home Health External Planned Provider: [facility] Discharge Planning Comments: CM RECEIVED CALL FROM [facility], THEY DID NOT RECEIVE DISCHARGE INFORMATION FOR PT AT DISCHARGE. CM NOTIFIED [facility] NURSE OF DISCHARGE AT [phone]; FAXED DISCHARGE INFORMATION TO [facility] AT [phone]. General Matcher: Yazan Oconnell DCP- Discharge Planning Updated by [id number]: Berenice Rodriguez on 07/13/19 3:[address] Patient Name: YAZAN ANAYA Admission Status: ER Accout number: [id number] Admission Date: 07-04-2019 : 1955 Admission Diagnosis: Attending: BELEN SMITH Current LOS: 9 Anticipated DC Date: Planned Disposition: Home with Home Health Primary Insurance: MEDICAID [place] Discharge Planning Comments: SPOKE WITH PATIENT ABOUT DC PLANNING. THERE IS CONCERN THAT HE MAY NEED REHAB BEFORE DC TO HOME. HIS INSURANCE DOES NOT COVER SNF. I AM CHECKING WITH SOME SNF TO SEE IF WE CAN GET A HELEN BED. PATIENT IN AGREEMENT. I WILL START THE PROCESS. CM TO FOLLOW AND ASSIST. General Matcher: Berenice Rodriguez DCP- Discharge Planning Updated by [email or web address]: Berenice Rodriguez on 07/12/19 4:[address] Patient Name: YAZAN ANAYA Admission Status: ER Accout number: [id number] Admission Date: 07-04-2019 : 1955 Admission Diagnosis: Attending: BELEN SMITH Current LOS: 8 Anticipated DC Date: Planned Disposition: Home with Home Health Primary Insurance: MEDICAID [place] Discharge Planning Comments: FAX DC PAPERWORK TO [facility] WHEN DISCHARGED. General Matcher: Berenice Rodriguez DCP- Discharge Planning Updated by [id number]: Yazan Oconnell on 07/09/19 3:[address] Patient Name: YAZAN ANAYA Admission Status: ER Accout number: [id number] Admission Date: 07-04-2019 : 1955 Admission Diagnosis: Attending: BELEN SMITH Current LOS: 5 Anticipated DC Date: Planned Disposition: Home with Home Health Primary Insurance: MEDICAID [place] PLANNED EXTERNAL PROVIDER: [facility] Discharge Planning Comments: CM MET WITH PT IN ROOM TO DISCUSS DISCHARGE PLANNING AND NEEDS. PT REPORTS LIVING AT HOME INDEPENDENTLY AND ALONE PT REPORTS HAVING ALL NEEDED MEDICAL EQUIPMENT WITH HOME AND PORTABLE OXGYEN FROM [facility] PATIENT. PT HAS PERSONAL CARE WITH ALL AGES ON MONDAY, MONDAY AND MONDAY, 9-12. PT HAS [facility] AND WANTS THEM TO RESUME WHEN HE GOES HOME. CHOICE SIGNED. CM DISCUSSED AVAILABILITY OF HOME HEALTH, REHAB SERVICES AND MEDICAL EQUIPMENT. PT DENIES DISCHARGE NEEDS, REPORTS HIS COUSLIN WILL PICK HIM UP FOR DISCHARGE HOME. CM FAXED [facility] UPDATE. FOR DISCHARGE, NOTIFY [facility] AT [phone]; FAX DISCHARGE INFORMATION TO [facility] AT [phone]. General Matcher: Yazan Oconnell DCPIA - Discharge Planning Initial Assessment Updated by [email or web address]: Yazan Oconnell on 07/09/19 4:47 pm * Is the patient Alert and Oriented? Yes * How many steps to enter\exit or inside your home? NONE * PCP DR. MCINTYRE * Pharmacy [facility] IN [place] * Preadmission Environment Home Alone * ADLs Partial Dependent * Partial ADLs (Assistance needed) Ambulation Bathing * Equipment CPAP Glucometer Nebulizer Oxygen Power Chair or Electric Scooter Wheelchair * Other Equipment HOME AND PORTABLE OXYGEN [facility] * List name and contact numbers for known caregivers / representatives who currently or will assist patient after discharge: GELA HENDERSON, * Verbal permission to speak to the caregivers and representatives has been obtained from the patient. N/A * Community resources currently utilized Home Health Private Duty Care * Please name any agencies selected above. [facility], MWF, 9-12 * Additional services required to return to the preadmission environment? No * Can the patient safely return to the preadmission environment? Yes * Has this patient been hospitalized within the prior 30 days at any hospital? Yes Coverage Notice Reviewer: [id number] Ezequiel Oconnell Notice Issued Date-Time: 07/09/2019 16:20 Notice Type: Patient Choice Letter Notice Delivered To: Patient Relationship to Patient: Strategic Planning Specialist Name: Delivery Method: HAND - Hand Delivered Rosanne Days: Prior Verbal Notification: Recipient Understood Notice: Yes Recipient Signature: Yes Med Rec Note Co-signed by Attending: Coverage Notice Comment: [facility] Last DP export: 07/15/19 8:16 am Patient Name: YAZAN ANAYA Page 23666 at 1219 All edits/amendments must be made on the electronic document DICTATION DATE: 07/15/19 1218 HOT WALKER: JUSTIN 07/15/198 RPT#: [id number] DC DATE:07/14/19 STATUS: DIS IN [facility] [address] [place] [address] END OF REPORT
== END 2019-07-14 13:16 | disposition home health service (06) | DRG 166 ==
LOC: D.ER 19:08 → D.M2 20:51
PROVIDERS: Emergency Medicine; Family Medicine; Internal Medicine Nephrology; ADMIT Family Medicine; ATTEND Family Medicine
PROC: 0JBR0ZZ Excision of Left Foot Subcutaneous Tissue and Fascia, Open Approach (ICD-10-PCS; principal; 2019-07-08)
PROC: 0JBQ0ZZ Excision of Right Foot Subcutaneous Tissue and Fascia, Open Approach (ICD-10-PCS; 2019-07-08)
DX: J47.0 Bronchiectasis with acute lower respiratory infection (principal); I50.33 Acute on chronic diastolic (congestive) heart failure; J96.21 Acute and chronic respiratory failure with hypoxia; F17.213 Nicotine dependence, cigarettes, with withdrawal; N17.9 Acute kidney failure, unspecified; J18.9 Pneumonia, unspecified organism; I48.91 Unspecified atrial fibrillation; T87.89 Other complications of amputation stump; Y83.9 Surgical procedure, unspecified as the cause of abnormal reaction of the patient, or of later complication, without mention of misadventure at the time of the procedure; K21.9 Gastro-esophageal reflux disease without esophagitis; I71.2 Thoracic aortic aneurysm, without rupture; J43.9 Emphysema, unspecified; E11.65 Type 2 diabetes mellitus with hyperglycemia; E11.621 Type 2 diabetes mellitus with foot ulcer; L97.522 Non-pressure chronic ulcer of other part of left foot with fat layer exposed; L97.512 Non-pressure chronic ulcer of other part of right foot with fat layer exposed; I25.10 Atherosclerotic heart disease of native coronary artery without angina pectoris

== ENCOUNTER 2019-07-16 15:13 | Inpatient (IN) | payer MEDICAID ==
[~2019-07-16] VITALS: Ht 188 cm; Wt 129.3 kg
--- NOTE | ~2019-07-16 | EC ---
PATIENT:YAZAN ANAYA DATE OF SERVICE: 07/16/19 SEX: M MEDICAL RECORD: [id number] DATE OF : [birth year] LOCATION:D.M2 D.210 AGE OF PATIENT: 63 ADMISSION DATE: 07/16/19 REFERRING PHYSICIAN: INTERPRETING PHYSICIAN: VENTURA MAYER MD ECHOCARDIOGRAM REPORT ECHO CHARGES 5 ECHO LIMITED Date: 07/17/19 CLINICAL DIAGNOSIS: DE ECHOCARDIOGRAPHIC MEASUREMENTS (adult normal given) AC root (d.<3.7cm) cm LV Septum d (<1.2 cm> cm Valve Excursion cm LV Septum (systole) cm Left Atria (s.<4.0cm> cm LVPW d(<1.2cm) cm RV (d.<2.3cm) 6.4 cm LVPW (sytole) cm LV diastole(<5.6CM) cm MV E-F(>70mm/sec) cm LV systole cm LVOT Diameter cm MV exc.(>10mm) cm Est.ejection fraction (50-75%) % DOPPLER: LVIT cm/sec A cm/sec E cm/sec LA cm/sec RVSP 49 mmHg LVOT cm/sec AOP1/2T m/s Asc. Ao cm/sec RVOT cm/sec RA cm/sec PA cm/sec AV Gradient Peak mmHg AV Mean mmHg AV Area cm MV Gradient Peak mmHg MV Mean mmHg MV Area cm COMMENTS: Mill Representative: Saw ANTONIO Burning Machine Operator: 1 Dr. Mayer TAPE# PACS Pericardial Effusion N DATE OF SERVICE: PROCEDURE: Limited echo for ejection fraction. FINDINGS: Left ventricular chamber size is within normal limits. Left ventricular systolic function is normal at 55%. TRANSINT:[id number] Voice Confirmation ID: [id number] DOCUMENT ID: [id number] ECHOCARDIOGRAM REPORT [id number] YAZAN ANAYA VENTURA MAYER MD CC: [id number] DICTATION DATE: 07/18/19923 WATER PUMPING STATION ENGINEER: 07/18/19 09 ADM IN [place] [address] [place] [address]
--- NOTE | ~2019-07-16 | OP ---
PATIENT NAME: YAZAN ANAYA MEDICAL RECORD: [id number] :53 LOCATION:D.M2 D.2103 ADMISSION DATE:07/16/19 SURGEON: VENTURA BENSON MD DATE OF OPERATION: 07/18/2019 PROCEDURES: 1. Left heart catheterization. 2. Selective coronary angiography. 3. Left ventriculogram. INDICATION: Non-Q-wave myocardial infarction. DESCRIPTION OF PROCEDURE: After informed consent was obtained and after a detailed description of risks, benefits as well as alternative therapies, the patient elected to proceed with angiogram and heart catheterization. The right radial area was prepped and draped in normal sterile fashion. Right radial artery was cannulated via modified Seldinger technique with placement of 5-Mongolian sheath. All catheters exchanged through this sheath. FINDINGS: Left ventriculogram was performed in standard 30-degree LIZARRAGA view, reveals global hypokinesis, ejection fraction in the 40% range. SELECTIVE CORONARY ANGIOGRAPHY: Left main, left anterior descending, left circumflex, right coronary artery are all smooth-walled vessels with no angiographic evidence of coronary artery disease. OVERALL IMPRESSION: 1. No angiographic evidence of coronary artery disease. 2. Normal left heart pressures. 3. Normal left ventricular systolic function. Elevated troponin secondary to the demand ischemia from the atrial fibrillation. Center medical management on treatment of the atrial fibrillation. TRANSINT:[id number] Voice Confirmation ID: [id number] DOCUMENT ID: [id number] VENTURA BENSON MD CC: [id number] DICTATION DATE: 07/18/19 1104 DONOR RELATIONS ASSOCIATE: 07/18/19 1241 ADM IN [facility] [address] [place] [address]
--- NOTE | ~2019-07-16 | CN ---
PATIENT NAME:YAZAN ANAYA MEDICAL RECORD: [id number] : 53 LOCATION:D.M2 D.2103 ADMIT DATE: 07/16/19 ACCOUNT: [id number] CONSULTING PHYSICIAN: VENTURA BENSON MD REFERRING PHYSICIAN: JONH RIVERA MD DATE OF CONSULTATION: 07/17/2019 CARDIOLOGY CONSULT DIAGNOSES: 1. Non-Q-wave myocardial infarction. 2. Coronary artery disease. 3. Previous cardiac stents. 4. Paroxysmal atrial fibrillation. 5. Chronic obstructive pulmonary disease. 6. Smoking. 7. Insulin-dependent diabetes. 8. Obesity. HISTORY OF PRESENT ILLNESS: This is a gentleman known to us status post multivessel PTCA and stent, the last being approximately a year ago, who presents with shortness of breath and chest discomfort. He was found by EMS to be in atrial fibrillation with rapid ventricular response. He has a history of atrial fibrillation. He is on p.o. Cordarone for the atrial fibrillation. He was given p.o. sotalol and converted to sinus rhythm. His troponin is elevated. His EKG suggests anterior ischemia. PHYSICAL EXAMINATION: CONSTITUTIONAL/GENERAL APPEARANCE: Well nourished, well developed, appears stated age. EYES: Lids and conjunctivae noninjected. No discharge. No pallor. ENT: Lips within normal limit. No cyanosis. No pallor. NECK: Carotid arteries, bilateral normal upstroke. No bruits. No thrills. No jugular venous pressure or distention. CERVICAL LYMPH NODES: Nontender. Nonenlarged. THYROID: Not enlarged. No nodules. CARDIOVASCULAR: Precordial exam, nondisplaced. No heaves or pericardial thrills. Rate and rhythm, regular. Heart sounds, normal S1, normal S2. No S3, no gallop, no rub. Systolic murmur, not heard. Diastolic murmur, not heard. RESPIRATORY: Respiratory effort, unlabored. Normal curvature. No thoracic deformity. No chest wall tenderness. Percussion, resonant. Auscultation, clear. No wheezes, no rales, no rhonchi. ABDOMEN: Soft, nondistended, nontender. No abdominal pain, no vomiting and normal appetite. MUSCULOSKELETAL: No joint tenderness, normal gait, normal tone. SKIN: Warm and dry. OVERALL IMPRESSION: Non-Q-wave myocardial infarction, abnormal ECG in a patient with multivessel coronary disease. Most likely he has recurrent hemodynamically significant coronary artery disease. We will continue the sotalol. We will get an echocardiogram today. Proceed with coronary angiography in the a.m. TRANSINT:[id number] Voice Confirmation ID: [id number] DOCUMENT ID: [id number] CONSULT REPORT [id number] YAZAN ANAYA JEFFREY MD CC: [id number] DICTATION DATE: 07/17/19849 INSTRUMENT INSTALLER: 07/17/19 1049 ADM IN [facility] [address] [place] [address]
--- NOTE | ~2019-07-16 | HEMODYNAMI ---
PATIENT:YAZAN ANAYA MEDICAL RECORD: [id number] : 53 LOCATION:[facility] D.2103 ADMISSION DATE: 07/16/19 Generatedon:07/18/201911:00 Patient name: YAZAN ANAYA Patient #: [id number] SSN: DO B: 1955 Date of study: 07/18/2019 Page: Of Hemodynamic Procedure Report Patient Data Patient Demographics Procedure consent was obtained First Name: YAZAN Gender: Male Last Name: JACLYN : 1955 Middle Initial: SANTIAGO Age: 63 year(s) Patient #: [id number] Race: Additional ID: [id number] Contact details Address: [address] [place] [address] street State: [place] City: [place] Zip code: [address] Past Medical History History of disease Date Diagnosis Comments CAD Allergies Allergen Reaction Date Comments Reported Other allergy 07/07/2017 Other allergy 07/18/2019 NKA Admission Admission Data Admission Date: 07/16/2019 Admission Time: 19:59 Room #: D.2103 Height (in.): 74 BSA: 2.52 (m2) Height (cm.): 187.96 BMI: 36.51 (kg/m2) Weight (lbs.): 284.4 Weight (kg.): 129 Lab Results Lab Result Date: 07/18/2019 Lab Result Time: 0:00 Biochemistry Name Units Result Min Max Creatinine mg/dl 1 --(--*-)-- 0.6 1.3 eGFR ml/min 79.57732 *-(----)-- 90 120 NONAFRICAN CBC Name Units Result Min Max Hematocrit % 38.5 *-(----)-- 42 54 Hemoglobin g/dl 12.3 *-(----)-- 13.5 17.5 Procedure Procedure Types Cath Procedure Diagnostic Procedure LHC LHC w/Coronaries Procedure Description Procedure Date Procedure Date: 07/18/2019 Procedure Start Time: 10:51 Procedure End Time: 10:59 Procedure Staff Name Function Shashi Mayer MD Performing Physician Ave Jacome RN Monitor Cori Jemal RT Scrub Day Storm RN Nurse Truong Cardoza RN Nurse Procedure Data Cath Procedure Fluoroscopy Diagnostic fluoroscopy Total fluoroscopy Time: 1 time: 1 min min Diagnostic fluoroscopy Total fluoroscopy dose: dose: 244.36 mGy 244.36 mGy Contrast Material Contrast Material Type Amount (ml) Isovue 300 36 Entry Location Entry Primary Successful Side Size Upsize Upsize Entry Closure [place] ccessful Closure Location (Fr) 1 (Fr) 2 (Fr) Remarks Device Remarks Radial Right 6 Fr Manual artery Short Compression Estimated blood loss: 5 ml Diagnostic catheters Device Type Used For End Catheter Placement DIAGNOSTIC [place] 110cm 5 Procedure Fr catheter ([id number]) Procedure Complications No complications Procedure Medications Medication Administration Route Dosage 0.9% NaCl I.V. 10 ml/hr Lidocaine 2% added to field 20 Heparin Flush Bag added to field 2 bags (1000units/500ml NS) Oxygen NC 3 l/min Versed I.V. 0.5 mg Fentanyl I.V. 25 mcg Radial Cocktail added to field 1 syringe (Verapamil 2mg/Nitro 400mcg/Heparin 1500units) Hemodynamics Rest BSA: 2.52 (m2) HGB: 12.3 (g/dl) O2 Consumption: Estimated: 270.39 (ml/min) O2 Co nsumption indexed: Estimated:107.3 (ml/min/m) Heart Rate: 45 (bpm) Snapshots Pre Cath Intra NCS Post Cath Vital Signs Time Heart Resp SPO2 etCO2 NIBP (mmHg) Rhythm Pain Sedation Rate (ipm) (%) (mmHg) Status Level (bpm) 10:39:56 54 21 94 19.6 119/69(107) NSR 0 (11) 10(A) , No pain 10:44:16 63 26 95 13.5 127/62(109) NSR 0 (11) 10(A) , No pain 10:48:38 54 21 92 11.3 126/64(108) NSR 0 (11) 10(A) , No pain 10:53:01 55 23 92 14.3 109/59(87) NSR 0 (11) 10(A) , No pain 10:57:19 57 25 92 13.5 97/44(71) NSR 0 (11) 9(A) , No pain Medications Time Medication Route Dose Verified Delivered Reason Notes Ef fectiveness by by 10:39:59 0.9% NaCl I.V. 10 Shashi Day used for ml/hr Leyla Storm companion caregiver 10:40:08 Lidocaine 2% added 20ml Shashi Day for local to vial Leyla Storm anesthetic field RN 10:40:17 Heparin Flush added 2 bags Shashi Day used for Bag to Leyla Storm procedure (1000units/500ml field RN NS) 10:40:30 Oxygen NC 3 l/min Shashi Bernstein for low 02 Leyla Storm sats RN 10:54:35 Versed I.V. 0.5 mg Shashi Day for Leyla Storm sedation RN 10:54:44 Fentanyl I.V. 25 mcg Shashi Mcclellananda for Leyla Storm sedation RN 10:55:00 Radial Cocktail added 1 Shashi Day used for (Verapamil to syringe Leyla Storm procedure 2mg/Nitro field RN 400mcg/Heparin 1500units) Procedure Log Time Note 10:20:05 Informed consent obtained and on chart 10:20:29 Day Storm RN sent for patient. Start room use. 10:20:31 Procedure Status Urgent Heart Cath (IP). 10:20:32 Time tracking: Regular hours (M-F 7:00 - 5:00) 10:20:36 Plan of Care:Hemodynamics will remain stable., Cardiac rhythm will remain stable., Comfort level will be maintained., Respiratory function will remain adequate., Patient/ family verbilizes understanding of procedure., Procedure tolerated without complication., Recovers from procedure without complications.. 10:20:40 H&P Date Dictated: 07/18/2019 New H&P dictated by physician.. 10:28:09 Patient Weight : 284.4 lbs 10:28:13 Patient Height : 74 inches 10:30:31 Patient received from Med II to CCL 3 Alert and oriented. Tansferred to table in Supine position. 10:30:32 Warm blankets applied, and willie hugger turned on for patient comfort. 10:30:32 Correct patient and procedure confirmed by team. 10:30:33 ECG and BP/O2 sat monitors applied to patient. 10:38:43 Vital chart was started 10:38:45 Baseline sample Acquired. 10:38:50 Rhythm: sinus bradycardia 10:38:52 Full Disclosure recording started 10:38:53 Pre-procedure instructions explained to patient. 10:38:53 Pre-op teaching completed and patient verbalized understanding. 10:38:55 Family unavailable. 10:38:56 Patient NPO since Midnight. 10:39:14 Patient allergic to Other allergyNKA 10:39:18 Is the patient allergic to Iodine/contrast media? No. 10:39:20 Was the patient premedicated? N/A 10:39:52 Is patient on blood thinner?Yes 10:39:56 ACC The patient was administered the following blood thiners within the last 24 hours: ACCPlavix 10:39:59 0.9% NaCl 10 ml/hr I.V. was administered by Day Storm RN; used for procedure; Verbal order read back and verified. 10:40:08 Lidocaine 2% 20ml vial added to field was administered by Day Storm RN; for local anesthetic; Verbal order read back and verified. 10:40:12 Patient diabetic? Yes. 10:40:14 If diabetic: On Metformin? No 10:40:17 Heparin Flush Bag (1000units/500ml NS) 2 bags added to field was administered by Day Storm RN; used for procedure; Verbal order read back and verified. 10:40:21 Previous problem with sedation/anesthesia? No ? 10:40:24 Snore? Yes 10:40:25 Sleep apnea? No 10:40:27 Deviated septum? No 10:40:28 Opens mouth fully? Yes 10:40:29 Sticks out tongue? Yes 10:40:30 Oxygen 3 l/min NC was administered by Day Storm RN; for low 02 sats; Verbal order read back and verified. 10:40:31 Airway obstruction? No ? 10:40:34 Dentures? No ? 10:40:41 Pre procedure: right radial pulse 2+ Normal; easily identifiable; not easily obliterated 10:40:44 Modified Vipin's test Radial < 7 seconds 10:40:52 IV patent on arrival in left hand with 0.9% NaCl at [facility]. 10:41:41 Lab Result : Creatinine 1 mg/dl 10:41:41 Lab Result : eGFR NONAFRICAN 79.65792 ml/min 10::41 Lab Result : Hemoglobin 12.3 g/dl 10::41 Lab Result : Hematocrit 38.5 % 10:41:50 Stress Test: no; N/A ? 10:41:56 Right Radial & Right Groin area was prepped with chlora-prep and draped in sterile fashion 10:41:58 Alarms reviewed by R. N. 10:41:58 Sharps counted by scrub and verified by R.N. 10:50:10 Risk of Mortality: 0.1 10:50:15 Risk of blood transfusion: 0.1 10:50:19 Risk of KARLO: 0.3 10:50:23 --------ALL STOP TIME OUT------ 10:50:24 Final Timeout: patient, procedure, and site verified with staff and physician. All members of the team are in agreement. 10:50:26 Right Radial & Right Groin site verified by team. 10:50:29 Fire Safety Assessment: A--An alcohol-based skin anteseptic being used preoperatively., C--Open oxygen or nitrous oxide is being used., D--An ESU, laser, or fiber-optic light is being used. 10:50:34 Physical assessment completed. ASA score P 3 - A patient with severe systemic disease as per Shashi Mayer MD. 10:50:41 2) 60-89 Mildly reduced kidney function, and other findings (as for stage 1) point to kidney disease. 10:50:43 Maximum allowable contrast dose (3.7 X eGFR X 0.75)222 ml. 10:50:52 Sedation plan: IV Moderate Sedation Medication:Versed, Fentanyl 10:50:56 Use device set Radial Dx or PCI 10:50:58 ACIST Syringe (10963) opened to sterile field. 10:50:59 Medline Cath Pack ([id number]) opened to sterile field. 10:50:59 Bag Decanter () opened to sterile field. 10:51:00 ACIST Hand Control (30584) opened to sterile field. 10:51:00 ACIST Manifold (99638) opened to sterile field. 10:51:01 Tegaderm 4 x 4 (1626W) opened to sterile field. 10:51:02 MBrace Wrist Support (300587040) opened to sterile field. 10:51:04 EMERALD Guide Wire (675-180) opened to sterile field. 10:51:05 SHEATH 6FR RAIN (9262620) opened to sterile field. 10:51:11 Procedure started. 10:51:49 Local anesthetic to right radial artery with Lidocaine 2% by Shashi Mayer MD.INITIAL ACCESS ONLY 10:52:45 A 6 Fr Short sheath was inserted into the Right Radial artery 10:53:42 A DIAGNOSTIC [place] 110cm 5 Fr catheter (086246) was advanced over the wire and used for Procedure. 10:54:35 Versed 0.5 mg I.V. was administered by Day Storm RN; for sedation; Verbal order read back and verified. 10:54:44 Fentanyl 25 mcg I.V. was administered by Day Storm RN; for sedation; Verbal order read back and verified. 10:54:50 LV gram done using LIZARRAGA 10:54:55 Injector settings: Ml/sec: 10, Volume: 20, 10:55:00 Radial Cocktail (Verapamil 2mg/Nitro 400mcg/Heparin 1500units) 1 syringe added to field was administered by Day Storm RN; used for procedure; Verbal order read back and verified. 10:55:14 EF : 35 % 10:55:41 LCA angiography performed. 10:56:28 RCA angiography performed. 10:56:33 ACCDominant side:Right 10:56:34 Catheter removed. 10:57:08 Sheath removed intact; hemostasis achieved with Manual Compression to the Right Radial artery. 10:57:10 Procedure ended.(Physican Out) 10:57:22 Fluoroscopy time 01.00 minutes. 10:57:28 ZEPHYR REGULAR TR BAND (386296) opened to sterile field. 10:57:35 Flurop Dose total: 244.36 10:57:35 Fluoroscopy dose: 244.36 mGy 10:57:39 Dose Area Product 65185 mGy/cm. 10:57:43 Contrast amount:Isovue 300 36ml. 10:57:46 Maximum allowable dose exceeded? No. 10:58:02 Sharps counted by scrub and verified by R.N. 10:58:05 [place] band inflated with 10cc of air. 10:58:07 Insertion/operative site no bleeding no hematoma. 10:58:17 Post right radial artery:stable, soft, clean and dry 10:58:19 Post Procedure Pulses reassessed and unchanged 10:58:22 Post procedure: right radial pulse 2+ Normal; easily identifiable; not easily obliterated. 10:58:26 Post-procedure physical assessment completed. ASA score P 3 - A patient with severe systemic disease as per Shashi Mayer MD. 10:58:33 Post procedure rhythm: unchanged. 10:58:36 Estimated blood loss: 5 ml 10:58:37 Post procedure instruction explained to patient.Patient verbalizes understanding. 10:58:37 Patient needs reinforcement of post procedure teaching. 10:59:04 Procedure and supply charges have been captured, reviewed, submitted and are correct. 10:59:08 Procedure Complication : No complications 10:59:09 Vital chart was stopped 10:59:11 [facility] Findings: mild to moderate CAD (<70%) 10:59:12 Operative report dictated upon procedure completion. 10:59:12 See physician's report for complete and final results. 10:59:15 Report given to [facility]. 10:59:18 Patient transfered to [facility] with Bed. 10:59:23 Procedure ended. 10:59:23 Full Disclosure recording stopped 10:59:27 End room use (Document Last) Device Usage Item Name Manufacture Quantity Catalog Hospital Part Current Minima l Lot# / Number Charge Number Stock Stock Serial# Code ACIST Acist 1 70603 518800 529568 [id number] 20 Syringe Medical (88019) Systems Inc Medline Medline 1 [id number] 565946 44823 293868 5 Cath Pack ([id number]) Bag Microtek 1 963770 26723 881966 5 Decanter Medical Inc. () ACIST Hand Acist 1 12030 463724 224451 708011 5 Control Medical (25602) Systems Inc ACIST Acist 1 06769 138479 174239 222964 5 Manifold Medical (99962) Systems Inc Tegaderm 4 3M 1 1626W 498837 153179 565993 5 x 4 (1626W) MBrace Advanced 1 140-0250-00 800696 79218 468263 5 Wrist Vascular Support Dynamics ([id number]) formerly [facility] 1 502-455 869955 943519 671238 5 Guide Wire Health (942-788) SHEATH 6FR Cardinal 1 7168390 972042 6462693 308620 5 [facility] (2757955) DIAGNOSTIC Terumo 1 40-7154 478222 130375 134467 5 [place] 110cm 5 Fr catheter (658318) ZEPHYR Cardinal 1 813529 337051 8028001 650975 5 REGULAR TR Health BAND (562189) Signature Audit Kathleen Stage Time Signature Unsigned Intra-Procedure 07/18/2019 Ave Jacome 10:59:42 AM RN Intra-Procedure 07/18/2019 Truong 11:00:01 AM Sony JUAREZ Intra-Procedure 07/18/2019 Shashi Mayer 11:00:34 AM [place] [id number] [place] [address]
[~2019-07-16 15:13] MED LIST changes: +TAMIFLU75 MG PO
[2019-07-16 15:42] LABS: BASOPHILS 0.1 % (0-2); EOSINOPHILS 0 % (0-7); HEMATOCRIT 42.9 % (42.0-54.0); HEMOGLOBIN 14.3 g/dL (13.5-17.5); IMMATURE GRANULOCYTES 0.9 % (0-5); LYMPHOCYTES 11.2 % (15-50); MCH 28.3 pg (26.0-34.0); MCHC 33.3 g/dL (31.0-37.0); MEAN PLATELET VOLUME 11.5 fL (7.4-10.4); MONOCYTES 6.2 % (2-11); NEUTROPHILS 81.6 % (40-80); PLATELET COUNT 210 10x3/uL (130-400); RBC 5.05 10x6/uL (4.20-6.10); RDW 16.5 % (11.5-14.5); WBC 19.9 10x3/uL (4.8-10.8)
[2019-07-16 15:54] LABS: INR 1.12 (0.85-1.17); PROTIME 14.3 SECONDS (11.6-15.0)
[2019-07-16 15:55] LABS: D-DIMER-QUANTITATIVE 1.44 ug/mLFEU (0.20-0.54)
[2019-07-16 16:03] LABS: CALC OSMOLALITY 273 mosm/kg (275-300); CALCIUM 8.5 mg/dL (8.5-10.1); CARBON DIOXIDE 31.9 mmol/L (21.0-32.0); CHLORIDE - SERUM 97 mmol/L (98-107); CREATININE - SERUM 1.3 mg/dL (0.6-1.3); POTASSIUM - SERUM 3.6 mmol/L (3.5-5.1); SODIUM 135 mmol/L (136-145); UREA NITROGEN 21 mg/dL (7-18); eGFR NON AFRICAN AMERICAN 59 mL/min (90-120)
[2019-07-16 16:08] LABS: GLUCOSE 113 mg/dL (74-106)
[2019-07-16 16:24] LABS: ALBUMIN 2.9 g/dL (3.4-5.0); ALKALINE PHOSPHATASE 107 U/L (30-120); ALT (SGPT) 20 U/L (10-68); BILIRUBIN - TOTAL 2.46 mg/dL (0.2-1.3); CKMB 1.8 U/L (0.0-3.6); CREATINE KINASE 67 UL (21-232); MAGNESIUM - SERUM 1.8 mg/dL (1.8-2.4); PRO BNP 4650 pg/mL (0-125); PROTEIN - SERUM 7.2 g/dL (6.4-8.2)
[2019-07-16 16:29] LABS: TROPONIN-I 0.127 ng/mL (0.000-0.060)
[2019-07-16 17:33] LABS: NITRITE NEGATIVE (NEGATIVE)
[2019-07-16 17:34] LABS: BILIRUBIN NEGATIVE (NEGATIVE); GLUCOSE 500 mg/dL (NEGATIVE); KETONE NEGATIVE (NEGATIVE); UROBILINOGEN NORMAL (NORMAL)
[2019-07-16 17:44] VITALS: BP 120/76
[2019-07-16 20:00] VITALS: BP 103/77
--- NOTE | 2019-07-16 21:31 | NUR ---
PT ARRIVED BY STRETCHER. AAOX3, AFVSS, NO S/S OF RT DISTRESS. RR EVEN AND UNLABORED. 2L NC 02SAT 90. DRESSING ON BOTH FOOT NOTED. REDDENED COCCYX. NOTIFIED SOCIAL MEDIA PROJECT MANAGER ABOUT TELE ORDER. NO TELE AVAILABLE AT THIS TIME. FSBS 105. NOT TREATED PER SLIDING SCALE. TURKEY SANDWICH PROVIDED TO PT. PT ORIENTED TO ROOM. PT VERBALIZED UNDERSTANDING. CL WITHIN REACH, BED IN LOW, SR UP X2. WILL CTM.
[2019-07-16 21:37] VITALS: BP 103/77; BMI 36.6
[2019-07-16 22:15] LABS: CKMB 4.7 U/L (0.0-3.6); CREATINE KINASE 170 UL (21-232); TROPONIN-I 0.636 ng/mL (0.000-0.060)
--- NOTE | 2019-07-16 23:52 | NUR ---
ON ASSESSMENT, PT'S BP 84/39, 74/40, 80/42. ALTHOUGH, PT ASSYMPTOMATIC, DENIES ANY WEAKNESS OR LIGHTHEADEDNESS. NOTIFIED CHARGE NURSE AND RECRUITING TEAM LEAD APPLICATION SUPPORT INTERN ABOUT PT'S BP. RECRUITING TEAM LEAD STATES TO PLACE ON CONTINOUS VITAL SIGN MONITOR AND NOTIFY HIM IFN PT'S SBP DROPS TO THE 70'S. PT ACCIDENTALLY PULLED OUT PIV. LITTLE BLEEDING NOTED. APPLIED GAUZE AND TAPED. PT DENIES ANY FURTHER NEEDS AT THIS TIME. WILL CTM.
[2019-07-17 04:32] LABS: BASOPHILS 0.1 % (0-2); EOSINOPHILS 0 % (0-7); HEMATOCRIT 36.9 % (42.0-54.0); HEMOGLOBIN 11.9 g/dL (13.5-17.5); IMMATURE GRANULOCYTES 0.9 % (0-5); LYMPHOCYTES 15.6 % (15-50); MCH 27.4 pg (26.0-34.0); MCHC 32.2 g/dL (31.0-37.0); MCV 84.8 fL (80.0-100.0); MEAN PLATELET VOLUME 10.8 fL (7.4-10.4); MONOCYTES 6.7 % (2-11); NEUTROPHILS 76.7 % (40-80); PLATELET COUNT 174 10x3/uL (130-400); RBC 4.35 10x6/uL (4.20-6.10); RDW 16.3 % (11.5-14.5)
--- NOTE | 2019-07-17 04:45 | NUR ---
PT HAD 1 EPISODE OF DIARRHEA. HELP CLEANED PT UP. PROVIDED FRESH GOWNS AND LINENS. PT VOICED THANKS.
[2019-07-17 04:48] LABS: WBC 11.9 10x3/uL (4.8-10.8)
[2019-07-17 05:06] LABS: ALBUMIN 2.4 g/dL (3.4-5.0); ALKALINE PHOSPHATASE 89 U/L (30-120); ALT (SGPT) 19 U/L (10-68); BILIRUBIN - TOTAL 1.58 mg/dL (0.2-1.3); CALCIUM 8.4 mg/dL (8.5-10.1); CARBON DIOXIDE 33.9 mmol/L (21.0-32.0); CHLORIDE - SERUM 101 mmol/L (98-107); CKMB 3.4 U/L (0.0-3.6); CREATINE KINASE 222 UL (21-232); CREATININE - SERUM 1.1 mg/dL (0.6-1.3); MAGNESIUM - SERUM 1.8 mg/dL (1.8-2.4); POTASSIUM - SERUM 3.6 mmol/L (3.5-5.1); PROTEIN - SERUM 6.2 g/dL (6.4-8.2); SODIUM 139 mmol/L (136-145); UREA NITROGEN 25 mg/dL (7-18); eGFR NON AFRICAN AMERICAN 71 mL/min (90-120)
[2019-07-17 05:11] LABS: CALC OSMOLALITY 289 mosm/kg (275-300); GLUCOSE 240 mg/dL (74-106); TROPONIN-I 0.552 ng/mL (0.000-0.060)
[2019-07-17 09:00] VITALS: BP 109/80
[2019-07-17 10:08] LABS: CKMB 2.9 U/L (0.0-3.6); CREATINE KINASE 260 UL (21-232); TROPONIN-I 0.392 ng/mL (0.000-0.060)
[2019-07-17 12:00] VITALS: BP 119/57
--- NOTE | 2019-07-17 12:01 | NUR ---
PT HAS A CHRONIC ULCER ON RIGHT MEDIAL FOOT AND RIGHT MEDIAL GREAT TOE. LEFT TOES HAVE BEEN AMPUTATED AND THERE IS A 0.5CM X 1CM CHRONIC ULCER ON AMPUTATION SITE. RECOMMENDED CLEANING ALL WOUNDS WITH BETADINE, COVERING WITH DRY 4X4S AND SECURING WITH KERLIX. WOUND CARE MONITORING.
[2019-07-17 13:27] VITALS: Ht 188 cm; Wt 129.3 kg
--- NOTE | 2019-07-17 17:56 | NUR ---
I have reviewed this patient and I concur with the Shift Assessment completed by the Licensed Practical Nurse today this shift.
[2019-07-17 21:17] VITALS: BP 94/53
--- NOTE | 2019-07-17 22:21 | NUR ---
EVENING ROUNDS COMPLETED. AFVSS, AAOX3, FSBS 198. TREATED PER SLIDING SCALE. HELD SOTALOL AT THIS TIME. DUE TO HR OF 55. WILL REASSESS. PT DENIES ANY FURTHER NEEDS AT THIS TIME. WILL CPOC. CL WITHIN REACH, BED IN LOW, SR UP X2.
[2019-07-18 00:31] VITALS: BP 108/40
[2019-07-18 04:00] VITALS: BP 111/58
[2019-07-18 06:32] LABS: BASOPHILS 0.1 % (0-2); EOSINOPHILS 0.6 % (0-7); HEMATOCRIT 38.5 % (42.0-54.0); HEMOGLOBIN 12.3 g/dL (13.5-17.5); IMMATURE GRANULOCYTES 0.8 % (0-5); LYMPHOCYTES 15.1 % (15-50); MCH 27.6 pg (26.0-34.0); MCHC 31.9 g/dL (31.0-37.0); MCV 86.3 fL (80.0-100.0); MONOCYTES 6.5 % (2-11); NEUTROPHILS 76.9 % (40-80); PLATELET COUNT 177 10x3/uL (130-400); RBC 4.46 10x6/uL (4.20-6.10); RDW 16.4 % (11.5-14.5); WBC 11.4 10x3/uL (4.8-10.8)
--- NOTE | 2019-07-18 06:45 | NUR ---
CONSENT SIGNED. PT PREP'D AND CLIP'D READY FOR PROCEDURE.
[2019-07-18 06:55] LABS: CALC OSMOLALITY 283 mosm/kg (275-300); CALCIUM 8.5 mg/dL (8.5-10.1); CARBON DIOXIDE 35.5 mmol/L (21.0-32.0); CHLORIDE - SERUM 98 mmol/L (98-107); GLUCOSE 167 mg/dL (74-106); MAGNESIUM - SERUM 1.5 mg/dL (1.8-2.4); PHOSPHOROUS 3.6 mg/dL (2.5-4.9); POTASSIUM - SERUM 3.1 mmol/L (3.5-5.1); SODIUM 139 mmol/L (136-145); UREA NITROGEN 17 mg/dL (7-18); eGFR NON AFRICAN AMERICAN 80 mL/min (90-120)
[2019-07-18 08:04] VITALS: BP 124/57
--- NOTE | 2019-07-18 11:28 | NUR ---
PT RETURNED FROM [employer]UEST SERVICES ASSOCIATE. RIGHT RADIAL IS C/D/I WITH NO S/S OF HEMATOMA PRESENT. NS INFUSING @200ML/HR. NO S/S OF DISTRESS NOTED. PT DENIES ANY NEEDS. WILL CTM.
[2019-07-18 12:34] VITALS: BP 132/62
--- NOTE | 2019-07-18 12:55 | NUR ---
I have reviewed this patient and I concur with the Shift Assessment completed by the Licensed Practical Nurse today this shift.
[2019-07-18] MEDS ORDERED: BETAPACE 80 MG80 MG PO (14:31)
--- NOTE | 2019-07-18 16:31 | NUR ---
PT DISCHARGED HOME VIA WHEELCHAIR WITH FAMILY. PIV REMOVED WITH CATHETER TIP FULLY INTACT. TELEMETRY REMOVED AND RETURNED. PT SIGNED PROPER DISCHARGE INSTRUCTIONS AND REMOVED ALL VALUABLES FROM THE ROOM.
--- NOTE | 2019-07-18 17:16 | MORECARE ---
CASE MANAGEMENT DISCHARGE SUMMARY PATIENT: YAZAN ANAYA UNIT: [id number] ADM DATE: 07/16/19 AGE: 63 : 53 SEX: M ROOM/BED: D.2103 AUTHOR: KIMBERLEY,DOC PHYSICIAN: REFERRING PHYSICIAN: JONH RIVERA MD DATE OF SERVICE: 07/18/19 Discharge Plan Patient Name: YAZAN NAAYA Facility: [facility]:[place] : 1955 Planned Disposition: Home with Home Health Anticipated Discharge Date: 07/18/19 Discharge Date: 07/18/2019 Expected LOS: 2 Initial Reviewer: [email or web address] Initial Review Date: 07/18/2019 Generated: 07/18/19 6:15 pm Comments DCP- Discharge Planning Updated by [email or web address]: Yazan Oconnell on 07/18/19 4:[address] Patient Name: YAZAN ANAYA Admission Status: ER Accout number: [id number] Admission Date: 07-16-2019 : 1955 Admission Diagnosis: Attending: MONIQUE RIVERA Current LOS: 2 Anticipated DC Date: 07-18-2019 Planned Disposition: Home with Home Health Primary Insurance: MEDICAID [place] PLANNED EXTERNAL PROVIDER: [facility] Discharge Planning Comments: CM MET WITH PT IN ROOM TO DISCUSS DISCHARGE PLANNING AND NEEDS. PT REPORTS LIVING AT HOME INDEPENDENTLY AND ALONE. PT HAS PERSONAL CARE SERVICES WITH ALL AGES MWF, 9AM TO NOON. CM DISCUSSED AVAILABILITY OF REHAB AND MEDICAL EQUIPMENT. PT DENIES DISCHARGE NEEDS, REPORTS A FRIEND WILL PICK HIM UP FOR DISCHARGE HOME. Windows Security Analyst: Yazan Oconnell DCPIA - Discharge Planning Initial Assessment Updated by [email or web address]: Yazan Oconnell on 07/18/19 5:11 pm * Is the patient Alert and Oriented? Yes * How many steps to enter\exit or inside your home? NONE * PCP DR. MCINTYRE * [facility] * Preadmission Environment Home Alone * ADLs Partial Dependent * Partial ADLs (Assistance needed) Ambulation Bathing * Equipment CPAP Glucometer Nebulizer Oxygen Power Chair or Electric Scooter Wheelchair * Other Equipment HOME AND PORTABLE OXYGEN, FAROESE HOME PATIENT * List name and contact numbers for known caregivers / representatives who currently or will assist patient after discharge: GELA HENDERSON, * Verbal permission to speak to the caregivers and representatives has been obtained from the patient. N/A * Community resources currently utilized None * Please name any agencies selected above. NONE * Additional services required to return to the preadmission environment? No * Can the patient safely return to the preadmission environment? Yes * Has this patient been hospitalized within the prior 30 days at any hospital? Yes External Providers External Provider: [facility] Next Contact Date: 07/18/2019 Service Request Date: Service Type: Resolution: Reviewer: Comments: Patient Name: YAZAN ANAYA Page 12121 at 1716 All edits/amendments must be made on the electronic document DICTATION DATE: 07/18/191714 DRIER HELPER: JUSTIN 07/18/191714 RPT#: [id number] DC DATE:07/18/19 STATUS: DIS IN [facility] [address] [place] [address] END OF REPORT
== END 2019-07-18 16:32 | disposition home or self-care (01) | DRG 280 ==
LOC: D.ER 15:13 → D.M2 19:59
PROVIDERS: Family Medicine; Internal Medicine Interventional Cardiology; ADMIT Emergency Medicine; ATTEND Emergency Medicine
PROC: 4A023N7 Measurement of Cardiac Sampling and Pressure, Left Heart, Percutaneous Approach (ICD-10-PCS; 2019-07-18)
PROC: B2151ZZ Fluoroscopy of Left Heart using Low Osmolar Contrast (ICD-10-PCS; principal; 2019-07-18 10:20)
DX: I48.0 Paroxysmal atrial fibrillation (principal); I50.33 Acute on chronic diastolic (congestive) heart failure; I21.A1 Myocardial infarction type 2; E87.1 Hypo-osmolality and hyponatremia; F17.213 Nicotine dependence, cigarettes, with withdrawal; I11.0 Hypertensive heart disease with heart failure; J84.10 Pulmonary fibrosis, unspecified; I71.2 Thoracic aortic aneurysm, without rupture; J44.9 Chronic obstructive pulmonary disease, unspecified; I25.10 Atherosclerotic heart disease of native coronary artery without angina pectoris; E11.9 Type 2 diabetes mellitus without complications; E66.9 Obesity, unspecified; Z68.36 Body mass index [BMI] 36.0-36.9, adult; I48.91 Unspecified atrial fibrillation

== ENCOUNTER 2019-08-04 16:15 | Inpatient (IN) | payer MEDICAID ==
[~2019-08-04] VITALS: Ht 188 cm; Wt 113.7 kg
--- NOTE | 2019-08-04 16:22 | NUR ---
PATIENT WEARS 4L O2 NC AT ALL TIMES AT HOME.
[2019-08-04 16:51] LABS: BASOPHILS 0.2 % (0-2); EOSINOPHILS 0 % (0-7); HEMATOCRIT 42.4 % (42.0-54.0); HEMOGLOBIN 13.7 g/dL (13.5-17.5); IMMATURE GRANULOCYTES 0.2 % (0-5); LYMPHOCYTES 14.8 % (15-50); MCH 29.2 pg (26.0-34.0); MCHC 32.3 g/dL (31.0-37.0); MCV 90.4 fL (80.0-100.0); MEAN PLATELET VOLUME 10.5 fL (7.4-10.4); MONOCYTES 7.6 % (2-11); NEUTROPHILS 77.2 % (40-80); PLATELET COUNT 246 10x3/uL (130-400); RBC 4.69 10x6/uL (4.20-6.10); WBC 13.2 10x3/uL (4.8-10.8)
[2019-08-04 16:54] LABS: BILIRUBIN NEGATIVE (NEGATIVE); GLUCOSE NEGATIVE (NEGATIVE); KETONE SMALL mg/dL (NEGATIVE); NITRITE POSITIVE (NEGATIVE); SPECIFIC GRAVITY 1.005 (1.005-1.020); UROBILINOGEN NORMAL (NORMAL)
[2019-08-04 16:55] LABS: BACTERIA MANY /hpf (NEGATIVE); RED CELLS - URINE RARE /hpf (0-5)
[2019-08-04 16:57] LABS: CALC OSMOLALITY 272 mosm/kg (275-300); CALCIUM 9.1 mg/dL (8.5-10.1); CHLORIDE - SERUM 94 mmol/L (98-107); CREATININE - SERUM 1.1 mg/dL (0.6-1.3); GLUCOSE 189 mg/dL (74-106); POTASSIUM - SERUM 4.3 mmol/L (3.5-5.1); SODIUM 134 mmol/L (136-145); UREA NITROGEN 12 mg/dL (7-18); eGFR NON AFRICAN AMERICAN 71 mL/min (90-120)
[2019-08-04 17:12] LABS: ALBUMIN 2.8 g/dL (3.4-5.0); ALKALINE PHOSPHATASE 105 U/L (30-120); BILIRUBIN - TOTAL 1.71 mg/dL (0.2-1.3); CKMB 0.2 U/L (0.0-3.6); CREATINE KINASE 35 UL (21-232); MAGNESIUM - SERUM 1.8 mg/dL (1.8-2.4); PRO BNP 4445 pg/mL (0-125); PROTEIN - SERUM 8.1 g/dL (6.4-8.2)
[2019-08-04 17:14] LABS: ALT (SGPT) < 10 U/L (10-68); TROPONIN-I < 0.017 ng/mL (0.000-0.060)
--- NOTE | 2019-08-04 17:34 | NUR ---
RANDA BANDAGES TO LYNDSEY LOWER EXTREMETIES. PT REPORTS BEING CARED FOR BY WOUND CARE.
[2019-08-04 17:35] VITALS: BP 148/78
--- NOTE | 2019-08-04 17:48 | NUR ---
TEMP 100.7 AFTER TYLENOL, PT RESTING, REPORTS BREATHING EASIER, SAT 92 ON 4LPM
--- NOTE | 2019-08-04 18:52 | NUR ---
PATIENT ADMITTED FROM ER, TRANSFERED FROM STRETCHER TO BED. PATIENT ADMITTED FOR PNEUMONIA. SHORTNESS OF BREATH WITH ANY ACTIVITY. 02 4L NC, HYGEINE CARE PROVIDED. ORIENTED TO ROOM. CL IN REACH.
--- NOTE | 2019-08-04 19:00 | NUR ---
REPORT RECEIVED. BEDSIDE SHIFT REPORT COMPLETE. PT IN BED RR EVEN AND UNLABORED. AFEBRILE AT THIS TIME. RR EVEN AND UNLABORED ON 4L. NO S/SX OF DISTRESS OBSERVED. CALL LIGHT IN REACH. WILL CTM.
[2019-08-04 20:00] VITALS: BP 110/65
[2019-08-05] VITALS (19 sets, daily range): BP systolic 90–148; BP diastolic 57–99; BMI 30.8
--- NOTE | 2019-08-05 08:34 | NUR ---
WITH VITALS PT'S PULSE OX 78%. RT IN ROOM AND PLACED ON 15 LITERS HIGH FLOW. PULSE OX NOW 94%. ABG'S RAN AND RESULTED, RT RECOMMENDS BIPAP. JASMIN CALDERON NOTIFIED AND ORDERS RECEIVED FOR BIPAP AND STATES SHE WILL CONSULT PULMONOLOGY.
--- NOTE | 2019-08-05 11:20 | NUR ---
REPORT CALLED TO ICU, PT TRANSFERRED TO BED 2306 ON NON RE-BREATHER.
--- NOTE | 2019-08-05 12:15 | NUR ---
PT RECEIVED TO 2313. INITIALLY ON COVID PRECAUTIONS. BRONCH DONE BY DR SHAH. PT INTUBATED WITH [address] SY[address] NG [address]AC[address] SHAH THEN DECIDED PT DID NOT NEED TO BE ON COVID PRECAUTIONS. STATES IT'S PNEUMONIA. PROPOFOL STARTED. VSS. WILL CONTINUE TO MONITOR.
--- NOTE | 2019-08-05 13:13 | NUR ---
VERGARA PLACED. PT INCONTINENT OF BOWEL. LINENS CHANGED AND PT CLEANED.
--- NOTE | 2019-08-05 14:02 | NUR ---
PT'S CELL PHONE TAKEN TO ICU AND PLACED IN ROOM, STAFF NOTIFIED.
--- NOTE | 2019-08-05 14:24 | NUR ---
Pt has chronic nonhealing wounds on both feet. Right medial foot has wound 2cm x 2cm x 0.2cm. Right medial great toe has wound 2cm x 1.5 and left foot has wound measuring 1cm x 2cm. Bottom and perineal area are excoriated. Recommendations: Wounds on feet: clean, dry and cover with adaptic, 4x4s and wrap with kerlix Bottom/mike: calmoseptine cream -Turn/reposition q 2 hours -Bridge/float heels Wound care will continue monitoring.
[2019-08-05 15:44] LABS: MACROPHAGES BF 13 %; MESOTHELIALS BF 1 %; NEUT - BF 77 %
[2019-08-05 15:47] LABS: MACROPHAGES BF 9 %; MESOTHELIALS BF 1 %; NEUT - BF 89 %
[2019-08-05 16:58] LABS: HEMATOCRIT 42.5 % (42.0-54.0); HEMOGLOBIN 13.2 g/dL (13.5-17.5); LYMPHOCYTES 15.1 % (15-50); MCH 27.9 pg (26.0-34.0); MCHC 31.1 g/dL (31.0-37.0); MCV 89.9 fL (80.0-100.0); MEAN PLATELET VOLUME 10.6 fL (7.4-10.4); NEUTROPHILS 74.1 % (40-80); RBC 4.73 10x6/uL (4.20-6.10); RDW 17.6 % (11.5-14.5); WBC 11.5 10x3/uL (4.8-10.8)
[2019-08-05 17:02] LABS: PLATELET COUNT 195 10x3/uL (130-400)
--- NOTE | 2019-08-05 17:13 | NUR ---
PT RESTING IN BED, VSS AND WNL. ETT SECURED, NO SIGNS OF DISTRESS NOTED. WILL CONT TO FOLLOW POC
[2019-08-05 17:42] LABS: CALC OSMOLALITY 276 mosm/kg (275-300); CALCIUM 8.6 mg/dL (8.5-10.1); CARBON DIOXIDE 36.3 mmol/L (21.0-32.0); CHLORIDE - SERUM 97 mmol/L (98-107); CREATININE - SERUM 0.9 mg/dL (0.6-1.3); GLUCOSE 156 mg/dL (74-106); POTASSIUM - SERUM 3.9 mmol/L (3.5-5.1); SODIUM 137 mmol/L (136-145); UREA NITROGEN 13 mg/dL (7-18); eGFR NON AFRICAN AMERICAN 90 mL/min (90-120)
--- NOTE | 2019-08-05 18:06 | NUR ---
20G PIV INSERTED X1 ATTEMPT TO RIGHT WRIST. IV ANTIBIOTICS STARTED. WILL CONT TO FOLLOW POC
--- NOTE | 2019-08-05 18:59 | MORECARE ---
CASE MANAGEMENT DISCHARGE SUMMARY PATIENT: YAZAN ANAYA UNIT: [id number] ADM DATE: 08/04/19 AGE: 63 : 53 SEX: M ROOM/BED: D.2306 AUTHOR: SB CHU PHYSICIAN: REFERRING PHYSICIAN: ABBY ROCK MD DATE OF SERVICE: 08/05/19 Discharge Plan Patient Name: [facility]AN [facility] [facility] 1955 Planned Disposition: Anticipated Discharge Date: Discharge Date: Expected LOS: Initial Reviewer: [email or web address] Initial Review Date: 08/04/2019 Generated: 08/05/19 7:59 pm Comments DCP- Discharge Planning Updated by SANIYA: Serenity Fink on 08/05/19 5:[address] Patient is sedated on vent and no family available at this time. CM will continue to follow and assist as needed with discharge planning / needs. DCPIA - Discharge Planning Initial Assessment Updated by [email or web address]: Serenity Fink on 08/05/19 6:52 pm * Is the patient Alert and Oriented? No * How many steps to enter\exit or inside your home? Patient Name: YAZAN ANAYA Page [phone] at 1859 All edits/amendments must be made on the electronic document DICTATION DATE: 08/05/191858 SINGING MESSENGER: JUSTIN 08/05/191858 RPT#: [id number] DC DATE: STATUS: ADM IN [facility] [address] [place] [address] END OF REPORT
--- NOTE | 2019-08-05 19:00 | NUR ---
SHIFT ASSESSMENT COMPLETED. PT CARE ASSUMED. MONITORS ON AND WORKING, VITALS STABLE, VENT SETTINGS NOTED. VERGARA CATH STAT LOCKED IN PLACE. PT TEMP 102, REC'D ORDERS FOR TYLENOL. SEE FLOW SHEET FOR FURTHER DETAILS. WILL CONTINUE TO OBSERVE.
--- NOTE | 2019-08-05 19:30 | NUR ---
BLISTER TO LEFT HEEL NOTED. CLEANED RIGHT FOOT WOUND PER ORDERS. HEELS FLOATED.
--- NOTE | 2019-08-05 23:00 | NUR ---
PT TURNED AND REPOSITIONED FOR COMFORT, MONITORS ON AND WORKING, ORAL CARE PROVIDED AT THIS TIME WELL. TEMP RESOLVED WITH TYELNOL. SEE FLOW SHEET FOR FURTHER DETAILS. WILL CONTINUE TO OBSERVE.
--- NOTE | 2019-08-05 23:00 | NUR ---
MONITORS ON AND WORKING, PT REQUIRES FREQUENT SUCTIONING, PT TURNED AND REPOSITIONED FOR COMFORT. SEE FLOW SHEET FOR FURTHER DETAILS. WILL CONTINUE TO OBSERVE.
[2019-08-06] VITALS (24 sets, daily range): BP systolic 83–122; BP diastolic 50–77
--- NOTE | 2019-08-06 01:00 | NUR ---
PT TURNED AND REPOSITONED FOR COMFORT, MONITORS ON AND WORKING, NO OTHER CHANGES AT THIS TIME, VITALS STABLE, WILL CONTINUE TO OBSERVE.
--- NOTE | 2019-08-06 03:00 | NUR ---
PT TURNED AND REPOSITIONED FOR COMFORT, MONITORS ON AND WORKING, VITALS STABLE, CHG BATH AND ORAL CARE DONE AT THIS TIME. LINEN CHANGE DONE. SEE FLOW SHEET FOR FURTHER DETAILS.
[2019-08-06 06:38] LABS: CALC OSMOLALITY 270 mosm/kg (275-300); CALCIUM 8.4 mg/dL (8.5-10.1); CARBON DIOXIDE 32.1 mmol/L (21.0-32.0); CHLORIDE - SERUM 94 mmol/L (98-107); CREATININE - SERUM 0.8 mg/dL (0.6-1.3); GLUCOSE 159 mg/dL (74-106); POTASSIUM - SERUM 3.5 mmol/L (3.5-5.1); SODIUM 134 mmol/L (136-145); UREA NITROGEN 13 mg/dL (7-18); eGFR NON AFRICAN AMERICAN > 90 mL/min (90-120)
[2019-08-06 07:00] LABS: HEMATOCRIT 39.1 % (42.0-54.0); HEMOGLOBIN 12.1 g/dL (13.5-17.5); LYMPHOCYTES 7.6 % (15-50); MCH 27.7 pg (26.0-34.0); MCHC 30.9 g/dL (31.0-37.0); MCV 89.5 fL (80.0-100.0); MEAN PLATELET VOLUME 11.3 fL (7.4-10.4); NEUTROPHILS 81.1 % (40-80); PLATELET COUNT 161 10x3/uL (130-400); RBC 4.37 10x6/uL (4.20-6.10); RDW 17.6 % (11.5-14.5); WBC 11.5 10x3/uL (4.8-10.8)
--- NOTE | 2019-08-06 07:00 | NUR ---
PT RESTING IN BED, VSS AND WNL. ETT SECURED. NO SIGNS OF DISTRESS NOTED AT THIS TIME. VERGARA CATHETER DRAINING DARK URINE FREELY WITH NO LOOPS. BED ALARM ON. CALL LIGHT WITHIN REACH, WILL CONT TO FOLLOW POC
--- NOTE | 2019-08-06 09:15 | NUR ---
PT RESTING IN BED, VSS. HERE AND NEW ORDERS RECIEVED TO CONSULT DIETARY FOR TF MANAGEMENT. ORAL CARE PROVIDED. PT REPOSITIONED. NO SIGNS OF DISTRESS NOTED. BED ALARM ON. WILL CONT TO FOLLOW POC
--- NOTE | 2019-08-06 12:00 | NUR ---
PT RESTING IN BED, VSS AND WNL. NO SIGNS OF DISTRESS NOTED. BED ALARM ON. WRIST RESTRAINTS IN PLACE. WILL CONT TO FOLLOW POC
--- NOTE | 2019-08-06 12:07 | NUR ---
Nutrition follow-up: Recieved consult to start TF 2/2 pt intubated at this time. Labs reviewed; Glucose elevated Wt: 273# Pt now intubated, sedated with propofol @ 18.5 ml/hr RDN will order Glucerna 1.0 shade to start @ 25 ml/hr with gradual increase to goal rate of 75 ml/hr. Flush with 125 ml H2O q 4 hours Thank you for the consult. RDN following.
--- NOTE | 2019-08-06 13:05 | MORECARE ---
CASE MANAGEMENT DISCHARGE SUMMARY PATIENT: YAZAN ANAYA UNIT: [id number] ADM DATE: 08/04/19 AGE: 63 : 53 SEX: M ROOM/BED: D.2306 AUTHOR: SB CHU PHYSICIAN: REFERRING PHYSICIAN: ABBY ROCK MD DATE OF SERVICE: 08/06/19 Discharge Plan Patient Name: [facility]AZAN ANAYA [facility] [facility] 1955 Planned Disposition: Home with Home Health Anticipated Discharge Date: Discharge Date: Expected LOS: Initial Reviewer: [email or web address] Initial Review Date: 08/04/2019 Generated: 08/06/19 2:04 pm Comments DCP- Discharge Planning Updated by SANIYA: Serenity Fink on 08/05/19 5:[address] Patient is sedated on vent and no family available at this time. CM will continue to follow and assist as needed with discharge planning / needs. DCPIA - Discharge Planning Initial Assessment Updated by SANIYA: Serenity Fink on 08/05/19 6:52 pm * Is the patient Alert and Oriented? No * How many steps to enter\exit or inside your home? Last DP export: 08/05/19 5:59 p Patient Name: YAZAN ANAYA Page [phone] at 1305 All edits/amendments must be made on the electronic document DICTATION DATE: 08/06/19 1304 WASHING TUB OPERATOR: JUSTIN 08/06/19 1304 RPT#: [id number] DC DATE: STATUS: ADM IN [facility] [address] [place] [address] END OF REPORT
--- NOTE | 2019-08-06 14:02 | MORECARE ---
CASE MANAGEMENT DISCHARGE SUMMARY PATIENT: YAZAN ANAYA UNIT: [id number] ADM DATE: 08/04/19 AGE: 63 : 53 SEX: M ROOM/BED: D.2306 AUTHOR: SB CHU PHYSICIAN: REFERRING PHYSICIAN: ABBY ROCK MD DATE OF SERVICE: 08/06/19 Discharge Plan Patient Name: YAZAN ANAYA [facility] [facility] 1955 Planned Disposition: Home with Home Health Anticipated Discharge Date: Discharge Date: Expected LOS: Initial Reviewer: [email or web address] Initial Review Date: 08/04/2019 Generated: 08/06/19 3:02 pm Comments DCP- Discharge Planning Updated by SANIYA: Serenity Fink on 08/05/19 5:[address] Patient is sedated on vent and no family available at this time. CM will continue to follow and assist as needed with discharge planning / needs. DCPIA - Discharge Planning Initial Assessment Updated by [email or web address]: Serenity Fink on 08/05/19 6:52 pm * Is the patient Alert and Oriented? No * How many steps to enter\exit or inside your home? Last DP export: 08/06/19 12:05 p Patient Name: YAZAN ANAYA Page [phone] at 1402 All edits/amendments must be made on the electronic document DICTATION DATE: 08/06/19 1401 MATERIAL LIAISON: JUSTIN 08/06/19 1401 RPT#: [id number] DC DATE: STATUS: ADM IN [facility] [address] [place] [address] END OF REPORT
--- NOTE | 2019-08-06 14:11 | MORECARE ---
CASE MANAGEMENT DISCHARGE SUMMARY PATIENT: YAZAN ANAYA UNIT: [id number] ADM DATE: 08/04/19 AGE: 63 : 53 SEX: M ROOM/BED: D.2306 AUTHOR: SB CHU PHYSICIAN: REFERRING PHYSICIAN: ABBY ROCK MD DATE OF SERVICE: 08/06/19 Discharge Plan Patient Name: YAZAN ANAYA Facility: [facility]:[place] : 1955 Planned Disposition: Home with Home Health Anticipated Discharge Date: Discharge Date: Expected LOS: Initial Reviewer: [email or web address] Initial Review Date: 08/04/2019 Generated: 08/06/19 3:11 pm Comments DCP- Discharge Planning Updated by [email or web address]: Serenity Fink on 08/05/19 5:[address] Patient is sedated on vent and no family available at this time. CM will continue to follow and assist as needed with discharge planning / needs. DCPIA - Discharge Planning Initial Assessment Updated by [email or web address]: Serenity Fink on 08/06/19 2:03 pm * Is the patient Alert and Oriented? No * How many steps to enter\exit or inside your home? * PCP [facility] * [facility] * Preadmission Environment Home with Family * ADLs Independent * Equipment Power Chair or Electric Scooter * Other Equipment CPAP, GLUCOMETER, NEBULIZER , W/C, HOME/PORTABLE [address] [place] [address] HOME PATIENT * List name and contact numbers for known caregivers / representatives who currently or will assist patient after discharge: JASE BRAY, DEESIN, * Verbal permission to speak to the caregivers and representatives has been obtained from the patient. Yes * Community resources currently utilized None * Additional services required to return to the preadmission environment? No * Can the patient safely return to the preadmission environment? Yes * Has this patient been hospitalized within the prior 30 days at any hospital? Yes Last DP export: 08/06/19 1:02 p Patient Name: YAZAN ANAYA Page [phone] at 1411 All edits/amendments must be made on the electronic document DICTATION DATE: 08/06/19 1411 OIL AND GAS WELL TREATMENT OPERATOR: JUSTIN 08/06/19 1411 RPT#: [id number] DC DATE: STATUS: ADM IN [facility] [address] [place] [address] END OF REPORT
--- NOTE | 2019-08-06 14:19 | MORECARE ---
CASE MANAGEMENT DISCHARGE SUMMARY PATIENT: YAZAN ANAYA UNIT: [id number] ADM DATE: 08/04/19 AGE: 63 : 53 SEX: M ROOM/BED: D.2306 AUTHOR: KIMBERLEY,DOC PHYSICIAN: REFERRING PHYSICIAN: ABBY ROCK MD DATE OF SERVICE: 08/06/19 Discharge Plan Patient Name: YAZAN ANAYA Facility: [facility]:[place] : 1955 Planned Disposition: Home with Home Health Anticipated Discharge Date: Discharge Date: Expected LOS: Initial Reviewer: [email or web address] Initial Review Date: 08/04/2019 Generated: 08/06/19 3:19 pm Comments DCP- Discharge Planning Updated by [email or web address]: Serenity Fink on 08/06/19 1:[address] Patient Name: YAZAN ANAYA Admission Status: ER Accout number: [id number] Admission Date: 08-04-2019 : 1955 Admission Diagnosis: Attending: ABBY ROCK Current LOS: 2 Anticipated DC Date: Planned Disposition: Home with Home Health Primary Insurance: MEDICAID [place] Discharge Planning Comments: CM contacted Ernestine Schwab listed as patient's contact since patient is currently on vent and sedated CM spoke with Ernestine after explaining CM role and obtaining verbal consent. Patient lives at home alone where he is independent with his care and plans to return there upon discharge. CM asked Ernestine if she was patient's POA or if he had one assigned and she stated that as far as she knows he doesn't have a POA. She states as far as family it is her another cousin and a brother that is estranged. CM discussed availability / needs of home health and medical equipment. Ernestine wishes for patient to resume K[facility] and personal care with [facility] upon discharge EFE signed. Ernestine denies any discharge needs at this time. CM will continue to follow and assist as needed with discharge planning / needs. Assembler Piano: Serenity Fink DCP- Discharge Planning Updated by [email or web address]: Serenity Fikn on 08/05/19 5:[address] Patient is sedated on vent and no family available at this time. CM will continue to follow and assist as needed with discharge planning / needs. DCPIA - Discharge Planning Initial Assessment Updated by [email or web address]: Serenity Fink on 08/06/19 2:03 pm * Is the patient Alert and Oriented? No * How many steps to enter\exit or inside your home? * PCP FRANCISCO JAVIER * [facility] * Preadmission Environment Home with Family * ADLs Independent * Equipment Power Chair or Electric Scooter * Other Equipment CPAP, GLUCOMETER, NEBULIZER , W/C, HOME/PORTABLE [address] [facility] HOME PATIENT * List name and contact numbers for known caregivers / representatives who currently or will assist patient after discharge: GELA [place], * Verbal permission to speak to the caregivers and representatives has been obtained from the patient. Yes * Community resources currently utilized None * Additional services required to return to the preadmission environment? No * Can the patient safely return to the preadmission environment? Yes * Has this patient been hospitalized within the prior 30 days at any hospital? Yes Last DP export: 08/06/19 1:11 p Patient Name: YAZAN ANAYA Page [phone] at 1419 All edits/amendments must be made on the electronic document DICTATION DATE: 08/06/19 141 RN ICU: JUSTIN 08/06/19 141 RPT#: [id number] DC DATE: STATUS: ADM IN [facility] [address] [place] [address] END OF REPORT
--- NOTE | 2019-08-06 15:00 | NUR ---
PT RESTING IN BED, VSS AND WNL. ETT SECURED. BED ALARM ON. VERGARA DRAINING FREELY WITH NO LOOPS. PT REPOSITIONED. WILL CONT TO FOLLOW POC
[2019-08-06 16:08] LABS: AFB SPECIMEN PROCESSING Concentration (())
--- NOTE | 2019-08-06 18:08 | NUR ---
PT RESTING IN BED, VSS AND WNL. BED ALARM ON. NO SIGNS OF DISTRESS NOTED. WILL CONT TO FOLLOW POC
--- NOTE | 2019-08-06 19:00 | NUR ---
SHIFT ASSESSMENT COMPLETED. PT CARE ASSUMED. MONITORS ON AND WORKING, VENT SETTINGS NOTED. FiO2 85%. VERGARA CATH STAT LOCKED IN PLACE. SEE FLOW SHEET FOR FURTHER DETAILS. WILL CONTINUE TO OBSERVE.
--- NOTE | 2019-08-06 21:00 | NUR ---
PT TURNED AND REPOSITIONED FOR COMFORT. MONITORS ON AND WORKING, VITALS STABLE. PURULENT DRAINAGE NOTED ON UPPER LEFT SIDE OF GROIN, RELAY MESSAGE TO WOUND CARE PLEASE.
[2019-08-07] VITALS (25 sets, daily range): BP systolic 79–110; BP diastolic 48–73; Ht 188 cm; Wt 113.7 kg
--- NOTE | 2019-08-07 03:00 | NUR ---
CHG BATH AND LINEN CHANGE COMPLETED AT THIS TIME, RIGHT FOOT WOUND CLEANED AND BANDAGE CHANGED PER ORDERS. TF ADVANCED TO 45ML/HR WITH 10ML RESIDUAL. BLISTER NOTED TO LEFT HEEL, HEELS ARE PROTECTED AND FLOATED. SEE FLOW SHEET FOR FURTHER DETAILS. WILL CONTINUE TO OBSERVE.
[2019-08-07 08:41] LABS: CALC OSMOLALITY 280 mosm/kg (275-300); CALCIUM 8.7 mg/dL (8.5-10.1); CARBON DIOXIDE 35.9 mmol/L (21.0-32.0); CHLORIDE - SERUM 95 mmol/L (98-107); GLUCOSE 216 mg/dL (74-106); SODIUM 137 mmol/L (136-145); UREA NITROGEN 13 mg/dL (7-18); VANCOMYCIN - TROUGH 17.5 ug/mL (10.0-20.0); eGFR NON AFRICAN AMERICAN 80 mL/min (90-120)
[2019-08-07 08:47] LABS: HEMATOCRIT 39.9 % (42.0-54.0); HEMOGLOBIN 12.5 g/dL (13.5-17.5); LYMPHOCYTES 9.4 % (15-50); MCH 27.9 pg (26.0-34.0); MCHC 31.3 g/dL (31.0-37.0); MCV 89.1 fL (80.0-100.0); MEAN PLATELET VOLUME 11.3 fL (7.4-10.4); NEUTROPHILS 83.5 % (40-80); PLATELET COUNT 144 10x3/uL (130-400); RBC 4.48 10x6/uL (4.20-6.10); RDW 17.5 % (11.5-14.5); WBC 9.8 10x3/uL (4.8-10.8)
--- NOTE | 2019-08-07 09:08 | NUR ---
INCREASE PEEP TO 8 PER ORDER
--- NOTE | 2019-08-07 10:26 | NUR ---
Nutrition follow-up: Pt remains intubated, sedated with propofol @ 18.5 ml/hr Glucerna 1.0 shade infusing @ 45 ml/hr with goal rate of 75 ml/hr Labs reviewed Wt: 273# Pt tolerating TF RDN following.
[2019-08-07 12:08] LABS: ACID FAST SMEAR Negative (()); FUNGUS STAIN Final report (())
--- NOTE | 2019-08-07 19:00 | NUR ---
BEDSIDE REPORT AND SHIFT ASSESSMENT COMPLETE, SEE FLOWSHEET. PT SEDATED, OPENS EYES. CONTROLLED AFIB ON MONITOR, RATE 70'S. AMIO GTT TO R WRIST. R WRIST PIV AND R AC PIV PATENT, SEE IV FLOWSHEET. L FOOT HEEL BLISTER, HEEL BRIDGED. R FOOT DRESSING CDI. WEEPING GROIN INCISION OPEN TO AIR. TUBE FEEDING VIA NGT. PT REPOSITIONED FOR COMFORT. ORAL CARE COMPLETE. WILL MONITOR.
--- NOTE | 2019-08-07 21:39 | NUR ---
DR ANAND PAGED ABOUT AFIB RVR RATE 147 WITH A BP OF 113/67
--- NOTE | 2019-08-07 22:30 | NUR ---
PT CONVERTED BACK TO NSR, RATE 72.
--- NOTE | 2019-08-07 23:00 | NUR ---
REASSESSMENT COMPLETE, SEE FLOWSHEET. TUBE FEEDING BAG CHANGED.
[2019-08-08] VITALS (24 sets, daily range): BP systolic 80–112; BP diastolic 58–72
--- NOTE | 2019-08-08 03:00 | NUR ---
REASSESSMENT COMPLETE, SEE FLOWSHEET.
[2019-08-08 07:20] LABS: ALBUMIN 2.3 g/dL (3.4-5.0); ALKALINE PHOSPHATASE 98 U/L (30-120); ALT (SGPT) 9 U/L (10-68); BILIRUBIN - TOTAL 0.84 mg/dL (0.2-1.3); CALC OSMOLALITY 274 mosm/kg (275-300); CALCIUM 8.1 mg/dL (8.5-10.1); CARBON DIOXIDE 36.7 mmol/L (21.0-32.0); CHLORIDE - SERUM 90 mmol/L (98-107); CREATININE - SERUM 0.7 mg/dL (0.6-1.3); GLUCOSE 283 mg/dL (74-106); MAGNESIUM - SERUM 1.8 mg/dL (1.8-2.4); PROTEIN - SERUM 6.5 g/dL (6.4-8.2); SODIUM 132 mmol/L (136-145); UREA NITROGEN 12 mg/dL (7-18)
[2019-08-08 07:21] LABS: POTASSIUM - SERUM 3.5 mmol/L (3.5-5.1); eGFR NON AFRICAN AMERICAN > 90 mL/min (90-120)
[2019-08-08 07:40] LABS: BASOPHILS 0.1 % (0-2); EOSINOPHILS 0.4 % (0-7); HEMATOCRIT 38.1 % (42.0-54.0); HEMOGLOBIN 11.9 g/dL (13.5-17.5); IMMATURE GRANULOCYTES 0.3 % (0-5); LYMPHOCYTES 7.8 % (15-50); MCH 27.8 pg (26.0-34.0); MCHC 31.2 g/dL (31.0-37.0); MEAN PLATELET VOLUME 11.9 fL (7.4-10.4); MONOCYTES 9.1 % (2-11); NEUTROPHILS 82.3 % (40-80); PLATELET COUNT 147 10x3/uL (130-400); RBC 4.28 10x6/uL (4.20-6.10); RDW 17.7 % (11.5-14.5); WBC 11.8 10x3/uL (4.8-10.8)
--- NOTE | 2019-08-08 16:00 | NUR ---
BATH AND LINEN CHANGED. REPOSITION TO L SIDE. CONTINUE TO MONITOR.
--- NOTE | 2019-08-08 19:30 | NUR ---
PT SEDATED, NGT VIA RIGHT NARE IN PLACE WITH GLUCERNA @ 75 CC/HR, ETT PATENT TO VENT, BILAT SWR IN USE, BILAT PIV'S INTACT WITH IVF'S INFUSING, VERGARA PATENT TO BSD, DRSG INTACT TO RIGHT FOOT, NO DISTRESS NOTED, WILL CONT TO MONITOR
--- NOTE | 2019-08-08 21:00 | NUR ---
PT REMAINS SEDATED, VITALS STABLE, WILL CONT TO MONITOR
--- NOTE | 2019-08-08 23:00 | NUR ---
PT RESTING QUIETLY, OPENS EYES TO STIMULI, NO DISTRESS NOTED
--- NOTE | 2019-08-08 23:00 | NUR ---
PT REMAINS SEDATED WITH NO CHANGES IN ASSESSMENT, WILL CONT TO MONITOR
[2019-08-09] VITALS (24 sets, daily range): BP systolic 97–118; BP diastolic 59–74
--- NOTE | 2019-08-09 01:00 | NUR ---
PT REPOSITIONED TO RIGHT SIDE, SPO2 DROPPED TO 60'S, UNABLE TO TOLERATE, REPOSTIONED TO BACK, SPO2 RETURNED TO NORMAL
--- NOTE | 2019-08-09 01:00 | NUR ---
REPOSITIONED FOR COMFORT, PT AROUSES EASILY, VITALS STABLE
--- NOTE | 2019-08-09 03:15 | NUR ---
PT REMAINS SEDATED, SUCTIONED VIA ETT, NO DISTRESS NOTED, VITALS STABLE
--- NOTE | 2019-08-09 05:20 | NUR ---
PT REPOSITIONED FOR COMFORT, VITALS STABLE, NO CHANGES NOTED, WILL CONT TO MONITOR
[2019-08-09 05:43] LABS: BASOPHILS 0.1 % (0-2); EOSINOPHILS 0 % (0-7); HEMATOCRIT 38.1 % (42.0-54.0); HEMOGLOBIN 11.8 g/dL (13.5-17.5); IMMATURE GRANULOCYTES 0.5 % (0-5); LYMPHOCYTES 7.7 % (15-50); MCH 27.6 pg (26.0-34.0); MEAN PLATELET VOLUME 11.9 fL (7.4-10.4); MONOCYTES 8.1 % (2-11); NEUTROPHILS 83.6 % (40-80); PLATELET COUNT 153 10x3/uL (130-400); RBC 4.28 10x6/uL (4.20-6.10); RDW 17.5 % (11.5-14.5); WBC 12.7 10x3/uL (4.8-10.8)
[2019-08-09 06:07] LABS: ALBUMIN 2.1 g/dL (3.4-5.0); ALKALINE PHOSPHATASE 114 U/L (30-120); BILIRUBIN - TOTAL 0.71 mg/dL (0.2-1.3); CALC OSMOLALITY 270 mosm/kg (275-300); CALCIUM 8.5 mg/dL (8.5-10.1); CARBON DIOXIDE 36.5 mmol/L (21.0-32.0); CHLORIDE - SERUM 89 mmol/L (98-107); CREATININE - SERUM 0.7 mg/dL (0.6-1.3); GLUCOSE 297 mg/dL (74-106); MAGNESIUM - SERUM 1.9 mg/dL (1.8-2.4); PHOSPHOROUS 2.7 mg/dL (2.5-4.9); POTASSIUM - SERUM 3.7 mmol/L (3.5-5.1); PROTEIN - SERUM 6.8 g/dL (6.4-8.2); SODIUM 129 mmol/L (136-145); UREA NITROGEN 14 mg/dL (7-18); eGFR NON AFRICAN AMERICAN > 90 mL/min (90-120)
[2019-08-09 06:11] LABS: ALT (SGPT) 6 U/L (10-68)
--- NOTE | 2019-08-09 07:25 | NUR ---
SHIFT ASSESSMENT COMPLETE, PT ON 60% FIO2 WITH 97% O2 SAT. ALL PPP, VSS, WILL CON'T TO MONITOR
--- NOTE | 2019-08-09 08:38 | NUR ---
PS TRIAL 26/12 @290
--- NOTE | 2019-08-09 09:00 | NUR ---
REPOSITIONED FOR COMFORT, ORAL CARE PROVIDED, WILL CON'T TO MONITOR
--- NOTE | 2019-08-09 09:30 | NUR ---
Nutrition follow-up: Pt intubated, sedated Glucerna 1.0 shade infusing @ 75 ml/hr; at goal Labs reviewed Wt: 279# Echo bubble study results pending Pt tolerating TF at goal. RDN following.
--- NOTE | 2019-08-09 11:30 | NUR ---
REASSESSMENT COMPLETE, PT ON CPAP AT THIS TIME, TOLERATING WELL, WILL CON'T TO MONITOR
--- NOTE | 2019-08-09 13:00 | NUR ---
REPOSITIONED FOR COMFORT, ORAL CARE PROVIDED,
--- NOTE | 2019-08-09 15:15 | NUR ---
REASSESSMENT COMPLETE, NO CHANGES NOTED, WILL CON'T TO MONITOR
--- NOTE | 2019-08-09 17:25 | NUR ---
REPOSITIONED FOR COMFORT, ORAL CARE PROVIDED
--- NOTE | 2019-08-09 19:30 | NUR ---
PT SEDATED, NGT IN PLACE WITH GLUCERNA @ 65 CC/HR, ETT PATENT TO VENT, LUNGS CTA, DIMINISHED, LEFT AND RIGHT PIV'S INTACT WITH IVF'S INFUSING, BILAT SWR IN USE, VERGARA PATENT TO BSD, GENERALIZED EDEMA NOTED, DRSG INTACT TO RIGHT FOOT, VITALS STABLE
--- NOTE | 2019-08-09 21:00 | NUR ---
PT REMAINS SEDATED, VITALS STABLE, WILL CONT TO MONITOR
--- NOTE | 2019-08-09 23:15 | NUR ---
NO CHANGES FROM INITIAL ASSESSMENT, REMAINS SEDATED, VITALS STABLE
[2019-08-10] VITALS (23 sets, daily range): BP systolic 92–118; BP diastolic 57–68
--- NOTE | 2019-08-10 03:30 | NUR ---
PT BATHED, BUTTOCKS EXCORIATED, PLACED MEPILEX DRSG TO BUTTOCKS, ABBE CREAM TO GROIN AREA, PT REMAINS SEDATED, WILL CONT TO MONITOR
[2019-08-10 05:40] LABS: BASOPHILS 0.2 % (0-2); EOSINOPHILS 0.5 % (0-7); HEMATOCRIT 36.4 % (42.0-54.0); HEMOGLOBIN 11.2 g/dL (13.5-17.5); IMMATURE GRANULOCYTES 0.4 % (0-5); LYMPHOCYTES 8.9 % (15-50); MCH 27.3 pg (26.0-34.0); MCHC 30.8 g/dL (31.0-37.0); MCV 88.8 fL (80.0-100.0); MEAN PLATELET VOLUME 11.5 fL (7.4-10.4); PLATELET COUNT 132 10x3/uL (130-400); RDW 17.4 % (11.5-14.5); WBC 14.1 10x3/uL (4.8-10.8)
[2019-08-10 06:15] LABS: ALKALINE PHOSPHATASE 125 U/L (30-120); BILIRUBIN - TOTAL 0.84 mg/dL (0.2-1.3); CALC OSMOLALITY 275 mosm/kg (275-300); CALCIUM 8.8 mg/dL (8.5-10.1); CARBON DIOXIDE 35.7 mmol/L (21.0-32.0); CHLORIDE - SERUM 92 mmol/L (98-107); CREATININE - SERUM 0.7 mg/dL (0.6-1.3); GLUCOSE 281 mg/dL (74-106); MAGNESIUM - SERUM 2.1 mg/dL (1.8-2.4); PHOSPHOROUS 3.1 mg/dL (2.5-4.9); POTASSIUM - SERUM 3.5 mmol/L (3.5-5.1); PROTEIN - SERUM 6.7 g/dL (6.4-8.2); SODIUM 132 mmol/L (136-145); UREA NITROGEN 16 mg/dL (7-18); eGFR NON AFRICAN AMERICAN > 90 mL/min (90-120)
[2019-08-10 06:18] LABS: ALT (SGPT) 8 U/L (10-68)
--- NOTE | 2019-08-10 08:53 | NUR ---
LYING IN BED ON VENT AT THIS TIME. VSS. NO ACUTE DISTRESS NOTED. PT RESPONDS TO DISCOMFORT. NOT CURRENTLY FOLLOWING COMMANDS. TURNED Q2H. ORAL CARE PROVIDED Q2H. VERGARA CARE PROVIDED. WILL CONTINUE PLAN OF CARE.
--- NOTE | 2019-08-10 09:25 | NUR ---
NGT RESIDUALS NOTED 55ML.
--- NOTE | 2019-08-10 10:00 | NUR ---
ON CPAP TRIAL PER PULMONOLOGY.
--- NOTE | 2019-08-10 11:04 | NUR ---
PER ANGELINE COLON TO DC CORARONE GTT AND SWITCH OVER TO 200 MG CORDARONE PO DAILY.
--- NOTE | 2019-08-10 11:20 | NUR ---
PO CORADARONE ADMIN AT THIS TIME. WILL DC IV CORDARONE IN 4 HOURS.
--- NOTE | 2019-08-10 13:00 | NUR ---
PT EXTUBATED AT THIS TIME PER ROLL PRESS OPERATOR ORDERS. PLACED ON BIPAP AT 40% FIO2. NO ACUTE DISTRESS NOTED. VSS. PT AWAKE AND FOLLOWS COMMANDS, AND NODS/SHAKES HEAD YES AND NO. NGT IS STILL IN PLACE. PLACEMENT VERIFIED VIA AUSCULTATION AND ASPIRATION. WILL CONTINUE PLAN OF CARE.
--- NOTE | 2019-08-10 15:54 | NUR ---
SPOKE WITH PTS FAMILY, COUSIN JASE WALKER, AT [phone]. UPDATES PROVIDED AFTER CALLIN CODE CONFIRMED. JASE STATED SHE WOULD NOTIFY THE REST OF THE FAMILY ABOUT THIS UPDATE. NO ACUTE DISTRESS NOTED. VSS. WILL CONTINUE PLAN OF CARE.
--- NOTE | 2019-08-10 16:58 | NUR ---
ATTEMPTED TO PROVIDE CHG BATH AT THIS TIME. PT REFUSED BATH AT THIS TIME STATED THAT HE WAS TIRED. OFFERED TO WASH PTS HAIR OR FACE AND PT STATED NO. PT DID ALLOW STAFF TO TURN AND CHANGE LINENS WELL VERGARA CARE. WILL OFFER BATH AGAIN IN A LITTLE WHILE. VSS. WILL CONTINUE PLAN OF CARE.
--- NOTE | 2019-08-10 17:22 | NUR ---
SUCTIONING PROVIDED AT THIS TIME, NOTED ORAL WHITE SECRETIONS SUCTIONED. ORAL CARE ALSO PROVIDED. PT TURNED Q2H. WILL CONTINUE PLAN OF CARE.
--- NOTE | 2019-08-10 19:00 | NUR ---
REPORT RECEIVED INITIAL ASSESSMENT COMPLETE PT OPENS EYES SPONTANEOUSLY FOLLOWS COMMANDS DIFFICULT TO UNDERSTAND SPEECH WITH LOW VOICE AND BIPAP. ENCOURAGED TO TAKE DEEP BREATHS. CRACKLES PER AUSCULTATION O2 SAT 93%. SR PER CM ALARMS ON AND AUDIBLE REPOSITIONED FOR COMFORT CPOC
--- NOTE | 2019-08-10 23:00 | NUR ---
REASSESSMENT COMPLETE NO CHANGES CPOC
[2019-08-11] VITALS (24 sets, daily range): BP systolic 92–121; BP diastolic 52–80
--- NOTE | 2019-08-11 03:00 | NUR ---
REASSESSMENT COMPLETE NO CHANGES VSS CPOC
--- NOTE | 2019-08-11 06:00 | NUR ---
[facility] BATH
--- NOTE | 2019-08-11 07:34 | NUR ---
PT LYING IN BED ON BIPAP AT THIS TIME. PT OBTUNDED, OPENS EYES WHEN SPOKEN TO AND SPONTANEOUSLY. UNABLE TO DETERMINE PTS ORIENTATION, SPEECH SLUR. WHEN ASKED PT TO LIFT ARMS, HE COULD ONLY RAISE FINGERS AND WAS UNABLE TO RAISE ARMS TO A POINT THAT WRISTS WERE OFF BED. PT FOLLOWS COMMANDS. NGT FEEDING RESIDUAL NOTED 95ML. PT TURNED Q2H, ORAL CARE PROVIDED Q2H. WILL CONTINUE PLAN OF CARE.
--- NOTE | 2019-08-11 08:34 | NUR ---
DR SHAH HERE TO SEE PT, ORDERED ABG.
[2019-08-11 09:10] LABS: BASOPHILS 0.7 % (0-2); EOSINOPHILS 0 % (0-7); HEMATOCRIT 41.2 % (42.0-54.0); HEMOGLOBIN 12.6 g/dL (13.5-17.5); IMMATURE GRANULOCYTES 0.6 % (0-5); LYMPHOCYTES 8.1 % (15-50); MCHC 30.6 g/dL (31.0-37.0); MONOCYTES 6.8 % (2-11); NEUTROPHILS 83.8 % (40-80); RDW 17.7 % (11.5-14.5); WBC 16.4 10x3/uL (4.8-10.8)
[2019-08-11 09:14] LABS: MCV 91.6 fL (80.0-100.0); PLATELET COUNT 172 10x3/uL (130-400)
[2019-08-11 09:36] LABS: ALBUMIN 2.2 g/dL (3.4-5.0); ALKALINE PHOSPHATASE 134 U/L (30-120); BILIRUBIN - TOTAL 1.39 mg/dL (0.2-1.3); CALC OSMOLALITY 277 mosm/kg (275-300); CALCIUM 9.1 mg/dL (8.5-10.1); CARBON DIOXIDE 37.7 mmol/L (21.0-32.0); CHLORIDE - SERUM 92 mmol/L (98-107); CREATININE - SERUM 0.7 mg/dL (0.6-1.3); GLUCOSE 186 mg/dL (74-106); PROTEIN - SERUM 7.4 g/dL (6.4-8.2); SODIUM 136 mmol/L (136-145); UREA NITROGEN 14 mg/dL (7-18); VANCOMYCIN - TROUGH 19.2 ug/mL (10.0-20.0); eGFR NON AFRICAN AMERICAN > 90 mL/min (90-120)
[2019-08-11 09:37] LABS: ALT (SGPT) 14 U/L (10-68); POTASSIUM - SERUM 2.9 mmol/L (3.5-5.1)
[2019-08-11 10:04] LABS: PHOSPHOROUS 1.8 mg/dL (2.5-4.9)
--- NOTE | 2019-08-11 10:07 | NUR ---
NO ACUTE DISTRESS NOTED. VSS. WILL CONTINUE PLAN OF CARE.
--- NOTE | 2019-08-11 11:09 | NUR ---
NGT TUBE FEEDS TURNED OFF PER DR SHAH. ALSO PER DR SHAH, BIPAP TO BE ON 4H BID AND CONTINUOUSLY AT NIGHTTIME. VSS. NO ACUTE DISTRESS NOTED. WILL CONTINUE PLAN OF CARE.
--- NOTE | 2019-08-11 11:21 | NUR ---
PT DENIES ANY NEEDS AT THIS TIME, STATED "THANK YOU FOR ALL YOU GUYS HAVE DONE FOR ME, I AM READY TO GO HOME NOW." PT ENCOURAGED TO BE PATIENT, AND HE IS DOING BETTER AND WE ARE TRYING TO HELP HIM GET TO WHERE HE COULD GO HOME. NO ACUTE DISTRESS NOTED. VSS. TURNED Q2H, ORAL CARE PROVIDED Q2H. PT IS MORE ALERT AT THIS TIME THEN HE WAS AT THE 0700 ASSESSMENT. WILL CONTINUE PLAN OF CARE.
--- NOTE | 2019-08-11 13:07 | NUR ---
NO ACUTE DISTRESS NOTED. NO CHANGE. VSS. WILL CONTINUE PLAN OF CARE.
--- NOTE | 2019-08-11 14:08 | NUR ---
SPOKE WITH PTS BROTHER AFTER CALL IN CODE WAS VERIFIED. UPDATES PROVIDED. NO ACUTE DISTERSS NOTED. VSS. WILL CONTINUE PLAN OF CARE.
--- NOTE | 2019-08-11 14:27 | NUR ---
BIPAP IN PLACE. OXYGEN SATRUATION 83% WITH GOOD WAVEFORM. AFTER BIPAP PLACED WITH 40% FIO2, OXYGEN SATURATION NOW 92%. NO ACUTE DISTRESS NOTED. VSS. WILL CONTINUE PLAN OF CARE.
--- NOTE | 2019-08-11 14:45 | NUR ---
DR GONZALES NOTIFIED OF PT SBP TRENDING 92-96 SINCE AFTER RECIEVING DOSE THIS MORNING OF BUMEX. HE STATED TO HOLD THIS DOSE.
--- NOTE | 2019-08-11 15:05 | NUR ---
DR GONZALES NOTITFIED OF AREA OF PUSTULES TO MONS PUBIS. NO NEW ORDERS RECIEVED. VSS. PT TURNED Q2H. ORAL CARE PROVIDED Q2H. WILL CONTINUE PLAN OF CARE.
--- NOTE | 2019-08-11 16:44 | NUR ---
PT TRANSFERRED TO [facility] VIA BED, THIS NURSE TO CONTINUE PT CARE. NO ACUTE DISTERSS NOTED. PT AWAKE. PRODUCTIVE COUGH, WHITE THICK SECRETIONS. TURNED Q2H. ORAL CARE PROVIDED Q2H. WILL CONTINUE PLAN OF CARE.
--- NOTE | 2019-08-11 18:02 | NUR ---
NO ACUTE DISTRESS NOTED. NO CHANGE. VSS. WILL CONTINUE PLAN OF CARE.
--- NOTE | 2019-08-11 19:44 | NUR ---
REPORT RECEIVED INITIAL ASSESSMENT COMPLETE. PT CONFUSED AND SPEECH DIFFICULT TO UNDERSTAND FOLLOWS COMMANDS. RESP SHALLOW AND SOB WITH EXERTION ON HFNC AT 10 LPM. CM READING SR WITHOUT ECTOPY ALARMS ON AND AUDIBLE. SEE ASSSESSMENT FLOWSHEET. BED LOW POSITION SIDE RAILS UP TIMES 3 CL IN REACH. PT DENIES PAIN OR NEEDS AT THIS TIME WILL CONTINUE TO MONITOR.
--- NOTE | 2019-08-11 20:00 | NUR ---
IV PUMP ALARMING INFORMED PT TO TRY KEEP ARM STRAIGHT CAUSING IV PUMP TO ALARM PT STATES NO AGGRESSIVELY AND BENDS ARM EVEN MORE. INFORMED PT WOULD HAVE TO GET ANOTHER IV SO ANTIBIOTICS COULD INFUSE. WILL MONITOR
--- NOTE | 2019-08-11 21:00 | NUR ---
PT REFUSES BATH
--- NOTE | 2019-08-11 21:35 | NUR ---
HOT PLATE PLYWOOD PRESS LABORER HERE TO DRAW POTASSIUM LEVEL POST REPLACEMENT
--- NOTE | 2019-08-11 23:10 | NUR ---
PT PLACED ON BIPAP PER RT
--- NOTE | 2019-08-11 23:30 | NUR ---
IV PUMP ALARMING PT BENDING ARM. STILL FLUSHES EASILY JUST IN AC. PIV 20 GUAGE TO RIGHT SHOULDER X 1 ATTEMPT
[2019-08-12] VITALS (25 sets, daily range): BP systolic 87–109; BP diastolic 31–68
--- NOTE | 2019-08-12 03:00 | NUR ---
REASSESSMENT COMPLETE PT ON BIPAP 40% SEE ASSESSMENT FLOWSHEET
--- NOTE | 2019-08-12 05:39 | NUR ---
PT BLOOD PRESSURE LOWER AFTER BUMEX WILL MONITOR DROPPED YESTERDAY WELL AFTER BUMEX PER DAY SHIFT NURSE
--- NOTE | 2019-08-12 06:20 | NUR ---
RECHECK OF K REPLACED PER ELECTROLYTE PROTOCOL AND ORDER PLACED FOR REDRAW
--- NOTE | 2019-08-12 07:00 | NUR ---
REPORT RECEIVED. ASSESSMENT COMPLETE PER FLOW SHEET. VSS PT RESTING COMFORTABLY WILL CONTINUE TO MONITOR
--- NOTE | 2019-08-12 07:46 | NUR ---
Nutrition follow-up: Pt extubated 08/09; NPO TF stopped 08/[address] Sy Labs reviewed Wt: 281# Will need nutrition support restarted within 24 hours if oral diet unable to begin. Recommend speech evaluation. RDN following.
[2019-08-12 09:08] LABS: FUNGUS CULTURE RESULT 1 Candida albicans (()); FUNGUS MYCOLOGY CULTURE Preliminary report (())
[2019-08-12 10:17] LABS: ALBUMIN 2.1 g/dL (3.4-5.0); ALKALINE PHOSPHATASE 114 U/L (30-120); ALT (SGPT) 13 U/L (10-68); BILIRUBIN - TOTAL 1.09 mg/dL (0.2-1.3); CALCIUM 8.1 mg/dL (8.5-10.1); CHLORIDE - SERUM 95 mmol/L (98-107); POTASSIUM - SERUM 3.6 mmol/L (3.5-5.1); PROTEIN - SERUM 6.3 g/dL (6.4-8.2); SODIUM 136 mmol/L (136-145); UREA NITROGEN 13 mg/dL (7-18)
[2019-08-12 10:24] LABS: CALC OSMOLALITY 272 mosm/kg (275-300); CREATININE - SERUM 0.5 mg/dL (0.6-1.3); GLUCOSE 125 mg/dL (74-106); eGFR NON AFRICAN AMERICAN > 90 mL/min (90-120)
[2019-08-12 10:25] LABS: CARBON DIOXIDE 39.1 mmol/L (21.0-32.0)
--- NOTE | 2019-08-12 11:00 | NUR ---
REASSESSMENT COMPLETE PER FLOW SHEET. VSS. PT RESTING CMOFORTABLY WILL CONTINUE TO MONITOR
--- NOTE | 2019-08-12 17:30 | NUR ---
FED DINNER ATE 50% DNEIES NEEDS WILL CONTINUE TO MONTIOR
--- NOTE | 2019-08-12 19:00 | NUR ---
Report received from off going nurse. Pt is laying in bed on bipap. Shift assessment completed, see flowsheet for details. No needs noted at this time. No s/s of distress. Will continue to monitor.
--- NOTE | 2019-08-12 21:00 | NUR ---
Repositioned pt for comfort. No needs noted at this time. No s/s of distress. Will continue to monitor.
--- NOTE | 2019-08-12 23:00 | NUR ---
Reassessment completed, see flowsheet for details. Pt repositioned for comfort. No further needs at this time. No s/s of distress. Will continue to monitor.
[2019-08-13] VITALS (24 sets, daily range): BP systolic 97–130; BP diastolic 54–83
--- NOTE | 2019-08-13 01:00 | NUR ---
Pt is resting in bed at this time. Repositioned for comfort. No further needs noted at this time. No s/s of distress. Will continue to monitor.
--- NOTE | 2019-08-13 03:00 | NUR ---
Reassessment completed, see flowsheet for details. Pt is laying in bed with eyes open at this time. Repositioned for comfort. Oral care performed. No s/s of distress noted. Will continue to monitor.
[2019-08-13 03:28] LABS: BASOPHILS 0.2 % (0-2); EOSINOPHILS 0 % (0-7); HEMATOCRIT 39.7 % (42.0-54.0); HEMOGLOBIN 12.1 g/dL (13.5-17.5); IMMATURE GRANULOCYTES 0.6 % (0-5); LYMPHOCYTES 12.1 % (15-50); MCH 27.5 pg (26.0-34.0); MCHC 30.5 g/dL (31.0-37.0); MCV 90.2 fL (80.0-100.0); MEAN PLATELET VOLUME 11.8 fL (7.4-10.4); MONOCYTES 8.4 % (2-11); NEUTROPHILS 78.7 % (40-80); RDW 17.6 % (11.5-14.5); WBC 13.3 10x3/uL (4.8-10.8)
[2019-08-13 03:29] LABS: PLATELET COUNT 245 10x3/uL (130-400)
[2019-08-13 03:30] LABS: ALBUMIN 2.1 g/dL (3.4-5.0); ALKALINE PHOSPHATASE 104 U/L (30-120); ALT (SGPT) 11 U/L (10-68); BILIRUBIN - TOTAL 1.16 mg/dL (0.2-1.3); CALCIUM 8.6 mg/dL (8.5-10.1); CHLORIDE - SERUM 95 mmol/L (98-107); PROTEIN - SERUM 7.1 g/dL (6.4-8.2); SODIUM 138 mmol/L (136-145); UREA NITROGEN 13 mg/dL (7-18)
[2019-08-13 03:31] LABS: CALC OSMOLALITY 280 mosm/kg (275-300); CREATININE - SERUM 0.7 mg/dL (0.6-1.3); GLUCOSE 181 mg/dL (74-106); eGFR NON AFRICAN AMERICAN > 90 mL/min (90-120)
[2019-08-13 03:33] LABS: CARBON DIOXIDE 41.5 mmol/L (21.0-32.0)
--- NOTE | 2019-08-13 05:00 | NUR ---
Pt given complete chg bath and linen change. Repositioned for comfort. No s/s of distress noted. Will continue to monitor.
--- NOTE | 2019-08-13 07:00 | NUR ---
PT REPORT RECEIVED FROM RETIREMENT PLAN COUNSELOR NURSE. NO ACUTE SIGNS OF DISTRESS NOTED. PT ON BIPAP AT 60%. SHIFT ASSESSMENT COMPLETED. WILL CONTINUE TO MONITOR
--- NOTE | 2019-08-13 08:40 | NUR ---
BIPAP TAKEN OFF PT TO TAKE ORAL MEDS. PT SWALLOWED WELL HOWEVER BEGAN TO DESAT WHEN OFF BIPAP. NC PLACED ON PT SOON BIPAP TAKEN OFF. BIPAP PLACED BACK ON PT AND O2 SAT BEGAN TO REBOUND.
--- NOTE | 2019-08-13 09:08 | NUR ---
DR VILLAFANA IN ROOM. UPDATE GIVEN. NO NEW ORDERS. WILL CONTINUE TO MONITOR
--- NOTE | 2019-08-13 13:15 | NUR ---
LAITH CORREIA IN ROOM. PERFORMING SWALLOW STUDY. WILL CONTINUE TO MONITOR
--- NOTE | 2019-08-13 16:45 | NUR ---
RT IN ROOM. PATIENT SWITCHED OVER TO VAPOTHERM 100% OXYGEN 40 LITERS. O2 SAT 95. PT TOLERATING WELL. WILL CONTINUE TO MONITOR
--- NOTE | 2019-08-13 18:11 | NUR ---
CHANGED DRESSING ON PT RT FOOT. ADAPTIC APPLIED AND COVERED WITH GUAZE AND KERLIX. PT TOLERATED WELL. WILL CONTINUE TO MONITOR
--- NOTE | 2019-08-13 19:00 | NUR ---
Report received from off going nurse. Pt is laying in bed on vaportherm at this time. Repositioned for comfort. No further needs voiced at this time. No s/s of distress. Will continue to monitor.
--- NOTE | 2019-08-13 21:00 | NUR ---
Pt is laying in bed with eyes closed at this time. Repositioned for comfort. No further needs at this time. No s/s of distres. Will continue to monitor.
--- NOTE | 2019-08-13 23:00 | NUR ---
Reassessment completed, see flowsheet for details. Pt is laying in bed with eyes closed at this time. Repositioned for comfort. No further needs at this time. No s/s of distress. Will continue to monitor.
[2019-08-14] VITALS (18 sets, daily range): BP systolic 98–118; BP diastolic 56–69
--- NOTE | 2019-08-14 01:00 | NUR ---
Pt is laying in bed with eyes closed. Repositioned for comfort. No further needs at this time. No s/s of distress. Will continue to monitor.
--- NOTE | 2019-08-14 03:00 | NUR ---
Reassessment completed, see flowsheet for details. Pt is resting in bed with eyes closed. Repositioned for comfort. No further needs noted. Will continue to monitor.
--- NOTE | 2019-08-14 05:00 | NUR ---
Pt is resting in bed with eyes closed. Repositioned for comfort. No further needs noted. Will continue to monitor.
[2019-08-14 07:09] LABS: FUNGUS CULTURE RESULT 1 Candida albicans (())
--- NOTE | 2019-08-14 08:30 | NUR ---
DR VUONG IN ROOM. UPDATE GIVEN. WILL CONTINUE TO MONITOR
--- NOTE | 2019-08-14 08:47 | NUR ---
RT PAGED. GOING TO PLACE PT ON VAPOTHERM SO HE CAN EAT BREAKFAST. WILL CONTINUE TO MONITOR
--- NOTE | 2019-08-14 09:20 | NUR ---
LAITH CORREIA IN ROOM TO SEE PT. PT COUGHING BUT DOES NOT KNOW IF IT IS FROM FOOD OR FROM LUNGS. MASOOD STATED HE WAS GOING TO ORDER THE PT BE NPO. WILL CONTINUE TO MONITOR
--- NOTE | 2019-08-14 11:54 | NUR ---
PHYSICAL THERAPY IN ROOM. PT SAT UP TO BEDSIDE. TOLERATED WELL. WAS UNABLE TO SUPPORT HIMSELF. BACK IN BED LYING DOWN NOW. WILL CONTINUE TO MONITOR
--- NOTE | 2019-08-14 13:32 | NUR ---
Nutrition Follow-up: Noted ST reported coughing during eval this AM; they rec NPO with alternative means of nutrition. Diet: NPO Wt: 271.1# (08/13); 281# (08/11); 272.8# (08/05). Noted I/Os (-3365 mL on 08/12). Last BM: 08/05 per chart Labs reviewed Meds noted: Bumex, KDur, Protonix, Humalog -Rec restart Glucerna 1.0 (goal rate 75 mL/hr) 2/ ST eval/recs. -Monitor wt. -RD following.
--- NOTE | 2019-08-14 15:00 | NUR ---
DR MCFADDEN AT BEDSIDE. UPDATE GIVEN. WILL CONTINUE TO MONITOR
--- NOTE | 2019-08-14 19:00 | NUR ---
Report received from off going nurse. Pt is laying in bed at this time. Pt repositioned for comfort. No further needs voiced. No s/s of distress. Will continue to monitor.
--- NOTE | 2019-08-14 21:00 | NUR ---
Pt is resting in bed with eyes closed. Repositioned for comfort. No further needs noted at this time. No s/s of distress. Will continue to monitor.
--- NOTE | 2019-08-14 23:00 | NUR ---
Reassessment completed, see flowsheet for details. Pt is laying in bed with eyes closed. Repositioned for comfort. No further needs ntoed at this time. Will continue to monitor.
[2019-08-15] VITALS (24 sets, daily range): BP systolic 91–138; BP diastolic 52–82
--- NOTE | 2019-08-15 01:00 | NUR ---
Pt is laying in bed with eyes closed. Repositioned for comfort. No further needs noted at this time. No s/s of distress noted. Will continue to monitor.
--- NOTE | 2019-08-15 03:00 | NUR ---
Reassessment completed, see flowsheet for details. Pt is laying in bed with eyes closed. Repositioned for comfort. No s/s of distress. Will continue to monitor.
[2019-08-15 06:08] LABS: BASOPHILS 0.4 % (0-2); EOSINOPHILS 0 % (0-7); HEMATOCRIT 48.4 % (42.0-54.0); HEMOGLOBIN 14.4 g/dL (13.5-17.5); IMMATURE GRANULOCYTES 0.7 % (0-5); LYMPHOCYTES 9.6 % (15-50); MCH 27.7 pg (26.0-34.0); MCHC 29.8 g/dL (31.0-37.0); MCV 93.1 fL (80.0-100.0); MEAN PLATELET VOLUME 11.6 fL (7.4-10.4); MONOCYTES 8.2 % (2-11); NEUTROPHILS 81.1 % (40-80); PLATELET COUNT 309 10x3/uL (130-400); RDW 17.6 % (11.5-14.5); WBC 15.3 10x3/uL (4.8-10.8)
[2019-08-15 06:21] LABS: CALC OSMOLALITY 289 mosm/kg (275-300); CALCIUM 9.6 mg/dL (8.5-10.1); CHLORIDE - SERUM 95 mmol/L (98-107); CREATININE - SERUM 0.9 mg/dL (0.6-1.3); GLUCOSE 198 mg/dL (74-106); MAGNESIUM - SERUM 2.1 mg/dL (1.8-2.4); PHOSPHOROUS 4.4 mg/dL (2.5-4.9); POTASSIUM - SERUM 3.4 mmol/L (3.5-5.1); SODIUM 142 mmol/L (136-145); UREA NITROGEN 16 mg/dL (7-18); eGFR NON AFRICAN AMERICAN 90 mL/min (90-120)
[2019-08-15 06:24] LABS: CARBON DIOXIDE 43.9 mmol/L (21.0-32.0)
--- NOTE | 2019-08-15 07:00 | NUR ---
PT REPORT RECEIVED FROM LATEX THREAD MACHINE OPERATOR NURSE. SHIFT ASSESSMENT COMPLETED. NO ACUTE SIGNS OF DISTRESS NOTED. WILL CONTINUE TO MONITOR
--- NOTE | 2019-08-15 07:49 | NUR ---
Dressing on pt rt foot changed. Pt tolerated well. No complaints noted at this time. RT in room, switched pt over to vapotherm 40L 100%. Pt had purulent drainage noted in groin area. Will notify Dr Clemente when he rounds.
--- NOTE | 2019-08-15 08:30 | NUR ---
PT WENT INTO AFIB WITH RVR. DR BROWNE ON UNIT. UPDATE GIVEN. ORDER RECEIVED FOR 150MG OF IV CORDERONE BOLUS. MEDICATION GIVEN. PT DOWN FROM 160'S TO 80'S-90'S. WILL CONTINUE TO MONITOR
--- NOTE | 2019-08-15 09:06 | NUR ---
PHYSICAL THERAPY IN ROOM WORKING WITH PT.
--- NOTE | 2019-08-15 09:15 | NUR ---
DR VILLAFANA IN ROOM. UPDATE GIVEN. NEW ORDER RECEIVED FOR NYSTATIN POWDER FOR GROIN AREA.
--- NOTE | 2019-08-15 10:24 | NUR ---
CALLED PHARMACY TO HAVE NYSTATIN POWDER BROUGHT UP FOR PT.
--- NOTE | 2019-08-15 11:15 | NUR ---
REASSESSMENT COMPLETED. PT RUNNING LOW GRADE FEVER. GAVE TYLENOL. NO COMPLAINTS NOTED AT THIS TIME. WILL CONTINUE TO MONITOR
--- NOTE | 2019-08-15 13:45 | NUR ---
DR MCFADDEN AT BEDSIDE. NO NEW ORDERS AT THIS TIME. WILL CONTINUE TO MONITOR
--- NOTE | 2019-08-15 15:15 | NUR ---
PT RUNNING TEMP. ICE PLACED UNDER BOTH ARMPITS. WILL CONTINUE TO MONITOR
--- NOTE | 2019-08-15 19:34 | NUR ---
REPORT RECEIVED, SHIFT ASSESSMENT COMPLETED PER FLOW SHEET, SEE FOR DETAILS. NGT PLACEMENT VERIFIED VIA AUSCULTATION, TOLERATING TUBE FEEDINGS, 0 ML RESIDUAL. INCONTINENT, BROWN BM NOTED, CLEANED AND REPOSITIONED IN BED. WILL CONTINUE TO MONITOR. 2100 REPOSITIONED IN BED, 0 ML RESIDUAL FROM TUBE FEEDINGS, WILL REASSESS Q6H ORDERED. 2300 REASSESSMENT COMPLETED PER FLOW SHEET, SEE FOR DETAILS. WILL CONTINUE TO MONITOR.
--- NOTE | 2019-08-15 19:58 | NUR ---
COUSINS JASE FONTANEZ CALLED, SECURITY CALL CODE OBTAINED, UPDATE GIVEN, QUESTIONS ANSWERED, DENIED FURTHER NEEDS. PATIENT RESTING ON BIPAP.
[2019-08-16] VITALS (22 sets, daily range): BP systolic 90–126; BP diastolic 42–70
--- NOTE | 2019-08-16 00:38 | NUR ---
PATIENT COUGHING, ORAL CARE PROVIDED, ORAL SUCTION PROVIDED. PATIENT WARM TO THE TOUCH, TEMPERATURE 102, TYLENOL GIVEN, ICE PACKS PROVIDED, ROOM TEMPERATURE DECREASED. 0100 RESTING ON BIPAP, REPOSITIONED IN BED. 0300 REASSESSMENT COMPLETED PER FLOW SHEET, SEE FOR DETAILS. TEMPERATURE DOWN TO 99.9. WILL CONTINUE TO MONITOR.
--- NOTE | 2019-08-16 05:00 | NUR ---
RESTING, NO ACUTE CHANGES NOTED, WILL CONTINUE TO MONITOR.
[2019-08-16 05:48] LABS: CALCIUM 9.8 mg/dL (8.5-10.1); CHLORIDE - SERUM 98 mmol/L (98-107); POTASSIUM - SERUM 3.9 mmol/L (3.5-5.1); SODIUM 145 mmol/L (136-145); eGFR NON AFRICAN AMERICAN 80 mL/min (90-120)
[2019-08-16 06:06] LABS: CALC OSMOLALITY 303 mosm/kg (275-300); GLUCOSE 298 mg/dL (74-106); UREA NITROGEN 25 mg/dL (7-18)
[2019-08-16 06:07] LABS: CARBON DIOXIDE 42.3 mmol/L (21.0-32.0)
[2019-08-16 06:47] LABS: HEMATOCRIT 47.9 % (42.0-54.0); HEMOGLOBIN 14.4 g/dL (13.5-17.5); MCH 28.3 pg (26.0-34.0); MCHC 30.1 g/dL (31.0-37.0); MCV 94.1 fL (80.0-100.0); MEAN PLATELET VOLUME 12.7 fL (7.4-10.4); PLATELET COUNT 314 10x3/uL (130-400); RBC 5.09 10x6/uL (4.20-6.10); RDW 17.7 % (11.5-14.5); WBC 29.4 10x3/uL (4.8-10.8)
[2019-08-16 07:15] LABS: LYMPHOCYTES 7 % (15-50); MONOCYTES 6 % (2-11); NEUTROPHILS 87 % (40-80); PLATELET ESTIMATE NORMAL
--- NOTE | 2019-08-16 07:20 | NUR ---
SHIFT REPORT RECEIVED. PT RESTING COMFORTABLY IN BED. OPENS EYES, FOLLOWS SIMPLE COMMANDS. NO VERBAL RESPONSE AT THIS TIME. ON BIPAP AT 70%. VERGARA CATHETER INPLACE WITH DONTAE URINE NOTED. 20G PIV TO R-AC SALINE LOC. DRESSING TO RIGHT FOOT NOTED. PARTIAL AMPUTATION TO LEFT FOOT. LYNDSEY FEET ELEVATED ON PILLOWS. NO FEVER NOTED. SAFETY MEASURES IN PLACE. WILL CONTINUE TO MONITOR.
--- NOTE | 2019-08-16 08:22 | NUR ---
ELEVATED WBC'S REPORTED TO DR. VILLAFANA. MUMTAZ RECEIVED. WILL CONTINUE TO MONITOR.
--- NOTE | 2019-08-16 08:48 | NUR ---
DR. MCFADDEN NOTIFIED OF ELEVATED WBC'S. NO FLUIDS OR ALBUMIN TO BE GIVEN AT THIS TIME. ORDERED VANCOMYCIN Q 12HR TO BE DOSED BY PHARMACY AND MAXIPIME 2G Q 8HR.
[2019-08-16 09:41] LABS: BILIRUBIN NEGATIVE (NEGATIVE); GLUCOSE 1000 mg/dL (NEGATIVE); KETONE SMALL mg/dL (NEGATIVE); NITRITE NEGATIVE (NEGATIVE); UROBILINOGEN 4 mg/dL (NORMAL)
[2019-08-16 09:42] LABS: BACTERIA MODERATE /hpf (NEGATIVE); CALCIUM OXALATE CRYSTALS RARE /hpf (NONE SEEN); RED CELLS - URINE 0-5 /hpf (0-5); WHITE CELLS - URINE 0-5 /hpf (NEGATIVE)
--- NOTE | 2019-08-16 10:23 | NUR ---
OFF BIPAP AT THIS TIME. PLACED ON VAPOTHER 40L AT 100%. 02 SAT 93%. LARGE AMOUNT OF THICK JOHNSON MUCUS SUCTION FROM MOUTH. ORAL CARE PROVIDED. WILL CONTINUE TO MONITOR.
--- NOTE | 2019-08-16 11:31 | NUR ---
PT FOUND ON 100 VAPOTHERM, ANN GALLO TOOK PT OFF BIPAP AND PLACED ON VAPOTHERM
--- NOTE | 2019-08-16 12:03 | NUR ---
Nutrition Follow-up: Pt receiving Pulmocare @ 40 at time of visit this AM. Diet: Pulmocare @ 40 Wt: 253.5# (08/15); 271.1# (08/13); 272.8# (08/05). Noted I/Os (-1167 cc on 08/14, -2593 cc on 08/13, -3365 cc on 08/12) Last BM: 08/14 per chart Labs noted: Glu 298, Na 145 Meds noted: Bumex, KCl, KDur, Protonix, Humalog -TF managed by MD; may consider increase to goal rate of 50 mL/hr for additional calories/protein. -Monitor wt. -RD following.
--- NOTE | 2019-08-16 13:40 | NUR ---
BATH GIVEN. COMPLETE LINEN CHANGE PROVIDED. NASTATIN POWDER APPLIED TO GROIN, ABDOMEN FOLD, AND UNDER ARMS. PT PLACED ON BIPAP AT THIS TIME PER ORDER. PT TOLERATED BATH WELL. NO FURTHER NEEDS AT THIS TIME. WILL CONTINUE TO MONITOR.
--- NOTE | 2019-08-16 14:07 | NUR ---
DR. DUPREE NOTIFIED OF CONSULT.
--- NOTE | 2019-08-16 14:28 | NUR ---
CALLED PLACED TO YING ANAYA PATIENT'S OLDER BROTHER. ADDRESSED CODE STATUS. MR. ANAYA WOULD LIKE PT TO BE DNR. WILL NOTIFY DR. MCFADDEN.
--- NOTE | 2019-08-16 14:36 | NUR ---
JODI CALDERON WITH DR. MCFADDEN NOTIFIED THAT YING ANAYA DECIDED TO MAKE PATIENT DNR.
--- NOTE | 2019-08-16 15:02 | NUR ---
DRESSING CHANGED ON RIGHT FOOT PER ORDER. WOUND CLEANED AND COVER WITH ADAPTIC DRESSING AND 4X4'S SECURED WITH KURLIX AND TAPE. TP RESTING COMFORTABLY. CONTINUES ON BIPAP AT 70%. NO ACUTE CHANGES FROM PREVIOUS ASSESSMENT. WILL CONTINUE TO MONITOR.
--- NOTE | 2019-08-16 15:35 | NUR ---
DR. DUPREE AT BEDSIDE.
--- NOTE | 2019-08-16 16:48 | NUR ---
VERGARA CATHETER DC'D PER ORDERS. NEW 16 ANGUILLAN VERGARA CATHETER INSERTED USING STERILE TECHNIQUE PER DR. VILLAFANA' ORDER. PT TOLERATED WELL. NO FURTHER NEEDS AT THIS TIME. WILL CONTINUE TO MONITOR.
--- NOTE | 2019-08-16 17:30 | NUR ---
OFF BIPAP AT THIS TIME. ON VAPOTHERM AT 40L AT 100%.
--- NOTE | 2019-08-16 19:30 | NUR ---
REPORT REC'D AND CARE ASSUMED, PT REC'D ON VAPOTHERM @ 40LITERS AND 100%, OPENS EYES TO VERBAL STIMULI AND NODS IN UNDERSTANDING, FOLLOWS COMMANDS, WILL NOT ANSWER ORIENTATION QUESTIONS, DOES NOT VERBALLY RESPOND ALWAYS WHEN ASKED A QUESTION, SKIN WARM AND DRY WITH DRY PATCHES AND SCABS TO UPPER ARMS, ABD SOFT BS X 4, LEFT SCROTAL AREA WITH 4X4 TO SITE BLOODY DRAINAGE NOTED, VERGARA PATENT DRAINING CONCENTRATED DONTAE COLORED URINE, LOWER EXTS DISCOLORED DARK AREAS TO SHINNS, LEFT TOES PREVIOUSLY AMPUTATED, RIGHT FOOT WITH DRSG CDI, HEELS PROTECTORS INTACT, 1/2 DOLLAR SIZE BLACK SCABBED AREA TO LEFT HEEL, BOTH LEGS BRIDGED AND PADDED WITH PILLOWS, RIGHT A/C PIV NS @ 10CC/HR, SR UP X 2, BED IN LOWEST POSITION, FAN ON FOR PT COMFORT, WILL MONITOR CLOSELY FOR CHANGES.
--- NOTE | 2019-08-16 21:45 | NUR ---
EVENING MEDS GIVEN ORDERED, ASKED PT IF HE WAS HOT, STATES " I AM BURNING UP", SHEET LEFT OFF FOR PT COMFORT, FAN REMAINS ON IN ROOM, PT WITH PRODUCTIVE SOUNDING COUGH, UNABLE TO COUGH OUT SECRETIONS OR WILL NOT TRY, SPUTUM SAMPLE OBTAINED WITH RADHA AND RT NOTIFIED.
--- NOTE | 2019-08-16 22:05 | NUR ---
PT REPOSITIONED OVER ONTO LEFT SIDE SUPPORTED WITH PILLOWS, ORAL CARE PROVIDED, TOLERATED WELL, WILL CONT TO MONITOR FOR CHANGES.
--- NOTE | 2019-08-16 23:15 | NUR ---
REASSESSMENT COMPLETED, RT AT BS, PT REMOVED FROM VAPOTHERM AND PLACED ON BIPAP AT 70%, O2 SAT 97%, BP STABLE.
[2019-08-17] VITALS (21 sets, daily range): BP systolic 95–119; BP diastolic 34–95
--- NOTE | 2019-08-17 02:00 | NUR ---
PT REPOSITIONED IN BED FOR COMFORT, LOWER EXT'S REPOSITIONED ON PILLOWS.
--- NOTE | 2019-08-17 04:30 | NUR ---
LAB AT FOR AM LAB DRAW
[2019-08-17 05:49] LABS: BASOPHILS 0.2 % (0-2); EOSINOPHILS 0.4 % (0-7); HEMATOCRIT 48.9 % (42.0-54.0); HEMOGLOBIN 14.1 g/dL (13.5-17.5); IMMATURE GRANULOCYTES 0.5 % (0-5); MCH 27.8 pg (26.0-34.0); MCHC 28.8 g/dL (31.0-37.0); MCV 96.3 fL (80.0-100.0); MEAN PLATELET VOLUME 12.3 fL (7.4-10.4); MONOCYTES 8.4 % (2-11); NEUTROPHILS 84.5 % (40-80); PLATELET COUNT 308 10x3/uL (130-400); RBC 5.08 10x6/uL (4.20-6.10); RDW 17.9 % (11.5-14.5); WBC 24.9 10x3/uL (4.8-10.8)
[2019-08-17 05:53] LABS: CALCIUM 9.9 mg/dL (8.5-10.1); CHLORIDE - SERUM 97 mmol/L (98-107); CREATININE - SERUM 1.1 mg/dL (0.6-1.3); GLUCOSE 328 mg/dL (74-106); SODIUM 131 mmol/L (136-145); eGFR NON AFRICAN AMERICAN 71 mL/min (90-120)
[2019-08-17 05:57] LABS: CALC OSMOLALITY 282 mosm/kg (275-300); POTASSIUM - SERUM 3.2 mmol/L (3.5-5.1); UREA NITROGEN 32 mg/dL (7-18)
[2019-08-17 05:58] LABS: CARBON DIOXIDE 43.6 mmol/L (21.0-32.0)
--- NOTE | 2019-08-17 15:55 | NUR ---
1600--PLACE BACK ON BIPAP HEART RATE 180
--- NOTE | 2019-08-17 16:44 | NUR ---
1530--PLACE BACK ON BIPAP
--- NOTE | 2019-08-17 18:30 | NUR ---
0700-RECIEVED PER FLOW SHEET-BIPAP IN PLACE-L IV SALINE LOCKED 1030-CHG BATH DONE -R FOOT DRG CHANGED-ADAPTIC--ANTERIOR PERINEAL OPEN ABCESS NOTED -SEROUS/BROWN DRAINAGE-DR DUPREE AWARE 1130-DR MCFADDEN AT BEDSIDE-PT PLACED ON VAPOTHERM 1600-NOTED HR 157-ATRIAL TACH ?FLUTTER-PLACED BACK TO BIPAP-SPONT RETURN TO SR 87-SAT 100%
--- NOTE | 2019-08-17 19:00 | NUR ---
PT ASSESSMENT COMPLETED AT THIS TIME, NO CHANGES NOTED FROM NURSE REPORT, VSS, WILL MONITOR FOR CHANGES
--- NOTE | 2019-08-17 20:20 | NUR ---
IV STARTED TO RIGHT UPPER ARM WITH 22GA IV X2 ATTEMPTS
--- NOTE | 2019-08-17 21:00 | NUR ---
PT RESTING WITH EYES CLOSED NO CHANGES NOTED, VSS, WILL MONITOR FOR CHANGES
--- NOTE | 2019-08-17 23:00 | NUR ---
PT RESTING WITH EYES CLOSED RESP EVEN AND NON LABORED, VSS, WILL MONITOR FOR CHANGES
[2019-08-18] VITALS (24 sets, daily range): BP systolic 77–103; BP diastolic 43–69
--- NOTE | 2019-08-18 01:00 | NUR ---
NO DISTRESS NOTED, VSS, WILL MONITOR FOR CHANGES
--- NOTE | 2019-08-18 03:00 | NUR ---
PT REASSESSMENT COMPLETED AT THIS TIME, NO CHANGES NOTED FROM PREVIOUS EXAM, VSS, WILL MONITOR FOR CHANGES
--- NOTE | 2019-08-18 05:17 | NUR ---
PT IAND O COMPLETED AND DOCUMENTED, NO DISTRES NOTED, WILL MONITOR FOR CHANGES
[2019-08-18 05:59] LABS: ANION GAP 4.2 mmol/L (8-16); BILIRUBIN - TOTAL 1.48 mg/dL (0.2-1.3); CALCIUM 9.8 mg/dL (8.5-10.1); CREATININE - SERUM 1.1 mg/dL (0.6-1.3); POTASSIUM - SERUM 3.2 mmol/L (3.5-5.1); PROTEIN - SERUM 8.4 g/dL (6.4-8.2)
[2019-08-18 06:06] LABS: BASOPHILS 0.2 % (0-2); EOSINOPHILS 0.3 % (0-7); HEMATOCRIT 48.6 % (42.0-54.0); HEMOGLOBIN 13.9 g/dL (13.5-17.5); IMMATURE GRANULOCYTES 0.4 % (0-5); LYMPHOCYTES 9.5 % (15-50); MCH 27.9 pg (26.0-34.0); MCHC 28.6 g/dL (31.0-37.0); MCV 97.6 fL (80.0-100.0); MEAN PLATELET VOLUME 12.4 fL (7.4-10.4); NEUTROPHILS 82.6 % (40-80); PLATELET COUNT 265 10x3/uL (130-400); RBC 4.98 10x6/uL (4.20-6.10); RDW 18.3 % (11.5-14.5)
[2019-08-18 06:11] LABS: WBC 17.6 10x3/uL (4.8-10.8)
--- NOTE | 2019-08-18 07:42 | NUR ---
0800--PLACE ON VAPOTHERM AT 100%, MOUTHCARE DONE
--- NOTE | 2019-08-18 11:11 | NUR ---
1100---PLACE BACK ON BIPAP
--- NOTE | 2019-08-18 15:01 | NUR ---
1500--INCREASE TO 18/[address] MCFADDEN
--- NOTE | 2019-08-18 15:53 | NUR ---
1145-DR DUPREE AT BEDSIDE-DIRECTED TO PACK OPEN ABCESS TO ANTERIOR PERINEAL AREA WITH IDOFOAM DRG-NOTED BROWN SEROUS DRAINAGE-7 INCHES PACKED-PT NON RESPONSIVE DURING PROCEDURE 1515-BIPAP CHANGE BY RT DIRECTED BY DR MCFADDEN-
--- NOTE | 2019-08-18 18:18 | NUR ---
1800-NOTIFIED Barbara GOMEZ FOR [employer] AUTOMOBILE MECHANIC ASSISTANT OF TEMP 101.[address] -NO FURTHER ORDERS TYLENOL 500MG VIA NGT GIVEN
--- NOTE | 2019-08-18 18:29 | NUR ---
ORAL TRACHEAL SUCTION FOR THICK WHITE YELLOW MUCUS
--- NOTE | 2019-08-18 21:00 | NUR ---
PT IS STILL LETHARGIC AND ON BIPAP, NO B/P STILL TRENDING LOW, WILL MONITOR AND NOTIFIY BEEKEEPER FARMER NEEDED
--- NOTE | 2019-08-18 22:33 | NUR ---
PT HR STAYING IN 160'S DR MENDIETA CALLED AND ORDERS GIVEN
--- NOTE | 2019-08-18 23:00 | NUR ---
PT REASSESSEMNT COMPLETED AT THIS TIME, PT'S HR IS STILL 140'S BUT RATE IS SLOWING DOWN, WILL MONITOR FOR CHANGES
[2019-08-19] VITALS (24 sets, daily range): BP systolic 89–111; BP diastolic 51–76
--- NOTE | 2019-08-19 01:00 | NUR ---
PT RESTING ON BIPAP, VSS, WILL MONITOR FOR CHANGES
--- NOTE | 2019-08-19 03:00 | NUR ---
PT REASSESSMENT COMPLETED AT THIS TIME, PT HR IS INCREASED 110-120 ST ON THE MONITOR, NO OTHER CHANGES NOTED, WILL MONITOR FOR CHANGES
--- NOTE | 2019-08-19 05:08 | NUR ---
pt resting on bipap, hr still 110-120's, will montior for changes
[2019-08-19 06:32] LABS: BASOPHILS 0.2 % (0-2); EOSINOPHILS 1.5 % (0-7); IMMATURE GRANULOCYTES 0.5 % (0-5); LYMPHOCYTES 10.2 % (15-50); MCH 27.6 pg (26.0-34.0); MCHC 28.3 g/dL (31.0-37.0); MCV 97.7 fL (80.0-100.0); MONOCYTES 6.6 % (2-11); PLATELET COUNT 270 10x3/uL (130-400); RBC 4.71 10x6/uL (4.20-6.10); RDW 18.4 % (11.5-14.5); WBC 15.6 10x3/uL (4.8-10.8)
[2019-08-19 06:38] LABS: ANION GAP 7.9 mmol/L (8-16); CALCIUM 9.3 mg/dL (8.5-10.1); CARBON DIOXIDE 37.6 mmol/L (21.0-32.0); CREATININE - SERUM 1.2 mg/dL (0.6-1.3); POTASSIUM - SERUM 3.5 mmol/L (3.5-5.1)
[2019-08-19 06:44] LABS: ALBUMIN 1.9 g/dL (3.4-5.0); BILIRUBIN - TOTAL 1.08 mg/dL (0.2-1.3); MAGNESIUM - SERUM 2.4 mg/dL (1.8-2.4); PHOSPHOROUS 3.1 mg/dL (2.5-4.9)
--- NOTE | 2019-08-19 07:34 | NUR ---
Nutrition follow-up: Pulmocare infusing via NGT @ 40 ml/hr Remains NPO per speech BIPAP Labs reviewed Wt: 254# RDN following.
--- NOTE | 2019-08-19 09:24 | NUR ---
0700 PT RECIEVED ALERT, WITHDRAWS BUT DOES NOT FOLLOW COMMANDS OR VERBALIZE, NGT IN PLACE, ON BIPAP, VSS, NO SIGNS OF PAIN, SEE SHIFT ASSESSMENT FOR DETAILS 0900 REPOSITIONED
--- NOTE | 2019-08-19 09:33 | NUR ---
PAGED DR DURPEE TO CLARIFY WOUND PACKING, ORDERS TO CONSULT WOUND CARE AND TO PACK 3X WEEKLY, VERIFIED WEEKLY NOT DAILY, WOUND CARE NOTIFIED
--- NOTE | 2019-08-19 12:01 | NUR ---
LEFT GROIN. PT HAS OPEN WOUND MEASURING 1CM X 1CM X 7.5CM. IT APPEARS TO HAVE BEEN AN ABSCESS. THERE IS NO ODOR OR DRAINAGE NOTED. PACKING REMOVED, CLEANSED WITH SALINE AND PACKED AGAIN WITH 1/2" IODOFORM GAUZE STRIP. PT TOLERATED WELL.
--- NOTE | 2019-08-19 13:38 | NUR ---
Nutrition consult: Received written order from Dr. Clemente to for water flushes. RDN ordered 30 ml H2O flush q hour and will reassess in am. RDN following.
--- NOTE | 2019-08-19 18:24 | NUR ---
PT REPOSITIONED EVERY 2 HOURS THROUGHOUT DAY, NO SIGNS OF PAIN, DOES NOT FOLLOW COMMANDS, OCCASIONALLY MOVES LEFT ARM INDEPENDENTLY, WOUND PACKED BY WOUND CARE NURSE, NO PHONE CALLS FROM FAMILY. NO NEEDS NOTED
--- NOTE | 2019-08-19 19:00 | NUR ---
PT ASSESSMENT COMPLETED AT THIS TIME, NO CHANGES NOTED FROM NURSE REPORT, VSS, WILL MONITOR FOR CHANGES
--- NOTE | 2019-08-19 21:00 | NUR ---
PT RESTING ON BIPAP NO CHANGES NOTED, WILL MONITOR FOR CHANGES
--- NOTE | 2019-08-19 23:00 | NUR ---
PT REASSESSMENT COMPLETED AT THIS TIME, NO CHANGES NOTED FROM PREVIOUS EXAM, WILL MONITOR FOR CHANGES
[2019-08-20] VITALS (28 sets, daily range): BP systolic 86–115; BP diastolic 54–72
--- NOTE | 2019-08-20 01:00 | NUR ---
PT RESTING ON BIPAP, NO CHANGES NOTED, VSS, WILL MONITOR FOR CHANGES
--- NOTE | 2019-08-20 03:00 | NUR ---
PT REASSESSMENT COMPLETED AT THIS TIME, NO CHANGES NOTED FROM PREVIOUS EXAM, VSS, WILL MONITOR FOR CHANGES
[2019-08-20 11:11] LABS: BASOPHILS 0.4 % (0-2); EOSINOPHILS 1.3 % (0-7); HEMATOCRIT 42.3 % (42.0-54.0); HEMOGLOBIN 12.1 g/dL (13.5-17.5); IMMATURE GRANULOCYTES 0.5 % (0-5); LYMPHOCYTES 10.2 % (15-50); MCH 27.5 pg (26.0-34.0); MCHC 28.6 g/dL (31.0-37.0); MCV 96.1 fL (80.0-100.0); MEAN PLATELET VOLUME 12.1 fL (7.4-10.4); MONOCYTES 6.9 % (2-11); NEUTROPHILS 80.7 % (40-80); PLATELET COUNT 227 10x3/uL (130-400); RDW 18.3 % (11.5-14.5)
[2019-08-20 11:28] LABS: ALBUMIN 1.9 g/dL (3.4-5.0); ALKALINE PHOSPHATASE 100 U/L (30-120); ALT (SGPT) 10 U/L (10-68); BILIRUBIN - TOTAL 0.77 mg/dL (0.2-1.3); CALC OSMOLALITY 320 mosm/kg (275-300); CALCIUM 8.6 mg/dL (8.5-10.1); CARBON DIOXIDE 33.4 mmol/L (21.0-32.0); CHLORIDE - SERUM 115 mmol/L (98-107); GLUCOSE 282 mg/dL (74-106); POTASSIUM - SERUM 3.7 mmol/L (3.5-5.1); PROTEIN - SERUM 7.8 g/dL (6.4-8.2); SODIUM 152 mmol/L (136-145); UREA NITROGEN 38 mg/dL (7-18); eGFR NON AFRICAN AMERICAN 80 mL/min (90-120)
--- NOTE | 2019-08-20 18:21 | NUR ---
SPOKE WITH YING FERNÁNDEZ (PTS BROTHER VIA PHONE) A WITNESS THAT THEY WANT TO MAKE PT COMFORT MEASURES ONLY AND DO NOT WANT A PEG TUBE PLACED. HE SAID IF HE LASTED VERY LONG AN HOSPICE CONSULT IS OK. CALLED JANUARY RAMACHANDRAN APN AND DR SHAH.
--- NOTE | 2019-08-20 19:00 | NUR ---
REPORT RECEVIED FROM THE OFF GOING RN. SEE ASSESSMENT IN THE PTS FLOW SHEET. WAS NOTIFIED BY THE OFF GOING RN THAT THE FAMILY WISHES COMFORT MEASEURES AND FOR THE BIPAP TO BE REMOVED TONIGHT. PT CURRENTLY ON THE BIPAP. VSS AT THIS TIME. PT AROUSES TO VERBAL STIMULI BUT OBTUNDED. CALL LIGHT IN REACH. WILL CONT POC.
--- NOTE | 2019-08-20 19:05 | MORECARE ---
CASE MANAGEMENT DISCHARGE SUMMARY PATIENT: YAZAN ANAYA UNIT: [id number] ADM DATE: 08/04/19 AGE: 63 : 53 SEX: M ROOM/BED: [facility] AUTHOR: KIMBERLEY,DOC PHYSICIAN: REFERRING PHYSICIAN: ABBY ROCK MD DATE OF SERVICE: 08/20/19 Discharge Plan Patient Name: YAZAN ANAYA Facility: [facility]:[place] : 1955 Planned Disposition: Home with Home Health Anticipated Discharge Date: Discharge Date: Expected LOS: Initial Reviewer: [email or web address] Initial Review Date: 08/04/2019 Generated: 08/20/19 8:04 pm Comments DCP- Discharge Planning Updated by [email or web address]: Serenity Fink on 08/20/19 6:[address] CM called and spoke with Jonnie Anaya (brother) [phone] closest relative other than a cousin. CM spoke to him regarding PEG placement and Jonnie stated that he would like to make patient comfort care. He doesn't want him put through surgery. Jonnie spoke with patient's nurse Salvador to verify what families request. Jonnie stated that if needed we could contact hospice. EFE for [facility] if needed. Nursing contacting physicians for orders. CM will continue to follow and assist as needed with discharge planning / needs DCP- Discharge Planning Updated by [email or web address]: Serenity Fink on 08/06/19 1:[address] Patient Name: YAZAN ANAYA Admission Status: ER Accout number: [id number] Admission Date: 08-04-2019 : 1955 Admission Diagnosis: Attending: ABBY ROCK Current LOS: 2 Anticipated DC Date: Planned Disposition: Home with Home Health Primary Insurance: MEDICAID [place] Discharge Planning Comments: CM contacted Ernestine Schwab listed as patient's contact since patient is currently on vent and sedated CM spoke with Ernestine after explaining CM role and obtaining verbal consent. Patient lives at home alone where he is independent with his care and plans to return there upon discharge. CM asked Ernestine if she was patient's POA or if he had one assigned and she stated that as far as she knows he doesn't have a POA. She states as far as family it is her another cousin and a brother that is estranged. CM discussed availability / needs of home health and medical equipment. Ernestine wishes for patient to resume [facility] and personal care with [facility] upon discharge EFE signed. Ernestine denies any discharge needs at this time. CM will continue to follow and assist as needed with discharge planning / needs. Slot Floor Person: Serenity Fink DCP- Discharge Planning Updated by [email or web address]: Serenity Fink on 08/05/19 5:[address] Patient is sedated on vent and no family available at this time. CM will continue to follow and assist as needed with discharge planning / needs. DCPIA - Discharge Planning Initial Assessment Updated by [email or web address]: Serenity Fink on 08/06/19 2:03 pm * Is the patient Alert and Oriented? No * How many steps to enter\exit or inside your home? * PCP [facility] * [facility] * Preadmission Environment Home with Family * ADLs Independent * Equipment Power Chair or Electric Scooter * Other Equipment CPAP, GLUCOMETER, NEBULIZER , W/C, HOME/PORTABLE [address] [place] [address] HOME PATIENT * List name and contact numbers for known caregivers / representatives who currently or will assist patient after discharge: GELA HENDERSON, * Verbal permission to speak to the caregivers and representatives has been obtained from the patient. Yes * Community resources currently utilized None * Additional services required to return to the preadmission environment? No * Can the patient safely return to the preadmission environment? Yes * Has this patient been hospitalized within the prior 30 days at any hospital? Yes Last DP export: 08/06/19 1:19 p Patient Name: YAZAN ANAYA Page [id number] at 1905 All edits/amendments must be made on the electronic document DICTATION DATE: 08/20/191903 SECRETARY OF STATE: JUSTIN 08/20/191903 RPT#: [id number] DC DATE: STATUS: ADM IN [facility] [address] [place] [address] END OF REPORT
--- NOTE | 2019-08-20 20:25 | NUR ---
SPOKE WITH YING. YING STATED THAT HE IS AWARE THAT ONCE WE REMOVE THE BIPAP THAT THE PT WILL MOST LIKELY PASS AWAY. HE STATED THAT HE WISHES THAT THE PATIENT BE PUT ON COMFORT MEASURES. WILL PROCEED.
--- NOTE | 2019-08-20 20:47 | NUR ---
BIPAP REMOVED. PRN MORPHINE GIVEN FOR AIR HUNGER.
--- NOTE | 2019-08-20 20:52 | NUR ---
PRN MORPHINE GIVEN TO THE PT. PT DESATING TO 56%. PT APPEARS COMFORTABLE AFTER MORPHINE GIVEN. PT ON 2L VIA NC PER ORDERS. WILL CONT POC.
--- NOTE | 2019-08-20 21:29 | NUR ---
SPOKE WITH YING. HE STATED THAT THEY WISH TO USE [facility] WHENEVER THE PT PASSES AWAY.
--- NOTE | 2019-08-20 21:47 | NUR ---
PT ASYSTOLE. APNEA NOTED. NO BP. YING ANAYA NOTIFIED OF . ER NOTIFIED TO PRONOUCE .
--- NOTE | 2019-08-20 22:09 | NUR ---
DR CHOWDARY IN THE UNIT. PROUNCED AT 2210. FIONA NOTIFIED. PHOTOCOMPOSING KEYBOARD OPERATOR NOTIFIED.
--- NOTE | 2019-08-20 22:18 | NUR ---
HUEY CABRAL WITH THE EGG PROCESSOR OK TO RELEASE THE BODY.
--- NOTE | 2019-08-20 23:20 | NUR ---
SPOKE WITH LYNDON WITH FIONA. DOES NOT MEET CRITERIA FOR TISSUE DONATION.
--- NOTE | 2019-08-21 | NUR ---
HOME DAVIDALEKSANDR CAME AND TOOK THE BODY ALONG WITH ALL OF THE BELONINGS INCLUDING THE PTS DENTURS WITH HIM.
--- NOTE | 2019-08-21 09:01 | MORECARE ---
CASE MANAGEMENT DISCHARGE SUMMARY PATIENT: YAZAN ANAYA UNIT: [id number] ADM DATE: 08/04/19 AGE: 63 : 53 SEX: M ROOM/BED: [facility] AUTHOR: KIMBERLEYDOC PHYSICIAN: REFERRING PHYSICIAN: ABBY ROCK MD DATE OF SERVICE: 08/21/19 Discharge Plan Patient Name: YAZAN ANAYA Facility: [facility]:[place] : 1955 Planned Disposition: Home with Home Health Anticipated Discharge Date: Discharge Date: 08/20/2019 Expected LOS: Initial Reviewer: [email or web address] Initial Review Date: 08/04/2019 Generated: 08/21/19 10:00 am Comments DCP- Discharge Planning Updated by [email or web address]: Serenity Fink on 08/20/19 6:[address] CM called and spoke with Jonnie Anaya (brother) [phone] closest relative other than a cousin. CM spoke to him regarding PEG placement and Jonnie stated that he would like to make patient comfort care. He doesn't want him put through surgery. Jonnie spoke with patient's nurse Salvador to verify what families request. Jonnie stated that if needed we could contact hospice. EFE for [facility] if needed. Nursing contacting physicians for orders. CM will continue to follow and assist as needed with discharge planning / needs DCP- Discharge Planning Updated by [email or web address]: Serenity Fink on 08/06/19 1:[address] Patient Name: YAZAN ANAYA Admission Status: ER Accout number: [id number] Admission Date: 08-04-2019 : 1955 Admission Diagnosis: Attending: ABBY ROCK Current LOS: 2 Anticipated DC Date: Planned Disposition: Home with Home Health Primary Insurance: MEDICAID [place] Discharge Planning Comments: CM contacted Ernestine Schwab listed as patient's contact since patient is currently on vent and sedated CM spoke with Ernestine after explaining CM role and obtaining verbal consent. Patient lives at home alone where he is independent with his care and plans to return there upon discharge. CM asked Ernestine if she was patient's POA or if he had one assigned and she stated that as far as she knows he doesn't have a POA. She states as far as family it is her another cousin and a brother that is estranged. CM discussed availability / needs of home health and medical equipment. Ernestine wishes for patient to resume [facility] and personal care with [facility] upon discharge EFE signed. Ernestine denies any discharge needs at this time. CM will continue to follow and assist as needed with discharge planning / needs. Blowing [place]: Serenity Fink DCP- Discharge Planning Updated by [email or web address]: Serenity Fink on 08/05/19 5:[address] Patient is sedated on vent and no family available at this time. CM will continue to follow and assist as needed with discharge planning / needs. DCPIA - Discharge Planning Initial Assessment Updated by [email or web address]: Serenity Fink on 08/06/19 2:03 pm * Is the patient Alert and Oriented? No * How many steps to enter\exit or inside your home? * PCP [facility] * [facility] * Preadmission Environment Home with Family * ADLs Independent * Equipment Power Chair or Electric Scooter * Other Equipment CPAP, GLUCOMETER, NEBULIZER , W/C, HOME/PORTABLE [address] [place] [address] PATIENT * List name and contact numbers for known caregivers / representatives who currently or will assist patient after discharge: GELA HENDERSON, * Verbal permission to speak to the caregivers and representatives has been obtained from the patient. Yes * Community resources currently utilized None * Additional services required to return to the preadmission environment? No * Can the patient safely return to the preadmission environment? Yes * Has this patient been hospitalized within the prior 30 days at any hospital? Yes Last DP export: 08/20/19 6:05 pm Patient Name: YAZAN ANAYA Page [id number] at 0901 All edits/amendments must be made on the electronic document DICTATION DATE: 08/21/19899 POLISHING WHEEL REPAIRER: JUSTIN 08/21/19899 RPT#: [id number] DC DATE:08/20/19 STATUS: DIS IN [facility] [address] [facility] [place] [address] END OF REPORT
== END 2019-08-20 23:30 | DRG 207 ==
LOC: D.ER 16:15 → D.CVICU 17:22 → D.ICU 17:22 → D.M2 17:22 → D.ICU 08-05 11:03 → D.CVICU 08-11 16:27
PROVIDERS: Emergency Medicine; Family Medicine; Internal Medicine Nephrology; Internal Medicine Pulmonary Disease; ADMIT Family Medicine; ATTEND Family Medicine
PROC: 5A1955Z Respiratory Ventilation, Greater than 96 Consecutive Hours (ICD-10-PCS; principal; 2019-08-05)
PROC: 0BH17EZ Insertion of Endotracheal Airway into Trachea, Via Natural or Artificial Opening (ICD-10-PCS; 2019-08-05)
PROC: 0B9F7ZX Drainage of Right Lower Lung Lobe, Via Natural or Artificial Opening, Diagnostic (ICD-10-PCS; 2019-08-05)
PROC: 0B9C7ZX Drainage of Right Upper Lung Lobe, Via Natural or Artificial Opening, Diagnostic (ICD-10-PCS; 2019-08-05)
DX: J47.0 Bronchiectasis with acute lower respiratory infection (principal); I50.33 Acute on chronic diastolic (congestive) heart failure; J96.22 Acute and chronic respiratory failure with hypercapnia; J96.21 Acute and chronic respiratory failure with hypoxia; G93.41 Metabolic encephalopathy; A41.9 Sepsis, unspecified organism; R40.2314 Coma scale, best motor response, none, 24 hours or more after hospital admission; R40.2114 Coma scale, eyes open, never, 24 hours or more after hospital admission; R40.2214 Coma scale, best verbal response, none, 24 hours or more after hospital admission; E87.1 Hypo-osmolality and hyponatremia; N17.9 Acute kidney failure, unspecified; F17.203 Nicotine dependence unspecified, with withdrawal; N39.0 Urinary tract infection, site not specified; J18.9 Pneumonia, unspecified organism; J47.1 Bronchiectasis with (acute) exacerbation; G47.33 Obstructive sleep apnea (adult) (pediatric); E11.9 Type 2 diabetes mellitus without complications; I83.029 Varicose veins of left lower extremity with ulcer of unspecified site; Z91.14 Patient's other noncompliance with medication regimen; I71.2 Thoracic aortic aneurysm, without rupture; I25.10 Atherosclerotic heart disease of native coronary artery without angina pectoris; J30.9 Allergic rhinitis, unspecified; F17.200 Nicotine dependence, unspecified, uncomplicated; I73.9 Peripheral vascular disease, unspecified; I11.0 Hypertensive heart disease with heart failure; R53.81 Other malaise; I10 Essential (primary) hypertension; I48.91 Unspecified atrial fibrillation; N50.89 Other specified disorders of the male genital organs; R13.12 Dysphagia, oropharyngeal phase; R47.1 Dysarthria and anarthria